=== PATIENT | female | born 1975 | race Caucasian/White ===

== ENCOUNTER 2022-12-27 00:18 | Emergency (ER) | payer OTHER, SELFPAY ==
[2022-12-27 00:24] VITALS: BP 145/94; PULSE 71; RESP 20; TEMP 36.6; O2SAT 99; BMI 47.0
--- NOTE | 2022-12-27 00:45 | ED.ABDPAIN1 ---
HPI - Abdominal Pain General Chief Complaint: Abdominal Pain Stated Complaint: abd pain Time Seen by Provider: 12/27/22 00:44 Mode of arrival: walk-in Limitations: no limitations History of Present Illness HPI narrative: This 47-year-old female who is visiting her family locally and from [place] presents for evaluation of right lower quadrant abdominal pain. The patient has a history of Crohn's disease. She states that she started feeling unwell on Sunday, 2 days ago. Since that time she started having some bloody diarrhea. She is currently on some steroids due to her asthma. She denies any fever. She states that this is a typical Crohn's exacerbation for her, she gets pain in the right lower quadrant/terminal ileum area. She has never had to have a colon resection. She does get colonoscopy frequently due to a family history of colon cancer. She denies any chest pain or shortness of breath. She has not had a fever. She denies any dizziness or syncope. Related Data Allergies Allergy/AdvReac Type Severity Reaction Status Date / Time prochlorperazine Allergy Intermediate Shakiness Verified 12/27/22 00:32 [From Compazine] Iodinated Contrast Media Allergy Hives Verified 12/27/22 00:33 NSAIDS (Non-Steroidal AdvReac Severe Anaphylaxis Verified 12/27/22 00:32 Anti-Inflamma promethazine [From Phenergan] AdvReac Intermediate Shakiness Verified 12/27/22 00:32 Review of Systems ROS Status of ROS 10 or more systems reviewed and unremarkable except as noted in history and below [facility] Medical History (Updated 12/27/22 @ 03:20 by Melvi Joe MD) Social History Smoking status: Never smoker Exam Narrative Exam Narrative: Nurses note and vital signs reviewed. She is mildly hypertensive a blood pressure of 145/94, has a normal pulse, normal temperature and is not hypoxic with pulse ox of 99 percent on room air General: Obese female resting comfortably on the stretcher, no respiratory distress, she moves easily about the stretcher with no apparent discomfort. No active vomiting. Skin: Warm, dry, no pallor noted. There is no rash noted. Head: Normocephalic, atraumatic Eye: Normal conjunctiva, EOMI. PERRL Ears, Nose, Mouth, and Throat: oral mucosa is moist. Cardiovascular: Regular Rate and Rhythm S1 and S2, no murmurs rubs or gallops appreciated Respiratory: Patient is in no distress, no accessory muscle use, lungs are clear to auscultation, no wheezing, rales or rhonchi Back: non-tender, no CVA tenderness bilaterally to percussion. GI: Obese, soft, nondistended, tenderness in the right mid to lower quadrant, no voluntary guarding appreciated Musculoskeletal: The patient has no evidence of calf tenderness, no pitting edema, symmetrical pulses noted bilaterally Neurological: A&O x4, normal speech Psychiatric: Cooperative Constitutional Vital Signs, click to edit/add: Last Vital Signs Temp 97.9 F 12/27/22 00:24 Pulse 71 12/27/22 00:24 Resp 20 12/27/22 00:24 BP 145/94 H 12/27/22 00:24 Pulse Ox 99 12/27/22 00:24 O2 Del Method Room Air 12/27/22 00:24 Course Vital Signs Vital signs: Vital Signs Temperature 97.9 F 12/27/22 00:24 Pulse Rate 71 12/27/22 00:24 Respiratory Rate 20 12/27/22 00:24 Blood Pressure 145/94 H 12/27/22 00:24 Pulse Oximetry 99 12/27/22 00:24 Oxygen Delivery Method Room Air 12/27/22 00:24 Temperature 97.9 F 12/27/22 00:24 Pulse Rate 71 12/27/22 00:24 Respiratory Rate 20 12/27/22 00:24 Blood Pressure 145/94 H 12/27/22 00:24 Pulse Oximetry 99 12/27/22 00:24 Oxygen Delivery Method Room Air 12/27/22 00:24 MDM - Abdominal Pain MDM Narrative Medical decision making narrative: This 47-year-old female who is visiting from [place] and has a history of Crohn disease presents for evaluation of a Crohn's exacerbation with abdominal pain in the right mid to lower quadrant, nausea, vomiting and bloody stool. She is currently on steroid for asthma. She takes Humira for her Crohn's disease. She has never had a bowel obstruction or resection in the past. She does get yearly colonoscopies due to a family history of colon cancer. On arrival she was seen and evaluated in room 8. She is well-appearing without active vomiting. She is ambulatory without difficulty. I was able to establish an IV in her left forearm and she was given IV fluids, Zofran and a milligram of Dilaudid. On reevaluation she stated that she was still having some pain and requested additional dose of Dilaudid. I exlained to her that I could only do 2 mg of Dilaudid total or she would have to be admitted or transferred to Hospital closer to where she is from. She verbalized understanding of that. She was given additional dose of Dilaudid and then started to have redness and itching, and mild reaction from the Dilaudid. She states she typically gets this reaction from morphine. Routine labs are reviewed. She hasn't mildly elevated white count at 11.5. She has a normal hemoglobin. Her electrolytes are normal with the exception of a glucose of 155. She is not diabetic and this may be related to the fact that she was not nothing by mouth and she was also taking steroids for her asthma. She is otherwise hemodynamically stable for discharge. She requested a prescription of Zofran to use because she did not bring any Zofran with her from [place]. I did review her OARRs report and it does not show any recent activity Lab Data Labs: Lab Results 12/27/22 Range/Units 00:45 WBC 11.5 H (4.0-11.0) 10^3/uL RBC 4.92 (4.20-5.40) 10^6/uL Hgb 12.9 (12.0-16.0) g/dL Hct 40.6 (36.0-48.0) % MCV 82.5 (81.0-99.0) fL MCH 26.2 L (26.7-34.0) pg MCHC 31.8 (29.9-35.2) g/dL RDW 14.8 (11.0-15.0) % Plt Count 361 (150-450) 10^3/uL MPV 9.0 L (9.5-13.5) fL Neut % (Auto) 74.1 (43.0-75.0) % Lymph % (Auto) 18.0 L (20.5-60.0) % [place] % (Auto) 6.9 (1.7-12.0) % Eos % (Auto) 0.2 L (0.9-7.0) % Baso % (Auto) 0.3 (0.2-2.0) % Neut # (Auto) 8.5 H (1.4-6.5) 10^3/uL Lymph # (Auto) 2.1 (1.2-3.8) 10^3/uL [place] # (Auto) 0.8 (0.3-0.8) 10^3/uL Eos # (Auto) 0.0 (0.0-0.7) 10^3/uL Baso # (Auto) 0.0 (0.0-0.1) 10^3/uL Abs Immat Gran (auto) 0.06 H (0.00-0.03) 10^3/uL Imm/Tot Granulo (auto) 0.5 (0.0-0.5) % Sodium 138 (136-145) mmol/L Potassium 3.8 (3.5-5.1) mmol/L Chloride 101 (98-107) mmol/L Carbon Dioxide 27.4 (21.0-32.0) mmol/L Anion Gap 13.4 BUN 19.0 H (7.0-18.0) mg/dL Creatinine 1.02 (0.55-1.02) mg/dL Est GFR ( Amer) >60 (>=60) Est GFR (Non-Af Amer) 59 L (>=60) BUN/Creatinine Ratio 18.6 Glucose 155 H (74-106) mg/dL Calcium 9.3 (8.5-10.1) mg/dL Total Bilirubin 0.4 (0.2-1.0) mg/dL AST 16 (15-37) U/L ALT 39 (14-59) U/L Alkaline Phosphatase 74 (46-116) U/L Total Protein 7.5 (6.4-8.2) g/dL Albumin 3.6 (3.4-5.0) g/dL Globulin 3.9 g/dL Albumin/Globulin Ratio 0.9 Discharge Plan Discharge Chief Complaint: Abdominal Pain Clinical Impression: Crohn's disease Patient Disposition: Home, Self-Care Time of Disposition Decision: 03:19 Condition: Good Stand Alone Forms: Portal Instructions Referrals: Physician,Non-Staff, MD [Primary Care Provider] - 1 week
[2022-12-27 01:08] LABS: Basophils Percent Auto 0.3 % (0.2-2.0); Eosinophils Percent Auto 0.2 % (0.9-7.0); Hematocrit 40.6 % (36.0-48.0); Hemoglobin 12.9 g/dL (12.0-16.0); Immature Granulocytes Abs Auto 0.06 10^3/uL (0.00-0.03); Immature Granulocytes Pct Auto 0.5 % (0.0-0.5); Lymphocytes Absolute Auto 2.1 10^3/uL (1.2-3.8); Mean Corpuscular HGB Conc 31.8 g/dL (29.9-35.2); Mean Corpuscular Hemoglobin 26.2 pg (26.7-34.0); Mean Corpuscular Volume 82.5 fL (81.0-99.0); Monocytes Absolute Auto 0.8 10^3/uL (0.3-0.8); Monocytes Percent Auto 6.9 % (1.7-12.0); Neutrophils Absolute Auto 8.5 10^3/uL (1.4-6.5); Neutrophils Percent Auto 74.1 % (43.0-75.0); Platelet Count 361 10^3/uL (150-450); Red Blood Count 4.92 10^6/uL (4.20-5.40); Red Cell Distribution Width 14.8 % (11.0-15.0); White Blood Count 11.5 10^3/uL (4.0-11.0)
--- NOTE | 2022-12-27 01:08 | PC.NURSE ---
3 failed attempts for IV start
[2022-12-27 01:32] LABS: Alanine Aminotransferase 39 U/L (14-59); Albumin Globulin Ratio 0.9; Albumin Level 3.6 g/dL (3.4-5.0); Alkaline Phosphatase 74 U/L (46-116); Anion Gap 13.4; Aspartate Amino Transferase 16 U/L (15-37); BUN Creatinine Ratio 18.6; Bilirubin Total 0.4 mg/dL (0.2-1.0); Calcium 9.3 mg/dL (8.5-10.1); Carbon Dioxide 27.4 mmol/L (21.0-32.0); Chloride 101 mmol/L (98-107); Estimated GFR (African America >60 (>=60); Estimated GFR (Non-African Ame 59 (>=60); Globulin 3.9 g/dL; Glucose 155 mg/dL (74-106); Potassium 3.8 mmol/L (3.5-5.1); Sodium 138 mmol/L (136-145); Total Protein 7.5 g/dL (6.4-8.2)
[2022-12-27] MEDS: ONDANSETRON PF 4 MG/2 ML VIAL IV (01:41)
[2022-12-27] MEDS: HYDROMORPHONE HCL 0.5 MG/0.5 ML SYRINGE 1 MG IV ×2 (01:41→02:43)
[2022-12-27] MEDS: 0.9 % SODIUM CHLORIDE 1,000 ML 1000 ML IV (01:41)
[2022-12-27] MEDS: METHYLPREDNISOLONE SOD SUCC PF 125 MG/2 ML VIAL IVP (02:43)
[2022-12-27] MEDS: DIPHENHYDRAMINE HCL 50 MG/ML (1ML) VIAL 25 MG IV (03:06)
== END 2022-12-27 03:58 | disposition home or self-care (01) ==
PROVIDERS: Emergency Provider Emergency Medicine
DX: K50.90 Crohn's disease, unspecified, without complications (principal); J45.909 Unspecified asthma, uncomplicated; Z80.0 Family history of malignant neoplasm of digestive organs; Z79.899 Other long term (current) drug therapy; L29.9 Pruritus, unspecified; T40.2X5A Adverse effect of other opioids, initial encounter; R10.31 Right lower quadrant pain
CPT/HCPCS: 36415; 80053; 85025; 96374; 96375; 96376; 99284; J1170; J2930

== ENCOUNTER 2023-01-19 00:37 | Emergency (ER) | payer OTHER, SELFPAY ==
[2023-01-19 00:41] VITALS: BP 122/105; PULSE 96; RESP 20; TEMP 36.7; O2SAT 95; BMI 47.0
--- NOTE | 2023-01-19 01:18 | ED_ITS ---
HPI - Abdominal Pain General Chief Complaint: Abdominal Pain Stated Complaint: ABDOMINAL PAIN Time Seen by Provider: 01/19/23 00:45 History of Present Illness HPI narrative: 47-year-old female who is visiting her cousin and lives in the [facility] and has a history of Crohn's disease presents for evaluation of lower abdominal pain with 2 episodes of vomiting and bloody stool starting earlier this evening. The patient states that she takes Humira for her Crohn's disease. She was seen by myself recently with similar complaints. She states that she took a 10 mg Percocet earlier in the evening without clinical improvement. Her pain is typically in the right lower quadrant of her abdomen. She is status post appendectomy and right ovary resection. She has not had a fever. She denies any chest pain or shortness of breath. She is not currently on any steroids. 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 I reviewed her OARRs report which shows that she recieved 40, 10mg percocet on a monthly basis from an [employer] analyst in [place], [place] Related Data Home Medications Medication Instructions Recorded Confirmed albuterol sulfate 90 mcg/actuation inhalation 01/19/23 aerosol inhaler (Ventolin HFA) dicyclomine 20 mg tablet mg 01/19/23 empagliflozin 25 mg tablet mg 01/19/23 (Jardiance) escitalopram oxalate 10 mg tablet mg 01/19/23 hydrochlorothiazide 12.5 mg tablet mg 01/19/23 hyoscyamine sulfate 0.125 mg tablet mg 01/19/23 insulin glargine 100 unit/mL (3 unit subcut 01/19/23 mL) subcutaneous pen (Lantus Solostar U-100 Insulin) insulin lispro 100 unit/mL subcut 01/19/23 subcutaneous pen (Humalog KwikPen (U-100) Insulin) lansoprazole 30 mg capsule,delayed mg 01/19/23 release lisinopril 20 mg tablet mg 01/19/23 magnesium oxide 400 mg (241.3 mg mg 01/19/23 magnesium) tablet oxycodone-acetaminophen 10 mg-325 tab 01/19/23 mg tablet tiotropium bromide 1.25 inhalation 01/19/23 mcg/actuation mist for inhalation (Spiriva Respimat) tizanidine 4 mg tablet mg 01/19/23 trazodone 150 mg tablet mg 01/19/23 Allergies Allergy/AdvReac Type Severity Reaction Status Date / Time prochlorperazine Allergy Intermediate Shakiness Verified 12/27/22 00:32 [From Compazine] Iodinated Contrast Media Allergy Hives Verified 12/27/22 00:33 NSAIDS (Non-Steroidal AdvReac Severe Anaphylaxis Verified 12/27/22 00:32 Anti-Inflamma promethazine [From Phenergan] AdvReac Intermediate Shakiness Verified 12/27/22 00:32 Review of Systems ROS Status of ROS 10 or more systems reviewed and unremarkable except as noted in history and below [facility] Medical History (Updated 01/19/23 @ 02:53 by Melvi Joe MD) Social History Smoking status: Never smoker Exam Narrative Exam Narrative: Nurses note and vital signs reviewed and patient is not hypoxic. Blood pressure is noted to be elevated at 122/105, pulse is elevated at 96, General: Obese, nontoxic female resting comfortably on the stretcher, no respiratory distress, no active vomiting Skin: Warm, dry, no pallor noted. There is no rash noted. Flushed faces Head: Normocephalic, atraumatic Eye: Normal conjunctiva, no drainage, EOMI. PERRL Ears, Nose, Mouth, and Throat: oral mucosa is moist. Cardiovascular: Regular Rate and Rhythm Respiratory: Patient is in no distress, no accessory muscle use, lungs are clear to auscultation, no wheezing, rales or rhonchi Back: non-tender, no CVA tenderness bilaterally to percussion. GI: Obese, soft, non distended, diffusely tender- localizes to RLQ with voluntary guarding Musculoskeletal: The patient has no evidence of calf tenderness, no pitting edema, symmetrical pulses noted bilaterally Neurological: A&O x4, normal speech Psychiatric: Cooperative Constitutional Vital Signs, click to edit/add: Last Vital Signs Temp 98.0 F 01/19/23 00:41 Pulse 96 H 01/19/23 00:41 Resp 20 01/19/23 00:41 BP 122/105 H 01/19/23 00:41 Pulse Ox 95 01/19/23 00:41 O2 Del Method Room Air 01/19/23 00:41 Course Reevaluation(s) Reevaluation #1: Patient reevaluated after IV fluids, Zofran and 1 mg of Dilaudid with Benadryl. She states her pain is improved but requested one additional dose of Dilaudid. She was given additional dose of Dilaudid and it was noticed that her IV fluids had not been flowing because they were somewhat kinked off. We offered to let her stay while the IV fluids infused but she stated she was feeling better, able tolerate clear liquids and wished to be discharged home. She alleges that her cousin will be driving her home. Vital Signs Vital signs: Vital Signs Temperature 98.0 F 01/19/23 00:41 Pulse Rate 96 H 01/19/23 00:41 Respiratory Rate 20 01/19/23 00:41 Blood Pressure 122/105 H 01/19/23 00:41 Pulse Oximetry 95 01/19/23 00:41 Oxygen Delivery Method Room Air 01/19/23 00:41 Temperature 98.0 F 01/19/23 00:41 Pulse Rate 96 H 01/19/23 00:41 Respiratory Rate 20 01/19/23 00:41 Blood Pressure 122/105 H 01/19/23 00:41 Pulse Oximetry 95 01/19/23 00:41 Oxygen Delivery Method Room Air 01/19/23 00:41 MDM - Abdominal Pain MDM Narrative Medical decision making narrative: This 47-year-old female with a history of Crohn's disease according to her history who sees a baseball glove shaper in [facility] where she resides presents for evaluuation of lower abdominal pain with nausea, vomiting and bloody diarrhea consistent with a Crohn's exacerbation. She was seen by myself recently with the exact same presentation. She has not noted to have any vomiting in the emergency department. She has not produced any bloody stool. An IV was placed and she was medicated with IV fluids, 1 mg IV dialudid, 125 mg of IV Solu-Medrol,, Zofran and 25 mg of IV Benadryl as she has an ALLERGIC reaction to the Dilaudid the last time I treated her. Routine labs are reviewed. She has a normal white count 5. Electrolytes are normal with the exception of a mild elevation of her creatinine 1.05 and an elevated glucose of 182. Reevaluation she stated she was feeling better but requested an additional dose of Dilaudid, she knows I will not provide her with more than 2 mg, after the 2nd dose of Dilaudid she requested to be released. She declined CT scanning as she has had multiple CT scans in the past due to her diagnosis of Crohns disease. Lab Data Labs: Lab Results 01/19/23 Range/Units 00:55 WBC 5.9 (4.0-11.0) 10^3/uL RBC 4.72 (4.20-5.40) 10^6/uL Hgb 12.5 (12.0-16.0) g/dL Hct 39.3 (36.0-48.0) % MCV 83.3 (81.0-99.0) fL MCH 26.5 L (26.7-34.0) pg MCHC 31.8 (29.9-35.2) g/dL RDW 14.4 (11.0-15.0) % Plt Count 367 (150-450) 10^3/uL MPV 9.1 L (9.5-13.5) fL Neut % (Auto) 59.0 (43.0-75.0) % Lymph % (Auto) 29.9 (20.5-60.0) % [place] % (Auto) 8.4 (1.7-12.0) % Eos % (Auto) 1.7 (0.9-7.0) % Baso % (Auto) 0.7 (0.2-2.0) % Neut # (Auto) 3.5 (1.4-6.5) 10^3/uL Lymph # (Auto) 1.8 (1.2-3.8) 10^3/uL [place] # (Auto) 0.5 (0.3-0.8) 10^3/uL Eos # (Auto) 0.1 (0.0-0.7) 10^3/uL Baso # (Auto) 0.0 (0.0-0.1) 10^3/uL Abs Immat Gran (auto) 0.02 (0.00-0.03) 10^3/uL Imm/Tot Granulo (auto) 0.3 (0.0-0.5) % ESR 63 H (<=20) mm/hr Sodium 138 (136-145) mmol/L Potassium 3.3 L (3.5-5.1) mmol/L Chloride 102 (98-107) mmol/L Carbon Dioxide 26.8 (21.0-32.0) mmol/L Anion Gap 12.5 BUN 14.0 (7.0-18.0) mg/dL Creatinine 1.05 H (0.55-1.02) mg/dL Est GFR ( Amer) >60 (>=60) Est GFR (Non-Af Amer) 57 L (>=60) BUN/Creatinine Ratio 13.3 Glucose 182 H (74-106) mg/dL Calcium 8.8 (8.5-10.1) mg/dL Total Bilirubin 0.5 (0.2-1.0) mg/dL AST 25 (15-37) U/L ALT 44 (14-59) U/L Alkaline Phosphatase 68 (46-116) U/L Total Protein 7.5 (6.4-8.2) g/dL Albumin 3.6 (3.4-5.0) g/dL Globulin 3.9 g/dL Albumin/Globulin Ratio 0.9 Lipase 112.0 (73.0-393.0) U/L Discharge Plan Discharge Chief Complaint: Abdominal Pain Clinical Impression: Crohn's disease, Abdominal pain Patient Disposition: Home, Self-Care Time of Disposition Decision: 02:31 Condition: Good Prescriptions / Home Meds: No Action tizanidine 4 mg tablet lisinopril 20 mg tablet magnesium oxide 400 mg (241.3 mg magnesium) tablet oxycodone-acetaminophen 10-325 mg tablet dicyclomine 20 mg tablet hyoscyamine sulfate 0.125 mg tablet trazodone 150 mg tablet lansoprazole 30 mg capsule,delayed release(DR/EC) albuterol sulfate [Ventolin HFA] 90 mcg/actuation HFA aerosol inhaler INHALATION insulin lispro [Humalog KwikPen Insulin] 100 unit/mL insulin pen SUBCUT escitalopram oxalate 10 mg tablet hydrochlorothiazide 12.5 mg tablet insulin glargine [Lantus Solostar U-100 Insulin] 100 unit/mL (3 mL) insulin pen SUBCUT Jardiance 25 mg tablet Spiriva Respimat 1.25 mcg/actuation mist INHALATION Instructions: Crohn Disease (ED) Stand Alone Forms: Portal Instructions Referrals: Physician,Non-Staff, MD [Primary Care Provider] - 1 week Discharge Date/Time: 01/19/23 02:48
[2023-01-19 01:24] LABS: Basophils Percent Auto 0.7 % (0.2-2.0); Eosinophils Absolute Auto 0.1 10^3/uL (0.0-0.7); Eosinophils Percent Auto 1.7 % (0.9-7.0); Hematocrit 39.3 % (36.0-48.0); Hemoglobin 12.5 g/dL (12.0-16.0); Immature Granulocytes Abs Auto 0.02 10^3/uL (0.00-0.03); Immature Granulocytes Pct Auto 0.3 % (0.0-0.5); Lymphocytes Absolute Auto 1.8 10^3/uL (1.2-3.8); Lymphocytes Percent Auto 29.9 % (20.5-60.0); Mean Corpuscular HGB Conc 31.8 g/dL (29.9-35.2); Mean Corpuscular Hemoglobin 26.5 pg (26.7-34.0); Mean Corpuscular Volume 83.3 fL (81.0-99.0); Mean Platelet Volume 9.1 fL (9.5-13.5); Monocytes Absolute Auto 0.5 10^3/uL (0.3-0.8); Monocytes Percent Auto 8.4 % (1.7-12.0); Neutrophils Absolute Auto 3.5 10^3/uL (1.4-6.5); Platelet Count 367 10^3/uL (150-450); Red Blood Count 4.72 10^6/uL (4.20-5.40); Red Cell Distribution Width 14.4 % (11.0-15.0); White Blood Count 5.9 10^3/uL (4.0-11.0)
[2023-01-19 01:29] LABS: Erythrocyte Sedimentation Rate 63 mm/hr (<=20)
[2023-01-19] MEDS: 0.9 % SODIUM CHLORIDE 1,000 ML 1000 ML IV (01:31)
[2023-01-19] MEDS: METHYLPREDNISOLONE SOD SUCC PF 125 MG/2 ML VIAL IVP (01:31)
[2023-01-19] MEDS: HYDROMORPHONE HCL 2 MG/ML VIAL 1 MG IV ×2 (01:32→02:35)
[2023-01-19] MEDS: DIPHENHYDRAMINE HCL 50 MG/ML (1ML) VIAL 25 MG IV (01:32)
[2023-01-19 01:33] LABS: Alanine Aminotransferase 44 U/L (14-59); Albumin Globulin Ratio 0.9; Albumin Level 3.6 g/dL (3.4-5.0); Alkaline Phosphatase 68 U/L (46-116); Anion Gap 12.5; Aspartate Amino Transferase 25 U/L (15-37); BUN Creatinine Ratio 13.3; Bilirubin Total 0.5 mg/dL (0.2-1.0); Calcium 8.8 mg/dL (8.5-10.1); Carbon Dioxide 26.8 mmol/L (21.0-32.0); Chloride 102 mmol/L (98-107); Estimated GFR (African America >60 (>=60); Estimated GFR (Non-African Ame 57 (>=60); Globulin 3.9 g/dL; Glucose 182 mg/dL (74-106); Potassium 3.3 mmol/L (3.5-5.1); Sodium 138 mmol/L (136-145); Total Protein 7.5 g/dL (6.4-8.2)
[2023-01-19] MEDS: ONDANSETRON PF 4 MG/2 ML VIAL IV (02:04)
[2023-01-19 02:49] VITALS: BP 129/69
== END 2023-01-19 02:48 | disposition home or self-care (01) ==
PROVIDERS: Emergency Provider Emergency Medicine
DX: K50.90 Crohn's disease, unspecified, without complications (principal); R10.9 Unspecified abdominal pain; Z79.899 Other long term (current) drug therapy; Z79.4 Long term (current) use of insulin; E66.9 Obesity, unspecified; Z68.42 Body mass index [BMI] 45.0-49.9, adult
CPT/HCPCS: 36415; 80053; 83690; 85025; 85652; 96374; 96375; 96376; 99284; J1170; J2930

== ENCOUNTER 2023-07-03 21:21 | Emergency (ER) | payer OTHER, SELFPAY ==
[2023-07-03] VITALS (13 sets, daily range): BP systolic 120–148; BP diastolic 60–91; PULSE 83; RESP 16; TEMP 36.8; O2SAT 95–100; BMI 47.0
--- NOTE | 2023-07-03 21:44 | ED_ITS ---
HPI - Abdominal Pain General Chief Complaint: Abdominal Pain Stated Complaint: Abdominal Pain - Hx Crohn's, Blood in Stool Time Seen by Provider: 07/03/23 21:34 Source: patient Mode of arrival: walk-in History of Present Illness HPI narrative: past history of Crohn's disease. Receives Humira injections q2wks. States last injection one week ago. Presents complaining of Crohn's flare. Passing small amount of blood. Has abdominal cramping pain. sharp pain. No nauseam vomiting or fever. IDDM . states diabetes due to years of steroid use. States she is under increased stress. 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: Reports abdominal pain Related Data Home Medications Medication Instructions Recorded Confirmed albuterol sulfate 90 mcg/actuation 2 puff inhalation Q6H PRN 01/19/23 07/03/23 aerosol inhaler (Ventolin HFA) shortness of breath or wheezing empagliflozin 25 mg tablet 25 mg PO DAILY 01/19/23 07/03/23 (Jardiance) escitalopram oxalate 10 mg tablet 10 mg PO DAILY 01/19/23 07/03/23 hydrochlorothiazide 12.5 mg tablet 25 mg PO DAILY 01/19/23 07/03/23 insulin glargine 100 unit/mL (3 32 unit subcut QAM 01/19/23 07/03/23 mL) subcutaneous pen (Lantus Solostar U-100 Insulin) insulin lispro 100 unit/mL 1 sliding scale dose subcut 01/19/23 07/03/23 subcutaneous pen (Humalog KwikPen TIDWMEAL (U-100) Insulin) lisinopril 20 mg tablet 20 mg PO DAILY 01/19/23 07/03/23 magnesium oxide 400 mg (241.3 mg 400 mg PO DAILY 01/19/23 07/03/23 magnesium) tablet oxycodone-acetaminophen 10 mg-325 1 tab PO Q8H PRN pain 01/19/23 07/03/23 mg tablet tiotropium bromide 1.25 2 puff inhalation DAILY 01/19/23 07/03/23 mcg/actuation mist for inhalation (Spiriva Respimat) tizanidine 4 mg tablet 4 mg PO DAILY 01/19/23 07/03/23 trazodone 150 mg tablet 150 mg PO DAILY 01/19/23 07/03/23 atorvastatin 20 mg tablet 20 mg PO QPM 07/03/23 07/03/23 betamethasone valerate 0.1 % 1 applic topical DAILY 07/03/23 07/03/23 topical cream Allergies Allergy/AdvReac Type Severity Reaction Status Date / Time prochlorperazine Allergy Intermediate Shakiness Verified 12/27/22 00:32 [From Compazine] Iodinated Contrast Media Allergy Hives Verified 12/27/22 00:33 NSAIDS (Non-Steroidal AdvReac Severe Anaphylaxis Verified 12/27/22 00:32 Anti-Inflamma promethazine [From Phenergan] AdvReac Intermediate Shakiness Verified 12/27/22 00:32 Review of Systems ROS Status of ROS 10 or more systems reviewed and unremark able except as noted in history and below [facility] Medical History (Updated 07/03/23 @ 23:47 by Jean Liang MD) Crohn's disease ?K50.90 - Crohn's disease, unspecified, without complications (ICD-10) Social History Smoking status: Never smoker Exam Constitutional Vital Signs, click to edit/add: Last Vital Signs Temp 98.3 F 07/03/23 21:31 Pulse 83 07/03/23 21:31 Resp 16 07/03/23 21:31 BP 129/82 07/04/23 00:16 Pulse Ox 95 07/04/23 00:16 O2 Del Method Room Air 07/03/23 22:12 Common normals: no apparent distress, oriented x3, no limitations, healthy appearing, alert and well nourished Eye Common normals: PERRL and EOMs intact bilaterally Chest Common normals: inspection of chest normal and palpation of chest normal Respiratory Common normals: normal respiratory effort, no retractions, no use of accessory muscles and clear to auscultation bilaterally Cardio Common normals: regular rate, regular rhythm, S1 normal heart sound and S2 normal heart sound GI Common normals: Normal to inspection, nondistended, normoactive bowel sounds present, soft to palpation and non-tender Extremity Common normals: normal to inspection and full ROM Neuro Common normals: oriented x3, CN's II-XII intact bilaterally and moves all extremities Psych Appearance: grossly normal Course Vital Signs Vital signs: Vital Signs Temperature 98.3 F 07/03/23 21:31 Pulse Rate 83 07/03/23 21:31 Respiratory Rate 16 07/03/23 21:31 Blood Pressure 120/78 07/03/23 21:31 Pulse Oximetry 96 07/03/23 21:31 Oxygen Delivery Method Room Air 07/03/23 21:31 Temperature 98.3 F 07/03/23 21:31 Pulse Rate 83 07/03/23 21:31 Respiratory Rate 16 07/03/23 21:31 Blood Pressure 129/82 07/04/23 00:16 Pulse Oximetry 95 07/04/23 00:16 Oxygen Delivery Method Room Air 07/03/23 22:12 MDM - Abdominal Pain MDM Narrative Medical decision making narrative: patient past history of crohns disease. Presents complaining of flare and states she had passed some blood. Abdominal exam with nonspecific mild -mod tenderness. No guarding. she is diabetic. Labs WNL except mild elevation of glucose. Patient hydrated in the department and medicated with solumedrol, morphine and benadryl with improvement in her symptoms. Discharged home with a prescription of prednisone and is to follow up with her doctor Lab Data Labs: Lab Results 07/03/23 07/03/23 Range/Units 22:00 23:20 WBC 8.5 (4.0-11.0) 10^3/uL RBC 4.76 (4.20-5.40) 10^6/uL Hgb 13.2 (12.0-16.0) g/dL Hct 41.6 (36.0-48.0) % MCV 87.4 (81.0-99.0) fL MCH 27.7 (26.7-34.0) pg MCHC 31.7 (29.9-35.2) g/dL RDW 13.8 (11.0-15.0) % Plt Count 307 (150-450) 10^3/uL MPV 9.4 L (9.5-13.5) fL Neut % (Auto) 66.3 (43.0-75.0) % Lymph % (Auto) 24.7 (20.5-60.0) % [place] % (Auto) 7.3 (1.7-12.0) % Eos % (Auto) 0.6 L (0.9-7.0) % Baso % (Auto) 0.6 (0.2-2.0) % Neut # (Auto) 5.6 (1.4-6.5) 10^3/uL Lymph # (Auto) 2.1 (1.2-3.8) 10^3/uL [place] # (Auto) 0.6 (0.3-0.8) 10^3/uL Eos # (Auto) 0.1 (0.0-0.7) 10^3/uL Baso # (Auto) 0.1 (0.0-0.1) 10^3/uL Abs Immat Gran (auto) 0.04 H (0.00-0.03) 10^3/uL Imm/Tot Granulo (auto) 0.5 (0.0-0.5) % Sodium 140 (136-145) mmol/L Potassium 3.7 (3.5-5.1) mmol/L Chloride 102 (98-107) mmol/L Carbon Dioxide 32.0 (21.0-32.0) mmol/L Anion Gap 9.7 BUN 16.0 (7.0-18.0) mg/dL Creatinine 1.01 (0.55-1.02) mg/dL Est GFR ( Amer) >60 (>=60) Est GFR (Non-Af Amer) 59 L (>=60) BUN/Creatinine Ratio 15.8 Glucose 162 H (74-106) mg/dL Lactate 1.4 (0.4-2.0) mmol/L Calcium 9.4 (8.5-10.1) mg/dL Total Bilirubin 0.4 (0.2-1.0) mg/dL AST 26 (15-37) U/L ALT 47 (14-59) U/L Alkaline Phosphatase 76 (46-116) U/L Troponin I High Sens 5.2 (4.0-51.3) pg/mL Total Protein 7.4 (6.4-8.2) g/dL Albumin 3.2 L (3.4-5.0) g/dL Globulin 4.2 g/dL Albumin/Globulin Ratio 0.8 Lipase 51.0 (16.0-77.0) U/L Urine Color Lt. yellow (YELLOW) Urine Clarity Clear (CLEAR) Urine pH 5.5 (5.0-9.0) Ur Specific [place] 1.020 (1.005-1.025) Urine Protein Negative (NEG/TRACE) mg/dL Urine Glucose (UA) >=1000 A (NEGATIVE) mg/dL Urine Ketones Negative (NEGATIVE) mg/dL Urine Occult Blood Negative (NEGATIVE) Urine Nitrite Negative (NEGATIVE) Urine Bilirubin Negative (NEGATIVE) Urine Urobilinogen 0.2 (0.2-1.0) EU/dL Ur Leukocyte Esterase Negative (NEGATIVE) Discharge Plan Discharge Chief Complaint: Abdominal Pain Clinical Impression: Crohn's disease Patient Disposition: Home, Self-Care Condition: Good Prescriptions / Home Meds: No Action tizanidine 4 mg tablet 4 mg PO DAILY lisinopril 20 mg tablet 20 mg PO DAILY magnesium oxide 400 mg (241.3 mg magnesium) tablet 400 mg PO DAILY oxycodone-acetaminophen 10-325 mg tablet 1 tab PO Q8H PRN (Reason: pain) trazodone 150 mg tablet 150 mg PO DAILY albuterol sulfate [Ventolin HFA] 90 mcg/actuation HFA aerosol inhaler 2 puff INHALATION Q6H PRN (Reason: shortness of breath or wheezing) insulin lispro [Humalog KwikPen Insulin] 100 unit/mL insulin pen 1 sliding scale dose SUBCUT TIDWMEAL escitalopram oxalate 10 mg tablet 10 mg PO DAILY hydrochlorothiazide 12.5 mg tablet 25 mg PO DAILY insulin glargine [Lantus Solostar U-100 Insulin] 100 unit/mL (3 mL) insulin pen 32 unit SUBCUT QAM Jardiance 25 mg tablet 25 mg PO DAILY Spiriva Respimat 1.25 mcg/actuation mist 2 puff INHALATION DAILY atorvastatin 20 mg tablet 20 mg PO QPM betamethasone valerate 0.1 % cream 1 applic TOPICAL DAILY Instructions: Crohn Disease (ED) Stand Alone Forms: Portal Instructions Referrals: Physician,Non-Staff, MD [Primary Care Provider] - 1 week Discharge Date/Time: 07/04/23 00:45
[2023-07-03 22:14] LABS: Basophils Absolute Auto 0.1 10^3/uL (0.0-0.1); Basophils Percent Auto 0.6 % (0.2-2.0); Eosinophils Absolute Auto 0.1 10^3/uL (0.0-0.7); Eosinophils Percent Auto 0.6 % (0.9-7.0); Hematocrit 41.6 % (36.0-48.0); Hemoglobin 13.2 g/dL (12.0-16.0); Immature Granulocytes Abs Auto 0.04 10^3/uL (0.00-0.03); Immature Granulocytes Pct Auto 0.5 % (0.0-0.5); Lymphocytes Absolute Auto 2.1 10^3/uL (1.2-3.8); Lymphocytes Percent Auto 24.7 % (20.5-60.0); Mean Corpuscular HGB Conc 31.7 g/dL (29.9-35.2); Mean Corpuscular Hemoglobin 27.7 pg (26.7-34.0); Mean Corpuscular Volume 87.4 fL (81.0-99.0); Mean Platelet Volume 9.4 fL (9.5-13.5); Monocytes Absolute Auto 0.6 10^3/uL (0.3-0.8); Monocytes Percent Auto 7.3 % (1.7-12.0); Neutrophils Absolute Auto 5.6 10^3/uL (1.4-6.5); Neutrophils Percent Auto 66.3 % (43.0-75.0); Platelet Count 307 10^3/uL (150-450); Red Blood Count 4.76 10^6/uL (4.20-5.40); Red Cell Distribution Width 13.8 % (11.0-15.0); White Blood Count 8.5 10^3/uL (4.0-11.0)
[2023-07-03] MEDS: 0.9 % SODIUM CHLORIDE 1,000 ML 999 ML IV (22:25)
[2023-07-03] MEDS: ONDANSETRON PF 4 MG/2 ML VIAL IV (22:25)
[2023-07-03] MEDS: METHYLPREDNISOLONE SOD SUCC PF 125 MG/2 ML VIAL IVP (22:26)
[2023-07-03 22:30] LABS: Anion Gap 9.7
[2023-07-03 22:32] LABS: Alanine Aminotransferase 47 U/L (14-59); Albumin Globulin Ratio 0.8; Albumin Level 3.2 g/dL (3.4-5.0); Alkaline Phosphatase 76 U/L (46-116); Aspartate Amino Transferase 26 U/L (15-37); BUN Creatinine Ratio 15.8; Bilirubin Total 0.4 mg/dL (0.2-1.0); Calcium 9.4 mg/dL (8.5-10.1); Chloride 102 mmol/L (98-107); Estimated GFR (African America >60 (>=60); Estimated GFR (Non-African Ame 59 (>=60); Globulin 4.2 g/dL; Glucose 162 mg/dL (74-106); Potassium 3.7 mmol/L (3.5-5.1); Sodium 140 mmol/L (136-145); Total Protein 7.4 g/dL (6.4-8.2); Troponin I High Sensitivity 5.2 pg/mL (4.0-51.3)
[2023-07-03 22:35] LABS: Lactate/Lactic Acid 1.4 mmol/L (0.4-2.0)
[2023-07-03] MEDS: MORPHINE SULFATE 4 MG/ML VIAL IV (23:11)
[2023-07-03] MEDS: DIPHENHYDRAMINE HCL 50 MG/ML (1ML) VIAL IV (23:11)
[2023-07-03 23:31] LABS: Bilirubin Urine NEGATIVE (NEGATIVE); Blood Urine NEGATIVE (NEGATIVE); Clarity Urine CLEAR (CLEAR); Color Urine LT. YELLOW (YELLOW); Glucose Urine UA >=1000 mg/dL (NEGATIVE); Ketones Urine NEGATIVE (NEGATIVE); Leukocyte Esterase Urine NEGATIVE (NEGATIVE); Nitrite Urine NEGATIVE (NEGATIVE); Protein Urine NEGATIVE (NEG/TRACE); Urobilinogen Urine 0.2 EU/dL (0.2-1.0); pH Urine 5.5 (5.0-9.0)
[2023-07-03 23:33] LABS: Urine Microscopic Indicated NO
[2023-07-04] VITALS: BP 112/92; O2SAT 98
[2023-07-04 00:15] VITALS: O2SAT 95
[2023-07-04 00:16] VITALS: BP 129/82; O2SAT 95
[2023-07-04] MEDS: ONDANSETRON PF 4 MG/2 ML VIAL IV (00:18)
[2023-07-04] MEDS: MORPHINE SULFATE 2 MG/ML SYRINGE IV (00:18)
== END 2023-07-04 00:45 | disposition home or self-care (01) ==
PROVIDERS: Emergency Provider Internal Medicine
DX: K50.90 Crohn's disease, unspecified, without complications (principal); E11.9 Type 2 diabetes mellitus without complications; Z79.899 Other long term (current) drug therapy; Z79.4 Long term (current) use of insulin; Z79.52 Long term (current) use of systemic steroids
CPT/HCPCS: 36415; 80053; 81003; 83605; 83690; 84484; 85025; 96374; 96375; 96376; 99284; J1200; J2270; J2405; J2930

== ENCOUNTER 2023-08-29 19:16 | Emergency (ER) | payer OTHER, SELFPAY ==
[2023-08-29 19:19] VITALS: BP 115/75; PULSE 100; RESP 18; TEMP 36.6; O2SAT 98; BMI 47.0
--- NOTE | 2023-08-29 19:37 | CT_ITS ---
The [address] [address] Patient Name: AYLIN HAYWOOD MRN: [id number] date: 1975 Sex: F Assigned Patient Location: ER Current Patient Location: ER Accession/Order Number: [id number] Exam Date: 08/29/2023 20:20 Report Date: 08/29/2023 21:33 At the request of: NALLELY SANTAMARIA Procedure: CT abdomen pelvis wo con EXAM: CT abdomen pelvis wo con CLINICAL INDICATION: abd pain, hx Crohn's COMPARISON: CT abdomen/pelvis 03/16/2022 TECHNIQUE: Axial CT of the abdomen, and pelvis was performed from the top of the hemidiaphragms to the inferior osseous pelvis without intravenous contrast. 2-D reformats were obtained. Automatic exposure control radiation dose reduction technology was utilized. FINDINGS: Evaluation is limited by lack of intravenous contrast. Visualized portion of the lung bases are unremarkable. Small hiatal hernia. Mild pneumobilia, new from prior. Small nonobstructing bilateral renal calculi, similar to prior. No hydronephrosis. The liver, spleen, adrenal glands and pancreas are otherwise unremarkable. Gallbladder absent. No abdominal aortic aneurysm. No enlarged lymph nodes, free fluid, or free air. Diverticulosis coli without evidence for diverticulitis. The bowel is without evidence of obstruction or adjacent inflammatory changes. Bladder unremarkable. No suspicious osseous lesions. CT/CT abdomen pelvis wo con IMPRESSION: 1. Mild pneumobilia. Correlate for any recent intervention to explain this finding. Less likely this may represent biliary tract infection. 2. Otherwise no significant acute abnormality identified in the abdomen or pelvis, within the limits of unenhanced CT, as described above. Electronically authenticated by: ALEJANDRO JARAMILLO Date: 08/29/2023 21:33
--- OUTSIDE RECORDS SUMMARY | 2023-08-29 19:48 | XMS_ITS | CCD ---
Author Name Unknown Address [id number] [place] [address] Organization [facility] Care Team Providers Care Client Sales And Service Officer Name Role Phone BHURGRI, DUKE Primary Care Unavailable MENDOZA FOREMAN Admitting Unavailable MENDOZA FOREMAN Attending Unavailable JUAREZ SIERRA Consulting Unavailable BHURGRI, DUKE Primary Care Unavailable RUDDY BRADEN Attending Unavailable BHURGRI, DUKE Primary Care Unavailable JC HORN Attending Unavailable Xander Barone Attending Unavailable BHURGRI, DUKE Primary Care Unavailable ARRON PETERSON Attending Unavailable Bhurgri, Duke Primary Care Provider KRISTOPHER MARTINEZ Admitting Unavailable BHURGRI, DUKE Primary Care Unavailable SELF, REFERRED Referring Unavailable PETE HANDLEY Attending Unavailable MAICO SYKES Admitting Unavailable BHURGRI, DUKE Primary Care Unavailable SELF, REFERRED Referring Unavailable XANDER BARONE Attending Unavailable KRISTOPHER MARTINEZ Admitting Unavailable BHURGRI, DUKE Primary Care Unavailable SELF, REFERRED Referring Unavailable PETE HANDLEY Attending Unavailable KRISTOPHER MARTINEZ Admitting Unavailable BHURGRI, DUKE Primary Care Unavailable SELF, REFERRED Referring Unavailable XANDER BARONE Attending Unavailable Required, No Pcp Unavailable Unavailable Mikael Morel Unavailable Aries Merrill Unavailable Unavailable Deidra Mercedes Unavailable Unavailable Bhurgri, Duke Primary Care Provider NON STAFF Primary Care Provider UnavailLINDA Wood Emergency Provider NON STAFF Primary Care Provider UnavailDO Myles Molina Emergency Provider Joseph Donovan Unavailable OLGA LIDIA Rubalcava Attending UnavailDO Moniuqe Triplett Attending Unava ilable NO FAMILY, PHYSICIAN Primary Care Provider Unava ilable MD Huey Maharaj Jr Emergency Provider DR CORTNEY MARTINEZ Admitting Unavailable JUAN, DR CORTNEY Jeffries Consulting Unavailable JUAN, DR CORTNEY Jeffries Attending Unavailable MISC, DR BEE Primary Care Unavailable HINA, DR BROWNING Consulting Unavailable NARCISA CHEN Consulting Unavailable MISC, DR BEE Primary Care Unavailable NAYELY BARNHART Admitting Unavailable NAYELY BARNHART Consulting Unavailable BRONWYN, NAYELY Attending Unavailable OWEN CLEMENTS Consulting Unavailable JUAN, DR CORTNEY Jeffries Admitting Unavailable JUAN, DR CORTNEY Jeffries Consulting Unavailable JUAN, DR CORTNEY Jeffries Attending Unavailable MISC, DR BEE Primary Care Unavailable DEIDRA MILLER Consulting Unavailable NON STAFF Primary Care Unavailable Myles Felix Admitting Unavailable Myles Felix Attending Unavailable Huey Maharaj Jr Admitting Unavailable Huey Maharaj Jr Attending Unavailable NO FAMILY, PHYSICIAN Primary Care Unavailable Provider, No Primary Care Provider UnavailMD Xander Haywood Emergency Provider UnavailDuke Ward MD Primary Care Provider Xander Barone Attending Unavailable Provider, No Primary Care Unavailable BHURGRI, DUKE H Primary Care Unavailable NUNO ODONNELL Attending Unavailable CINDY PROCTOR Referring Unavailable BHURGRI, DUKE H Primary Care Unavailable NGOZI BELL Attending Unavailab abbey BHURGRI, DUKE H Referring Unavailable BHURGRI, DUKE H Primary Care Unavailable Allergies Allergy Classification Reported Allergen(s) Allergy Type Date of Onset Reaction(s) Facility Contrast Media (2 sources) Contrast media; Translations: [iv contrast] Substance Allergy 06-12-20 19 [facility] Haloperidol (1 source) Haloperidol Drug Allergy 10-17-19 20 [facility] Iothalamate (1 source) Iothalamate Drug Allergy 10-17-19 20 [facility] Levamisole (1 source) Levamisole Drug Allergy 06-12-20 19 [facility] NSAIDs (1 source) Ketorolac Drug Allergy 06-12-20 19 [facility] Opioid Agonists (1 source) fentaNYL Drug Allergy 06-12-20 19 [facility] Prochlorperazine (1 source) Prochlorperazine Drug Allergy 06-12-20 19 [facility] (2 sources) Contrast media; Translations: [contrast media (gadolinium-based)] Propensity to adverse reactions to drug (disorder) [facility] (2 sources) Metoclopramide; Translations: [Reglan] Drug Allergy [facility] (6 sources) NSAIDs; Translations: [NSAIDs] Propensity to adverse reactions to drug (disorder) Anaphylaxis [facility] (7 sources) Prochlorperazine; Translations: [Compazine] Drug Allergy 04-09-20 Rash [facility] (7 sources) Promethazine; Translations: [Phenergan] Drug Allergy 04-09-20 21 Other [facility] Comment on above: Jitteriness (6 sources) fentaNYL; Translations: [FENTANYL] Drug Allergy 02-01-20 18 Hives [email or web address] Phone: (3 sources) Ketorolac Drug Allergy 10-19-19 17 Shortness Of Breath [employer] Phone: (3 sources) Metoclopramide Drug Allergy 10-19-19 17 Palpitations [employer] Phone: (9 sources) Prochlorperazine; Translations: [PROCHLORPERAZINE] Drug Allergy 01-13-20 19 Hives [employer] Phone: (3 sources) Promethazine Drug Allergy 10-19-19 17 Palpitations [employer] Phone: (3 sources) Iodides Propensity to adverse reactions to drug 11-08-19 19 Itching [employer] Phone: (4 sources) Contrast media Itching [facility] (7 sources) Ketorolac; Translations: [ketorolac] Drug Allergy 01-02-20 17 Swelling of Lip/Tongue/Thr oat [facility] (6 sources) Promethazine; Translations: [promethazine] Drug Allergy 09-15-19 22 Agitated, Shakiness [facility] (7 sources) Iodinated Cont[facility] Media; Translations: [Iodinated Contrast Media] Allergy to substance 10-27-19 Hives, Other (See Comments) [facility] (6 sources) NSAIDS (Non-Steroidal Anti-Inflamma; Translations: [NSAIDS (Non-Steroidal Anti-Inflamma] Allergy to substance 09-15-19 22 Swelling of Lip/Tongue/Thr oat [facility] (1 source) Haloperidol Drug Allergy 12-03-19 22 [facility] (1 source) Iodine (And Iodine Containting Drugs) Drug allergy (disorder) 04-09-20 21 [facility] (2 sources) NSAIDs; Translations: [NSAIDS (NON-STEROIDAL ANTI-INFLAMMATORY DRUG)] Drug allergy (disorder) 04-09-20 21 [facility] (2 sources) Prochlorperazine Drug Allergy 03-16-20 [facility] (1 source) Iodine Compounds Allergy to substance 07-06-19 Loss of Appetite [facility] (3 sources) Haloperidol; Translations: [HALOPERIDOL] Drug Allergy 03-15-20 [facility] (3 sources) Meperidine; Translations: [MEPERIDINE] Drug Allergy 01-13-20 [facility] (2 sources) Non-steroidal anti-inflammatory agent Propensity to adverse reactions to drug 05-19-20 [facility] (3 sources) Phenergan Plain; Translations: [PHENERGAN PLAIN] Propensity to adverse reactions to drug 01-02-20 17 [facility] (1 source) Iodine and Iodide Containing Produc Drug allergy (disorder) 07-06-19 [facility] Rep[facility] Medications Current Medications Medication Drug Class(es) Dates Sig (Normalized) Sig (Original) acetaminophen 325 mg oral tablet (3 sources) Start: 11-07-2018 take 2 tablets by mouth every six hours as needed for pain acetaminophen (TYLENOL) 325 MG tablet Take 2 tablets by mouth every 6 hours as needed for Pain 45 tablet 0 11/07/2018 Active acetaminophen 500 mg / diphenhydrAMINE hydrochloride 12.5 mg oral tablet (2 sources) Histamine-1 Receptor Antagonist Start: 06-08-2021 take 2 tablets by mouth every six hours Percogesic Extra Strength 500 mg-12.5 mg oral tablet ; 2 tab(s) orally every 6 hours Quantity: 20 Refills: 0 Ordered: 08-Jun-2021 Deidra Mercedes Start: 08-Jun-2021 Generic Substitution Allowed Comments: May cause drowsiness or dizziness.This product contains acetaminophen. Do not use with any other product containing acetaminophen to prevent possible liver damage. Comment on above: May cause drowsiness or dizziness.This product contains acetaminophen. Do not use with any other product containing acetaminophen to prevent possible liver damage. acetaminophen 325 mg / oxyCODONE hydrochloride 10 mg oral tablet (13 sources) Opioid Agonist Start: 08-23-2023 End: 09-22-2023 oxyCODONE-acetamin ophen (PERCOCET) 10-325 mg per tablet Indications: Endometriosis Take 1 tablet by mouth every 8 (eight) hours as needed for pain for up to 30 days. Max Daily Amount: 3 tablets 20 tablet 0 08/23/2023 09/22/2023 Active Start: 05-30-2023 End: 07-25-2023 oxyCODONE-acetaminophen (PER COCET) 10-325 mg per tablet Indications: Endometriosis , Chronic pelvic pain in female Take 1 tablet by mouth every 8 (eight) hours as needed for pain. Max Daily Amount: 3 tablets 40 tablet 0 07/25/2023 Active Start: 03-16-2022 take 1 tablet by rasheeda th every six hours Oxycodone-Acetaminophen Active 10 - 325 TAB PO Q6H March 16, 2022 12:00am Start: 06-08-2021 Oxycodone-Acet aminophen Active TAB TABLET June 08, 2021 1:32pm Start: 06-08-2021 End: 03-16-2022 take 1 tablet by mouth every six hours Oxycodone-Acetaminophen Active 1 TAB PO Q6H June 08, 2021 1:32pm Start: 05-30-2021 End: 06-01-2021 take 1 tablet by mouth every six hours oxycodone-acetaminophen 5 mg-325 mg oral tablet ; 1 tab(s) orally every 6 hours x 3 days Quantity: 12 Refills: 0 Ordered: 30-May-2021 Joseph Sy Start: 30-May-2021 End: 01-Jun-2021 Status: Completed Generic Substitution Allowed Comments: Caution federal law prohibits the transfer of this drug to any person other than the person for whom it was prescribed.May cause drowsiness. Alcohol may intensify this effect. Use care when operating dangerous machinery.This prescription cannot be refilled.This product contains acetaminophen. Do not use with any other product containing acetaminophen to prevent possible liver damage.Using more of this medication than prescribed may cause serious breathing problems. Start: 03-16-2021 End: 07-06-2023 Oxycodone-Acetaminophen Disc ontinued 1 TAB PO EVERY 6-8 HOURS March 15, 2021 11:00pm July 06, 2023 7:27am Start: 06-12-2019 End: 06-12-2019 oxyCODONE-acetaminophen (PER COCET) 5-325 MG per tablet 1 tablet Comment on above: Caution federal law prohibits the transfer of this drug to any person other than the person for whom it was prescribed.May cause drowsiness. Alcohol may intensify this effect. Use care when operating dangerous machinery.This prescription cannot be refilled.This product contains acetaminophen. Do not use with any other product containing acetaminophen to prevent possible liver damage.Using more of this medication than prescribed may cause serious breathing problems. [id number] 200 actuat albuterol 0.09 mg/actuat metered dose inhaler (2 sources) beta2-Adrenergic Agonist Start: 2022 take 2 puff(s) by inhalation every four hours as needed for wheezing albuterol (PROVENTIL HFA;VENTOLIN HFA) 90 mcg/actuation inhaler Indications: Asthma, unspecified asthma severity, unspecified whether complicated, unspecified whether persistent Inhale 2 puffs every 4 (four) hours as needed for wheezing. 18 g 0 12/14/2022 Active chlordiazePOXIDE / clidinium (3 sources) Anticholinergic, Benzodiazepine Chlordiazepoxide-Cli dinium (LIBRAX PO) Indications: 5mg/2.5mg Take by mouth 3 times daily Indications: 5mg/2.5mg 0 Active cholestyramine resin 4000 mg powder for oral suspension (1 source) Bile Acid Sequestrant Start: 2021 Cholestyramine (With Sugar) Active 4 EACH PO 2 times daily March 16, 2022 12:00am empagliflozin 25 mg oral tablet (3 sources) Sodium-Glucose Cotransporter 2 Inhibitor Start: 2022 JARDIANCE 25 mg tablet tablet escitalopram 10 mg oral tablet (9 sources) Serotonin Reuptake Inhibitor Start: 2022 take 1 tablet by mouth in the morning escitalopram (LEXAPRO) 10 mg tablet Take 1 tablet (10 mg total) by mouth in the morning. 90 tablet 3 01/02/2023 Active Start: 03-16-2021 take 1 tablet by rasheeda th once daily Escitalopram Oxalate Active 1 TAB PO DAILY March 15, 2021 11:00pm Start: 01-15-2021 Escitalopram O xalate Active MG TABLET January 15, 2021 7:11pm Start: 01-15-2021 take 10 mg by mouth once daily Escitalopram Oxalate Active 10 MG PO Daily January 15, 2021 7:11pm take 1 tablet by rasheeda th once daily escitalopram (LEXAPRO) 10 MG tablet Take 10 mg by mouth daily 0 Active FREESTYLE SHAR 2 SENSOR kit (2 sources) Start: 05-27-2023 FREESTYLE SHAR 2 SENSOR kit hydroCHLOROthiazide 12.5 mg oral tablet (3 sources) Thiazide Diuretic Start: 03-16-2022 take 12.5 mg by mouth once daily Hydrochlorothiazide Active 12.5 MG PO Daily March 16, 2022 12:00am hyoscyamine sulfate 0.125 mg oral tablet (3 sources) Start: 01-17-2022 take 1 tablet by mouth every six hours as needed for pain hyoscyamine (ANASPAZ,LEVSIN) 0.125 mg tablet Take 1 tablet (0.125 mg total) by mouth every 6 (six) hours as needed for cramping. 120 tablet 5 01/17/2022 Active insulin glargine 100 unt/ml injectable solution (2 sources) Insulin Analog Start: 05-30-2023 inject 0.2 mL by subcutaneous injection in the morning insulin glargine (LANTUS) 100 unit/mL injection Inject 0.2 mL (20 Units total) under the skin in the morning. 10 mL 1 05/30/2023 Active Insulin Glargine (Lantus U-100 Insulin) 100 unit/mL solution (1 source) Start: 07-06-2023 inject 20 [IU] by subcutaneous injection once daily in the morning Insulin Glargine (Lantus U-100 Insulin) 100 unit/mL solution Active 20 UNIT SUBCUT Every Morning July 06, 2023 12:00am insulin lispro 100 unt/ml injectable solution (2 sources) Insulin Analog insulin lispro (HumaLOG) 100 unit/mL injection Inject 0.05 mL (5 Units total) under the skin in the morning and 0.05 mL (5 Units total) at noon and 0.05 mL (5 Units total) in the evening. Inject before meals. 0 Active lansoprazole 30 mg delayed release oral capsule (2 sources) Proton Pump Inhibitor Start: 12-15-2021 take 30 mg by mouth once daily Lansoprazole Active 30 MG PO Daily December 15, 2021 5:18pm lisinopril 10 mg oral tablet (9 sources) Angiotensin Converting Enzyme Inhibitor Start: 04-04-2022 take 1 tablet by mouth in the morning lisinopriL (PRINIVIL,ZESTRIL) 10 mg tablet Take 1 tablet (10 mg total) by mouth in the morning. 0 04/04/2022 Active Start: 03-16-2021 take 1 tablet by rasheeda th once daily Lisinopril Active 1 TAB PO DAILY March 15, 2021 11:00pm Start: 01-15-2021 End: 12-15-2021 Lisinopril Discontinued MG T ABLET January 15, 2021 7:11pm December 15, 2021 5:17pm take 1 tablet by rasheeda th once daily lisinopril (PRINIVIL;ZESTRIL) 10 MG tablet Take 10 mg by mouth daily 0 Active naloxone hydrochloride 40 mg/ml nasal spray (2 sources) Opioid Antagonist Start: 05-16-2022 naloxone (NARCAN) 4 mg/actuation spray,non-aerosol nasal spray Administer 1 spray (4 mg total) into alternating nostrils as needed for opioid reversal. 1 each 1 05/16/2022 Active ondansetron 8 mg disintegrating oral tablet (20 sources) Serotonin-3 Receptor Antagonist Start: 05-30-2023 take 1 tablet by mouth every twelve hours as needed for nausea and vomiting ondansetron ODT (ZOFRAN ODT) 8 mg disintegrating tablet Dissolve 1 tablet (8 mg total) on tongue every 12 (twelve) hours as needed for nausea or vomiting. 30 tablet 1 05/30/2023 Active Start: 03-16-2022 take 4 mg by mouth e very eight hours Ondansetron Active 4 MG PO Q8H March 16, 2022 12:00am Start: 12-15-2021 End: 03-16-2022 Ondansetron Hcl Discontinued 4 MG PO every 6 to 8 hours December 15, 2021 12:00am March 16, 2022 5:43am Start: 09-15-2021 End: 09-17-2021 take 1 tablet by mouth every six hours as needed ondansetron 4 mg oral tablet, disintegrating ; 1 tab(s) orally every 6 hours, As Needed Quantity: 12 Refills: 0 Ordered: 15-Sep-2021 Jennifer Hernandez Start: 15-Sep-2021 End: 17-Sep-2021 Generic Substitution Allowed Start: 09-14-2021 End: 03-16-2022 take 4 mg by mouth four times daily Ondansetron Active 4 MG PO Four times daily September 14, 2021 8:19pm Start: 06-08-2021 take 1 tablet by rasheeda th every eight hours ondansetron 4 mg oral tablet, disintegrating ; 1 tab(s) orally every 8 hours Quantity: 21 Refills: 0 Ordered: 08-Jun-2021 Deidra Mercedes Start: 08-Jun-2021 Generic Substitution Allowed Start: 06-08-2021 End: 12-15-2021 take 1 tablet by mouth once daily Ondansetron Hcl (Zofran) 4 mg tablet Discontinued 4 MG PO Daily 5 June 08, 2021 2:54pm December 15, 2021 5:17pm Start: 05-30-2021 End: 06-01-2021 take 1 tablet by mouth four times daily as needed for nausea and vomiting Zofran 4 mg oral tablet ; 1 tab(s) orally 4 times a day x 3 days, As Needed -for nausea and vomiting Quantity: 12 Refills: 0 Ordered: 30-May-2021 Joseph Sy Start: 30-May-2021 End: 01-Jun-2021 Status: Completed Generic Substitution Allowed Start: 04-09-2021 End: 04-15-2021 take 1 tablet by mouth every six hours as needed ondansetron 4 mg oral tablet, disintegrating ; 1 tab(s) orally every 6 hours, As Needed Quantity: 28 Refills: 0 Ordered: 09-Apr-2021 Mikael Morel Start: 09-Apr-2021 End: 15-Apr-2021 Status: Completed Generic Substitution Allowed Start: 01-15-2021 End: 12-15-2021 take 4 mg by mouth three times daily Ondansetron Discontinued 4 MG PO Three times daily 9 3 January 15, 2021 10:03pm December 15, 2021 5:17pm Start: 10-24-2020 End: 01-15-2021 take 4 mg by mouth every eight hours Ondansetron Discontinued 4 MG PO Q8H 9 3 October 24, 2020 3:41pm January 15, 2021 7:11pm Start: 08-20-2019 End: 08-20-2019 ondansetron (ZOFRAN) injecti on 4 mg Start: 06-12-2019 take 1 tablet by rasheeda th every eight hours as needed for nausea ondansetron (ZOFRAN ODT) 4 MG disintegrating tablet Take 1 tablet by mouth every 8 hours as needed for Nausea 20 tablet 0 06/12/2019 Active Start: 06-12-2019 End: 06-12-2019 ondansetron (ZOFRAN) injecti on 4 mg Start: 06-11-2019 End: 06-11-2019 ondansetron (ZOFRAN-ODT) disintegrating tablet 4 mg Start: 06-08-2019 End: 06-08-2019 ondansetron (ZOFRAN-ODT) disintegrating tablet 4 mg Start: 06-08-2019 End: 06-08-2019 ondansetron (ZOFRAN-ODT) disintegrating tablet 4 mg Start: 11-08-2018 take 1 tablet by rasheeda th every eight hours as needed for nausea ondansetron (ZOFRAN ODT) 4 MG disintegrating tablet Take 1 tablet by mouth every 8 hours as needed for Nausea 20 tablet 0 06/12/2019 Active polyethylene glycol 3350 44028 mg powder for oral solution (2 sources) Osmotic Laxative Start: 11-29-2021 MIRALAX 17 gram/dose powder For Prep, take 17gm BID x7days,then rest of 510gm bottle with 64oz Propel day before. 510 g 0 11/29/2021 Active microencapsulated potassium chloride 20 meq extended release oral tablet (2 sources) Start: 04-06-2022 take 1 tablet by mouth in the morning potassium chloride (KLOR-CON M 20) 20 MEQ CR tablet Take 1 tablet (20 mEq total) by mouth in the morning. 0 04/06/2022 Active 0.25 mg, 0.5 mg dose 1.5 ml semaglutide 1.34 mg/ml pen injector (3 sources) Start: 06-08-2021 Semaglutide (Ozempic) 0.25 mg or 0.5 mg(2 mg/1.5 mL) Pen Injector Active MG SUBCUT June 08, 2021 1:32pm Start: 06-08-2021 End: 03-16-2022 Semaglutide (Ozempic) 0.25 m g or 0.5 mg(2 mg/1.5 mL) Pen Injector Active 0.5 MG SUBCUT every week June 08, 2021 1:32pm 3 ml sodium chloride 9 mg/ml injection (4 sources) Start: 08-20-2019 sodium chlorid e flush 0.9 % injection 10 mL Start: 08-20-2019 End: 08-20-2019 0.9 % sodium chloride bolus Start: 06-11-2019 End: 06-11-2019 0.9 % sodium chloride bolus tiZANidine 4 mg oral tablet (10 sources) Central alpha-2 Adrenergic Agonist Start: 03-16-2021 take 1 tablet by mouth three times daily Tizanidine Active 1 TAB PO THREE TIMES A DAY March 15, 2021 11:00pm Start: 01-15-2021 Tizanidine Act eron MG TABLET January 15, 2021 7:11pm Start: 01-15-2021 End: 03-16-2022 take 4 mg by mouth three times daily Tizanidine Active 4 MG PO Three times daily March 16, 2022 12:00am Start: 11-30-2010 take 1 capsule by mo uth once daily tiZANidine (ZANAFLEX) 4 mg capsule Take 1 capsule (4 mg total) by mouth nightly. 0 11/30/2010 Active take 1 tablet by rasheeda th three times daily tiZANidine (ZANAFLEX) 4 MG tablet Take 4 mg by mouth 3 times daily 0 Active valACYclovir 500 mg oral tablet (4 sources) Herpesvirus Nucleoside Analog DNA Polymerase Inhibitor, Herpes Simplex Virus Nucleoside Analog DNA Polymerase Inhibitor, Herpes Zoster Virus Nucleoside Analog DNA Polymerase Inhibitor Start: 03-16-2022 take 500 mg by mouth once daily in the morning Valacyclovir Active 500 MG PO Every morning March 16, 2022 12:00am Start: 01-15-2021 End: 06-08-2021 Valacyclovir Discontinued MG TABLET January 15, 2021 7:11pm June 08, 2021 1:35pm Completed/Discontinued Medications Medication Drug Class(es) Dates Sig (Normalized) Sig (Original) acetaminophen 325 mg / HYDROcodone bitartrate 5 mg oral tablet (3 sources) Opioid Agonist Start: 09-14-2021 End: 12-15-2021 take 1 tablet by mouth every six hours Hydrocodone-Acetam inophen Discontinued 1 TAB PO Q6H 12 3 September 14, 2021 8:18pm December 15, 2021 5:17pm dicyclomine hydrochloride 20 mg oral tablet (13 sources) Anticholinergic Start: 09-15-2021 End: 09-17-2021 take 1 tablet by mouth four times daily Bentyl 20 mg oral tablet ; 1 tab(s) orally 4 times a day, As Needed Quantity: 12 Refills: 0 Ordered: 15-Sep-2021 Jennifer Hernandez Start: 15-Sep-2021 End: 17-Sep-2021 Generic Substitution Allowed Comments: May cause drowsiness. Alcohol may intensify this effect. Use care when operating dangerous machinery. Start: 06-08-2021 take 1 tablet by rasheeda th every six hours dicyclomine 20 mg oral tablet ; 1 tab(s) orally every 6 hours as needed for abdominal pain Quantity: 20 Refills: 0 Ordered: 08-Jun-2021 Deidra Mercedes Start: 08-Jun-2021 Generic Substitution Allowed Comments: May cause drowsiness. Alcohol may intensify this effect. Use care when operating dangerous machinery. Start: 04-09-2021 End: 04-15-2021 take 1 tablet by mouth four times daily Bentyl 20 mg oral tablet ; 1 tab(s) orally 4 times a day Quantity: 28 Refills: 0 Ordered: 09-Apr-2021 Mikael Morel Start: 09-Apr-2021 End: 15-Apr-2021 Status: Other Generic Substitution Allowed Comments: May cause drowsiness. Alcohol may intensify this effect. Use care when operating dangerous machinery. Start: 01-15-2021 End: 06-08-2021 take 10 mg by mouth three times daily Dicyclomine Discontinued 10 MG PO Three times daily January 15, 2021 10:03pm June 08, 2021 1:35pm Start: 11-07-2018 take 1 capsule by mo uth every six hours as needed dicyclomine (BENTYL) 10 MG capsule Take 1 capsule by mouth every 6 hours as needed (cramps) 20 capsule 0 11/07/2018 Active Comment on above: May cause drowsiness . Alcohol may intensify this effect. Use care when operating dangerous machinery. 1 ml diphenhydrAMINE hydrochloride 50 mg/ml cartridge (3 sources) Histamine-1 Receptor Antagonist Start: 08-20-2019 End: 08-20-2019 diphenhydrAMINE (BENADRYL) injection 50 mg Start: 06-12-2019 End: 06-12-2019 diphenhydrAMINE (BENADRYL) i njection 12.5 mg Start: 06-11-2019 End: 06-11-2019 diphenhydrAMINE (BENADRYL) i njection 12.5 mg glipiZIDE er 2.5 mg 24 hr extended release oral tablet (3 sources) Sulfonylurea Start: 01-15-2021 End: 06-08-2021 Glipizide Discontinued MG PO January 15, 2021 7:11pm June 08, 2021 1:35pm iopamidol (ISOVUE-370) 76 % injection 75 mL (1 source) Start: 08-20-2019 End: 08-20-2019 iopamidol (ISOVUE-370) 76 % injection 75 mL LORazepam 0.5 mg oral tablet (3 sources) Benzodiazepine Start: 01-15-2021 End: 06-08-2021 Lorazepam Discontinued MG TABLET January 15, 2021 7:11pm June 08, 2021 1:35pm mesalamine 800 mg delayed release oral tablet (4 sources) Aminosalicylate Start: 03-16-2021 End: 07-06-2023 take 800 mg by mouth twice daily Mesalamine Discontinued 800 MG PO TWICE A DAY March 15, 2021 11:00pm July 06, 2023 7:27am take 1 tablet by mouth three issa es daily mesalamine (DELZICOL) 800 MG TBEC TBEC tablet Take 800 mg by mouth 3 times daily 0 Active methylPREDNISolone 4 mg oral tablet (4 sources) Corticosteroid Start: 09-14-2021 End: 12-15-2021 take 1 tablet by mouth once Methylprednisolone (Medrol (Chip)) 4 mg tablets,dose pack Discontinued 0 PO .COMPLEX September 14, 2021 8:18pm December 15, 2021 5:17pm orally per package directions Start: 08-20-2019 End: 08-20-2019 methylPREDNISolone sodium (S GERRY-MEDROL) injection 40 mg 1 ml morphine sulfate 4 mg/ml injection (4 sources) Opioid Agonist Start: 08-20-2019 End: 08-20-2019 morphine sulfate (PF) injection 4 mg Start: 06-11-2019 End: 06-11-2019 morphine injection 4 mg Start: 06-08-2019 End: 06-08-2019 morphine injection 5 mg Start: 06-08-2019 End: 06-08-2019 morphine injection 5 mg pantoprazole (1 source) Proton Pump Inhibitor Start: 03-16-2021 End: 07-06-2023 take 1 tablet by mouth once daily Pantoprazole Discontinued 1 TAB PO DAILY March 15, 2021 11:00pm July 06, 2023 7:27am predniSONE 20 mg oral tablet (9 sources) Start: 04-09-2021 End: 04-13-2021 take 1 tablet by mouth three times daily at mealtime predniSONE 20 mg oral tablet ; 1 tab(s) orally 3 times a day Quantity: 15 Refills: 0 Ordered: 09-Apr-2021 Mikael Morel Start: 09-Apr-2021 End: 13-Apr-2021 Status: Completed Generic Substitution Allowed Comments: It is very important that you take or use this exactly as directed. Do not skip doses or discontinue unless directed by your doctor.Obtain medical advice before taking any non-prescription drugs as some may affect the action of this medication.Take with food or milk. Start: 03-16-2021 take 20 mg by mouth twice eliel y Prednisone Active 20 MG PO TWICE A DAY March 15, 2021 11:00pm Start: 11-04-2020 End: 03-16-2021 Prednisone Discontinued 20 M G PO TWICE A DAY November 03, 2020 11:00pm March 16, 2021 6:03am 20 mg 3x/day x3 days, then 20 mg 2x/d x3 days, then 20 mg/d x3 days, then 1/2 (10 mg) daily x3 days Start: 06-08-2019 End: 06-18-2019 take 4 tablets by mouth once daily predniSONE (DELTASONE) 10 MG tablet Take 4 tablets by mouth once daily for 5 days 20 tablet 0 06/08/2019 06/18/2019 Active Start: 06-08-2019 End: 06-08-2019 predniSONE (DELTASONE) table t 40 mg Comment on above: It is very important that you take or use this exactly as directed. Do not skip doses or discontinue unless directed by your doctor.Obtain medical advice before taking any non-prescription drugs as some may affect the action of this medication.Take with food or milk. sulfamethoxazole 800 mg / trimethoprim 160 mg oral tablet (6 sources) Dihydrofolate Reductase Inhibitor Antibacterial, Sulfonamide Antimicrobial Start: 06-08-2021 End: 12-15-2021 Sulfamethoxazole-Trim ethoprim Discontinued TAB TABLET June 08, 2021 1:32pm December 15, 2021 5:18pm Start: 05-30-2021 End: 06-12-2021 take 1 tablet by mouth twice daily Bactrim DS 800 mg-160 mg oral tablet ; 1 tab(s) orally 2 times a day x 14 days Quantity: 28 Refills: 0 Ordered: 30-May-2021 Joseph Sy Start: 30-May-2021 End: 12-Jun-2021 Generic Substitution Allowed Comments: Avoid prolonged or excessive exposure to direct and/or artificial sunlight while taking this medication.Finish all this medication unless otherwise directed by prescriber.Medication should be taken with plenty of water. Comment on above: Avoid prolonged or e xcessive exposure to direct and/or artificial sunlight while taking this medication.Finish all this medication unless otherwise directed by prescriber.Medication should be taken with plenty of water. traMADol hydrochloride 50 mg oral tablet (5 sources) Opioid Agonist Start: 2022 End: 2023 take 1 tablet by mouth every eight hours as needed for pain traMADoL (ULTRAM) 50 mg tablet Indications: Endometriosis , Pelvic pain , Well female exam with routine gynecological exam , Visit for screening mammogram Take 1 tablet (50 mg total) by mouth every 8 (eight) hours as needed for pain. 30 tablet 0 09/12/2022 07/25/2023 Discontinued Start: 03-16-2022 End: 03-16-2022 Tramadol Discontinued MG TAB LET March 16, 2022 12:00am March 16, 2022 6:10am Start: 01-15-2021 End: 06-08-2021 Tramadol Discontinued MG TAB LET January 15, 2021 7:11pm June 08, 2021 1:35pm traZODone hydrochloride 150 mg oral tablet (10 sources) Serotonin Reuptake Inhibitor Start: 03-16-2022 End: 03-16-2022 Trazodone Discontinued MG TABLET March 16, 2022 12:00am March 16, 2022 6:10am Start: 03-16-2021 take 1 tablet by rasheeda th once daily Trazodone Active 1 TAB PO DAILY March 15, 2021 11:00pm Start: 01-15-2021 Trazodone Acti ve MG TABLET January 15, 2021 7:11pm Start: 11-11-2019 take 1 tablet by rasheeda th once daily traZODone (DESYREL) 150 mg tablet Take 150 mg by mouth daily. 0 11/11/2019 Active take 1 tablet by rasheeda th once daily traZODone (DESYREL) 150 MG tablet Take 150 mg by mouth nightly 0 Active Problems Active Problems Problem Classification Problem Date Documented Da te Episodic/Chronic Abdominal pain (20 sources) Abdominal pain; Translations: [Periumbilical pain] Onset: 8 Resolved: 1 11-07-2018 Episodic Comment on above: ABD PAIN Asthma (2 sources) Asthma; Translations: [Unspecified asthma, uncomplicated] Onset: 2 12-26-2021 Chronic Endometriosis (6 sources) Endometriosis (clinical); Translations: [Endometriosis, unspecified] Onset: 2 07-25-2023 Chronic Esophageal disorders (2 sources) Gastroesophageal reflux disease; Translations: [Gastro-esophageal reflux disease without esophagitis] Onset: 2 11-29-2021 Chronic Fluid and electrolyte disorders (3 sources) Absolute hypovolemia; Translations: [Hypovolemia] 06-08-2021 Episodic Menstrual disorders (2 sources) Dysmenorrhea; Translations: [Dysmenorrhea, unspecified] Onset: 4 07-25-2023 Chronic Other aftercare (1 source) 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; Translations: [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 THERAPY] Onset: 2 Episodic Other aftercare (1 source) Admission statuses; Translations: [director long term care (current) use of opiate analgesic] 07-25-2023 Episodic Other aftercare (1 source) director long term care (current) use of opiate analgesic; Translations: [director long term care (current) use of opiate analgesic] Onset: 4 Episodic Other gastrointestinal disorders (2 sources) Irritable bowel syndrome with diarrhea; Translations: [Irritable bowel syndrome with diarrhea] Onset: 1 11-29-2021 Chronic Other gastrointestinal disorders (1 source) History of Crohns disease; Translations: [Personal history of unspecified digestive disease] 05-30-2021 Episodic Other gastrointestinal disorders (3 sources) Diarrhea; Translations: [Diarrhea, unspecified] 06-08-2021 Episodic Other nervous system disorders (1 source) Other chronic pain; Translations: [Other chronic pain] Onset: 4 Chronic Other nutritional; endocrine; and metabolic disorders (2 sources) Obesity; Translations: [Obesity, unspecified] Onset: 2 12-26-2021 Chronic Peritonitis and intestinal abscess (1 source) Abdominal abscess; Translations: [Peritoneal abscess] 05-30-2021 Episodic Regional enteritis and ulcerative colitis (7 sources) Crohn's disease; Translations: [Crohn's disease, unspecified, without complications] Onset: 2 03-16-2022 Chronic Residual codes; unclassified (1 source) Acquired absence of other specified parts of digestive tract; Translations: [ACQ ABSENCE OTH PART DIGESTV TRACT] Onset: 2 Episodic Spondylosis; intervertebral disc disorders; other back problems (4 sources) Inflammation of sacroiliac joint; Translations: [Sacroiliitis, not elsewhere classified] Onset: 4 07-25-2023 Chronic Unclassified (1 source) Right lower quadrant abdominal abscess 05-30-2021 Unclassified (1 source) History of Crohn's disease 05-30-2021 Unclassified (2 sources) ABD PAIN W NAUSEA VOMITING 06-08-2021 Comment on above: ABD PAIN W NAUSEA VO MITING Unclassified (1 source) R10.9 - Unspecified abdominal pain; Translations: [R10.9 - Unspecified abdominal pain] Onset: 2 Unclassified (1 source) Polycystic Ovary Syndrome Onset: 4 Past or Other Problems Problem Classification Problem Date Documented Da te Episodic/Chronic Administrative/social admission (4 sources) Follow-up status; Translations: [Person consulting for explanation of examination or test findings] Onset: 01-25-2022 Resolved: 02-03-2022 01-25-2022 Episodic Calculus of urinary tract (2 sources) Kidney stone; Translations: [Calculus of kidney] Onset: 12-27-2021 12-27-2021 Episodic Contraceptive and procreative management (5 sources) Patient encounter status; Translations: [Encounter for other general counseling and advice on contraception] Onset: 03-27-2017 Resolved: 10-06-2020 10-06-2020 Episodic Deficiency and other anemia (2 sources) Anemia; Translations: [Anemia, unspecified] Onset: 12-27-2021 12-27-2021 Episodic Hemorrhoids (2 sources) Hemorrhoids; Translations: [Unspecified hemorrhoids] Onset: 12-27-2021 12-27-2021 Episodic Nausea and vomiting (14 sources) Nausea, vomiting and diarrhea; Translations: [Nausea and vomiting] Onset: 04-12-2021 05-30-2021 Episodic Comment on above: NAUSEA VOMITING AND DIARRHEA VOMITING Nonspecific chest pain (2 sources) Chest pain; Translations: [Chest pain, unspecified] Onset: 12-27-2021 12-27-2021 Episodic Other gastrointestinal disorders (1 source) Diarrhea, unspecified; Translations: [DIARRHEA UNSPECIFIED] Onset: 04-12-2021 Episodic Other screening for suspected conditions (not mental disorders or infectious disease) (3 sources) Thallium stress test abnormal; Translations: [Abnormal result of other cardiovascular function study] Onset: 12-27-2021 12-27-2021 Episodic Residual codes; unclassified (2 sources) Family history of cancer of colon; Translations: [Family history of malignant neoplasm of digestive organs] Onset: 11-24-2021 11-29-2021 Episodic Unclassified (1 source) N/V/D ABD PAIN 05-30-2021 Comment on above: N/V/D ABD PAIN Unclassified (1 source) ABD PAIN WITH N/V/D 06-08-2021 Comment on above: ABD PAIN WITH N/V/D Unclassified (2 sources) Onset: 04-04-2023 04-04-2023 Urinary tract infections (2 sources) Urinary tract infectious disease; Translations: [Urinary tract infection, site not specified] Onset: 12-27-2021 12-27-2021 Episodic Results Test Name Value Interpretation Reference Range Facility BASIC METABOLIC PANLon 07-16 Anion gap [Moles/Vol] 8 mmol/L Normal 5-15 [facility] Comment on above: Performed By: #### C BCA, BMP, , 24073-4 #### [facility] ([id number]) [address] [place] [address] Calcium [Mass/Vol] 9.1 mg/dL Normal 8.5-10.5 [facility] Comment on above: Performed By: #### C BCA, BMP, , 34743-4 #### [facility] ([id number]) [address] [place] [address] Chloride [Moles/Vol] 102 mmol/L Normal 98-109 [facility] Comment on above: Performed By: #### C BCA, BMP, , 55837-0 #### [facility] ([id number]) [address] [place] [address] CO2 [Moles/Vol] 31 mmol/L Normal 22-32 [facility] Comment on above: Performed By: #### C BCA, BMP, , 77670-1 #### [facility] ([id number]) [address] [place] [address] Creatinine [Mass/Vol] 0.84 mg/dL Normal 0.40-1.00 [facility] Comment on above: Result Comment: METH OD TRACEABLE TO IDMS STANDARD Performed By: #### C CHARMAINE BMP, , #### [facility] ([id number]) [address] [place] [address] GFR/1.73 sq M.predicted among non-blacks MDRD (S/P/Bld) [Vol rate/Area] 87 mL/min/{1.73_m2} Normal >59 [facility] Comment on above: Result Comment: Reported eGFR is based on the CKD-EPI 2020 equation that does not use a race coefficient. Performed By: #### C CIRS MONTANO, , #### [facility] ([id number]) [address] [place] [address] Glucose [Mass/Vol] 168 mg/dL High 65-99 [facility] Comment on above: Performed By: #### C CRIS MONTANO, , #### [facility] ([id number]) [address] [place] [address] Potassium [Moles/Vol] 4.0 mmol/L Normal 3.5-5.0 [facility] Comment on above: Performed By: #### C CHARMAINE, BMP, , #### [facility] ([id number]) [address] [place] [address] Sodium [Moles/Vol] 141 mmol/L Normal 134-146 [facility] Comment on above: Performed By: #### C CHARMAINE, BMP, , #### [facility] ([id number]) [address] [place] [address] Urea nitrogen [Mass/Vol] 18 mg/dL Normal 5-23 [facility] Comment on above: Performed By: #### C BCA, BMP, , #### [facility] ([id number]) [address] [place] [address] CBC AND AUTO DIFFon 07-16-19 ABSOLUTE BASOPHIL 0.0 X10E9/L Normal 0.0-0.2 [facility] Comment on above: Performed By: #### C BCA, BMP, , #### [facility] ([id number]) [address] [place] [address] ABSOLUTE NEUTROPHIL 6.9 X10E9/L High 1.5-6.6 [facility] Comment on above: Performed By: #### C BCA, BMP, , #### [facility] ([id number]) [address] [place] [address] Basophils/100 WBC (Bld) 0.4 % Normal [facility] Comment on above: Performed By: #### C BCA, BMP, , #### [facility] ([id number]) [address] [place] [address] Eosinophils (Bld) [#/Vol] 0.0 10*3/uL Normal 0.0-0.4 [facility] Comment on above: Performed By: #### C BCA, BMP, , 72529-4 #### [facility] ([id number]) [address] [place] [address] Eosinophils/100 WBC (Bld) 0.5 % Normal [facility] Comment on above: Performed By: #### C BCA, BMP, , 79957-4 #### [facility] ([id number]) [address] [place] [address] Erythrocyte distribution width (RBC) [Ratio] 14.7 % Normal 11.5-15.0 [facility] Comment on above: Performed By: #### C CRIS MONTANO, , #### [facility] ([id number]) [address] [place] [address] Hematocrit (Bld) [Volume fraction] 38.5 % Normal 35-47 [facility] Comment on above: Performed By: #### C CHARMAINE, BMP, , #### [facility] ([id number]) [address] [place] [address] Hemoglobin (Bld) [Mass/Vol] 12.6 g/dL Normal 11.7-15.5 [facility] Comment on above: Performed By: #### C CHARMAINE, BMP, , #### [facility] ([id number]) [address] [place] [address] Lymphocytes (Bld) [#/Vol] 2.2 10*3/uL Normal 1.0-3.5 [facility] Comment on above: Performed By: #### C CHARMAINE, BMP, , 47564-1 #### [facility] ([id number]) [address] [place] [address] Lymphocytes/100 WBC (Bld) 21.7 % Normal [facility] Comment on above: Performed By: #### C CHARMAINE, BMP, , #### [facility] ([id number]) [address] [place] [address] MCH (RBC) [Entitic mass] 27.9 pg Normal 27-34 [facility] Comment on above: Performed By: #### C CHARMAINE, BMP, , 01071-6 #### [facility] ([id number]) [address] [place] [address] MCHC (RBC) [Mass/Vol] 32.6 g/dL Normal 32-36 [facility] Comment on above: Performed By: #### C CHARMAINE, BMP, , #### [facility] ([id number]) [address] [place] [address] MCV (RBC) [Entitic vol] 85 fL Normal 80-100 P [facility] Comment on above: Performed By: #### C BCA, BMP, , #### [facility] ([id number]) [address] [place] [address] Monocytes (Bld) [#/Vol] 0.8 10*3/uL Normal 0-0.9 [facility] Comment on above: Performed By: #### C BCA, BMP, , #### [facility] ([id number]) [address] [place] [address] Monocytes/100 WBC (Bld) 7.8 % Normal [facility] Comment on above: Performed By: #### C BCA, BMP, , #### [facility] ([id number]) [address] [place] [address] Neutrophils/100 WBC (Bld) 69.6 % Normal [facility] Comment on above: Performed By: #### C BCA, BMP, , #### [facility] ([id number]) [address] [place] [address] Platelet mean volume (Bld) [Entitic vol] 7.4 fL Normal 7-12 [facility] Comment on above: Performed By: #### C BCA, BMP, , 83131-8 #### [facility] ([id number]) [address] [place] [address] Platelets (Bld) [#/Vol] 258 10*3/uL Normal 150-450 [facility] Comment on above: Performed By: #### C BCA, BMP, , 62524-1 #### [facility] ([id number]) [address] [place] [address] RBC COUNT 4.51 X10E12/L Normal 3.80-5.20 [facility] Comment on above: Performed By: #### C BCA, BMP, , 20063-8 #### [facility] ([id number]) [address] [place] [address] WBC (Bld) [#/Vol] 10.0 10*3/uL Normal 4.0-11.0 [facility] Comment on above: Performed By: #### C CHARMAINE, BMP, , #### [facility] ([id number]) [address] [place] [address] CT ABDOMEN AND PELVIS WO CON Ton 07-16-2023 CT ABDOMEN AND PELVIS WO CONT CT ABDOMEN AND PELVIS WO CONT CLINICAL INFORMATION: r flank pain. TECHNIQUE: CT Abdomen and Pelvis without intravenous contrast. All CT scans at this facility use dose modulation, iterative reconstruction, and/or weight based dosing when appropriate to reduce radiation dose to as low as reasonably achievable. COMPARISON: 10/22/2022. FINDINGS: Lung bases appear clear. There is no pneumoperitoneum. There is some minimal pneumobilia within nondilated left-sided bile ducts. This is nonspecific and usually reflects sequelae of prior biliary intervention such as sphincterotomy. Patient is status post cholecystectomy. There is mild hepatic steatosis. No focal liver lesions. The spleen, adrenal glands and pancreas appear unremarkable. Abdominal aorta is not aneurysmal. No retroperitoneal nor mesenteric lymphadenopathy. Bilateral nonobstructing intrarenal calculi are again noted. Largest calculus on the right side measures 4 mm and largest calculus on the left side measures 5 mm. There are no ureteral calculi. Renal collecting systems and ureters are not dilated. No perinephric soft tissue stranding. No dilated bowel loops. Patient is status post appendectomy. No ascites. No pelvic mass, fluid collection, nor lymphadenopathy. No acute fracture. No destructive bone lesion. IMPRESSION: 1. Bilateral nonobstructing intrarenal calculi. No ureteral calculi nor findings of obstructive uropathy. 2. Mild hepatic steatosis. Finalized by Deidra Powers MD on 07/16/2023 1:12 AM Normal [facility] HCG ( test) Ql (U)o n 07-16-2023 Beta HCG ( test) Ql (U) Negative Normal NEG [facility] Comment on above: Performed By: #### 2 106-3 #### [facility] ([id number]) [address] [place] [address] MAGNESIUMon 07-16-2023 Magnesium [Mass/Vol] 2.0 mg/dL Normal 1.8-2.6 [facility] Comment on above: Performed By: #### C BCA, BMP, , 71363-2 #### [facility] ([id number]) [address] [place] [address] TROPONIN Ion 07-16-2023 Troponin I.cardiac [Mass/Vol] ng/mL Normal 0.00-0.04 [facility] Comment on above: Performed By: #### C BCA, BMP, 75284-5, 05494-5 #### [facility] ([id number]) [address] [place] [address]267 URINALYSISon 07-16-2023 Bilirubin Ql (U) Negative Normal NEG [facility] Comment on above: Performed By: #### U A #### [facility] ([id number]) [address] [place] [address] BLOOD/HGB SMALL Abnormal NEG [facility] Comment on above: Performed By: #### U A #### [facility] ([id number]) [address] [place] [address] Color (U) YELLOW Normal YELLOW [facility] Comment on above: Performed By: #### U A #### [facility] ([id number]) [address] [place] [address] Glucose Ql (U) >1000 Abnormal NEG [facility] Comment on above: Performed By: #### U A #### [facility] ([id number]) [address] [place] [address]13 Ketones Ql (U) Negative Normal NEG [facility] Comment on above: Performed By: #### U A #### [facility] ([id number]) [address] [place] [address]5699 Leukocyte esterase Test strip Ql (U) Negative Normal NEG [facility] Comment on above: Result Comment: HIGH CONCENTRATIONS OF GLUCOSE MAY DECREASE THE REACTIVITY OF THE DIPSTICK LEUKOCYTE TEST PAD. Performed By: #### U A #### [facility] ([id number]) [address] [place] [address] 21100 Nitrite Ql (U) Negative Normal NEG [facility] Comment on above: Performed By: #### U A #### [facility] ([id number]) [address] [place] [address]1366 pH (U) 6.0 [pH] Normal 5.0-8.5 [facility] Comment on above: Performed By: #### U A #### [facility] ([id number]) [address] [place] [address]6935 Protein Ql (U) Negative Normal NEG [facility] Comment on above: Performed By: #### U A #### [facility] ([id number]) [address] [place] [address]6474 R.B.CELLS 2 /hpf Normal 0-5 [facility] Comment on above: Performed By: #### U A #### [facility] ([id number]) [address] [place] [address] Specific gravity (U) [Rel density] 1.010 Normal 1.003-1.035 [facility] Comment on above: Performed By: #### U A #### [facility] ([id number]) [address] [place] [address] SQUAMOUS EPITHELIUM 5 /hpf Normal 0-5 [facility] Comment on above: Performed By: #### U A #### [facility] ([id number]) [address] [place] [address] TURBIDITY CLEAR Normal CLEAR [facility] Comment on above: Performed By: #### U A #### [facility] ([id number]) [address] [place] [address]6932 Urobilinogen Qn (U) 0.2 {Gianni'U}/dL Normal <1.1 [facility] Comment on above: Performed By: #### U A #### [facility] ([id number]) [address] [place] [address]706 W.B.CELLS 0 /hpf Normal 0-5 [facility] Comment on above: Performed By: #### U A #### [facility] ([id number]) [address] [place] [address] 34292 URN MACROSCOPIC NURon 2023 BILIRUBIN AGUILAR Negative Normal NEG [facility] Comment on above: Performed By: #### N UM #### [facility] ([id number]) [address] [place] [address]85 BLOOD/HGB AGUILAR Small Abnormal NEG [facility] Comment on above: Performed By: #### N UM #### [facility] ([id number]) [address] [place] [address] 76819 GLUCOSE AGUILAR 500 mg/dL Abnormal NEG [facility] Comment on above: Performed By: #### N UM #### [facility] ([id number]) [address] [place] [address] KETONES AGUILAR Negative Normal NEG [facility] Comment on above: Performed By: #### N UM #### [facility] ([id number]) [address] [place] [address] LEUKOCYTE ESTERASE AGUILAR Negative Normal NEG [facility] Comment on above: Performed By: #### N UM #### [facility] ([id number]) [address] [place] [address] NITRITE AGUILAR Negative Normal NEG [facility] Comment on above: Performed By: #### N UM #### [facility] ([id number]) [address] [place] [address] PH AGUILAR 5.5 Normal 5.0-8.5 [facility] Comment on above: Performed By: #### N UM #### [facility] ([id number]) [address] [place] [address] PROTEIN AGUILAR Negative Normal NEG [facility] Comment on above: Performed By: #### N UM #### [facility] ([id number]) [address] [place] [address] SPECIFIC GRAVITY AGUILAR 1.015 Normal 1.003-1.035 [facility] Comment on above: Performed By: #### N UM #### [facility] ([id number]) [address] [place] [address] UROBILINOGEN AGUILAR 0.2 eu/dL Normal <1.1 [facility] Comment on above: Performed By: #### N UM #### [facility] ([id number]) [address] [place] [address] 29075 Absolute lymphocyte countOrd ered By: Srinath Noriega on 07-06-2023 Lymphocytes Auto (Unsp spec) [#/Vol] 2.701 10*3/uL 1.0-5.5 [facility] Alkaline phosphatase measure mentOrdered By: Srinath Meka on 07-06-2023 ALP (S/P/Bld) [Catalytic activity/Vol] 80 units/L 38-126 [facility] Basophils Auto (Bld) [#/Vol] Ordered By: Srinath Meka on 07-06-2023 Basophils (Bld) [#/Vol] 0.0674 10*3/uL 0.0-0.3 [facility] Basophils/100 WBC Auto (Bld) Ordered By: Srinath Noriega on 07-06-2023 Basophils/100 WBC (Bld) 0.5669 % 0.0-3.[address] [facility] Complete Blood Count Auto Di ffon 07-06-2023 Basophils Absolute Auto 0.0674 Normal 0.0-0.[address] [facility] Comment on above: Performed By: #### C MP, CBC #### [address] [address] Basophils Percent Auto 0.5669 Normal 0.0-3.0 He [facility] Acute Comment on above: Performed By: #### C MP, CBC #### [facility] [address] [place], [place] [address] Eosinophils Absolute Auto 0.0519 Normal 0.0-1.1 [facility] Acute Comment on above: Performed By: #### C MP, CBC #### [facility] [address] [place], [place] [address] Eosinophils Percent Auto 0.4361 Normal 0.0-10.0 [facility] Acute Comment on above: Performed By: #### C MP, CBC #### [facility] [address] [place], [place] [address] Erythrocyte distribution width (RBC) [Ratio] 13.6 % Normal 8.5-15.5 [facility] Acute Comment on above: Performed By: #### C MP, CBC #### [facility] [address] [place], [place] [address] Hematocrit (Bld) [Volume fraction] 43.9 % Normal 37.0-47.0 [facility] Acute Comment on above: Performed By: #### C MP, CBC #### [address] [address] Hemoglobin (Bld) [Mass/Vol] 13.4 g/dL Normal 12.0-16.0 [facility] Acute Comment on above: Performed By: #### C MP, CBC #### [address] [address] Lymphocytes Absolute Auto 2.701 Normal 1.0-5.5 [facility] Acute Comment on above: Performed By: #### C MP, CBC #### [address] [address] Lymphocytes Percent Auto 22.71 Normal 20-51.1 [facility] Acute Comment on above: Performed By: #### C MP, CBC #### [address] [address] MCH (RBC) [Entitic mass] 26.9 pg Low 28.5-32.5 [facility] Acute Comment on above: Performed By: #### C MP, CBC #### [address] [address] MCV (RBC) [Entitic vol] 87.8 fL Normal 80.0-94.[address] [facility] Comment on above: Performed By: #### C MP, CBC #### [address] [address] Mean Corpuscular HGB Conc 30.6 g/dL Low 32.0-37.0 [facility] Acute Comment on above: Performed By: #### C MP, CBC #### [address] [address] Monocytes Absolute Auto 0.3747 Normal 0.1-1.[address] [facility] Comment on above: Performed By: #### C MP, CBC #### [address] [address] Monocytes Percent Auto 3.151 Normal 1.7-9.3 He [facility] Acute Comment on above: Performed By: #### C MP, CBC #### [address] [address] Neutrophils Absolute Auto 8.699 High 2.0-8.1 [facility] Acute Comment on above: Performed By: #### C MP, CBC #### [address] [address] Neutrophils Percent Auto 73.14 Normal 42.2-75.2 [facility] Acute Comment on above: Performed By: #### C MP, CBC #### [address] [address] Platelet Count 364.8 Thou/mm3 Normal 130-400 [facility] Acute Comment on above: Performed By: #### C MP, CBC #### [address] [address] RBC (Bld) [#/Vol] 5.00 10*6/uL Normal 4.20-5.40 [facility] Acute Comment on above: Performed By: #### C MP, CBC #### [address] [address] White Blood Count 11.9 Thou/mL3 High 4.8-10.8 [facility] Acute Comment on above: Performed By: #### C MP, CBC #### [address] [address] Comprehensive Metabolic Pane johan 07-06-2023 Alanine Aminotransferase V 38 units/L High 4-35 [facility] Acute Comment on above: Performed By: #### C MP, CBC #### [address] [address] Albumin [Mass/Vol] 4.1 g/dL Normal 3.5-5.0 [facility] Acute Comment on above: Performed By: #### C MP, CBC #### [address] [address] Albumin Globulin Ratio 1.3 g/dL Normal [facility] Acute Comment on above: Performed By: #### C MP, CBC #### [address] [address] Alkaline Phosphatase 80 units/L Normal 38-126 [facility] Acute Comment on above: Performed By: #### C MP, CBC #### [address] [address] Anion gap [Moles/Vol] 4.5 mmol/L Low 12-16 [facility] Acute Comment on above: Performed By: #### C MP, CBC #### [address] [address] Aspartate Amino Transferase 28 units/L Normal 14-36 [facility] Acute Comment on above: Performed By: #### C MP, CBC #### [address] [address] Bilirubin [Mass/Vol] 0.8 mg/dL Normal 0.2-1.3 [facility] Acute Comment on above: Performed By: #### C MP, CBC #### [address] [address] Calcium [Mass/Vol] 9.3 mg/dL Normal 8.4-10.2 [facility] Acute Comment on above: Performed By: #### C MP, CBC #### [address] [address] Chloride [Moles/Vol] 102 mmol/L Normal 98-120 [facility] Acute Comment on above: Performed By: #### C MP, CBC #### [address] [address] CO2 [Moles/Vol] 29 mmol/L Normal 22-31 [facility] Acute Comment on above: Performed By: #### C MP, CBC #### [address] [address] Creatinine [Mass/Vol] 1.1 mg/dL High 0.5-1.0 [facility] Acute Comment on above: Performed By: #### C MP, CBC #### [address] [address] Globulin (S) [Mass/Vol] 3.0 g/dL Normal [facility] Comment on above: Performed By: #### C MP, CBC #### [address] [address] Glomerular Filtration Rate 56.8 Normal [facility] Acute Comment on above: Performed By: #### C MP, CBC #### [address] [address] Glucose [Mass/Vol] 316 mg/dL High 65-105 [facility] Acute Comment on above: Performed By: #### C MP, CBC #### [address] [address] Potassium [Moles/Vol] 3.6 mmol/L Normal 3.6-5.0 [facility] Acute Comment on above: Performed By: #### C MP, CBC #### [facility] [address] [place], [place] [address] Protein [Mass/Vol] 7.1 g/dL Normal 6.3-8.2 [facility] Acute Comment on above: Performed By: #### C MP, CBC #### [facility] [address] [place], [place] [address] Sodium [Moles/Vol] 136 mmol/L Normal 135-145 [facility] Acute Comment on above: Performed By: #### C MP, CBC #### [facility] [address] [place], [place] [address] Urea nitrogen [Mass/Vol] 20 mg/dL High 01-01 [facility] Acute Comment on above: Performed By: #### C MP, CBC #### [facility] [address] [place], [place] [address] Eosinophils Auto (Bld) [#/Vo l]Ordered By: Srinath Noriega on 07-06-2023 Eosinophils (Bld) [#/Vol] 0.0519 10*3/uL 0.0-1.1 [facility] Eosinophils/100 WBC Auto (Bl d)Ordered By: Srinath Noriega on 07-06-2023 Eosinophils/100 WBC (Bld) 0.4361 % 0.0-10.0 [facility] Laboratory - Chemistry and C hemistry - challengeOrdered By: Srinath Noriega on 07-06-2023 Anion gap [Moles/Vol] 4.5 mmol/L Low 12-16 [facility] Calcium [Mass/Vol] 9.3 mg/dL 8.4-10.2 [facility] CO2 [Moles/Vol] 29 mmol/L - [facility] Globulin (S) [Mass/Vol] 3.0 g/dL [facility] Urea nitrogen [Mass/Vol] 20 mg/dL High 01-01 [facility] Laboratory - Hematology and Cell countsOrdered By: Srinath Noriega on 07-06-2023 Erythrocyte distribution width (RBC) [Ratio] 13.6 % 8.5-15.5 [facility] Hematocrit (Bld) [Volume fraction] 43.9 % 37.0-47.0 [facility] MCH (RBC) [Entitic mass] 26.9 pg Low 28.5-32.5 [facility] MCHC (RBC) [Mass/Vol] 30.6 g/dL Low 32.0-37.0 [facility] Neutrophils (Bld) [#/Vol] 8.699 10*3/uL High 2.0-8.1 [facility] RBC (Bld) [#/Vol] 5.00 10*6/uL 4.20-5.40 [facility] MCV (mean corpuscular volume ) determinationOrdered By: Srinath Noriega on 07-06-2023 MCV (RBC) [Entitic vol] 87.8 fL 80.0-94.[address] [facility] Monocytes Auto (Bld) [#/Vol] Ordered By: Srinath Noriega on 07-06-2023 Monocytes (Bld) [#/Vol] 0.3747 10*3/uL 0.1-1.0 [facility] Monocytes/100 WBC Auto (Bld) Ordered By: Srinath Noriega on 07-06-2023 Monocytes/100 WBC (Bld) 3.151 % 1.7-9.[address] [facility] Neutrophils/100 WBC Auto (Bl d)Ordered By: Srinath Noriega on 07-06-2023 Neutrophils/100 WBC (Bld) 73.14 % 42.2-75.2 [facility] No Panel InformationOrdered By: Srinath Noriega on 07-06-2023 Alanine Aminotransferase (ALT/SGPT) 38 units/L High 4-35 [facility] Albumin/Globulin Ratio 1.3 g/dL [facility] Lymphocytes (%) (Auto) 22.71 20-51.1 [facility] Platelet Count 364.8 Thou/mm3 130-400 [facility] Trichomonas screenOrdered By : Srinath Noriega on 07-06-2023 Albumin [Mass/Vol] 4.1 g/dL 3.5-5.0 [facility] Bilirubin [Mass/Vol] 0.8 mg/dL 0.2-1.3 [facility] Chloride [Moles/Vol] 102 mmol/L 98-120 [facility] Creatinine [Mass/Vol] 1.1 mg/dL High 0.5-1.0 [facility] Glucose [Mass/Vol] 316 mg/dL High 65-105 [facility] Hemoglobin (Bld) [Mass/Vol] 13.4 g/dL 12.0-16.0 [facility] Potassium [Moles/Vol] 3.6 mmol/L 3.6-5.0 [facility] Protein [Mass/Vol] 7.1 g/dL 6.3-8.2 [facility] Sodium [Moles/Vol] 136 mmol/L 135-145 [facility] Trichomonas screen 11.9 Thou/mL3 High 4.8-10.8 [facility] Trichomonas screen 56.8 [facility] Trichomonas screen 28 units/L 14-36 [facility] AMYLASEon 03-16-2022 Amylase [Catalytic activity/Vol] 49 U/L Normal 25-115 [facility] Comment on above: Performed By: #### A MY, CMP, LIPA #### [facility] [address] [address] [address] Phi Souza Basophils Auto (Bld) [#/Vol] Ordered By: Huey Maharaj on 03-16-2022 Basophils (Bld) [#/Vol] 0.0 10*3/uL 0.0-0.2 [facility] Basophils/100 WBC Auto (Bld) Ordered By: Huey Maharaj on 03-16-2022 Basophils/100 WBC (Bld) 0.4 % . [facility] Blood hemoglobin measurement (mass/volume)Ordered By: Huey Maharaj on 03-16-2022 Hemoglobin (Bld) [Mass/Vol] 11.9 g/dL 11.8-15.4 [facility] Blood leukocytes automated c ount (number/volume)Ordered By: Huey Maharaj on 03-16-2022 WBC (Bld) [#/Vol] 6.5 10*3/uL 4.5-11.0 [facility] Body fluid albumin measureme nt (mass/volume)Ordered By: Huey Maharaj on 03-16-2022 Albumin (Body fld) [Mass/Vol] 3.1 g/dL 3.2-5.5 [facility] CBC AUTO DIFFon 03-16-2022 BASO # 0.0 103/ul Normal 0.0-0.1 [facility] Comment on above: Performed By: #### C BC #### [facility] [address] [place] [address] Dr. Phi Souza Basophils/100 WBC (Bld) 0.5 % Normal 0.2-2.0 [facility] Comment on above: Performed By: #### C BC #### [facility] [address] [place] [address] Dr. Phi Souza EO # 0.1 103/ul Normal 0.0-0.7 [facility] Comment on above: Performed By: #### C BC #### [facility] [address] [place] [address] Dr. Phi Souza Eosinophils/100 WBC (Bld) 1.2 % Normal 0.9-7.0 [facility] Comment on above: Performed By: #### C BC #### [facility] [address] [place] [address] Dr. Phi Souza Erythrocyte distribution width (RBC) [Ratio] 12.7 % Normal 11.0-15.0 [facility] Comment on above: Performed By: #### C BC #### [facility] [address] [place] [address] Dr. Phi Souza Hematocrit (Bld) [Volume fraction] 37.6 % Normal 36.0-48.0 [facility] Comment on above: Performed By: #### C BC #### [facility] [address] [place] [address] Dr. Phi Souza Hemoglobin (Bld) [Mass/Vol] 12.3 g/dL Normal 12.0-16.0 [facility] Comment on above: Performed By: #### C BC #### [facility] [address] [place] [address] Dr. Phi Souza IG # 0.03 10e3/ul Normal 0.00-0.03 [facility] Comment on above: Performed By: #### C BC #### [facility] [address] [place] [address] Dr. Phi Souza IG % 0.5 % Normal 0.0-0.5 [facility] Comment on above: Performed By: #### C BC #### [facility] [address] [address] [address] Phi Souza LYMPH # 1.8 103/ul Normal 1.2-3.8 [facility] Comment on above: Performed By: #### C BC #### [facility] [address] [address] [address] Phi Souza Lymphocytes/100 WBC (Bld) 30.1 % Normal 20.5-60.0 [facility] Comment on above: Performed By: #### C BC #### [facility] [address] [place] [address] Dr. Phi Souza MANUAL DIFF REQ NO Normal [facility] Comment on above: Performed By: #### C BC #### [facility] [address] [place] [address] Dr. Phi Souza MCH (RBC) [Entitic mass] 28.5 pg Normal 26.7-34.0 [facility] Comment on above: Performed By: #### C BC #### [facility] [address] [place] [address] Dr. Phi Souza MCHC (RBC) [Mass/Vol] 32.7 g/dL Normal 29.9-35.2 [facility] Comment on above: Performed By: #### C BC #### [facility] [address] [place] [address] Dr. Phi Souza MCV (RBC) [Entitic vol] 87.2 fL Normal 81.0-99.0 [facility] Comment on above: Performed By: #### C BC #### [facility] [address] [place] [address] Dr. Phi Souza MONO # 0.4 103/ul Normal 0.3-0.8 [facility] Comment on above: Performed By: #### C BC #### [facility] [address] [place] [address] Dr. Phi Souza Monocytes/100 WBC (Bld) 7.2 % Normal 1.7-12.0 [facility] Comment on above: Performed By: #### C BC #### [facility] [address] [address] [address] Phi Souza NEUT # 3.6 103/ul Normal 1.4-6.5 [facility] Comment on above: Performed By: #### C BC #### [facility] [address] [place] [address] Dr. Phi Souza Neutrophils/100 WBC (Bld) 60.5 % Normal 43.0-75.0 [facility] Comment on above: Performed By: #### C BC #### [facility] [address] [place] [address] Dr. Phi Souza Platelet mean volume (Bld) [Entitic vol] 8.8 fL Critically low 9.5-13.5 [facility] Comment on above: Performed By: #### C BC #### [facility] [address] [place] [address] Dr. Phi Souza PLT 305 103/ul Normal 150-450 [facility] Comment on above: Performed By: #### C BC #### [facility] [address] [place] [address] Dr. Phi Souza RBC 4.31 106/ul Normal 4.20-5.40 [facility] Comment on above: Performed By: #### C BC #### [facility] [address] [place] [address] Dr. Phi Souza WBC 5.9 103/ul Normal 4.0-11.0 [facility] Comment on above: Performed By: #### C BC #### [facility] [address] [place] [address] ABD/PELVIS WO CONon 03-16 CT ABD/PELVIS WO CON EXAMINATION: CT ABD/PELVIS WO CON, 03/16/2022 12:43 AM EDT HISTORY: UNSPECIFIED ABDOMINAL PAIN nausea vomiting, history of Crohns COMPARISON: CT abdomen pelvis 01/22/2022 TECHNIQUE: CT scan of the abdomen and pelvis was performed without IV contrast. CT dose reduction technique was used, including Automated Exposure Control. FINDINGS: Visualized lung bases and cardiac apex are unremarkable. Status post cholecystectomy. Moderate hepatic steatosis. Pancreas, spleen, adrenal glands, urinary bladder, uterus and other pelvic structures are unremarkable. Appendix is not seen. Fluid and debris within the mildly distended stomach is nonspecific. No perigastric inflammatory stranding, free fluid, or free air. Mild colonic diverticula without diverticulitis. No evidence for small bowel obstruction, large ascites, or free air. Multiple bilateral nonobstructing renal stones measuring up to 5 mm at the right superior kidney and 7 mm at the left inferior kidney. No acute bony abnormality. IMPRESSION: No CT evidence for acute abdominal inflammatory imaging features. Mild colonic diverticula without diverticulitis. Moderate hepatic steatosis. Bilateral nonobstructing renal stones. Electronically authenticated by: DEIDRA MILLER Date: 2022-03-16 02:42 Normal [facility] Complete Blood Count Auto Di ffon 03-16-2022 Basophils (Bld) [#/Vol] 0.0 10*3/uL Normal 0.0-0.2 [facility] Comment on above: Result Comment: PERF ORMED BY: [place] [address] PATHOLOGIST WIRE BRUSHER KIERRA BROOKS M.D. Performed By: #### L IPASE, CBC, CMP #### [address] Basophils/100 WBC (Bld) 0.4 % Normal . [facility] Comment on above: Performed By: #### L IPASE, CBC, CMP #### [address] Eosinophils (Bld) [#/Vol] 0.1 10*3/uL Normal 0.0-0.45 [facility] Comment on above: Performed By: #### L IPASE, CBC, CMP #### [place] [address] [place] Eosinophils/100 WBC (Bld) 1.0 % Normal . [facility] Comment on above: Performed By: #### L IPASE, CBC, CMP #### [facility] [address] [place] [address] Erythrocyte distribution width (RBC) [Ratio] 14.2 % Normal 11.9-15.3 [facility] Comment on above: Performed By: #### L IPASE, CBC, CMP #### [address] Hematocrit (Bld) [Volume fraction] 36.7 % Normal 34.0-46.4 [facility] Comment on above: Performed By: #### L IPASE, CBC, CMP #### [address] Hemoglobin (Bld) [Mass/Vol] 11.9 g/dL Normal 11.8-15.4 [facility] Comment on above: Performed By: #### L IPASE, CBC, CMP #### [address] Lymphocytes (Bld) [#/Vol] 1.8 10*3/uL Normal 1.00-4.8 [facility] Comment on above: Performed By: #### L IPASE, CBC, CMP #### [address] Lymphocytes/100 WBC (Bld) 28.0 % Normal . [facility] Comment on above: Performed By: #### L IPASE, CBC, CMP #### [address] MCH (RBC) [Entitic mass] 28.2 pg Normal 24.7-34.3 [facility] Comment on above: Performed By: #### L IPASE, CBC, CMP #### [address] MCV (RBC) [Entitic vol] 86.6 fL Normal 80-100 [facility] Comment on above: Performed By: #### L IPASE, CBC, CMP #### [address] Mean Corpuscular HGB Conc 32.5 g/dL Normal 32.0-35.0 [facility] Comment on above: Performed By: #### L IPASE, CBC, CMP #### [address] Monocytes (Bld) [#/Vol] 0.6 10*3/uL Normal 0.0-0.8 [facility] Comment on above: Performed By: #### L IPASE, CBC, CMP #### [facility] [address] [place] [address] [place] Monocytes/100 WBC (Bld) 9.9 % Normal . [facility] Comment on above: Performed By: #### L IPASE, CBC, CMP #### [facility] [address] Neutrophils (Bld) [#/Vol] 3.9 10*3/uL Normal 1.8-7.7 [facility] Comment on above: Performed By: #### L IPASE, CBC, CMP #### [address] Neutrophils/100 WBC (Bld) 60.7 % Normal . [facility] Comment on above: Performed By: #### L IPASE, CBC, CMP #### [address] Nucleated RBC/100 WBC (Bld) [Ratio] 0.1 % Normal 0-0.5 [facility] Comment on above: Performed By: #### L IPASE, CBC, CMP #### [address] Platelet mean volume (Bld) [Entitic vol] 7.4 fL Normal 6.3-10.7 [facility] Comment on above: Performed By: #### L IPASE, CBC, CMP #### [place] [address] [place] Platelets (Bld) [#/Vol] 313 10*3/uL Normal 150-450 [facility] Comment on above: Performed By: #### L IPASE, CBC, CMP #### [place] [address] [place] RBC (Bld) [#/Vol] 4.24 10*6/uL Normal 3.60-5.00 [facility] Comment on above: Performed By: #### L IPASE, CBC, CMP #### [place] [address] [place] WBC (Bld) [#/Vol] 6.5 10*3/uL Normal 4.5-11.0 [facility] Comment on above: Performed By: #### L IPASE, CBC, CMP #### [facility] [address] Comprehensive Metabolic Pane johan 03-16-2022 Albumin [Mass/Vol] 3.1 g/dL Low 3.2-5.5 [facility] Comment on above: Performed By: #### L IPASE, CBC, CMP #### [facility] [address] Albumin/Globulin [Mass ratio] 1.0 {ratio} Normal [facility] Comment on above: Performed By: #### L IPASE, CBC, CMP #### [address] ALP [Catalytic activity/Vol] 59 U/L Normal 32-92 [facility] Comment on above: Performed By: #### L IPASE, CBC, CMP #### [address] ALT [Catalytic activity/Vol] 28 U/L Normal 10-60 [facility] Comment on above: Performed By: #### L IPASE, CBC, CMP #### [address] Anion gap [Moles/Vol] 13.6 mmol/L Normal 6.0-15.0 [facility] Comment on above: Performed By: #### L IPASE, CBC, CMP #### [facility] [address] [place] [address] AST [Catalytic activity/Vol] 19 U/L Normal 10-42 [facility] Comment on above: Performed By: #### L IPASE, CBC, CMP #### [facility] [address] Bilirubin [Mass/Vol] 0.6 mg/dL Normal 0.3-1.2 [facility] Comment on above: Performed By: #### L IPASE, CBC, CMP #### [facility] [address] [place] [address] [place] Calcium [Mass/Vol] 8.9 mg/dL Normal 8.2-10.2 [facility] Comment on above: Performed By: #### L IPASE, CBC, CMP #### [facility] [address] Chloride [Moles/Vol] 100 mmol/L Normal 95-114 [facility] Comment on above: Performed By: #### L IPASE, CBC, CMP #### [facility] [address] CO2 [Moles/Vol] 25.2 mmol/L Normal 22.0-30.0 [facility] Comment on above: Performed By: #### L IPASE, CBC, CMP #### [facility] [address] Creatinine [Mass/Vol] 0.89 mg/dL Normal 0.44-1.03 [facility] Comment on above: Performed By: #### L IPASE, CBC, CMP #### [facility] [address] [place] [address] [place] Creatinine Clr Calc Pharmacy 115.22 [facility] Comment on above: Performed By: #### L IPASE, CBC, CMP #### [facility] [address] Estimated GFR ( Miranda > 60 [facility] Comment on above: Result Comment: GFR estimated reference range: According to KDOQI guidelines, <60 ml/min/1.73m2 is sufficient to diagnose a patient with chronic kidney disease. Performed By: #### L IPASE, CBC, CMP #### [facility] [address] Estimated GFR (Non- Am > 60 [facility] Comment on above: Performed By: #### L IPASE, CBC, CMP #### [facility] [address] Globulin (S) [Mass/Vol] 3.1 g/dL Normal [facility] Comment on above: Performed By: #### L IPASE, CBC, CMP #### [facility] [address] [place] [address] [place] Glucose [Mass/Vol] 159 mg/dL High 70-100 [facility] Comment on above: Result Comment: [place] Glucose Reference Range is dependent on time and content of last meal. Glucose of more than 200 mg/dL in a nonstressed, ambulatory subject supports the diagnosis of Diabetes Mellitus. ADA recommended reference range Performed By: #### L IPASE, CBC, CMP #### [facility] [address] Potassium [Moles/Vol] 3.8 mmol/L Normal 3.5-5.1 [facility] Comment on above: Performed By: #### L IPASE, CBC, CMP #### [facility] [address] Protein [Mass/Vol] 6.2 g/dL Normal 6.1-7.9 [facility] Comment on above: Performed By: #### L IPASE, CBC, CMP #### [facility] [address] Sodium [Moles/Vol] 135 mmol/L Low 136-146 [facility] Comment on above: Performed By: #### L IPASE, CBC, CMP #### [facility] [address] [id number] [place] Urea nitrogen [Mass/Vol] 12 mg/dL Normal 9-23 [facility] Comment on above: Performed By: #### L IPASE, CBC, CMP #### [facility] [address] [place] [address] [place] Creatinine and Glomerular fi ltration rate.predicted panel (S/P/Bld)Ordered By: Huey Maharaj on 03-16-2022 Creatinine [Mass/Vol] 0.89 mg/dL 0.44-1.03 [facility] ER URINE PROFILEon 2 Bilirubin Ql (U) Negative Normal NEGATIVE [facility] Comment on above: Performed By: #### E RUR #### [facility] [address] [address] [address] Phi Souza Clarity (U) CLEAR Normal CLEAR [facility] Comment on above: Performed By: #### E RUR #### [facility] [address] [place] [address] Dr. Phi Souza Color (U) LT. YELLOW Normal YELLOW [facility] Comment on above: Performed By: #### E RUR #### [facility] [address] [place] [address] Dr. Phi NATHANAHD A micrscopic examination will be performed if indicated. Normal [facility] Comment on above: Performed By: #### E RUR #### [facility] [address] [place] [address] Dr. Phi Souza Glucose Ql (U) Negative Normal NEGATIVE [facility] Comment on above: Performed By: #### E RUR #### [facility] [address] [place] [address] Dr. Phi Souza Hemoglobin Ql (U) Negative Normal NEGATIVE [facility] Comment on above: Performed By: #### E RUR #### [facility] [address] [place] [address] Dr. Phi Souza Ketones Ql (U) Negative Normal NEGATIVE [facility] Comment on above: Performed By: #### E RUR #### [facility] [address] [place] [address] Dr. Phi Souza LEUKOCYTES Negative Normal NEGATIVE [facility] Comment on above: Performed By: #### E RUR #### [facility] [address] [place] [address] Dr. Phi Souza Nitrite Ql (U) Negative Normal NEGATIVE [facility] Comment on above: Performed By: #### E RUR #### [facility] [address] [place] [address] Dr. Phi Souza pH (U) 6.0 [pH] Normal 5-9 [facility] Comment on above: Performed By: #### E RUR #### [facility] [address] [place] [address] Dr. Phi Souza SPEC GRAVITY 1.025 Normal 1.005-<=1.02 5 [facility] Comment on above: Performed By: #### E RUR #### [facility] [address] [address] [address] Phi Souza UA PROTEIN Negative Normal NEGATIVE/ TRACE [facility] Comment on above: Performed By: #### E RUR #### [facility] [address] [address] [address] Phi Souza UR MICRO IND NOT INDICATED Normal [facility] Comment on above: Performed By: #### E RUR #### [facility] [address] [address] [address] Phi Souza Urobilinogen Qn (U) 0.2 {Gianni'U}/dL Normal 0.2 - 1. [address] [facility] Comment on above: Performed By: #### E RUR #### [facility] [address] [place] [address] Dr. Phi Souza Eosinophils Auto (Bld) [#/Vo l]Ordered By: Huey Maharaj on 03-16-2022 Eosinophils (Bld) [#/Vol] 0.1 10*3/uL 0.0-0.45 [facility] Eosinophils/100 WBC Auto (Bl d)Ordered By: Huey Maharaj on 03-16-2022 Eosinophils/100 WBC (Bld) 1.0 % . [facility] Erythrocyte distribution wid th Auto (RBC) [Ratio]Ordered By: Huey Maharaj on 03-16-2022 Erythrocyte distribution width (RBC) [Ratio] 14.2 % 11.9-15.3 [facility] Estimated glomerular filtrat ion rate (GFR) non- AmericanOrdered By: Huey Maharaj on 03-16-2022 GFR/1.73 sq M.predicted among non-blacks MDRD (S/P/Bld) [Vol rate/Area] > 60 mL/Min [facility] Globulin Calc (S) [Mass/Vol] Ordered By: Huey Maharaj on 03-16-2022 Globulin (S) [Mass/Vol] 3.1 g/dL F [facility] Hematocrit Auto (Bld) [Volum e fraction]Ordered By: Huey Maharaj on 03-16-2022 Hematocrit (Bld) [Volume fraction] 36.7 % 34.0-46.4 [facility] LIPASEon 03-16-2022 Lipase [Catalytic activity/Vol] 161.0 U/L Normal 73.0-393.0 [facility] Comment on above: Performed By: #### A MY, CMP, LIPA #### [facility] [address] [address] [address] Phi Souza Laboratory - Chemistry and C hemistry - challengeOrdered By: Huey Maharaj on 03-16-2022 Lipase [Catalytic activity/Vol] 85.0 U/L [facility] - Hematology and Cell countsOrdered By: Huey Maharaj on 03-16-2022 Nucleated RBC/100 WBC (Bld) [Ratio] 0.1 % 0-0.5 [facility] Lipaseon 03-16-2022 Lipase [Catalytic activity/Vol] 85.0 U/L High [facility] Comment on above: Result Comment: PERF ORMED BY: [place] [address] PATHOLOGIST WIRE BRUSHER KIERRA BROOKS M.D. Performed By: #### L IPASE, CBC, CMP #### [address] Lymphocytes Auto (Bld) [#/Vo l]Ordered By: Huey Maharaj on 03-16-2022 Lymphocytes (Bld) [#/Vol] 1.8 10*3/uL 1.00-4.8 [facility] Lymphocytes/100 WBC Auto (Bl d)Ordered By: Huey Maharaj on 03-16-2022 Lymphocytes/100 WBC (Bld) 28.0 % . [facility] MCH Auto (RBC) [Entitic mass ]Ordered By: Huey Maharaj on 03-16-2022 MCH (RBC) [Entitic mass] 28.2 pg 24.7-34.3 [facility] MCHC Auto (RBC) [Mass/Vol]Or dered By: Huey Maharaj on 03-16-2022 MCHC (RBC) [Mass/Vol] 32.5 g/dL 32.0-35.0 [facility] MCV Auto (RBC) [Entitic vol] Ordered By: Huey Maharaj on 03-16-2022 MCV (RBC) [Entitic vol] 86.6 fL 80-100 F [facility] Monocytes Auto (Bld) [#/Vol] Ordered By: Huey Maharaj on 03-16-2022 Monocytes (Bld) [#/Vol] 0.6 10*3/uL 0.0-0.8 [facility] Monocytes/100 WBC Auto (Bld) Ordered By: Huey Maharaj on 03-16-2022 Monocytes/100 WBC (Bld) 9.9 % . F [facility] Neutrophils Auto (Bld) [#/Vo l]Ordered By: Huey Maharaj on 03-16-2022 Neutrophils (Bld) [#/Vol] 3.9 10*3/uL 1.8-7.7 [facility] Neutrophils/100 WBC Auto (Bl d)Ordered By: Huey Maharaj on 03-16-2022 Neutrophils/100 WBC (Bld) 60.7 % . [facility] No Panel InformationOrdered By: Huey Maharaj on 03-16-2022 Estimated GFR () > 60 mL/Min [facility] Comment on above: GFR estimated refere nce range: According to KDOQI guidelines, <60 ml/min/1.73m2 is sufficient to diagnose a patient with chronic kidney disease. Pharmacy Creatinine Clearance (Chem 115.22 [facility] PROF 14(COMP METB)on 022 Albumin [Mass/Vol] 3.2 g/dL Critically low 3.4-5.0 [facility] Comment on above: Performed By: #### A MY, CMP, LIPA #### [facility] [address] [address] [address] Phi Souza Albumin/Globulin [Mass ratio] 0.8 {ratio} Normal [facility] Comment on above: Performed By: #### A MY, CMP, LIPA #### [facility] [address] [address] [address] Phi Souza ALP [Catalytic activity/Vol] 74 U/L Normal 46-116 [facility] Comment on above: Performed By: #### A MY, CMP, LIPA #### [facility] [address] [address] [address] Phi Souza ALT [Catalytic activity/Vol] 35 U/L Normal 14-59 [facility] Comment on above: Performed By: #### A MY, CMP, LIPA #### [facility] [address] [address] [address] Phi Souza Anion gap [Moles/Vol] 9.5 mmol/L Normal [facility] Comment on above: Performed By: #### A MY, CMP, LIPA #### [facility] [address] [address] [address] Phi Souza AST [Catalytic activity/Vol] 15 U/L Normal 15-37 [facility] Comment on above: Performed By: #### A MY, CMP, LIPA #### [facility] [address] [address] [address] Phi Souza Bilirubin [Mass/Vol] 0.3 mg/dL Normal 0.2-1.0 [facility] Comment on above: Performed By: #### A MY, CMP, LIPA #### [facility] [address] [address] [address] Phi Souza Calcium [Mass/Vol] 9.2 mg/dL Normal 8.5-10.1 [facility] Comment on above: Performed By: #### A MY, CMP, LIPA #### [facility] [address] [address] [address] Phi Souza Chloride [Moles/Vol] 100 mmol/L Normal 98-107 [facility] Comment on above: Performed By: #### A MY, CMP, LIPA #### [facility] [address] [address] [address] Phi Souza CO2 [Moles/Vol] 30.4 mmol/L Normal 21.0-32.0 [facility] Comment on above: Performed By: #### A MY, CMP, LIPA #### [facility] [address] [address] [address] Phi Souza Creatinine [Mass/Vol] 1.00 mg/dL Normal 0.55-1.02 [facility] Comment on above: Performed By: #### A MY, CMP, LIPA #### [facility] [address] [address] [address] Phi Souza EGFR-AF WALLISIAN >60 Normal >=60 [facility] Comment on above: Performed By: #### A MY, CMP, LIPA #### [facility] [address] [place] [address] Dr. Phi Souza EGFR-NON AF WALLISIAN 60 mL/min/1.73m2 Normal >=60 [facility] Comment on above: Performed By: #### A MY, CMP, LIPA #### [facility] [address] [place] [address] Dr. Phi Souza Globulin (S) [Mass/Vol] 3.8 g/dL Normal [facility] Comment on above: Performed By: #### A MY, CMP, LIPA #### [facility] [address] [place] [address] Dr. Phi Souza Glucose [Mass/Vol] 150 mg/dL Critically high 74-106 [facility] Comment on above: Performed By: #### A MY, CMP, LIPA #### [facility] [address] [place] [address] Dr. Phi Souza Potassium [Moles/Vol] 3.9 mmol/L Normal 3.5-5.1 [facility] Comment on above: Performed By: #### A MY, CMP, LIPA #### [facility] [address] [place] [address] Dr. Phi Souza Protein [Mass/Vol] 7.0 g/dL Normal 6.4-8.2 [facility] Comment on above: Performed By: #### A MY, CMP, LIPA #### [facility] [address] [place] [address] Dr. Phi Souza Sodium [Moles/Vol] 136 mmol/L Normal 136-145 [facility] Comment on above: Performed By: #### A MY, CMP, LIPA #### [facility] [address] [place] [address] Dr. Phi Souza Urea nitrogen [Mass/Vol] 14.0 mg/dL Normal 7.0-18.0 [facility] Comment on above: Performed By: #### A MY, CMP, LIPA #### [facility] [address] [place], [place] [address] Dr. Phi Souza Urea nitrogen/Creatinine [Mass ratio] 14.0 mg/mg Normal [facility] Comment on above: Performed By: #### A MY, CMP, LIPA #### [facility] [address] [place], [place] [address] Dr. Phi Souza Platelet mean volume Auto (B ld) [Entitic vol]Ordered By: Huey Maharaj on 03-16-2022 Platelet mean volume (Bld) [Entitic vol] 7.4 fL 6.3-10.7 [facility] Platelets Auto (Bld) [#/Vol] Ordered By: Huey Maharaj on 03-16-2022 Platelets (Bld) [#/Vol] 313 10*3/uL 150-450 [facility] Protein [Mass/volume] in Ser um or PlasmaOrdered By: Huey Maharaj on 03-16-2022 Protein [Mass/Vol] 6.2 g/dL 6.1-7.9 [facility] RBC Auto (Bld) [#/Vol]Ordere d By: Huey Maharaj on 03-16-2022 RBC (Bld) [#/Vol] 4.24 10*6/uL 3.60-5.00 [facility] Serum or plasma alanine villalobos otransferase measurement without P-5'-P (enzymatic activiOrdered By: Huey Maharaj on 03-16-2022 ALT No additional P-5'-P [Catalytic activity/Vol] 28 U/L 10-60 [facility] Serum or plasma albumin/glob ulin mass ratioOrdered By: Huey Maharaj on 03-16-2022 Albumin/Globulin [Mass ratio] 1.0 {ratio} [facility] Serum or plasma alkaline zan sphatase measurement (enzymatic activity/volume)Ordered By: Huey Maharaj on 03-16-2022 ALP [Catalytic activity/Vol] 59 U/L 32-92 [facility] Serum or plasma anion gap de terminationOrdered By: Huey Maharaj on 03-16-2022 Anion gap [Moles/Vol] 13.6 mmol/L 6.0-15.0 [facility] Serum or plasma aspartate am inotransferase measurement (enzymatic activity/volume)Ordered By: Huey Maharaj on 03-16-2022 AST [Catalytic activity/Vol] 19 U/L 10-42 [facility] Serum or plasma calcium rosa m urement (mass/volume)Ordered By: Huey Maharaj on 03-16-2022 Calcium [Mass/Vol] 8.9 mg/dL 8.2-10.2 [facility] Serum or plasma chloride joshua surement (moles/volume)Ordered By: Huey Maharaj on 03-16-2022 Chloride [Moles/Vol] 100 mmol/L 95-114 [facility] Serum or plasma glucose rosa m urement (mass/volume)Ordered By: Huey Maharaj on 03-16-2022 Glucose [Mass/Vol] 159 mg/dL 70-100 [facility] Comment on above: ADA recommended refe rence rangeRandom Glucose Reference Range is dependent on time and content of last meal. Glucose of more than 200 mg/dL in a nonstressed, ambulatory subject supports the diagnosis of Diabetes Mellitus. Serum or plasma potassium me asurement (moles/volume)Ordered By: Huey Maharaj on 03-16-2022 Potassium [Moles/Vol] 3.8 mmol/L 3.5-5.1 [facility] Serum or plasma sodium measu rement (moles/volume)Ordered By: Huey Maharaj on 03-16-2022 Sodium [Moles/Vol] 135 mmol/L 136-146 [facility] Serum or plasma total biliru bin measurement (mass/volume)Ordered By: Huey Maharaj on 03-16-2022 Bilirubin [Mass/Vol] 0.6 mg/dL 0.3-1.2 [facility] Serum or plasma total carbon dioxide measurement (moles/volume)Ordered By: Huey Maharaj on 03-16-2022 CO2 [Moles/Vol] 25.2 mmol/L 22.0-30.0 [facility] Serum or plasma urea nitroge n measurement (mass/volume)Ordered By: Huey Maharaj on 03-16-2022 Urea nitrogen [Mass/Vol] 12 mg/dL 03-10 [facility] .UA Microscp 01-22-2022 UA Bacteria Absent Normal Absent [facility] Comment on above: Performed By: #### E GFR #### [facility] [address] [place] [address] UA RBC Qual Absent Normal 0 - 5 [facility] Comment on above: Performed By: #### E GFR #### [facility] [address] [place] [address] UA Squepi Cells Qual Rare Normal 0 - 29 [facility] Comment on above: Performed By: #### E GFR #### [id number] [place] [address] UA WBC Qual Rare Normal 0 - 5 [facility] Comment on above: Performed By: #### E GFR #### [address] [address] .eGFRon 01-22-2022 GFR/1.73 sq M.predicted MDRD (S/P/Bld) [Vol rate/Area] mL/min/{1.73_m2} Normal >=60 [facility] Comment on above: Order Comment: Order added by Discern rule Result Comment: [facility] have implemented the eGFR calculation approach that does not have a coefficient for race and that conforms to the NKF-ASN Task Force Recommendations. Stages of Chronic Kidney Disease GFR Stage 3a Mild to moderate loss of kidney function 59 to 45 Stage 3b Moderate to severe loss of kidney function 44 to 33 Stage 4 Severe loss of kidney function 29 to 15 Stage 5 Kidney failure Less than 15 GFR calculated using the CKD-Epi Creatinine Equation (2020): eGFR = 142 X min(SCr/?, 1)? X max(SCr /?, 1)-1.200 X 0.9938Age X 1.012 [if female] Abbreviations/Units: eGFR (estimated glomerular filtration rate) = mL/min/1.73 m2 SCr (standardized serum creatinine) = mg/dL ? = 0.7 (females) or 0.9 (males) ? = -0.241 (females) or -0.302 (males) min = indicates the minimum of SCr/? or 1 max = indicates the maximum of SCr/? or 1 Age = years Performed By: #### E GFR #### [facility] [address] [place] [address] CBC W Auto Differential pane l (Bld)on 01-22-2022 BASOPHIL ABSOLUTE COUNT 0.02 x10*3/uL Normal 0.0-0.1 [facility] Comment on above: Performed By: #### 5 7021-8 ####[address] [address] [facility] Basophils/100 WBC (Bld) 0.3 % Normal 0.0-1.1 [facility] Comment on above: Performed By: #### 5 7021-8 ####[address] [address] [facility] EOS ABSOLUTE COUNT 0.01 x10*3/uL Normal 0.0-0.5 [facility] Comment on above: Performed By: #### 5 7021-8 ####[address] [address] [facility] Eosinophils/100 WBC (Bld) 0.1 % Normal 0.0-6.0 [facility] Comment on above: Performed By: #### 5 7021-8 ####[address] [address] [facility] Hematocrit (Bld) [Volume fraction] 38.4 % Normal 33.5-47.0 [facility] Comment on above: Performed By: #### 5 7021-8 ####[address] [address] [facility] Hemoglobin (Bld) [Mass/Vol] 12.7 g/dL Normal 11.0-17.0 [facility] Comment on above: Performed By: #### 5 7021-8 ####[address] [address] [facility] IMMATURE GRAN ABSOLUTE COUNT 0.04 x10*3/uL Normal 0.0-0.5 [facility] Comment on above: Performed By: #### 5 7021-8 ####[address] [address] [facility] Immature granulocytes/100 WBC (Bld) 0.5 % Normal 0.0-2.99 [facility] Comment on above: Performed By: #### 5 7021-8 ####[address] LYMPHOCYTE ABSOLUTE COUNT 0.89 x10*3/uL Normal 0.5-3.2 [facility] Comment on above: Performed By: #### 5 7021-8 ####[address] Lymphocytes/100 WBC (Bld) 11.5 % Low 13.0-39.0 [facility] Comment on above: Performed By: #### 5 7021-8 ####[address] MCH (RBC) [Entitic mass] 28.7 pg Normal 26.0-33.0 [facility] Comment on above: Performed By: #### 5 7021-8 ####[address] MCV (RBC) [Entitic vol] 86.9 fL Normal 81.0-98.0 [facility] Comment on above: Performed By: #### 5 7021-8 ####[address] MEAN CORPUSCULAR HGB CONC 33.1 g/dl Normal 31.0-35.0 [facility] Comment on above: Performed By: #### 5 7021-8 ####[address] MONOCYTE ABSOLUTE COUNT 0.27 x10*3/uL Normal 0.0-1.0 [facility] Comment on above: Performed By: #### 5 7021-8 ####[address] Monocytes/100 WBC (Bld) 3.5 % Low 4.0-13.0 [facility] Comment on above: Performed By: #### 5 7021-8 ####[address] NEUTROPHIL COUNT ABSOLUTE 6.50 x10*3/uL High 1.5-6.2 [facility] Comment on above: Performed By: #### 5 7021-8 ####[address] [address] [facility] Neutrophils/100 WBC (Bld) 84.1 % High 47.0-76.0 [facility] Comment on above: Performed By: #### 5 7021-8 ####[id number] [facility] NUCLEATED RBC ABSOLUTE COUNT 0.00 x10*3/uL Normal [facility] Comment on above: Performed By: #### 5 7021-8 ####[address] [id number] [facility] Nucleated RBC/100 WBC (Bld) [Ratio] 0.0 % Normal [facility] Comment on above: Performed By: #### 5 7021-8 ####[address] [id number] [facility] PLATELET COUNT 269 x10*3/uL Normal 150-400 [facility] Comment on above: Performed By: #### 5 7021-8 ####[address] [address] [facility] Platelet mean volume (Bld) [Entitic vol] 9.4 fL Normal 9.0-12.1 [facility] Comment on above: Performed By: #### 5 7021-8 ####[address] [address] [facility] RED BLOOD COUNT 4.42 x10*6/uL Normal 3.8-6.0 [facility] Comment on above: Performed By: #### 5 7021-8 ####[address] [address] [facility] RED CELL DISTRIBUTION WIDTH 41.1 fL Normal 36.7-49.4 [facility] Comment on above: Performed By: #### 5 7021-8 ####[address] [address] [facility] WHITE BLOOD COUNT 7.73 X10*3/uL Normal 3.8-11.5 [facility] Comment on above: Performed By: #### 5 7021-8 ####[facility] [id number] [place] [address] CBC w/ Diffon 01-22-2022 Erythrocyte distribution width (RBC) [Ratio] 14.3 % Normal 11.6-14.8 [facility] Comment on above: Performed By: #### C BC #### [place] [address] Hematocrit (Bld) [Volume fraction] 38.1 % Normal 36.0-46.0 [facility] Comment on above: Performed By: #### C BC #### [place] [address] Hemoglobin (Bld) [Mass/Vol] 12.7 g/dL Normal 12.0-16.0 [facility] Comment on above: Performed By: #### C BC #### [place] [address] MCH (RBC) [Entitic mass] 28.5 pg Normal 27.0-35.0 [facility] Comment on above: Performed By: #### C BC #### [place] [address] MCHC 33.3 % Normal 31.0-37.0 [facility] Comment on above: Performed By: #### C BC #### [place] [address] MCV (RBC) [Entitic vol] 85.8 fL Normal 80.0-100.0 [facility] Comment on above: Performed By: #### C BC #### [place] [address] Platelet 276 x10*3/mcL Normal 150-350 [facility] Comment on above: Performed By: #### C BC #### [place] [address] Platelet mean volume (Bld) [Entitic vol] 7.3 fL Low 7.5-11.5 [facility] Comment on above: Performed By: #### C BC #### [address] [address] RBC 4.44 x10*6/mcL Normal 3.80-5.20 [facility] Comment on above: Performed By: #### C BC #### [address] [address] WBC 6.0 x10*3/mcL Normal 4.5-11.0 [facility] Comment on above: Performed By: #### C BC #### [address] [address] CMPon 01-22-2022 Albumin [Mass/Vol] 3.8 g/dL Normal 3.7-5.3 [facility] Comment on above: Performed By: #### E GFR #### [address] [address] Albumin/Globulin [Mass ratio] 1.4 {ratio} Normal 1.1-2.2 [facility] Comment on above: Performed By: #### E GFR #### [address] [address] Alk Phos 57 IU/L Normal 34-104 [facility] Comment on above: Performed By: #### E GFR #### [address] [address] ALT [Catalytic activity/Vol] 34 U/L Normal 7-52 [facility] Comment on above: Performed By: #### E GFR #### [address] [address] Anion gap [Moles/Vol] 11 mmol/L Normal 7-17 [facility] Comment on above: Performed By: #### E GFR #### [address] [address] AST [Catalytic activity/Vol] 20 U/L Normal 13-39 [facility] Comment on above: Performed By: #### E GFR #### [address] [address] Bili Total 0.5 mg/dL Normal 0.3-1.0 [facility] Comment on above: Performed By: #### E GFR #### [address] [address] Calcium [Mass/Vol] 8.7 mg/dL Normal 8.6-10.3 [facility] Comment on above: Performed By: #### E GFR #### [address] [address] Chloride 101 IU/L Normal 98-107 [facility] Comment on above: Performed By: #### E GFR #### [address] [address] CO2 [Moles/Vol] 27 mmol/L Normal 21-31 [facility] Comment on above: Performed By: #### E GFR #### [address] [address] Creatinine [Mass/Vol] 1.0 mg/dL Normal 0.6-1.2 [facility] Comment on above: Performed By: #### E GFR #### [address] [address] Glucose [Mass/Vol] 160 mg/dL High 70-99 [facility] Comment on above: Performed By: #### E GFR #### [address] [address] Potassium [Moles/Vol] 3.3 mmol/L Low 3.4-4.8 [facility] Comment on above: Performed By: #### E GFR #### [address] [address] Protein [Mass/Vol] 6.6 g/dL Normal 6.0-8.3 [facility] Comment on above: Performed By: #### E GFR #### [address] [address] Sodium [Moles/Vol] 136 mmol/L Normal 136-145 [facility] Comment on above: Performed By: #### E GFR #### [address] [address] Urea nitrogen [Mass/Vol] 10 mg/dL Normal 7-25 [facility] Comment on above: Performed By: #### E GFR #### [facility] [address] [place] [address] Urea nitrogen/Creatinine [Mass ratio] 10.0 mg/mg Normal 10.0-20.0 [facility] Comment on above: Performed By: #### E GFR #### [facility] [address] [place] [id number] COMPREHENSIVE METABOLIC PANE Johan 01-22-2022 Albumin [Mass/Vol] 3.3 g/dL Normal 3.2-5.0 [facility] Comment on above: Performed By: #### M PC, LIP #### [facility] [address] Albumin/Globulin [Mass ratio] 0.9 {ratio} Normal [facility] Comment on above: Performed By: #### M PC, LIP #### [facility] [place] [id number] [facility] ALP [Catalytic activity/Vol] 71 U/L Normal 50-136 [facility] Comment on above: Performed By: #### M PC, LIP #### [facility] [address] [address] [facility] ALT [Catalytic activity/Vol] 44 U/L Normal 30-65 [facility] Comment on above: Performed By: #### M PC, LIP #### [facility] [place] [id number] [place] Anion gap [Moles/Vol] 15 mmol/L Normal 10-20 [facility] Comment on above: Performed By: #### M PC, LIP #### [facility] [address] [address] [place] AST [Catalytic activity/Vol] 23 U/L Normal 15-37 [facility] Comment on above: Performed By: #### M PC, LIP #### [facility] [place] [id number] [facility] Bilirubin [Mass/Vol] 0.5 mg/dL Normal 0.0-1.0 [facility] Comment on above: Performed By: #### M PC, LIP #### [facility] [address] [address] [facility] Calcium [Mass/Vol] 8.6 mg/dL Low 8.7-10.5 [facility] Comment on above: Performed By: #### M PC, LIP #### [facility] [address] [address] [facility] Chloride [Moles/Vol] 99 mmol/L Normal 99-111 [facility] Comment on above: Performed By: #### M PC, LIP #### [facility] [address] [address] [place] CO2 [Moles/Vol] 27 mmol/L Normal 21.0-32.0 [facility] Comment on above: Performed By: #### M PC, LIP #### [facility] [address] [address] [facility] Creatinine [Mass/Vol] 1.2 mg/dL Normal 0.5-1.2 [facility] Comment on above: Performed By: #### M PC, LIP #### [facility] [address] [address] [place] GFR/1.73 sq M.predicted among non-blacks MDRD (S/P/Bld) [Vol rate/Area] 52 mL/min/{1.73_m2} Normal >59 [facility] Comment on above: Performed By: #### M PC, LIP #### [facility] [address] [address] [place] Globulin (S) [Mass/Vol] 3.8 g/dL Normal 1.3-4.7 [facility] Comment on above: Performed By: #### M PC, LIP #### [facility] [address] [address] [place] Glucose [Mass/Vol] 209 mg/dL High 70-100 [facility] Comment on above: Performed By: #### M PC, LIP #### [facility] [address] [address] [place] Potassium [Moles/Vol] 4.0 mmol/L Normal 3.5-5.0 [facility] Comment on above: Performed By: #### M PC, LIP #### [facility] [address] Protein [Mass/Vol] 7.1 g/dL Normal 6.0-8.5 [facility] Comment on above: Performed By: #### M PC, LIP #### [facility] [address] Sodium [Moles/Vol] 137 mmol/L Normal 137-147 [facility] Comment on above: Performed By: #### M PC, LIP #### [facility] [address] Urea nitrogen [Mass/Vol] 11 mg/dL Normal 7-22 [facility] Comment on above: Performed By: #### M PC, LIP #### [facility] [address] Urea nitrogen/Creatinine [Mass ratio] 9.2 mg/mg Normal 6-25 [facility] Comment on above: Performed By: #### M PC, LIP #### [facility] [address] Abdomen / Pelvis W/O Cont on 01-22-2022 CT Abdomen / Pelvis W/O Cont [place] [id number] SCAN Name: NICKI OVIEDO Pt Type: REG ER MR #: [id number] Room & Bed: Date of : 1975 Date of Service: 01/22/22 Age: 46 Ordering Doctor: Austen Rojas MD Sex: Female Family Doctor: Miscellaneous Physician Order #: [id number] Dictating Doctor: Owen Clements MD Admit Date: Referring Doctor: Other Doctor: Additional Copies: === WHRPT:HIE EXAM: CT Abdomen / Pelvis W/O Cont 01/22/2022 2:03 AM EDT KRZYSZTOF CLINICAL STATEMENT: pain Crohn's disease COMPARISON: 04/09/2021 TECHNIQUE: Helically acquired images were obtained of the abdomen and pelvis without IV contrast. No oral contrast was administered. AEC is utilized. 2-D reconstructed images are provided. FINDINGS: Hepatomegaly with fatty infiltration of the liver. Cholecystectomy. Bilateral nonobstructive renal calculi measuring up to 7 mm on the left and 5 mm on the right. There is no hydronephrosis or hydroureter. The upper abdominal solid organs are unremarkable. There is no bowel obstruction or free air. There is no ascites. There is no evidence of aortic aneurysm. There is no retroperitoneal adenopathy. There is no appendicitis. Sigmoid diverticulosis without acute diverticulitis. There are no pelvic masses or loculated fluid collections. The uterus and bladder unremarkable. The lung bases are clear. There are no destructive bone lesions identified. IMPRESSION: Hepatomegaly with fatty infiltration of the liver. Bilateral nonobstructive renal calculi measuring up to 7 mm on the left and 5 mm on the right. No hydronephrosis or hydroureter. Sigmoid diverticulosis without acute diverticulitis. FOLLOW-UP: Follow-up as clinically indicated. THIS REPORT HAS BEEN ELECTRONICALLY SIGNED BY: 01/22/2022 03:45: Owen Clements MD 01/22/22 0348 DICTATED BY: Owen Clements MD CC: CONFIDENTIALITY NOTICE: This report is for the sole use of the intended recipient and may contain confidential and privileged information. Any unauthorized review, use, disclosure or distribution is prohibited. If you are not the intended recipient, please contact [facility] at [phone] and destroy all copies of the original. Normal [facility] Diff Autoon 01-22-2022 Baso Absolute 0.0 x10*3/mcL Normal 0.0-0.2 [facility] Comment on above: Performed By: #### . Automated Diff #### [address] [address] Basophils/100 WBC (Bld) 0.5 % Normal 0.0-1.5 [facility] Comment on above: Performed By: #### . Automated Diff #### [place] [address] Eos Absolute 0.0 x10*3/mcL Normal 0.0-0.4 [facility] Comment on above: Performed By: #### . Automated Diff #### [place] [address] Eosinophils/100 WBC (Bld) 0.3 % Normal 0.0-5.4 [facility] Comment on above: Performed By: #### . Automated Diff #### [place] [address] Lymph Absolute 1.8 x10*3/mcL Normal 1.0-4.8 [facility] Comment on above: Performed By: #### . Automated Diff #### [place] [address] Lymphocytes/100 WBC (Bld) 29.7 % Normal 27.2-40.8 [facility] Comment on above: Performed By: #### . Automated Diff #### [place] [address] [place] Absolute 0.5 x10*3/mcL Normal 0.1-1.1 [facility] Comment on above: Performed By: #### . Automated Diff #### [place] [address] Monocytes/100 WBC (Bld) 8.9 % Normal 3.7-11.9 [facility] Comment on above: Performed By: #### . Automated Diff #### [place] [address] Neutro Absolute 3.6 x10*3/mcL Normal 1.8-7.7 [facility] Comment on above: Performed By: #### . Automated Diff #### [place] [address] Neutro Auto 60.6 % Normal 47.2-70.8 [facility] Comment on above: Performed By: #### . Automated Diff #### [place] [address] ED Clinical Summaryon 2021 ED Clinical Summary [address] [address] ED Clinical Summary Person Information Name: Nicki Oviedo/[place] Age: 46 Years : 1975 Sex: Female PCP: Marital Status: Single Phone: Race: White Ethnicity: Not or Language: [place] Visit Reason: Abdominal pain; Medical problem Acuity: 3 Enc Type: Emergency Med Service: Emergency Medicine Arrival: 01/21/2022 23:01:44 Discharge: 01/22/2022 00:21:00 LOS: 000 01:20 Checkin: 01/21/2022 23:01:44 Checkout: 01/22/2022 00:21:00 Dispo Type: Home or Self Care Address: [address] [place] [address] Provider Notes: History of Present Illness Patient presents to the ED with complaints of pain in the R mid lateral abdomen today.? She notes the pain radiates the R upper and lower abdomen.? She notes occasional loose stools.? She states these Sx are similar to those experienced with prior flares of her Crohn's disease.? She resides in [place] and states her implementation advisor is Dr. Arias in [place], [place].? She states she had a colonoscopy there Review of Systems GENERAL: Negative for fever, chills EYES:?Negative for?acute changes NECK: Negative for pain CARDIOVASCULAR: Negative for chest pain RESPIRATORY: Negative for shortness of breath, cough ABDOMEN/GI:?+ for abdominal pain.? Negative for vomiting, diarrhea BACK: Negative for pain MUSCULOSKELETAL: Negative for acute pain and swelling SKIN: Negative for?rash, discoloration NEURO: Negative for headache, focal weakness, acute numbness, acute tingling Physical Exam CONSTITUTIONAL: Patient is awake and alert.? She is walking briskly in the ED.? Smiling and talkative. HEAD: Normocephalic, atraumatic HEENT: Moist mucus membranes, oropharynx clear EYES: Pupils are equally round and reactive to light, lids and lashes normal, clear conjunctiva, non-icteric sclera.? No drainage NECK: Trachea midline, external neck normal, supple, no nuchal rigidity or meningismus PULMONARY: Clear to auscultation bilaterally with equal sounds.? Normal rate and effort CARDIOVASCULAR: Regular rate and?rhythm. GASTROINTESTINAL: Soft, + tenderness in the R mid lateral abdomen, normal bowel sounds, no rebound or guarding BACK: No flank tenderness SKIN: Warm and dry, no evidence of cellulitis.? No petechiae MUSCULOSKELETAL: Extremities without acute deformity.? No edema or tenderness.? No midline C/T/L spine tenderness.? Normal distal pulses and cap refill.? NEUROLOGIC:?No gross motor or sensory deficits.? Normal tone.? Normal coordination.? PSYCHIATRIC: Normal mood and affect Diagnosis: 1:Abdominal pain Problems No Problems Documented Smoking Status: Functional Status: Sensory Deficits: History of Falls: Mobility Assistance Prior to Admission: ADLs: Current Level of Assistance for Self-Care/Mobility: Cognitive Status: Allergies NSAIDs (swelling) Compazine (shakiness) Phenergan (Shakiness) Reglan (Shakiness) contrast media (gadolinium-based) (itching) Laboratory or Other Results This Visit (last charted value for your 01/21/2022 visit) Hematology 01/21/2022 11:25 PM WBC: 6.0 x10 RBC: 4.44 x10 Neutro Auto: 60.6 % -- Normal range between ( 47.2 and 70.8 ) Lymph Auto: 29.7 % -- Normal range between ( 27.2 and 40.8 ) [place] Auto: 8.9 % -- Normal range between ( 3.7 and 11.9 ) Eos Auto: 0.3 % -- Normal range between ( 0.0 and 5.4 ) Basophil Auto: 0.5 % -- Normal range between ( 0.0 and 1.5 ) Baso Absolute: 0.0 x10 MCV: 85.8 fL -- Normal range between ( 80.0 and 100.0 ) MCHC: 33.3 % -- Normal range between ( 31.0 and 37.0 ) Lymph Absolute: 1.8 x10 Hct: 38.1 % -- Normal range between ( 36.0 and 46.0 ) [place] Absolute: 0.5 x10 MCH: 28.5 pg -- Normal range between ( 27.0 and 35.0 ) Neutro Absolute: 3.6 x10 Hgb: 12.7 g/dL -- Normal range between ( 12.0 and 16.0 ) Mean Platelet Volume: 7.3 fL -- Normal range between ( 7.5 and 11.5 ) Platelet: 276 x10 Eos Absolute: 0.0 x10 RDW: 14.3 % -- Normal range between ( 11.6 and 14.8 ) Urinalysis 01/21/2022 11:25 PM UA Color: Yellow UA Urobilinogen: 0.2 mg/dL UA Bili: Negative UA Ketones: Negative mg/dL UA Leukocyte Esterase: Negative UA Nitrite: Negative UA Glucose: Negative mg/dL UA Bacteria: Absent /HPF UA Protein: Negative mg/dL UA Blood: Negative UA Spec Grav: 1.015 -- Normal range between ( 1.003 and 1.035 ) UA pH: 5.5 UA Clarity: Clear UA Source: Clean Catch UA WBC Qual: Rare /HPF UA RBC Qual: Absent /HPF UA Squepi Cells Qual: Rare /HPF Chemistry 01/21/2022 11:25 PM Creatinine Lvl: 1.0 mg/dL -- Normal range between ( 0.6 and 1.2 ) BUN: 10 mg/dL -- Normal range between ( 7 and 25 ) Glucose Lvl: 160 mg/dL -- Normal range between ( 70 and 99 ) Potassium Lvl: 3.3 mmol/L -- Normal range between ( 3.4 and 4.8 ) AST: 20 IU/L -- Normal range between ( 13 and 39 ) ALT: 34 (more content not included)... Normal [facility] ED Note-Physicianon 01-23-20 22 ED Note-Physician Chief Complaint abdominal pain History of Present Illness Patient presents to the ED with complaints of pain in the R mid lateral abdomen today. She notes the pain radiates the R upper and lower abdomen. She notes occasional loose stools. She states these Sx are similar to those experienced with prior flares of her Crohn's disease. She resides in [place] and states her implementation advisor is Dr. Arias in [place], [place]. She states she had a colonoscopy there Review of Systems GENERAL: Negative for fever, chills EYES: Negative for acute changes NECK: Negative for pain CARDIOVASCULAR: Negative for chest pain RESPIRATORY: Negative for shortness of breath, cough ABDOMEN/GI: + for abdominal pain. Negative for vomiting, diarrhea BACK: Negative for pain MUSCULOSKELETAL: Negative for acute pain and swelling SKIN: Negative for rash, discoloration NEURO: Negative for headache, focal weakness, acute numbness, acute tingling Physical Exam CONSTITUTIONAL: Patient is awake and alert. She is walking briskly in the ED. Smiling and talkative. HEAD: Normocephalic, atraumatic HEENT: Moist mucus membranes, oropharynx clear EYES: Pupils are equally round and reactive to light, lids and lashes normal, clear conjunctiva, non-icteric sclera. No drainage NECK: Trachea midline, external neck normal, supple, no nuchal rigidity or meningismus PULMONARY: Clear to auscultation bilaterally with equal sounds. Normal rate and effort CARDIOVASCULAR: Regular rate and rhythm. GASTROINTESTINAL: Soft, + tenderness in the R mid lateral abdomen, normal bowel sounds, no rebound or guarding BACK: No flank tenderness SKIN: Warm and dry, no evidence of cellulitis. No petechiae MUSCULOSKELETAL: Extremities without acute deformity. No edema or tenderness. No midline C/T/L spine tenderness. Normal distal pulses and cap refill. NEUROLOGIC: No gross motor or sensory deficits. Normal tone. Normal coordination. PSYCHIATRIC: Normal mood and affect Vitals & Measurements T: 36.9 ?C (Oral) HR: 77 (Peripheral) HR: 77 (Monitored) RR: 20 BP: 136/99 SpO2: 98% Additional Vitals No qualifying data available. Procedure No qualifying data available. ASA Documentation Medical Decision Making Improved in the ED. Appears well, NAD. ED return precautions reviewed and follow up plan discussed. Patient counseled that if Sx change, continue, or worsen that they should contact their physician or go to the ED immediately. Assessment/Plan 1. Abdominal pain Orders: predniSONE, 3 tabs, Oral, Daily, X 5 days, # 15 tabs, 0 Refill(s), 01/26/22 23:59:00 EDT, Pharmacy: [facility][id number] - ED Professional Level 4 Communication Order Discharge Patient Peripheral IV Insert and Maintain Refresh vitals and sections below: Problem List/Past Medical History Ongoing No qualifying data Historical No qualifying data Medications Inpatient No active inpatient medications Home dicyclomine 10 mg oral capsule, 20 mg= 2 caps, Oral, QID escitalopram 10 mg oral tablet, 10 mg= 1 tabs, Oral, Daily lisinopril 10 mg oral tablet, 10 mg= 1 tabs, Oral, Daily oxyCODONE-acetaminoph en 10 mg-325 mg oral tablet, 1 tabs, Oral, q8hr tiZANidine 4 mg oral tablet, 4 mg= 1 tabs, Oral, HS (at bedtime) traMADol 50 mg oral tablet, 50 mg= 1 tabs, Oral, q6hr, PRN traZODone 150 mg oral tablet, 150 mg= 1 tabs, Oral, HS (at bedtime) Zofran 4 mg oral tablet, 4 mg= 1 tabs, Oral, q8hr, PRN Zofran ODT 4 mg oral tablet, disintegrating, 4 mg= 1 tabs, Oral, TID, PRN Allergies Compazine (shakiness) NSAIDs (swelling) Phenergan (Shakiness) Reglan (Shakiness) contrast media (gadolinium-based) (itching) Social History Alcohol Never Substance Abuse Denies All Tobacco Never (less than 100 in lifetime) Use:. Lab Results Automated Hematology LATEST RESULTS HISTORICAL RESULTS WBC 01/21/22 23:25 6.0 11/08/21 4.6 RBC 01/21/22 23:25 4.44 11/08/21 4.22 Hgb 01/21/22 23:25 12.7 11/08/21 12.0 Hct 01/21/22 23:25 38.1 11/08/21 36.1 MCV 01/21/22 23:25 85.8 11/08/21 85.7 MCH 01/21/22 23:25 28.5 11/08/21 28.5 MCHC 01/21/22 23:25 33.3 11/08/21 33.3 RDW 01/21/22 23:25 14.3 11/08/21 15.3 High Platelet 01/21/22 23:25 276 11/08/21 212 Mean Platelet Volume 01/21/22 23:25 7.3 Low 11/08/21 7.0 Neutro Auto 01/21/22 23:25 60.6 11/08/21 65.6 Lymph Auto 01/21/22 23:25 29.7 11/08/21 21.6 Low [place] Auto 01/21/22 23:25 8.9 11/08/21 11.2 Eos Auto 01/21/22 23:25 0.3 11/08/21 1.1 Basophil Auto 01/21/22 23:25 0.5 05/24/22 0.5 Neutro Absolute 01/21/22 23:25 3.6 11/08/21 3.0 Lymph Absolute 01/21/22 23:25 1.8 11/08/21 1.0 [place] Absolute 01/21/22 23:25 0.5 11/08/21 0.5 Eos Absolute 01/21/22 23:25 0.0 11/08/21 0.0 Baso Absolute 01/21/22 23:25 0.0 11/08/21 0.0 Testing LATEST RESULTS HISTORICAL RESU (more content not included)... Normal [facility] LIPASEon 01-22-2022 Lipase [Catalytic activity/Vol] 119 U/L Normal 114-286 [facility] Comment on above: Performed By: #### M PC, LIP #### [facility] [address] Lipaseon 01-22-2022 Lipase Lvl 30 IU/L Normal 11-82 [facility] Comment on above: Performed By: #### L IP #### [place] [address] Microscopic observation LM N om (Urine sed)on 01-22-2022 Bacteria LM Ql (Urine sed) None Seen Normal Trace [facility] Comment on above: Performed By: #### 1 5-, [id number] ####[facility] LAB[facility]ATORY[address] [address] [facility] Epithelial cells Ql (U) 5-10 Normal 0-5 [facility] Comment on above: Performed By: #### 1 2234-, 40544-5 ####[facility]ATORY[address] [address] RBC Ql (U) None Seen Normal 0-3 [facility] Comment on above: Performed By: #### 1 2235-01, 43967-8 ####CLINICAL [address] [address] [facility] WBC Visual Ql (U) 0-5 Normal 0-5 [facility] Comment on above: Performed By: #### 1 2234-, 53360-4 ####[place] [id number] [place] [id number] [facility] Physician Documentationon Physician Documentation [address] [address] Medical Records Department ED Physician Documentation Name: NICKI OVIEDO Pt Type: DEP ER MR #: [id number] Room AND Bed: Date of : 1975 Date of Service: 01/22/22 Age: 46 Ordering Doctor: Sex: Female Family Doctor: Miscellaneous Physician Order #: Dictating Doctor: Austen Rojas MD Admit Date: Referring Doctor: Other Doctor: Additional Copies: === ED HPI General Medical General Adult HPI Chief Complaint Abdominal Pain Stated Complaint CROHN'S FLAIR UP Time Seen by Provider 01/22/22 01:45 Information Source Patient Limitations No Limitations History of Present Illness HPI Narrative Patient presents to the ED complaining of abdominal pain nausea vomiting diarrhea. Started feeling sick yesterday. She says she has Crohn's disease. States that symptoms have been worsening. Review of Systems - ED ROS All Systems reviewed and negative Except as Stated Constitutional Denies fever or chills Cardiovascular Denies chest pain or palpitations Respiratory Denies cough or dyspnea Gastrointestinal Reports abdominal pain, nausea, vomiting and diarrhea; Denies constipation Genitourinary Denies dysuria or hematuria Musculoskeletal Denies arthralgia or myalgia Integumentary Denies rash or lesions Neurological Denies weakness or numbness Allergies/Adverse Reactions NSAIDS (Non-Steroidal Anti-Inflamma Allergy (Verified 01/22/22 01:31) Anaphylaxis prochlorperazine [From Compazine] Allergy (Verified 01/22/22 01:31) Rash promethazine [From Phenergan] Allergy (Verified 01/22/22 01:31) Dizziness iv dye Allergy (Uncoded 09/12/20 21:31) Itching Home Medications Home Medications escitalopram oxalate 10 mg tablet (Lexapro) 10 mg PO DAILY 09/12/20 [Confirmed 01/22/22] mesalamine 400 mg tablet,delayed release 800 mg PO TID 09/12/20 [Confirmed 01/22/22] tizanidine 4 mg capsule (Zanaflex) 4 mg PO TID 09/12/20 [Confirmed 01/22/22] trazodone 150 mg tablet 150 mg PO BEDTIME 09/12/20 [Confirmed 01/22/22] oxycodone-acetaminoph en 10 mg-325 mg tablet (Percocet) 1 tab PO Q8H PRN Pain 01/22/22 [Confirmed 01/22/22] semaglutide 0.25 mg or 0.5 mg (2 mg/1.5 mL) subcutaneous pen injector (Ozempic) 0.75 mg subcut QWEEK 01/22/22 [Confirmed 01/22/22] Past Medical History Medical History (Updated 01/22/22 @ 04:14 by Austen Rojas MD) Acute Crohn's disease (Medical) K50.90 Diabetes (Medical) E11.9 Endometriosis (Medical) N80.9 Hypertension (Medical) I10 Past Surgical History Surgical History (Updated 01/22/22 @ 01:31 by Laura Martínez) Hx of appendectomy (Surgical) Z90.49 Hx of cardiac cath (Surgical) Z98.890 Hx of cholecystectomy (Surgical) Z90.49 Hx of unilateral oophorectomy (Surgical) Z90.721 rt Past Social History Marital Status: Single Chewing Tobacco Status: Never Smoking Status: Never Smoker Use of E-cigs or Vaps (if yes, for how long or when did you quit): No Alcohol Use: Never Recreational Drug Use: Never Physical Exam Initial Vital Signs Vital Signs First Set: Vital Signs First Set Temp Pulse Pulse Ox O2 Del Method 97.6 F 81 97 01/22/22 01:14 01/22/22 01:14 01/22/22 01:14 01/22/22 01:14 General Limitations: Present No Limitations General Appearance: Present Alert and In No Apparent Distress Head Head: Present Atraumatic and Normocephalic Eye Eye Exam: Present PERRL and EOMI ENT ENT Exam: Present no evidence of ENT injury and Normal Nose Neck Neck: Present supple and normal inspection Chest Chest Exam: Present Normal Inspection and Symmetric Chest Wall Rise Respiratory Respiratory Exam: Present Normal Lung Sounds; Not Present Respiratory Distress Cardiovascular Cardiovascular/Chest: Present normal peripheral pulses, regular rate, rhythm, no edema and no murmur Abdominal Exam Abdominal Exam: Present normal bowel sounds and tenderness Extremities Exam Extremity Exam: Present Normal Inspection and Full ROM Neurological Exam Neurological Exam: Present Alert, Oriented X3 and CN II-XII Intact Psychiatric Psychiatric Exam: Present Normal Affect and Normal Mood Skin Skin Exam: Present Warm/dry; Not Present Rash Course Vital Signs Last Vital Signs: Vital Signs - (Last Results) Temperature 97.6 F 01/22/22 01:14 Pulse Rate 79 01/22/22 04:37 Respiratory Rate 18 01/22/22 04:37 Blood Pressure 149/87 H 01/22/22 04:37 Pulse Oximetry 95 01/22/22 04:37 Oxygen Delivery Method 01/22/22 04:37 Medications Medications Adminstered: Medications Adminstered Discontinued Medications Diphenhydramine HCl (Diphenhydramine 50 Mg/Ml Vial) 25 mg IVPUSH GURPREET ONE Stop: 01/22/22 02:53 Last Admin: 01/22/22 02:56 Dose: 25 mg Documented By: SLRena Methylprednisolone Sodium Succinate (Methylprednisolone So (more content not included)... Normal [facility] UA w Culture if Ind Rosa Elena Color (U) Yellow Normal [facility] Comment on above: Performed By: #### E GFR #### [address] [address] Glucose (U) [Mass/Vol] Negative Normal Negative [facility] Comment on above: Performed By: #### E GFR #### [address] [address] Ketones Ql (U) Negative Normal Negative [facility] Comment on above: Performed By: #### E GFR #### [address] [address] UA Blood Negative Normal Negative [facility] Comment on above: Performed By: #### E GFR #### [address] [address] UA Clarity Clear Normal [facility] Comment on above: Performed By: #### E GFR #### [address] [address] UA Leukocyte Esterase Negative Normal Negative [facility] Comment on above: Performed By: #### E GFR #### [address] [address] UA Nitrite Negative Normal Negative [facility] Comment on above: Performed By: #### E GFR #### [address] [address] UA pH 5.5 Normal 4.5 - 7.8 [facility] Comment on above: Performed By: #### E GFR #### [address] [address] UA Protein Negative Normal Negative [facility] Comment on above: Performed By: #### E GFR #### [address] [address] UA Source Clean Catch Normal [facility] Comment on above: Performed By: #### E GFR #### [address] [address] UA Spec Grav 1.015 Normal 1.003-1.035 [facility] Comment on above: Performed By: #### E GFR #### [address] [address] UA Urobilinogen 0.2 mg/dL Normal 0.2 - 1.0 [facility] Comment on above: Performed By: #### E GFR #### [address] [address] Urobilinogen (U) [Mass/Vol] Negative Normal Negative [facility] Comment on above: Performed By: #### E GFR #### [address] [address] Urinalysis dipstick panel Au to test strip (U)on 01-22-2022 Appearance (U) CLEAR Normal Clear [facility] Comment on above: Performed By: #### 1 8, 11752-0 ####[facility] [address] [place] Bilirubin Ql (U) Negative Normal Negative [facility] Comment on above: Performed By: #### 1 2235-01, 54665-0 ####[facility] [address] [place] Color (U) Light Yellow Normal Yellow [facility] Comment on above: Performed By: #### 1 2235-01, 38398-2 ####[address] [address] [facility] Glucose Ql (U) Negative Normal Negative [facility] Comment on above: Performed By: #### 1 2235-01, 36027-3 ####[address] [address] [facility] Ketones Auto test strip Ql (U) Negative Normal Negative [facility] Comment on above: Performed By: #### 1 2235-01, 39304-1 ####[address] [address] [facility] Leukocyte esterase Auto test strip Ql (U) TRACE Abnormal Negative [facility] Comment on above: Performed By: #### 1 2235-01, 52249-0 ####[address] [address] [facility] Nitrate Ql (U) Negative Normal Negative [facility] Comment on above: Performed By: #### 1 2235-01, 16149-4 ####[address] [address] [facility] pH (U) 6.0 [pH] Normal 5.0-8.5 [facility] Comment on above: Performed By: #### 1 2235-01, 04844-2 ####[address] [address] [facility] Protein Ql (U) Negative Normal Negative [facility] Comment on above: Performed By: #### 1 2235-01, 01617-9 ####[address] [address] [facility] RBC Ql (U) Negative Normal Negative [facility] Comment on above: Performed By: #### 1 2235-01, 55191-1 ####[address] [address] [facility] SPECIFIC GRAVITY,URINE 1.015 Normal 1.005-1.030 [facility] Comment on above: Performed By: #### 1 2235-01, 62624-7 ####[address] [address] [facility] Urinalysis dipstick W Reflex Culture panel (U) Normal [facility] Comment on above: Result Comment: IF T HE DIPSTICK NITRITE IS POSITIVE AND/OR GREATER THAN 5 WBC'S ARE SEEN MICROSCOPICALLY, THEN A URINE CULTURE IS ORDERED AND REPORTED Performed By: #### 1 2235-8, 65773-6 ####[facility] [address] [facility] Urobilinogen Ql (U) 0.2 Normal [facility] Comment on above: Performed By: #### 1 5-8, 30602-3 ####[facility] [address] [facility] CBC AND DIFFERENTIALon 12-16 % AUTOMATED IMMATURE GRAN 0.5 % Normal 0.0 - 0.9 [facility] Comment on above: Result Comment: Renita ture Granulocyte Count (IG) includes promyelocytes, myelocytes and metamyelocytes but does not include bands. Percent differential counts (%) should be interpreted in the context of the absolute cell counts (cells/L). Performed By: #### L ACT #### [address] [id number] Basophils (Bld) [#/Vol] 0.02 10*3/uL Normal 0.00 - 0.1 0 [facility] Comment on above: Performed By: #### L ACT #### [address] [id number] Basophils/100 WBC (Bld) 0.2 % Normal 0.0 - 2.0 [facility] Comment on above: Performed By: #### L ACT #### [address] [id number] Erythrocyte distribution width (RBC) [Ratio] 14.4 % Normal 11.5 - 14.5 [facility] Comment on above: Performed By: #### L ACT #### [address] [id number] Hematocrit (Bld) [Volume fraction] 39.7 % Normal 36.0 - 46.0 [facility] Comment on above: Performed By: #### L ACT #### [address] [id number] Hemoglobin (Bld) [Mass/Vol] 13.1 g/dL Normal 12.0 - 16.0 [facility] Comment on above: Performed By: #### L ACT #### [address] [id number] Lymphocytes (Bld) [#/Vol] 1.42 10*3/uL Normal 1.20 - 4.80 [facility] Comment on above: Performed By: #### L ACT #### [address] [id number] Lymphocytes/100 WBC (Bld) 15.3 % Normal 13.0 - 44.0 [facility] Comment on above: Performed By: #### L ACT #### [address] [id number] MCHC (RBC) [Mass/Vol] 33.0 g/dL Normal 32.0 - 36.0 [facility] Comment on above: Performed By: #### L ACT #### [address] [id number] MCV (RBC) [Entitic vol] 85 fL Normal 80 - 100 [facility] Comment on above: Performed By: #### L ACT #### [address] [id number] Monocytes (Bld) [#/Vol] 0.74 10*3/uL Normal 0.10 - 1.0 0 [facility] Comment on above: Performed By: #### L ACT #### [address] [id number] Monocytes/100 WBC (Bld) 8.0 % Normal 2.0 - 10.0 [facility] Comment on above: Performed By: #### L ACT #### [address] [id number] Neutrophils (Bld) [#/Vol] 7.04 10*3/uL Normal 1.20 - 7.70 [facility] Comment on above: Performed By: #### L ACT #### [address] [id number] Neutrophils/100 WBC (Bld) 76.0 % Normal 40.0 - 80.0 [facility] Comment on above: Performed By: #### L ACT #### [address] [id number] Platelets (Bld) [#/Vol] 309 10*3/uL Normal 150 - 450 [facility] Comment on above: Performed By: #### L ACT #### [address] [id number] RBC 4.68 x10E12/L Normal 4.00 - 5.20 [facility] Comment on above: Performed By: #### L ACT #### [address] [id number] WBC (Bld) [#/Vol] 9.3 10*3/uL Normal 4.4 - 11.3 [facility] Comment on above: Performed By: #### L ACT #### [address] [id number] COMPREHENSIVE PANELon 2021 Albumin [Mass/Vol] 4.1 g/dL Normal 3.4 - 5.0 [facility] Comment on above: Performed By: #### L ACT #### [address] [id number] ALP [Catalytic activity/Vol] 53 U/L Normal 33 - 110 [facility] Comment on above: Performed By: #### L ACT #### [address] [id number] ALT [Catalytic activity/Vol] 26 U/L Normal 7 - 45 [facility] Comment on above: Result Comment: Deisy ents treated with Sulfasalazine may generate falsely decreased results for ALT. Performed By: #### L ACT #### [address] [id number] Anion gap [Moles/Vol] 12 mmol/L Normal 10 - 20 [facility] Comment on above: Performed By: #### L ACT #### [address] [id number] AST [Catalytic activity/Vol] 13 U/L Normal 9 - 39 [facility] Comment on above: Performed By: #### L ACT #### [address] [id number] Bilirubin [Mass/Vol] 0.6 mg/dL Normal 0.0 - 1.2 [facility] Comment on above: Performed By: #### L ACT #### [address] [id number] Calcium [Mass/Vol] 8.9 mg/dL Normal 8.6 - 10.3 [facility] Comment on above: Performed By: #### L ACT #### [address] [id number] Chloride [Moles/Vol] 102 mmol/L Normal 98 - 107 [facility] Comment on above: Performed By: #### L ACT #### [address] [id number] Creatinine [Mass/Vol] 0.89 mg/dL Normal 0.50 - 1.05 [facility] Comment on above: Performed By: #### L ACT #### [address] [id number] GFR/1.73 sq M.predicted among non-blacks MDRD (S/P/Bld) [Vol rate/Area] 82 mL/min/{1.73_m2} Normal >90 [facility] Comment on above: Result Comment: CALC ULATIONS OF ESTIMATED GFR ARE PERFORMED USING THE 2020 CKD-EPI STUDY REFIT EQUATION WITHOUT THE RACE VARIABLE FOR THE IDMS-TRACEABLE CREATININE METHODS. https://jasn.asnjournals.org/content//ASN.2020 517241 Performed By: #### L ACT #### [address] [id number] Glucose [Mass/Vol] 141 mg/dL High 74 - 99 [facility] Comment on above: Performed By: #### L ACT #### [address] [id number] HCO3 (Bld) [Moles/Vol] 26 mmol/L Normal 21 - 32 [facility] Comment on above: Performed By: #### L ACT #### [address] [id number] Potassium [Moles/Vol] 3.8 mmol/L Normal 3.5 - 5.3 [facility] Comment on above: Performed By: #### L ACT #### [address] [id number] Protein [Mass/Vol] 7.0 g/dL Normal 6.4 - 8.2 [facility] Comment on above: Performed By: #### L ACT #### [address] [id number] Sodium [Moles/Vol] 136 mmol/L Normal 136 - 145 [facility] Comment on above: Performed By: #### L ACT #### [address] [id number] Urea nitrogen [Mass/Vol] 15 mg/dL Normal 6 - 23 [facility] Comment on above: Performed By: #### L ACT #### [address] [id number] CORONAVIRUS 2019 BY PCRon SARS-CoV-2 (COVID-19) RNA MIGUEL+probe Ql (Unsp spec) Not detected Normal Not Detected [facility] Comment on above: Result Comment: . This test has received FDA Emergency Use Authorization (EUA) and has been verified by [facility]. This test is only authorized for the duration of time that circumstances exist to justify the authorization of the emergency use of in vitro diagnostic tests for the detection of SARS-CoV-2 virus and/or diagnosis of COVID-19 infection under section 564(b)(1) of the Act, 21 U.S.C. 360bbb-3(b)(1), unless the authorization is terminated or revoked sooner. [facility] is certified under CLIA-88 as qualified to perform high complexity testing. Testing is performed in the [facility] laboratory located at [address] [place] [address]. SARS-CoV-2/Flu/RSV Multiplex Test: Fact sheet for providers: https://www.fda.gov/media/037286/download Fact sheet for patients: https://www.fda.gov/media/254298/download Performed By: #### L ACT #### [address] [id number] Lab Specimen Source Nasal, Nasopharyngeal Normal [facility] Comment on above: Performed By: #### L ACT #### [address] [id number] [address] ABDOMEN AND PELVIS W IV C [facility] 12-16-2021 CT ABDOMEN AND PELVIS W IV CONTRAST STUDY: CT Abdomen and Pelvis with IV Contrast; 12/16/2021, 2:10 AM. INDICATION: Generalized abdominal pain with nausea, vomiting, and diarrhea. Additional History: Right oophorectomy, cholecystectomy, appendectomy, hypertension, pancreatitis, endometriosis. COMPARISON: CT abdomen and pelvis 09/15/2021 (imaging only; report unavailable), CT abdomen and pelvis 06/08/2021. ACCESSION NUMBER(S): [id number] ORDERING CLINICIAN: MARTY NEVES PA-C TECHNIQUE: CT of the abdomen and pelvis was performed. Contiguous axial images were obtained at 3 mm slice thickness through the abdomen and pelvis. Coronal and sagittal reconstructions at 3 mm slice thickness were performed. Omnipaque 350 75 mL was administered intravenously. FINDINGS: LOWER CHEST: No cardiomegaly. No pericardial effusion. Lung bases are clear. ABDOMEN: LIVER: No hepatomegaly. Smooth surface contour. Hepatic steatosis. GALLBLADDER: Status post cholecystectomy with likely related pneumobilia in the liver. STOMACH: No abnormalities identified. PANCREAS: No masses or ductal dilatation. SPLEEN: No splenomegaly or focal splenic lesion. ADRENAL GLANDS: No thickening or nodules. KIDNEYS AND URETERS: Kidneys are normal in size and location. Nonobstructing bilateral nephrolithiasis. No ureteral calculi. PELVIS: BLADDER: No abnormalities identified. REPRODUCTIVE ORGANS: No abnormalities identified. BOWEL: No abnormalities identified. Appendix surgically absent. VESSELS: No abnormalities identified. Abdominal aorta is normal in caliber. PERITONEUM/RETROPERIT ONEUM/LYMPH NODES: No free fluid. No pneumoperitoneum. No lymphadenopathy. ABDOMINAL WALL: No abnormalities identified. SOFT TISSUES: No abnormalities identified. BONES: No acute fracture or aggressive osseous lesion. IMPRESSION: 1. No evidence of acute inflammatory process in the abdomen or pelvis. 2. Hepatic steatosis. 3. Bilateral nonobstructing nephrolithiasis. Signed by Yoon Joyce MD Electronically signed by: YOON JOYCE MD Normal [facility] Covid 19 Resultson 2 SARS-CoV-2 (COVID-19) RNA MIGUEL+probe Ql (Unsp spec) NEGATIVE COVID-19 Test Coronaviruses are common world-wide and are the cause of many common colds. SARS-COV2 is a new coronavirus that began circulating worldwide in 2019 so we are calling it COVID-19. It has been estimated that four out of five patients with COVID-19 will recover at home without the need for medical attention. Symptoms of COVID-19 may include cough, fever, shortness of breath, loss of taste or smell and other flu-like symptoms including chills, sore muscles, sore throat, and headache. Severe illness is more common in older people and people with other health problems such as high blood pressure, obesity, and immune system problems. If the test is positive, you have COVID-19. You will be contacted by the ordering physicians office and instructed to remain on home isolation, in accordance with CDC guidelines. You may also be contacted by the [facility] to see if any of your close contacts may have been exposed to the virus and need to quarantine. If the test is negative, you likely do not have COVID-19 at this time, but you still may have a different illness that can spread to other people (like Influenza, or the Flu) and could still be at risk for getting COVID-19. We recommend that you stay away from other people to limit the spread of illness until your symptoms are improving and you are fever-free for 24 hours without the use of fever lowering medications such as acetaminophen or ibuprofen. No test is 100% accurate so if you are still concerned you may have COVID-19, talk to your doctor about the need to continue to stay away from others. Medicines Unless your provider told you not to use the following: Acetaminophen (Tylenol and others) is generally safe. Anti-inflammatory medications, such as Ibuprofen (Advil or Motrin) or Naproxen (Aleve) can also be used. Kyrt-ojd-kregeie cough and cold medicines can be used according to the instructions on the package. Some dnqz-lmt-ayqblqf medicines also contain acetaminophen. Make sure you are not taking more than your recommended dose. For those not hospitalized, there is no specific treatment available for this illness. Antibiotics do not treat Coronaviruses. Follow-Up Follow up with your doctor by scheduling a virtual visit or consider follow-up at one of our urgent care fever clinics. If you are having difficulty breathing, or are very weak and having difficulty standing, this is a medical emergency. Call 911 or have someone take you to the nearest emergency room immediately. If possible, wear a facemask. Additional guidance from the CDC for patients who tested POSITIVE for COVID-19 How to isolate: Isolate yourself in a specific room at home and limit your contact with others. Use a separate bathroom from other members of the household, when possible. Leave home only to get essential medical care. Do not go to work, school or public areas. Avoid using public transportation, ride-sharing, or taxis. Restrict contact with pets and other animals. If you must care for your pet or be around animals while you are sick, wash your hands before and after your interaction and wear a facemask. Make sure that shared spaces in the home have good airflow, such as by an air conditioner or an opened window, weather permitting. Personal Hygiene Procedures: Wear a face mask when in the same room as other people or pets. If a face mask interferes with your breathing, others should wear a mask when sharing space with you. Frequent hand-washing: wash your hands with soap and water for at least 20 seconds. If soap and water are not available, use alcohol-based hand rig welder. Avoid touching your eyes, nose, and mouth with unwashed hands. Household Hygiene Procedures: Avoid sharing personal household items such as dishes, glassware, cups, eating utensils, towels or bedding with other people or pets in your home. After use, these items should be washed with soap and hot water. Disinfect all high-touch surfaces every day with antibacterial cleaning solutions such as Lysol wipes, bleach, cleansers, etc. High-touch surfaces include tabletops, doorknobs, bathroom fixtures, toilets, phones, keyboards, tablets and bedside tables. Immediately clean any surfaces that may have blood, poop or body fluids on them, using antibacterial cleaning solutions such as Lysol wipes, bleach, cleansers, etc. If clothing or bedding come into contact with blood, poop or body fluids, they should be washed immediately. Follow the directions on the laundry detergent and clothing labels but hot water is recommended when possible. Stopping home isolation precautions: If possible, consult your doctor before stopping home isolation precautions. According to the CDC, you can discontinue home isolation precautions when you have met both of these criteria: Your fever and respiratory symptoms have been gone for 24 gloria (more content not included)... Normal [facility] Electrocardiogram 12 Leadon 12-16-2021 Electrocardiogram 12 Lead Ventricular Rate 79 Atrial Rate 79 P-R Interval 160 QRS Duration 92 Q-T Interval 382 QTC Calculation(Bazett) 438 P Ingraham 54 R Ingraham 24 T Ingraham 67 QRS Count 13 Q Onset 210 P Onset 130 P Offset 185 T Offset 401 QTC Fredericia 418 Diagnosis Class Borderline Abnormal Diagnosis Sinus rhythm with premature atrial complexes Otherwise normal ECG No previous ECGs available Confirmed by Deidra Woods ([id number]) on 12/16/2021 2:53:21 PM Normal [facility] HCG,SERUM QUALITATIVEon HCG,SERUM QUALITATIVE Negative Normal Negative [facility] Comment on above: Performed By: #### L ACT #### [facility] [address], [place] [id number] LACTATEon 12-16-2021 Lactate [Moles/Vol] 1.3 mmol/L Normal 0.4 - 2.0 [facility] Comment on above: Result Comment: Delicia puncture immediately after or during the administration of Metamizole may lead to falsely low results. Testing should be performed immediately prior to Metamizole dosing. Performed By: #### L ACT #### [facility] [address], [place] [id number] LIPASEon 12-16-2021 Lipase [Catalytic activity/Vol] 119 U/L High 9 - 82 [facility] Comment on above: Result Comment: Delicia puncture immediately after or during the administration of Metamizole may lead to falsely low results. Testing should be performed immediately prior to Metamizole dosing. N-qsbidq-t-benzoquinone imine (metabolite of Acetaminophen) will generate erroneously low results in samples for patients that have taken toxic doses of acetaminophen. Performed By: #### L ACT #### [address] [id number] Provider Note - ED Care Kendrick sitionon 12-16-2021 Provider Note - ED Care Transition ED Care Transition: Chart Review: ED NOTES ED NOTES: Received signout of this patient 0100 hrs. pending CAT scan and reevaluation. Please see original note for history of present illness, past medical history, review of systems and physical exam RESULTS/VITAL SIGNS RESULTS: Recent Lab Results: I have reviewed these laboratory results: Urinalysis with Culture if Indicated 16-Dec-2021 02:35:00 ResultValue Color, Urine YELLOW Reference Range: STRAW,YELLOW Appearance, Urine CLEAR Specific [place], Urine <1.005 A pH, Urine 5.5 Protein, Urine NEGATIVE Glucose, Urine NEGATIVE Blood, Urine NEGATIVE Ketones, Urine NEGATIVE Bilirubin, Urine NEGATIVE Urobilinogen, Urine <2.0 Nitrite, Urine NEGATIVE Leukocyte Esterase, Urine NEGATIVE Complete Blood Count + Differential 16-Dec-2021 00:46:00 ResultValue White Blood Cell Count 9.3 Red Blood Cell Count 4.68 HGB 13.1 HCT 39.7 MCV 85 MCHC 33.0 PLT 309 RDW-CV 14.4 Neutrophil % 76.0 Immature Granulocytes % 0.5 Lymphocyte % 15.3 Monocyte % 8.0 Basophil % 0.2 Neutrophil Count 7.04 Lymphocyte Count 1.42 Monocyte Count 0.74 Basophil Count 0.02 Comprehensive Metabolic Panel 16-Dec-2021 00:46:00 ResultValue Glucose, Serum 141 H NA 136 K 3.8 CL 102 Bicarbonate, Serum 26 Anion Gap, Serum 12 BUN 15 CREAT 0.89 GFR Female 82 Calcium, Serum 8.9 ALB 4.1 ALKP 53 T Pro 7.0 T Bili 0.6 Alanine Aminotransferase, Serum 26 Aspartate Transaminase, Serum 13 Coronavirus 2019 by PCR 16-Dec-2021 00:46:00 ResultValue Fluid Source Nasal, Nasopharyngeal Coronavirus 2019,PCR NOT DETECTED Reference Range: Not Detected .This test has received FDA Emergency Use Authorization (EUA) and has been verified by [facility]. This test is only authorized for the duration of time that circumsta Lactate, Level 16-Dec-2021 00:46:00 ResultValue Lactate, Level 1.3 Lipase, Serum 16-Dec-2021 00:46:00 ResultValue Lipase, Serum 119 H HCG, Serum 16-Dec-2021 00:46:00 ResultValue HCG, Serum NEGATIVE Troponin I, High Sensitivity 16-Dec-2021 00:46:00 ResultValue Troponin I, High Sensitivity 3 VITAL SIGNS: T PRBP SpO2O2(LPM) %FiO2 Method 15-Dec-2021 22:09:[id number]/ 105 95 room air, no respiratory support MEDICAL DECISION MAKING/ED COURSE MDM/ED COURSE: Reevaluation of this patient at 4 AM demonstrates patient resting comfortably carefully reviewed laboratory and radiologic findings with patient demonstrating no evidence of acute abdominal process. Laboratory values demonstrate no evidence of pancreatitis. Strongly encourage patient to follow-up with primary care as needed or return here if condition worsens. 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 Patient is not requesting any take-home pain medication. CLINICAL IMPRESSION Diagnosis/Annotation: ED Dx Name:Abdominal pain Code:R10.9 Name:Nausea and vomiting Code:R11.2 Disposition: discharged Type: home ATTESTATION CRITICAL CARE TIME Is this a critically ill patient: no Electronic Signatures: Joseph Donovan (PAC) (Signed 16-Dec-2021 04:05) Authored: ED Notes, Results/Vital Signs, MDM/ED Course, Clinical Impression, Attestation, Chart Review, Scores Last Updated: 16-Dec-2021 04:05 by Joseph Donovan (PAC) Normal [facility] Provider Note - ED v3on 07-0 Provider Note - ED v3 Provider Note: Chart Review: ED NOTES ED NOTES: HPI: 46-year-old female presents the emergency department for abdominal pain, nausea, and several episodes of nonbloody vomiting and diarrhea that began earlier today. Patient states that she has a history of Crohn's and pancreatitis and believes that this is a flareup. She characterizes the pain as sharp and localizes to her right upper quadrant and right lower quadrant. She denies pain radiation or anything particular that makes the pain better or worse. Patient takes Percocet chronically and states that it has not been helping with her pain. She states that she was recently in the hospital in [place] where she is from and was diagnosed with a Crohn's flareup with pancreatitis. She was discharged on 12 December and states that she was doing well until she came here for holiday weekend. She says that they admitted her to the hospital for pain control, states that she was taking Dilaudid with relief. Patient states that her abdominal history is also consistent with endometriosis but does not feel that this is the case today. She denies taking any other medications prior to arrival. She denies injury or changes in activity. Denies the use of anticoagulants or history of heart or lung disease. Denies recent illnesses or exposure to sick contacts. She denies all other symptoms including fever, chills, headache, sore throat, cough, chest pain, shortness of breath, hemoptysis, flank pain, pelvic pain, hematuria, dysuria, hematochezia, melena, weakness and numbness. Denies vaginal bleeding or discharge. Her last menstrual cycle was the beginning of November. She denies any recent travel or changes in her water sources. Denies any recent use of antibiotic use. Denies any history of C. difficile, denies any foul smell to her diarrhea. Social Hx: Denies tobacco, alcohol, drug use. Medical Hx: Medical history significant for Crohn's, pancreatitis, endometriosis, and hypertension. Patient has an allergy to IV contrast but states that she can have it as long as she has Benadryl before hand. She also has an allergy to Compazine, Phenergan, and NSAIDs. Immunizations are up-to-date. Surgical HX: Appendectomy, cholecystectomy, right ovarian removal ROS Constitutional: Negative for lightheadedness, fatigue, anorexia, chills, diaphoresis, fever, weakness Eyes: Negative for lid swelling, pain, photophobia, redness, vision changes Ears: Negative for discharge, itching, hearing loss, pain, tinnitus Nose: Negative for congestion, discharge, nosebleeds, obstruction Mouth/teeth: Negative for mouth lesions, tooth trauma, toothache Throat/neck: Negative for sore throat, dysphagia, hoarseness, neck pain, neck stiffness Cardiovascular: Negative for chest pain, diaphoresis, peripheral edema, PND, orthopnea, palpitations Respiratory: Negative for cough, dyspnea, hemoptysis, pleuritic chest pain, wheezing Gastrointestinal: Positive for abdominal pain, nausea, vomiting, and diarrhea. Negative for bowel habit change, hematochezia, melena, or rectal pain. Genitourinary: Negative for dysuria, flank pain, frequency, hematuria, urgency, urine output changes Musculoskeletal: Negative for pain, sensory deficits, stiffness, weakness. Endocrine: Negative for weight changes, heat/cold intolerance, hot flashes, polydipsia, polyuria Integumentary: Negative for abrasions, dryness, hives, itching, jaundice, lesions, lumps, petechiae, pruritus, rash Neurological: Negative for headaches, altered mental status, dizziness, gait changes, LOC, extremity numbness, vertigo Psychiatric: Negative for anxiety, depression, hallucinations, insomnia, mood changes, Heme/lymph: Negative for anemia, easy bleeding, easy bruising, jaundice, night sweats, swollen lymph glands Review of systems is otherwise negative unless stated above or in history of present illness. Physical exam: Constitutional: Patient is obese and well-developed. Sitting comfortably in the room and in no distress. Patient appeared to be comfortable until I examined her abdomen. Nontoxic in appearance. Oriented to person, place, time, and situation. HEENT: Head is normocephalic, atraumatic. Patient's airway is patent. Tympanic membranes are clear bilaterally. Nasal mucosa clear. Mouth with normal mucosa. Throat is not erythematous and there are no oropharyngeal exudates, uvula is midline. No obvious facial deformities. Eyes: Clear bilaterally. Pupils are equal round and reactive to light and accommodation. Extraocular movements intact. Cardiac: Regular rate, regular rhythm. Heart sounds S1, S2. No murmurs, rubs, or gallops. PMI nondisplaced. No JVD. Respiratory: Regular respiratory rate and effort. Breath sounds are clear and equal bilaterally, no adventitious lung sounds. Patient is speaking in full sentences and is in no apparent respiratory distr (more content not included)... Normal [facility] TROPONIN I, HIGH SENSITIVITY on 12-16-2021 TROPONIN I, HIGH SENSITIVITY 3 ng/L Normal 0 - 13 [facility] Comment on above: Result Comment: . Less than 99th percentile of normal range cutoff- Female and children under 18 years old <14 ng/L; Male <21 ng/L: Negative Repeat testing should be performed if clinically indicated. . Female and children under 18 years old 14-50 ng/L; Male 21-50 ng/L: Consistent with possible cardiac damage and possible increased clinical risk. Serial measurements may help to assess extent of myocardial damage. . >50 ng/L: Consistent with cardiac damage, increased clinical risk and myocardial infarction. Serial measurements may help assess extent of myocardial damage. . NOTE: Children less than 1 year old may have higher baseline troponin levels and results should be interpreted in conjunction with the overall clinical context. . NOTE: Troponin I testing is performed using a different testing methodology at [facility] than at other [facility]. Direct result comparisons should only be made within the same method. Performed By: #### T [facility] #### [address] [id number] Triage - EDon 12-16-2021 Triage - ED Quick Triage: Are You no Have You Given In The Last 6 Weeksno Are You Currently Breastfeedingno Chart Review: PRIMARY ASSESSMENT ABCD Normal Findings: airway open and patent, breathing normal, circulation normal and alert and oriented ARRIVAL INFORMATION Means of Arrival: Ambulatory Mode of Arrival: private vehicle Arrival From: home Accompanied By: self Language: Spoken Language Preferred: [place] Reading Language Preferred: [place] Legal Department Manager Requested: no conference interpreter was requested CHIEF COMPLAINT NICKI OVIEDO is a Female patient with a chief complaint of abdominal pain ( I live in [place] I was hospitalized for pancreatitis and Crohn I came here for the holiday weekend and I have been vomiting all day and pain in the stomach ). Onset of the Complaint: 15-Dec-2021 22:11 Triage Date/Time: 15-Dec-2021 22:09 DIAN: 3 Pain Rating (0-10): 9 = Severe Pain location: abdomen Vital Signs: Temperature: 97.3F ( 36.3C) Blood Pressure: 175/105 Mean: Heart Rate: 91 Respiratory Rate: 18 Pulse Oximetry: 95% on room air, no respiratory support. Height: 5 feet 7.00 inches. 170.1 CM Weight: 299.8 pounds. Calculated 136.0 kg. (stated) Calculated BMI (kg/m2): 47.003 Calculated BSA (m2) 2.53 Linda Coma Scale: Best Eye Response: (E4) spontaneous Best Motor Response: (M6) obeys commands Best Verbal Response: (V5) oriented Linda Score: 15 Cough lasting greater than 3 weeks: no Patient immunocompromised related to: N/A Allergies: yes Last menstrual period: 30-Nov-2021 Patient has homicidal thoughts: no Symptoms Are POSITIVE For: diarrhea and vomiting. Symptoms Are Negative For: anorexia, constipation, diaphoresis, distention, fever, nausea and rectal blood. Risk Screens Suicide Risk Screen In the Past Month: Have you wished you were or wished you could go to sleep and not wake up no In the Past Month: Have you had any actual thoughts of killing yourself no In Your Lifetime: Have you ever done anything, started to do anything, or prepared to do anything to end your life no Timmons Fall Scale Screening Has the patient fallen before (or is the patient in the ED as a result of a fall) has not had a fall Does the patient have an impaired gait does not have impaired gait Is the patient cognitively impaired not cognitively impaired Interventions: Shanelle Fall Interventions: LOW INTERVENTIONS: *patient oriented to surroundings and call system, * patient/family falls education completed and documented, *patients fall status communicated during bedside handoff, *whiteboard updated, *mode of toileting discussed with patient, *bed in low position with brakes locked, *call light in reach, * non-skid footwear PAST MEDICAL HISTORY Immunization History: Last Known Tetanus Immunization: Unknown TRAVEL HISTORY Travel History Coronavirus Screening: no exposure or symptoms Travel Exposure History: NO travel to International locations in the past 30 days PAIN Pain Scale Used: ROCKY Pain Rating (0-10): 9 = Severe Past Medical History: Past Medical History Reviewedyes right ovary removed: Past Surgical History, Active Cholecystectomy: Past Surgical History, Active Appendectomy: Past Surgical History, Active ERCP: Past Surgical History, Active HTN: Past Medical History, Active Endometriosis: Past Medical History, Active Pancreatitis: Past Medical History, Active Crohn's disease: Past Medical History, Active Electronic Signatures: Vonda Whiting (STAFF N) (Signed 15-Dec-2021 22:14) Entered: Risk Screens, Pain, Arrival, ABCD, Immunizations, Travel History, Chart Review, Scores, Past Medical History Authored: Quick Triage, Risk Screens, Pain, Arrival, ABCD, Immunizations, Travel History, Chart Review, Scores, Past Medical History Last Updated: 15-Dec-2021 22:14 by Vonda Whiting (STAFF N) Normal [facility] URINALYSIS WITH CULTURE IF I NDICATEDon 12-16-2021 Appearance (U) CLEAR Normal CLEAR [facility] Comment on above: Performed By: #### L ACT #### [address] [id number] Bilirubin Ql (U) Negative Normal NEGATIVE [facility] Comment on above: Performed By: #### L ACT #### [address] [id number] Color (U) YELLOW Normal STRAW,YELLOW [facility] Comment on above: Performed By: #### L ACT #### [address] [id number] Glucose Ql (U) Negative Normal NEGATIVE [facility] Comment on above: Performed By: #### L ACT #### [address] [id number] Hemoglobin Ql (U) Negative Normal NEGATIVE [facility] Comment on above: Performed By: #### L ACT #### [address] [id number] Ketones Ql (U) Negative Normal NEGATIVE [facility] Comment on above: Performed By: #### L ACT #### [address] [id number] Leukocyte esterase Test strip Ql (U) Negative Normal NEGATIVE [facility] Comment on above: Performed By: #### L ACT #### [address] [id number] Nitrite Ql (U) Negative Normal NEGATIVE [facility] Comment on above: Performed By: #### L ACT #### [address] [id number] pH (U) 5.5 [pH] Normal 5.0 - 8.0 [facility] Comment on above: Performed By: #### L [facility] #### [address] [id number] Protein Ql (U) Negative Normal NEGATIVE [facility] Comment on above: Performed By: #### L ACT #### [address] [id number] Specific gravity (U) [Rel density] <1.005 Abnormal 1.005 - 1.035 [facility] Comment on above: Performed By: #### L ACT #### [address] [id number] Urobilinogen (U) [Mass/Vol] mg/dL Normal 0.0 - 1.9 [facility] Comment on above: Performed By: #### L ACT #### [address] [id number] Albumin [Mass/volume] in Ser um or PlasmaOrdered By: Myles Felix on 12-15-2021 Albumin [Mass/Vol] 3.4 g/dL 3.2-5.5 [facility] Automated erythrocytes count in urine sediment (number/area)Ordered By: Myles Felix on 12-15-2021 RBC Auto (Urine sed) [#/Area] 5-9 [HPF] [facility] Automated leukocytes count i n urine sediment (number/area)Ordered By: Myles Felix on 12-15-2021 WBC Auto (Urine sed) [#/Area] 1-2 [HPF] [facility] Basophils Auto (Bld) [#/Vol] Ordered By: Myles Felix on 12-15-2021 Basophils (Bld) [#/Vol] 0.0 10*3/uL 0.0-0.2 [facility] Basophils/100 WBC Auto (Bld) Ordered By: Myles Felix on 12-15-2021 Basophils/100 WBC (Bld) 0.2 % F [facility] Bilirubin Test strip Ql (U)O rdered By: Myles Felix on 12-15-2021 Bilirubin Ql (U) Negative Negative [facility] Blood hemoglobin measurement (mass/volume)Ordered By: Myles Felix on 12-15-2021 Hemoglobin (Bld) [Mass/Vol] 13.3 g/dL 11.8-15.4 [facility] Blood leukocytes automated c ount (number/volume)Ordered By: Myles Felix on 12-15-2021 WBC (Bld) [#/Vol] 8.3 10*3/uL 4.5-11.0 [facility] CT abdomen pelvis wo conon 0 12-15-2021 CT abdomen pelvis wo con [facility] [place] [address] CT Scan Report Signed Patient: Nicki Oviedo MR#: [id number] : 1975 Acct:[id number] Age/Sex: 46 / F ADM Date: 12/15/21 Loc: ER Room: Type: [facility] ER Attending Dr: Copies to: Myles Felix DO Ordering Provider: Myles Felix DO Date of Service: 12/15/21 CT/CT abdomen pelvis wo con: abd pain CT ABDOMEN AND PELVIS WITHOUT CONTRAST CLINICAL DATA: Lower abdominal pain radiating to the right. Vomiting and diarrhea. History of Crohn's disease. COMPARISON: 09/14/2021 Spiral images were obtained through the abdomen and pelvis without contrast. This CT exam was performed using one or more following dose reduction techniques: Automated exposure control, adjustment of the mA and/or kV according to patient size, or use of iterative reconstruction technique. Limited cuts through the lung bases show minimal atelectasis or scarring. Assessment of the intra-abdominal organs is slightly limited by the absence of contrast. The gallbladder is surgically absent. There is new mild pneumobilia. Fatty infiltration of the liver is seen. The spleen, pancreas and adrenal glands show no acute findings. There are small bilateral renal calculi measuring up to 4 mm in size. No hydronephrosis is present. No ureteral dilatation or stones are seen. The abdominal aorta is normal caliber. No enlarged lymph nodes or ascites are seen. The small bowel loops are not distended. There is no prominent colonic stool. Subtle levoscoliotic curvature is noted. Images through the pelvis show normal caliber small bowel loops. The appendix is surgically absent. There is minimal distal colonic stool. There is no prominent diverticular disease. No active inflammation is seen. The reproductive organs appear unremarkable. The urinary bladder is not well distended however no contour or intraluminal abnormalities are seen. There is no ascites. Mild stranding is present within the subcutaneous fat at the right lower pelvic wall, also seen previously and may be scarring. CT/CT abdomen pelvis wo con IMPRESSION: BILATERAL NEPHROLITHIASIS, WITHOUT OBSTRUCTION. FATTY LIVER. NEW PNEUMOBILIA. THIS MIGHT RELATE TO PREVIOUS CHOLECYSTECTOMY. NO OTHER ACUTE FINDINGS. Impression dictated by: Jessica Roldan M.D.12/15/2021 6:02 PM Dictation Location: [place] [address] Transcribed By: [facility] 12/15/211801 Dictated By: Jessica Roldan MD 12/15/211752 Signed By: 12/15/211801 Normal [facility] Color Auto (U)Ordered By: Naresh Felix on 12-15-2021 Color (U) Yellow Yellow [facility] Complete Blood Count Auto Di ffon 12-15-2021 Basophils (Bld) [#/Vol] 0.0 10*3/uL Normal 0.0-0.2 [facility] Comment on above: Result Comment: PERF ORMED BY: [place] [address] PATHOLOGIST WIRE BRUSHER KIERRA BROOKS M.D. Performed By: #### C BC, CMP, LIPASE #### [address] Basophils/100 WBC (Bld) 0.2 % Normal . [facility] Comment on above: Performed By: #### C BC, CMP, LIPASE #### [facility] [address] [place] [address] Eosinophils (Bld) [#/Vol] 0.0 10*3/uL Normal 0.0-0.45 [facility] Comment on above: Performed By: #### C BC, CMP, LIPASE #### [address] Eosinophils/100 WBC (Bld) 0.1 % Normal . [facility] Comment on above: Performed By: #### C BC, CMP, LIPASE #### [facility] [address] Erythrocyte distribution width (RBC) [Ratio] 15.8 % High 11.9-15.3 [facility] Comment on above: Performed By: #### C BC, CMP, LIPASE #### [address] Hematocrit (Bld) [Volume fraction] 40.2 % Normal 34.0-46.4 [facility] Comment on above: Performed By: #### C BC, CMP, LIPASE #### [address] Hemoglobin (Bld) [Mass/Vol] 13.3 g/dL Normal 11.8-15.4 [facility] Comment on above: Performed By: #### C BC, CMP, LIPASE #### [address] Lymphocytes (Bld) [#/Vol] 1.0 10*3/uL Normal 1.00-4.8 [facility] Comment on above: Performed By: #### C BC, CMP, LIPASE #### [address] Lymphocytes/100 WBC (Bld) 12.6 % Normal . [facility] Comment on above: Performed By: #### C BC, CMP, LIPASE #### [address] MCH (RBC) [Entitic mass] 28.8 pg Normal 24.7-34.3 [facility] Comment on above: Performed By: #### C BC, CMP, LIPASE #### [address] MCV (RBC) [Entitic vol] 86.9 fL Normal 80-100 [facility] Comment on above: Performed By: #### C BC, CMP, LIPASE #### [facility] [address] Mean Corpuscular HGB Conc 33.1 g/dL Normal 32.0-35.0 [facility] Comment on above: Performed By: #### C BC, CMP, LIPASE #### [facility] [address] [place] [address] [place] Monocytes (Bld) [#/Vol] 0.6 10*3/uL Normal 0.0-0.8 [facility] Comment on above: Performed By: #### C BC, CMP, LIPASE #### [facility] [address] [place] [address] [place] Monocytes/100 WBC (Bld) 6.8 % Normal . [facility] Comment on above: Performed By: #### C BC, CMP, LIPASE #### [facility] [address] [place] [address] [place] Neutrophils (Bld) [#/Vol] 6.7 10*3/uL Normal 1.8-7.7 [facility] Comment on above: Performed By: #### C BC, CMP, LIPASE #### [facility] [address] [place] [address] [place] Neutrophils/100 WBC (Bld) 80.3 % Normal . [facility] Comment on above: Performed By: #### C BC, CMP, LIPASE #### [facility] [address] [place] [id number] [place] Nucleated RBC/100 WBC (Bld) [Ratio] 0.0 % Normal 0-0.5 [facility] Comment on above: Performed By: #### C BC, CMP, LIPASE #### [facility] [address] [place] [address] [place] Platelet mean volume (Bld) [Entitic vol] 7.5 fL Normal 6.3-10.7 [facility] Comment on above: Performed By: #### C BC, CMP, LIPASE #### [facility] [address] [place] [id number] [place] Platelets (Bld) [#/Vol] 321 10*3/uL Normal 150-450 [facility] Comment on above: Performed By: #### C BC, CMP, LIPASE #### [address] RBC (Bld) [#/Vol] 4.62 10*6/uL Normal 3.60-5.00 [facility] Comment on above: Performed By: #### C BC, CMP, LIPASE #### [address] WBC (Bld) [#/Vol] 8.3 10*3/uL Normal 4.5-11.0 [facility] Comment on above: Performed By: #### C BC, CMP, LIPASE #### [address] Comprehensive Metabolic Pane johan 12-15-2021 Albumin [Mass/Vol] 3.4 g/dL Normal 3.2-5.5 [facility] Comment on above: Performed By: #### C BC, CMP, LIPASE #### [address] Albumin/Globulin [Mass ratio] 1.0 {ratio} Normal [facility] Comment on above: Performed By: #### C BC, CMP, LIPASE #### [address] ALP [Catalytic activity/Vol] 54 U/L Normal 32-92 [facility] Comment on above: Performed By: #### C BC, CMP, LIPASE #### [address] ALT [Catalytic activity/Vol] 32 U/L Normal 10-60 [facility] Comment on above: Performed By: #### C BC, CMP, LIPASE #### [address] AST [Catalytic activity/Vol] 20 U/L Normal 10-42 [facility] Comment on above: Performed By: #### C BC, CMP, LIPASE #### [address] Bilirubin [Mass/Vol] 0.5 mg/dL Normal 0.3-1.2 [facility] [place] Comment on above: Performed By: #### C BC, CMP, LIPASE #### [facility] [address] Calcium [Mass/Vol] 8.9 mg/dL Normal 8.2-10.2 [facility] Comment on above: Performed By: #### C BC, CMP, LIPASE #### [facility] [address] Chloride [Moles/Vol] 97 mmol/L Normal 95-114 [facility] [place] Comment on above: Performed By: #### C BC, CMP, LIPASE #### [facility] [address] CO2 [Moles/Vol] 24.8 mmol/L Normal 22.0-30.0 [facility] Comment on above: Performed By: #### C BC, CMP, LIPASE #### [address] Creatinine [Mass/Vol] 0.99 mg/dL Normal 0.44-1.03 [facility] Comment on above: Performed By: #### C BC, CMP, LIPASE #### [address] Creatinine Clr Calc Pharmacy 105.78 [facility] Comment on above: Performed By: #### C BC, CMP, LIPASE #### [address] Estimated GFR ( Miranda > 60 [facility] Comment on above: Result Comment: GFR estimated reference range: According to KDOQI guidelines, <60 ml/min/1.73m2 is sufficient to diagnose a patient with chronic kidney disease. Performed By: #### C BC, CMP, LIPASE #### [address] Estimated GFR (Non- Am > 60 [facility] Comment on above: Performed By: #### C BC, CMP, LIPASE #### [place] [address] [place] Globulin (S) [Mass/Vol] 3.3 g/dL Normal [facility] Comment on above: Performed By: #### C BC, CMP, LIPASE #### [facility] [address] [place] [address] [place] Glucose [Mass/Vol] 207 mg/dL High 70-100 [facility] Comment on above: Result Comment: [place] Glucose Reference Range is dependent on time and content of last meal. Glucose of more than 200 mg/dL in a nonstressed, ambulatory subject supports the diagnosis of Diabetes Mellitus. ADA recommended reference range Performed By: #### C BC, CMP, LIPASE #### [facility] [address] Potassium [Moles/Vol] 3.5 mmol/L Normal 3.5-5.1 [facility] Comment on above: Performed By: #### C BC, CMP, LIPASE #### [facility] [address] [place] [address] [place] Protein [Mass/Vol] 6.7 g/dL Normal 6.1-7.9 [facility] Comment on above: Performed By: #### C BC, CMP, LIPASE #### [facility] [address] [place] [address] [place] Sodium [Moles/Vol] 135 mmol/L Low 136-146 [facility] Comment on above: Performed By: #### C BC, CMP, LIPASE #### [facility] [address] [place] [id number] [place] Urea nitrogen [Mass/Vol] 15 mg/dL Normal 9-23 [facility] Comment on above: Performed By: #### C BC, CMP, LIPASE #### [facility] [address] [place] [address] [place] Creatinine and Glomerular fi ltration rate.predicted panel (S/P/Bld)Ordered By: Myles Felix on 12-15-2021 Creatinine [Mass/Vol] 0.99 mg/dL 0.44-1.03 [facility] Dipstick and Microscopicon 0 12-15-2021 Appearance (U) Clear Normal Clear [facility] Comment on above: Order Comment: Name Collection Type:: Clean-Voided Midstream Performed By: #### A DDONUAPLUS #### [facility] [address] [place] [address] [place] Bacteria,Urine None Seen Normal None Seen [facility] Comment on above: Order Comment: Name Collection Type:: Clean-Voided Midstream Performed By: #### A DDONUAPLUS #### [facility] [address] [place] [address] [place] Bilirubin,Urine Negative Normal Negative [facility] Comment on above: Order Comment: Name Collection Type:: Clean-Voided Midstream Performed By: #### A DDONUAPLUS #### [facility] [address] [place] [address] [place] Color (U) Yellow Normal Yellow [facility] Comment on above: Order Comment: Name Collection Type:: Clean-Voided Midstream Performed By: #### A DDONUAPLUS #### [facility] [address] [place] [address] [place] Glucose Ql (U) Normal Normal Normal [facility] Comment on above: Order Comment: Name Collection Type:: Clean-Voided Midstream Performed By: #### A DDONUAPLUS #### [facility] [address] [place] [address] [place] Hyaline Casts,Urine 0-8 Normal 0-8 [facility] Comment on above: Order Comment: Name Collection Type:: Clean-Voided Midstream Result Comment: PERF ORMED BY: [place] [address] PATHOLOGIST WIRE BRUSHER KIERRA BROOKS M.D. Performed By: #### A DDONUAPLUS #### [facility] [address] [place] [address] [place] Ketones Ql (U) Negative Normal Negative [facility] Comment on above: Order Comment: Name Collection Type:: Clean-Voided Midstream Performed By: #### A DDONUAPLUS #### [facility] [address] [place] [address] [place] Leukocyte esterase Test strip Ql (U) Negative Normal Negative [facility] Comment on above: Order Comment: Name Collection Type:: Clean-Voided Midstream Performed By: #### A DDONUAPLUS #### [facility] [address] [place] [address] [place] Nitrite,Urine Negative Normal Negative [facility] Comment on above: Order Comment: Name Collection Type:: Clean-Voided Midstream Performed By: #### A DDONUAPLUS #### [facility] [address] [place] [address] [place] Occult Blood,Urine Trace High Negative [facility] Comment on above: Order Comment: Name Collection Type:: Clean-Voided Midstream Result Comment: PERF ORMED BY: [place] [address] PATHOLOGIST WIRE BRUSHER KIERRA BROOKS M.D. Performed By: #### A DDONUAPLUS #### [facility] [address] [place] [address] [place] pH (U) 6.0 [pH] Normal 5.0-9.0 [facility] Comment on above: Order Comment: Name Collection Type:: Clean-Voided Midstream Performed By: #### A DDONUAPLUS #### [facility] [address] [place] [address] [place] Protein,Urine Negative Normal Negative [facility] Comment on above: Order Comment: Name Collection Type:: Clean-Voided Midstream Performed By: #### A DDONUAPLUS #### [facility] [address] [place] [address] [place] RBC,Urine 5-9 High 0-4 [facility] Comment on above: Order Comment: Name Collection Type:: Clean-Voided Midstream Performed By: #### A DDONUAPLUS #### [facility] [address] [place] [address] [place] Specificy [place],Urine 1.014 Normal 1.001-1.030 [facility] Comment on above: Order Comment: Name Collection Type:: Clean-Voided Midstream Performed By: #### A DDONUAPLUS #### [facility] [address] [place] [address] [place] Squamous Epithelial Cell,Urine 1-2 Normal 0-2 [facility] Comment on above: Order Comment: Name Collection Type:: Clean-Voided Midstream Performed By: #### A DDONUAPLUS #### [facility] [address] Urobilinogen,Urine Normal Normal Normal [facility] Comment on above: Order Comment: Name Collection Type:: Clean-Voided Midstream Performed By: #### A DDONUAPLUS #### [facility] [address] WBC,Urine 1-2 Normal 0-4 [facility] Comment on above: Order Comment: Name Collection Type:: Clean-Voided Midstream Performed By: #### A DDONUAPLUS #### [facility] [address] [place] [address] Eosinophils Auto (Bld) [#/Vo l]Ordered By: Myles Felix on 12-15-2021 Eosinophils (Bld) [#/Vol] 0.0 10*3/uL 0.0-0.45 [facility] Eosinophils/100 WBC Auto (Bl d)Ordered By: Myles Felix on 12-15-2021 Eosinophils/100 WBC (Bld) 0.1 % [facility] Erythrocyte distribution wid th Auto (RBC) [Ratio]Ordered By: Myles Felix on 12-15-2021 Erythrocyte distribution width (RBC) [Ratio] 15.8 % 11.9-15.3 [facility] Estimated glomerular filtrat ion rate (GFR) non- AmericanOrdered By: Myles Felix on 12-15-2021 GFR/1.73 sq M.predicted among non-blacks MDRD (S/P/Bld) [Vol rate/Area] > 60 mL/Min [facility] Globulin Calc (S) [Mass/Vol] Ordered By: Myles Felix on 12-15-2021 Globulin (S) [Mass/Vol] 3.3 g/dL F [facility] HCG ( test) IA.rapi d Ql (U)Ordered By: Myles Felix on 12-15-2021 HCG ( test) Ql (U) Negative [facility] HCG,Urineon 12-15-2021 Beta HCG ( test) Ql (U) Negative Normal [facility] Comment on above: Result Comment: PERF ORMED BY: [place] [address] PATHOLOGIST WIRE BRUSHER KIERRA BROOKS M.D. Performed By: #### U HCG #### [facility] [address] [place] [address] Hematocrit Auto (Bld) [Volum e fraction]Ordered By: Myles Felix on 12-15-2021 Hematocrit (Bld) [Volume fraction] 40.2 % 34.0-46.4 [facility] Ketones Auto test strip (U) [Mass/Vol]Ordered By: Myles Felix on 12-15-2021 Ketones (U) [Mass/Vol] Negative Negative Fi [facility] - Chemistry and C hemistry - challengeOrdered By: Myles Felix on 12-15-2021 Lipase [Catalytic activity/Vol] 33.0 U/L [facility] - Hematology and Cell countsOrdered By: Myles Felix on 12-15-2021 Nucleated RBC/100 WBC (Bld) [Ratio] 0.0 % 0-0.5 [facility] - UrinalysisOrder ed By: Myles Felix on 12-15-2021 Hyaline casts LM Ql (Urine sed) 0-8 [LPF] [facility] Lipaseon 12-15-2021 Lipase [Catalytic activity/Vol] 33.0 U/L Normal [facility] Comment on above: Result Comment: PERF ORMED BY: [place] [address] PATHOLOGIST WIRE BRUSHER KIERRA BROOKS M.D. Performed By: #### C BC, CMP, LIPASE #### [facility] [address] [place], [place] [id number] [facility] Lymphocytes Auto (Bld) [#/Vo l]Ordered By: Myles Felix on 12-15-2021 Lymphocytes (Bld) [#/Vol] 1.0 10*3/uL 1.00-4.8 [facility] Lymphocytes/100 WBC Auto (Bl d)Ordered By: Myles Felix on 12-15-2021 Lymphocytes/100 WBC (Bld) 12.6 % [facility] MCH Auto (RBC) [Entitic mass ]Ordered By: Myles Felix on 12-15-2021 MCH (RBC) [Entitic mass] 28.8 pg 24.7-34.3 [facility] MCHC Auto (RBC) [Mass/Vol]Or dered By: Myles Felix on 12-15-2021 MCHC (RBC) [Mass/Vol] 33.1 g/dL 32.0-35.0 [facility] MCV Auto (RBC) [Entitic vol] Ordered By: Myles Felix on 12-15-2021 MCV (RBC) [Entitic vol] 86.9 fL 80-100 F [facility] Monocytes Auto (Bld) [#/Vol] Ordered By: Myles Felix on 12-15-2021 Monocytes (Bld) [#/Vol] 0.6 10*3/uL 0.0-0.8 [facility] Monocytes/100 WBC Auto (Bld) Ordered By: Myles Felix on 12-15-2021 Monocytes/100 WBC (Bld) 6.8 % F [facility] Neutrophils Auto (Bld) [#/Vo l]Ordered By: Myles Felix on 12-15-2021 Neutrophils (Bld) [#/Vol] 6.7 10*3/uL 1.8-7.7 [facility] Neutrophils/100 WBC Auto (Bl d)Ordered By: Myles Felix on 12-15-2021 Neutrophils/100 WBC (Bld) 80.3 % [facility] Nitrite Test strip Ql (U)Ord ered By: Myles Feilx on 12-15-2021 Nitrite Ql (U) Negative Negative [facility] No Panel InformationOrdered By: Myles Felix on 12-15-2021 Estimated GFR () > 60 mL/Min [facility] Comment on above: GFR estimated refere nce range: According to KDOQI guidelines, <60 ml/min/1.73m2 is sufficient to diagnose a patient with chronic kidney disease. Pharmacy Creatinine Clearance (Chem 105.78 [facility] Platelet mean volume Auto (B ld) [Entitic vol]Ordered By: Myles Felix on 12-15-2021 Platelet mean volume (Bld) [Entitic vol] 7.5 fL 6.3-10.7 [facility] Platelets Auto (Bld) [#/Vol] Ordered By: Myles Felix on 12-15-2021 Platelets (Bld) [#/Vol] 321 10*3/uL 150-450 [facility] Protein Auto test strip (U) [Mass/Vol]Ordered By: Myles Felix on 12-15-2021 Protein (U) [Mass/Vol] Negative Negative [facility] Protein [Mass/volume] in Ser um or PlasmaOrdered By: Myles Felix on 12-15-2021 Protein [Mass/Vol] 6.7 g/dL 6.1-7.9 [facility] RBC Auto (Bld) [#/Vol]Ordere d By: Myles Felix on 12-15-2021 RBC (Bld) [#/Vol] 4.62 10*6/uL 3.60-5.00 [facility] Serum or plasma alanine villalobos otransferase measurement without P-5'-P (enzymatic activiOrdered By: Myles Felix on 12-15-2021 ALT No additional P-5'-P [Catalytic activity/Vol] 32 U/L 10-60 [facility] Serum or plasma albumin/glob ulin mass ratioOrdered By: Myles Felix on 12-15-2021 Albumin/Globulin [Mass ratio] 1.0 {ratio} [facility] Serum or plasma alkaline zan sphatase measurement (enzymatic activity/volume)Ordered By: Myles Felix on 12-15-2021 ALP [Catalytic activity/Vol] 54 U/L 32-92 [facility] Serum or plasma aspartate am inotransferase measurement (enzymatic activity/volume)Ordered By: Myles Felix on 12-15-2021 AST [Catalytic activity/Vol] 20 U/L 10-42 [facility] Serum or plasma calcium rosa m urement (mass/volume)Ordered By: Myles Felix on 12-15-2021 Calcium [Mass/Vol] 8.9 mg/dL 8.2-10.2 [facility] Serum or plasma chloride joshua surement (moles/volume)Ordered By: Myles Felix on 12-15-2021 Chloride [Moles/Vol] 97 mmol/L 95-114 [facility] [place] Serum or plasma glucose rosa m urement (mass/volume)Ordered By: Myles Felix on 12-15-2021 Glucose [Mass/Vol] 207 mg/dL 70-100 [facility] Comment on above: ADA recommended refe rence range Random Glucose Reference Range is dependent on time and content of last meal. Glucose of more than 200 mg/dL in a nonstressed, ambulatory subject supports the diagnosis of Diabetes Mellitus. Serum or plasma potassium me asurement (moles/volume)Ordered By: Myles Felix on 12-15-2021 Potassium [Moles/Vol] 3.5 mmol/L 3.5-5.1 [facility] Serum or plasma sodium measu rement (moles/volume)Ordered By: Myles Felix on 12-15-2021 Sodium [Moles/Vol] 135 mmol/L 136-146 [facility] Serum or plasma total biliru bin measurement (mass/volume)Ordered By: Myles Felix on 12-15-2021 Bilirubin [Mass/Vol] 0.5 mg/dL 0.3-1.2 [facility] [place] Serum or plasma total carbon dioxide measurement (moles/volume)Ordered By: Myles Felix on 12-15-2021 CO2 [Moles/Vol] 24.8 mmol/L 22.0-30.0 [facility] Serum or plasma urea nitroge n measurement (mass/volume)Ordered By: Myles Felix on 12-15-2021 Urea nitrogen [Mass/Vol] 15 mg/dL 9-23 [facility] Specific gravity Auto test s trip (U) [Rel density]Ordered By: Myles Felix on 12-15-2021 Specific gravity (U) [Rel density] 1.014 1.001-1.030 [facility] Squamous epithelial cells de tection in urine sediment by light microscopyOrdered By: Myles Felix on 12-15-2021 Epithelial cells.squamous LM Ql (Urine sed) 1-2 [HPF] [facility] Urine bacteria detection by automated methodOrdered By: Myles Felix on 12-15-2021 Bacteria Auto Ql (U) None seen None Seen [facility] [place] Urine clarity by refractomet ry automatedOrdered By: Myles Felix on 12-15-2021 Clarity Refractometry automated (U) Clear Clear [facility] Urine glucose measurement by automated test strip (mass/volume)Ordered By: Myles Felix on 12-15-2021 Glucose Auto test strip (U) [Mass/Vol] Normal mg/dL Normal [facility] Urine hemoglobin detection b y automated test stripOrdered By: Myles Felix on 12-15-2021 Hemoglobin Auto test strip Ql (U) Trace Negative [facility] Urine leukocyte esterase det ection by automated test stripOrdered By: Myles Felix on 12-15-2021 Leukocyte esterase Auto test strip Ql (U) Negative Negative [facility] Urobilinogen Auto test strip (U) [Mass/Vol]Ordered By: Myles Felix on 12-15-2021 Urobilinogen (U) [Mass/Vol] Normal mg/dL Normal [facility] pH Auto test strip (U)Ordere d By: Myles Felix on 12-15-2021 pH (U) 6.0 [pH] 5.0-9.0 [facility] AMYLASEon 12-02-2021 Amylase [Catalytic activity/Vol] 29 U/L Normal 25-115 [facility] Comment on above: Performed By: #### C MP, NICKI #### [facility] [address] [place] [address] Dr. Phi Souza CBC AUTO DIFFon 12-02-2021 BASO # 0.0 103/ul Normal 0.0-0.1 [facility] Comment on above: Performed By: #### C BC #### [facility] [address] [address] [address] Phi Souza Basophils/100 WBC (Bld) 0.8 % Normal 0.2-2.0 [facility] Comment on above: Performed By: #### C BC #### [facility] [address] [address] [address] Phi Souza EO # 0.1 103/ul Normal 0.0-0.7 [facility] Comment on above: Performed By: #### C BC #### [facility] [address] [place] [address] Dr. Phi Souza Eosinophils/100 WBC (Bld) 1.2 % Normal 0.9-7.0 [facility] Comment on above: Performed By: #### C BC #### [facility] [address] [place] [address] Dr. Phi Souza Erythrocyte distribution width (RBC) [Ratio] 13.6 % Normal 11.0-15.0 [facility] Comment on above: Performed By: #### C BC #### [facility] [address] [place] [address] Dr. Phi Souza Hematocrit (Bld) [Volume fraction] 38.4 % Normal 36.0-48.0 [facility] Comment on above: Performed By: #### C BC #### [facility] [address] [place] [address] Dr. Phi Souza Hemoglobin (Bld) [Mass/Vol] 12.9 g/dL Normal 12.0-16.0 [facility] Comment on above: Performed By: #### C BC #### [facility] [address] [place] [address] Dr. Phi Souza IG # 0.02 10e3/ul Normal 0.00-0.03 [facility] Comment on above: Performed By: #### C BC #### [facility] [address] [place] [address] Dr. Phi Souza IG % 0.4 % Normal 0.0-0.5 [facility] Comment on above: Performed By: #### C BC #### [facility] [address] [place] [address] Dr. Phi Souza LYMPH # 2.1 103/ul Normal 1.2-3.8 [facility] Comment on above: Performed By: #### C BC #### [facility] [address] [place] [address] Dr. Phi Souza Lymphocytes/100 WBC (Bld) 39.3 % Normal 20.5-60.0 [facility] Comment on above: Performed By: #### C BC #### [facility] [address] [place] [address] Dr. Phi Souza MANUAL DIFF REQ NO Normal [facility] Comment on above: Performed By: #### C BC #### [facility] [address] [place] [address] Dr. Phi Souza MCH (RBC) [Entitic mass] 28.5 pg Normal 26.7-34.0 [facility] Comment on above: Performed By: #### C BC #### [facility] [address] [place] [address] Dr. Phi Souza MCHC (RBC) [Mass/Vol] 33.6 g/dL Normal 29.9-35.2 [facility] Comment on above: Performed By: #### C BC #### [facility] [address] [place] [address] Dr. Phi Souza MCV (RBC) [Entitic vol] 85.0 fL Normal 81.0-99.0 [facility] Comment on above: Performed By: #### C BC #### [facility] [address] [place] [address] Dr. Phi Souza MONO # 0.6 103/ul Normal 0.3-0.8 [facility] Comment on above: Performed By: #### C BC #### [facility] [address] [place] [address] Dr. Phi Souza Monocytes/100 WBC (Bld) 11.1 % Normal 1.7-12.0 [facility] Comment on above: Performed By: #### C BC #### [facility] [address] [place] [address] Dr. Phi Souza NEUT # 2.5 103/ul Normal 1.4-6.5 [facility] Comment on above: Performed By: #### C BC #### [facility] [address] [place] [address] Dr. Phi Souza Neutrophils/100 WBC (Bld) 47.2 % Normal 43.0-75.0 [facility] Comment on above: Performed By: #### C BC #### [facility] [address] [address] [address] Phi Souza Platelet mean volume (Bld) [Entitic vol] 8.7 fL Critically low 9.5-13.5 [facility] Comment on above: Performed By: #### C BC #### [facility] [address] [address] [address] Phi Souza PLT 300 103/ul Normal 150-450 [facility] Comment on above: Performed By: #### C BC #### [facility] [address] [address] [address] Phi Souza RBC 4.52 106/ul Normal 4.20-5.40 [facility] Comment on above: Performed By: #### C BC #### [facility] [address] [address] [address] Phi Souza WBC 5.2 103/ul Normal 4.0-11.0 [facility] Comment on above: Performed By: #### C BC #### [facility] [address] [address] [address] Phi Souza PROF 14(COMP METB)on 022 Albumin [Mass/Vol] 3.3 g/dL Critically low 3.4-5.0 [facility] Comment on above: Performed By: #### C LORENA, NICKI ####[facility] [address] [address]DrTim Souza Albumin/Globulin [Mass ratio] 0.9 {ratio} Normal [facility] Comment on above: Performed By: #### C MP, NICKI ####[facility] [address] [id number] Souza ALP [Catalytic activity/Vol] 68 U/L Normal 46-116 [facility] Comment on above: Performed By: #### C MP, NICKI ####[facility] [address] [id number] Souza ALT [Catalytic activity/Vol] 36 U/L Normal 14-59 [facility] Comment on above: Performed By: #### C LORENA, NICKI ####[facility] [address] [id number]. hPi Souza Anion gap [Moles/Vol] 9.8 mmol/L Normal [facility] Comment on above: Performed By: #### C MP, NICKI ####[facility] [address] [address]Dr. Phi Souza AST [Catalytic activity/Vol] 16 U/L Normal 15-37 [facility] Comment on above: Performed By: #### C LORENA, NICKI ####[facility] [address] [address]Dr. Phi Souza Bilirubin [Mass/Vol] 0.4 mg/dL Normal 0.2-1.0 [facility] Comment on above: Performed By: #### C LORENA, NICKI ####[facility] [address] [place], [place] [address]Dr. Phi Souza Calcium [Mass/Vol] 9.0 mg/dL Normal 8.5-10.1 [facility] Comment on above: Performed By: #### C LORENA, NICKI ####[facility] [address] [place], [place] [address]Dr. Phi Souza Chloride [Moles/Vol] 99 mmol/L Normal 98-107 [facility] Comment on above: Performed By: #### C LORENA, NICKI ####[facility] [address] [place], [place] [address]Dr. Phi Souza CO2 [Moles/Vol] 28.4 mmol/L Normal 21.0-32.0 [facility] Comment on above: Performed By: #### C LORENA, NICKI ####[facility] [address] [place], [place] [address]Dr. Phi Souza Creatinine [Mass/Vol] 0.96 mg/dL Normal 0.55-1.02 [facility] Comment on above: Performed By: #### C LORENA, NICKI ####[facility] [address] [place], [place] [id number]. Phi Halrey EGFR-AF WALLISIAN >60 Normal >=60 [facility] Comment on above: Performed By: #### C MP, NICKI ####[facility] [address] [phone]. Phi Souza EGFR-NON AF WALLISIAN >60 Normal >=60 [facility] Comment on above: Performed By: #### C MP, NICKI ####[facility] [address] [phone]. Phi Souza Globulin (S) [Mass/Vol] 3.7 g/dL Normal [facility] Comment on above: Performed By: #### C MP, NICKI ####[facility] [address] [phone]. Phi Souza Glucose [Mass/Vol] 152 mg/dL Critically high 74-106 [facility] Comment on above: Performed By: #### C LORENA, NICKI ####[facility] [address] [place], [place] [address]Dr. Phi Souza Potassium [Moles/Vol] 3.2 mmol/L Critically low 3.5-5.1 [facility] Comment on above: Performed By: #### C LORENA, NICKI ####[facility] [address] [place], [place] [address]Dr. Phi Souza Protein [Mass/Vol] 7.0 g/dL Normal 6.4-8.2 [facility] Comment on above: Performed By: #### C LORENA, NICKI ####[facility] [address] [address]Dr. Phi Souza Sodium [Moles/Vol] 134 mmol/L Critically low 136-145 [facility] Comment on above: Performed By: #### C MP, NICKI ####[facility] [address] [address]Dr. Phi Souza Urea nitrogen [Mass/Vol] 13.0 mg/dL Normal 7.0-18.0 [facility] Comment on above: Performed By: #### C MP, NICKI ####[facility] [address] [address]Dr. Phi Souza Urea nitrogen/Creatinine [Mass ratio] 13.5 mg/mg Normal [facility] Comment on above: Performed By: #### C NICKI CARRILLO ####[facility] [address] [place], [place] [address]BcTim Souza XR ABD FLAT UP_PA Yung 12-02 XR ABD FLAT UP_PA CH EXAM: XR ABD FLAT UP_PA CH HISTORY: Abdominal Pain vomiting COMPARISON: X-ray performed 09/0412/05/[address] abdomen pelvis performed 01/30/2021. TECHNIQUE: Frontal view of the chest and supine and upright views of the abdomen are obtained. FINDINGS: The cardiomediastinal silhouette is nonenlarged. Pulmonary vascular markings are within normal limits. There is no focal airspace consolidation. The costophrenic angles. No free air under the diaphragm. No dilated loops of small or large bowel are evident. Cholecystectomy clips are present. Nonobstructing renal calculi overlie the right renal shadow at the upper pole measuring 3 mm and 5 mm at the lower pole. Catheter is in place the left kidney measuring 5 mm. The osseous structures appear grossly intact. IMPRESSION: 1. No acute cardiopulmonary process identified. 2. Nonobstructive bowel gas pattern. 3. Bilateral nonobstructing renal calculi. Electronically authenticated by: NARCISA CHEN Date: 2021-12-02 05:[address] [facility] .UA Microscp Aon 11-08-2021 UA Hyline Cast Qual 3-5 Normal Negative [facility] Comment on above: Performed By: #### E GFR #### [facility] [address] [place] [address] UA Mucus Present Abnormal Absent [facility] Comment on above: Performed By: #### E GFR #### [facility] [address] [place] [address] UA RBC Quant 7 /HPF High 0-5 [facility] Comment on above: Performed By: #### E GFR #### [facility] [address] [place] [address] UA Squepi Cells Quant 8 /HPF Normal 0-29 [facility] Comment on above: Performed By: #### E GFR #### [address] [place] [id number] UA WBC Quant 2 /HPF Normal 0-5 [facility] Comment on above: Performed By: #### E GFR #### [address] [address] .eGFRon 11-08-2021 GFR/1.73 sq M.predicted MDRD (S/P/Bld) [Vol rate/Area] mL/min/{1.73_m2} Normal >=60 [facility] Comment on above: Result Comment: [facility] have implemented the eGFR calculation approach that does not have a coefficient for race and that conforms to the NKF-ASN Task Force Recommendations. Stages of Chronic Kidney Disease GFR Stage 3a Mild to moderate loss of kidney function 59 to 45 Stage 3b Moderate to severe loss of kidney function 44 to 33 Stage 4 Severe loss of kidney function 29 to 15 Stage 5 Kidney failure Less than 15 GFR calculated using the CKD-Epi Creatinine Equation (2020): eGFR = 142 X min(SCr/?, 1)? X max(SCr /?, 1)-1.200 X 0.9938Age X 1.012 [if female] Abbreviations/Units: eGFR (estimated glomerular filtration rate) = mL/min/1.73 m2 SCr (standardized serum creatinine) = mg/dL ? = 0.7 (females) or 0.9 (males) ? = -0.241 (females) or -0.302 (males) min = indicates the minimum of SCr/? or 1 max = indicates the maximum of SCr/? or 1 Age = years Performed By: #### E GFR #### [address] [address] CBC w/ Diffon 11-08-2021 Erythrocyte distribution width (RBC) [Ratio] 15.3 % High 11.6-14.8 [facility] Comment on above: Performed By: #### E GFR #### [address] [address] Hematocrit (Bld) [Volume fraction] 36.1 % Normal 36.0-46.0 [facility] Comment on above: Performed By: #### E GFR #### [address] [address] Hemoglobin (Bld) [Mass/Vol] 12.0 g/dL Normal 12.0-16.0 [facility] Comment on above: Performed By: #### E GFR #### [address] [id number] MCH (RBC) [Entitic mass] 28.5 pg Normal 27.0-35.0 [facility] Comment on above: Performed By: #### E GFR #### [place] [id number] MCHC 33.3 % Normal 31.0-37.0 [facility] Comment on above: Performed By: #### E GFR #### [place] [id number] MCV (RBC) [Entitic vol] 85.7 fL Normal 80.0-100.0 B [facility] Comment on above: Performed By: #### E GFR #### [place] [id number] Platelet 212 x10*3/mcL Normal 150-350 [facility] Comment on above: Performed By: #### E GFR #### [place] [id number] Platelet mean volume (Bld) [Entitic vol] 7.0 fL Normal 6.7-10.6 [facility] Comment on above: Performed By: #### E GFR #### [place] [id number] RBC 4.22 x10*6/mcL Normal 3.80-5.20 [facility] Comment on above: Performed By: #### E GFR #### [place] [id number] WBC 4.6 x10*3/mcL Normal 4.5-11.0 [facility] Comment on above: Performed By: #### E GFR #### [place] [id number] CMPon 11-08-2021 Albumin [Mass/Vol] 3.3 g/dL Normal 3.2-4.9 [facility] Comment on above: Performed By: #### C OMP #### [address] [address] Albumin/Globulin [Mass ratio] 1.0 {ratio} Low 1.1-2.2 [facility] Comment on above: Performed By: #### C OMP #### [address] [address] Alk Phos 53 IU/L Normal 32-91 [facility] Comment on above: Performed By: #### C OMP #### [address] [address] ALT [Catalytic activity/Vol] 36 U/L Normal 14-54 [facility] Comment on above: Performed By: #### C OMP #### [address] [address] Anion gap [Moles/Vol] 12 mmol/L Normal 7-17 [facility] Comment on above: Performed By: #### C OMP #### [address] [address] AST [Catalytic activity/Vol] 35 U/L Normal 15-41 [facility] Comment on above: Performed By: #### C OMP #### [address] [address] Bili Total 0.9 mg/dL Normal 0.3-1.2 [facility] Comment on above: Performed By: #### C OMP #### [address] [address] Calcium [Mass/Vol] 8.7 mg/dL Normal 8.5-10.3 [facility] Comment on above: Performed By: #### C OMP #### [address] [place] [address] Chloride [Moles/Vol] 103 mmol/L Normal 98-110 [facility] Comment on above: Performed By: #### C OMP #### [address] [address] CO2 [Moles/Vol] 27 mmol/L Normal 22-32 [facility] Comment on above: Performed By: #### C OMP #### [address] [address] Creatinine [Mass/Vol] 0.87 mg/dL Normal 0.44-1.03 [facility] Comment on above: Performed By: #### C OMP #### [address] [address] Glucose [Mass/Vol] 146 mg/dL High 70-99 [facility] Comment on above: Performed By: #### C OMP #### [address] [address] Potassium [Moles/Vol] 3.5 mmol/L Normal 3.4-4.8 [facility] Comment on above: Performed By: #### C OMP #### [address] [address] Protein [Mass/Vol] 6.5 g/dL Normal 6.5-8.1 [facility] Comment on above: Performed By: #### C OMP #### [address] [address] Sodium [Moles/Vol] 138 mmol/L Normal 133-142 [facility] Comment on above: Performed By: #### C OMP #### [address] [address] Urea nitrogen [Mass/Vol] 10 mg/dL Normal 8-26 [facility] Comment on above: Performed By: #### C OMP #### [address] [address] Urea nitrogen/Creatinine [Mass ratio] 11.5 mg/mg Normal 10.0-20.0 [facility] Comment on above: Performed By: #### C OMP #### [address] [address] Diff Autoon 11-08-2021 Baso Absolute 0.0 x10*3/mcL Normal 0.0-0.2 [facility] Comment on above: Performed By: #### . Automated Diff #### [address] [address] Basophils/100 WBC (Bld) 0.5 % Normal 0.0-1.5 B [facility] Comment on above: Performed By: #### . Automated Diff #### [address] [address] Eos Absolute 0.0 x10*3/mcL Normal 0.0-0.4 [facility] Comment on above: Performed By: #### . Automated Diff #### [address] [address] Eosinophils/100 WBC (Bld) 1.1 % Normal 0.0-5.4 [facility] Comment on above: Performed By: #### . Automated Diff #### [address] [address] Lymph Absolute 1.0 x10*3/mcL Normal 1.0-4.8 [facility] Comment on above: Performed By: #### . Automated Diff #### [address] [address] Lymphocytes/100 WBC (Bld) 21.6 % Low 27.2-40.8 [facility] Comment on above: Performed By: #### . Automated Diff #### [address] [address] [place] Absolute 0.5 x10*3/mcL Normal 0.1-1.1 [facility] Comment on above: Performed By: #### . Automated Diff #### [address] [address] Monocytes/100 WBC (Bld) 11.2 % Normal 3.7-11.9 B [facility] Comment on above: Performed By: #### . Automated Diff #### [address] [address] Neutro Absolute 3.0 x10*3/mcL Normal 1.8-7.7 [facility] Comment on above: Performed By: #### . Automated Diff #### [address] [address] Neutro Auto 65.6 % Normal 47.2-70.8 [facility] Comment on above: Performed By: #### . Automated Diff #### [address] [address] ED Clinical Summaryon 2021 ED Clinical Summary [place] [id number] ED Clinical Summary Person Information Name: Nicki Oviedo [facility] Age: 46 Years : 1975 Sex: Female PCP: Marital Status: Single Phone: Race: White Ethnicity: Not or Language: [place] Visit Reason: Abdominal pain; Abdominal pain Acuity: 3 Enc Type: Emergency Med Service: Emergency Medicine Arrival: 11/07/2021 23:42:16 Discharge: 11/08/2021 01:25:00 LOS: 000 01:43 Checkin: 11/07/2021 23:42:16 Checkout: 11/08/2021 01:25:00 Dispo Type: Home or Self Care Address: [address] [place] [address] Provider Notes: Diagnosis: 1:Diffuse abdominal pain; 2:History of Crohn's disease Problems No Problems Documented Smoking Status: Smoking Status Never (less than 100 in lifetime) Functional Status: Sensory Deficits: History of Falls: Mobility Assistance Prior to Admission: ADLs: Current Level of Assistance for Self-Care/Mobility: Cognitive Status: Allergies NSAIDs (swelling) Compazine (shakiness) Phenergan (Shakiness) Reglan (Shakiness) contrast media (gadolinium-based) (itching) Laboratory or Other Results This Visit (last charted value for your 11/07/2021 visit) Hematology 11/08/2021 0:08 AM WBC: 4.6 x10 RBC: 4.22 x10 Neutro Auto: 65.6 % -- Normal range between ( 47.2 and 70.8 ) Lymph Auto: 21.6 % -- Normal range between ( 27.2 and 40.8 ) [place] Auto: 11.2 % -- Normal range between ( 3.7 and 11.9 ) Eos Auto: 1.1 % -- Normal range between ( 0.0 and 5.4 ) Basophil Auto: 0.5 % -- Normal range between ( 0.0 and 1.5 ) Baso Absolute: 0.0 x10 MCV: 85.7 fL -- Normal range between ( 80.0 and 100.0 ) MCHC: 33.3 % -- Normal range between ( 31.0 and 37.0 ) Lymph Absolute: 1.0 x10 Hct: 36.1 % -- Normal range between ( 36.0 and 46.0 ) [place] Absolute: 0.5 x10 MCH: 28.5 pg -- Normal range between ( 27.0 and 35.0 ) Neutro Absolute: 3.0 x10 Hgb: 12.0 g/dL -- Normal range between ( 12.0 and 16.0 ) Mean Platelet Volume: 7.0 fL -- Normal range between ( 6.7 and 10.6 ) Platelet: 212 x10 Eos Absolute: 0.0 x10 RDW: 15.3 % -- Normal range between ( 11.6 and 14.8 ) Urinalysis 11/08/2021 0:14 AM UA Color: Yellow UA Urobilinogen: Normal mg/dL UA Bili: Negative UA Ketones: Negative mg/dL UA Leukocyte Esterase: Negative UA Nitrite: Negative UA Glucose: 100 mg/dL UA Protein: 20 mg/dL UA Blood: 1+ UA Spec Grav: 1.032 -- Normal range between ( 1.003 and 1.035 ) UA pH: 5.5 UA Clarity: Turbid UA Source: Clean Catch UA Mucus: Present /LPF UA Hyline Cast Qual: 3-5 /LPF UA WBC Quant: 2 /HPF -- Normal range between ( 0 and 5 ) UA RBC Quant: 7 /HPF -- Normal range between ( 0 and 5 ) UA Squepi Cells Quant: 8 /HPF -- Normal range between ( 0 and 29 ) Chemistry 11/08/2021 0:08 AM Creatinine Lvl: 0.87 mg/dL -- Normal range between ( 0.44 and 1.03 ) BUN: 10 mg/dL -- Normal range between ( 8 and 26 ) Glucose Lvl: 146 mg/dL -- Normal range between ( 70 and 99 ) Potassium Lvl: 3.5 mmol/L -- Normal range between ( 3.4 and 4.8 ) AST: 35 IU/L -- Normal range between ( 15 and 41 ) ALT: 36 IU/L -- Normal range between ( 14 and 54 ) Sodium Lvl: 138 mmol/L -- Normal range between ( 133 and 142 ) Lipase Lvl: 28 IU/L -- Normal range between ( 22 and 51 ) Calcium Lvl: 8.7 mg/dL -- Normal range between ( 8.5 and 10.3 ) Albumin Lvl: 3.3 g/dL -- Normal range between ( 3.2 and 4.9 ) Total Protein: 6.5 g/dL -- Normal range between ( 6.5 and 8.1 ) Bili Total: 0.9 mg/dL -- Normal range between ( 0.3 and 1.2 ) Alk Phos: 53 IU/L -- Normal range between ( 32 and 91 ) Chloride: 103 mmol/L -- Normal range between ( 98 and 110 ) CO2: 27 mmol/L -- Normal range between ( 22 and 32 ) Anion Gap: 12 -- Normal range between ( 7 and 17 ) Estimated GFR: >60 mL/min/1.73m? BUN Crea Ratio: 11.5 -- Normal range between ( 10.0 and 20.0 ) Serum Preg: Negative AG Ratio: 1.0 -- Normal range between ( 1.1 and 2.2 ) Measurements: Height: Weight: 140 kg Blood Pressure: /80 mmHg BMI: Procedures No Procedures Documented Immunizations No Immunizations Documented This Visit Final Med List: New Medications [facility], [address], [place] [id number], [phone] methylPREDNISolone (Medrol 4 mg oral tablet) 1 Packets Oral (given by mouth) As Indicated for 6 Days. as directed on package labeling. Refills: 0. Last Dose: ____ Medications That Were Updated - Follow Current Instructions [facility], [address], [place] [id number], [phone] Current ondansetron (Zofran ODT 4 mg oral tablet, disintegrating) 1 Tabs Oral (given by mouth) 3 times a day as needed nausea/vomiting. Refills: 0. Last Dose: ____ Other Medications Current ondansetron (Zofran 4 mg oral tablet) 1 Tabs Oral (given by mouth) every 8 hours as needed naus (more content not included)... Normal [facility] ED Note-Physicianon 11-09-19 ED Note-Physician Chief Complaint Abdominal pain, N/V/D, hx of pancreatitis History of Present Illness Patient presents to ED c/o diffuse abdominal pain, diarrhea and vomiting over the past 1-2 days. She denies fever, vomiting, rectal bleeding, dysuria and hematuria. Symptoms are aggravated by pressure/movement and alleviated by nothing. Patient has had similar symptoms in the past w/a history of Crohn's. She has taken a Percocet earlier today w/out relief. Patient does reports a recent admission in [place] last month for abdominal pain, Crohn's flare and pancreatitis. Finished outpatient steroids 2 weeks ago. Patient has a history of appendectomy and cholecystectomy. Review of Systems General: [Negative for fever, chills, weakness, malaise] Head: [Negative for injury, pain] Eyes: [Negative for injury, redness, pain, discharge] Neck: [Negative for injury, pain, swelling, stiffness] Cardiovascular: [Negative for chest pain, palpitations, edema] Respiratory: [Negative for shortness of breath, cough, wheezing, pleuritic chest pain] Abdomen/GI: [Positive for diffuse abdominal pain, nausea, vomiting, diarrhea. Negative for distention, hematemesis, melena, hematochezia] : [Negative for frequency, dysuria, hematuria, hesitancy] Skin: [Negative for injury, rash, discoloration] All other systems reviewed are negative and normal Physical Exam General: [Alert, awake, afebrile, well hydrated, no apparent distress] Eyes: [PERRL, extraocular movements intact, clear conjunctiva] Head: [Normocephalic, atraumatic] Neck: [Non-tender, supple, no nuchal rigidity, full range of motion] Cardiovascular: [Regular rate and rhythm, no appreciated murmurs, normal S1 and S2, strong radial pulses w/intact distal perfusion] Respiratory: [Lungs clear to auscultation w/out wheezes, rhonchi, or rales, normal excursion, no accessory muscle use, no stridor] Abdomen/GI: [Diffuse tenderness to palpation. Soft all quadrants, non-distended, no palpable masses, no rebound, no guarding. Bowel sounds active in all quadrants] : [No costovertebral angle tenderness] Skin: [[place], warm, dry, no injury, no rashes] Neuro: [Alert and oriented x 3, GCS 15, Normal mentation and speech. Moves all extremities w/out motor or sensory deficit, gait is steady] Psych: [Normal mood and affect, thought process is clear and linear] Vitals & Measurements T: 37 ?C (Oral) HR: 88 (Peripheral) RR: 17 BP: 114/80 SpO2: 94% HT: 170.2 cm WT: 140 kg (Dosing) Additional Vitals No qualifying data available. Medical Decision Making The results of pertinent diagnostic studies and exam findings and clinical concerns were discussed with the patient. I explained that we do not have a definitive diagnosis for their symptoms at this time. It is possible there is an early developing process that will require recheck and further testing and possible treatment in the Emergency Department in 8-12 hours. They are to return to the ED in 8-12 hours for a recheck and earlier if they experience an increase or change in their pain, persistent vomiting, bleeding, fever or inability to take oral fluids. They expressed understanding that follow-up is essential, agreed with this plan and rationale, their questions were answered and felt comfortable going home Reexamination/Reevalu ation Patient is resting comfortably in room, no distress. Assessment/Plan 1. Diffuse abdominal pain Labs and vitals are stable. Patient is feeling better after medication. Will d/c home w/Rx for Medrol and Zofran and have her follow up w/PCP or her GI physician for recheck. She was advised to return for any worsening symptoms, inability to tolerate fluids, fever or other concerns. 2. History of Crohn's disease Orders: methylPREDNISolone, 1 packets, Oral, As Indicated, as directed on package labeling, X 6 days, # 21 tabs, 0 Refill(s), 11/14/21 1:03:00 EDT, Pharmacy: [facility] ondansetron, 1 tabs, Oral, TID, PRN, # 12 tabs, 0 Refill(s), Pharmacy: [facility] sodium chloride, 10 mL, IV Push, Injection, As Indicated, PRN flush, First Dose: 11/08/21 0:02:00 EDT, Dispense From Location: [id number], 11/08/21 0:02:00 EDT Discharge Patient NPO Peripheral IV Insert and Maintain Vital Signs Refresh vitals and sections below: Problem List/Past Medical History Ongoing No qualifying data Historical No qualifying data Medications Inpatient Dilaudid, 0.5 mg= 0.5 mL, IV Push, Once Normal Saline Flush 0.9% injectable solution, 10 mL, IV Push, As Indicated, PRN NS Bolus, 1000 mL, IV Bolus, Once ondansetron, 4 mg= 2 mL, IV Push, Once SOLU-Medrol, 125 mg= 2 mL, IV Push, Once Home dicyclomine 10 mg oral capsule, 20 mg= 2 caps, Oral, QID escitalopram 10 mg oral tablet, 10 mg= 1 tabs, Oral, Daily lisinopril 10 mg oral tablet, 10 mg= 1 tabs, Oral, Daily oxyCODONE-acetaminoph en 10 mg-325 mg oral tablet, 1 tabs, Oral, q8hr tiZANidine 4 mg oral tablet, 4 mg= 1 tabs, Oral, HS (at bedtime) traMADol 50 mg oral t (more content not included)... Normal [facility] Lipaseon 11-08-2021 Lipase Lvl 28 IU/L Normal 22-51 [facility] Comment on above: Performed By: #### L IP #### [address] [address] S Preg Qlon 11-08-2021 Serum Preg Negative Normal [facility] Comment on above: Result Comment: The hCG Combo Rapid Test has a sensitivity of 10 mIU/mL in serum and is capable of detecting as early as 1 day after the first missed menses. Performed By: #### S PTQ #### [address] [address] UA w Culture if Indon 2021 Color (U) Yellow Normal [facility] Comment on above: Performed By: #### E GFR #### [address] [address] Glucose (U) [Mass/Vol] 100 mg/dL Abnormal Negative [facility] Comment on above: Performed By: #### E GFR #### [address] [address] Ketones Ql (U) Negative Normal Negative [facility] Comment on above: Performed By: #### E GFR #### [address] [address] UA Blood 1+ Abnormal Negative [facility] Comment on above: Performed By: #### E GFR #### [address] [address] UA Clarity Turbid Normal [facility] Comment on above: Performed By: #### E GFR #### [address] [address] UA Leukocyte Esterase Negative Normal Negative [facility] Comment on above: Performed By: #### E GFR #### [address] [address] UA Nitrite Negative Normal Negative [facility] Comment on above: Performed By: #### E GFR #### [address] [address] UA pH 5.5 Normal 4.5 - 7.8 [facility] Comment on above: Performed By: #### E GFR #### [address] [address] UA Protein 20 mg/dL Normal Negative [facility] Comment on above: Performed By: #### E GFR #### [address] [address] UA Source Clean Catch Normal [facility] Comment on above: Performed By: #### E GFR #### [address] [address] UA Spec Grav 1.032 Normal 1.003-1.035 [facility] Comment on above: Performed By: #### E GFR #### [id number] [place] [address] UA Urobilinogen Normal Normal 0.2 - 1.0 [facility] Comment on above: Performed By: #### E GFR #### [address] [address] Urobilinogen (U) [Mass/Vol] Negative Normal Negative [facility] Comment on above: Performed By: #### E GFR #### [address] [address] CBC AND DIFFERENTIALon 09-15 % AUTOMATED IMMATURE GRAN 0.5 % Normal 0.0 - 0.9 [facility] Comment on above: Result Comment: Renita ture Granulocyte Count (IG) includes promyelocytes, myelocytes and metamyelocytes but does not include bands. Percent differential counts (%) should be interpreted in the context of the absolute cell counts (cells/L). Performed By: #### T RP #### [address] [id number] Basophils (Bld) [#/Vol] 0.03 10*3/uL Normal 0.00 - 0.1 0 [facility] Comment on above: Performed By: #### T RP #### [address] [id number] Basophils/100 WBC (Bld) 0.4 % Normal 0.0 - 2.0 U [facility] Comment on above: Performed By: #### T RPHS #### [address] [id number] Eosinophils (Bld) [#/Vol] 0.01 10*3/uL Normal 0.00 - 0.70 [facility] Comment on above: Performed By: #### T RPHS #### [address] [id number] Eosinophils/100 WBC (Bld) 0.1 % Normal 0.0 - 6.0 [facility] Comment on above: Performed By: #### T RPHS #### [address] [id number] Erythrocyte distribution width (RBC) [Ratio] 13.2 % Normal 11.5 - 14.5 [facility] Comment on above: Performed By: #### T RPHS #### [address] [id number] Hematocrit (Bld) [Volume fraction] 44.0 % Normal 36.0 - 46.0 [facility] Comment on above: Performed By: #### T RPHS #### [address] [id number] Hemoglobin (Bld) [Mass/Vol] 14.2 g/dL Normal 12.0 - 16.0 [facility] Comment on above: Performed By: #### T RPHS #### [address] [id number] Lymphocytes (Bld) [#/Vol] 0.77 10*3/uL Low 1.20 - 4.80 [facility] Comment on above: Performed By: #### T RPHS #### [address] [id number] Lymphocytes/100 WBC (Bld) 10.0 % Normal 13.0 - 44.0 [facility] Comment on above: Performed By: #### T RPHS #### [address] [id number] MCHC (RBC) [Mass/Vol] 32.3 g/dL Normal 32.0 - 36.0 [facility] Comment on above: Performed By: #### T RPHS #### [address] [id number] MCV (RBC) [Entitic vol] 86 fL Normal 80 - 100 U [facility] Comment on above: Performed By: #### T RPHS #### [address] [id number] Monocytes (Bld) [#/Vol] 0.09 10*3/uL Low 0.10 - 1.0 0 [facility] Comment on above: Performed By: #### T RPHS #### [address] [id number] Monocytes/100 WBC (Bld) 1.2 % Normal 2.0 - 10.0 U [facility] Comment on above: Performed By: #### T RPHS #### [address] [id number] Neutrophils (Bld) [#/Vol] 6.74 10*3/uL Normal 1.20 - 7.70 [facility] Comment on above: Performed By: #### T RPHS #### [address] [id number] Neutrophils/100 WBC (Bld) 87.8 % Normal 40.0 - 80.0 [facility] Comment on above: Performed By: #### T RPHS #### [address] [id number] Platelets (Bld) [#/Vol] 333 10*3/uL Normal 150 - 450 [facility] Comment on above: Performed By: #### T RPHS #### [address] [id number] RBC 5.12 x10E12/L Normal 4.00 - 5.20 [facility] Comment on above: Performed By: #### T RPHS #### [address] [id number] WBC (Bld) [#/Vol] 7.7 10*3/uL Normal 4.4 - 11.3 [facility] Comment on above: Performed By: #### T RPHS #### [address] [id number] COMPREHENSIVE PANELon 2021 Albumin [Mass/Vol] 4.0 g/dL Normal 3.4 - 5.0 [facility] Comment on above: Performed By: #### C MP #### [address] [id number] ALP [Catalytic activity/Vol] 66 U/L Normal 33 - 110 [facility] Comment on above: Performed By: #### C MP #### [address] [id number] ALT [Catalytic activity/Vol] 26 U/L Normal 7 - 45 [facility] Comment on above: Result Comment: Deisy ents treated with Sulfasalazine may generate falsely decreased results for ALT. Performed By: #### C MP #### [address] [id number] Anion gap [Moles/Vol] 14 mmol/L Normal 10 - 20 [facility] Comment on above: Performed By: #### C MP #### [address] [id number] AST [Catalytic activity/Vol] 18 U/L Normal 9 - 39 [facility] Comment on above: Performed By: #### C MP #### [address] [id number] Bilirubin [Mass/Vol] 0.5 mg/dL Normal 0.0 - 1.2 [facility] Comment on above: Performed By: #### C MP #### [address] [id number] Calcium [Mass/Vol] 9.3 mg/dL Normal 8.6 - 10.3 [facility] Comment on above: Performed By: #### C MP #### [address] [id number] Chloride [Moles/Vol] 99 mmol/L Normal 98 - 107 [facility] Comment on above: Performed By: #### C MP #### [address] [id number] Creatinine [Mass/Vol] 0.96 mg/dL Normal 0.50 - 1.05 [facility] Comment on above: Performed By: #### C MP #### [address] [id number] GFR/1.73 sq M.predicted among non-blacks MDRD (S/P/Bld) [Vol rate/Area] 75 mL/min/{1.73_m2} Normal >90 [facility] Comment on above: Result Comment: CALC ULATIONS OF ESTIMATED GFR ARE PERFORMED USING THE 2020 CKD-EPI STUDY REFIT EQUATION WITHOUT THE RACE VARIABLE FOR THE IDMS-TRACEABLE CREATININE METHODS. https://jasn.asnjournals.org/content/early//ASN.2020 141983 Performed By: #### C MP #### [address] [id number] Glucose [Mass/Vol] 370 mg/dL High 74 - 99 [facility] Comment on above: Performed By: #### C MP #### [address] [id number] HCO3 (Bld) [Moles/Vol] 25 mmol/L Normal 21 - 32 [facility] Comment on above: Performed By: #### C MP #### [address] [id number] Potassium [Moles/Vol] 4.8 mmol/L Normal 3.5 - 5.3 [facility] Comment on above: Performed By: #### C MP #### [address] [id number] Protein [Mass/Vol] 7.5 g/dL Normal 6.4 - 8.2 [facility] Comment on above: Performed By: #### C MP #### [address] [id number] Sodium [Moles/Vol] 133 mmol/L Low 136 - 145 [facility] Comment on above: Performed By: #### C MP #### [address] [id number] Urea nitrogen [Mass/Vol] 18 mg/dL Normal 6 - 23 [facility] Comment on above: Performed By: #### C MP #### [address] [id number] HCG,URINEon 09-15-2021 Beta HCG ( test) Ql (U) Negative Normal Negative [facility] Comment on above: Performed By: #### L ACT #### [address] [id number] LACTATEon 09-15-2021 Lactate [Moles/Vol] 2.0 mmol/L Normal 0.4 - 2.0 [facility] Comment on above: Result Comment: Delicia puncture immediately after or during the administration of Metamizole may lead to falsely low results. Testing should be performed immediately prior to Metamizole dosing. Performed By: #### L ACT #### [address] [id number] Lactate [Moles/Vol] 2.7 mmol/L High 0.4 - 2.0 [facility] Comment on above: Result Comment: Delicia puncture immediately after or during the administration of Metamizole may lead to falsely low results. Testing should be performed immediately prior to Metamizole dosing. Performed By: #### T RPHS #### [address] [id number] LIPASEon 09-15-2021 Lipase [Catalytic activity/Vol] 52 U/L Normal 9 - 82 [facility] Comment on above: Result Comment: Delicia puncture immediately after or during the administration of Metamizole may lead to falsely low results. Testing should be performed immediately prior to Metamizole dosing. O-atbnbb-q-benzoquinone imine (metabolite of Acetaminophen) will generate erroneously low results in samples for patients that have taken toxic doses of acetaminophen. Performed By: #### L IPAS #### [address] [id number] Provider Note - ED v3on 08-18 Provider Note - ED v3 Provider Note: Chart Review: ED NOTES ED NOTES: 46-year-old female with a history of Crohn's, diabetes presenting to the ED today with abdominal cramping and diarrhea that started yesterday. Patient states that she has been taking all of her Crohn's medications and has not had any foreign ingestion or sick contacts to cause her symptoms. She is unsure why her Crohn's could be flaring with states this feels like a flare of her Crohn's. She then developed nausea vomiting today so she came to the ER. She states that she is on Percocet for endometriosis pain but did not want to take any of this as she was vomiting and did not want to waste any of the Percocet. She denies any dark or bloody stools and states that she is having 3-4 episodes of diarrhea per day. No fever, chest pain or shortness of breath, cough or hemoptysis. She denies back pain, painful urination or blood in her urine. She denies any other drug use or alcohol use and states she does not smoke. She states that she is from [place] and is currently visiting in [facility]. No further pain or complaints at this time HISTORY OF PRESENTING ILLNESS NICKI is a 46 year old Female and was seen by me at 14-Sep-2021 23:17 for a chief complaint of abdominal pain ( I HAVE CROHN'S DISEASE AND I STARTED HAVING ABD PAIN AND DIARRHEA, VOMITING )(1). The historian is the patient. Triage Information: Most recent Vital Sign Value Date Temp (F): 96.9 09-14-2021 22:44 Temp (C): 36.1 09-14-2021 22:44 Heart Rate (beats/min): 101 09-14-2021 22:44 Respirations (breaths/min): 16 09-14-2021 22:44 SpO2 (%): 95 09-14-2021 22:44 BP Systolic (mm Hg): 144 09-14-2021 22:44 BP Diastolic (mm Hg): 99 09-14-2021 22:44 PAST MEDICAL HISTORY CURRENT OR FORMER SUBSTANCE USE: Tobacco/Nicotine Use: never smoker Alcohol Use: denies Drug Use: denies,ALLERGIES/INTO LERANCES: Allergy Allergen: contrast (specific type unknown) Type: Contrast Reaction: Itching Allergen: Compazine Type: Drug Reaction: Rash Allergen: Phenergan Type: Drug Reaction: Other Allergen: NSAIDs Type: Drug Category Reaction: Anaphylaxis HEALTH HISTORY: No documented data. OUTPATIENT MEDICATIONS: Home Medications Review Status for Reconciliation: Not Done Med Status: Incomplete Medication History Drug Name: Bactrim DS 800 mg-160 mg oral tablet Instructions: 1 tab(s) orally 2 times a day x 14 days Drug Name: dicyclomine 20 mg oral tablet Instructions: 1 tab(s) orally every 6 hours as needed for abdominal pain Drug Name: ondansetron 4 mg oral tablet, disintegrating Instructions: 1 tab(s) orally every 8 hours Drug Name: Percogesic Extra Strength 500 mg-12.5 mg oral tablet Instructions: 2 tab(s) orally every 6 hours Drug Name: Bentyl 20 mg oral tablet Instructions: 1 tab(s) orally 4 times a day, As Needed Drug Name: ondansetron 4 mg oral tablet, disintegrating Instructions: 1 tab(s) orally every 6 hours, As Needed SIGNIFICANT EVENTS: Past Medical History Description:Crohn's disease Description:Pancreati tis Description:Endometri osis Description:HTN Past Surgical History Description:ERCP Description:Appendect alysia Description:Cholecyst ectomy Description:right ovary removed REVIEW OF SYSTEMS All other systems reviewed and are negative PHYSICAL EXAM CONSTITUTIONAL: Well appearing, well nourished, awake, alert, oriented to person, place, time/situation and in no apparent distress. CARDIOVASCULAR: Normal rate, regular rhythm. Heart sounds S1, S2. No murmurs, rubs or gallops. no peripheral edema. RESPIRATORY: Breath sounds clear and equal bilaterally. GASTROINTESTINAL: Diffuse abdominal tenderness on my palpation without guarding or rebound. Abdomen soft nondistended with normal bowel sounds. No hernias or masses. GENITOURINARY: Negative CVA tenderness bilaterally MUSCULOSKELETAL: Normal gait and strength tone, no calf tenderness or swelling bilaterally. No lumbar spinal or paraspinal tenderness or signs of trauma. NEUROLOGICAL: Alert and oriented, speech normal SKIN: Skin normal color for race, warm, dry and intact. No evidence of trauma. CRITICAL CARE RESULTS: Recent Lab Results: I have reviewed these laboratory results: Urine Test 15-Sep-2021 01:40:00 ResultValue HCG, Urine NEGATIVE Urinalysis 15-Sep-2021 01:40:00 ResultValue Color, Urine STRAW Reference Range: STRAW,YELLOW Appearance, Urine CLEAR Specific [place], Urine 1.039 H pH, Urine 5.0 Protein, Urine NEGATIVE Glucose, Urine >=500 (3+) A Blood, Urine SMALL(1+) A Ketones, Urine NEGATIVE Bilirubin, Urine NEGATIVE Urobilinogen, Urine <2.0 Nitrite, Urine NEGATIVE Leukocyte Esterase, Urine NEGATIVE Urinalysis, Microscopic 15-Sep-2021 01:40:00 ResultValue White Cells 1 Red Blood Cells 2 Epithelial Cells, Squamous 1 Lactate, Level 15-Sep-2021 01:40:00 ResultValu (more content not included)... Normal [facility] Triage - EDon 09-15-2021 Triage - ED Quick Triage: Are You no Have You Given In The Last 6 Weeksno Are You Currently Breastfeedingno Chart Review: PRIMARY ASSESSMENT ABCD Normal Findings: airway open and patent, breathing normal, circulation normal and alert and oriented ARRIVAL INFORMATION Means of Arrival: Ambulatory Mode of Arrival: private vehicle Arrival From: home Accompanied By: self Language: Spoken Language Preferred: [place] Reading Language Preferred: [place] Legal Department Manager Requested: no conference interpreter was requested CHIEF COMPLAINT NICKI OVIEDO is a Female patient with a chief complaint of abdominal pain ( I HAVE CROHN'S DISEASE AND I STARTED HAVING ABD PAIN AND DIARRHEA, VOMITING ). Onset of the Complaint: 14-Sep-2021 22:44 Triage Date/Time: 14-Sep-2021 22:44 DIAN: 3 Pain Rating (0-10): 9 = Severe Pain location: ABD PAIN Vital Signs: Temperature: 96.9F ( 36.1C) Blood Pressure: 144/99 Mean: Heart Rate: 101 Respiratory Rate: 16 Pulse Oximetry: 95% on room air, no respiratory support. Height: 5 feet 7.00 inches. 170.1 CM Weight: 299.8 pounds. Calculated 136.0 kg. (stated) Calculated BMI (kg/m2): 47.003 Calculated BSA (m2) 2.53 Linda Coma Scale: Best Eye Response: (E4) spontaneous Best Motor Response: (M6) obeys commands Best Verbal Response: (V5) oriented Nordman Score: 15 Cough lasting greater than 3 weeks: no Patient immunocompromised related to: N/A Allergies: yes Last menstrual period: 18-May-2021 Patient has homicidal thoughts: no Symptoms Are POSITIVE For: diarrhea, nausea and vomiting. Symptoms Are Negative For: anorexia, constipation, diaphoresis, distention, fever and rectal blood. Risk Screens Suicide Risk Screen In the Past Month: Have you wished you were or wished you could go to sleep and not wake up no In the Past Month: Have you had any actual thoughts of killing yourself no In Your Lifetime: Have you ever done anything, started to do anything, or prepared to do anything to end your life no Timmons Fall Scale Screening Has the patient fallen before (or is the patient in the ED as a result of a fall) has not had a fall Does the patient have an impaired gait does not have impaired gait Is the patient cognitively impaired not cognitively impaired Interventions: Timmons Fall Interventions: LOW INTERVENTIONS: *patient oriented to surroundings and call system, * patient/family falls education completed and documented, *patients fall status communicated during bedside handoff, *whiteboard updated, *mode of toileting discussed with patient, *bed in low position with brakes locked, *call light in reach, * non-skid footwear PAST MEDICAL HISTORY Immunization History: Last Known Tetanus Immunization: Unknown TRAVEL HISTORY Travel History Coronavirus Screening: no exposure or symptoms Travel Exposure History: NO travel to International locations in the past 30 days PAIN Pain Scale Used: ROCKY Pain Rating (0-10): 9 = Severe Past Medical History: Past Medical History Reviewedyes right ovary removed: Past Surgical History, Active Cholecystectomy: Past Surgical History, Active Appendectomy: Past Surgical History, Active ERCP: Past Surgical History, Active HTN: Past Medical History, Active Endometriosis: Past Medical History, Active Pancreatitis: Past Medical History, Active Crohn's disease: Past Medical History, Active Electronic Signatures: Vonda Whiting (STAFF N) (Signed 14-Sep-2021 22:46) Entered: Risk Screens, Pain, Arrival, ABCD, Immunizations, Travel History, Chart Review, Scores, Past Medical History Authored: Quick Triage, Risk Screens, Pain, Arrival, ABCD, Immunizations, Travel History, Chart Review, Scores, Past Medical History Last Updated: 14-Sep-2021 22:46 by Vonda Whiting (STAFF N) Normal [facility] UA MICROSCOPICon 09-15-2021 RBC 2 /HPF Normal 0-5 [facility] Comment on above: Performed By: #### T RPHS #### [address] [phone] SQUAMOUS EPITH. CELLS 1 /HPF Normal [facility] Comment on above: Performed By: #### T RPHS #### [address] [id number] WBC 1 /HPF Normal 0-5 [facility] Comment on above: Performed By: #### T RPHS #### [address] [phone] URINALYSISon 09-15-2021 Appearance (U) CLEAR Normal CLEAR [facility] Comment on above: Performed By: #### L ACT #### [address] [id number] Bilirubin Ql (U) Negative Normal NEGATIVE [facility] Comment on above: Performed By: #### L ACT #### [address] [phone] Color (U) STRAW Normal STRAW,YELLOW [facility] Comment on above: Performed By: #### L ACT #### [address] [phone] Glucose Ql (U) >=500 (3+) Abnormal NEGATIVE [facility] Comment on above: Performed By: #### L ACT #### [address] [id number] Hemoglobin Ql (U) SMALL(1+) Abnormal NEGATIVE [facility] Comment on above: Performed By: #### L ACT #### [address] [id number] Ketones Ql (U) Negative Normal NEGATIVE [facility] Comment on above: Performed By: #### L ACT #### [address] [id number] Leukocyte esterase Test strip Ql (U) Negative Normal NEGATIVE [facility] Comment on above: Performed By: #### L ACT #### [address] [id number] Nitrite Ql (U) Negative Normal NEGATIVE [facility] Comment on above: Performed By: #### L ACT #### [address] [id number] pH (U) 5.0 [pH] Normal 5.0 - 8.0 [facility] Comment on above: Performed By: #### L ACT #### [address] [id number] Protein Ql (U) Negative Normal NEGATIVE [facility] Comment on above: Performed By: #### L ACT #### [address] [id number] Specific gravity (U) [Rel density] 1.039 High 1.005 - 1.035 [facility] Comment on above: Performed By: #### L ACT #### [address] [phone] Urobilinogen (U) [Mass/Vol] mg/dL Normal 0.0 - 1.9 [facility] Comment on above: Performed By: #### L ACT #### [address] [phone] Albumin [Mass/volume] in Ser um or PlasmaOrdered By: Johnnie Pearson on 09-14-2021 Albumin [Mass/Vol] 3.5 g/dL 3.2-5.5 [facility] Basophils Auto (Bld) [#/Vol] Ordered By: Johnnie Pearson on 09-14-2021 Basophils (Bld) [#/Vol] 0.0 10*3/uL 0.0-0.2 [facility] Basophils/100 WBC Auto (Bld) Ordered By: Johnnie Pearson on 09-14-2021 Basophils/100 WBC (Bld) 0.4 % [facility] Blood hemoglobin measurement (mass/volume)Ordered By: Johnnie Pearson on 09-14-2021 Hemoglobin (Bld) [Mass/Vol] 15.1 g/dL 11.8-15.4 [facility] Blood leukocytes automated c ount (number/volume)Ordered By: Johnnie Pearson on 09-14-2021 WBC (Bld) [#/Vol] 6.6 10*3/uL 4.5-11.0 [facility] Creatinine and Glomerular fi ltration rate.predicted panel (S/P/Bld)Ordered By: Johnnie Pearson on 09-14-2021 Creatinine [Mass/Vol] 1.02 mg/dL 0.44-1.03 [facility] Eosinophils Auto (Bld) [#/Vo l]Ordered By: Johnnie Pearson on 09-14-2021 Eosinophils (Bld) [#/Vol] 0.1 10*3/uL 0.0-0.45 [facility] Eosinophils/100 WBC Auto (Bl d)Ordered By: Johnnie Pearson on 09-14-2021 Eosinophils/100 WBC (Bld) 1.0 % [facility] Erythrocyte distribution wid th Auto (RBC) [Ratio]Ordered By: Johnnie Pearson on 09-14-2021 Erythrocyte distribution width (RBC) [Ratio] 14.2 % 11.9-15.3 [facility] Erythrocyte sedimentation ra te by Photometric methodOrdered By: Johnnie Pearson on 09-14-2021 ESR Photometric method (Bld) [Velocity] 42 mm/hr 0-19 [facility] Estimated glomerular filtrat ion rate (GFR) non- AmericanOrdered By: Johnnie Pearson on 09-14-2021 GFR/1.73 sq M.predicted among non-blacks MDRD (S/P/Bld) [Vol rate/Area] 59 mL/Min [facility] Globulin Calc (S) [Mass/Vol] Ordered By: Johnnie Pearson on 09-14-2021 Globulin (S) [Mass/Vol] 3.6 g/dL [facility] Hematocrit Auto (Bld) [Volum e fraction]Ordered By: Johnnie Pearson on 09-14-2021 Hematocrit (Bld) [Volume fraction] 45.6 % 34.0-46.4 [facility] Laboratory - Chemistry and C hemistry - challengeOrdered By: Johnnie Pearson on 09-14-2021 Lipase [Catalytic activity/Vol] 50.0 U/L [facility] - Hematology and Cell countsOrdered By: Johnnie Pearson on 09-14-2021 Nucleated RBC/100 WBC (Bld) [Ratio] 0.0 % 0-0.5 [facility] Lymphocytes Auto (Bld) [#/Vo l]Ordered By: Johnnie Pearson on 09-14-2021 Lymphocytes (Bld) [#/Vol] 2.2 10*3/uL 1.00-4.8 [facility] Lymphocytes/100 WBC Auto (Bl d)Ordered By: Johnnie Pearson on 09-14-2021 Lymphocytes/100 WBC (Bld) 33.6 % [facility] MCH Auto (RBC) [Entitic mass ]Ordered By: Johnnie Pearson on 09-14-2021 MCH (RBC) [Entitic mass] 28.4 pg 24.7-34.3 [facility] MCHC Auto (RBC) [Mass/Vol]Or dered By: Johnnie Pearson on 09-14-2021 MCHC (RBC) [Mass/Vol] 33.2 g/dL 32.0-35.0 [facility] MCV Auto (RBC) [Entitic vol] Ordered By: Johnnie Pearson on 09-14-2021 MCV (RBC) [Entitic vol] 85.4 fL 80-100 [facility] Monocytes Auto (Bld) [#/Vol] Ordered By: Johnnie Pearson on 09-14-2021 Monocytes (Bld) [#/Vol] 0.6 10*3/uL 0.0-0.8 [facility] Monocytes/100 WBC Auto (Bld) Ordered By: Johnnie Pearson on 09-14-2021 Monocytes/100 WBC (Bld) 9.1 % [facility] Neutrophils Auto (Bld) [#/Vo l]Ordered By: Johnnie Pearson on 09-14-2021 Neutrophils (Bld) [#/Vol] 3.7 10*3/uL 1.8-7.7 [facility] Neutrophils/100 WBC Auto (Bl d)Ordered By: Johnnie Pearson on 09-14-2021 Neutrophils/100 WBC (Bld) 55.9 % [facility] No Panel InformationOrdered By: Johnnie Pearson on 09-14-2021 Estimated GFR () > 60 mL/Min [facility] Comment on above: GFR estimated refere nce range: According to KDOQI guidelines, <60 ml/min/1.73m2 is sufficient to diagnose a patient with chronic kidney disease. Pharmacy Creatinine Clearance (Chem 102.00 [facility] Platelet mean volume Auto (B ld) [Entitic vol]Ordered By: Johnnie Pearson on 09-14-2021 Platelet mean volume (Bld) [Entitic vol] 7.5 fL 6.3-10.7 [facility] Platelets Auto (Bld) [#/Vol] Ordered By: Johnnie Pearson on 09-14-2021 Platelets (Bld) [#/Vol] 343 10*3/uL 150-450 [facility] Protein [Mass/volume] in Ser um or PlasmaOrdered By: Johnnie Pearson on 09-14-2021 Protein [Mass/Vol] 7.1 g/dL 6.1-7.9 [facility] RBC Auto (Bld) [#/Vol]Ordere d By: Johnnie Pearson on 09-14-2021 RBC (Bld) [#/Vol] 5.33 10*6/uL 3.60-5.00 [facility] Serum or plasma C reactive p rotein measurement (mass/volume)Ordered By: Johnnie Pearson on 09-14-2021 CRP [Mass/Vol] 1.1 mg/dL 0.0-1.0 [facility] Serum or plasma alanine villalobos otransferase measurement without P-5'-P (enzymatic activiOrdered By: Johnnie Pearson on 09-14-2021 ALT No additional P-5'-P [Catalytic activity/Vol] 30 U/L 10-60 [facility] Serum or plasma albumin/glob ulin mass ratioOrdered By: Johnnie Pearson on 09-14-2021 Albumin/Globulin [Mass ratio] 1.0 {ratio} [facility] Serum or plasma alkaline zan sphatase measurement (enzymatic activity/volume)Ordered By: Johnnie Pearson on 09-14-2021 ALP [Catalytic activity/Vol] 66 U/L 32-92 [facility] Serum or plasma aspartate am inotransferase measurement (enzymatic activity/volume)Ordered By: Johnnie Pearson on 09-14-2021 AST [Catalytic activity/Vol] 20 U/L 10-42 [facility] Serum or plasma calcium rosa m urement (mass/volume)Ordered By: Johnnie Pearson on 09-14-2021 Calcium [Mass/Vol] 9.5 mg/dL 8.2-10.2 [facility] Serum or plasma chloride joshua surement (moles/volume)Ordered By: Johnnie Pearson on 09-14-2021 Chloride [Moles/Vol] 100 mmol/L 95-114 [facility] Serum or plasma glucose rosa m urement (mass/volume)Ordered By: Johnnie Pearson on 09-14-2021 Glucose [Mass/Vol] 186 mg/dL 70-100 [facility] Comment on above: ADA recommended refe rence rangeRandom Glucose Reference Range is dependent on time and content of last meal. Glucose of more than 200 mg/dL in a nonstressed, ambulatory subject supports the diagnosis of Diabetes Mellitus. Serum or plasma potassium me asurement (moles/volume)Ordered By: Johnnie Pearson on 09-14-2021 Potassium [Moles/Vol] 4.0 mmol/L 3.5-5.1 [facility] Serum or plasma sodium measu rement (moles/volume)Ordered By: Johnnie Pearson on 09-14-2021 Sodium [Moles/Vol] 135 mmol/L 136-146 [facility] Serum or plasma total biliru bin measurement (mass/volume)Ordered By: Johnnie Pearson on 09-14-2021 Bilirubin [Mass/Vol] 0.4 mg/dL 0.3-1.2 [facility] Serum or plasma total carbon dioxide measurement (moles/volume)Ordered By: Johnnie Pearson on 09-14-2021 CO2 [Moles/Vol] 24.8 mmol/L 22.0-30.0 [facility] Serum or plasma urea nitroge n measurement (mass/volume)Ordered By: Jonhnie Pearson on 09-14-2021 Urea nitrogen [Mass/Vol] 15 mg/dL 9-23 [facility] C-REACTIVE PROTEINon 022 CRP [Mass/Vol] 7.6 mg/L High 0.0-5.0 [facility] Comment on above: Performed By: #### C RP2 #### WIRE BRUSHER: AJAY [facility] [address] [place] [address] CBC-MANUAL DIFF IF INDon IMMATURE GRAN., TOTAL 0.01 10*3/uL Normal 0.00-0.[address] [facility] Comment on above: Result Comment: The Immature Granulocytes, Total represents an automated count of Metamyelocytes, Myelocytes, and Promyelocytes, and is NOT included in the Neutrophils, Total count. Performed By: #### C BC3 #### WIRE BRUSHER: AJAY ARIAS [facility] [address] [place] [address] IMMATURE GRANULOCYTE % 0.2 % Normal 0.0-0.4 [facility] Comment on above: Performed By: #### C BC3 #### WIRE BRUSHER: [facility] [address] [place] [address] ANISOCYTOSIS cancelled Normal NONE-1+ [facility] Comment on above: Performed By: #### C BC3 #### WIRE BRUSHER: AJAY ARIAS [facility] [address] [place] [address] BASOPHIL % 0.5 % Normal 0.0-2.0 [facility] Comment on above: Performed By: #### C BC3 #### WIRE BRUSHER: [facility] [address] [place] [address] BASOPHILS, TOTAL 0.0 10*3/uL Normal 0.0-0.1 [facility] Comment on above: Performed By: #### C BC3 #### WIRE BRUSHER: [facility] [address] [place] [address] EOSINOPHIL % 1.3 % Normal 0.0-10.0 [facility] Comment on above: Performed By: #### C BC3 #### WIRE BRUSHER: [facility] [address] [place] [address] EOSINOPHILS, TOTAL 0.1 10*3/uL Normal 0.0-0.7 [facility] Comment on above: Performed By: #### C BC3 #### WIRE BRUSHER: [facility] [address] [place] [address] HYPOCHROMIA cancelled Normal NONE-1+ [facility] Comment on above: Performed By: #### C BC3 #### WIRE BRUSHER: AJAY K [facility] [address] [place] [address] LYMPHOCYTE % 28.3 % Normal 22.0-69.0 [facility] Comment on above: Performed By: #### C BC3 #### WIRE BRUSHER: AJAY [facility]AS [facility] [address] [place] [address] LYMPHOCYTES, TOTAL 1.8 10*3/uL Normal 1.5-3.5 [facility] Comment on above: Performed By: #### C BC3 #### WIRE BRUSHER: AJAY [facility] [address] [place] [address] MACROCYTOSIS cancelled Normal NONE-1+ [facility] Comment on above: Performed By: #### C BC3 #### WIRE BRUSHER: AJAY [facility] [address] [place] [address] MCH 28.7 pg Normal 27.0-31.0 [facility] Comment on above: Performed By: #### C BC3 #### WIRE BRUSHER: AJAY [facility] [address] [place] [address] MCHC 33.3 g/dL Normal 32.0-36.0 [facility] Comment on above: Performed By: #### C BC3 #### WIRE BRUSHER: AJAY [facility] [address] [place] [address] MCV 86.2 fL Normal 78.0-100.0 [facility] Comment on above: Performed By: #### C BC3 #### WIRE BRUSHER: AJAY [facility] [address] [place] [address] MICROCYTOSIS cancelled Normal NONE-1+ [facility] Comment on above: Performed By: #### C BC3 #### WIRE BRUSHER: AJAY [facility] [address] [place] [address] MONOCYTE % 12.3 % Normal 2.0-14.0 [facility] Comment on above: Performed By: #### C BC3 #### WIRE BRUSHER: AJAY [facility] [address] [place] [address] MONOCYTES, TOTAL 0.8 10*3/uL Normal 0.0-1.0 [facility] Comment on above: Performed By: #### C BC3 #### WIRE BRUSHER: AJAY [facility]AS [facility] [address] [place] [address] MPV 9.6 fL Normal 8.7-12.3 [facility] Comment on above: Performed By: #### C BC3 #### WIRE BRUSHER: AJAY [facility] [address] [place] [address] NEUTROPHIL % 57.4 % Normal 47.0-76.0 [facility] Comment on above: Performed By: #### C BC3 #### WIRE BRUSHER: AJAY [facility] [address] [place] [address] NEUTROPHILS, TOTAL 3.6 10*3/uL Normal 1.5-6.6 [facility] Comment on above: Performed By: #### C BC3 #### WIRE BRUSHER: AJAY [facility] [address] [place] [address] PLATELETS 262 10*3/uL Normal 150-450 [facility] Comment on above: Performed By: #### C BC3 #### WIRE BRUSHER: AJAY [facility] [address] [place] [address] RDW-CV 13.2 % Normal 11.5-14.0 [facility] Comment on above: Performed By: #### C BC3 #### WIRE BRUSHER: AJAY [facility] [address] [place] [address] RDW-SD 40.8 fL Normal 36.0-50.0 [facility] Comment on above: Performed By: #### C BC3 #### WIRE BRUSHER: AJAY [facility] [address] [place] [address] RED BLOOD CELLS 4.42 10*6/uL Normal 4.20-5.40 [facility] Comment on above: Performed By: #### C BC3 #### WIRE BRUSHER: AJAY ARIAS [facility] [address] [place] [address] WHITE BLOOD CELLS 6.2 10*3/uL Normal 4.0-10.5 [facility] Comment on above: Performed By: #### C BC3 #### WIRE BRUSHER: AJAY ARIAS [facility] [address] [place] [address] LIPASEon 07-09-2021 Lipase [Catalytic activity/Vol] 33 U/L Normal 13-60 [facility] Comment on above: Performed By: #### L IPAS #### WIRE BRUSHER[facility] [address] METABOLIC PANEL, COMPREHENSI VEon 07-09-2021 Albumin [Mass/Vol] 3.8 g/dL Normal 3.5-5.0 [facility] Comment on above: Performed By: #### C MP #### WIRE BRUSHER[facility] [address] [place] [address] ALP [Catalytic activity/Vol] 69 U/L Normal 35-105 [facility] Comment on above: Result Comment: Resu lt may be affected by hemolysis Performed By: #### C MP #### WIRE BRUSHER: AJAY ARIAS [facility] [address] [place] [address] ALT [Catalytic activity/Vol] 32 U/L Normal 0-33 [facility] Comment on above: Result Comment: Resu lt may be affected by hemolysis Performed By: #### C MP #### WIRE BRUSHER: [facility] [address] [place] [address] Anion gap [Moles/Vol] 9 mmol/L Normal 7-16 [facility] Comment on above: Performed By: #### C MP #### WIRE BRUSHER: [facility] [address] [place] [address] AST [Catalytic activity/Vol] 34 U/L High 0-32 [facility] Comment on above: Result Comment: Resu lt may be affected by hemolysis Performed By: #### C MP #### WIRE BRUSHER: AJAY [facility]AS [facility] [address] [place] [address] Bilirubin [Mass/Vol] 0.3 mg/dL Normal 0.0-1.0 [facility] Comment on above: Performed By: #### C MP #### WIRE BRUSHER: AJAY YOULM [facility] [address] [place] [address] Calcium [Mass/Vol] 9.1 mg/dL Normal 8.4-10.2 [facility] Comment on above: Performed By: #### C MP #### WIRE BRUSHER: AJAY YOULM [facility] [address] [place] [address] Chloride [Moles/Vol] 97 mmol/L Low 98-107 [facility] Comment on above: Performed By: #### C MP #### WIRE BRUSHER: AJAY YOULM [facility] [address] [place] [address] CO2 [Moles/Vol] 28 mmol/L Normal 22-29 [facility] Comment on above: Performed By: #### C MP #### WIRE BRUSHER: AJAY YOULM [facility] [address] [place] [address] Creatinine [Mass/Vol] 0.9 mg/dL Normal 0.5-0.9 [facility] Comment on above: Performed By: #### C MP #### WIRE BRUSHER: AJAY YOULM [facility] [address] [place] [address] GFR/1.73 sq M.predicted MDRD (S/P/Bld) [Vol rate/Area] 78 mL/min/{1.73_m2} Abnormal [facility] Comment on above: Result Comment: GFR CATEGORIES IN CKD: Gl >=90 normal or high G2 60-89 mildly decreased G3a 45-59 mildly to moderately decreased G3b 30-44 moderately to severely decreased G4 15-29 severely decreased G5 <15 kidney failure The eGFR metric is an estimate of renal function and best used in individuals with stable serum creatinine concentrations. The metric is calculated using the CKD-EPI equation based upon serum creatinine, age (age 18 and above), sex and normalized to 1.73 m2 body surface area. Race correction factor is currently excluded from CKP-EPI equation as recommended by National Kidney Foundation and [place] [employer]ph[employer] Task Force (2020). The calculation is imprecise due to physiological limitations of using serum creatinine as a filtration marker, and individual variability in muscle mass and nutritional status. Performed By: #### C MP #### WIRE BRUSHER: AJAY Abreu [facility] [address] [place] [address] Glucose [Mass/Vol] 147 mg/dL High 74-99 [facility] Comment on above: Performed By: #### C MP #### WIRE BRUSHER: AJAY [facility]u [facility] [address] [place] [address] Potassium [Moles/Vol] 5.3 mmol/L High 3.5-5.1 [facility] Comment on above: Result Comment: Resu lt may be affected by hemolysis Performed By: #### C MP #### WIRE BRUSHER: AJAY [facility]breu [facility] [employer] [facility] [address] [place] [address] Protein [Mass/Vol] 6.8 g/dL Normal 6.4-8.3 [facility] Comment on above: Performed By: #### C MP #### WIRE BRUSHER: AJAY Abreu [facility] [address] [place] [address] Sodium [Moles/Vol] 134 mmol/L Low 136-145 [facility] Comment on above: Performed By: #### C MP #### WIRE BRUSHER: AJAY Abreu [facility] [address] [place] [address] UN/CREA RATIO 10 {ratio} Low 12-20 [facility] Comment on above: Performed By: #### C MP #### WIRE BRUSHER: AJAY Abreu [facility] [address] [place] [address] Urea nitrogen [Mass/Vol] 9 mg/dL Normal 6-20 [facility] Comment on above: Performed By: #### C MP #### WIRE BRUSHER: AJAY ARIAS [facility] [address] [place] [address] SED RATE (WESTERGREN)on 06-19 SED RATE (WESTERGREN) 21 mm/h High 0-20 [facility] Comment on above: Performed By: #### S EDW #### WIRE BRUSHER: AJAY ARIAS [facility] [address] [place] [address] BASIC METABOLIC PANELon 05-19 Anion gap [Moles/Vol] 15 mmol/L Normal 10 - 20 [facility] Comment on above: Performed By: #### T RP #### [address] [id number] Calcium [Mass/Vol] 9.7 mg/dL Normal 8.6 - 10.3 [facility] Comment on above: Performed By: #### T RP #### [address] [id number] Chloride [Moles/Vol] 100 mmol/L Normal 98 - 107 [facility] Comment on above: Performed By: #### T RP #### [address] [id number] Creatinine [Mass/Vol] 1.02 mg/dL Normal 0.50 - 1.05 [facility] Comment on above: Performed By: #### T RPHS #### [address] [id number] GFR- AM. 71 mL/min/1.73m2 Normal >60 [facility] Comment on above: Result Comment: CALC ULATIONS OF ESTIMATED GFR ARE PERFORMED USING THE MDRD STUDY EQUATION FOR THE IDMS-TRACEABLE CREATININE METHODS. CLIN CHEM 2007;53:766-72 Performed By: #### T RPHS #### [address] [id number] GFR-NON AM. 59 mL/min/1.73m2 Abnormal >60 [facility] Comment on above: Performed By: #### T RP #### [address] [id number] Glucose [Mass/Vol] 141 mg/dL High 74 - 99 [facility] Comment on above: Performed By: #### T RP #### [address] [id number] HCO3 (Bld) [Moles/Vol] 24 mmol/L Normal 21 - 32 [facility] Comment on above: Performed By: #### T RP #### [address] [id number] Potassium [Moles/Vol] 4.2 mmol/L Normal 3.5 - 5.3 [facility] Comment on above: Performed By: #### T RP #### [address] [id number] Sodium [Moles/Vol] 135 mmol/L Low 136 - 145 [facility] Comment on above: Performed By: #### T RP #### [address] [id number] Urea nitrogen [Mass/Vol] 15 mg/dL Normal 6 - 23 [facility] Comment on above: Performed By: #### T RP #### [address] [id number] CBC AND DIFFERENTIALon 06-08 % AUTOMATED IMMATURE GRAN 0.4 % Normal 0.0 - 0.9 [facility] Comment on above: Result Comment: Renita ture Granulocyte Count (IG) includes promyelocytes, myelocytes and metamyelocytes but does not include bands. Percent differential counts (%) should be interpreted in the context of the absolute cell counts (cells/L). Performed By: #### B MP #### [address] [id number] Basophils (Bld) [#/Vol] 0.04 10*3/uL Normal 0.00 - 0.1 0 [facility] Comment on above: Performed By: #### B MP #### [address] [id number] Basophils/100 WBC (Bld) 0.7 % Normal 0.0 - 2.0 [facility] Comment on above: Performed By: #### B MP #### [address] [id number] Eosinophils (Bld) [#/Vol] 0.04 10*3/uL Normal 0.00 - 0.70 [facility] Comment on above: Performed By: #### B MP #### [address] [id number] Eosinophils/100 WBC (Bld) 0.7 % Normal 0.0 - 6.0 [facility] Comment on above: Performed By: #### B MP #### [address] [id number] Erythrocyte distribution width (RBC) [Ratio] 12.5 % Normal 11.5 - 14.5 [facility] Comment on above: Performed By: #### B MP #### [address] [id number] Hematocrit (Bld) [Volume fraction] 41.1 % Normal 36.0 - 46.0 [facility] Comment on above: Performed By: #### B MP #### [address] [id number] Hemoglobin (Bld) [Mass/Vol] 13.2 g/dL Normal 12.0 - 16.0 [facility] Comment on above: Performed By: #### B MP #### [address] [id number] Lymphocytes (Bld) [#/Vol] 2.25 10*3/uL Normal 1.20 - 4.80 [facility] Comment on above: Performed By: #### B MP #### [address] [id number] Lymphocytes/100 WBC (Bld) 40.6 % Normal 13.0 - 44.0 [facility] Comment on above: Performed By: #### B MP #### [address] [id number] MCHC (RBC) [Mass/Vol] 32.1 g/dL Normal 32.0 - 36.0 [facility] Comment on above: Performed By: #### B MP #### [address] [id number] MCV (RBC) [Entitic vol] 90 fL Normal 80 - 100 [facility] Comment on above: Performed By: #### B MP #### [address] [id number] Monocytes (Bld) [#/Vol] 0.49 10*3/uL Normal 0.10 - 1.0 0 [facility] Comment on above: Performed By: #### B MP #### [address] [id number] Monocytes/100 WBC (Bld) 8.8 % Normal 2.0 - 10.0 [facility] Comment on above: Performed By: #### B MP #### [address] [id number] Neutrophils (Bld) [#/Vol] 2.70 10*3/uL Normal 1.20 - 7.70 [facility] Comment on above: Performed By: #### B MP #### [address] [id number] Neutrophils/100 WBC (Bld) 48.8 % Normal 40.0 - 80.0 [facility] Comment on above: Performed By: #### B MP #### [address] [id number] Platelets (Bld) [#/Vol] 360 10*3/uL Normal 150 - 450 [facility] Comment on above: Performed By: #### B MP #### [address] [id number] RBC 4.58 x10E12/L Normal 4.00 - 5.20 [facility] Comment on above: Performed By: #### B MP #### [address] [id number] WBC (Bld) [#/Vol] 5.5 10*3/uL Normal 4.4 - 11.3 [facility] Comment on above: Performed By: #### B MP #### [address] [id number] HEPATIC FUNCTION PANELon Albumin [Mass/Vol] 4.3 g/dL Normal 3.4 - 5.0 [facility] Comment on above: Performed By: #### B MP #### [address] [id number] ALP [Catalytic activity/Vol] 75 U/L Normal 33 - 110 [facility] Comment on above: Performed By: #### B MP #### [address] [id number] ALT [Catalytic activity/Vol] 26 U/L Normal 7 - 45 [facility] Comment on above: Result Comment: Deisy ents treated with Sulfasalazine may generate falsely decreased results for ALT. Performed By: #### B MP #### [address] [id number] AST [Catalytic activity/Vol] 21 U/L Normal 9 - 39 [facility] Comment on above: Performed By: #### B MP #### [address] [id number] Bilirubin [Mass/Vol] 0.4 mg/dL Normal 0.0 - 1.2 [facility] Comment on above: Performed By: #### B MP #### [address] [id number] Bilirubin.indirect [Mass/Vol] 0.1 mg/dL Normal 0.0 - 0.3 [facility] Comment on above: Performed By: #### B MP #### [address] [id number] Protein [Mass/Vol] 7.6 g/dL Normal 6.4 - 8.2 [facility] Comment on above: Performed By: #### B MP #### [address] [id number] LACTATEon 06-08-2021 Lactate [Moles/Vol] 1.3 mmol/L Normal 0.4 - 2.0 [facility] Comment on above: Result Comment: Delicia puncture immediately after or during the administration of Metamizole may lead to falsely low results. Testing should be performed immediately prior to Metamizole dosing. Performed By: #### B MP #### [address] [id number] LIPASEon 06-08-2021 Lipase [Catalytic activity/Vol] 38 U/L Normal 9 - 82 [facility] Comment on above: Result Comment: Delicia puncture immediately after or during the administration of Metamizole may lead to falsely low results. Testing should be performed immediately prior to Metamizole dosing. V-qcukhb-w-benzoquinone imine (metabolite of Acetaminophen) will generate erroneously low results in samples for patients that have taken toxic doses of acetaminophen. Performed By: #### B MP #### [address] [id number] Provider Note - ED v3on 05-19 Provider Note - ED v3 Provider Note: Chart Review: ED NOTES ED NOTES: Patient is a 45-year-old female who presents with complaint of persistent abdominal pain from her Crohn's disease. She reports diffuse lower abdominal pain with nausea and diarrhea. Patient states that she has been seen in the hospital recently for similar symptoms. She reports this is her typical Crohn's flareup. She is visiting here from [place]. The pain is described as sharp and stabbing is constant. She denies any chest pain, palpitations, cough or shortness of breath. Her last bowel movement was this morning it was liquid stool but denies any hematochezia. Her past medical history is positive for Crohn's disease, hypertension, and arteriosus, pancreatitis and type 2 diabetes. Currently is waiting for a new medication Ozempic. Surgical history includes appendectomy, cholecystectomy and a right-sided nephrectomy back in 2016. Social history she denies any tobacco alcohol or drug use. Family history was reviewed and is noncontributory. HISTORY OF PRESENTING ILLNESS NICKI is a 45 year old Female and was seen by me at 08-Jun-2021 07:04 for a chief complaint of abdominal pain ( lower abdominal pain with nausea, vomiting, diarrhea )(1). The historian is the patient. Triage Information: Most recent Vital Sign Value Date Temp (F): 97.1 06-08-2021 04:11 Temp (C): 36.2 06-08-2021 04:11 Heart Rate (beats/min): 91 06-08-2021 04:11 Respirations (breaths/min): 18 06-08-2021 04:11 SpO2 (%): 97 06-08-2021 04:11 BP Systolic (mm Hg): 176 06-08-2021 04:11 BP Diastolic (mm Hg): 100 06-08-2021 04:11 PAST MEDICAL HISTORY PSYCHOSOCIAL SCREENING: NO: concerns for safety at home, feelings of depression, feels like hurting others and feels like hurting self CURRENT OR FORMER SUBSTANCE USE: Tobacco/Nicotine Use: never smoker Alcohol Use: denies Drug Use: denies,Drug 2 Use: denies ALLERGIES/INTOLERANCE S: Allergy Allergen: contrast (specific type unknown) Type: Contrast Reaction: Itching Allergen: Compazine Type: Drug Reaction: Rash Allergen: Phenergan Type: Drug Reaction: Other Allergen: NSAIDs Type: Drug Category Reaction: Anaphylaxis HEALTH HISTORY: No documented data. OUTPATIENT MEDICATIONS: Home Medications Review Status for Reconciliation: N/A Med Status: Incomplete Medication History Drug Name: Bactrim DS 800 mg-160 mg oral tablet Instructions: 1 tab(s) orally 2 times a day x 14 days SIGNIFICANT EVENTS: Past Medical History Description:Crohn's disease Description:Pancreati tis Description:Endometri osis Description:HTN Past Surgical History Description:ERCP Description:Appendect alysia Description:Cholecyst ectomy Description:right ovary removed REVIEW OF SYSTEMS CONSTITUTIONAL: POSITIVE for: malaise Negative for: chills and fever CARDIOVASCULAR: Negative for: chest pain RESPIRATORY: Negative for: dyspnea GASTROINTESTINAL: POSITIVE for: abdominal pain, diarrhea, nausea and vomiting; change in bowel habits Negative for: constipation; hematochezia and melena All other systems reviewed and are negative PHYSICAL EXAM CONSTITUTIONAL: Well appearing, well nourished, awake, alert, oriented to person, place, time/situation and in no apparent distress. HENMT: Airway patent, ears with clear tympanic membranes bilaterally. Nasal mucosa clear. Mouth with normal mucosa. Throat has no vesicles, no oropharyngeal exudates and uvula is midline. Face with no lymph node enlargement. EYES: Clear bilaterally, pupils equal, round and reactive to light. CARDIOVASCULAR: Normal rate, regular rhythm. Heart sounds S1, S2. No murmurs, rubs or gallops. PMI non-displaced. RESPIRATORY: Breath sounds clear and equal bilaterally. GASTROINTESTINAL: Abdominal Exam: soft, nondistended, no hepatomegaly, no organomegaly and no splenomegaly Masses: no mass on examination Bowel Sounds Detail: Bowel Sounds: normal Abdominal Tenderness: LEFT LOWER QUADRANT, RIGHT LOWER QUADRANT, PERIUMBILICAL, UMBILICAL and SUPRAPUBIC Abdominal Guarding: no guarding Rebound: no rebound tenderness MUSCULOSKELETAL: Spine appears normal, range of motion is not limited, no muscle or joint tenderness. NEUROLOGICAL: Alert and oriented, no focal deficits, no motor or sensory deficits. SKIN: Skin normal color for race, warm, dry and intact. No evidence of trauma. PSYCHIATRIC: Alert and oriented to person, place, time/situation. normal mood and affect. No apparent risk to self or others. HEME/LYMPH: Cervical Adenopathy: negative Splenomegaly: negative CRITICAL CARE RESULTS: Recent Lab Results: I have reviewed these laboratory results: Hepatic Function Panel 08-Jun-2021 07:40:00 ResultValue Aspartate Transaminase, Serum 21 ALB 4.3 T Bili 0.4 Bilirubin, Serum Direct - Conjugated 0.1 ALKP 75 Alanine Aminotransferase, Serum 26 T Pro 7.6 Complete Blood Count + Differentia (more content not included)... Normal [facility] Triage - EDon 06-08-2021 Triage - ED Quick Triage: Are You no Have You Given In The Last 6 Weeksno Are You Currently Breastfeedingno Chart Review: PRIMARY ASSESSMENT NICKI HOOVERBIENVENIDO's primary assessment is Within Defined Limits. The airway is open and patent. Breathing spontaneous and unlabored with clear breath sounds bilaterally. Circulation is normal with good peripheral pulses. Skin is warm and dry and color is normal for race. ARRIVAL INFORMATION Means of Arrival: Ambulatory Mode of Arrival: private vehicle Arrival From: home Accompanied By: self Language: Spoken Language Preferred: [place] Reading Language Preferred: [place] CHIEF COMPLAINT NICKI OVIEDO is a Female patient with a chief complaint of abdominal pain ( lower abdominal pain with nausea, vomiting, diarrhea ). Onset of the Complaint: 07-Jun-2021 16:00 Triage Date/Time: 08-Jun-2021 04:11 DIAN: 3V Pain Rating (0-10): 9 = Severe (Took a Percocet 12 hours ago, but now throwing up) Pain location: lower abd Vital Signs: Temperature: 97.1F ( 36.2C) taken temporal Blood Pressure: 176/100 Mean: Heart Rate: 91 Respiratory Rate: 18 Pulse Oximetry: 97% on room air, no respiratory support. Height: 5 feet 7.00 inches. 170.1 CM Weight: 299.8 pounds. Calculated 136.0 kg. 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 Symptoms Are Negative For: anorexia, constipation, diaphoresis, distention, fever and rectal blood. Risk Screens Suicide Risk Screen In the Past Month: Have you wished you were or wished you could go to sleep and not wake up no In the Past Month: Have you had any actual thoughts of killing yourself no In Your Lifetime: Have you ever done anything, started to do anything, or prepared to do anything to end your life no Interventions: Timmons Fall Interventions: LOW INTERVENTIONS: *patient oriented to surroundings and call system, * patient/family falls education completed and documented, *patients fall status communicated during bedside handoff, *whiteboard updated, *mode of toileting discussed with patient, *bed in low position with brakes locked, *call light in reach, * non-skid footwear PAST MEDICAL HISTORY Immunization History: Last Known Tetanus Immunization: Less than 5 years TRAVEL HISTORY Travel History Coronavirus Screening: positive for symptoms Travel Exposure History: NO travel to International locations in the past 30 days ([place], [place]) PAIN Pain Scale Used: ROCKY Pain Assessment: (lower abd) and sharp Pain Rating (0-10): 9 = Severe (Took a Percocet 12 hours ago, but now throwing up) Past Medical History: Past Medical History Reviewedyes Electronic Signatures: Cindy Zapien (ADRIANNA) (Signed 08-Jun-2021 04:15) Entered: Risk Screens, Pain, Arrival, ABCD, Immunizations, Travel History, Chart Review, Scores, Past Medical History Authored: Quick Triage, Risk Screens, Pain, Arrival, ABCD, Immunizations, Travel History, Chart Review, Scores, Past Medical History Last Updated: 08-Jun-2021 04:15 by Cindy Zapien (ADRIANNA) Normal [facility] URINALYSISon 06-08-2021 Appearance (U) HAZY Normal CLEAR [facility] Comment on above: Performed By: #### T RPHS #### [address] [id number] Bilirubin Ql (U) Negative Normal NEGATIVE [facility] Comment on above: Performed By: #### T RPHS #### [address] [id number] Color (U) YELLOW Normal STRAW,YELLOW [facility] Comment on above: Performed By: #### T RPHS #### [address] [id number] Glucose Ql (U) Negative Normal NEGATIVE [facility] Comment on above: Performed By: #### T RPHS #### [address] [id number] Hemoglobin Ql (U) Negative Normal NEGATIVE [facility] Comment on above: Performed By: #### T RPHS #### [address] [id number] Ketones Ql (U) Negative Normal NEGATIVE [facility] Comment on above: Performed By: #### T RPHS #### [address] [id number] Leukocyte esterase Test strip Ql (U) Negative Normal NEGATIVE [facility] Comment on above: Performed By: #### T RP #### [address] [id number] Nitrite Ql (U) Negative Normal NEGATIVE [facility] Comment on above: Performed By: #### T RP #### [address] [id number] pH (U) 5.0 [pH] Normal 5.0 - 8.0 [facility] Comment on above: Performed By: #### T RP #### [address] [id number] Protein Ql (U) Negative Normal NEGATIVE [facility] Comment on above: Performed By: #### T RP #### [address] [id number] Specific gravity (U) [Rel density] 1.020 Normal 1.005 - 1.035 [facility] Comment on above: Performed By: #### T RP #### [address] [id number] Urobilinogen (U) [Mass/Vol] mg/dL Normal 0.0 - 1.9 [facility] Comment on above: Performed By: #### T RP #### [address] [id number] BASIC METABOLIC PANELon 05-18 Anion gap [Moles/Vol] 16 mmol/L Normal 10 - 20 [facility] Comment on above: Performed By: #### B MP #### [address] [id number] Calcium [Mass/Vol] 9.1 mg/dL Normal 8.6 - 10.3 [facility] Comment on above: Performed By: #### B MP #### [address] [id number] Chloride [Moles/Vol] 102 mmol/L Normal 98 - 107 [facility] Comment on above: Performed By: #### B MP #### [address] [id number] Creatinine [Mass/Vol] 0.79 mg/dL Normal 0.50 - 1.05 [facility] Comment on above: Performed By: #### B MP #### [address] [id number] GFR- AM. >60 Normal >60 [facility] Comment on above: Result Comment: CALC ULATIONS OF ESTIMATED GFR ARE PERFORMED USING THE MDRD STUDY EQUATION FOR THE IDMS-TRACEABLE CREATININE METHODS. CLIN CHEM 2007;53:766-72 Performed By: #### B MP #### [address] [id number] GFR-NON AM. >60 Normal >60 [facility] Comment on above: Performed By: #### B MP #### [address] [id number] Glucose [Mass/Vol] 171 mg/dL High 74 - 99 [facility] Comment on above: Performed By: #### B MP #### [address] [id number] HCO3 (Bld) [Moles/Vol] 21 mmol/L Normal 21 - 32 [facility] Comment on above: Performed By: #### B MP #### [address] [id number] Potassium [Moles/Vol] 4.5 mmol/L Normal 3.5 - 5.3 [facility] Comment on above: Result Comment: MILD HEMOLYSIS DETECTED. The result may be falsely elevated due to hemolysis or other interferents. Clinical correlation is recommended. Repeat testing may be considered. Performed By: #### B MP #### [address] [id number] Sodium [Moles/Vol] 134 mmol/L Low 136 - 145 [facility] Comment on above: Performed By: #### B MP #### [address] [id number] Urea nitrogen [Mass/Vol] 10 mg/dL Normal 6 - 23 [facility] Comment on above: Performed By: #### B MP #### [address] [id number] BLOOD CULTURE, BACTERIALon 1 07-31-2020 BLOOD CULTURE, BACTERIAL PATIENT: NICKI OVIEDO LOCATION: [facility]#: [id number] : 79 AGE: SEX: F ORDERED BY: MARTY NEVES SOURCE: Blood COLLECTED: 05/30/21 08:35 ANTIBIOTICS AT JULI.: RECEIVED : 05/30/21 13:50 SITE: R E S U L T S BLOOD CULTURE, BACTERIAL FINAL 06/04/21 15:42 No Growth at 1 days No Growth at 2 days No Growth at 3 days No Growth at 4 days NO GROWTH - FINAL REPORT Normal [facility] Comment on above: Performed By: #### B [facility] #### [facility] [address] [place] [address] BLOOD CULTURE, BACTERIAL PATIENT: NICKI OVIEDO LOCATION: [facility]#: [id number] : 79 AGE: SEX: F ORDERED BY: MARTY NEVES SOURCE: Blood COLLECTED: 05/30/21 08:35 ANTIBIOTICS AT JULI.: RECEIVED : 05/30/21 13:52 SITE: R E S U L T S BLOOD CULTURE, BACTERIAL FINAL 06/04/21 15:42 No Growth at 1 days No Growth at 2 days No Growth at 3 days No Growth at 4 days NO GROWTH - FINAL REPORT Normal [facility] Comment on above: Performed By: #### T [facility] #### [address] [id number] CBC AND DIFFERENTIALon 05-30 % AUTOMATED IMMATURE GRAN 0.4 % Normal 0.0 - 0.9 [facility] Comment on above: Order Comment: Previ ous sample clotted Result Comment: Renita ture Granulocyte Count (IG) includes promyelocytes, myelocytes and metamyelocytes but does not include bands. Percent differential counts (%) should be interpreted in the context of the absolute cell counts (cells/L). Performed By: #### L IPAS #### [address] [id number] Basophils (Bld) [#/Vol] 0.04 10*3/uL Normal 0.00 - 0.1 0 [facility] Comment on above: Order Comment: Previ ous sample clotted Performed By: #### L IPAS #### [address] [id number] Basophils/100 WBC (Bld) 0.8 % Normal 0.0 - 2.0 [facility] Comment on above: Order Comment: Previ ous sample clotted Performed By: #### L IPAS #### [address] [id number] Eosinophils (Bld) [#/Vol] 0.07 10*3/uL Normal 0.00 - 0.70 [facility] Comment on above: Order Comment: Previ ous sample clotted Performed By: #### L IPAS #### [address] [id number] Eosinophils/100 WBC (Bld) 1.4 % Normal 0.0 - 6.0 [facility] Comment on above: Order Comment: Previ ous sample clotted Performed By: #### L IPAS #### [address] [id number] Erythrocyte distribution width (RBC) [Ratio] 12.4 % Normal 11.5 - 14.5 [facility] Comment on above: Order Comment: Previ ous sample clotted Performed By: #### L IPAS #### [address] [id number] Hematocrit (Bld) [Volume fraction] 37.7 % Normal 36.0 - 46.0 [facility] Comment on above: Order Comment: Previ ous sample clotted Performed By: #### L IPAS #### [address] [id number] Hemoglobin (Bld) [Mass/Vol] 12.2 g/dL Normal 12.0 - 16.0 [facility] Comment on above: Order Comment: Previ ous sample clotted Performed By: #### L IPAS #### [address] [id number] Lymphocytes (Bld) [#/Vol] 1.54 10*3/uL Normal 1.20 - 4.80 [facility] Comment on above: Order Comment: Previ ous sample clotted Performed By: #### L IPAS #### [address] [id number] Lymphocytes/100 WBC (Bld) 30.2 % Normal 13.0 - 44.0 [facility] Comment on above: Order Comment: Previ ous sample clotted Performed By: #### L IPAS #### [address] [id number] MCHC (RBC) [Mass/Vol] 32.4 g/dL Normal 32.0 - 36.0 [facility] Comment on above: Order Comment: Previ ous sample clotted Performed By: #### L IPAS #### [address] [id number] MCV (RBC) [Entitic vol] 89 fL Normal 80 - 100 U [facility] Comment on above: Order Comment: Previ ous sample clotted Performed By: #### L IPAS #### [address] [id number] Monocytes (Bld) [#/Vol] 0.54 10*3/uL Normal 0.10 - 1.0 0 [facility] Comment on above: Order Comment: Previ ous sample clotted Performed By: #### L IPAS #### [address] [id number] Monocytes/100 WBC (Bld) 10.6 % Normal 2.0 - 10.0 U [facility] Comment on above: Order Comment: Previ ous sample clotted Performed By: #### L IPAS #### [address] [id number] Neutrophils (Bld) [#/Vol] 2.89 10*3/uL Normal 1.20 - 7.70 [facility] Comment on above: Order Comment: Previ ous sample clotted Performed By: #### L IPAS #### [address] [id number] Neutrophils/100 WBC (Bld) 56.6 % Normal 40.0 - 80.0 [facility] Comment on above: Order Comment: Previ ous sample clotted Performed By: #### L IPAS #### [address] [id number] Platelets (Bld) [#/Vol] 322 10*3/uL Normal 150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 tenderness, no discharge Respiratory: normal respiratory effort and excursion; no rales, rhonchi, or wheezes; equal air entry Cardiovascular: regular rate and rhythm; no murmurs, rubs or gallops; symmetric pulses; no edema; normal capillary refill; distal pulses present Neurological: normal speech; CN II-XII grossly intact; DTRs normal, no pathologic reflexes; normal motor and sensory function; no nystagmus; no pronator drift; normal finger to nose and heel to aponte tests GI: Point tenderness and erythematous skin changes appreciated at the right lower aspect of the abdomen with induration in a horizontal bandlike fashion. No fluctuance. No palpable, pulsatile mass; no organomegaly; no hernia; normal bowel sounds; (-) [place] sign; (-) McBurneys sign; (-) CVA tenderness; (-) Erie sign; (-) Fallon-Abdullahi sign : (-) Suprapubic tenderness. No discharge appreciated. Lymphatic: no adenopathy of neck, axillae, groin Musculoskeletal: normal gait and station; normal digits and nails; no gross tendon or ligament injury; normal to palpation; normal strength/tone; neurovascular status intact; (-) Homans sig (more content not included)... Normal [facility] UA MICROSCOPICon 05-30-2021 BACTERIA 1+ /HPF Abnormal [facility] Comment on above: Performed By: #### L IPAS #### [facility] [address] [place], [place] [id number] Mucus Ql (Urine sed) 1+ /LPF Normal [facility] Comment on above: Performed By: #### L IPAS #### [address] [id number] RBC 1 /HPF Normal 0-5 [facility] Comment on above: Performed By: #### L IPAS #### [address] [id number] SQUAMOUS EPITH. CELLS 1 /HPF Normal [facility] Comment on above: Performed By: #### L IPAS #### [address] [id number] WBC 3 /HPF Normal 0-5 [facility] Comment on above: Performed By: #### L IPAS #### [address] [id number] URINALYSIS WITH CULTURE IF I NDICATEDon 05-30-2021 Appearance (U) CLEAR Normal CLEAR [facility] Comment on above: Performed By: #### L IPAS #### [address] [id number] Bilirubin Ql (U) Negative Normal NEGATIVE [facility] Comment on above: Performed By: #### L IPAS #### [address] [id number] Color (U) YELLOW Normal STRAW,YELLOW [facility] Comment on above: Performed By: #### L IPAS #### [address] [id number] Glucose Ql (U) Negative Normal NEGATIVE [facility] Comment on above: Performed By: #### L IPAS #### [address] [id number] Hemoglobin Ql (U) Negative Normal NEGATIVE [facility] Comment on above: Performed By: #### L IPAS #### [address] [id number] Ketones Ql (U) Negative Normal NEGATIVE [facility] Comment on above: Performed By: #### L IPAS #### [address] [id number] Leukocyte esterase Test strip Ql (U) TRACE Abnormal NEGATIVE [facility] Comment on above: Performed By: #### L IPAS #### [address] [id number] Nitrite Ql (U) Negative Normal NEGATIVE [facility] Comment on above: Performed By: #### L IPAS #### [address] [id number] pH (U) 5.0 [pH] Normal 5.0 - 8.0 [facility] Comment on above: Performed By: #### L IPAS #### [address] [id number] Protein Ql (U) Negative Normal NEGATIVE [facility] Comment on above: Performed By: #### L IPAS #### [address] [id number] Specific gravity (U) [Rel density] 1.019 Normal 1.005 - 1.035 [facility] Comment on above: Performed By: #### L IPAS #### [address] [id number] Urobilinogen (U) [Mass/Vol] mg/dL Normal 0.0 - 1.9 [facility] Comment on above: Performed By: #### L IPAS #### [address] [id number] URINE CULTURE,BACTERIALon URINE CULTURE,BACTERIAL PATIENT: NICKI OVIEDO LOCATION: [facility] IMAN#: [id number] : 79 AGE: SEX: F ORDERED BY: MARTY NEVES SOURCE: URINE COLLECTED: 05/30/21 11:45 ANTIBIOTICS AT JULI.: RECEIVED : 05/30/21 18:21 SITE: R E S U L T S URINE CULTURE,BACTERIAL FINAL 05/31/21 11:04 MULTIPLE ORGANISMS PRESENT, PROBABLE CONTAMINATION PLEASE REPEAT CULTURE. Normal [facility] Comment on above: Performed By: #### T RPHS #### [address] [phone] Coding Summaryon 04-19-2021 Coding Summary HTMLBase 64 OyxyvzfpQSp4dRh+PGhlY WQ+IR2OIXKeV53cfSEkgS 8QJ8nBGX9ZQBJOUQUBPH3 FAA7urVE4EZshM6IwzaZq WnejmQSfLB32TDq3KQZ6j VqmVLxtgF9fvQRoV1s9Mh ZxQE11zW11SPplEGOgErS 3LjZpbjsgbWFy W5tnUbIyiFXkXmz+PHRhY mxlIHdpZHRoPScxMDAlJy RgjTtqQB8tGb8zCOHhOGJ vbGxhcHNlOiBj j2utXBOgOVwcFO4nuToyK 8KsfWO8LRPbf4h5Fn80nU I+RJQiBEP8vHxjXOuhi51 0UfTqq1ihSBS3 eSNoTTtjKTL5K92kb2Z4N XCeSXKsRBX4tUM6dU7mpS mbatrsZ5WfaNJyBhM0BBA 2fZYbkV1jbNob yvicgH3bSgd+B80JPS2YF QVXTA0BIgw0O8CvOlegfL I+GN07PBOiVY08kHGkrZP bw7wwoZl8OwGf HOSbEQG8yKkfFRmxp6WqC KUfH44ztSRyd0L4CCJkcW evsULePvGslQA1lX5pARk vcexwa3ihthsu Ivatm8wjmu39gN48F08yB VtsSYUgELW8BNAyEFVyrO ytof5jzN5oOo1+VAzqq9p xd8qloHk7SjMi ZQApmbWfoAcwBCT2l1AlQ f02T9YqpRhtb6XjWed9le 12yGIls8V3bBK2TIvoZYY usT3nFSqgXmN9 MJFjPwAiwR84jIMbWXmjR c4hyJhjnDbzCB8zMYHazj bnJUPrtS2gWUZlzVNhcKd uFF5eEPJbpvns u682HsQpJXL0OJBafKKhC 5RutF8mQxLmWKKeXBIoB8 YbhTYnZIktT115LIgtNaO 1QMJqzxQpE1Ez CYXxpRrzJjD4h5K6Bx2Rr 6NztaneCBT6MHjfJDXvSb VmIaNuGmC2A0PmHhg9VGO mqKliDT1xH6Mc AZKibbkwkqykkFA8AUEkU JXohV24iZCtVOboVm9ik2 E5p101ZNYwXPDizQ87Cu2 udDogMTBwdCBU xA2blnsia5eyobmyJkMjK DFvVRn4HOm1TFQvoQexMl OwBVG8IwS0JEO4jZXvpI3 rfLxlonrjqQ6p Oyc+Y26oqR9kRCT9AVV4h hfgVMIwxcAhOC48FN91Y6 RyPjwvdGFibGU+PGRpdiB vsPmcOV2hYnJf s1oge9ZqRAmsT6BlGZMuX MguSct3QEPuOWL5iJU3fL 3bFPXnLGhqz1H7uIS5X0Q elgIlnr5pt2qy NEUwSCitQ22bhFEey6M0R IZekVU6LEFqnGqkUwLkeZ 93Oyc+LCXleBwcd9FuIdo cj0joe0chsXy5 LxYuEBEuhaNceSyoBKM5g 2BeWz61Z35mWAfiDVPeTY QcTIGqUUIkgMtepa0wpE8 wIi8+PGNvbCB3 nBM7bE9kISEkHcO2UHtoM 187MdGrbEBrFvmlm1vyz9 ztuBw8JbDaSBQfbcWapEx pAZK0y5MuVe26 V77sPLnuUYPiFUIcWELzU SSzxKfumk4ieS0nTu1+PC 9lx6lsnc59lJ23xMQ+PHR dCBW3lGrkMQkn HZHlrY2vHKubRoS1LLDmQ iPunK28sVGhJQocHf1ukL mtpNsbKG0mNTIofedcu61 8ZqGmx7frCZCo iVBkTRydTOF5J48ce3A6X UEtPVDbCJS7nOR8jB1ccQ lnbjogbGVmdDsgdmVydGl tRWumNBjwU236 IHRvcDsnPlBhdGllbnQgT sDkXAl4F6PeWah8RRYohU pxDK6uzRDnQLhcCg8ylLj nyBxeWY0yXSDj sacsg617AkSjn6pzRDDlm OVyIJwcUUC6M38un7O6KU QcQMZcFAK9pPG5gG6qaZk nbjogbGVmdDsg suFwaLnqEDamHGvzY367C HRvcDsnPkJpcnRoIERhdG I1ON92XO23fGTrz2S9bXY 8K5QcPTPvkski xawtfAV0EGHfAQOkfQ01U a3gxTihDb5qOMIcSQO3XL HxrHLhR4ZfmF9oOhSuUAI oTDWkP2AyqZNd RCfeA037ITiuCdI9CEOhx wQaP8HzWYGwhJxxWqK9p8 H5Mu6RG2U8MN29OZ57sZX dm6Q8dLI0B6Ge PGKwydmqeswjjJO6PCXrJ MSojP39Ob3oiBupAp7kCZ SvMGJ6UCGlbUYtO2VboC4 yOiAjMDAwMDAw G9YhgKVsHGjoP483ERmkF gS2TAZgutGjB7LgNGXpkL hrGaN7h3A7Pm5VLKy1ES4 8HW42jFJun3X4 lLE0P8RnJCSrkkiaxhxac NV1PLDdPZHcsW36Og6jpR ebJw1bWTQxMGC9JFJfiHH gO1GonH7jRrKn ZONmOVHaK5VbnOUuHEsgM 746SSpjQrC9LCSkwrUwN5 OeRULrwFzaNiL9e7I1Ng0 JCGDnEW95LOJ8 cGM8DA71GI41C0LtAghdz GFibGU+PHRhYmxlIHdpZH RoPScxMDAlJyBzdHlsZT0 oLy4iDLNqUPKo eFokxEPwWrYpo1frDQXlQ YqxIX5xoVheH0OhpPD6WX Vob8v5Ap91W28xN1GpwPJ +IPDewDA4yGQ5 vU9pGvRbNaT3HSkqR779M xTflFQbAfirm1thy7xwlT y0QtK4PUVoemVfqTvmKYP 8v8VsKs12E10f IHdpZHRoPSIxNSUiIHZhb Xqrnc7lbH7mJq0+PGNvbC V4tQH9fD8bBjKhQaD0BKj lM043FhNqcORo Gzded0esf3ebwQs5IgBlK KJtgqFtqSmqRKQ4x0HoVo 30K0IliXpbx2YuHmx0gk8 0mCIdb8V3eWR3 P5SdBIKhqqnerRPgcBrcM W8vAQTntmonZKBrzD6uGK SfP4d3KdToSsE7XRtqX2V qapB6RVCkeDSs QMhmEYF2X58vy6F2WVTmH MNpMTB8sTZ6qY4joBjloa ogbGVmdDsgdmVydGljYWw jBKskO979JUUz bYwaKORhfC7sZKBbcYGut BqhXC7zKRYpktmaEiwKEa MXNeqnMD6OYQELSXdWHlA USDwvdGQ+PHRk TGJ3sEpwLUncRXBssE8kO GPtO9n5VeHfLsW5RAdyA7 KvROEwftckHs64vN8cWsH pZoX7BRtsF0Ql gpH4XLEshKBxOPdqTSG4R 46bo5P6AIFnSVRxSTI5dZ M7aK2ljIrymgjxwCCyoTc gdmVydGljYWwt PNgaN731OCBtjYktAnBsC kHiUgT6Blz9I6GoGio3OE BraRduGK4ozIQwDVfyMx0 xzRxulYxgMB3u TTWphtdkFGLevJ0lIOVic UMnaXhrPC5tNQWgsbnax4 03PuYsMPD3DFSdtNWtD7D feC5iBjDhRSKx ZCKyP4WmxRSeWMqnO576M AorWnE6JYTgmxNfW9UpAY CkiNzfSyE8s5L7Wy81UpU ZZWFyczwvdGQ+ VKHfPKG9iBedJXlaJOYlb I2bMISjY3d1BpUeXsU3QA bfG1FlZXHtbhrcJa56yE1 nThHcAbS8RKww D6NcceV1NDGyoBYzZJpcJ JN0D28qm5X1ISRuHUDsKZ S0zZK7uA4ztPszxnpkoCN mdDsgdmVydGlj ERkqAXpeS064BUAxrZmzG kZFTUFMRTwvdGQ+PHRkIH G3pWpeVQyzIMVklP4xMNK kM4t0MxTvYtT7 JHrvR6WtEYCcmdstSl03h O3rLqTxQwV7SJbuZ3Biec L9JMAcgJTrACkwLBL7V59 lt7O5WABiQIWn MEF1wQG1uP4irWkazhcmu GVmdDsgdmVydGljYWwtYW alY566GGRayRguNn9GVS4 5QH59I7MsUjkz dGFibGU+PHRhYmxlIHdpZ HRoPScxMDAlJyBzdHlsZT 9wVd6rESUsASSaiLbniVS bKkSrt9drCDJn MOjgTM0nwBgeY6VrfGQ0H ZCqf0u6Wb71L47eH6MelB A+VPSyjAV8qXC6gF6aPqG wHeQ1GOzpN766 TmNwdYCjMqkdd1biw7oun Bv6UgMsGSVuooUhoDcvWJ D2t2LiKl43Q37aOXhuFEJ oPSIyMCUiIHZh jQtokn0pdY3gVm1+PGNvb KC8yMK1hQ1dRxCkHfV2QH ubV518KxVnuZHkRjmrO67 uG9SzwRT+PHRy Urk3NKFpgXqbOA3fmSLvM BsgZn4iFDN5NlBcWuPjTR bxG4KlODLkkrqaanbtwUV 8GNEdRLElxO02 Ck6duUdpEf8oGLGvTSF4I EVpeFMcW5TsqM0qJfJyTR FoFFYuZ1NapBCeKDmrK28 9MMcpUgF4EDAj wwRfN4QaQJPuvBcaWmL7q 0V4Fy5AsSunbTBxZS7xAk MhNOh7Y1XhEpr7JVNpbBa vGH1pkTTxGUps Ln3zdGyrqBdwJJ9aQZYau flng890UoIjb6ozWSRkaQ TsXWejDKR2H61yg9U5LHK lHQUzAHN2iDR7 aN6zxClefljayMNtxBeye kZscSziLOncYSvkJ485TO KnuNqqMdZJIgo4I1PoNez 8QXYdzZcuCE9y yCJeLXvzXj1smWztxVrlO Z0vSNZgogzem861AiDjh9 isKICwaLWlRZchHMO6K40 ln3P0HEMlMPCd ZNM7tWU8xQ0djGadpzqek GVmdDsgdmVydGljYWwtYW frT296QCFlkUnoRt9JBud 6U9UtEvk7GNFn xZkbSM0qhMEiQSykLv7zt AuscAotEW9wORNlyyyqe8 75RsTpu0oaKQCthIErPXq iZQT9Z57dh8U3 NMVzNIKuWGR2qSU9jX1fv GlnbjogbGVmdDsgdmVydG mkWRcpHNiuU342BRVyyGc nPlBheWVyOjwv dGQ+YZ74qm88I5XwPpzwJ ww6TRYfNKB8kGV3dD6bVI UoKGcvk3O4wPY2N9CemsF cnf1tf1wqVEXk ZTo (more content not included)... [facility] Coding Summary HTMLBase 64 ZipfheppEIx6fFq+PGhlY WQ+DS0HFHDkN62mcAMznN 3ZK5hJIE2YAHWUICPJIV8 ORC9lqKK1NXarR3YoegDr GlegsAMvOM23DYp6UCY9e JbsETzmqQ2reORiD1p5Kb PwFR78cX55ZLitYEOrHtU 3LjZpbjsgbWFy X1fmStCgoUHvKop+PHRhY mxlIHdpZHRoPScxMDAlJy TrhVlaOU2cMy9eAVQoXZP vbGxhcHNlOiBj n2ofLENxGNonOA7ncVwiH 8AhqYY4TLLcv6w7Iz31rO I+GNWdIFQ4sDjlQVwhh93 6SqLct4uoKQT3 zIOuMQevYOQ7T72nz6S6M QLsVEHnJGM2aFB4cZ1sbF rsjbdeZ2GsrFBeCrP2UHW 3mNWmiV6raQth zigfvQ9lBpc+D22BIV5BP MZUYP0XMag5T8GzBmvrsI I+TR96XSBpGJ35xKLptZL eg4ueoXt5FeCc PZNrDBO7qCbnIFkhf9AzZ VGeW76rbORhs9A8DKPrjC pagKVqHrTohLB7xM3mGZg mrapzc4baagpj Hbvpe1wnbj54kT71W91vI CaeKNUjZID7BUByARAsoJ wawc7miG3tFd0+VHpqh1c xa1zvkXj6HtWt GZSpylZltWjvWZH9g1BiX e22Y2PgkVbkr5QkBar7nn 50xVRtt3U7uOD9CIkiYBN xaF1uOQwhGaM5 VVChWzVijN38yNVaZXwoS a9iuWglfDgfRN7iHUQjru zjTGUlnW1kYZDdsISntGe rSR8hYEWzvfow i790BpLeFVQ4KGQylPUoU 9CycX9oAuHyWASqHJKqI3 CowXLlYBkgK312SUddRwV 2PTFoxiIkW1Kw NIQxgWsnNuK6y2J4Vx5Pv 4XhyqzeKIW3VXyfESYaWg ZmBgWcTgI1T1ThBbo8EKL rgYuhTP7qP5Sk TATxtrqfbdxzmUK8HXZvJ EJhlR88nJFjTMfdAj6vw8 K6o133HTDxENBuxR26Op0 udDogMTBwdCBU mP0pqldjx7dboctvMlIaV ZAnFXj6VHm7ETVxxFqkBq VhEKA4KtK3SZN4eMFgiY9 pzJlatykbaJ4j Oyc+Q43pkD6xBBD7ECQ9k awsECHqqzMrOV09IQ27V8 RyPjwvdGFibGU+PGRpdiB cbBrjOE9gLgOk u6emx5EeEHqnY8EkLRCmA PfjAdw0PBDnBUH1vXP0rL 6dVAMkOIccv5F6yWI6G2S vmkTrlt4lx0ng VCNdAHpcB32ytDTpu2H4S EWjnDA2WDFsqOdlNuAokH 93Oyc+RVMsaLjfm7SnNlw ca6ipj9iddYk1 KdTuIESpmuZphQggIJQ3r 4KaIa80J68rWDuvFEWvSA LeAYXmGGIxnWlebu2deM1 wIi8+PGNvbCB3 hRE4oD4rBGIlOiE6CVizH 057XnVidECgTnfhv6iye2 hmjGg0MtLzPZSscuFxoHt wXTJ6x4BpNt03 J48nNKkeGXBvQCQwNHIsI JOscTynms9zhI0iXk6+PC 8sb4ocwq48iL96fOH+PHR gSZX9wKxdDChv ULVkiS3bNCmaMgF9CANaP zEhiD05fDUcAPtsFm0fuL wciFwsFM6dVHSglzxkk25 1NfYmc1tcPYAk aNYiMYozSQC6D61yc0G0Z YGxMWXwNRR3bZA1lF8ngT lnbjogbGVmdDsgdmVydGl zVMooAYffQ031 IHRvcDsnPlBhdGllbnQgT fNiFLz0P8NbMjo7VHBugW jcDV8hsPMcQDiwOb5brUn ojXqyDL7hJDNl fylct100WdYlh0tuCJCjz FRmJEwxIUX8U22er1W7SN IbEDIjHZH3hLB4pE9xpVq nbjogbGVmdDsg txHvrHmaENsoYTwsR788R HRvcDsnPkJpcnRoIERhdG F4RS17UR48oETbn0R8nHW 5S4YiXWNjxynu xudsuJU8NVHlQLEgmF32K z9mmKwoTj3yHEBtUJP5QE BbgTXuV9UagE2yJpRwQQG jYORaX7TlvICx OJjcW336RMqcUqK2DQRxa fChK4WfISBotZriSwB9a8 F8Ik1JB6Q2KS70GV44iEJ hh3B2qHR9I9Jc PCIehqpvbhosdKC0VTHmD XMccP77Em6qfSsqOv5bUD BiEDG4EJVglOHkQ9ZneX6 yOiAjMDAwMDAw U1LarBRgGCjeB028IRdlA dR0GFRqynFzA1VcMGHepX tgQeO0d2T4Ib3VXCr9NJ9 1XA35eMWwj1H1 sMP7U5AbICHkcvjmcanbq IH9WICaKEBddX08Cy3rnS tqEk5mNNEbLNM2MRHhhHS wP6PwyK0zZyGl NMEaICZoM3RptDPdQNfmW 176XSciTuX2NDAlxcKsV6 LzDWAbiXecWoP5j2K8Lh3 MLNVpAN38XOK7 aMR6CW33NB49W7EsIbmor GFibGU+PHRhYmxlIHdpZH RoPScxMDAlJyBzdHlsZT0 tIg2zWEJpFTUy fLpttHGzAzOpy9olEPWlH YjaAI9osHmaP8JsuIN7VQ Rxh1w5Bo05J67gW4YlbRR +QYMrjGG8gRZ6 wH4nGdBqAqQ9EQaqF043Y lVbsFZtPzdcr4gjk8adtB o1FuG4SJXvvtJcrWpsTSM 3s9AnYy07P75f IHdpZHRoPSIxNSUiIHZhb Acvgg5rkK2iLg5+PGNvbC D5gOL6zT7iPnRmFbQ0AYq vG710TzLpuNTv Absmy3keb4sbqAf2YgBvQ HCelmTboWakIAR1e0NbTf 24K6AkbSkht0FfKpa5zl3 5pJPjx1D9nLF1 U5QtLMTpeyajkKGioIemM U5nDIEdknbvARTheN4pYR SbU7a1YzYzBlD3FVvyE0Z fefU2SPAzfTEr KJpeEZK8N55po4B7PAMzV ZDrERR1vYA7bY1jbAbgwe ogbGVmdDsgdmVydGljYWw qNIvlD790CWFn kMdhTRVvpV4oJVWjrIWyf SyzUD4qKXMrmhzvSqbPJs JHZmwiLU2BYCGLYSwTIbT USDwvdGQ+PHRk IGB0wCfnBScjIZZpiY6gK HVgE2t9JwKzCaE9TFxpB4 SvHGPhcccrNr93wF9wFlT qQyJ8CQfeA3Rx tnM5ZEOgfOBaNZnrBEQ7N 35yz2M8RWOuSEHsWZM7dO K4hF6yxIaxtemtrOMflKv gdmVydGljYWwt UXhpH851PYOpzUcxUeIsI qZiRfK4Igp4Z1MmOxx0DC XdgYuwCW7rkNSsIXxfEi1 toPwobHioRG5v PPZuvtggMKSyuD2bWDUio UNwoCofMJ4gRDHwzylab8 76UaMsZMB1DLSdsFMiA5I hxU1mQlGeMWJl NVZyW2QhxSYuDNtuF779G VsjVkU6EKXdnuBqC5FyGF JrtDzjVwP0q6Y9Gc67NnQ ZZWFyczwvdGQ+ KCCfBXG0uNwaKSejBXOfi Z1zGJKaN8j4AjYbPjF4PD xsE0HsWZCuvfuyJm76tF2 jHeBgIqV9TTfe L8LvreI5SGLruPInMYadT ZE3X86nd1N2YFDvRZVwUC U5zNB7gQ0stPdanlptvPE mdDsgdmVydGlj SQgeDWmhH132JGFdcVsnH kZFTUFMRTwvdGQ+PHRkIH D1iRkvBHprTHOnqB3iGIJ bR5v9ThTqMaO6 LAiuR7PpZHAhoyiuBs32v S1bHvSqXzT0IDytI0Gkqd A3BUAmoPZyDPyqXKF7Q91 mo7M5TVXhZHKw AUR4iHW2dM9jeDxnzxuet GVmdDsgdmVydGljYWwtYW luC335UOMxrGnfHyGoWBA xPC7hpXlhpWE+ PF80wv68O1UcTysvRff8S YXwSKY1gSV6xI2jCBUeEE bzq3L9wUL9F8IpxiXtkp1 qp8ymFHStXGuv L70dxPJxm3C9HAXogAY6R DZndZaaOvStvM70Ikz+PG YfgRcfi7CtWcjux1azo2v pwFy1VoXfKLFx siLcjTwtJPH3t3EkQx13E 29sIHdpZHRoPSIzMCUiIH CkeGddyo9xwY8eVh9+PGN moVB7rAZ2vL5j IvWmTyH4YGozY707RdTjq MUlHjyvn6hhf3beuAu0Vv SoWKPqjoUtbTonMZN8u0B cVd53E3KbrZxi o5WjKpc7jb77jDRhk4H4x GO1D1UcLUCltxmdqNMdxP wwVP0gYWSlwhrxKSPajL0 aUXSxF4l7RyWu FpS5YHgeA5ZvwvR3ALGaj TCnKFYhxMZEvH5yxqfna4 sildwoDwQpSJLiYSl9BGw 0LWFsaWduOiBs LOO9OiK0DJL1bJMbuF1lo RndkotqhF3qIaf+UGh5c2 ktkQTkOS3pxAY1QE85ZM2 7oRSzp9E0tPO9 C0CgTOVfiuywrcrucZG2W AYbFQXjgS75Ey1xaFfnUq 3cFVGlQOS1SLBtgWCoY1C gvE4sTcAvKKEn IUQgJ9LczPNbLLilC962V EhcAdO7YDZdwcZoE1BjZS TspIkiWzU6n1K6Sd6OYY5 1NK36PC97kTIi i1Y1hQZ7C2VsENWryougo oiavIA3TPVhJYKgyQ27Es 1heDuzGy6lONOeFNE4RJQ jeYMyX4FvcC0b ExUgAQCgCZXvY2EcePDeH TfmC423HIdbXjZ4HZMeor UqE1RrONTqzDtyQaY4f0U 1Pf7LIu41TY16 QI35iPGlr8K4pET4H8PtH YDbpagtaqsalBR0VMKrTQ DziH96Oi0wlIqnQd5kLEY lLJO4BOJjlKTp Y7TlkY9nLyOjWPHyQCVxO 8IgyDWcMSwvS941DCzuSs F4KNAbspRbH5LmJDCkzIg sBvY6u1T2Fr2P ERbquvo4M0CwFtalpHB+P V89XLHrHF54lWAgtHWvs6 okaUw6OyUmGQXrJKE2iIu pYRnpv9VeMPFc Y29 (more content not included)... Normal [facility] AMYLASEon 04-09-2021 AMYL <30 Critically low 31-110 [facility] Comment on above: Performed By: #### C NELA CARRILLO AMY ####[facility] [address] [place], [place] [address]UvTim Phi Harley CBC AND DIFFERENTIALon 04-09 % AUTOMATED IMMATURE GRAN 0.4 % Normal 0.0 - 0.9 [facility] Comment on above: Result Comment: Renita ture Granulocyte Count (IG) includes promyelocytes, myelocytes and metamyelocytes but does not include bands. Percent differential counts (%) should be interpreted in the context of the absolute cell counts (cells/L). Performed By: #### L ACT #### [address] [id number] Basophils (Bld) [#/Vol] 0.02 10*3/uL Normal 0.00 - 0.1 0 [facility] Comment on above: Performed By: #### L ACT #### [address] [id number] Basophils/100 WBC (Bld) 0.2 % Normal 0.0 - 2.0 [facility] Comment on above: Performed By: #### L ACT #### [address] [id number] Eosinophils (Bld) [#/Vol] 0.04 10*3/uL Normal 0.00 - 0.70 [facility] Comment on above: Performed By: #### L ACT #### [address] [id number] Eosinophils/100 WBC (Bld) 0.5 % Normal 0.0 - 6.0 [facility] Comment on above: Performed By: #### L ACT #### [address] [id number] Erythrocyte distribution width (RBC) [Ratio] 12.2 % Normal 11.5 - 14.5 [facility] Comment on above: Performed By: #### L ACT #### [address] [id number] Hematocrit (Bld) [Volume fraction] 38.7 % Normal 36.0 - 46.0 [facility] Comment on above: Performed By: #### L ACT #### [address] [id number] Hemoglobin (Bld) [Mass/Vol] 12.4 g/dL Normal 12.0 - 16.0 [facility] Comment on above: Performed By: #### L ACT #### [address] [id number] Lymphocytes (Bld) [#/Vol] 1.27 10*3/uL Normal 1.20 - 4.80 [facility] Comment on above: Performed By: #### L ACT #### [address] [id number] Lymphocytes/100 WBC (Bld) 15.9 % Normal 13.0 - 44.0 [facility] Comment on above: Performed By: #### L ACT #### [address] [id number] MCHC (RBC) [Mass/Vol] 32.0 g/dL Normal 32.0 - 36.0 [facility] Comment on above: Performed By: #### L ACT #### [address] [id number] MCV (RBC) [Entitic vol] 90 fL Normal 80 - 100 [facility] Comment on above: Performed By: #### L ACT #### [address] [id number] Monocytes (Bld) [#/Vol] 0.54 10*3/uL Normal 0.10 - 1.0 0 [facility] Comment on above: Performed By: #### L ACT #### [address] [id number] Monocytes/100 WBC (Bld) 6.7 % Normal 2.0 - 10.0 [facility] Comment on above: Performed By: #### L ACT #### [address] [id number] Neutrophils (Bld) [#/Vol] 6.11 10*3/uL Normal 1.20 - 7.70 [facility] Comment on above: Performed By: #### L ACT #### [address] [id number] Neutrophils/100 WBC (Bld) 76.3 % Normal 40.0 - 80.0 [facility] Comment on above: Performed By: #### L ACT #### [address] [id number] Platelets (Bld) [#/Vol] 276 10*3/uL Normal 150 - 450 [facility] Comment on above: Performed By: #### L ACT #### [address] [id number] RBC 4.28 x10E12/L Normal 4.00 - 5.20 [facility] Comment on above: Performed By: #### L ACT #### [address] [id number] WBC (Bld) [#/Vol] 8.0 10*3/uL Normal 4.4 - 11.3 [facility] Comment on above: Performed By: #### L ACT #### [address] [id number] CBC AUTO DIFFon 04-09-2021 BASO # 0.0 103/ul Normal 0.0-0.1 [facility] Comment on above: Performed By: #### C BC ####[facility] [address] [place] [id number]. Phi Souza Basophils/100 WBC (Bld) 0.6 % Normal 0.2-2.0 [facility] Comment on above: Performed By: #### C BC ####[facility] [id number] [place], [place] [address]Dr. Phi Souza EO # 0.1 103/ul Normal 0.0-0.7 [facility] Comment on above: Performed By: #### C BC ####[facility] [address] [place], [place] [address]Dr. Phi Souza Eosinophils/100 WBC (Bld) 1.1 % Normal 0.9-7.0 [facility] Comment on above: Performed By: #### C BC ####[facility] [address] [place], [place] [address]Dr. Phi Souza Erythrocyte distribution width (RBC) [Ratio] 12.1 % Normal 11.0-15.0 [facility] Comment on above: Performed By: #### C BC ####[facility] [address] [place], [place] [address]Dr. Phi Souza Hematocrit (Bld) [Volume fraction] 39.4 % Normal 36.0-48.0 [facility] Comment on above: Performed By: #### C BC ####[facility] [facility] [address] [place], [place] [address]Dr. Phi Souza Hemoglobin (Bld) [Mass/Vol] 13.0 g/dL Normal 12.0-16.0 [facility] Comment on above: Performed By: #### C BC ####[facility] [address] [place], [place] [address]Dr. Phi Souza IG # 0.02 10e3/ul Normal 0.00-0.03 [facility] Comment on above: Performed By: #### C BC ####[facility] [address]ome[address]uyvt[address] [place] [id number]. Phi Souza IG % 0.3 % Normal 0.0-0.5 [facility] Comment on above: Performed By: #### C BC ####[facility] Hrtdgheicb6464 [place] [id number]. Phi Souza LYMPH # 2.0 103/ul Normal 1.2-3.8 [facility] Comment on above: Performed By: #### C BC ####[facility] Alobqshybt2374 [place] [id number]. Phi Harley Lymphocytes/100 WBC (Bld) 28.3 % Normal 20.5-60.0 [facility] Comment on above: Performed By: #### C BC ####[facility] [address]airaetmy[address] [place] [address]Dr. Donanerika Souza MANUAL DIFF REQ NO Normal [facility] Comment on above: Performed By: #### C BC ####[facility] Nrepxalrna0028 [place] [id number]. Phi Souza MCH (RBC) [Entitic mass] 29.4 pg Normal 26.7-34.0 [facility] Comment on above: Performed By: #### C BC ####[facility] Wvtycbpxfe6775 [place] [id number]. Phi Souza MCHC (RBC) [Mass/Vol] 33.0 g/dL Normal 29.9-35.2 [facility] Comment on above: Performed By: #### C BC ####[facility] [address] [place], [place] [id number]. Phi Souza MCV (RBC) [Entitic vol] 89.1 fL Normal 81.0-99.0 [facility] Comment on above: Performed By: #### C BC ####[facility] Kvwpdiwudd2306 [place] [id number]. Donnaerika Harely MONO # 0.7 103/ul Normal 0.3-0.8 [facility] Comment on above: Performed By: #### C BC ####[facility] Pupkhfftby4305 [place] [id number]. Phi Souza Monocytes/100 WBC (Bld) 10.2 % Normal 1.7-12.0 [facility] Comment on above: Performed By: #### C BC ####[facility] Undxeiusdy9539 [place] [id number]. Phi Souza NEUT # 4.3 103/ul Normal 1.4-6.5 [facility] Comment on above: Performed By: #### C BC ####[facility] Mzbnnbgbcu2497 [place] [id number]. Phi Souza Neutrophils/100 WBC (Bld) 59.5 % Normal 43.0-75.0 [facility] Comment on above: Performed By: #### C BC ####[facility] Fycovhylao[address] [place] [address]Dr. Phi Souza Platelet mean volume (Bld) [Entitic vol] 9.2 fL Critically low 9.5-13.5 [facility] Comment on above: Performed By: #### C BC ####[facility] Furmuootye9169 [place] [address]Dr. Phi Souza PLT 285 103/ul Normal 150-450 [facility] Comment on above: Performed By: #### C BC ####[facility] Dgqyifhiyo4632 [place] [id number]. Phi Souza RBC 4.42 106/ul Normal 4.20-5.40 [facility] Comment on above: Performed By: #### C BC ####[facility] Ylgwlwjgxa9551 [place] [id number]. Phi Souza WBC 7.2 103/ul Normal 4.0-11.0 [facility] Comment on above: Performed By: #### C BC ####[facility] Kizcoupulr4879 [place] [address]Dr. Phi Souza COMPREHENSIVE PANELon 2020 Albumin [Mass/Vol] 3.8 g/dL Normal 3.4 - 5.0 [facility] Comment on above: Performed By: #### C MP #### [address] [id number] ALP [Catalytic activity/Vol] 62 U/L Normal 33 - 110 [facility] Comment on above: Performed By: #### C MP #### [address] [id number] ALT [Catalytic activity/Vol] 30 U/L Normal 7 - 45 [facility] Comment on above: Result Comment: Deisy ents treated with Sulfasalazine may generate falsely decreased results for ALT. Performed By: #### C MP #### [address] [id number] Anion gap [Moles/Vol] 13 mmol/L Normal 10 - 20 [facility] Comment on above: Performed By: #### C MP #### [address] [id number] AST [Catalytic activity/Vol] 19 U/L Normal 9 - 39 [facility] Comment on above: Performed By: #### C MP #### [address] [id number] Bilirubin [Mass/Vol] 0.5 mg/dL Normal 0.0 - 1.2 [facility] Comment on above: Performed By: #### C MP #### [address] [id number] Calcium [Mass/Vol] 8.7 mg/dL Normal 8.6 - 10.3 [facility] Comment on above: Performed By: #### C MP #### [address] [id number] Chloride [Moles/Vol] 100 mmol/L Normal 98 - 107 [facility] Comment on above: Performed By: #### C MP #### [address] [id number] Creatinine [Mass/Vol] 0.85 mg/dL Normal 0.50 - 1.05 [facility] Comment on above: Performed By: #### C MP #### [address] [id number] GFR- AM. >60 Normal >60 [facility] Comment on above: Result Comment: CALC ULATIONS OF ESTIMATED GFR ARE PERFORMED USING THE MDRD STUDY EQUATION FOR THE IDMS-TRACEABLE CREATININE METHODS. CLIN CHEM 2007;53:766-72 Performed By: #### C MP #### [address] [id number] GFR-NON AM. >60 Normal >60 [facility] Comment on above: Performed By: #### C MP #### [address] [id number] Glucose [Mass/Vol] 206 mg/dL High 74 - 99 [facility] Comment on above: Performed By: #### C MP #### [address] [id number] HCO3 (Bld) [Moles/Vol] 26 mmol/L Normal 21 - 32 [facility] Comment on above: Performed By: #### C MP #### [address] [id number] Potassium [Moles/Vol] 4.2 mmol/L Normal 3.5 - 5.3 [facility] Comment on above: Performed By: #### C MP #### [address] [id number] Protein [Mass/Vol] 6.7 g/dL Normal 6.4 - 8.2 [facility] Comment on above: Performed By: #### C MP #### [address] [id number] Sodium [Moles/Vol] 135 mmol/L Low 136 - 145 [facility] Comment on above: Performed By: #### C MP #### [address] [id number] Urea nitrogen [Mass/Vol] 11 mg/dL Normal 6 - 23 [facility] Comment on above: Performed By: #### C MP #### [address] [id number] CORONAVIRUS 2019 BY PCRon SARS-CoV-2 (COVID-19) RNA MIGUEL+probe Ql (Unsp spec) Not detected Normal Not Detected [facility] Comment on above: Result Comment: . This test has received FDA Emergency Use Authorization (EUA) and has been verified by [facility]. This test is only authorized for the duration of time that circumstances exist to justify the authorization of the emergency use of in vitro diagnostic tests for the detection of SARS-CoV-2 virus and/or diagnosis of COVID-19 infection under section 564(b)(1) of the Act, 21 U.S.C. 360bbb-3(b)(1), unless the authorization is terminated or revoked sooner. [facility] is certified under CLIA-88 as qualified to perform high complexity testing. Testing is performed in the [facility] laboratory located at [address] [place], [place] [address]. SARS-CoV-2/Flu/RSV Multiplex Test: Fact sheet for providers: https://www.fda.gov/media/144340/download Fact sheet for patients: https://www.fda.gov/media/298906/download Performed By: #### U AMIC #### [address] [id number] Lab Specimen Source Nasal, Nasopharyngeal Normal [facility] Comment on above: Performed By: #### U AMIC #### [address] [id number] DATE OF SYMPTOM ONSET [YYYYMMDD]? [id number] Normal [facility] Comment on above: Performed By: #### U AMIC #### [address] [id number] ABD/PELVIS WO CONon 04-09 CT ABD/PELVIS WO CON EXAM: CT ABD/PELVIS WO CON 04/09/2021 2:40 AM EDT OH001 CLINICAL STATEMENT: UNSPECIFIED ABDOMINAL PAIN COMPARISON: 01/30/2021 TECHNIQUE: Helically acquired images were obtained of the abdomen and pelvis without IV contrast. No oral contrast was administered. AEC is utilized. 2-D reconstructed images are provided. FINDINGS: Hepatomegaly and fatty infiltration of the liver. Cholecystectomy with pneumobilia. Multiple bilateral nonobstructive renal calculi measuring up to 6 mm in either kidney. Study limited by patient motion. The remaining upper abdominal solid organs are unremarkable. There is no bowel obstruction or free air. There is no ascites. There is no evidence of aortic aneurysm. There is no retroperitoneal adenopathy. There is no appendicitis. Extensive sigmoid diverticulosis without acute diverticulitis. There are no pelvic masses or loculated fluid collections. The lung bases are clear. There are no destructive bone lesions identified. IMPRESSION: Hepatomegaly and fatty infiltration of the liver. Cholecystectomy with pneumobilia. Multiple bilateral nonobstructive renal calculi measuring up to 6 mm in either kidney. No hydronephrosis and/or hydroureter. Study limited by patient motion. Extensive sigmoid diverticulosis without acute diverticulitis. FOLLOW-UP: Follow-up as clinically indicated. Electronically authenticated by: OWEN CLEMENTS Date: 2021-04-09 03:[address] [facility] Covid 19 Resultson 1 SARS-CoV-2 (COVID-19) RNA MIGUEL+probe Ql (Unsp spec) NEGATIVE COVID-19 Test Coronaviruses are common world-wide and are the cause of many common colds. SARS-COV2 is a new coronavirus that began circulating worldwide in 2019 so we are calling it COVID-19. It has been estimated that four out of five patients with COVID-19 will recover at home without the need for medical attention. Symptoms of COVID-19 may include cough, fever, shortness of breath, loss of taste or smell and other flu-like symptoms including chills, sore muscles, sore throat, and headache. Severe illness is more common in older people and people with other health problems such as high blood pressure, obesity, and immune system problems. If the test is positive, you have COVID-19. You will be contacted by the ordering physicians office and instructed to remain on home isolation, in accordance with CDC guidelines. You may also be contacted by the [facility] to see if any of your close contacts may have been exposed to the virus and need to quarantine. If the test is negative, you likely do not have COVID-19 at this time, but you still may have a different illness that can spread to other people (like Influenza, or the Flu) and could still be at risk for getting COVID-19. We recommend that you stay away from other people to limit the spread of illness until your symptoms are improving and you are fever-free for 24 hours without the use of fever lowering medications such as acetaminophen or ibuprofen. No test is 100% accurate so if you are still concerned you may have COVID-19, talk to your doctor about the need to continue to stay away from others. Medicines Unless your provider told you not to use the following: Acetaminophen (Tylenol and others) is generally safe. Anti-inflammatory medications, such as Ibuprofen (Advil or Motrin) or Naproxen (Aleve) can also be used. Botf-mwy-eeljknp cough and cold medicines can be used according to the instructions on the package. Some jgar-spm-bssviyz medicines also contain acetaminophen. Make sure you are not taking more than your recommended dose. For those not hospitalized, there is no specific treatment available for this illness. Antibiotics do not treat Coronaviruses. Follow-Up Follow up with your doctor by scheduling a virtual visit or consider follow-up at one of our urgent care fever clinics. If you are having difficulty breathing, or are very weak and having difficulty standing, this is a medical emergency. Call 911 or have someone take you to the nearest emergency room immediately. If possible, wear a facemask. Additional guidance from the CDC for patients who tested POSITIVE for COVID-19 How to isolate: Isolate yourself in a specific room at home and limit your contact with others. Use a separate bathroom from other members of the household, when possible. Leave home only to get essential medical care. Do not go to work, school or public areas. Avoid using public transportation, ride-sharing, or taxis. Restrict contact with pets and other animals. If you must care for your pet or be around animals while you are sick, wash your hands before and after your interaction and wear a facemask. Make sure that shared spaces in the home have good airflow, such as by an air conditioner or an opened window, weather permitting. Personal Hygiene Procedures: Wear a face mask when in the same room as other people or pets. If a face mask interferes with your breathing, others should wear a mask when sharing space with you. Frequent hand-washing: wash your hands with soap and water for at least 20 seconds. If soap and water are not available, use alcohol-based hand rig welder. Avoid touching your eyes, nose, and mouth with unwashed hands. Household Hygiene Procedures: Avoid sharing personal household items such as dishes, glassware, cups, eating utensils, towels or bedding with other people or pets in your home. After use, these items should be washed with soap and hot water. Disinfect all high-touch surfaces every day with antibacterial cleaning solutions such as Lysol wipes, bleach, cleansers, etc. High-touch surfaces include tabletops, doorknobs, bathroom fixtures, toilets, phones, keyboards, tablets and bedside tables. Immediately clean any surfaces that may have blood, poop or body fluids on them, using antibacterial cleaning solutions such as Lysol wipes, bleach, cleansers, etc. If clothing or bedding come into contact with blood, poop or body fluids, they should be washed immediately. Follow the directions on the laundry detergent and clothing labels but hot water is recommended when possible. Stopping home isolation precautions: If possible, consult your doctor before stopping home isolation precautions. According to the CDC, you can discontinue home isolation precautions when you have met both of these criteria: Your fever and respiratory symptoms have been gone for 24 gloria (more content not included)... Normal [facility] ED Clinical Summaryon 2020 ED Clinical Summary [facility] - Emergency Department [address] [place], [place] [id number] ED Clinical Summary PERSON INFORMATION Name: NICKI OVIEDO Age: 45 Years Sex: FEMALE : 1975 MRN: Acct#: Visit Reason: Diarrhea; Abdominal pain; ABD PAIN, VOMITING, DIARRHEA Arrival: 04/09/2021 00:04:46 Discharge: 04/09/2021 01:21:00 LOS: 000 01:17 Check In: 04/09/2021 00:04:46 Checkout:04/09/2021 01:21:00 Address: [address] [place], [place] [id number] PCP: Duke Velazquez PROVIDER INFORMATION Provider Role Assigned Unassigned Jorge A Paulino DO ED Provider 04/09/2021 00:11:01 Anders Grant 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 Nurse 04/09/2021 00:14:23 VITALS INFORMATION Vital Sign Triage Latest Temperature Tympanic 37.5 DegC 37.5 DegC Temperature Temporal Artery Pulse Rate 105 bpm 105 bpm O2 Sat 98 % 98 % Respiratory Rate 20 br/min 20 br/min Blood Pressure /83 mmHg /83 mmHg MEDICAL INFORMATION Medications Given: Medication Dose Route ondansetron (Zofran) 4 mg PO predniSONE 40 mg PO ondansetron (Zofran) 4 mg PO loperamide (Imodium) 4 mg PO Allergy Information: NSAIDs; Contrast Dye; Compazine; Phenergan; Toradol PHYSICIAN DOCUMENTATION Patient: NICKI OVIEDO Age: 45 years Sex: FEMALE : 1975 Associated Diagnoses: Enteritis Author: Jorge A Paulino DO Basic Information Time seen: Date & time 04/09/2021 00:16:00, Ambulatory to room, unassisted.. History source: Patient. Arrival mode: Private vehicle, walking. History limitation: None. History of Present Illness The patient presents with This patient presents to the emergency room for diarrhea times several times today she thinks 6 or 7 times, and vomiting x3-day, diarrhea yesterday, no fever, did not feel too well yesterday, did not see her family doctor in [place], came down here to visit family this weekend decided come here to the emergency room. She states she would like some Zofran steroids, states she has tramadol Percocets at home. She has a past medical history of Crohn's disease; she is employed, non-smoker, single, denies , states her overall is good. She denies any blood in her stool, or her emesis. Her head is normocephalic, she is smiling pleasant alert, she appears in no distress. She is very overweight. HEENT exam is normal, with a moist mouth, neck is supple, there is no anterior posterior supraclavicular or thyroid enlargement. The lungs are clear without expiratory wheeze rales rhonchi or parous chest motion heart rate and rhythm is regular murmur. Her abdomen is soft, little discomfort at all, bowel sounds are normal extremities are nonswollen nontender she is bright eyed and pleasant well-hydrated does not appear to require any IVs, and in view of the fact that seen her before, when she was more uncomfortable, she appears very good today, I do not think labs are required, we will medicate her, and she can follow-up with her family doctor in [place]. To this the patient agrees. She states she does not need a work excuse.. Medical Decision Making Orders Launch Orders Pharmacy: predniSONE 20 mg oral tablet (Prescribe): See Instructions, 1 tab(s) PO bid x 3 day, then one tab daily x 3 days, 9 tab(s), 0 Refill(s) Zofran 4 mg oral tablet (Prescribe): 4 mg = 1 tab(s), PO, TID, PRN: nausea/vomiting, 10 tab(s), 0 Refill(s) Zofran (Order): 4 mg, PO, Once predniSONE (Order): 40 mg, PO, Once Zofran (Order): 4 mg, PO, Once, Launch Orders Patient Care: Orthostatic Vital Signs (Order): 04/09/2021 0:30 EDT, Launch Orders Pharmacy: Imodium (Order): 4 mg, PO, Once. Impression and Plan Diagnosis Enteritis ([id number] K52.9, Discharge, Medical) hx Crohn's Plan Condition: Unchanged. Disposition: Discharged: time 04/09/2021 00:34:00. Patient was given the following educational materials: Viral Gastroenteritis, Adult. Follow up with: Duke Velazquez Within 3 to 5 days home we have provided Zofran, and steroids clear liquids only for 24 hours, then move to more solids, but no dairy for 48 hours You are welcomed to return anytime T H OMLEY< ER PHYSICIAN< Merrill Medina. DISCHARGE INFORMATION: Discharge Disposition: Home Discharge Location: Home PATIENT EDUCATION INFORMATION Instructions: Viral Gastroenteritis, Adult Follow-Up: With: Address: When: Duke Velazquez [address] [place], [place] [id number] Business (1) Within 3 to 5 days Comments: home we have provided Zofran, and steroids clear liquids only for 24 hours, then move to more solids, but no dairy for 48 hours You are welcomed to return anytime T H OMLEY< ER PHYSICIAN< H [facility] DIAGNOSIS: Enteritis Patient Understands: Yes - Patient/family/mitzi debo verbalizes understanding of instructions given Comment: Normal [facility] ED Note - Physicianon 2020 ED Note - Physician Patient: NICKI OVIEDO Age: 45 years Sex: FEMALE : 1975 Associated Diagnoses: Enteritis Author: Jorge A Paulino DO Basic Information Time seen: Date & time 04/09/2021 00:16:00, Ambulatory to room, unassisted.. History source: Patient. Arrival mode: Private vehicle, walking. History limitation: None. History of Present Illness The patient presents with This patient presents to the emergency room for diarrhea times several times today she thinks 6 or 7 times, and vomiting x3-day, diarrhea yesterday, no fever, did not feel too well yesterday, did not see her family doctor in [place], came down here to visit family this weekend decided come here to the emergency room. She states she would like some Zofran steroids, states she has tramadol Percocets at home. She has a past medical history of Crohn's disease; she is employed, non-smoker, single, denies , states her overall is good. She denies any blood in her stool, or her emesis. Her head is normocephalic, she is smiling pleasant alert, she appears in no distress. She is very overweight. HEENT exam is normal, with a moist mouth, neck is supple, there is no anterior posterior supraclavicular or thyroid enlargement. The lungs are clear without expiratory wheeze rales rhonchi or parous chest motion heart rate and rhythm is regular murmur. Her abdomen is soft, little discomfort at all, bowel sounds are normal extremities are nonswollen nontender she is bright eyed and pleasant well-hydrated does not appear to require any IVs, and in view of the fact that seen her before, when she was more uncomfortable, she appears very good today, I do not think labs are required, we will medicate her, and she can follow-up with her family doctor in [place]. To this the patient agrees. She states she does not need a work excuse.. Medical Decision Making Orders Launch Orders Pharmacy: predniSONE 20 mg oral tablet (Prescribe): See Instructions, 1 tab(s) PO bid x 3 day, then one tab daily x 3 days, 9 tab(s), 0 Refill(s) Zofran 4 mg oral tablet (Prescribe): 4 mg = 1 tab(s), PO, TID, PRN: nausea/vomiting, 10 tab(s), 0 Refill(s) Zofran (Order): 4 mg, PO, Once predniSONE (Order): 40 mg, PO, Once Zofran (Order): 4 mg, PO, Once, Launch Orders Patient Care: Orthostatic Vital Signs (Order): 04/09/2021 0:30 EDT, Launch Orders Pharmacy: Imodium (Order): 4 mg, PO, Once. Impression and Plan Diagnosis Enteritis ([id number]-FO K52.9, Discharge, Medical) hx Crohn's Plan Condition: Unchanged. Disposition: Discharged: time 04/09/2021 00:34:00. Patient was given the following educational materials: Viral Gastroenteritis, Adult. Follow up with: Duke Velazquez Within 3 to 5 days home we have provided Zofran, and steroids clear liquids only for 24 hours, then move to more solids, but no dairy for 48 hours You are welcomed to return anytime T Merrill PAULINO< ER PHYSICIAN< Merrill Medina. [Electronically Signed on: 04/09/2021 00:53 EDT] Jorge A Paulino DO [Electronically Signed on: 04/09/2021 01:01 EDT] Jorge A Paulino DO [Verified on: 04/09/2021 00:53 EDT] Jorge A [facility] ED Note-Nursingon 04-09-2021 ED Note-Nursing Patient came in C/O abdominal pain 8 on pain scale with nausea and vomiting. patient stated this happens due to Crohn's disease. Normal [facility] ED Patient Summaryon 021 ED Patient Summary [facility] - Emergency Department [address] [place] [id number] PATIENT DISCHARGE INSTRUCTIONS Patient Information Name: NICKI OVIEDO Age: 45 Years Date of : 1975 Reason For Visit: Diarrhea; Abdominal pain; ABD PAIN, VOMITING, DIARRHEA Arrival Time: 04/09/2021 00:04:46 Primary Care Physician: Duke Velazquez Attending Physician: Jorge A Paulino DO Comment: Visit Diagnosis: Diagnoses This Visit Abdominal pain ([id number]) Diarrhea ([id number]) Enteritis (K52.9) Prescription Information: If you have been given a prescription for narcotics, seek immediate medical attention if you have any difficulty breathing or any sudden status changes such as confusion and sleepiness. If you or anyone you know is experiencing suicidal thoughts, mental health, alcohol and/or drug addiction problems; contact the [facility] 08/01 Crisis Hotline -Text 5BRKY cc 140382. If you received any narcotics, sedation, or any other medication that causes drowsiness for the next 24 hours, unless otherwise directed: ? Do not drive a car. ? Do not operate machinery such as power tools, lawn mowers, drills, sewing machines, or stoves ? Avoid alcoholic beverages and drugs for allergies, nerves, or sleep ? Do not make important personal or business decisions or sign any legal documents With: Address: Erum: Duke Velazquez [address] [place] [id number] Business (1) Within 3 to 5 days Comments: home we have provided Zofran, and steroids clear liquids only for 24 hours, then move to more solids, but no dairy for 48 hours You are welcomed to return anytime T H JEFFERSON< ER PHYSICIAN< H Rodrigo Medina Medication Information: The exam and treatment you received today in the [facility] Emergency Department were for an urgent problem and are not intended as complete care. It is important for you to follow up with a doctor, nurse practitioner, or physician?s seismic survey assistant for ongoing care. If your symptoms become worse or you do not improve as expected and you are unable to reach your usual health care provider, you should return to the Emergency Department, we are available 24 hours a day. For those patients who have received Radiology results, the interpretation of your X-ray as given to you by our Emergency Department physician is only a preliminary report. The Radiologist will review your films and if there is a change in the diagnosis you will be notified by phone. Please make sure you have provided a working phone number so we can reach you if necessary. In the event that you had a lab culture while you were a patient in the Emergency Department, you will be notified by phone if there is a need to change your antibiotic. Please make sure you have provided a working phone number so we can reach you if necessary. [facility] Emergency Department has provided you with a complete list of medications post discharge. Please inform your stroke coordinator/provider of your visit and for further instruction on these medications. Any specific questions regarding your chronic medications and dosages should be discussed with your primary care physician(s) and/or pharmacist. New Medications Printed Prescriptions predniSONE (predniSONE 20 mg oral tablet) 1 tab(s) PO bid x 3 day, then one tab daily x 3 days. Refills: 0. Medications That Were Updated - Follow Below Instructions Printed Prescriptions Updated: ondansetron (Zofran 4 mg oral tablet) 1 tab(s) Oral 3 times a day as needed nausea/vomiting. Refills: 0. Other Medications Updated: ondansetron (Zofran 4 mg oral tablet) 1 tab(s) Oral every 8 hours as needed nausea/vomiting. Refills: 0. Medications to Continue That Have Not Changed Other Medications acetaminophen-oxycodo ne (Percocet 10 mg-325 mg oral tablet) 1 tab(s) Oral every 6 hours. dicyclomine (Bentyl 20 mg oral tablet) 1 tab(s) Oral 4 times a day for 5 Days. Refills: 0. escitalopram (Lexapro 10 mg oral tablet) 1 tab(s) Oral every day. lactobacillus acidophilus (Acidophilus Extra Strength oral capsule) 1 cap(s) Oral every day. Refills: 0. lisinopril (lisinopril 10 mg oral tablet) 1 tab(s) Oral every day. mesalamine (mesalamine 800 mg oral delayed release tablet) 1 tab Oral 3 times a day. tiZANidine (Zanaflex 4 mg oral tablet) 2 tab(s) Oral 3 times a day. traZODone (traZODone 150 mg oral tablet) 1 tab(s) Oral At bedtime. Visit Information Allergies: Substance Reaction Symptoms Type Comments Compazine Drug NSAIDs Drug Phenergan Drug Toradol Drug Contrast Dye Other Vital Signs: Vitals and Measurements this Visit (last charted value for your 04/09/2021 visit) Vital Signs This Visit Temperature Tympanic: 37.5 DegC Peripheral Pulse Rate: 105 bpm Respiratory Rate: 20 br/min Systolic Blood Pressure: 141 mmH (more content not included)... Normal [facility] ER URINE PROFILEon Bilirubin Ql (U) Negative Normal NEGATIVE [facility] Comment on above: Performed By: #### E RUR ####[facility] [address] [place], [place] [address]Dr. Phi Souza Clarity (U) CLEAR Normal CLEAR [facility] Comment on above: Performed By: #### E RUR ####[facility] Wsqrumsibr[address] [place], [place] [address]Dr. Phi Souza Color (U) LT. YELLOW Normal YELLOW [facility] Comment on above: Performed By: #### E RUR ####[facility] M[address]ww[address]bf[address] [place], [place] [address]Dr. Phi Souza ERUAHD A micrscopic examination will be performed if indicated. Normal [facility] Comment on above: Performed By: #### E RUR ####[facility] Ioffomtqmr[address] [place], [place] [address]Dr. Phi Souza Glucose Ql (U) Negative Normal NEGATIVE [facility] Comment on above: Performed By: #### E RUR ####[facility] Ofmmkgvfzb224[address] [place], [place] [address]Dr. hPi Souza Hemoglobin Ql (U) Negative Normal NEGATIVE [facility] Comment on above: Performed By: #### E RUR ####[facility] Ujskrvhfmq[address] [place], [place] [address]Dr. Phi Souza Ketones Ql (U) Negative Normal NEGATIVE [facility] Comment on above: Performed By: #### E RUR ####[facility] L[address]vms[address] [place], [place] [address]Dr. Phi Souza LEUKOCYTES Negative Normal NEGATIVE [facility] Comment on above: Performed By: #### E RUR ####[facility] Fftofnjzly[address] [place], [place] [address]Dr. Phi Souza Nitrite Ql (U) Negative Normal NEGATIVE [facility] Comment on above: Performed By: #### E RUR ####[facility] W[address]irvchrj[address] [place], [place] [address]Dr. Phi Harley pH (U) 6.0 [pH] Normal 5-9 [facility] Comment on above: Performed By: #### E RUR ####[facility] Cq[address] [place], [place] [address]Dr. Phi Souza SPEC GRAVITY 1.025 Normal 1.005-<=1.[address] [facility] Comment on above: Performed By: #### E RUR ####[facility] Zurrpw[address] [place], [place] [address]Dr. Phi Harley UA PROTEIN Negative Normal NEGATIVE/ TRACE [facility] Comment on above: Performed By: #### E RUR ####[facility] Xhymqtkyuq[address] [place], [place] [address]Dr. Phi Souza UR MICRO IND NOT INDICATED Normal [facility] Comment on above: Performed By: #### E RUR ####[facility] Nbrf[address]fw[address] [place], [place] [address]Dr. Phi Souza Urobilinogen Qn (U) 0.2 {Gianni'U}/dL Normal 0.2 - 1. 0 [facility] Comment on above: Performed By: #### E RUR ####[facility] [address] [place] [address]Dr. Phi Souza HCG,URINEon 04-09-2021 Beta HCG ( test) Ql (U) Negative Normal Negative [facility] Comment on above: Performed By: #### L IPAS #### [address] [id number] LIPASEon 04-09-2021 Lipase [Catalytic activity/Vol] 20 U/L Normal 9 - 82 [facility] Comment on above: Result Comment: Delicia puncture immediately after or during the administration of Metamizole may lead to falsely low results. Testing should be performed immediately prior to Metamizole dosing. F-zpyvzo-a-benzoquinone imine (metabolite of Acetaminophen) will generate erroneously low results in samples for patients that have taken toxic doses of acetaminophen. Performed By: #### L IPAS #### [address] [phone] Lipase [Catalytic activity/Vol] 80.0 U/L Normal 23.0-300.0 [facility] Comment on above: Performed By: #### C NELA CARRILLO AMY ####[facility] F[address]qib[address] [place], [place] [address]Dr. Phi Souza PROF 14(COMP METB)on 021 Albumin [Mass/Vol] 3.3 g/dL Critically low 3.5-5.0 [facility] Comment on above: Performed By: #### C NELA CARRILLO AMY ####[facility] Mannoktiey[address] [place], [place] [address]Dr. Phi Souza Albumin/Globulin [Mass ratio] 0.8 {ratio} Normal [facility] Comment on above: Performed By: #### C NELA CARRILLO NICKI ####[facility] Dogbesjcri[address] [place], [place] [address]Dr. Phi Souza ALP [Catalytic activity/Vol] 79 U/L Normal 38-126 [facility] Comment on above: Performed By: #### C NELA CARRILLO, NICKI ####[facility] [address] [place] [address]Dr. Phi Souza ALT [Catalytic activity/Vol] 39 U/L Normal 9-52 [facility] Comment on above: Performed By: #### C LORENA LIPA, NICKI ####[facility] [address] [place] [address]Dr. Phi Souza Anion gap [Moles/Vol] 8.6 mmol/L Normal [facility] Comment on above: Performed By: #### C MP LIPA, NICKI ####[facility] [address] [place] [address]Dr. Phi Souza AST [Catalytic activity/Vol] 18 U/L Normal 14-36 [facility] Comment on above: Performed By: #### C LORENA LIPA, NICKI ####[facility] [address] [place], [place] [address]Dr. Phi Souza Bilirubin [Mass/Vol] 0.4 mg/dL Normal 0.2-1.3 [facility] Comment on above: Performed By: #### C MP LIPA, NICKI ####[facility] [address] [place] [address]Dr. Phi Souza Calcium [Mass/Vol] 8.9 mg/dL Normal 8.4-10.2 [facility] Comment on above: Performed By: #### C MP LIPA, NICKI ####[facility] Qxbso[address] [place], [place] [address]Dr. Phi Souza Chloride [Moles/Vol] 101 mmol/L Normal 98-107 [facility] Comment on above: Performed By: #### C MP, LIPA, NICKI ####[facility] [address] [place] [address]Dr. Phi Souza CO2 [Moles/Vol] 28.3 mmol/L Normal 22.0-30.0 [facility] Comment on above: Performed By: #### C MP, LIPA, NICKI ####[facility] [address] [place] [address]Dr. Phi Souza Creatinine [Mass/Vol] 1.03 mg/dL Normal 0.52-1.04 [facility] Comment on above: Performed By: #### C MP LIPA, NICKI ####[facility] [address] [place] [address]Dr. Phi Souza EGFR-AF WALLISIAN >60 Normal >=60 [facility] Comment on above: Performed By: #### C MP, LIPA, NICKI ####[facility] [address] [place] [address]Dr. Phi Souza EGFR-NON AF WALLISIAN 58 mL/min/1.73m2 Critically low >=60 [facility] Comment on above: Performed By: #### C MP LIPA, NICKI ####[facility] V[address] [place], [place] [address]Dr. Phi Souza Globulin (S) [Mass/Vol] 4.1 g/dL Normal [facility] Comment on above: Performed By: #### C LORENA LIPA, NICKI ####[facility] [address] [place], [place] [address]Dr. Phi Souza Glucose [Mass/Vol] 167 mg/dL Critically high 74-106 [facility] Comment on above: Performed By: #### C LORENA LIPA, NICKI ####[facility] Ech[address] [place], [place] [address]Dr. Phi Souza Potassium [Moles/Vol] 3.9 mmol/L Normal 3.4-5.0 [facility] Comment on above: Performed By: #### C MP LIPA, NICKI ####[facility] U[address]meul[address] [place], [place] [address]Dr. Phi Souza Protein [Mass/Vol] 7.4 g/dL Normal 6.1-8.2 [facility] Comment on above: Performed By: #### C MP LIPA, NICKI ####[facility] [address] [place], [place] [address]Dr. Phi Souza Sodium [Moles/Vol] 134 mmol/L Critically low 137-145 [facility] Comment on above: Performed By: #### C MP, LIPA, NICKI ####[facility] [address] [place], [place] [address]Kk. Phi Souza Urea nitrogen [Mass/Vol] 10.0 mg/dL Normal 7.0-17.0 [facility] Comment on above: Performed By: #### C NELA CARRILLO AMY ####[facility] [address] [place], [place] [address]Sw. Phi Souza Urea nitrogen/Creatinine [Mass ratio] 9.7 mg/mg Normal [facility] Comment on above: Performed By: #### C NELA CARRILLO AMY ####[facility] [address] [place], [place] [address]Zw. Phi Souza Provider Note - ED v3on 03-19 Provider Note - ED v3 Provider Note: Chart Review: ED NOTES ED NOTES: A 45-year-old female patient comes into the emergency department today with complaints of abdominal pain that started yesterday. She states she has history of Crohn disease. States the pain was relieved with some Percocet that she took yesterday. States pain came back has not gone away. States associated nausea, vomiting, diarrhea. Rates pain a nine on 10 on the pain scale. Denies any sick contacts that she is aware of. Placed her right upper abdomen as well as left lower quadrant of the abdomen. 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 HISTORY OF PRESENTING ILLNESS NICKI is a 45 year old Female and was seen by me at 09-Apr-2021 06:02 for a chief complaint of abdominal pain ( i'M HERE VISITING, AND I HAVE CROHN'S DISEASE AND i'M HAVING A LOT OF ABDOMINAL PAIN AND SOME DIARRHEA AND VOMITING )(1). The historian is the patient. Triage Information: Most recent Vital Sign Value Date Temp (F): 97.1 04-09-2021 05:33 Temp (C): 36.2 04-09-2021 05:33 Heart Rate (beats/min): 99 04-09-2021 05:33 Respirations (breaths/min): 18 04-09-2021 05:33 SpO2 (%): 95 04-09-2021 05:33 BP Systolic (mm Hg): 136 04-09-2021 05:33 BP Diastolic (mm Hg): 89 04-09-2021 05:33 Presenting Symptoms: diarrhea. Located in the: right upper quadrant and left lower quadrant area. The context is Unknown. The symptoms started yesterday. PAST MEDICAL HISTORY ALLERGIES/INTOLERANCE S: Allergy Allergen: contrast (specific type unknown) Type: Contrast Reaction: Itching Allergen: Compazine Type: Drug Reaction: Rash Allergen: Phenergan Type: Drug Reaction: Other Allergen: NSAIDs Type: Drug Category Reaction: Anaphylaxis HEALTH HISTORY: No documented data. OUTPATIENT MEDICATIONS: Home Medications Review Status for Reconciliation: Not Done Med Status: No Current Medications SIGNIFICANT EVENTS: Past Medical History Description:Crohn's disease Description:Pancreati tis Description:Endometri osis Past Surgical History Description:ERCP Description:Appendect alysia Description:Cholecyst ectomy Description:right ovary removed REVIEW OF SYSTEMS CONSTITUTIONAL: Negative for: chills and fever RESPIRATORY: Negative for: cough and dyspnea GASTROINTESTINAL: POSITIVE for: abdominal pain, diarrhea, nausea and vomiting; All other systems reviewed and are negative PHYSICAL EXAM CONSTITUTIONAL: Appearance: well appearing Development: well developed Distress: MILD Manner: appropriate for situation Mentation: awake and alert EYES: EOMI CARDIOVASCULAR: Normal rate, regular rhythm. Heart sounds S1, S2. No murmurs, rubs or gallops. PMI non-displaced. RESPIRATORY: Breath sounds clear and equal bilaterally. GASTROINTESTINAL: Bowel Sounds Detail: Bowel Sounds: normal Abdominal Tenderness: (Generalized tenderness in all quadrants) Abdominal Guarding: (Guarding in all quadrants) MUSCULOSKELETAL: Weight Bearing: able NEUROLOGICAL: Level of Consciousness: alert and follows commands Speech: clear PSYCHIATRIC: Alert and oriented to person, place, time/situation. normal mood and affect. No apparent risk to self or others. CRITICAL CARE RESULTS: Recent Lab Results: I have reviewed these laboratory results: Urine Test 09-Apr-2021 08:00:00 ResultValue HCG, Urine NEGATIVE Urinalysis with Culture if Indicated 09-Apr-2021 08:00:00 ResultValue Color, Urine YELLOW Reference Range: STRAW,YELLOW Appearance, Urine CLEAR Specific [place], Urine 1.014 pH, Urine 6.0 Protein, Urine NEGATIVE Glucose, Urine NEGATIVE Blood, Urine MODERATE(2+) A Ketones, Urine NEGATIVE Bilirubin, Urine NEGATIVE Urobilinogen, Urine <2.0 Nitrite, Urine NEGATIVE Leukocyte Esterase, Urine NEGATIVE Urinalysis, Microscopic 09-Apr-2021 08:00:00 ResultValue White Cells NONE Red Blood Cells 1 Epithelial Cells, Squamous 1 Mucous 1+ Coronavirus 2019 by PCR 09-Apr-2021 06:21:00 ResultValue Fluid Source Nasal, Nasopharyngeal Coronavirus 2019,PCR NOT DETECTED Reference Range: Not Detected . This test has received FDA Emergency Use Authorization (EUA) and has been verified by [facility]. This test is only authorized for the duration of time that circumsta Date of Symptom Onset [id number] Complete Blood Count + Differential 09-Apr-2021 06:21:00 ResultValue White Blood Cell Count 8.0 Red Blood Cell Count 4.28 HGB 12.4 HCT 38.7 MCV 90 MCHC 32.0 PLT 276 RDW-CV 12.2 Neutrophil % 76.3 Immature Granulocytes % 0.4 Lymphocyte % 15.9 Monocyte % 6.7 Eosinophil % 0.5 Basophil % 0.2 Neutrophil Count 6.11 Lymphocyte Count 1.27 Monocyte Count 0.54 Eosinophil Count 0.04 Basophil Count 0.02 Comprehensive Metabolic Panel 09-Apr-2021 06:21:00 ResultValue Glucose, Serum 206 H NA 135 L K 4.2 CL 100 (more content not included)... Normal [facility] Risk Screen - Adult Emergenc yon 04-09-2021 Risk Screen - Adult Emergency Preferred Language: Preferred Language: Preferred Language for Discussing Health Care (patient/designee)Iggy blake Advanced Directives: Advance Directive/DNRno Family Violence Adult: Abuse Screen: Are you or have you been threatened or abused physically, emotionally, or sexually by anyoneno Learning Assessment (Patient): Learning Assessment (Patient): Patient is Able to be Assessed for Learningyes Factors Influencing Readiness to Learnacuteness of illness Factors that Impact Ability to Learnacuteness of illness Devices/Methods Used to Communicatenone Learning Preferencesaudio; skill demonstration; verbal instruction; video; written material Cultural Considerationsnone Developmental Considerationsnone Yarsani Considerationsnone Learning Assessment (Other Learner): Learning Assessment (Other Learner): Other learner availableno Pressure Injury/TB/Substance: Pressure Injury: Pressure Injury Present on Admissionno Do you have a coughno Smoking Statusnever smoker Alcohol Usedenies Drug Usedenies Admission Risk Screen: Significant IndicatorsComplete CAGE: CAGE: Is this an injured patient at a Trauma Center ([facility]/[place]/Gays/Amie nancy/[place]/Rowe): no Electronic Signatures: Cindy Zapien (RN) (Signed 09-Apr-2021 05:42) Authored: Preferred Language, Advanced Directives, Family Violence Adult, Learning Assessment (Patient), Learning Assessment (Other Learner), Pressure Injury/TB/Substance, Pressure Injury, CAGE Last Updated: 09-Apr-2021 05:42 by Cindy Zapien (RN) Normal [facility] UA MICROSCOPICon 04-09-2021 Mucus Ql (Urine sed) 1+ /LPF Normal [facility] Comment on above: Performed By: #### U AMIC #### [address] [id number] RBC 1 /HPF Normal 0-5 [facility] Comment on above: Performed By: #### U AMIC #### [address] [phone] SQUAMOUS EPITH. CELLS 1 /HPF Normal [facility] Comment on above: Performed By: #### U AMIC #### [address] [phone] WBC NONE Normal 0-5 [facility] Comment on above: Performed By: #### U AMIC #### [address] [phone] URINALYSIS WITH CULTURE IF I NDICATEDon 04-09-2021 Appearance (U) CLEAR Normal CLEAR [facility] Comment on above: Performed By: #### L IPAS #### [address] [phone] Bilirubin Ql (U) Negative Normal NEGATIVE [facility] Comment on above: Performed By: #### L IPAS #### [address] [phone] Color (U) YELLOW Normal STRAW,YELLOW [facility] Comment on above: Performed By: #### L IPAS #### [address] [id number] Glucose Ql (U) Negative Normal NEGATIVE [facility] Comment on above: Performed By: #### L IPAS #### [address] [id number] Hemoglobin Ql (U) MODERATE(2+) Abnormal NEGATIVE [facility] Comment on above: Performed By: #### L IPAS #### [address] [phone] Ketones Ql (U) Negative Normal NEGATIVE [facility] Comment on above: Performed By: #### L IPAS #### [address] [phone] Leukocyte esterase Test strip Ql (U) Negative Normal NEGATIVE [facility] Comment on above: Performed By: #### L IPAS #### [address] [id number] Nitrite Ql (U) Negative Normal NEGATIVE [facility] Comment on above: Performed By: #### L IPAS #### [address] [id number] pH (U) 6.0 [pH] Normal 5.0 - 8.0 [facility] Comment on above: Performed By: #### L IPAS #### [address] [id number] Protein Ql (U) Negative Normal NEGATIVE [facility] Comment on above: Performed By: #### L IPAS #### [address] [phone] Specific gravity (U) [Rel density] 1.014 Normal 1.005 - 1.035 [facility] Comment on above: Performed By: #### L IPAS #### [address] [phone] Urobilinogen (U) [Mass/Vol] mg/dL Normal 0.0 - 1.9 [facility] Comment on above: Performed By: #### L IPAS #### [address] [id number] CBC W Auto Differential pane l (Bld)on 01-30-2021 BASOPHIL ABSOLUTE COUNT 0.03 x10*3/uL Normal 0.0-0.1 [facility] Comment on above: Performed By: #### 5 7021-8 #### [facility] [address] Basophils/100 WBC (Bld) 0.3 % Normal 0.0-1.1 [facility] Comment on above: Performed By: #### 5 7021-8 #### [facility] [address] EOS ABSOLUTE COUNT 0.00 x10*3/uL Normal 0.0-0.5 [facility] Comment on above: Performed By: #### 5 7021-8 #### [facility] [address] Eosinophils/100 WBC (Bld) 0.0 % Normal 0.0-6.0 [facility] Comment on above: Performed By: #### 5 7021-8 #### [facility] [address] Hematocrit (Bld) [Volume fraction] 40.4 % Normal 36.0-48.0 [facility] Comment on above: Performed By: #### 5 7021-8 #### [facility] [address] Hemoglobin (Bld) [Mass/Vol] 13.5 g/dL Normal 11.0-17.0 [facility] Comment on above: Performed By: #### 5 7021-8 #### [facility] [address] IMMATURE GRAN ABSOLUTE COUNT 0.12 x10*3/uL Normal 0.0-0.5 [facility] Comment on above: Performed By: #### 5 7021-8 #### [facility] [place] [id number] [facility] Immature granulocytes/100 WBC (Bld) 1.0 % Normal 0.0-2.99 [facility] Comment on above: Performed By: #### 5 7021-8 #### [facility] [address] LYMPHOCYTE ABSOLUTE COUNT 0.82 x10*3/uL Normal 0.5-3.2 [facility] Comment on above: Performed By: #### 5 7021-8 #### [facility] [address] Lymphocytes/100 WBC (Bld) 7.1 % Low 13.0-39.0 [facility] Comment on above: Performed By: #### 5 7021-8 #### [facility] [address] MCH (RBC) [Entitic mass] 30.1 pg Normal 26.0-33.0 [facility] Comment on above: Performed By: #### 5 7021-8 #### [facility] [address] MCV (RBC) [Entitic vol] 90.2 fL Normal 81.0-98.0 [facility] Comment on above: Performed By: #### 5 7021-8 #### [facility] [address] MEAN CORPUSCULAR HGB CONC 33.4 g/dl Normal 31.0-35.0 [facility] Comment on above: Performed By: #### 5 7021-8 #### [facility] [address] MONOCYTE ABSOLUTE COUNT 0.36 x10*3/uL Normal 0.0-1.0 [facility] Comment on above: Performed By: #### 5 7021-8 #### [facility] [address] Monocytes/100 WBC (Bld) 3.1 % Low 4.0-13.0 [facility] Comment on above: Performed By: #### 5 7021-8 #### [facility] [place] [id number] [facility] NEUTROPHIL COUNT ABSOLUTE 10.16 x10*3/uL High 1.5-6.2 [facility] Comment on above: Performed By: #### 5 7021-8 #### [facility] [address] [address] [place] Neutrophils/100 WBC (Bld) 88.5 % High 47.0-76.0 [facility] Comment on above: Performed By: #### 5 7021-8 #### [facility] [address] NUCLEATED RBC ABSOLUTE COUNT 0.00 x10*3/uL Normal [facility] Comment on above: Performed By: #### 5 7021-8 #### [facility] [address] Nucleated RBC/100 WBC (Bld) [Ratio] 0.0 % Normal [facility] Comment on above: Performed By: #### 5 7021-8 #### [facility] [address] PLATELET COUNT 335 x10*3/uL Normal 150-400 [facility] Comment on above: Performed By: #### 5 7021-8 #### [facility] [address] Platelet mean volume (Bld) [Entitic vol] 9.2 fL Normal 9.0-12.1 [facility] Comment on above: Performed By: #### 5 7021-8 #### [facility] [address] RED BLOOD COUNT 4.48 x10*6/uL Normal 3.8-6.0 [facility] Comment on above: Performed By: #### 5 7021-8 #### [facility] [address] RED CELL DISTRIBUTION WIDTH 40.3 fL Normal 36.7-49.4 [facility] Comment on above: Performed By: #### 5 7021-8 #### [facility] [address] WHITE BLOOD COUNT 11.49 X10*3/uL Normal 3.8-11.5 [facility] Comment on above: Performed By: #### 5 7021-8 #### [facility] [address] METABOLIC PANE Johan 01-30-2021 Albumin [Mass/Vol] 3.6 g/dL Normal 3.2-5.0 [facility] Comment on above: Performed By: #### M PC, LIP #### [facility] [address] Albumin/Globulin [Mass ratio] 0.9 {ratio} Normal [facility] Comment on above: Performed By: #### M PC, LIP #### [facility] [address] ALP [Catalytic activity/Vol] 74 U/L Normal 50-136 [facility] Comment on above: Performed By: #### M PC, LIP #### [facility] [address] ALT [Catalytic activity/Vol] 35 U/L Normal 30-65 [facility] Comment on above: Performed By: #### M PC, LIP #### [facility] [address] Anion gap [Moles/Vol] 13 mmol/L Normal 10-20 [facility] Comment on above: Performed By: #### M PC, LIP #### [facility] [address] AST [Catalytic activity/Vol] 16 U/L Normal 15-37 [facility] Comment on above: Performed By: #### M PC, LIP #### [facility] [address] Bilirubin [Mass/Vol] 0.3 mg/dL Normal 0.0-1.0 [facility] Comment on above: Performed By: #### M PC, LIP #### [place] [address] [place] Calcium [Mass/Vol] 8.7 mg/dL Normal 8.7-10.5 [facility] Comment on above: Performed By: #### M PC, LIP #### [facility] [address] Chloride [Moles/Vol] 101 mmol/L Normal 99-111 [facility] Comment on above: Performed By: #### M PC, LIP #### [facility] [place] [id number] [facility] CO2 [Moles/Vol] 26 mmol/L Normal 21.0-32.0 [facility] Comment on above: Performed By: #### M PC, LIP #### [facility] [address] Creatinine [Mass/Vol] 1.1 mg/dL Normal 0.5-1.2 [facility] Comment on above: Performed By: #### M PC, LIP #### [facility] [address] GFR/1.73 sq M.predicted among non-blacks MDRD (S/P/Bld) [Vol rate/Area] 58 mL/min/{1.73_m2} Normal >59 [facility] Comment on above: Performed By: #### M PC, LIP #### [facility] [address] Globulin (S) [Mass/Vol] 3.8 g/dL Normal 1.3-4.7 [facility] Comment on above: Performed By: #### M PC, LIP #### [place] [address] [place] Glucose [Mass/Vol] 209 mg/dL High 70-100 [facility] Comment on above: Performed By: #### M PC, LIP #### [facility] [address] Potassium [Moles/Vol] 4.2 mmol/L Normal 3.5-5.0 [facility] Comment on above: Performed By: #### M PC, LIP #### [facility] [place] [id number] [facility] Protein [Mass/Vol] 7.4 g/dL Normal 6.0-8.5 [facility] Comment on above: Performed By: #### M PC, LIP #### [facility] [place] [id number] [facility] Sodium [Moles/Vol] 136 mmol/L Low 137-147 [facility] Comment on above: Performed By: #### M PC, LIP #### [facility] [place] [id number] [place] Urea nitrogen [Mass/Vol] 18 mg/dL Normal 7-22 [facility] Comment on above: Performed By: #### M PC, LIP #### [facility] [address] Urea nitrogen/Creatinine [Mass ratio] 16.4 mg/mg Normal 6-25 [facility] Comment on above: Performed By: #### M PC, LIP #### [facility] [address] Abdomen / Pelvis With Con ton 01-30-2021 CT Abdomen / Pelvis With Cont [address] SCAN Name: NICKI OVIEDO Pt Type: REG ER MR #: [id number] Room & Bed: Date of : 1975 Date of Service: 01/30/21 Age: 45 Ordering Doctor: Maegan Liang MD Sex: Female Family Doctor: Miscellaneous Physician Order #: [id number] Dictating Doctor: Sadiq Medina M.D. Admit Date: Referring Doctor: Other Doctor: Additional Copies: === WHRPT:HIE EXAM: CT abdomen and pelvis with contrast dated 01/30/2021 8:01 PM EDT HISTORY: 45 years old Female with abdominal pain and diarrhea. History of appendectomy and cholecystectomy.. COMPARISON STUDY: 12/23/2020 TECHNIQUE: Multidetector spiral CT of the abdomen and pelvis was performed from lung bases to pubic symphysis. 75 mL Omnipaque-350 Intravenous contrast was administered during this examination. Portal venous imaging was obtained. Axial, coronal and sagittal multiplanar reformats were performed by the technologist. Dose reduction techniques were achieved by using automated exposure control and/or adjustment of mA and/or kV according to patient size and/or use of iterative reconstruction technique. FINDINGS: Lung Bases: No acute or significant lung base finding. Normal heart size. No pleural or pericardial effusion. Liver: The liver is enlarged demonstrating diffuse low attenuation consistent with hepatic steatosis. There is gas suggested within the common bile duct which may represent reflux similar to the prior. Spleen: Unremarkable Pancreas: The pancreas is normal in appearance without focal lesions or abnormal enhancement. There is very slight edema not excluded on images 40 through 46 of series 2 at the pancreatic head and neck and uncinate process which may be partially due to volume averaging. Although no large fluid collection is seen, laboratory correlation with serum lipase is suggested. Adrenal Glands: Unremarkable Kidneys: Left nephrolithiasis measures 5 mm at the inferior aspect of the left kidney. There are right renal stones measuring up to 3.6 mm. No hydronephrosis is seen however very mild bilateral perinephric edema and stranding is noted slightly more pronounced on the right. There are no ureteric stones identified in either side. Bladder: Unremarkable Bowel: The stomach is grossly normal in appearance. Small bowel and colon are normal in caliber and distribution. The appendix is not visualized; however, no secondary findings of acute appendicitis identified. Stool is noted in the colon suggesting a degree of constipation. There is again noted to be underdistention likely accounting for slight thickening of the descending and sigmoid colon without significant surrounding inflammation or significant interval change in appearance when compared to the previous study. Scattered fluid-filled enteric bowel is seen in the abdomen. Lymphadenopathy: No mesenteric, retroperitoneal or periportal lymphadenopathy. Abdominal Wall and Mesentery: Unremarkable. Vasculature: The visualized abdominal aorta is normal in size and caliber. Abdominal and pelvic vessels demonstrate normal enhancement. Pelvic Organs: Unremarkable Musculoskeletal: No aggressive focal bony lesions, acute fractures or dislocation. IMPRESSION: Although colonic mural thickening at the distal transverse and descending/sigmoid region is likely due to underdistention or peristalsis, very slight infectious or inflammatory enterocolitis may be present. Multiple bilateral nonobstructing renal stones. Mild bilateral perinephric edema for which laboratory correlation for infection is suggested. Hepatomegaly and hepatic steatosis. Incidental findings as above. THIS REPORT HAS BEEN ELECTRONICALLY SIGNED BY: 01/30/2021 21:38: Sadiq Medina DO 01/30/21 0870 DICTATED BY: Sadiq Medina M.D. CC: CONFIDENTIALITY NOTICE: This report is for the sole use of the intended recipient and may contain confidential and privileged information. Any unauthorized review, use, disclosure or distribution is prohibited. If you are not the intended recipient, please contact [facility] at [phone] and destroy all copies of the original. Normal [facility] Choriogonadotropin (pregnanc y test) [Presence] in Urineon 01-30-2021 HCG ( test) Ql (U) Negative Normal Negative [facility] Comment on above: Performed By: #### 2 106-3 ####CLINICAL LABORATORY[address] LIPASEon 01-30-2021 Lipase [Catalytic activity/Vol] 108 U/L Low 114-286 [facility] Comment on above: Performed By: #### M PC, LIP ####CLIN[facility] LABORATORY[address] Microscopic observation LM N om (Urine sed)on 01-30-2021 Bacteria LM Ql (Urine sed) Trace Normal Trace [facility] Comment on above: Performed By: #### 1 5-8, 92822-1 #### [facility] [address] Epithelial cells Ql (U) 0-5 Normal 0-5 [facility] Comment on above: Performed By: #### 1 5-8, 78186-5 #### [facility] [address] RBC Ql (U) 3-10 Normal 0-3 [facility] Comment on above: Performed By: #### 1 5-8, 97172-2 #### [facility] [address] WBC Visual Ql (U) None Seen Normal 0-5 [facility] Comment on above: Performed By: #### 1 5-8, 73748-1 #### [facility] [place] [id number] [facility] Physician Documentationon Physician Documentation [place] [address] Medical Records Department ED Physician Documentation Name: NICKI OVIEDO Pt Type: DEP ER MR #: [id number] Room AND Bed: Date of : 1975 Date of Service: 01/30/21 Age: 45 Ordering Doctor: Sex: Female Family Doctor: Miscellaneous Physician Order #: Dictating Doctor: Maegan Liang MD Admit Date: Referring Doctor: Other Doctor: Additional Copies: === ED HPI Abdominal Pain General Chief Complaint Abdominal Pain Stated Complaint ABDOMINAL PAIN/DIARRHEA Time Seen by Provider 01/30/21 19:56 History of Present Illness HPI Narrative Patient presents with complaints of abdominal discomfort. Patient states that the pain is mostly located in the lower part of her abdomen but does radiate throughout the whole entire abdomen. Patient states for the most part it sharp and crampy. She states that she does have a history of Crohn's. She states that she started having symptoms today also has noticed that she started to have increasing diarrhea she tried taking her pain tablet at home but did not get any relief. She denies any associated fever or vomiting. Review of Systems - ED ROS Constitutional Denies fever, chills and weakness Eyes Denies eye pain, eye discharge and vision change ENT Denies ear pain, throat pain, dental pain and congestion Cardiovascular Denies chest pain, palpitations and edema Respiratory Denies cough, dyspnea and wheezes Gastrointestinal Reports abdominal pain, nausea and diarrhea; Denies vomiting and hematemesis Genitourinary Denies urgency, dysuria and hematuria Musculoskeletal Denies back pain, joint swelling and arthralgia Integumentary Denies rash and lesions Neurological Denies headache, weakness, numbness and paresthesias Allergies/Adverse Reactions NSAIDS (Non-Steroidal Anti-Inflamma Allergy (Verified 09/12/20 21:30) Anaphylaxis prochlorperazine [From Compazine] Allergy (Verified 09/12/20 21:30) Rash promethazine [From Phenergan] Allergy (Verified 09/12/20 21:30) Dizziness iv dye Allergy (Uncoded 09/12/20 21:31) Itching Home Medications Home Medications escitalopram oxalate [Lexapro] 10 mg PO DAILY 09/12/20 [Confirmed 01/30/21] lisinopril 10 mg PO DAILY 09/12/20 [Confirmed 01/30/21] mesalamine [Asacol] 800 mg PO TID 09/12/20 [Confirmed 01/30/21] tizanidine [Zanaflex] 4 mg PO TID 09/12/20 [Confirmed 01/30/21] trazodone 150 mg PO BEDTIME 09/12/20 [Confirmed 01/30/21] hydrocodone-acetamino phen [Salida] 1 tab PO Q6H PRN 01/30/21 [Confirmed 01/30/21] Past Medical History Medical History Acute Crohn's disease (Medical) K50.90 Endometriosis (Medical) N80.9 Hypertension (Medical) I10 Past Surgical History Surgical History Hx of appendectomy (Surgical) Z90.49 Hx of cholecystectomy (Surgical) Z90.49 Hx of unilateral oophorectomy (Surgical) Z90.721 rt Past Social History Current Living Situation: Home with Family Marital Status: Single Chewing Tobacco Status: Never Smoking Status: Never Smoker Alcohol Use: Never Recreational Drug Use: Never Physical Exam Initial Vital Signs Vital Signs First Set: Vital Signs First Set Temp Pulse Resp BP Pulse Ox 98.2 F 92 18 179/107 H 96 01/30/21 19:35 01/30/21 19:35 01/30/21 19:35 01/30/21 19:35 01/30/21 19:35 General General Appearance: Present Alert and In No Apparent Distress Head Head: Present Atraumatic, Normocephalic and Normal Inspection Eye Eye Exam: Present Normal Apperance, PERRL and EOMI ENT ENT Exam: Present hearing grossly normal, no evidence of ENT injury and Normal Nose Neck Neck: Present non-tender, full range of motion, supple and trachea midline Chest Chest Exam: Present Normal Inspection and Symmetric Chest Wall Rise; Not Present Tenderness Respiratory Respiratory Exam: Present Normal Lung Sounds and Other (Normal respiratory effort good air exchange clear to auscultation); Not Present Respiratory Distress Cardiovascular Cardiovascular/Chest: Present normal peripheral pulses, regular rate, rhythm and no edema Abdominal Exam Abdominal Exam: Present normal bowel sounds, tenderness (lower abdomen no rebound or guarding ) and soft Extremities Exam Extremity Exam: Present Normal Inspection and Full ROM; Not Present Tenderness Back Exam Back Exam: Present normal inspection, no vertebral tenderness and no CVA tenderness Neurological Exam Neurological Exam: Present Alert, Normal Mentation, Oriented X3 and CN II-XII Intact; Not Present Motor Sensory Deficit Skin Skin Exam: Present Normal color and Warm/dry Course Course Course Narrative: pt with abdominal pain has history of chrons patient given zofran and fently no relief repeat dose given labs and c (more content not included)... Normal [facility] Urinalysis dipstick panel Au to test strip (U)on 01-30-2021 Appearance (U) CLEAR Normal Clear [facility] Comment on above: Performed By: #### 1 2235-01, 50526-7 #### [facility] [address] Bilirubin Ql (U) Negative Normal Negative [facility] Comment on above: Performed By: #### 1 2235-01, 45533-1 #### [facility] [address] Color (U) YELLOW Normal Yellow [facility] Comment on above: Performed By: #### 1 2235-01, 24274-9 #### [facility] [address] Glucose Ql (U) Negative Normal Negative [facility] Comment on above: Performed By: #### 1 2235-01, 04067-4 #### [facility] [address] Ketones Auto test strip Ql (U) Negative Normal Negative [facility] Comment on above: Performed By: #### 1 2235-01, 89176-0 #### [facility] [address] Leukocyte esterase Auto test strip Ql (U) Negative Normal Negative [facility] Comment on above: Performed By: #### 1 2235-01, 69271-2 #### [facility] [address] Nitrate Ql (U) Negative Normal Negative [facility] Comment on above: Performed By: #### 1 2235-01, 67183-4 #### [facility] [address] pH (U) 6.0 [pH] Normal 5.0-8.5 [facility] Comment on above: Performed By: #### 1 5-8, 58798-1 #### [facility] [address] Protein Ql (U) Negative Normal Negative [facility] Comment on above: Performed By: #### 1 2234-8, 83434-9 #### [facility] [address] RBC Ql (U) MODERATE Abnormal Negative [facility] Comment on above: Performed By: #### 1 5-8, 00016-4 #### [facility] [address] SPECIFIC GRAVITY,URINE 1.010 Normal 1.005-1.030 [facility] Comment on above: Performed By: #### 1 5-8, 06830-6 #### [facility] [address] Urinalysis dipstick W Reflex Culture panel (U) Normal [facility] Comment on above: Result Comment: IF T HE DIPSTICK NITRITE IS POSITIVE AND/OR GREATER THAN 5 WBC'S ARE SEEN MICROSCOPICALLY, THEN A URINE CULTURE IS ORDERED AND REPORTED Performed By: #### 1 5-8, 00124-4 #### [facility] [address] Urobilinogen Ql (U) 0.2 Normal [facility] Comment on above: Performed By: #### 1 5-8, 50391-1 #### CL[facility] LAB[facility]ORY [address] Coding Summaryon 01-27-2021 Coding Summary [facility] HxrbvnuoHSp2eMt+PGhlY WQ+XW2LSAGwM11skGNmkS 7AM7nAMN2TDCTLICHQTO5 NNL5djQP2BQdxX1JvenZu BxlxbFJtLJ27YTt3ZPH4y FexGSbvhI9tpVYdI5s4Ga TyGW46sC63MCfnXLXjPuQ 3LjZpbjsgbWFy J1xkPcGnsZEpSen+PHRhY mxlIHdpZHRoPScxMDAlJy RfzJxyIQ6gJm6yBOTuHNJ vbGxhcHNlOiBj z7kfWRCaVTatVN0btTppU 8YhkHG4XVXns9a0Gj77sY I+VOSuWNU4jUjpUConb02 4NbZha2fdOEL1 eEHuFTdkRPV6L99em6B1B SUqAALmYOG6qQS6lM0ueI wnreczZ9UpgMNfShD4MLK 0aEBdfI6nhWzy bmhhaV9yQai+A52KWC7LH SCIUM4DTds0S7IfDkfxaP I+XD23DURaCR17zOPgsAY dn9sfwLm4UnPk OWAtPXV6qZwjNFigu8ZtK PWjZ27qxDHbg0U6KAUhtT vypGIqMgAosLS6nN0yXUx zxjenn2hzkavr Oikwu2spuk69nR06W64mP CzdRZIdKRX0FCDnVQKrpI shht9vrR4dMx4+CPuxs4n yx2zzfNm5QlGd WZYrpmIicWwbICO4m1XaS l88U2SlhUcwd3LpNrx9zz 58bAOmp7P4tFJ4TQbyDOI lqW3oKUvfHdX8 CITlChYvpX14fJVmTQnmP a8gzYdzrEhlWP5aQXMdos rfRNVxiD2fWVBxcHCwbGd qAW1qXAQxbbcb v149TfAqOKV8VEPagHNmH 0CflZ8mYmSqVOJaXQLdW0 ZczQGfZOlxS144HKbhZpF 5PBTrcuBtQ7Tx KKHdbJflJeU1b4A4Qk3Gs 6GwafzdEJF8VGsaHYH9Ng SxSwZoZvS9D6SsJho0RML xiKwhDW3xY8Hn OTHkemcwfyvqnQD1UPEtO NZusX21qJSjYYywPw8mo1 E3k083LBOjJCSezU11Jm9 udDogMTBwdCBU uP9tkalek0qukpnuIcZsK KUqJAi7NZb3UJBnpDadIn KkTRB7YhO9OYW2lISdsK4 uiHwuyfozbN0o Oyc+T74zbQ8iCWI5SCP0p zmkBANuimQhFW47ZV94J8 RyPjwvdGFibGU+PGRpdiB doLskPR9fTlIg q1zon5IvKKhvF7MuERYjB EriEtn9ORZeDMR0cPI5bQ 7cILZdLHnks5I8iLA2W2D axuPufg5sf1xi QAQnSJjxC71plDFze3S5Z ARvsOC8VZKnmNxiHePwiG 93Oyc+TZGqnAnjy7BgDgc gz0mex5fvuKx6 AnUcBOOthiMnoPbtOQE7h 1PkAl67V15vFPafFLChFC LoHAOgVHSrkBxslb0laE5 wIi8+PGNvbCB3 vFS8bT3fXAArIbU6JLuhX 475YgDqgKFbMwjmx8dwg5 kufIx3TvNhKFKcazSzfEq sIFZ2b7WyRw76 M81qIEggBPGgZYXcCZGnQ JOkdNkznb1xiS7nUs1+PC 1ck7mydi47zR36xTK+PHR lPJJ1qZhtEXpi OUAbxZ2kKDdfCfX7YUAsT nKptZ04pHDiCXdmXx7ztZ mjtGktTX7xTBIfeknws91 9SxXsl1tyBUQt iGQaYKepUQR4I67hw9W0K LXoIQNoLGJ3xRF0uP2xiX lnbjogbGVmdDsgdmVydGl uMFmoAZvkX587 IHRvcDsnPlBhdGllbnQgT bDdHHm7H1WkLjd4EDLijG pnTT3miSMxJNiyBm2lpFh jiBkbFI2wXMNo wlgtd343JtBid0qgKWSpr UGgMOfhJOX6Q57zd9L6BA MjHPQpBVZ7eBI7sJ9wtBr nbjogbGVmdDsg hpMvaFvzZAwpGVxlW684H HRvcDsnPkJpcnRoIERhdG X4UQ52ZS45jWFri5D0vFX 6R9FsYHCpocsc drzpiVB5NNBiAFAjbY44C b0rqHtlNl1aBUTdDQP7FF AysXKrU5NbzB7tHlTdQTA aQBYmI8VijSJm JRegS626GSfwJgK5DUGlf yMbA4UqFNAuvErkZkU6a9 B9Xo8YM5G9HL60EM14bVC mi5Z4dDB5X3Ls XNKazbitbpyfoRS2WUGsL HSimG35Hx3ioGbnEw1aQQ CfFFJ3PPAvyQHcM3BukN1 yOiAjMDAwMDAw H2IfuGXjKXugX114VSnmI nG2ESPggdOoP9UjRQFzjB hcFzP7q1J9Vs0JYYy2SX4 0EY42rFOun8L5 rBN9C3TsSIFczcsbnqeln PS3KCPsKGYfjE63Fw5rhA xsPa9hVOSxZEG0OGQffKU jS1RjmP4sYdTx PFXkEVNaK7BweZJbIMciY 832JHqqHaL6JMOidyJhB5 PnKFLbaOmeYjS3f5S0Xt8 NYTVjBM71DWU3 iQK8HQ84LT74R9ZrRbbgi GFibGU+PHRhYmxlIHdpZH RoPScxMDAlJyBzdHlsZT0 zMt1cPCVcRCQd sTproOOpTeFev6qmMHJwA WipJI6iaYxuB0ZaaZH6BU Njo6s0Jf02K03xZ0CdgKZ +HFHfaMX1cVB8 tE6pRtYvUrH1UZexC372G hRxnDErSzhqk4usa7hivJ f9FxD3TMZmafXjvShzFYD 8w0MnQe34L74i IHdpZHRoPSIxNSUiIHZhb Fgvdw3pqX3tWs0+PGNvbC I1yAO1dK8jVtKzYfB3XLw oV086AbCsaJLa Uxcls6daa6dcjDk9OzLeK KDvkqEteDufSON8i1UwHz 29H6UtvTgfs4YyAco7tw1 5gZMrx0U5nSG6 K9AkGSQijuwilBMmiXejQ X3pXLImxnbyUHWvqV1wLJ XpK9d7DwUqNvT4ODagQ4Y fnpZ3JZGepNNi CInjQIR2J49pj8S1GOJbS LCnPAD5tWR2vR2zoCkfap ogbGVmdDsgdmVydGljYWw pSOpnY547WCFo dZysMLEqxF3aSUXxsPIyd WorAT0lOYQtyridBeiUTf IRExqvPK4OJJQNBMaXGrM USDwvdGQ+PHRk JDG5aCrvJFssINFqlX4sH LQpN7j0LbJwCcA8RVnwH5 PsWJYimvjkWk27lE0iGyP rSmV9UApyF7Uy faM2HFRrtZVsDUitSPV8K 76gv4G2AESxZNSoBVT1bG R0iN1dgIhodtyaiLBobIs gdmVydGljYWwt EZvgD712LBVfaYsxYrGzH bFgRgL0Pwt5W3NjMpt4HV RzmLwvBU6qcGVoRErwUg8 pdMxerNfzGM5g WEWfmevxNQFolB9mSHJda HIytLovWI5bKZGodoiin7 44WxTtGDU6CXFnbNYdA7I vlM7vJcMsEWCn LFLgF9VqkISkWKoxK661U MwqNxO8CFNcuoOfE0BxXH TxcOuhJzF2c2G5Rr20SsB ZZWFyczwvdGQ+ ZVLoMDQ8bKeeDYjuCIWzp R7dJGQrV3c5DtRcLcA5XD ppO2MpYNUwxxkvOf13kA1 wDyLpKdM0TWyn M9VgqwP6HXRgsVKhSIfvS EU1N54mf4W3OAFmFERwZM F7nRT2dC7zgGnoyxonrAU mdDsgdmVydGlj BUzkJQslB114MYCvnMhoX kZFTUFMRTwvdGQ+PHRkIH L7kXnzDQnlGCLfbS6rMIA hV4w7OnInRfF6 KBwuR1EhOTNmvqlsUc35f A9oKnVzBoV3CDsxO7Cldr E2KLNuuWRkQOxuOFO0R23 nd0P5PBMcUECn EZQ3bWI1iC0bvNbujtzmm GVmdDsgdmVydGljYWwtYW tcZ367LEFniJomAt9LIV4 4QJ83P0RrFtpe dGFibGU+PHRhYmxlIHdpZ HRoPScxMDAlJyBzdHlsZT 2qFs9iXOZzQBRqrBrooZF aAjCsw9doEUAf TNbiGP4kzBwaD8TnoFJ0N NGwb5c2Ka28L22oA5PfpH A+TTKfyFS0pKR1bG3uPcS bQxH4PLjvZ153 ItOnuLKzZewmh6mzr9rnc Iq3LdAaLHIpivKeaTuvLJ N1a7HeUv60M57hKHpdIBT oPSIyMCUiIHZh nEjdys9ssE2uKp1+PGNvb ZA1xIA5qD0fTyEdPhJ1AO qqW345XnAsxFFrCtexE69 kT7EnxFX+PHRy Sun0WQRmrVnbYT4zjGNgK JcbVy9aQWR4VvMwFlWnGJ pkN0HqUSXfnkvrqgjxwOT 1HYYkXHCndD48 Xd4qrRedBx0bYVZcBYK7F PQstJYjQ9IikC6jCnRzPZ MhAOJhJ7ZzdRZaICgrZ95 6IIrkFgU2PQCf zqNeD5UeTJWudFkbPuR7k 4J4Hk6UtPujlCGbZG4eKj KlYYq5K7HzTtp4VNZziCx pJJ4qtUGcFPal Ej0tqNgahYjkRV4aDRHci ruav173SqJlh6bpWDMmiW RiIQmmFLY1S06ab5A8NFM aAJSwGEA8vII3 oH7crNwjcjceaROcyOsgh dPbuOkjUJlcKBzlK671AZ DwfRehJaVPCqm0X9UoVun 0OISqmOytHU8g oAWlVTtbDy9eoGcqkLpiO U1xQIQrtrssf113YwAsz6 ynGUDtcSPqSWpgPMQ5Z81 ip5W2YWThPRUf SCT7vZA0wO3ouDnpoendd GVmdDsgdmVydGljYWwtYW zjS097AGXlyPmcBe6YHrj 7S4TpAog3IQHy sOuxAF5hqPFpTNfvSj5kr VwmtLexUS4aGUTfkpjmi0 90NiKmc5xhIKWdeSFiHSy uCFZ2J41vw6W1 VWVtHCUrMEW0qED6eK5fx GlnbjogbGVmdDsgdmVydG kfQSoeVDzwY249BOEsvMm nPlBheWVyOjwv dGQ+FZ97nm05D2IuGkixG ca5JNTrNHY7gMG7gS3oDZ IpPWxfl2E5bYO7M6DxucK kaa8om2reFCKw ZTo (more content not included)... [facility] Coding Summary HTMLBase 64 QgsotiudXSy8oJp+PGhlY WQ+PI5JWKZfF13taSJxrS 3DJ5oBEI9ICWEIFKRLMK3 XGE1hhMR4FXphB0HdfiJq TarumQZcNN58QRv8WWF1q AcaAPszzI9twRDrA8z0Kl FsPT77jD57KGgxQTNkClU 3LjZpbjsgbWFy A4zvUlRsiUFiOnl+PHRhY mxlIHdpZHRoPScxMDAlJy DquKmaOI9bUh7nNIHdKZM vbGxhcHNlOiBj q6wpPMTkKPizVC2qeXpyM 9NhoAY9XYEec4k2Fb47jW I+WBEfNWA7nHanBYldr45 9UbXlh6tqHJJ3 pKDaXAiuVEA0G12fk7B3K NAiFVRkOOL0aUY9tF2tfQ pvypynJ5LcmNGhVyI2TJP 2vUWuhX7fjHzg zlvsbU8jQou+X29XPX9CX GJDSJ8UDqc9P6GdZnidtD I+RO66NGSuIN13gONdyVB cl9qhoAd3UbGv BWCjDKY9nDnwUVimz0SoB DIfR71fxAOuc9A0OCVytO rlkPSzNxKvhVK0qG1dIAr bmbvhr5nynzlm Juikt8khex47qU60C86qN ShxYTCpQBB0FOZeGXTuzR dlyw9qsJ4fJi2+ESnnx3g nr4touYg7WuYu VDYzqaTvoLuuHHX8b5AyA r30Q2LfaIsih9XmXnm1ug 39vORye2H4zUX3ZQoqAQR aqG5wCTtfIyI9 XGFqCwUapB50eKRiNFwxR c4bcYyiaLvdHV6kMCPlia omHSEzpU0mIXCgeJTjqUr fYG7cTMTtbnre o240SlMlYHB8VQVhbPLgS 4CtbZ7gZhXvDBPpFNZsV4 HvrZEmDPqdJ330UAusUxI 3UNHoujBtV1Nm SUAhqPrpRuE7z6E6Yk8Wt 2AwipxxNUI7DMomVQL5Tb DcJjNfApK7E2KfNlh0VQC diDpaVS0uR7Ak XWJywpmskcxaqQK2JCDxX DCfbS66iFFgGRmgSm5tg8 Z2v632ZXVgHDNeyA50Bj2 udDogMTBwdCBU wO8spplgo8ouqyexTmSbP WZhCFn5LWo8BZRalExpAr YnVLH3PeH1IWE8tBUvhQ4 yrJyigagfgV0i Oyc+E62ilP0wZBA7YFW6g wwgVHQforEzDS29UH37I7 RyPjwvdGFibGU+PGRpdiB apDoqIU3wCrHc c2upc7ApDVeoK4WmYQXtL WslGqn0IVToHTY7cYD0jF 9hYLIeSKzfg1G1oIK2P1W rbcBteh2hb9ft ONLkQKzvA65skVOkg9P8L HAttZV9PDWxxIdiZxMseH 93Oyc+OYWwxNxiv5PfLmr ij4yni1ajcSa6 TpKsFBQgplYmlYdoDTV8q 4BaGx41V97xIHvkTSXgKN OmFHFvLZRniLboso0crH8 wIi8+PGNvbCB3 oLP6mS9xWDDbCkT7KOedY 271FxPpvVNdGoyzz2xns1 hohEh2MkXmOBEmmhScgQj xMKM8n3RjOe90 X01gWEroVWUdKSRtUNEmS STsbZbwfm0kqZ1oCz0+PC 9mr9ofad97aA56tSX+PHR iEHS1aQisCJvq UQEitD3jEVaaFyO0FINjH hBkoY19cMElCUakFl9urL dxuGcfAC6tBWRwzipre43 5XhJwe1epKPPk pSUgFChoMNE0G74cy7G6J JEsRUYqUXR0uLP0aY9ynE lnbjogbGVmdDsgdmVydGl oDPtpSLtlT161 IHRvcDsnPlBhdGllbnQgT aEjZQp7D5UjAgg0QJLckM hcWP2qeEOaONojXw5wqNc rtAwbSK8zKZKe lzjgl607ExDth8arTRLcm WIkSIfcJCQ9I64su6K0NA OoOWXnRKZ3tZH6vL9glFu nbjogbGVmdDsg wsSrwNxtZUooOAypV495B HRvcDsnPkJpcnRoIERhdG A7BO30CJ62xLRjo8C2mLT 2E1MuKIXqfbux rvfrgMO9UDQfCFZvoS59V s3ssEkaJa8kDLGgIJM1KA RbkRHjZ8HhdM8zXtJrAEM tGLZuH6MtfJDb XZhgO581MEjkPbL7EFHzh pZlG4SbFYIhuImkRhR4c3 A2Bs8VU2Y3TJ80NA27hOV aw3X3bTC5W9Wz NGQsuyfrdgrnoGA2JLAzX KXxdB35Ab9yyEioEo2bCN JqSVP8CDZgxLTfC3QtdW3 yOiAjMDAwMDAw U8IobBAuFRyvZ546WMucA yR3UMDgdbEcL3EyLHRheC gfVwI3f5S1Gk5RGOb9DB0 8ZP03iIKqb2W4 fWN4Z9IoTSGyjboypdlgd IQ5MNOjXZKmmP60Nw7cqH vdIr8fTDVvKDY0ORJktXY oE9LskT7vTcUo XKJxIELbO9JieUEoADdbW 779GPghYrF4DHJiomPgX5 DoZMXlqBshLwF7w6N7Up4 PKWVmEV78NMM9 cZF9HL83PP52D1UxRdbwh GFibGU+PHRhYmxlIHdpZH RoPScxMDAlJyBzdHlsZT0 oJp2aNJFtNITt xAgygPGuDvSlf2iaPJWlH VzcGG7ylHdgU8XbiZU5LT Cnt5l9Sd01A42bY3WstTO +QIOtqAK4iJR0 zT5aCjAaXbK4PTzlV035T xUqsGMxNcilb6ngu9nurI v0YcN9PUEsdyAwxMecNEB 7m9EjFr11T91u IHdpZHRoPSIxNSUiIHZhb Lqtcr3hdY3nBe0+PGNvbC U5hWX9qR2wWuApDqB4SSa uC249QdIhfHHw Ockgm4uio8cvcCp9HsCsG KKcoeQscPxmFAA9q8YzLv 27K9VvkUwss6OkSeb9eh3 1jCWon7V2pTB6 Q0MmWLUpjvhiqEXokWtbL M8mRYSxiiooTSGocO2fWG KwR4v1PvLrOxF5TWjjB9C oiyL1QUIdgEDs ZQbwEUT2Q72ji5C9TNRlH RMdTIC8aXJ1sM4ndAaaad ogbGVmdDsgdmVydGljYWw dMGfwW879ZSSw dMmfNFRclH8qURKhyLZbg UpcNA2wGVAtucxeFeqCCe EZSjcsYE3LZXLDLGxAAyL USDwvdGQ+PHRk SYH7gUqcOBnoDOYrgI4vW VHrV1d3ElRbIfK8YFlhI8 TmYWZvssfyAn43iF5vSuS wPkN7ROesC9Tl poZ2VIRveZSaPZxeWMW0U 99xi5S0HMFtYWKtZUP7mO O9pI2psQwxjcfelSEunKl gdmVydGljYWwt TQufC670YTDxcWltZqGiB wMkOjC7Gbf9M5CcLfv0FM SxsJiuAF1qzWQnOKqrJv6 cvBpufMyhEN1q AHXcouxjDRHkoW1oBMEam MUuwDlnAL2mRYTsgutqj6 41FmJcFIN5COMmyHUpA1V wtR9uWvCfNQBg GTVqL5GinPLdHLioY450B QymRgO4FMZirqJgX4GvSE SohYebQtF7z4S4It83RoT ZZWFyczwvdGQ+ TWNcMFE1nHswXNwvGEIkb V9aDLTmM9s4NxFdFtX2JW yeC1TmRTLtammmZh72pQ5 rRcMjSrK0JKgd C3CkegV8EQDhvCEnPLpvK SY9V52oz7U9OICuBZAiYI Y4rOY3iM5rvQgofqrsxZR mdDsgdmVydGlj AYsuYKvrZ603RDCegGjeD kZFTUFMRTwvdGQ+PHRkIH J9cWqoSSzsNSPqkK9lPBC uA8k4YbCpVwO4 SYfyE7WtKTTbtapdAm98o Z1qJsUcPtO4VUdxJ6Szla N6FGTewRWsCWocBUW1V59 wt6Z2XBBnHYSx YJG6tII3aS0qrSbringuv GVmdDsgdmVydGljYWwtYW eqU246AOGfeAiqFxSjOWZ mNT3ckUvauLW+ VS02vz51S5KuUoajIac5L BEaLET1tCF8pJ0qJBJwOP kqn7L7oNX2W1LxwhZaye4 bq8ksLSSmHUxq S33jvSGps7E4LXRzoBY0H VFxeShrZzXenP86Bdm+PG BpsIktb3VuCiggr3zvc8z okLb1EnNkFWOd hoGslSgjEAE1c5AjGs02Z 29sIHdpZHRoPSIzMCUiIH QbbSnlsy0rjB0pXo9+PGN jzXE0sFF1lA2q JtTpBrG3RPcdF484SbGwt CShJbcaj1dmo6dvmKs3De CaVWHuadEllMcvBGW2x1D qFi84S0CnvDjs f3VhHfo9ax75sSMfw7I5g PE4U4PjRNDeebtacOXsgT bgFP5dYAXregfzVDDfqJ3 aXVXsJ6w0OcQj WeO8CSgzB4UncuY8TMTui GBoTGKxxBUJbD3iscofv2 xqvjzeHyLcKGFfHTp6OKe 0LWFsaWduOiBs KLI5TdD9IEB5zSSsiM1fz BqmztonpI5gToc+UGh5c2 itwDFvCY5gwGO3TU29UM8 2wIXlm6H3xAZ8 D4VoWSMhliowgpkxuEF4T NLaWZLyqW89Xc4frDurWb 7hUCApBPC4BBKoiIImT7A xhY9wVuXbTLIf KWEhI9QjeQOoWPhtR057F NngSaE2CYLudpTeI0DkFS GpyYclYsQ4b4Y2Zj6YCN9 3VC51IB80cQKr l7V3mLQ9Z9EbBCKbflvfu tpwvOY3FULvQWOosG25Lg 6xeKlfNg9xYNRsOAA6MAO xwNAoG5XitE8d UmPcCFRjFQPzS1PlbXTiE ElfC359OTmvNsW3CQUjdy TlK8UeFLXjnWmfYbG3j7M 3Bd7SNk95GX07 WB61nPVwl2B4aRD6N7EcH KXiwwibmuudsNB4BYAeHF FyfS28Ku7onHjcOy0uHMB iLMS9ODUxhRSw M4GfjR4zDmLoADSsFAJhO 6EivQOxQBqrG700VZfoQf T7TPWuroXmJ1CaZPLlzNj pNqR8j2P1Qy6N ZDbzfgk0I6CmUhgbpXS+P W55RQQbSL35nMLznKVxa3 uzqDs3CpGdTEYlVOS1xOv sIPyoq9SvVQUs Y29 (more content not included)... Normal [facility] .Auto Diff 01-16-2021 Auto [place] % 10 % Normal 1-12 [facility] Comment on above: Performed By: #### 2 [id number] #### [facility] (DEFAULT) [address] [place] [address] 71324 Baso Abs# 0.0 x10 Normal 0.0-0.2 [facility] Comment on above: Performed By: #### 2 [id number] #### [facility] (DEFAULT) [address] [place] [address] 64597 Basophils/100 WBC (Bld) 0.3 % Normal 0.2-2.0 [facility] Comment on above: Performed By: #### 2 [id number] #### [facility] (DEFAULT) [address] [place] [address] 20530 Eos Abs# 0.1 x10 Normal 0.0-0.4 [facility] Comment on above: Performed By: #### 2 [id number] #### [facility] (DEFAULT) [address] [place] [address] 67924 Eosinophils/100 WBC (Bld) 1.3 % Normal 0.9-4.0 [facility] Comment on above: Performed By: #### 2 [id number] #### [facility] (DEFAULT) [address] [place] [address] 63974 Lymph Abs# 2.4 x10 Normal 1.3-2.9 [facility] Comment on above: Performed By: #### 2 [id number] #### [facility] (DEFAULT) [address] [place] [address] 28960 Lymphocytes/100 WBC (Bld) 32 % Normal 14-48 [facility] Comment on above: Performed By: #### 2 [id number] #### [facility] (DEFAULT) [address] [place] [address] 57037 [place] Abs# 0.8 x10 Normal 0.0-0.8 [facility] Comment on above: Performed By: #### 2 [id number] #### [facility] (DEFAULT) [address] [place] [address] 73731 Neut Abs# 4.3 x10 Normal 1.5-9.2 [facility] Comment on above: Performed By: #### 2 [id number] #### [facility] (DEFAULT) [address] [place] [address] Neutrophils/100 WBC (Bld) 56 % Normal 44-88 [facility] Comment on above: Performed By: #### 2 [id number] #### [facility] (DEFAULT) [address] [place] [address] CBC w/ Auto Diffon 1 Erythrocyte distribution width (RBC) [Ratio] 12.7 % Normal 11.5-15.0 [facility] Comment on above: Performed By: #### 2 [id number] #### [facility] (DEFAULT) [address] [place] [address] Hematocrit (Bld) [Volume fraction] 41.1 % High 33.7-40.4 [facility] Comment on above: Performed By: #### 2 [id number] #### [facility] (DEFAULT) [address] [place] [address] Hemoglobin (Bld) [Mass/Vol] 13.6 g/dL Normal 11.3-15.9 [facility] Comment on above: Performed By: #### 2 [id number] #### [facility] (DEFAULT) [address] [place] [address] Instr WBC 7.7 x10 Invalid Interpretation Code [facility] Comment on above: Performed By: #### 2 [id number] #### [facility] (DEFAULT) [address] [place] [address] Man Diff? Auto Normal [facility] Comment on above: Performed By: #### 2 [id number] #### [facility] (DEFAULT) [address] [place] [address] 19359 MCH (RBC) [Entitic mass] 30 pg Normal 24-34 [facility] Comment on above: Performed By: #### 2 [id number] #### [facility] (DEFAULT) [address] [place] [address] 46518 MCHC (RBC) [Mass/Vol] 33 g/dL Normal 26-37 [facility] Comment on above: Performed By: #### 2 [id number] #### [facility] (DEFAULT) [address] [place] [address] 16475 MCV (RBC) [Entitic vol] 91 fL Normal 81-100 [facility] Comment on above: Performed By: #### 2 [id number] #### [facility] (DEFAULT) [address] [place] [address] 76789 Platelet 288 x10 Normal 138-427 [facility] Comment on above: Performed By: #### 2 [id number] #### [facility] (DEFAULT) [address] [place] [address] 00626 Platelet mean volume (Bld) [Entitic vol] 9.4 fL Normal 6.3-10.2 [facility] Comment on above: Performed By: #### 2 [id number] #### [facility] (DEFAULT) [address] [place] [address] 32309 RBC 4.53 x10 Normal 3.70-5.30 [facility] Comment on above: Performed By: #### 2 [id number] #### [facility] (DEFAULT) [address] [place] [address] 45716 WBC 7.7 x10 Normal 3.5-10.5 [facility] Comment on above: Performed By: #### 2 [id number] #### [facility] (DEFAULT) [address] [place] [address] 82949 CMP Standardon 01-16-2021 eGFR Non AA >60 Invalid Interpretation Code [facility] Comment on above: Performed By: #### 2 [id number], [id number], [id number], 1221915, [id number], [id number] ####[facility] (DEFAULT)[address] [place] [address] 81692 eGFR AA >60 Invalid Interpretation Code [facility] Comment on above: Result Comment: [employer] chris Kidney disease could be indicated at eGFRs of less than 60 ml/min/1.73m2. Kidney Failure is indicated at less than 15 ml/min/1.73m2 Performed By: #### 2 [id number], [id number], [id number], 7687901, [id number], [id number] ####[facility] (DEFAULT)[address] [place] [address] 53744 Albumin [Mass/Vol] 3.9 g/dL Normal 3.5-5.0 [facility] Comment on above: Performed By: #### 2 [id number], [id number], [id number], 7783725, 3873500672, [id number] ####[facility] (DEFAULT)[address] [place] [address] 14234 Albumin/Globulin [Mass ratio] 1.3 {ratio} Low 1.4-2.6 [facility] Comment on above: Performed By: #### 2 [id number], [id number], 5980936182, 1094705, 7897736230, 8058511695 ####[facility] (DEFAULT)[address] [place] [address] 80257 Alk Phos 55 IU/L Normal 32-91 [facility] Comment on above: Performed By: #### 2 [id number], [id number], 9067390986, 8698062, 4206511173, [id number] ####[facility] (DEFAULT)[address] [place] [address] 43057 ALT [Catalytic activity/Vol] 40.0 U/L Normal 14.0-54.0 [facility] Comment on above: Performed By: #### 2 [id number], [id number], 6169708378, 1267330, 3215627440, [id number] ####[facility] (DEFAULT)[address] [place] [address] 78732 Anion gap [Moles/Vol] 18.0 mmol/L Normal 5.0-19.0 [facility] Comment on above: Performed By: #### 2 [id number], [id number], 5576813720, 3509065, 8143481145, 9925617128 ####[facility] (DEFAULT)[address] [place] [address] 40062 AST [Catalytic activity/Vol] 21 U/L Normal 15-41 [facility] Comment on above: Performed By: #### 2 [id number], 1151812626, 3924756228, 2386640, 6004689576, 7482590012 ####[facility] (DEFAULT)[address] [place] [address] 27428 Bili Total 0.7 mg/dL Normal 0.3-1.2 [facility] Comment on above: Performed By: #### 2 [id number], 9298468025, 6162944680, 5067804, 6484067516, 6394107957 ####[facility] (DEFAULT)[address] [place] [address] 63152 Calcium [Mass/Vol] 8.7 mg/dL Low 8.9-10.3 [facility] Comment on above: Performed By: #### 2 [id number], 7470181431, 2204637224, 0721979, 2957260972, 8126276947 ####[facility] (DEFAULT)[address] [place] [address] 08389 Chloride [Moles/Vol] 99 mmol/L Low 101-111 [facility] Comment on above: Performed By: #### 2 [id number], 9245361057, 5533161355, 0687468, 7042342340, 6791276993 ####[facility] (DEFAULT)[address] [place] [address] 10794 CO2 [Moles/Vol] 22 mmol/L Normal 21-32 [facility] Comment on above: Performed By: #### 2 [id number], 4741017653, 4106200657, 5729497, 4505622270, 1692711356 ####[facility] (DEFAULT)[address] [place] [address] 65452 Creatinine [Mass/Vol] 0.53 mg/dL Low 0.60-1.30 [facility] Comment on above: Performed By: #### 2 [id number], 0234547240, 5280132763, 2696927, 7659343763, 1685515389 ####[facility] (DEFAULT)[address] [place] [address] 29590 Globulin (S) [Mass/Vol] 2.9 g/dL Normal 1.5-4.3 [facility] Comment on above: Performed By: #### 2 [id number], 8276864863, 9381089629, 1345473, 2332224204, 1701210289 ####[facility] (DEFAULT)[address] [place] [address] 92587 Glucose [Mass/Vol] 123.0 mg/dL High 74.0-118.0 [facility] Comment on above: Performed By: #### 2 [id number], 6956711923, 3508658813, 0866182, 4361209941, 4630528530 ####[facility] (DEFAULT)[address] [place] [address] 73792 Osmolality 270 mOsm/L Invalid Interpretation Code [facility] Comment on above: Performed By: #### 2 [id number], 2557535863, 8790258981, 1346049, 2904375966, 3821882358 ####[facility] (DEFAULT)[address] [place] [address] 67407 Potassium [Moles/Vol] 3.5 mmol/L Low 3.6-5.1 [facility] Comment on above: Performed By: #### 2 [id number], 7452581850, 3592301900, 0873561, 5225079985, 6118097323 ####[facility] (DEFAULT)[address] [place] [address] 62270 Protein [Mass/Vol] 6.8 g/dL Normal 6.5-8.1 [facility] Comment on above: Performed By: #### 2 [id number], 8621447923, 8443684972, 8344319, 6620041657, 9490114618 ####[facility] (DEFAULT)[address] [place] [address] 82756 Sodium [Moles/Vol] 135.0 mmol/L Low 136.0-144.0 [facility] Comment on above: Performed By: #### 2 [id number], 2703928451, 3829111933, 5992333, 0915043643, 5589233311 ####[facility] (DEFAULT)[address] [place] [address] 00296 Urea nitrogen [Mass/Vol] 10 mg/dL Normal 8-26 [facility] Comment on above: Performed By: #### 2 [id number], 4802421649, 8549723028, 0657599, 5018130088, 3020143180 ####[facility] (DEFAULT)[address] [place] [address] Urea nitrogen/Creatinine [Mass ratio] 19.0 mg/mg High 4.6-16.2 [facility] Comment on above: Performed By: #### 2 [id number], 8626905780, 0509342912, 0752300, 5503473955, 9588585176 ####[facility] (DEFAULT)[address] [place] [address] 36380 ED Clinical Summaryon 2020 ED Clinical Summary [facility] - Emergency Department [address] [place] [address] 19208 ED Clinical Summary PERSON INFORMATION Name: NICKI OVIEDO Age: 45 Years Sex: FEMALE : 1975 MRN: Acct#: Visit Reason: Abdominal pain; Vomiting; Abdominal pain; ABD PAIN, VOMITING Arrival: 01/15/2021 23:33:45 Discharge: 01/16/2021 03:40:00 LOS: 000 04:07 Check In: 01/15/2021 23:33:45 Checkout:01/16/2021 03:40:00 Address: [address] [place] [address] PCP: Duke Velazquez PROVIDER INFORMATION Provider Role Assigned Unassigned 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 01/15/2021 23:55:09 Jorge A Paulino DO ED Provider 01/16/2021 00:45:30 VITALS INFORMATION Vital Sign Triage Latest Temperature Tympanic Temperature Temporal Artery Pulse Rate 99 bpm 79 bpm O2 Sat 99 % 99 % Respiratory Rate 18 br/min 18 br/min Blood Pressure /85 mmHg /85 mmHg MEDICAL INFORMATION Medications Given: Medication Dose Route Sodium Chloride 0.9% intravenous solution 1,000 mL (Sodium Chloride 0.9 % intravenous solution 1000 ml 1,000 mL) 1000 mL Initial Volume 999 mL/hr IV Left Antecubital Fossa ondansetron (Zofran) 4 mg IV Push HYDROmorphone (Dilaudid) 0.5 mg IV Push metoclopramide (Reglan) 10 mg IV Piggyback diphenhydrAMINE (Benadryl) 25 mg IV Push HYDROmorphone (Dilaudid) 1 mg IV Push ondansetron (Zofran) 4 mg IV Push Allergy Information: NSAIDs; Contrast Dye; Compazine; Phenergan; Toradol PHYSICIAN DOCUMENTATION DISCHARGE INFORMATION: Discharge Disposition: Home Discharge Location: Home PATIENT EDUCATION INFORMATION Instructions: Abdominal Pain, Adult Follow-Up: With: Address: When: Duke Velazquez [address] [place], [place] [address] [place] [address] Business (1) Within 3 to 5 days Comments: home Percocet refill --just enough to allow you to return home/[place] Zofran for nausea See your physician at home You are welcomed to return anytime. Iris PAULINO< BIENVENIDO VARGAS< H B [facility] DIAGNOSIS: Abdominal pain; Chronic abdominal pain Patient Understands: Yes - Patient/family/caregi debo verbalizes understanding of instructions given Comment: [facility] ED Note - Physicianon 2020 ED Note - Physician Patient: NICKI OVIEDO Age: 45 years Sex: FEMALE : 1975 Associated Diagnoses: Abdominal pain; Chronic abdominal pain Author: Jorge A Paulino DO Basic Information Time seen: Date & time 01/16/2021 00:15:00. History source: Patient. Arrival mode: Private vehicle. History limitation: None. History of Present Illness The patient presents with This patient presents to the emergency room for evaluation of abdominal pain, which started today, she ran out of her Percocets, then she states that she began to get nauseated and feel badly and a couple episodes of vomiting lately, which she has been able to take she has had some diarrhea, she is also had food down since that time. She states she has Crohn's disease has had it for a number years, no previous surgeries, the discomfort is typical for her exacerbations, where waxes and wanes. She has been taking her medications. She is visiting from [place], she will be going back home in a couple of days. She ran out of her Percocet today she states. She states she would like some Benadryl Reglan and pain medication for this, she is never had an obstruction. Social history: Non-smoker, no alcohol use, does not require work excuse, she is here with friends. Surgical history: Gallbladder, appendix, right ovary, left carpal tunnel. Review of systems otherwise, no fever or chills, no headaches, no change in vision hearing or speech, no cough congestion shortness of breath or difficulty breathing, the discomfort her abdomen comes and goes is typical of what she is experienced in the past. She states she just needs some fluids and some meds and she will be okay. On exam she is pleasant alert very well mannered neck is easily supple, head is normocephalic, pupils equal round reactive 3 mm, no anterior posterior supraclavicular nodes, lungs are clear, there is no expiratory wheeze or rales or paradoxical chest motion, her heart rate and rhythm is regular murmur, she has good dorsal and dorsalis pedis, and radial pulses, there is no peripheral edema, her abdomen is soft, there is vague discomfort is both very little discomfort really to palpate she just states the discomfort comes and goes. X-rays reviewed do not reveal an obstructive pattern, per the emergency room department reading. This was later verified by the radiology department. After pain medications were administered the patient began to feel better. Her labs are satisfactory, her arrangements were made for her departure. . Health Status Allergies: Allergic Reactions (Selected) Unknown Compazine- No reactions were documented. Contrast Dye- No reactions were documented. NSAIDs- No reactions were documented. Phenergan- No reactions were documented. Toradol- No reactions were documented. . Medications: (Selected) Inpatient Medications Ordered Sodium Chloride 0.9 % intravenous solution 1000 ml 1,000 mL: 999 mL/hr, IV Zofran: 4 mg = 2 mL, IV Push, Once Prescriptions Prescribed Acidophilus Extra Strength oral capsule: 1 cap(s), PO, Daily, 14 cap(s), 0 Refill(s) Bentyl 20 mg oral tablet: 20 mg = 1 tab(s), PO, QID, for 5 day(s), 20 tab(s), 0 Refill(s) Percocet 5 mg-325 mg oral tablet: 1 tab(s), PO, BID, for 3 day(s), As needed for pain, PRN: as needed for pain, 6 tab(s), 0 Refill(s) Documented Medications Documented Lexapro 10 mg oral tablet: 10 mg = 1 tab(s), PO, Daily, 0 Refill(s) Percocet 10 mg-325 mg oral tablet: 1 tab(s), PO, q6hr (int), 0 Refill(s) Zanaflex 4 mg oral tablet: 8 mg = 2 tab(s), PO, TID, 0 Refill(s) lisinopril 10 mg oral tablet: 10 mg = 1 tab(s), PO, Daily, 0 Refill(s) mesalamine 800 mg oral delayed release tablet: 1 tab, PO, TID, 252 tab(s), 0 Refill(s) traZODone 150 mg oral tablet: 150 mg = 1 tab(s), PO, HS, 0 Refill(s) . Past Medical/ Family/ Social History Medical history: No active or resolved past medical history items have been selected or recorded. , Crohn's, no sx, from [place], out of her chronic Percocet. Surgical history: No active procedure history items have been selected or recorded. , right ov, appy, gb, and left carpal tunnel. Family history: No family history items have been selected or recorded. . Social history: Social & Psychosocial Habits Alcohol 10/24/2020 Alcohol Use: Never Substance Abuse 10/24/2020 Substance use: Never Tobacco 10/09/2020 Smoking tobacco use: Never (less than 100 in l Electronic Cigarette/Vaping 10/09/2020 Electronic Cigarette Use: Never . Problem list: Active Problems (1) Abdominal pain . Medical Decision Making Orders Launch Orders Pharmacy: Dilaudid (Order): 0.5 mg, IV Push, Once, Launch Orders Pharmacy: Dilaudid (Order): 1 mg, IV Push, Once, Launch Orders Laboratory: Lactic Acid (Order): Blood, Stat collect, 01/16/2021 2:04 EDT, Lab Collect, Launch Orders Radiology: XR Abdomen 2 Views (Order): 01/16/2021 2:22 EDT Stat, abd pain, Allow Modification Per Radiologi (more content not included)... Normal [facility] ED Patient Summaryon 021 ED Patient Summary [facility] - Emergency Department [address] [place] [address] PATIENT DISCHARGE INSTRUCTIONS Patient Information Name: NICKI OVIEDO Age: 45 Years Date of : 1975 Reason For Visit: Abdominal pain; Vomiting; Abdominal pain; ABD PAIN, VOMITING Arrival Time: 01/15/2021 23:33:45 Primary Care Physician: Duke Velazquez Attending Physician: Jorge A Paulino DO Comment: Visit Diagnosis: Diagnoses This Visit Abdominal pain (R10.9) Abdominal pain ([id number]) Abdominal pain ([id number]) Chronic abdominal pain (R10.9) Vomiting ([id number]) Prescription Information: If you have been given a prescription for narcotics, seek immediate medical attention if you have any difficulty breathing or any sudden status changes such as confusion and sleepiness. If you or anyone you know is experiencing suicidal thoughts, mental health, alcohol and/or drug addiction problems; contact the [facility] 08/01 Crisis Hotline -Text 5BNEY hx [phone]. If you received any narcotics, sedation, or any other medication that causes drowsiness for the next 24 hours, unless otherwise directed: ? Do not drive a car. ? Do not operate machinery such as power tools, lawn mowers, drills, sewing machines, or stoves ? Avoid alcoholic beverages and drugs for allergies, nerves, or sleep ? Do not make important personal or business decisions or sign any legal documents With: Address: [place]: Duke Velazquez [facility] [place] [address] Business (1) Within 3 to 5 days Comments: home Percocet refill --just enough to allow you to return home/[place] Zofran for nausea See your physician at home You are welcomed to return anytime. Iris PAULINO< BIENVENIDO VARGAS< H B Carol Medication Information: The exam and treatment you received today in the [facility] Emergency Department were for an urgent problem and are not intended as complete care. It is important for you to follow up with a doctor, nurse practitioner, or physician?s seismic survey assistant for ongoing care. If your symptoms become worse or you do not improve as expected and you are unable to reach your usual health care provider, you should return to the Emergency Department, we are available 24 hours a day. For those patients who have received Radiology results, the interpretation of your X-ray as given to you by our Emergency Department physician is only a preliminary report. The Radiologist will review your films and if there is a change in the diagnosis you will be notified by phone. Please make sure you have provided a working phone number so we can reach you if necessary. In the event that you had a lab culture while you were a patient in the Emergency Department, you will be notified by phone if there is a need to change your antibiotic. Please make sure you have provided a working phone number so we can reach you if necessary. [facility] Emergency Department has provided you with a complete list of medications post discharge. Please inform your stroke coordinator/provider of your visit and for further instruction on these medications. Any specific questions regarding your chronic medications and dosages should be discussed with your primary care physician(s) and/or pharmacist. New Medications Printed Prescriptions ondansetron (Zofran 4 mg oral tablet) 1 tab(s) Oral every 8 hours as needed nausea/vomiting. Refills: 0. Medications That Were Updated - Follow Below Instructions Printed Prescriptions Updated: acetaminophen-oxycodo ne (Percocet 5 mg-325 mg oral tablet) 1 tab(s) Oral 2 times a day as needed as needed for pain for 3 Days. As needed for pain. Refills: 0. Other Medications Updated: acetaminophen-oxycodo ne (Percocet 10 mg-325 mg oral tablet) 1 tab(s) Oral every 6 hours. Medications to Continue That Have Not Changed Other Medications dicyclomine (Bentyl 20 mg oral tablet) 1 tab(s) Oral 4 times a day for 5 Days. Refills: 0. escitalopram (Lexapro 10 mg oral tablet) 1 tab(s) Oral every day. lactobacillus acidophilus (Acidophilus Extra Strength oral capsule) 1 cap(s) Oral every day. Refills: 0. lisinopril (lisinopril 10 mg oral tablet) 1 tab(s) Oral every day. mesalamine (mesalamine 800 mg oral delayed release tablet) 1 tab Oral 3 times a day. tiZANidine (Zanaflex 4 mg oral tablet) 2 tab(s) Oral 3 times a day. traZODone (traZODone 150 mg oral tablet) 1 tab(s) Oral At bedtime. Visit Information Allergies: Substance Reaction Symptoms Type Comments Compazine Drug NSAIDs Drug Phenergan Drug Toradol Drug Contrast Dye Other Vital Signs: Vitals and Measurements this Visit (last charted value for your 01/15/2021 visit) Vital Signs This Visit Temperature Oral: 36.7 DegC Peripheral Pulse Rate: 79 bpm Respiratory Rate: 18 br/min (more content not included)... Normal [facility] Extra Greenon 01-16-2021 Tube Collected Yes Invalid Interpretation Code [facility] Comment on above: Performed By: #### 2 [id number], [id number], [id number], [id number], [id number], [id number] ####[facility] (DEFAULT)[address] [place] [address] 41293 Extra Greyon 01-16-2021 Tube Collected Yes Invalid Interpretation Code [facility] Comment on above: Performed By: #### 2 [id number], [id number], [id number], [id number], [id number], [id number] ####[facility] (DEFAULT)[address] [place] [address] 77139 Lactic Acidon 01-16-2021 Lactic Acid 12.9 mg/dL Normal 4.5-19.8 [facility] Comment on above: Result Comment: Was drawn as extra fallon tube and run immediately offline. DLW Performed By: #### 2 [id number] #### [facility] (DEFAULT) [address] [place] [address] 44308 Lipaseon 01-16-2021 Lipase Level 32.0 IU/L Normal 22.0-51.0 [facility] Comment on above: Performed By: #### 2 [id number], [id number], [id number], [id number], [id number], [id number] ####[facility] (DEFAULT)[address] [place] [address] 72497 Test Urine 1on U Preg Negative [facility] Comment on above: Performed By: #### 3 [id number] ####[facility] (DEFAULT)[address] [place] [address] 44645 U Preg Internal Control Pass [facility] Comment on above: Performed By: #### 3 [id number] ####[facility] (DEFAULT)[address] [place] [address] 58063 UA Enipp1dk 01-16-2021 UA Amorph. 1+ Normal [facility] Comment on above: Order Comment: Urina lysis Microscopic order added on by Discern Expert Rules system. Performed By: #### 1 [id number], [id number] ####[facility] (DEFAULT)[address] [place] [address] 79734 UA Bacteria Rare [facility] Comment on above: Order Comment: Urina lysis Microscopic order added on by Whereoscope Expert Rules system. Performed By: #### 1 [id number], [id number] ####[facility] (DEFAULT)[address] [place] [address] 92840 UA CA Ox Crystal Rare [facility] Comment on above: Order Comment: Urina lysis Microscopic order added on by Where[employer] Expert Rules system. Performed By: #### 1 [id number], [id number] ####[facility] (DEFAULT)[address] [place] [address] 00151 UA Mucous Trace [facility] Comment on above: Order Comment: Urina lysis Microscopic order added on by Where[employer] Expert Rules system. Performed By: #### 1 [id number], [id number] ####[facility] (DEFAULT)[address] [place] [address] 03283 UA RBC 3-5 Normal [facility] Comment on above: Order Comment: Urina lysis Microscopic order added on by Where[employer] Expert Rules system. Performed By: #### 1 [id number], [id number] ####[facility] (DEFAULT)[address] [place] [address] 78259 UA Squam Epi Moderate Normal [facility] Comment on above: Order Comment: Urina lysis Microscopic order added on by Where[employer] Expert Rules system. Performed By: #### 1 [id number], [id number] ####[facility] (DEFAULT)[address] [place] [address] UA WBC 0-2 [facility] Comment on above: Order Comment: Urina lysis Microscopic order added on by [employer] Expert Rules system. Performed By: #### 1 [id number], [id number] ####[facility] (DEFAULT)[address] [place] [address] UA w Culture if Ind Standard on 01-16-2021 Breakpoint UA [facility] Comment on above: Performed By: #### 1 [id number], [id number] ####[facility] (DEFAULT)[address] [place] [address] Color (U) Yellow [facility] Comment on above: Performed By: #### 1 [id number], [id number] ####[facility] (DEFAULT)[address] [place] [address] Culture? Not Indicated Invalid Interpretation Code [facility] Comment on above: Result Comment: Resu lt created by rule GL_MAGR_ADD_UA_CULT Result created by rule GL_MAGR_ADD_UA_CULT Result created by rule GL_MAGR_ADD_UA_CULT1 Performed By: #### 1 [id number], [id number] ####[facility] (DEFAULT)[address] [place] [address] Glucose (U) [Mass/Vol] Negative [facility] Comment on above: Performed By: #### 1 [id number], [id number] ####[facility] (DEFAULT)[address] [place] [address] Ketones Ql (U) Negative [facility] Comment on above: Performed By: #### 1 [id number], [id number] ####[facility] (DEFAULT)[address] [place] [address] Micro? Indicated Invalid Interpretation Code [facility] Comment on above: Result Comment: Resu lt created by rule GL_MAGR_ADD_UA_MICRO Performed By: #### 1 [id number], [id number] ####[facility] (DEFAULT)[address] [place] [address] 36576 UA Bilirubin Negative Normal [facility] Comment on above: Performed By: #### 1 [id number], [id number] ####[facility] (DEFAULT)[address] [place] [address] 05389 UA Blood TRACE Abnormal NEGATIVE [facility] Comment on above: Performed By: #### 1 [id number], [id number] ####[facility] (DEFAULT)[address] [place] [address] 34778 UA Clarity SL CLOUDY Abnormal CLEAR [facility] Comment on above: Performed By: #### 1 [id number], [id number] ####[facility] (DEFAULT)[address] [place] [address] 94456 UA Leuk Est Negative Normal NEGATIVE [facility] Comment on above: Performed By: #### 1 [id number], [id number] ####[facility] (DEFAULT)[address] [place] [address] 65882 UA Nitrite Negative Normal NEGATIVE [facility] Comment on above: Performed By: #### 1 [id number], [id number] ####[facility] (DEFAULT)[address] [place] [address] 30349 UA pH 5.5 Normal 5-8 [facility] Comment on above: Performed By: #### 1 [id number], [id number] ####[facility] (DEFAULT)[address] [place] [address] 61261 UA Protein Negative Normal NEGATIVE [facility] Comment on above: Performed By: #### 1 [id number], [id number] ####[facility] (DEFAULT)[address] [place] [address] 47086 UA Spec Grav 1.015 Normal 1.001-1.035 [facility] Comment on above: Performed By: #### 1 [id number], [id number] ####[facility] (DEFAULT)[address] [place] [address] 92238 UA Urobilinogen 0.2 mg/dL Normal 0.2-1.0 [facility] Comment on above: Performed By: #### 1 [id number], [id number] ####[facility] (DEFAULT)[address] [place] [address] Urine Source Clean Catch [facility] Comment on above: Performed By: #### 1 [id number], [id number] ####[facility] (DEFAULT)[address] [place] [address] XR Abdomen 2 Viewson 021 XR Abdomen 2 Views XR Abdomen 2 Views 01/16/2021 3:07 AM EDT INDICATION: abd pain COMPARISON: None. TECHNIQUE: Multiple views of the abdomen were obtained. FINDINGS: Cholecystectomy clips noted in the right upper quadrant. No visible free air. The small intestinal gas pattern is within normal limits. No pathological calcification is identified. No acute abnormalities of the osseous structures. IMPRESSION: No acute abnormalities. Final Dictated by: Joshua Esquivel Dictated DT/TM: 01/16/21 4:57 Signed (Electronic Signature): Joshua Esquivel 01/16/21 4:59 am Technologist: [facility] COMPLETE BLOOD COUNT W/DIFFo n 11-04-2020 BASOPHIL # 0.0 10'3/uL Low 0.1-0.2 [facility] Comment on above: Performed By: #### C BCD #### [facility] CLIA # [id number] [address] [place] [address] Basophils/100 WBC (Bld) 0.4 % Normal 0.0-1.7 F [facility] Comment on above: Performed By: #### C BCD #### [facility] CLIA # [id number] [address] [place] [address] EOSINOPHIL # 0.1 10'3/uL Normal 0.0-0.4 [facility] Comment on above: Performed By: #### C BCD #### [facility] CLIA # [id number] [address] [place] [address] Eosinophils/100 WBC (Bld) 1.7 % Normal 0.0-6.4 [facility] Comment on above: Performed By: #### C BCD #### [facility] CLIA # [id number] [address] [place] [address] Erythrocyte distribution width (RBC) [Ratio] 12.3 % Normal 12.2-15.8 [facility] Comment on above: Performed By: #### C BCD #### [facility] CLIA # [id number] [address] [place] [address] Hematocrit (Bld) [Volume fraction] 37.5 % Normal 34.6-44.1 [facility] Comment on above: Performed By: #### C BCD #### [facility] CLIA # [id number] [address] [place] [address] Hemoglobin (Bld) [Mass/Vol] 12.7 g/dL Normal 11.7-14.9 [facility] Comment on above: Performed By: #### C BCD #### [facility] CLIA # [id number] [address] [place] [address] LYMPHOCYTE # 2.2 10'3/uL Normal 0.5-3.5 [facility] Comment on above: Performed By: #### C BCD #### [facility] CLIA # [id number] [address] [place] [address] Lymphocytes/100 WBC (Bld) 32.5 % Normal 17.4-45.9 [facility] Comment on above: Performed By: #### C BCD #### [facility] CLIA # [id number] [address] [place] [address] MCH (RBC) [Entitic mass] 30.8 pg Normal 27.8-33.2 [facility] Comment on above: Performed By: #### C BCD #### [facility] CLIA # [id number] [address] [place] [address] MCV (RBC) [Entitic vol] 91.0 fL Normal 83.0-97.4 F [facility] Comment on above: Performed By: #### C BCD #### [facility] CLIA # [id number] [address] [facility] [place] [address] MEAN CORPUSCULAR HGB CONC 33.9 g/dL Normal 32.7-34.8 [facility] Comment on above: Performed By: #### C BCD #### [facility] CLIA # [id number] [address] [place] [address] MONOCYTE # 0.8 10'3/uL Normal 0.2-0.8 [facility] Comment on above: Performed By: #### C BCD #### [facility] CLIA # [id number] [address] [facility] [place] [address] Monocytes/100 WBC (Bld) 10.9 % Normal 4.4-12.0 [facility] Comment on above: Performed By: #### C BCD #### [facility] CLIA # [id number] [address] [facility] [place] [address] NEUTROPHIL # 3.7 10'3/uL Normal 1.5-5.6 [facility] Comment on above: Performed By: #### C BCD #### [facility] CLIA # [id number] [address] [place] [address] Neutrophils/100 WBC (Bld) 54.5 % Normal 41.2-72.1 [facility] Comment on above: Performed By: #### C BCD #### [facility] CLIA # [id number] [address] [place] [address] PLATELET COUNT 253 10'3/uL Normal 122-359 [facility] Comment on above: Performed By: #### C BCD #### [facility] CLIA # [id number] [address] [place] [address] Platelet mean volume (Bld) [Entitic vol] 9.2 fL Normal 7.6-10.6 [facility] Comment on above: Performed By: #### C BCD #### [facility] CLIA # [id number] [address] [place] [address] RED BLOOD COUNT 4.12 10'6/uL Normal 3.85-4.88 [facility] Comment on above: Performed By: #### C BCD #### [facility] CLIA # [id number] [address] [place] [address] WHITE BLOOD COUNT 6.9 10'3/uL Normal 3.2-9.3 [facility] Comment on above: Performed By: #### C BCD #### [facility] CLIA # [id number] [address] [place] [address] COMPREHENSIVE METABOLIC PROF on 11-04-2020 Albumin [Mass/Vol] 3.8 g/dL Normal 3.5-5.2 [facility] Comment on above: Performed By: #### L IP, CM #### [facility] CLIA # [id number] [address] [place] [address] ALP [Catalytic activity/Vol] 61 U/L Normal 40-150 [facility] Comment on above: Performed By: #### L IP, CM #### [facility] CLIA # [id number] [address] [place] [address] ALT [Catalytic activity/Vol] 44 U/L Normal 0-55 [facility] Comment on above: Performed By: #### L IP, CM #### [facility] CLIA # [id number] [address] [place] [address] Anion gap [Moles/Vol] 12 mmol/L Normal 5-13 [facility] Comment on above: Performed By: #### L IP, CM #### [facility] CLIA # [id number] [address] [place] [address] AST [Catalytic activity/Vol] 26 U/L Normal 5-34 [facility] Comment on above: Performed By: #### L IP, CM #### [facility] CLIA # [id number] [address] [place] [address] Bilirubin [Mass/Vol] 0.6 mg/dL Normal 0.0-1.0 [facility] Comment on above: Performed By: #### L IP, CM #### [facility] CLIA # [id number] [address] [place] [address] Calcium [Mass/Vol] 9.2 mg/dL Normal 8.4-10.2 [facility] Comment on above: Performed By: #### L IP, CM #### [facility] CLIA # [id number] [address] [place] [address] Chloride [Moles/Vol] 100 mmol/L Normal 98-107 [facility] Comment on above: Performed By: #### L IP, CM #### [facility] CLIA # [id number] [address] [place] [address] CO2 [Moles/Vol] 25 mmol/L Normal 22-29 [facility] Comment on above: Performed By: #### L IP, CM #### [facility] CLIA # [id number] [address] [place] [address] Creatinine [Mass/Vol] 0.95 mg/dL Normal 0.57-1.11 [facility] Comment on above: Performed By: #### L IP, CM #### [facility] CLIA # [id number] [address] [place] [address] GFR > 60 Normal ml/min/1.73m 2 [facility] Comment on above: Result Comment: GFR values >60 are not clinically significant. Performed By: #### L IP, CM #### [facility] CLIA # [id number] [address] [place] [address] Glucose [Mass/Vol] 148 mg/dL High 70-99 [facility] Comment on above: Performed By: #### L IP, CM #### [facility] CLIA # [id number] [address] [place] [address] Potassium [Moles/Vol] 4.2 mmol/L Normal 3.5-5.1 [facility] Comment on above: Performed By: #### L IP, CM #### [facility] CLIA # [id number] [address] [place] [address] Protein [Mass/Vol] 6.7 g/dL Normal 6.4-8.2 [facility] Comment on above: Performed By: #### L IP, CM #### [facility] CLIA # [id number] [address] [place] [address] Sodium [Moles/Vol] 137 mmol/L Normal 136-145 [facility] Comment on above: Performed By: #### L IP, CM #### [facility] CLIA # [id number] [address] [place] [address] Urea nitrogen [Mass/Vol] 11 mg/dL Normal 7-18 [facility] Comment on above: Performed By: #### L IP, CM #### [facility] CLIA # [id number] [address] [place] [address] HISTORY PRESENT ILLNESSon HISTORY PRESENT ILLNESS Name: NICKI OVIEDO : 1975 Unit #: [id number] Age: 45 Family Physician: Dev Location: ER Arrival Date 11/04/20 - 1756 ER Physician: CHARISSE NORIEGA MD-ER [facility] EMERGENCY ROOM Attending Attestation Attending Attestation I performed a history and physical examination of the patient and discussed management with the PAINT ROLLER WINDER/PA. I reviewed the PAINT ROLLER WINDER/PA's note and agree with the documented findings and plan of care. Any areas of disagreement are noted on the chart. I was personally present for the ferrer portions of any procedures. I have documented in the chart those procedures where I was not present during the ferrer portions. I have reviewed the emergency nurses triage note. I agree with the chief complaint, past medical history, past surgical history, allergies, medications, social and family history as documented unless otherwise noted below. Documentation of the HPI, Physical Exam and Medical Decision Making performed by the PAINT ROLLER WINDER/PA is based on my personal performance of the HPI, PE and MDM. For PAINT ROLLER WINDER/PA cases/ documentation I have personally evaluated this patient and have completed at least one if not all ferrer elements of the E/M (history, physical exam, and MDM). Additional findings are as noted. 45-year-old female presents to the emergency department today stating that she is having a chronic flare-up of her Crohn disease. She does report increased pain nausea vomiting as well as diarrhea. She tells me that she has not felt very well today. She tells me that she took a Percocet but then vomited back up. She denies any blood in the diarrhea. No fevers or chills. She tells me typically when she has a flare like this that she requires IV hydration steroids antiemetic therapy and pain medication. Patient is lying on exam table. She is morbidly obese. She does not appear to be in pain or distress and moves freely in the exam table without any type of guarding. Heart is regular. Lungs are clear. Abdomen is soft but tender even to light palpation. She starts to wince even before I start palpating her. No peripheral edema. OARRS report is worsened for diversion. I will check baseline blood work. I would treat symptomatically but I would not use any type a scheduled medications. History of Present Illness History of Present Illness Time Seen: 18:28 History of Present Illness The patient is a 45 year old female who presented to the Emergency Department with the complaint of chrone's flare-up. Past Medical History Social History Marital Status Allergies Allergies: Coded Allergies: ketorolac (Verified Allergy, Severe, Throat closes, 11/04/20) prochlorperazine (Verified Allergy, Unknown, 11/04/20) promethazine (Verified Allergy, Unknown, 11/04/20) Uncoded Allergies: NSAIDS (Allergy, Unknown, 11/04/20) Home Medications Home Medications See Reconcile Meds Physical Exam Physical Exam Initial Vital Signs Vital Signs Date Time Temp Pulse Resp B/P (MAP) Pulse Ox O2 Delivery O2 Flow Rate FiO2 11/04/20 18:18 98.5 93 18 148/71 (96) 97 Room Air Course of Treatment Medications Medications given in ED Medications Given in ED Sodium Chloride (0.9% Sodium Chloride) 1-4 SYRINGES (3 ML) PRN PRN IV PUSH FLUSH; Start 11/04/20 at 18:25; Stop 01/03/21 at 18:26 Sodium Chloride 250 ml @ 10 mls/hr Q24H PRN IV FLUSH; Start 11/04/20 at 18:25 Sodium Chloride 1,000 ml @ 999 mls/hr Q1H1M IV ; Start 11/04/20 at 18:25; Stop 11/04/20 at 19:25 Ondansetron HCl (Zofran) 4 mg ONCE ED ONCE IV PUSH ; Start 11/04/20 at 18:25; Stop 11/04/20 at 18:26; Status DC Methylprednisolone Sodium Succinate (Solu-Medrol) 40 mg ONCE ED ONCE IV PUSH ; Start 11/04/20 at 18:25; Stop 11/04/20 at 18:26; Status DC Progress #1 Repeat Vital Signs Vital Signs Date Time Temp Pulse Resp B/P (MAP) Pulse Ox O2 Delivery O2 Flow Rate FiO2 11/04/20 18:18 98.5 93 18 148/71 (96) 97 Room Air CHARISSE NORIEGA MD-[facility] November 04, 2020 18:36 (Please note that portions of this note were completed with a voice recognition program. Efforts were made to edit the dictations but occasionally words are mis-transcribed.) Electronically Signed by: CHARISSE NORIEGA MD 11/04/20 1836 CHARISSE NORIEGA MD [id number] cc: UNKNOWN Normal [facility] HISTORY PRESENT ILLNESS Name: NICKI OVIEDO : 1975 Unit #: [id number] Age: 45 Family Physician: Pt Location: ER Arrival Date 11/04/20 - 1756 ER Physician: CHARISSE NORIEGA MD-ER [facility] EMERGENCY ROOM History of Present Illness History of Present Illness Time Seen: 18:19 History of Present Illness The patient is a 45 year old female who presented to the Emergency Department with the complaint of chrone's flare-up. Patient reports she feels as though she is having a Crohn's flare up. Her last colonoscopy was 2016. Patient follows with GI service from [place]. She denies any recent evaluation for her Crohn's. Nausea but no vomiting. Patient normally has diarrhea but reports she feels it is a little worse than normal. No urinary symptoms. No fever chills. Past Medical History Social History Marital Status Allergies Allergies: Coded Allergies: ketorolac (Verified Allergy, Severe, Throat closes, 11/04/20) prochlorperazine (Verified Allergy, Unknown, 11/04/20) promethazine (Verified Allergy, Unknown, 11/04/20) Uncoded Allergies: NSAIDS (Allergy, Unknown, 11/04/20) Home Medications Home Medications See Reconcile Meds Review of Systems Review of Systems Constitutional: See HPI Skin: Negative Opthalmologic: Negative ENT: Negative Respiratory: Negative Cardiovascular: Negative Gastrointestinal: See HPI, Abdominal pain, Diarrhea, Nausea : Negative Musculoskeletal: Negative Neurological: Negative Psychiatric: Negative Endocrine: Negative Hematologic/Lymphatic : Negative Allergic/Immunologic: Negative Physical Exam Physical Exam Initial Vital Signs Vital Signs Date Time Temp Pulse Resp B/P (MAP) Pulse Ox O2 Delivery O2 Flow Rate FiO2 11/04/20 18:18 98.5 93 18 148/71 (96) 97 Room Air General Appearance: No apparent distress, Obese - morbid Neck: Normal Inspection, Soft and Supple Respiratory: Easy effort, Good inspiratory effort, Good expiratory effort, No accessory muscle use Gastrointestinal: Soft, Nondistended, No guarding, No rebound tenderness, Tenderness - diffuse Back: Normal range of motion Musculoskeletal: Normal capillary refill, Normal Gait, Normal range of motion Neurologic/Psychiatri c: Alert, Oriented x3, Normal mood/affect, Five plus strength, Intact touch sensation, Intact language/cognition, No motor/sensory deficits Skin: Normal color, Warm/dry Course of Treatment Nursing Notes Assessments Nursing Notes/Assessments: Reviewed Agreed Medical Decision Making Medical Decision Making I did confront patient that she fill the script two days ago for 20 Percocet. She initially appeared surprised by this and then reported and she received a script 1 month ago from an ER doctor and just filled itl Patient appears quite well despite stated complaint. She is added taking Percocet prior to arrival. Will provide IV hydration, steroids as well several basic labs. Nurse advised I cannot obtain IV access. Advise they can defer as her initial labs are unremarkable. No emesis in the emergency room despite oral medications. I did review all of patient's labs with her. Will provide script for Zofran. She does have Percocet at home from previous ER. Advised her she needs to call her doctor and request a close follow-up appointment. Advised patient she has any further concerns or symptoms she can return to emergency room Medications Medications given in ED Medications Given in ED Sodium Chloride (0.9% Sodium Chloride) 1-4 SYRINGES (3 ML) PRN PRN IV PUSH FLUSH; Start 11/04/20 at 18:25; Stop 11/04/20 at 20:11; Status DC Sodium Chloride 250 ml @ 10 mls/hr Q24H PRN IV FLUSH; Start 11/04/20 at 18:25; Stop 11/04/20 at 20:11; Status DC Sodium Chloride 1,000 ml @ 999 mls/hr Q1H1M IV ; Start 11/04/20 at 18:25; Stop 11/04/20 at 19:25; Status DC Ondansetron HCl (Zofran) 4 mg ONCE ED ONCE IV PUSH ; Start 11/04/20 at 18:25; Stop 11/04/20 at 18:26; Status DC Methylprednisolone Sodium Succinate (Solu-Medrol) 40 mg ONCE ED ONCE IV PUSH ; Start 11/04/20 at 18:25; Stop 11/04/20 at 18:26; Status DC Prednisone (Deltasone) 40 mg ONCE ED ONCE PO Last administered on 11/04/20at 19:34; Start 11/04/20 at 19:25; Stop 11/04/20 at 19:26; Status DC Ondansetron HCl (Zofran) 4 mg ONCE ED ONCE PO Last administered on 11/04/20at 19:33; Start 11/04/20 at 19:25; Stop 11/04/20 at 19:26; Status DC OARRS: Review/Signs of Diversion Laboratory Labs Laboratory Tests Test 11/04/20 19:00 11/04/20 19:06 Urine Color Yellow (YELLOW) Urine Appearance Clear (CLEAR) Urine pH 6.0 (5.5 - 8.0) Urine Specific [place] 1.025 (1.005-1.030) Urine Protein Negative mg/dL (NEGATIVE) Urine Glucose (UA) Negative g/dL (NEGATIVE) Urine Ketones Negative mg/dL (NEGATIVE) Urine Occult Blood Moderate (NEGATIVE) Urine Nitrite Negative (NEGATIVE) Urine Bili (more content not included)... Normal [facility] LACTIC ACID LEVELon 11-05-19 Lactate [Moles/Vol] 1.4 mmol/L Normal 0.4-2.0 [facility] Comment on above: Result Comment: Refl ex Lactic Acid if Result Greater Than 2 N Performed By: #### L AC #### [facility] CLIA # [id number] [phone] [address] [place] [address] LIPASEon 11-04-2020 Lipase [Catalytic activity/Vol] 19 U/L Normal 8-78 [facility] Comment on above: Performed By: #### L IP, CM #### [facility] CLIA # [id number] [address] [place] [address] UA WITH REFLEX CULTUREon BACTERIA, URINE OCCASIONAL Normal 0 [facility] Comment on above: Order Comment: Has S pecimen Been Collected? Y Does patient have any new or worsening URINARY symptoms? N Performed By: #### U ACS #### [facility] CLIA # [id number] [address] [place] [address] RBC, URINE OCCASIONAL Normal 0 [facility] Comment on above: Order Comment: Has S pecimen Been Collected? Y Does patient have any new or worsening URINARY symptoms? N Performed By: #### U ACS #### [facility] CLIA # [id number] [address] [place] [address] WBC, URINE OCCASIONAL Normal 0 [facility] Comment on above: Order Comment: Has S pecimen Been Collected? Y Does patient have any new or worsening URINARY symptoms? N Performed By: #### U ACS #### [facility] CLIA # [id number] [address] [place] [address] SQUAMOUS EPITHELIAL CELL URINE 1+ /lpf Normal 0 [facility] Comment on above: Order Comment: Has S pecimen Been Collected? Y Does patient have any new or worsening URINARY symptoms? N Performed By: #### U ACS #### [facility] CLIA # [id number] [address] [place] [address] Appearance (U) CLEAR Normal CLEAR [facility] Comment on above: Order Comment: Has S pecimen Been Collected? Y Does patient have any new or worsening URINARY symptoms? N Performed By: #### U ACS #### [facility] CLIA # [id number] [address] [place] [address] BILIRUBIN, URINE Negative Normal NEGATIVE [facility] Comment on above: Order Comment: Has S pecimen Been Collected? Y Does patient have any new or worsening URINARY symptoms? N Performed By: #### U ACS #### [facility] CLIA # [id number] [address] [place] [address] Color (U) YELLOW Normal YELLOW [facility] Comment on above: Order Comment: Has S pecimen Been Collected? Y Does patient have any new or worsening URINARY symptoms? N Performed By: #### U ACS #### [facility] CLIA # [id number] [address] [place] [address] Glucose Ql (U) Negative Normal NEGATIVE [facility] Comment on above: Order Comment: Has S pecimen Been Collected? Y Does patient have any new or worsening URINARY symptoms? N Performed By: #### U ACS #### [facility] CLIA # [id number] [address] [place] [address] KETONE, URINE Negative Normal NEGATIVE [facility] Comment on above: Order Comment: Has S pecimen Been Collected? Y Does patient have any new or worsening URINARY symptoms? N Performed By: #### U ACS #### [facility] CLIA # [id number] [address] [place] [address] Leukocyte esterase Test strip Ql (U) Negative Normal NEGATIVE [facility] Comment on above: Order Comment: Has S pecimen Been Collected? Y Does patient have any new or worsening URINARY symptoms? N Performed By: #### U ACS #### [facility] CLIA # [id number] [address] [place] [address] NITRITE, URINE Negative Normal NEGATIVE [facility] Comment on above: Order Comment: Has S pecimen Been Collected? Y Does patient have any new or worsening URINARY symptoms? N Performed By: #### U ACS #### [facility] CLIA # [id number] [address] [place] [address] OCCULT BLOOD URINE MODERATE Abnormal NEGATIVE [facility] Comment on above: Order Comment: Has S pecimen Been Collected? Y Does patient have any new or worsening URINARY symptoms? N Performed By: #### U ACS #### [facility] CLIA # [id number] [address] [place] [address] pH (U) 6.0 [pH] Normal 5.5 - 8.0 [facility] Comment on above: Order Comment: Has S pecimen Been Collected? Y Does patient have any new or worsening URINARY symptoms? N Performed By: #### U ACS #### [facility] CLIA # [id number] [place] [address] PROTEIN, URINE, (MULTISTIX) Negative Normal NEGATIVE [facility] Comment on above: Order Comment: Has S pecimen Been Collected? Y Does patient have any new or worsening URINARY symptoms? N Performed By: #### U ACS #### [facility] CLIA # [id number] [address] [place] [address] SPECIFIC GRAVITY,URINE 1.025 Normal 1.005-1.030 F [facility] Comment on above: Order Comment: Has S pecimen Been Collected? Y Does patient have any new or worsening URINARY symptoms? N Performed By: #### U ACS #### [facility] CLIA # [id number] [address] [place] [address] UROBILINOGEN, URINE 0.2 EU/dl Normal 0.1 - 1.0 [facility] Comment on above: Order Comment: Has S pecimen Been Collected? Y Does patient have any new or worsening URINARY symptoms? N Performed By: #### U ACS #### [facility] CLIA # [id number] [address] [place] [address] Coding Summaryon 10-29-2020 Coding Summary HTMLBase 64 KhimmbnmVIv2mPb+PGhlY WQ+WL9DDJLgC71nkOJrxD 2SU6bDPP1TBDTHJSSTRK9 XCC0feDQ4JMafB8IkdaRl XyrwmTJiYJ18DFy3LRB4y RmuQGfoiN2juHXvV6h0Dv VpIH43cI22JHyaMTCaGjA 3LjZpbjsgbWFy L6rtAuGvyLQyOcy+PHRhY mxlIHdpZHRoPScxMDAlJy LuvIufPJ4kYs8oIYDmBXF vbGxhcHNlOiBj h6xtPTPxBZvjTB1dnOhbA 2BjsGF8HIIjf0y0Ob52tL I+ITJyPAC5vYonKOxbf07 7IvExx7ycRWY8 oAGuQFqpJBI5F07fv6H0P CVbEEKvFWT3sGK4hF3dyX bdseqjG0LknDHtKrI9JAY 5pIJfrU4tmCck qbkpgY5lIza+G67FBD4MG HNTSZ7AZjv1B4YdNewoyR I+PW12WSUoGN90wKTciCR va1ydfGw9LvZk NJCtWOE4eEvhLHxna6RhA GNpR83ufHSfc8V7MAOlbC onxXOoUjDhsJW2kK3cGHg atoatu9hktgke Vzhzl4rraa52nZ48B86aF VedZAZyNCY4COTqXHYiiC lwcu4ylJ7hPn3+SDnfh6i pk5vucAz1EbVw KQHqjpEbnSdmQOT3m3KmU p37Z2QorEqqu4TmUhm4iv 37gQVlt9P4iMX4CNysLGV dgA7fYEtrBwZ3 CKPmItLfuW08oQDuJNhgH k9heIjbmIttJX5xALVoiw dbPKXrmW3tQNDagQGieEa sEF1bYJLdwkjq h298AgVhVOB0NCAhjGHjS 3RgoV6wAgTrOASkNEWhI2 IitLZcEPzwH232SQgqHkU 7XGOspuPnB6Tv GHQrzLmqTxH6r8P0Jk9Jd 8GijvpgEML4GMauLNO8Me P6BeKcUaB4U1TxZna4RFY uaBoyWC1zE4Eh ZNXfhxqblsoxtMS5XFEwW GYnnM92rMFpMEgmZf5qa4 C3r026MQAtIZSkuF97Ua5 udDogMTBwdCBU iT1gkahcr2ltjfutUcCoA RVrYUf8DGh8DQMutKwbJb MuURA1HbA2HWX9oYHhtL6 nlXgkcdsigV0r Oyc+Y19dxY2hTOM8MRD5k jydZJSrthFyCZ07WE28W4 RyPjwvdGFibGU+PGRpdiB fmFlmZI3rNwMr k8mia1LoMKhwG6CpLMWhM CljKyg6WLWxGLG9fRM8kK 5xARFgTBvkq1T8pBY2G8R rajSjno1ux4ng WDHpSQhbC82goWZtu9I3O XYfgHB9QTVslXrgHdMpuP 93Oyc+PHYcyLcqp3UpBgq ys4tug7xnfJg6 CcIgZROhvmIoqVchYWA6t 1IbJv49K38bFUlkQECaHO EfEYYiSQQmpVfnng2ydF6 wIi8+PGNvbCB3 fCL3bY4xCIEcFiH9LWhpC 641CxEyaVWsZvdkt3xzq8 yjuWy3JoCpDPUmzjFcuHq pWUE0x0MhUy07 U59xBKrtAYObMGDmWVWbS CQtqIxcsx6rlY6oBk8+PC 7qi6aerm15aZ00jXT+PHR tPOB6rMycPEwy VDTdsN0eIPteXrH0CDSiH hPanC41nDTiBQhhYv6ziS zrqLabRH6tQTQxxhhtj09 2JzGil8jjWOPq gSQdACgcEWB1V95mz4Z3F EXyJWWlPYS8fNS7xM8qjP lnbjogbGVmdDsgdmVydGl mUSxpCJxyP420 IHRvcDsnPlBhdGllbnQgT nEhVXt7N3UaTox1VGVvxX uqTT2utHQvFWgeVv0ctRx zvFmyBA7aWPGa vxlxt868TrOwj8uuNBGez ARkQOycSFD9Z47kg4W9SZ XtFYMmQHG1zEO3sZ3lrDt nbjogbGVmdDsg akSkmPjsOZbpLNtnO960G HRvcDsnPkJpcnRoIERhdG Y1LK02CR17xAQou2D3xAW 4F5TpYLBrcfih qhjgqAH8ZHFnBDIfpF31I i1dfTntNe0kVCPwSLM1XE GyhGPmU4JmqG2uCiQwOPU yISOdZ9HugLGa XDpqC215EHzdNrN3VVMto iVrA9OdFVPetUauNlX5t2 F7Km5PF5X5UG77FJ83dKQ wk7X7dJH0P7Ey UTDnjgehagznwZX4YVZdU HSniI07Uu0rlOzaJk6vGR LpJOH9AYNavXExW8UkoG9 yOiAjMDAwMDAw E9NngNLaTBslN885IPvsE qO8BYFwnwKaX7ZaGJCjhQ vkGnH8v7W8Qv8BNIu4PD6 5KY62kOQup1X3 cJN0X3CiZCRzoljvljstk FD2KWCkBIXziO69Wu0gbY goZx7hEAIkBOM9WSJamAW uG3JnxE2eUgFt MQUmAIFjU7VcoFFzHFrvO 248SOjjTqJ8HUUctvFbK5 BkXMUuwQleVyZ0t5I9Oc9 QWDKvPG50RKF4 bZR5ZZ15IV52P2ZeAvhyx GFibGU+PHRhYmxlIHdpZH RoPScxMDAlJyBzdHlsZT0 bWt7xITHiJQGn oTznzVKfOdOia8euVUOiZ EreIC4plZctQ4NsvBS8IO Aco1c8Ij29W14bU2AljUR +HNOndMO4bUM5 iR4wVfJcZsP0YLmaZ360U iTqpVQlXsgtf9lff8dsaB b4XfK7FONruzXusRkyEZW 1q9MiMf21Y73y IHdpZHRoPSIxNSUiIHZhb Ctqbs8cdA3cXi6+PGNvbC Y8tIU2tA6eQkNwAfD1ILh bF314LbHabISt Sedqn7pzq8ycfDy1RuVpN YMuzxJjbKmyOEU6i3RuCr 81V4DueBnee2GjPgm3oc8 5gFOcc8J0gVY8 F5EnKKOgbubceGStvPbnB Z8aAZTncrzfUCSgnZ0tOM WxW3z4IcBuKcX5WVjxE8I egqM3POPfkPNw MPuwCXV7W61tu0L5IERxN YOyBDF0nYR8oJ6csQsnlu ogbGVmdDsgdmVydGljYWw kLFkwP749NTBe xPogUAIidE1aLPJucWUxk NrpLN9fMEJtizhuPeqXSt YTHifzYJ5VZBMEZDnDPcB USDwvdGQ+PHRk QTL2cBugZHppRWGuuG9wO CXeV0p6GuUeRrU7UQvnX0 BxEYGhnanvNi73vQ4uJyS hCsB5SYqoS7Kn dkL9RJOljZCoZQbzMJI7G 93sg5C6KONkFJTuZIH0mD H5oN5fpTkzqcuvvBCoiCk gdmVydGljYWwt MArxT731SAXycAhuOtEoF kOjLvF8Bko2S5DkGbg0OD KqwDjfIT5whFEaQSnuSy0 vcNfudKkuIO7b OKGjpmjjNZVhtB2lMEDpt RZutImjGL0aOWLujchyr0 41BmNpIPW8QIXyvZXtK0H reP1aJsVzLKYc NWVmU4VlcTRuADpjP664B MeoJeI1TJLfwmRcA1XbNO RweKenGzT0l6B0Eb20QnJ ZZWFyczwvdGQ+ PPVwOVT0rJvgRZeuAWYpk H5aFRVxV2y0UtGgWzR8NG ynD0CoCVAnkuhhJv02vG4 eUaAcIkP6YLqh C2NhqmD0CJEsxICoWQjtP UA4T33ho3J1KRSgJGAgPH X7wDQ9yT4cqJdjzgaxxXA mdDsgdmVydGlj YUqdZZwmO984PQMhfUbfB kZFTUFMRTwvdGQ+PHRkIH Z1pFslCPwgWFPqgS7dKJO aK3k9JlSsSyH9 QOhmD6CbCZGcylyuXr08e W9jGuYnBwW0JFymS2Dggp T5SVOhbCVpLWsaTGP2U65 dy9Y2IWOfAOPi MRJ8nYU1eA3imFkpvalnq GVmdDsgdmVydGljYWwtYW buO386SEZvbQbwJa4ANA2 0YE44U0FpSfxc dGFibGU+PHRhYmxlIHdpZ HRoPScxMDAlJyBzdHlsZT 4eRy0zAEDeHPIabYanjYS pBhEjw5gwLUPq YRepBF2mpXpwV8CwpEC6S RBsb3y9Dj51G90bO8PktX A+NMVaeOR3rFF9vZ2tFpN eLlA6XNxtM162 KiCynVRuArpvd5ijh6xtg Dd9TjQpDDWfgqAscXrcRI M9k5HtJi32O91jQFdpSBM oPSIyMCUiIHZh mAcykl0dmT9gVv0+PGNvb JH4fUG4iZ7gViXpGjE9TZ xwC475EjSgrEZhEbfdT77 vC3PyzSG+PHRy Onp9MCYbaFtbBJ6abDLrA OjlQi5bIJX5HhMpLfUtLD zrF2JmEVRsyupakroffKI 5MYUeZYFszU68 Al9cvJmbAs8zJPYaKTE0P VEtcVLfP8HhxX5xVqEtLT QiDODwZ3ClhIWeQGqvJ66 8BAjoUzQ6UPWd aqKyF6ZqTUFwoKpsWpZ9m 6S2Gl3ZsLtrlBDgRV9vYb DhIIl1V0SqWmz3AAJbsXm vCA5jeNLfODck Lo8beBoreYehMP5jRXJxr wmkw566KvLoi1ijMQUkpP EwPAwdYRN0X07qt8H9UHN pBUYbPGP3sLX3 aZ8heCpymdjviMIgmCbgz cPtkGyhASkjGZsyC189GV OxiWodRkXDLfs4I3AyXxa 4THClsUqhPY2o gZRzKVreEp6zbKrpdGjjA K6kCTLmgkxae201KfXub5 ooOLXyfADgCMgiDRH6G91 li2N6MGPkLSWl WUN3cXO5wT3hvVkwapema GVmdDsgdmVydGljYWwtYW jfN459BDEusGtuDs2CMcb 9D7ZgLoh4EHMb tMkrXT4ggABeWHarEb1ba YomnFnpBL1eEZDdktkru3 11HgRte7nxWBWeqQZyYOm oRLX1V35gt4F7 ZPGsIGNqJHR0vYG3mD2in GlnbjogbGVmdDsgdmVydG jkCUzcGLfcM565MNQfvUd nPlBheWVyOjwv dGQ+EP23gn71J4WzCvtyZ nh9KOYlPAR4vSI7jA8gQB CcGLjut9C9wAX8E8CynlW ktd2hx6owSIFs ZTo (more content not included)... [facility] Coding Summary HTMLBase 64 JsexgbfnNCv3lNt+PGhlY WQ+QL1HTIWlC34ccTKliJ 5TS1dQGB7IXOFXODQLJS5 PQE6aiRZ2GGbeS5VrmrOj WnxceEHzYC81GOe7QUS0p ZqiSFxrsC6rhEXpX6d4Sp MdCK96jG21GBxlOLLfWuO 3LjZpbjsgbWFy V7vyHuEuoOJnMrh+PHRhY mxlIHdpZHRoPScxMDAlJy TjrAmpNQ4gXg8zTQSpLBA vbGxhcHNlOiBj i7ifEKLdNYuvMR6gmVxqX 0UyaXM5BMCzp8b7Nr48gK I+AOCyRRT3yOweNSpzy61 0QeJgl6ewVLJ3 kZUsVCedELQ7S75qp2S7W XLzPNJvMTU5pSK3iC0tqU otdhniA3OtiIVqCvO5ABB 8aHRfyQ4pwNqu npsiaS6wIpp+G61CFX9VE HCRZF1NRfu2O8WxYqqmqP I+LL28IYNxOS06wXQcsJY iz2slvPb6DrNq HHVmDZS9gIksXBsdk0GkF PVvZ27gcQNzt1E8GLYgjI mvaGGtIgSkzWE1uW8lURc ssekkc1zpwyih Tjmvu8fwag91xN59Q46pD MmqWNOuNND1ORLdVGEwlN ticb1jtP6vYe7+YChpv0d xo0xasTk8WqZg KOEnhxZtpIcvKWL4m1ZsE l49E1JlpClmm3LqThe0qy 59sHFlq2Z6wME7AOvsBYM msV3pIPriZuO5 SALiCfDgoZ42lMJlIUimM w2ttCowzLkrEV5jBCJipl zxDXIraS8kMWEevGMflKf yCJ4eWYRzmgfp l088GqMcVMP4FXQlkGHtI 0PeoV4wOpPzFKYdCBXeT3 OqvSSiVGpwK407YHpbWqV 7EGMaslGeV6Av VWAicNsyZaW3t8Y6Pq6Gv 0RaaernXJI8ROewYSW4Kt F1EhIwIbT6Y6RiZxt3OXG mvZpzSI4zW3Kc GYQihekisqrlsEL9QHGoJ ADlkP45uSHlIJewOi2yt4 G1r304DPTlFTVbqY65Tt9 udDogMTBwdCBU wG9wolffv6fytuzpCiQnZ KYzIEp0TFt9XIBzdCkqMi FxYEG0JoL0NXA7cIMxdX1 dmFdwjwjnzA7y Oyc+C69dnB4sXIO7ZLP1u ydhMTEnswNwRO85DQ32T3 RyPjwvdGFibGU+PGRpdiB vzKndWM0kItMt f2neb4TtBNjfI3PeURImD GvkRkg6ZYHhATP9zJL3eK 8kTDAqLWtoz2G6yBV9J9W cvhKhxb5tu5vq KJMuLCciL99gbLVrt2P0L LGeqIC4CDEtpStpIbHgoC 93Oyc+DRTafGber3UjCrd ci9bzw9dusDm3 HlTxWUIrqcVkfPbnBWD0i 1FtDa54S51uRKvmCSSqYO JqRZPrJDSepUauvp8ubG8 wIi8+PGNvbCB3 rJY5fG2lHGJuKlG8QZunE 252AoTopJYrDetrp2oij1 tsnZc5FfIqWWPwivCsiQl kIMG6u7BfEm01 A03qAZjkDUNqTULeWAHgX NJunNbkaa0jmN5aQu2+PC 3jo0neud99gE47uKS+PHR kGNI5yAjeYUvi ZOOamY2kSVaxVrS3FTWyH cJdcR39kENnWLunZa1diW jfcQtzZB5qLPFueplhq10 0LqKze5fjPESx nUSgLSmxGGI2S83gb3W2A POlINJcYWA5mXV5oW7tzT lnbjogbGVmdDsgdmVydGl sZRjmPNnfM880 IHRvcDsnPlBhdGllbnQgT sYgKVs0D4ShEel0ZVHwcQ xuWP7ujVZhMGowSm2fcQd wlOmaFL4aKHUv gduae767BjFhe6pqZPRmg BUgPJjuPDM9R78dg5L0BG AtBEEjNLS3xBS8wC6oxFz nbjogbGVmdDsg hgVxpCmfJGtqKEmrH136I HRvcDsnPkJpcnRoIERhdG O8EZ05DN88rBUgo6N4yFH 0V1FaHWNypfca njulsJX6FHAsSABudW95F z6yuWeqFv7cEBOiLFV0XP KuxNCvD2XqbN2eLtUwUHA tUAFyC2FeoRKk IJbsZ277URdxTlC3ENZvy qUiN5UrXRHplCifRiC2j8 T5Sw6RA7O6VL11BS98jGE wf3L5jUV9I7Tb FSCbdtnzbbrrgQG8IQGeP CNbmQ01Xh2amLnjHf1yWU UuRIS0BYOibZNpI4GbjV7 yOiAjMDAwMDAw Z8MmbBIxPRobR599PDdqA iY8DGWjlyNdI5MrASIzrX gvZcM4h7P7Tx4WJEb7VZ1 9OV70tYBnv9N9 nWI1Q7XcYRPwhonppxwdf RA7FPDwDVUmlA85Zu2jaZ xoSe3pQQTeXOO6IIVfyTI yT9AehR1hBlJo KLGgSGBkA1AywYSfLWejG 951XVaaZbD2XOSmjvMnG7 YlMKBsgEoxGsJ4x8Q8Py8 KQOYzSM48NDR3 qEI6BJ01OE61B5RbZzabb GFibGU+PHRhYmxlIHdpZH RoPScxMDAlJyBzdHlsZT0 gMi4yCOZtSIWr hAennGNnChWiw7fnCZAjW JulKE6dmZhuT1VapXV6OM Rbb3f1Jl17O54vN1NumCA +FWQaaZE9eDQ4 iH9xNqRmCuR3JPotW395N dQctONuYxomv7zwt3zfaZ d6AdD4YXRehmChtQzhMOR 4q6MrWh42T13l IHdpZHRoPSIxNSUiIHZhb Utwol6shO2bJn0+PGNvbC L6bKY2iV7bIiZdKkK8PEs qT457TcGiwOYo Lrlyj9unx3opgCk9KvEdN AHzboSrcSiuPNS9c0HtKo 66J6TsgXknn6UsUjl4xj5 7cNRep0U7rHD0 B6MgISYolmzbkYElkFwvV L9aMNObeaunIIYxsT4tAA WeU0i3JrVrVnD2WKdyG4L vpsO8VQZgtQXw XWqnODS4O14jn5K4VFMfQ FNjDFJ0mNP3rQ5ctBpijl ogbGVmdDsgdmVydGljYWw iXBzvL062VZOy kHzfYLGfmR1nHQMkuOVme WwzUY9xCWUhxsvoBekDAk IQEuqyZG3VEYMLENeDEzZ USDwvdGQ+PHRk ZKA0yWxjQVkmAPWswU7lG YQlK6t3VePvLlM9VTmdB5 BnQIJfwytyZz30oN5cYnD cEmO6ADvzQ3Yt yzP4IWJtjYFkGNmmYEA6H 77rd9V5PIGcNQYzYXJ0zA S1aV6tmJrjlkbxvXAcrTp gdmVydGljYWwt YJnkV478OYOepUqsVtAlP oAjLoF5Ybb4Z7DlFpp9HM XzdBteJA3dpSReHCkrCh3 llAhpaIhlWR0v EMKavlvyMQAdqO6vRTKvw YPakGjyXE1dBDBsixuhw8 16GcWwPYM8KWQyaVXxL2F ixB4qMbDlIYXk LWSwS3TtvEAgPYmaK503U CofEjR9JKAqexScQ5FuMX ArmYrjDiQ7f8F6Cv11AmX ZZWFyczwvdGQ+ NKClENS2kCrpBIezTYDmr C0zMHNeU8t0HuZqMfI0AB eeM7YrCLFgtffjVl93zK4 nNeOtHiW8SRep P4PyaiS9EXLdbHIuTKfjG FN8Y92as4U0TBXfZIOyYX Q4yUG5pV2yrXpbdvfzbZR mdDsgdmVydGlj ICprDTyzG759ONNkkIjpO kZFTUFMRTwvdGQ+PHRkIH R5aUkbFRpmOHWjdR7iLTW qN3m6DkDtVaI5 XZgrO8KrGXWednirSe34n V9hXmClElU5VPdpX0Cuii K6RJAfvQDgAIweOJE3T30 ty5C1NMLcOTNk GMJ2rGM8xW3hkCdbvpgpp GVmdDsgdmVydGljYWwtYW vsF275NRZufYgeNhTxCHZ kZN7mnQjzsXD+ LQ80su57U9IeZyxdTzz4G JDwQEY1hFB7pN0aMBOqLZ eqf6R5hXW4H1FwpyRoxg3 cy2lxVQCrEKnl M07rySUri7Y4BRLqjJG4Z MUpjZviWlPmkC26Ohz+PG ZrbKnuf3RyGyphz3rmg3d vkJa4EgToDJPa ooPfuJqiYAD8f2ThIc70L 29sIHdpZHRoPSIzMCUiIH XvwAlyui7xzS1mSf2+PGN ezGH4gPH6xV2q MbNkStA4MZepG478OtNpj WUdErbsg6upz5oibSa0Mw UcGRRgcoNfeJbnCPR4d4U aIk36B7UhlNln n1HyPif8qy83uOWmv5B9l RE0E2ZtBMWxwjqovIGkcM ilDM2pQTKhiftbMGWytJ9 qHICoR7f0TeIx ThX1MMkxH2KwkfF8USQip THvFCIgoPZXhK4yzlfgt9 seocjgOeQzUNRcPTl9SWn 0LWFsaWduOiBs SEM5BrT6ITW5sEMolK5pb VmxbrtgeG3yUjn+UGh5c2 vhyDRkRT3icTL8LL31VA3 8iXRha4A8fIX3 E8UtYWAhvnmevoqvxWX9I PMhAPSbiW00De0hdGmwOm 1iCVIpXGV1RLNpdPQrX3U llJ1iYeIfPMKq KPFeW6QkuTHoTWgxI781V GgoQqJ3KPBtqeMmV9KxSD NgvZvdKpT4y9Q9No6UQH3 2LR34AR20qWVa x1W7yDD3A7RpIBRkexnjf zqeuVG5QFRqPXTwnJ45Iu 6xpBjmPy9cSDOpSSD9EPE cbBEaC3OcyI5f IcPcMDFwPPTxQ9SrwYKpB XrtO256HIqgFdG9HKLzkl DfA0DcALPddGbdAyX1z4M 0Zc0KGw60CL61 FE41gRJye6M4jMF7P3TlB UGhyrbwgoqjbRZ8SWMkJB LmjF14Si8lyMixLp5dAZH tNTN3LPFjcLOs W6ShuR3vAwHtGFWsFYOqR 3GarJNxXZboO328HUqlMd U3XOWaurEzD7AxACWosJv iDaI9z1J4Lu8F FNmtaxl2D4NhAferoIG+P M97VYQhFX77uOBwnEAxf8 hguOp1MnPeKKMwHJK6fPg hZEwlh3ReBAHi Y29 (more content not included)... Normal [facility] C Urineon 10-26-2020 C Urine Urine Culture ordere d as a result of parameters set on specific urine dip and urine microsopic results. Mixed skin, or urogenital maria c. Clinically insignificant Normal [facility] Comment on above: Performed By: #### 1 [id number], [id number] #### [facility] (DEFAULT) [address] [place] [address] .Auto Diff 1on 10-24-2020 Auto [place] % 9 % Normal -12 [facility] Comment on above: Performed By: #### 2 497248, [id number], [id number], [id number], 5862701, [id number] ####[facility] (DEFAULT)[address] [place] [address] 27331 Baso Abs# 0.0 x10 Normal 0.0-0.2 [facility] Comment on above: Performed By: #### 2 012185, [id number], [id number], [id number], 7055640, [id number] ####[facility] (DEFAULT)[address] [place] [address] Basophils/100 WBC (Bld) 0.2 % Normal 0.2-2.0 [facility] Comment on above: Performed By: #### 2 087716, [id number], [id number], [id number], 6817788, [id number] ####[facility] (DEFAULT)[address] [place] [address] 50826 Eos Abs# 0.1 x10 Normal 0.0-0.4 [facility] Comment on above: Performed By: #### 2 843447, 80425900, [id number], [id number], 9564594, [id number] ####[facility] (DEFAULT)[address] [place] [address] 49569 Eosinophils/100 WBC (Bld) 0.9 % Normal 0.9-4.0 [facility] Comment on above: Performed By: #### 2 964699, 28881298, [id number], [id number], 2267202, [id number] ####[facility] (DEFAULT)[address] [place] [address] 74989 Lymph Abs# 3.1 x10 High 1.3-2.9 [facility] Comment on above: Performed By: #### 2 959880, 29985946, [id number], 4852745739, 7810601, [id number] ####[facility] (DEFAULT)[address] [place] [address] 02946 Lymphocytes/100 WBC (Bld) 37 % Normal 14-48 [facility] Comment on above: Performed By: #### 2 366334, 49446525, [id number], [id number], 0271665, [id number] ####[facility] (DEFAULT)[address] [place] [address] 34076 [place] Abs# 0.7 x10 Normal 0.0-0.8 [facility] Comment on above: Performed By: #### 2 805733, 53489186, [id number], [id number], 9833905, [id number] ####[facility] (DEFAULT)[address] [place] [address] 53928 Neut Abs# 4.5 x10 Normal 1.5-9.2 [facility] Comment on above: Performed By: #### 2 537138, 70415352, 3798842617, 7872350057, 0237624, [id number] ####[facility] (DEFAULT)[address] [place] [address] 64835 Neutrophils/100 WBC (Bld) 53 % Normal 44-88 [facility] Comment on above: Performed By: #### 2 303541, 00344467, [id number], 6309771826, 2295755, [id number] ####[facility] (DEFAULT)[address] [place] [address] CBC w/ Auto Diffon Erythrocyte distribution width (RBC) [Ratio] 13.4 % Normal 11.5-15.0 [facility] Comment on above: Performed By: #### 2 368166, 09116397, 2250033160, [id number], 4660506, [id number] #### [facility] (DEFAULT) [address] [place] [address] Hematocrit (Bld) [Volume fraction] 41.2 % High 33.7-40.4 [facility] Comment on above: Performed By: #### 2 992317, 64620044, 5726694638, 0043632105, 8519582, [id number] #### [facility] (DEFAULT) [address] [place] [address] Hemoglobin (Bld) [Mass/Vol] 13.5 g/dL Normal 11.3-15.9 [facility] Comment on above: Performed By: #### 2 849033, 66671297, [id number], 7279709292, 7091720, [id number] #### [facility] (DEFAULT) [address] [place] [address] Instr WBC 8.4 x10 Invalid Interpretation Code [facility] Comment on above: Performed By: #### 2 477990, 82445834, [id number], [id number], 5369839, [id number] #### [facility] (DEFAULT) [address] [place] [address] Man Diff? Auto Normal [facility] Comment on above: Performed By: #### 2 196314, 97367263, 9577363763, 5308694831, 2576851, [id number] #### [facility] (DEFAULT) [address] [place] [address] 71706 MCH (RBC) [Entitic mass] 30 pg Normal 24-34 [facility] Comment on above: Performed By: #### 2 069729, 93897721, 1131040838, 1211253526, 1416076, [id number] #### [facility] (DEFAULT) [address] [place] [address] 26215 MCHC (RBC) [Mass/Vol] 33 g/dL Normal 26-37 [facility] Comment on above: Performed By: #### 2 434093, 06576312, 9601045448, 7463656819, 5902311, [id number] #### [facility] (DEFAULT) [address] [place] [address] MCV (RBC) [Entitic vol] 92 fL Normal 81-100 [facility] Comment on above: Performed By: #### 2 177233, 31426606, 3671112131, 5930420768, 9414816, [id number] #### [facility] (DEFAULT) [address] [place] [address] Platelet 312 x10 Normal 138-427 [facility] Comment on above: Performed By: #### 2 489128, 95529223, 5190800764, 2393263298, 8856641, [id number] #### [facility] (DEFAULT) [address] [place] [address] 43520 Platelet mean volume (Bld) [Entitic vol] 8.9 fL Normal 6.3-10.2 [facility] Comment on above: Performed By: #### 2 103431, 22792562, [id number], [id number], [id number], [id number] #### [facility] (DEFAULT) [address] [place] [address] RBC 4.46 x10 Normal 3.70-5.30 [facility] Comment on above: Performed By: #### 2 [id number], [id number], [id number], [id number], [id number], [id number] #### [facility] (DEFAULT) [address] [place] [address] WBC 8.4 x10 Normal 3.5-10.5 [facility] Comment on above: Performed By: #### 2 [id number], [id number], [id number], [id number], [id number], [id number] #### [facility] (DEFAULT) [address] [place] [address] CMP Standardon 10-24-2020 eGFR Non AA >60 Invalid Interpretation Code [facility] Comment on above: Performed By: #### 2 124444, [id number], [id number], [id number], [id number], [id number] ####[facility] (DEFAULT)[address] [place] [address] eGFR AA >60 Invalid Interpretation Code [facility] Comment on above: Result Comment: Hardwood Floor Installation Helper chris Kidney disease could be indicated at eGFRs of less than 60 ml/min/1.73m2. Kidney Failure is indicated at less than 15 ml/min/1.73m2 Performed By: #### 2 480426, [id number], [id number], [id number], [id number], [id number] ####[facility] (DEFAULT)[address] [place] [address] 35991 Albumin [Mass/Vol] 4.0 g/dL Normal 3.5-5.0 [facility] Comment on above: Performed By: #### 2 634110, [id number], [id number], [id number], 6306973, [id number] ####[facility] (DEFAULT)[address] [place] [address] 45130 Albumin/Globulin [Mass ratio] 1.2 {ratio} Low 1.4-2.6 [facility] Comment on above: Performed By: #### 2 388311, [id number], [id number], [id number], 9848423, [id number] ####[facility] (DEFAULT)[address] [place] [address] 80446 Alk Phos 58 IU/L Normal 32-91 [facility] Comment on above: Performed By: #### 2 997233, 08684739, [id number], [id number], 2739422, [id number] ####[facility] (DEFAULT)[address] [place] [address] 20981 ALT [Catalytic activity/Vol] 36.0 U/L Normal 14.0-54.0 [facility] Comment on above: Performed By: #### 2 575606, 80076717, 7743754556, [id number], 8806854, [id number] ####[facility] (DEFAULT)[address] [place] [address] 35792 Anion gap [Moles/Vol] 16.0 mmol/L Normal 5.0-19.0 [facility] Comment on above: Performed By: #### 2 849610, 61278678, [id number], [id number], 4419323, [id number] ####[facility] (DEFAULT)[address] [place] [address] 96241 AST [Catalytic activity/Vol] 22 U/L Normal 15-41 [facility] Comment on above: Performed By: #### 2 939365, 09726121, [id number], 7059000585, 9385252, [id number] ####[facility] (DEFAULT)[address] [place] [address] 75432 Bili Total 0.7 mg/dL Normal 0.3-1.2 [facility] Comment on above: Performed By: #### 2 703025, 46984004, [id number], 0177112931, 7379909, [id number] ####[facility] (DEFAULT)[address] [place] [address] 61944 Calcium [Mass/Vol] 9.2 mg/dL Normal 8.9-10.3 [facility] Comment on above: Performed By: #### 2 748004, 72043898, 1149022335, [id number], 6338687, [id number] ####[facility] (DEFAULT)[address] [place] [address] 33926 Chloride [Moles/Vol] 98 mmol/L Low 101-111 [facility] Comment on above: Performed By: #### 2 108368, 72763496, [id number], 0182124638, 8051396, [id number] ####[facility] (DEFAULT)[address] [place] [address] 69918 CO2 [Moles/Vol] 26 mmol/L Normal 21-32 [facility] Comment on above: Performed By: #### 2 861568, 77388291, 8130255585, 6504452430, 3432435, [id number] ####[facility] (DEFAULT)[address] [place] [address] 75195 Creatinine [Mass/Vol] 0.93 mg/dL Normal 0.60-1.30 [facility] Comment on above: Performed By: #### 2 679599, 48867223, [id number], 0092053539, 5042763, [id number] ####[facility] (DEFAULT)[address] [place] [address] 84565 Globulin (S) [Mass/Vol] 3.2 g/dL Normal 1.5-4.3 [facility] Comment on above: Performed By: #### 2 178560, 73618113, 0914500235, 7272452387, 1835055, [id number] ####[facility] (DEFAULT)[address] [place] [address] 48771 Glucose [Mass/Vol] 183.0 mg/dL High 74.0-118.0 [facility] Comment on above: Performed By: #### 2 582852, 97398889, [id number], 1060966894, 9973060, [id number] ####[facility] (DEFAULT)[address] [place] [address] 96098 Osmolality 278 mOsm/L Invalid Interpretation Code [facility] Comment on above: Performed By: #### 2 349062, 71859528, [id number], 7910291586, 0652842, [id number] ####[facility] (DEFAULT)[address] [place] [address] 53381 Potassium [Moles/Vol] 3.7 mmol/L Normal 3.6-5.1 [facility] Comment on above: Performed By: #### 2 433482, 30323294, 4849025110, 9193754249, 9242807, 5609050046 ####[facility] (DEFAULT)[address] [place] [address] 70602 Protein [Mass/Vol] 7.2 g/dL Normal 6.5-8.1 [facility] Comment on above: Performed By: #### 2 814592, 05087543, 3859810207, 0968131872, 8280914, 7590832575 ####[facility] (DEFAULT)[address] [place] [address] 14538 Sodium [Moles/Vol] 136.0 mmol/L Normal 136.0-144.0 [facility] Comment on above: Performed By: #### 2 400535, 23596823, [id number], 5878588349, 7031698, [id number] ####[facility] (DEFAULT)[address] [place] [address] 69758 Urea nitrogen [Mass/Vol] 17 mg/dL Normal 8-26 [facility] Comment on above: Performed By: #### 2 412328, 16336056, 5130411607, 8963226538, 3109518, [id number] ####[facility] (DEFAULT)[address] [place] [address] 14398 Urea nitrogen/Creatinine [Mass ratio] 18.0 mg/mg High 4.6-16.2 [facility] Comment on above: Performed By: #### 2 484764, 03993629, [id number], [id number], 0933428, [id number] ####[facility] (DEFAULT)[address] [place] [address] 07298 ED Clinical Summaryon 2020 ED Clinical Summary [facility] - Emergency Department [address] [place] [address] ED Clinical Summary PERSON INFORMATION Name: NICKI OVIEDO Age: 45 Years Sex: FEMALE : 1975 MRN: Acct#: Visit Reason: Nausea; Vomiting; Diarrhea; ABD PAIN, NAUSEA Arrival: 10/24/2020 10:46:34 Discharge: 10/24/2020 12:28:00 LOS: 000 01:42 Check In: 10/24/2020 10:46:34 Checkout:10/24/2020 12:28:00 Address: [address] [place] [address] PCP: Duke Velazquez PROVIDER INFORMATION Provider Role Assigned Unassigned DOMINGUEZ EDWARDS ED PA 10/24/2020 10:47:33 Luna Bender EXECUTIVE HOUSEKEEPER Nurse 10/24/2020 11:07:26 VITALS INFORMATION Vital Sign Triage Latest Temperature Tympanic Temperature Temporal Artery Pulse Rate 89 bpm 89 bpm O2 Sat 98 % 98 % Respiratory Rate 18 br/min 18 br/min Blood Pressure /71 mmHg /71 mmHg MEDICAL INFORMATION Medications Given: Medication Dose Route Sodium Chloride 0.9% intravenous solution 1,000 mL 1000 mL Initial Volume 1000 mL/hr IV Left Antecubital Fossa methylPREDNISolone (SOLU-Medrol) 125 mg IV Push ondansetron (Zofran) 4 mg IV Push HYDROmorphone (Dilaudid) 0.5 mg IV Push Allergy Information: NSAIDs; Contrast Dye; Compazine; Phenergan; Toradol PHYSICIAN DOCUMENTATION Patient: NICKI OVIEDO Age: 45 years Sex: FEMALE : 1975 Associated Diagnoses: Abdominal pain; Nausea & vomiting; Diarrhea Author: DOMINGUEZ EDWARDS Basic Information Time seen: Date & time 10/24/2020 10:50:00. History source: Patient. Arrival mode: Private vehicle, walking. History of Present Illness 45-year-old female presenting to the emergency department with complaint of abdominal achiness, nausea vomiting and diarrhea. Patient indicates she has a history of Crohn's disease and this feels like a normal flareup of her Crohn's disease. She states that she was here a few weeks ago for similar issue followed up with her primary care provider. She indicates that a few weeks ago steroids did help along with Zofran but she is now out of Zofran and steroids. She did say that she took 1 Percocet earlier today which helped mildly. She states she is prescribed this medication by her primary care provider. She reports that she is from [place] visiting for Mother[place] Day. Patient states that she has vomited a few times along with having a few bouts of diarrhea starting yesterday. States that this is normal with her flareup along with abdominal achiness. She states this feels like one of her normal flareups denies anything abnormal. She denies having any fevers, chest pains, shortness of breath. Denies being diabetic. Does state that she has a history of diverticulosis. Review of Systems Constitutional symptoms: No fever, Skin symptoms: No rash, Eye symptoms: Vision unchanged. ENMT symptoms: No sore throat, no nasal congestion. Respiratory symptoms: No shortness of breath, no cough. Cardiovascular symptoms: No chest pain, no tachycardia. Gastrointestinal symptoms: Abdominal pain, mild, right lower quadrant, left lower quadrant, acute, achy, nausea, vomiting, diarrhea, No rectal bleeding, Genitourinary symptoms: No dysuria, no hematuria. Musculoskeletal symptoms: No back pain, no Muscle pain. Neurologic symptoms: No headache, no dizziness. Health Status Allergies: Allergic Reactions (Selected) Unknown Compazine- No reactions were documented. Contrast Dye- No reactions were documented. NSAIDs- No reactions were documented. Phenergan- No reactions were documented. Toradol- No reactions were documented.. Past Medical/ Family/ Social History Family history: No family history items have been selected or recorded.. Social history: Social & Psychosocial Habits Tobacco 10/09/2020 Smoking tobacco use: Never (less than 100 in l Electronic Cigarette/Vaping 10/09/2020 Electronic Cigarette Use: Never . Physical Examination CONST: -Obese -Acute distress: No -Vitals: reviewed. SKIN: -Gross abnormalities: No EYES: -EOM intact, KAREN: -Sclera conjunctiva: Unremarkable. ENT: -pharynx pink and moist. NECK: -Supple ([id number]): non-tender. CARD: -Rate and rhythm: Regular -Edema: No -Calf pain: No RESP: -Respiratory effort and chest excursion with respirations: Normal -Breath sounds equal bilaterally: Clear -Wheezes: No -Rales: No BACK: -Signs of pain with movement: No ABD: -Distended: No -Bruits: No -Bowel sounds: Normal. -Deep palpation: Mild achiness with palpation of lower abdomen, no guarding or rebound tenderness, abdomen is soft. EXT: Gross appearance and use of all four extremities: Unremarkable NEURO: -Patient: alert -Gross CN or Focal Neuro deficits: No -Oriented to: person, place and time. -Appearance and judgment: appropriate. Medical Decision Making 45-year-old female presenting to the emergency department complaint of Crohn's flareup. States this feels like one of her normal flareups flora (more content not included)... Normal [facility] ED Note - Physicianon 2020 ED Note - Physician Patient: NICKI OVIEDO Age: 45 years Sex: FEMALE : 1975 Associated Diagnoses: Abdominal pain; Nausea & vomiting; Diarrhea Author: DOMINGUEZ EDWARDS Basic Information Time seen: Date & time 10/24/2020 10:50:00. History source: Patient. Arrival mode: Private vehicle, walking. History of Present Illness 45-year-old female presenting to the emergency department with complaint of abdominal achiness, nausea vomiting and diarrhea. Patient indicates she has a history of Crohn's disease and this feels like a normal flareup of her Crohn's disease. She states that she was here a few weeks ago for similar issue followed up with her primary care provider. She indicates that a few weeks ago steroids did help along with Zofran but she is now out of Zofran and steroids. She did say that she took 1 Percocet earlier today which helped mildly. She states she is prescribed this medication by her primary care provider. She reports that she is from [place] visiting for Mother's Day. Patient states that she has vomited a few times along with having a few bouts of diarrhea starting yesterday. States that this is normal with her flareup along with abdominal achiness. She states this feels like one of her normal flareups denies anything abnormal. She denies having any fevers, chest pains, shortness of breath. Denies being diabetic. Does state that she has a history of diverticulosis. Review of Systems Constitutional symptoms: No fever, Skin symptoms: No rash, Eye symptoms: Vision unchanged. ENMT symptoms: No sore throat, no nasal congestion. Respiratory symptoms: No shortness of breath, no cough. Cardiovascular symptoms: No chest pain, no tachycardia. Gastrointestinal symptoms: Abdominal pain, mild, right lower quadrant, left lower quadrant, acute, achy, nausea, vomiting, diarrhea, No rectal bleeding, Genitourinary symptoms: No dysuria, no hematuria. Musculoskeletal symptoms: No back pain, no Muscle pain. Neurologic symptoms: No headache, no dizziness. Health Status Allergies: Allergic Reactions (Selected) Unknown Compazine- No reactions were documented. Contrast Dye- No reactions were documented. NSAIDs- No reactions were documented. Phenergan- No reactions were documented. Toradol- No reactions were documented.. Past Medical/ Family/ Social History Family history: No family history items have been selected or recorded.. Social history: Social & Psychosocial Habits Tobacco 10/09/2020 Smoking tobacco use: Never (less than 100 in l Electronic Cigarette/Vaping 10/09/2020 Electronic Cigarette Use: Never . Physical Examination CONST: -Obese -Acute distress: No -Vitals: reviewed. SKIN: -Gross abnormalities: No EYES: -EOM intact, KAREN: -Sclera conjunctiva: Unremarkable. ENT: -pharynx pink and moist. NECK: -Supple ([id number]): non-tender. CARD: -Rate and rhythm: Regular -Edema: No -Calf pain: No RESP: -Respiratory effort and chest excursion with respirations: Normal -Breath sounds equal bilaterally: Clear -Wheezes: No -Rales: No BACK: -Signs of pain with movement: No ABD: -Distended: No -Bruits: No -Bowel sounds: Normal. -Deep palpation: Mild achiness with palpation of lower abdomen, no guarding or rebound tenderness, abdomen is soft. EXT: Gross appearance and use of all four extremities: Unremarkable NEURO: -Patient: alert -Gross CN or Focal Neuro deficits: No -Oriented to: person, place and time. -Appearance and judgment: appropriate. Medical Decision Making 45-year-old female presenting to the emergency department complaint of Crohn's flareup. States this feels like one of her normal flareups denies anything abnormal. Denies any fevers, chest pains, shortness of breath. States she is out of her Zofran and steroids, took a Percocet earlier today. Patient is requesting IV fluids, Solu-Medrol, Zofran and a small dose of pain medication. I discussed this with her and indicated that we saw her a few weeks ago gave her pain medication at that time. I informed her I would give her another dose of pain medication but if she returns we would not give her anything else for pain she needs to follow-up with her primary care provider for this aspect. Patient's OARRS report was reviewed, Patient was given IV steroids and Zofran in the emergency department. I discussed blood work and imaging. Patient declined imaging and indicated she would be okay with basic blood work while getting IV fluids. Patient's blood work shows a glucose of 183, chloride of 98, BUN/creatinine ratio of 18, other electrolytes within normal ranges, normal lactic acid, normal lipase, normal white blood cell count, normal hemoglobin. Urinalysis shows no acute infection, negative for glucose and ketones, negative for protein, small amount of blood. I discussed these findings with the patient, she appears to be comfortable after IV medications, I again offered CT scan of abdomen pelvis she declined (more content not included)... Normal [facility] ED Note-Nursingon 10-24-2020 ED Note-Nursing Pt presenting ambulatory to ED with c/o nausea, vomiting, diarrhea, and abdominal pain worsening this morning. Pt has a hx of Crohn's. Rates pain 02/25 currently. Normal [facility] ED Patient Summaryon 021 ED Patient Summary [facility] - Emergency Department [address] [place] [address] PATIENT DISCHARGE INSTRUCTIONS Patient Information Name: NICKI OVIEDO Age: 45 Years Date of : 1975 Reason For Visit: Nausea; Vomiting; Diarrhea; ABD PAIN, NAUSEA Arrival Time: 10/24/2020 10:46:34 Primary Care Physician: Duke Velazquez Attending Physician: Maico Sykes MD Comment: Visit Diagnosis: Diagnoses This Visit Abdominal pain (R10.9) Diarrhea (R19.7) Diarrhea ([id number]) Nausea ([id number]) Nausea & vomiting (R11.2) Vomiting ([id number]) Prescription Information: If you have been given a prescription for narcotics, seek immediate medical attention if you have any difficulty breathing or any sudden status changes such as confusion and sleepiness. If you or anyone you know is experiencing suicidal thoughts, mental health, alcohol and/or drug addiction problems; contact the [facility] 08/01 Crisis Hotline -Text 4AYJJ dg 147974. If you received any narcotics, sedation, or any other medication that causes drowsiness for the next 24 hours, unless otherwise directed: ? Do not drive a car. ? Do not operate machinery such as power tools, lawn mowers, drills, sewing machines, or stoves ? Avoid alcoholic beverages and drugs for allergies, nerves, or sleep ? Do not make important personal or business decisions or sign any legal documents With: Address: When: Duke Huangjaspreetashvin [address] [place] [address] Business (1) Within 2 to 4 days Comments: Follow-up primary care provider next couple days for reevaluation. Continue with prednisone over the next few days, your normal pain medication at home along with Zofran as needed. Continue to stay hydrated. Return to the emergency department for any worsening issues. Medication Information: The exam and treatment you received today in the [facility] Emergency Department were for an urgent problem and are not intended as complete care. It is important for you to follow up with a doctor, nurse practitioner, or physician?s seismic survey assistant for ongoing care. If your symptoms become worse or you do not improve as expected and you are unable to reach your usual health care provider, you should return to the Emergency Department, we are available 24 hours a day. For those patients who have received Radiology results, the interpretation of your X-ray as given to you by our Emergency Department physician is only a preliminary report. The Radiologist will review your films and if there is a change in the diagnosis you will be notified by phone. Please make sure you have provided a working phone number so we can reach you if necessary. In the event that you had a lab culture while you were a patient in the Emergency Department, you will be notified by phone if there is a need to change your antibiotic. Please make sure you have provided a working phone number so we can reach you if necessary. [facility] Emergency Department has provided you with a complete list of medications post discharge. Please inform your stroke coordinator/provider of your visit and for further instruction on these medications. Any specific questions regarding your chronic medications and dosages should be discussed with your primary care physician(s) and/or pharmacist. New Medications Printed Prescriptions dicyclomine (Bentyl 20 mg oral tablet) 1 tab(s) Oral 4 times a day for 5 Days. Refills: 0. lactobacillus acidophilus (Acidophilus Extra Strength oral capsule) 1 cap(s) Oral every day. Refills: 0. predniSONE (predniSONE 20 mg oral tablet) 2 tab(s) Oral every day. Refills: 0. Medications to Continue That Have Not Changed Other Medications acetaminophen-oxycodo ne (Percocet 10 mg-325 mg oral tablet) 1 tab(s) Oral every 6 hours. escitalopram (Lexapro 10 mg oral tablet) 1 tab(s) Oral every day. lisinopril (lisinopril 10 mg oral tablet) 1 tab(s) Oral every day. mesalamine (mesalamine 800 mg oral delayed release tablet) 1 tab Oral 3 times a day. tiZANidine (Zanaflex 4 mg oral tablet) 2 tab(s) Oral 3 times a day. traZODone (traZODone 150 mg oral tablet) 1 tab(s) Oral At bedtime. Visit Information Allergies: Substance Reaction Symptoms Type Comments Compazine Drug NSAIDs Drug Phenergan Drug Toradol Drug Contrast Dye Other Vital Signs: Vitals and Measurements this Visit (last charted value for your 10/24/2020 visit) Vital Signs This Visit Temperature Oral: 36.8 DegC Peripheral Pulse Rate: 89 bpm Respiratory Rate: 18 br/min Systolic Blood Pressure: 141 mmHg Diastolic Blood Pressure: 71 mmHg SpO2: 98 % Oxygen Therapy: Room air Measurements This Visit Height/Length Dosin.180 cm Height/Length Estimated: 170.180 cm Weight Dosin.080 kg Weight Estimated: 136.080 kg Pro (more content not included)... Normal [facility] Extra Redon 10-24-2020 Tube Collected Yes Invalid Interpretation Code [facility] Comment on above: Performed By: #### 2 [id number], [id number], [id number], [id number], [id number], [id number] #### [facility] (DEFAULT) [address] [place] [address] Lactic Acidon 10-24-2020 Lactic Acid 17.7 mg/dL Normal 4.5-19.8 [facility] Comment on above: Performed By: #### 2 [id number] ####[facility] (DEFAULT)[address] [place] [address] Lipaseon 10-24-2020 Lipase Level 24.0 IU/L Normal 22.0-51.0 [facility] Comment on above: Performed By: #### 2 289895, [id number], [id number], [id number], 9133536, [id number] ####[facility] (DEFAULT)[address] [place] [address] UA Pbdwm8rd 10-24-2020 UA Amorph. Few [facility] Comment on above: Order Comment: Urina lysis Microscopic order added on by Discern Expert Rules system. Performed By: #### 1 [id number], [id number], [id number] #### [facility] (DEFAULT) [address] [place] [address] UA Bacteria 1+ [facility] Comment on above: Order Comment: Urina lysis Microscopic order added on by Whereoscope Expert Rules system. Performed By: #### 1 [id number], [id number], [id number] #### [facility] (DEFAULT) [address] [place] [address] UA Mucous 1+ [facility] Comment on above: Order Comment: Urina lysis Microscopic order added on by Discern Expert Rules system. Performed By: #### 1 [id number], [id number], [id number] #### [facility] (DEFAULT) [address] [place] [address] UA RBC 3-5 [facility] Comment on above: Order Comment: Urina lysis Microscopic order added on by Discern Expert Rules system. Performed By: #### 1 [id number], [id number], [id number] #### [facility] (DEFAULT) [address] [place] [address] UA Squam Epi Moderate [facility] Comment on above: Order Comment: Urina lysis Microscopic order added on by Discern Expert Rules system. Performed By: #### 1 [id number], [id number], [id number] #### [facility] (DEFAULT) [address] [place] [address] 01875 UA WBC 0-2 [facility] Comment on above: Order Comment: Urina lysis Microscopic order added on by Discern Expert Rules system. Performed By: #### 1 [id number] #### [facility] (DEFAULT) [address] [place] [address] 41037 UA w Culture if Ind Standard on 10-24-2020 Breakpoint UA [facility] Comment on above: Performed By: #### 1 [id number], [id number] #### [facility] (DEFAULT) [address] [place] [address] 60898 Color (U) Yellow [facility] Comment on above: Performed By: #### 1 [id number] #### [facility] (DEFAULT) [address] [place] [address] 72428 Culture? Indicated Invalid Interpretation Code [facility] Comment on above: Performed By: #### 1 [id number] #### [facility] (DEFAULT) [address] [place] [address] 90808 Glucose (U) [Mass/Vol] Negative [facility] Comment on above: Performed By: #### 1 [id number] #### [facility] (DEFAULT) [address] [place] [address] 94849 Ketones Ql (U) Negative [facility] Comment on above: Performed By: #### 1 [id number] #### [facility] (DEFAULT) [address] [place] [address] 69145 Micro? Indicated Invalid Interpretation Code [facility] Comment on above: Performed By: #### 1 [id number] #### [facility] (DEFAULT) [address] [place] [address] 26032 UA Bilirubin Negative [facility] Comment on above: Performed By: #### 1 [id number], [id number] #### [facility] (DEFAULT) [address] [place] [address] 89623 UA Blood SMALL Abnormal NEGATIVE [facility] Comment on above: Performed By: #### 1 [id number], [id number] #### [facility] (DEFAULT) [address] [place] [address] 23144 UA Clarity CLEAR Normal CLEAR [facility] Comment on above: Performed By: #### 1 [id number] #### [facility] (DEFAULT) [address] [place] [address] 47662 UA Leuk Est Negative Normal NEGATIVE [facility] Comment on above: Performed By: #### 1 [id number] #### [facility] (DEFAULT) [address] [place] [address] 10006 UA Nitrite Negative Normal NEGATIVE [facility] Comment on above: Performed By: #### 1 [id number] #### [facility] (DEFAULT) [address] [place] [address] 72886 UA pH 5.0 Normal 5-8 [facility] Comment on above: Performed By: #### 1 [id number], [id number], [id number] #### [facility] (DEFAULT) [address] [place] [address] 41120 UA Protein Negative Normal NEGATIVE [facility] Comment on above: Performed By: #### 1 [id number] #### [facility] (DEFAULT) [address] [place] [address] 33937 UA Spec Grav 1.025 Normal 1.001-1.035 [facility] Comment on above: Performed By: #### 1 [id number] #### [facility] (DEFAULT) [address] [place] [address] 47109 UA Urobilinogen 0.2 mg/dL Normal 0.2-1.0 [facility] Comment on above: Performed By: #### 1 [id number] #### [facility] (DEFAULT) [address] [place] [address] Urine Source Clean Catch Normal [facility] Comment on above: Performed By: #### 1 [id number], [id number], [id number] #### [facility] (DEFAULT) [address] [place] [address] 10566 Coding Summaryon 10-14-2020 Coding Summary HTMLBase 64 MlbnohxzVNh8gFw+PGhlY WQ+GM6AYODtV30mcDVbpD 2YM3mUVS2OGQNTZTVJNG3 RAB5ypJW0ETxdE2CtshBb RdhwbDKiMK89VYf1HGN1c NbwNUescR1wgTEjO2f6Xj AlOU74jM66JHrwBKCyRoR 3LjZpbjsgbWFy Y1noJaTtvFLvKav+PHRhY mxlIHdpZHRoPScxMDAlJy AicZuhAP7fBd4mYOAuKAF vbGxhcHNlOiBj r2kuNAFtKOumKO2kpWmqK 8GvdLN8ODQej9l3Cf53kQ I+JEAyINT1gYqmMWyyu52 8UzYuw8nkGDH6 wHJvBOlyKNC3K60po7J8H UKqYSNgJCU7wPE3kQ7lhF hdmylcQ9HbdTFwYyP0PGO 7jWGdnF6hyZcr hqktaH6mFei+O61THF7DT XBTTP6NSqb8Q7GtVlpusS I+RN41ECLfVQ51sNCqpDP rz1wkgRw9JnDr RSQnFVF4oGzeZFjkn6KcB HSaX73qyLZws8V4RXPaxH lyhIPmNiVseDT0mR8cXNl ajmauc8idhedr Kmdib5ygbt68iX84Y40tY YobKHCzNRW1TKDjVCOoxM ohxa8mhQ7xCx6+HBzog1p vl9kjkAn9UvYw KMWjqlGyvRqqMGA3x4CaD y58Q9HmeJwjr8HrQdx0my 34gBSql6R1xFB3ZUhcILV tcE0nDMhnOwB8 OSOoNyWzwO68aWGsJHkgI r7rpJfclAosFT4fSBYgzp teKUKwpN0zXFBpmBTpjOh sYH5zKXIgxvkf p093CxLsGXZ8PMFanISpH 4EfnF1qFiLoQCQrHGDtB4 ClhJSsGOowJ083ZAsnYcR 6LPNatbFtI5Xc XPMsyFugHxW1d0L0El7Oz 4YfsvdaQEH2DAxqBJE6Zo O0SfEsRxV0K9XgXwa4GWS ujUpxWV3sB6Tt QKGehqovlcivhQM8CFRnF JUzkN35vJCkWMzgXk2ir2 Y1y127DGJnGSXjxQ44Wd8 udDogMTBwdCBU fU0ytvvxe3haqszsEqIkL AOaKVa8YEq4CHCigBvhPo SlFYE1XmH5IVD0sQCmfJ1 hlTgiqpbigY8c Oyc+P18wxT8nLIB9FMV1t iqkBBQuoeHuHT19QW89N8 RyPjwvdGFibGU+PGRpdiB bkHtdMU1cSjIn d5oqu2HzTJogP8BiTJXzF UdvBud9YVBvXAP9zTG3qY 4lHUJzKHvqo4D8gYR9S2P soiJjyg8ri5ta OQObZTuaD33ptXSkm6H5L UNijUG9LTSlaAgrKxGjqM 93Oyc+EELdeBbxo7RhZki zw0hry9mwxXt2 NoFtFVAfxyIrrSmyWXP2d 2OyLy50X79oJErlGFMnHJ YfWBSzBXXblYfgri6poU3 wIi8+PGNvbCB3 fPQ9sX4nLYBiJqG2JVztS 114UvIpcQGdVqvth2feg0 rigAn8XfIdEJVrhlDlkEw bKBU1s8IqYv50 T49vDYvwPACbEVJbWLMoN AKivMkqhj8wcC9oAk6+PC 6wy1aisz90iJ81jGN+PHR eLQW5xLjwELzu HSPbvV8qYVyoFwH9EVGdU eSptC88rIBrALiuMo2ozT qjyYsiOB9oOGYfgcaxa30 5RcNwd3hxSYHl bTNpFMqaNDD4F64mc0C4I XHhFKEfYRQ9pRT8aM9syE lnbjogbGVmdDsgdmVydGl lGPbvKVioJ194 IHRvcDsnPlBhdGllbnQgT xFgMHo6C6GqQai3OFTyaA zdZB1kcWWyMBmgYp6ywDi ngVvtSJ5xJDKq ajhxu255NbEjh4arZBMcc LZrEFlgNFB2G75sn2S0MJ VmKWWvPPW3nYJ1oW5taLt nbjogbGVmdDsg fqDrgEubZPmqLVdzN384F HRvcDsnPkJpcnRoIERhdG J6JV72SN69bPArl5S4tJB 2I8BoZPYqugvy fptixKE1SATgDIWhvX98W x8zxVxaNj6xTYTgMZC0EF NeqDKxH0KnxT5qGhZgAWB gLQZoA5GacAXm RTvkQ812WLffLnT9SBZis zEwH1PiMRXsqYeuFpM5z6 H2In4NR6G5FJ25XJ87jVF gc5A2vMC9C9Wt AARssnuaxhnmsCA9EKNaB XIozA86Am2ieKmrSv4nCL QvPLT8HSSinRHaD3XruV3 yOiAjMDAwMDAw E3ModGUlMThjD600BPbsW dU5YPMjhvKlY9MbEKEdvK grEgV1t1N1Fn4HVFk2LW9 6AQ48iQUtf8S5 gUB5P0SkYDVeebtsaulty TE6YSQhONLgcP21Zq4fkQ zyLm1aIQNhBNV8XSKpuGC zY6SvxZ0jIaUa VNKzGKXwZ9LqeXDhBEayZ 289CGogDgF7CRPnybUzG0 BfTSIdxMdiEwJ2v7P8Nk4 YNNPaCI24IFS2 xBH0KD45VE57I8UmJhuup GFibGU+PHRhYmxlIHdpZH RoPScxMDAlJyBzdHlsZT0 nAq0wGLFsBZHt bWvrnDXhLaVac2kqGMTbP EqnCD5qtYcnU4IvbEK7DT Wew8m2Pj78F96mP3WddWD +GFBmqWP6rJF2 fQ1sKfGlXrE3HIklN320J qXobQFuBkssq9npe9appS n6BrC0AABmacTnhXwqZNR 1m7RdIq31K99g IHdpZHRoPSIxNSUiIHZhb Jzmao5vcS0jQh1+PGNvbC U6xYY4uZ6fTcYtOuJ7PTa dO906TzVlrKUp Pccfr7aot5cjyBj1JdEmM AVjncUecOakIVQ3u9VqOp 98Y9IonRlyv5IiUls2hm3 4oMOnv7L9gGU3 P7PgNSAhoqnxlNTibCdaO A0pSVXjzeavZYVpyK9hYK DrG6k0PwGmVtO3EBtbB7I oouF7DXLmuWSv AUciKYI4A83fk1K7YRDqE JLjIXE4kZK4aF5xqFvmcw ogbGVmdDsgdmVydGljYWw mFNmpX856UCTc kCbgZARqcO0mIKFlaDIrb QtdTI0aAXHjatqyVwdBFb HOAojsOQ3XPKYPLPjIAuP USDwvdGQ+PHRk NTL4vPwnGRvdLOJcfX5hZ RXoZ0l9FrEzAlO3YBomI0 YmBMOvpaubCq65eR0yAiH uXqX9KBjgH0Hx xyE6PISzqYCnRNnbEAO9Y 90vw1D5VHIqLNSdWOR6rX P9vE0laXntxyuelDNhsBy gdmVydGljYWwt YKzcC271PNIizPfvAtJnM aSmXfO1Jcc8O6AmPcv5EE BmcXfqWU1aiJYgWDxdBf9 qmMnvhUvbNL7s VIQjwnuhEVQtvT0nSOJqo ZEacCwjJN5iLTTbgmxfm2 95XvZeKZW4JYGtoCNpK3R kzM2jSxHbYHDu UXJxW0AlwUVhFFdfF003E VjpPpW1QMHnvcPgQ5AwVI FkbKttUtE9c5P4Hd70KfE ZZWFyczwvdGQ+ MZSiTWJ8fGtoDHisTSMvn Z5uJVQuW1r6ZlPlSqC5YV eqZ0QiOLKoophnUw10nI0 fWgVnTsN0FKqj B1FsgkH2HQCrqMRbZAwjL DF2F52cl6S0PTHlQANpCT A9kJX2uZ7cyZktkhlhjTK mdDsgdmVydGlj YOilNIziW720ODVsuGulW kZFTUFMRTwvdGQ+PHRkIH U9oMasUUodXKFuzE5uXPD nH3b4UjOwDnG2 LYkqP7RgVLXlsmebTj17w A6wAlYuYxH3OJpjM1Kxgs S2BEGniPZsHQnqZYV8X74 bt1T9AUJrUQZc LIC2sXS4eH3gbOfsdivmp GVmdDsgdmVydGljYWwtYW idT380UMAmoPlgUdEtEDK hCT4ywHkvoCI+ PY19jo67C1UaKkakLzb1I LVhEFI7bUD8uZ6aWRIkIL uzd8I1hYM1V8MjtfCkke8 eu0leRZQwXBsv D15mfVPge9J4SMZxfGV0J WJnnCjvCdTywA46Ygy+PG RzqAgvq9FaQqvdc4btt7n qmCk1EgCzZAAo mvKckLzvVOG5t7OuSj19T 29sIHdpZHRoPSIzMCUiIH KocJemfq9xgU4bTc1+PGN yjFU2sVV4dG4j KjXtRzC9ETivK312IhNfe BTaUxaqf4mfi3cwgVu5Wi YdNXXyqrNkoIrbLIV7h7Z yJn72I9UeiAxh v4FhWca7xk69rFCqz6K0k BW2H6LcLHMhvpmgaGKvaU ieEG0mQGJprksaNADhwE7 xOHQgU8p1NoGw TwT4BKyrZ9XfucF7WWBin IXrIGEpfYXXsS9acxrtd1 vfosmfVwKrSITsMKr6QHx 0LWFsaWduOiBs VGP9HeK6IGY4pCLmnC4ru EygysjstN9tCnv+UGh5c2 untPYbZG4tjOB9GD00LJ5 1jVIar3W2cMZ4 U2OyWDTnxcxlrnhdsLV0X WLvPNHkcG46Ci0roJejEr 2pCBWaFPA1RPGcnQRfN4E ewR9cFtNtLEAz JHAqX5EypTHvBGotM368E EryPdT1NDRaxiRcY7NbMY TnlZpmTqF9f1C8It6HEE6 2BP12NI59eVDw s8K5jOK0P7YoSKBxofrgi ebsqMV4XYInUHSdrW35Gt 2ywOxrGo7xJOEbQAM1HUA vfNXnA7NdpQ6q WiVdIEIyPCBpL0IqeCWzM JcvE528ZXreEqF8WOLked NsT8OvCQBeiTinRmG7v0N 6Hs4LVm70UI75 LW31dDJmr4D8gYD1X4PiO XEadgdntpztzXA3XYSnLX GgpU82Nc4dnJulJq0xRLB mRLJ5OMHoyWMr E1MlaP5iDdXvRHTxYKSgN 4YxsQHvTXibJ900DEdsPg E5AMFxxxFnH7CfSMCqwUc hSiK2m0K0Lj0T PBiwich6N2MuVwxkkHK+P O67WVIaFJ05wMAngIJky0 ekfDh0AbMqQCAhMKN2sDh xZTnoz4LhQOJz Y29 (more content not included)... [facility] Coding Summary HTMLBase 64 JnzighutROq1eXb+PGhlY WQ+VL7TGQFoD80meSDdqJ 0XZ6cZDA8SXMCYHEIAKR4 KIF8rtXK2ISxzZ5FafpQo JrrefSZmBV24VJg6AET7w UbaTRckbT1jlOSyS8f5Km TfGA40kZ83DBzeJVFhMvX 3LjZpbjsgbWFy P8mtGoRzpTEoEep+PHRhY mxlIHdpZHRoPScxMDAlJy ImiWwpSJ5mBm7hWRQqFAO vbGxhcHNlOiBj h8deDLBeZDhaYT7vkIdtK 9SgnRV4UIKyx9l7Qw18xE I+SXFsCAK9fGhfDGyax75 2FoIsv4heVOH6 eXOeRUvuTRI1M34px0R3U JBwNWBdHDE9jWX9mI7siL wxulkwP6CttHHxXyP9GKV 6xEYpcR3zfQtk vshiuO3gRor+Q52EAZ1DL XLILQ2UTfn2L6JlHrqocG I+GV47LVVcPM07vLAmdLF or4hvtTv5EiCh RBIbROG2pHlpDJnzo6AyX RLkZ28quSKws2E8SGZweR efmJJmViPxrRI6aO5tSVw wpyham1jmnnsg Shrcg7srqp77wF57P57bM SluWCJaZFD4AAYkMMUcvM zvgh0snS3hZd9+NOgrm6x up7vjjDc0UeDo YSRovjIbdVzxFRL3x1VmO e60V0UwvRgoe1FpAgh6xz 41hKIkx5F6vSV2TXmbFHZ tiJ0vSTovVyE4 RMYaZkSrkH06aUQcAIsxS u4tqFmhqSjjCX4yYBYayy ruRMTgwT0tBWKjmFXweYj qKA7bRLFaiqnv t932IkVkSYH7TBUkeFOkT 0GgpH3wPnGiKQSxHRWaA3 LqhTBeTDjyB849SXlbJkR 3KXAhizQvJ0Bj AXLrwThbCaG5b1Q7Mq2My 9NmnwogWIU3AFzkXIF9Ea H2IpAvCfO3X3JdRoy3DDS gmLyxGJ8yG8Xz EZSygoqpygudmHO8WMRzS TOmrL90vYVtBGadTz3ut1 C4o743VAYlFIUldL77Qs3 udDogMTBwdCBU nM8kntofx7lqyhelKbBjV HDkMVc7MEy6OOFmvEvrIu JsNZH3LgZ1SHJ3pEElqA1 ygVbykxlffG3z Oyc+G55rxL1uMIE7OSB3i bakKMDhivKcOH28LU84S6 RyPjwvdGFibGU+PGRpdiB wxAjkUJ7hCbNm f0udz2DyNUqmP3IyNEQhQ JoiDfl9BIArUQN1uAY5tT 5lURMcVHpgu4I4lPK8A1Q bnlQiky5sx5bp TOXcZMhsY73btVYcc6L1D AEtwEE8BDYzbUxuKyOdgR 93Oyc+YIYoiLmxs0BlIjw dj8lsn1xetGc4 XkOuCXAlffAorTyxOXB8o 1WiYa50N62yONsyCRXgQI LxNTRoEYCptWrsvr1niY2 wIi8+PGNvbCB3 dVU0fK9zGMNjBzF3DCptB 091TyIyzUAcEfieh1dnh4 zdoOk8FsGdAYZihwNoyAk tDUJ9w0QwLo06 H21gCFyoVWAkKJFbTZSgL YTafSuyja7mnB9wOh6+PC 4yh9rrwu85jO48tLQ+PHR mWMJ1tFksGZdz QXOjfU2yUEsjWcK5GJNlE sQiuH02sXQsCMpgJu1edV vcpFvqXI9wMDYcndwkv70 2QiMds8anHRHc uAOeUNfgSGF7U05cj9Y7Y MUcLCHzIUL0dEL9uE0szP lnbjogbGVmdDsgdmVydGl sJTbnYQpiZ770 IHRvcDsnPlBhdGllbnQgT jClQYs8M7HkCgs2JPNegK duUQ7bcJMsGUppTi2xcYm flRulDP7tFFZk tdsea677VeFgf3chECFnx PHwZOsfPPV2Y75hj9B3BZ IvMHLsHDY7eCG9wG8uoPm nbjogbGVmdDsg raDmlAphSNxiQCtzN726P HRvcDsnPkJpcnRoIERhdG T3CY67NZ26jKZop5O6uFJ 9L3TjCSYrsjpy lyzelMQ8HGZjEZUzvN96I k1ktJjaQa9zYGDpPJF5IK UdyQJvT9HckO1bNaZoTXW pRPKpY5EyvDDn TKdtI232JMhmGvY3LMStm sGgA9PkRMHavUzmWgX0j8 A5Gf8ZB8A3AW73CD12sXZ bs7Y9dKQ8J0Lq RZOdtsqffkcboAK0YSDjD PZcqJ21Bt2rjEjxHw2gOP DkGII9QPSdvAYsU1HutB4 yOiAjMDAwMDAw C2JvqQPkIMjjA035KNnfH fH0DQOvcuJgU7SiYSDfmN gyYcR5h0I2Rp9NWLx6YP8 0LS62lWXqw2Q1 gQY7M4LnSCNdexvlctdqm QF4GQHvTZGniB38Vn0dqB ypNc8bHCDtCRR1GYPmvFX hX9FhnB3eYqPl XYVfRFByF3KhhAGoVNwsL 423VRyfSuD4GZCwvuMpF1 TeNJPayXxiFeI7z1U6Fi5 SHYLxNX73PCQ6 hBF3MJ06ER61N4JxXwyog GFibGU+PHRhYmxlIHdpZH RoPScxMDAlJyBzdHlsZT0 fZf2xYKWiNPWw sUtkrPCkGoUym5seCQUvB JylHY9afMwtZ6HxsSL2WV Qjq2v1Qp73O85dD8YqpAB +NTReeKJ7mNS5 hR7tBnYnFsM3YFrpY165Q zSwvGUpUvfes9kuo2fnpJ l1KiI7VEVzeaYqrRbaRKE 4u1UjCi92R78l IHdpZHRoPSIxNSUiIHZhb Saews6aeW6hFm3+PGNvbC K1zRQ9aK2gUaXoCqL2QUd lC363RxVqlFCg Keztt2xxh0wnyLv7DzAfX LCbljWsqNklQHA3z0PlKa 50W2JchZzju2YfFzb4ue4 9hQJfi7B4eTW8 V7UcDQIultojiUEmjXzmH L2sSWPzujwaDFXfpE0mIC JjT9m7UtIzYzG8KSxaV4F wfcF9ISLgaYNs PMdzGCL5B95is7O3OZNlD TBgKDB5sQK2iC8jjIoenh ogbGVmdDsgdmVydGljYWw fYMgdT068GNWe gZvwUIMrvZ7eLEVjzHTif YtgHR0lXCXtwknfQdpZMv LQPbayPZ8TCPXZQBnLPdY USDwvdGQ+PHRk HZP1xFycHWosDIXfhM6oP VToI6l7DfTxSyI5LPnlF4 PaQGMptbfrUf46wN6hWyX oGrI2DUgcS1Ml zfJ9KYEjpUHpQPxiHOL2T 92ga3G7SBTlMCXtEYH2iA M7pN2kjMuntvupvHNkxBn gdmVydGljYWwt WQjoL449EWMdgFqaLxRyF zWoGxR8Hlg0N0PwTnk8AP MicSrwKH3erDTfELglIl6 hbEdzpHhhHX9q XGKidqhvFKJugW3kXFAzy CRnyLycKM6mBUSfbxcyf6 00UjYwUGA5IHGhvVKmU5N pmU6jAjCzASHb XEUeS3QbcKGyBHtgC661S MhaEnW9GFCpruOnU3KmWU IynZctRpN6p1O5Fn45FeP ZZWFyczwvdGQ+ MNNeUGS6dZjfTFdvRLDnr A5oIHJxG9g1NeWiJqH1UJ cxE0TrQPKxfvcmJi02cC5 uQjNfBkO0MSgd W6VxvhP3BBXiqWAwWGovP PS9U50cb2N2JFJuPXUeJD Z3vIB4hL8kdCgllthgyJQ mdDsgdmVydGlj AFjvOTvaH945AHVoiGfsQ kZFTUFMRTwvdGQ+PHRkIH B0wXjrWXhwWGJckS4tSXT mE7w1XuBdGeW6 LYzgQ8MeBLGnsikhPf83c Z5iAiGmSyW3COqwP2Sjqe Q8TSCrsUSmYQfeORZ7W52 il2N4EHNlQTVq CBD4qPM6xX6bhLftdoulj GVmdDsgdmVydGljYWwtYW hmV533VFSefGesAxUeICU rOA3esKhoqMD+ YE85cw72J1FcIypbEhu6E GNtEWH6hUZ1rW7sHXFcXG rca2B0yID5L9PunkFexn7 ph0euUGJpLNlx V32eyRCvo6U8ULNylTR6F NXuuPwfUpMovI95Aae+PG OfyHxyh2DzZnbtl7bxn2g ybJc5RgUcPYVy hxZfwNjeUHE5n4FfZl84V 29sIHdpZHRoPSIzMCUiIH EuqMhuua0iiW5eWe0+PGN vyGI2yQW7pX6j CbHkRhX8HCcpK080GzAcr WSlJlpqj3ukz8efgHr5Hl GlHHEejzXpcBrjAOJ1k3J dEc28Y4AqhTwd v3OqViu3sn43dXEpq3W1a DJ5M4VpQFAodizyxWOoxR roWP7gYUKjteoyYHSyqX0 aXIHyJ6u1WeEx XjN0QPbjJ4BcakI8OUHhf MYpGAOqhWVCeJ3suapug6 bvnnjxIhRrRFKvMFc0OPv 0LWFsaWduOiBs RIQ5ThG0CNM8qVTgiG5kb CbxsfcicK8dKyf+UGh5c2 edrEWcWA4ibWS2VX98SZ1 6pSKnx0X0sSV3 W8RtUIWlzsmbpvqcvXI7T SLrCIRysR48En6yoAkiHz 6rAYSjYEW4ZMIrwJWqS5V xnH2uWeMoPEIc GNYjY3IhbBXcTImrH356C ZynXjF3HCLrhmCuM1GkAJ YvcHpgEwV7i4F5Vj6BXQ7 5UH84UW86uPCa n4V0yAD9X9VwDLHypiipt wiehCD3EBIvALPvuW42Hv 5muIukEu5rDBPsZEU9MVD maMReO1BfsW8e WcNjUDFlVJNnJ7LtiPBvL DmlM371QCnpIiA5RAVipv NuO5BoZZYcnUapPsJ6p6V 6Ds6GSf05FU82 DZ27xQCuz5S9vWP0L0NcP IYfxmblmjhatFU5IXKeHH GxeD99Cp7lqUaqCj6yFRJ hEZY1GMUojGCa N2XrcM6cUwKmNGWwXRKqO 8LskPXrWEcyE866UXcsJd L8PZRoweSpY9XjDJRueHj oXqA9p1F4Ed5X VShhhzk2V4QpGjhymRC+P M50XKAsGM25eMNosPMjk9 ckcJd0AdHpURHrJFW9sBs vRObik7QcPXJl Y29 (more content not included)... Normal [facility] .Auto Diff 1on 10-09-2020 Auto [place] % 9 % Normal -12 [facility] Comment on above: Performed By: #### 7 713313, 25120187, 9213122, [id number], 9879896 ####[facility] (DEFAULT)[address] [place] [address] 42003 Baso Abs# 0.0 x10 Normal 0.0-0.2 [facility] Comment on above: Performed By: #### 7 315047, 78310834, 2612845, [id number], 7991422 ####[facility] (DEFAULT)[address] [place] [address] 06871 Basophils/100 WBC (Bld) 0.2 % Normal 0.2-2.0 [facility] Comment on above: Performed By: #### 7 040360, 73392807, 1279441, [id number], 7885521 ####[facility] (DEFAULT)[address] [place] [address] 45995 Eos Abs# 0.2 x10 Normal 0.0-0.4 [facility] Comment on above: Performed By: #### 7 272821, 79154185, 5027370, [id number], 9914288 ####[facility] (DEFAULT)[address] [place] [address] 48524 Eosinophils/100 WBC (Bld) 1.8 % Normal 0.9-4.0 [facility] Comment on above: Performed By: #### 7 476921, 34450690, 6763383, [id number], 4746286 ####[facility] (DEFAULT)[address] [place] [address] 17246 Lymph Abs# 2.6 x10 Normal 1.3-2.9 [facility] Comment on above: Performed By: #### 7 018276, 83655462, 6358628, 2214793542, 1301099 ####[facility] (DEFAULT)[address] [place] [address] 97001 Lymphocytes/100 WBC (Bld) 28 % Normal 14-48 [facility] Comment on above: Performed By: #### 7 399013, 77969644, 2231769, [id number], 6238735 ####[facility] (DEFAULT)[address] [place] [address] 87505 [place] Abs# 0.9 x10 High 0.0-0.8 [facility] Comment on above: Performed By: #### 7 705219, 72773649, 4726473, [id number], 7712939 ####[facility] (DEFAULT)[address] [place] [address] 95599 Neut Abs# 5.7 x10 Normal 1.5-9.2 [facility] Comment on above: Performed By: #### 7 843595, 97268758, 2329872, 3063425866, 3054250 ####[facility] (DEFAULT)[address] [place] [address] 36728 Neutrophils/100 WBC (Bld) 61 % Normal 44-88 [facility] Comment on above: Performed By: #### 7 735030, 71446274, 1827103, [id number], 9245902 ####[facility] (DEFAULT)[address] [place] [address] 01851 Amylaseon 10-09-2020 Amylase [Catalytic activity/Vol] 42.0 U/L Normal 28.0-100.0 [facility] Comment on above: Performed By: #### 7 803371, 93517964, 4955595, 2744937601, 5753687 ####[facility] (DEFAULT)[address] [place] [address] CBC w/ Auto Diffon Erythrocyte distribution width (RBC) [Ratio] 13.1 % Normal 11.5-15.0 [facility] Comment on above: Performed By: #### 7 642194, 08703013, 9215448, [id number], 7937450 ####[facility] (DEFAULT)[address] [place] [address] Hematocrit (Bld) [Volume fraction] 39.5 % Normal 33.7-40.4 [facility] Comment on above: Performed By: #### 7 638939, 81323038, 2328490, 2161254819, 7963158 ####[facility] (DEFAULT)[address] [place] [address] Hemoglobin (Bld) [Mass/Vol] 13.1 g/dL Normal 11.3-15.9 [facility] Comment on above: Performed By: #### 7 059136, 59070020, 2317469, 7598625242, 1880517 ####[facility] (DEFAULT)[address] [place] [address] Instr WBC 9.4 x10 Invalid Interpretation Code [facility] Comment on above: Performed By: #### 7 762309, 10169562, 4478608, [id number], 1558357 ####[facility] (DEFAULT)[address] [place] [address] Man Diff? Auto Normal [facility] Comment on above: Performed By: #### 7 627599, 74943016, 0045825, 7487744360, 4731810 ####[facility] (DEFAULT)[address] [place] [address] MCH (RBC) [Entitic mass] 30 pg Normal 24-34 [facility] Comment on above: Performed By: #### 7 080897, 99543551, 8107775, 5228579803, 6557253 ####[facility] (DEFAULT)[address] [place] [address] MCHC (RBC) [Mass/Vol] 33 g/dL Normal 26-37 [facility] Comment on above: Performed By: #### 7 684336, 88258209, 6125890, 8945667395, 6628407 ####[facility] (DEFAULT)[address] [place] [address] MCV (RBC) [Entitic vol] 91 fL Normal 81-100 [facility] Comment on above: Performed By: #### 7 486402, 47072136, 9233584, [id number], 4744925 ####[facility] (DEFAULT)[address] [place] [address] Platelet 298 x10 Normal 138-427 [facility] Comment on above: Performed By: #### 7 309699, 89748700, 2321153, 2648479116, 3493544 ####[facility] (DEFAULT)[address] [place] [address] Platelet mean volume (Bld) [Entitic vol] 9.1 fL Normal 6.3-10.2 [facility] Comment on above: Performed By: #### 7 020476, 44911159, 5477820, 0876834643, 7618473 ####[facility] (DEFAULT)[address] [place] [address] RBC 4.34 x10 Normal 3.70-5.30 [facility] Comment on above: Performed By: #### 7 749748, 13725177, 5577671, 3814559385, 6067021 ####[facility] (DEFAULT)[address] [place] [address] WBC 9.4 x10 Normal 3.5-10.5 [facility] Comment on above: Performed By: #### 7 125441, 96826920, 1975798, 1861926676, 7711126 ####[facility] (DEFAULT)[address] [place] [address] CMP Standardon 10-09-2020 eGFR Non AA >60 Invalid Interpretation Code [facility] Comment on above: Performed By: #### 7 476115, 57830531, 8914633, 2167319477, 5135297 ####[facility] (DEFAULT)[address] [place] [address] eGFR AA >60 Invalid Interpretation Code [facility] Comment on above: Result Comment: [employer] chris Kidney disease could be indicated at eGFRs of less than 60 ml/min/1.73m2. Kidney Failure is indicated at less than 15 ml/min/1.73m2 Performed By: #### 7 512239, 27601021, 4144416, 9778729179, 5833185 ####[facility] (DEFAULT)[address] [place] [address] Albumin [Mass/Vol] 3.4 g/dL Low 3.5-5.0 [facility] Comment on above: Performed By: #### 7 687964, 80711697, 0451739, 0300771151, 6748021 ####[facility] (DEFAULT)[address] [place] [address] Albumin/Globulin [Mass ratio] 0.9 {ratio} Low 1.4-2.6 [facility] Comment on above: Performed By: #### 7 432266, 71916219, 0290437, 8765411896, 1308791 ####[facility] (DEFAULT)[address] [place] [address] 97662 Alk Phos 62 IU/L Normal 32-91 [facility] Comment on above: Performed By: #### 7 108732, 18437368, 7495645, 9165983513, 5967382 ####[facility] (DEFAULT)[address] [place] [address] 75789 ALT [Catalytic activity/Vol] 25.0 U/L Normal 14.0-54.0 [facility] Comment on above: Performed By: #### 7 712313, 75137714, 3290582, 4539235064, 6762439 ####[facility] (DEFAULT)[address] [place] [address] 85443 Anion gap [Moles/Vol] 14.0 mmol/L Normal 5.0-19.0 [facility] Comment on above: Performed By: #### 7 778736, 84925054, 5993975, 0249848602, 2824168 ####[facility] (DEFAULT)[address] [place] [address] 77498 AST [Catalytic activity/Vol] 15 U/L Normal 15-41 [facility] Comment on above: Performed By: #### 7 657610, 48810340, 1507767, 1970312479, 9683304 ####[facility] (DEFAULT)[address] [place] [address] 04163 Bili Total 0.5 mg/dL Normal 0.3-1.2 [facility] Comment on above: Performed By: #### 7 679322, 81474783, 2871773, 7834137438, 6025733 ####[facility] (DEFAULT)[address] [place] [address] 35937 Calcium [Mass/Vol] 9.1 mg/dL Normal 8.9-10.3 [facility] Comment on above: Performed By: #### 7 442157, 85719364, 0408534, 2989775781, 3554841 ####[facility] (DEFAULT)[address] [place] [address] 76244 Chloride [Moles/Vol] 96 mmol/L Low 101-111 [facility] Comment on above: Performed By: #### 7 300610, 63268609, 0310773, 6294142912, 8086803 ####[facility] (DEFAULT)[address] [place] [address] 79929 CO2 [Moles/Vol] 28 mmol/L Normal 21-32 [facility] Comment on above: Performed By: #### 7 386019, 69439824, 5500591, 3228504134, 3740809 ####[facility] (DEFAULT)[address] [place] [address] [id number] Creatinine [Mass/Vol] 0.98 mg/dL Normal 0.60-1.30 [facility] Comment on above: Performed By: #### 7 [id number], [id number], [id number], [id number], [id number] ####[facility] (DEFAULT)[address] [place] [address] 21194 Globulin (S) [Mass/Vol] 3.6 g/dL Normal 1.5-4.3 [facility] Comment on above: Performed By: #### 7 [id number], [id number], [id number], [id number], [id number] ####[facility] (DEFAULT)[address] [place] [address] 25990 Glucose [Mass/Vol] 141.0 mg/dL High 74.0-118.0 [facility] Comment on above: Performed By: #### 7 [id number], [id number], [id number], [id number], [id number] ####[facility] (DEFAULT)[address] [place] [address] 65675 Osmolality 271 mOsm/L Invalid Interpretation Code [facility] Comment on above: Performed By: #### 7 [id number], [id number], [id number], [id number], [id number] ####[facility] (DEFAULT)[address] [place] [address] 06351 Potassium [Moles/Vol] 4.2 mmol/L Normal 3.6-5.1 [facility] Comment on above: Performed By: #### 7 [id number], [id number], [id number], [id number], [id number] ####[facility] (DEFAULT)[address] [place] [address] 25116 Protein [Mass/Vol] 7.0 g/dL Normal 6.5-8.1 [facility] Comment on above: Performed By: #### 7 [id number], [id number], 9194230, [id number], [id number] ####[facility] (DEFAULT)[address] [place] [address] 64716 Sodium [Moles/Vol] 134.0 mmol/L Low 136.0-144.0 [facility] Comment on above: Performed By: #### 7 788062, [id number], [id number], [id number], [id number] ####[facility] (DEFAULT)[address] [place] [address] 24018 Urea nitrogen [Mass/Vol] 15 mg/dL Normal 8-26 [facility] Comment on above: Performed By: #### 7 089138, [id number], [id number], [id number], [id number] ####[facility] (DEFAULT)[address] [place] [address] Urea nitrogen/Creatinine [Mass ratio] 15.0 mg/mg Normal 4.6-16.2 [facility] Comment on above: Performed By: #### 7 [id number], [id number], [id number], [id number], [id number] ####[facility] (DEFAULT)[address] [place] [address]1948 ED Clinical Summaryon 2020 ED Clinical Summary [facility] Emergency Department [address] [place] [address] ED Clinical Summary PERSON INFORMATION Name: NICKI OVIEDO Age: 45 Years Sex: FEMALE : 1975 MRN: Acct#: Visit Reason: Vomiting; ABDOMINAL PAIN Arrival: 10/09/2020 00:47:50 Discharge: 10/09/2020 03:47:00 LOS: 000 03:00 Check In: 10/09/2020 00:47:50 Checkout:10/09/2020 03:47:00 Address: [address] [place] [id number] PCP: Provider, Unlisted PROVIDER INFORMATION Provider Role Assigned Unassigned Mendoza Robertson MD ED Provider 10/09/2020 00:50:03 Ayesha Carey RN ED Nurse 10/09/2020 00:50:41 VITALS INFORMATION Vital Sign Triage Latest Temperature Tympanic Temperature Temporal Artery Pulse Rate 88 bpm 85 bpm O2 Sat 96 % 96 % Respiratory Rate 20 br/min 20 br/min Blood Pressure /103 mmHg /103 mmHg MEDICAL INFORMATION Medications Given: Medication Dose Route famotidine 20 mg IV Push Sodium Chloride 0.9% intravenous solution 1000 mL Initial Volume 1000 mL/hr IV Other - See Comments ondansetron 4 mg IV Push HYDROmorphone 1 mg IV Push methylPREDNISolone 125 mg IM ondansetron 4 mg IV Push HYDROmorphone 0.5 mg IV Push Allergy Information: NSAIDs; Contrast Dye; Compazine; Phenergan; Toradol PHYSICIAN DOCUMENTATION Patient: NICKI OVIEDO Age: 45 years Sex: FEMALE : 1975 Associated Diagnoses: Abdominal pain; Exacerbation of Crohn's disease Author: Mendoza Robertson MD Basic Information Time seen: Date & time 10/09/2020 00:58:00. History source: Patient. Arrival mode: Private vehicle. History limitation: None. History of Present Illness This 45-year-old Crohn's patient has a flareup for the last 3 to 4 days which is typical of the flareup she has had. This is characterized by abdominal pain and vomiting with Crohn's she has had no resections but has had multiple problems and recently got through with a course of steroids, ended for 5 days ago. She normally has steroids and Zofran prescribed for her flareups and she lives out of town. She is not a diabetic. Does not smoke. There is no fever cough and no Covid symptoms. She is vaccinated against Covid Review of Systems Constitutional symptoms: no Fatigue, no fever, no chills. Skin symptoms: Negative except as documented in HPI. ENMT symptoms: Negative except as documented in HPI. Respiratory symptoms: Negative except as documented in HPI. Cardiovascular symptoms: Negative except as documented in HPI. Gastrointestinal symptoms: Negative except for documented as above in the HPI as above abdominal pain vomiting Genitourinary symptoms: Negative except as documented in HPI. Musculoskeletal symptoms: Negative except as documented in HPI. Neurologic symptoms: Negative except as documented in HPI. Remainder of 10 systems, all negative except for mentioned above Health Status Allergies: No active allergies have been recorded.. Medications: (Selected) Inpatient Medications Ordered Dilaudid: 1 mg = 1 mL, IV Push, Once Pepcid: 20 mg = 2 mL, IV Push, Once SOLU-Medrol: 125 mg = 2 mL, IM, Once Sodium Chloride 0.9% intravenous solution 1,000 mL: 1,000 mL/hr, IV Zofran: 4 mg = 2 mL, IV Push, Once. Past Medical/ Family/ Social History Medical history: No active or resolved past medical history items have been selected or recorded.. Social history: Social & Psychosocial Habits No Data Available . Problem list: No qualifying data available . Physical Examination CONST: -Well-developed well-nourished ; -In no acute distress. -Vitals reviewed. EYES: -EOM intact, KAREN: -Sclera normal and conjunctiva: clear bilaterally. ENT: - Normal pharynx pink and moist. NECK: -Supple ([id number]). CARD: -Rate and rhythm: Regular -Murmurs: No RESP: -Respiratory effort and chest excursion with respirations: Normal -Breath sounds equal bilaterally: Clear -Wheezes: No -Rales: No BACK: -Flank pain: No -Pain on palpation: No ABD: -Distended: No -Bruits: No -Bowel sounds: Normal. -Deep palpation: Non-tender -Organomegaly palpable: No -Abnormal masses: No EXT: Gross appearance and use of all four extremities: Normal SKIN: -Good turgor warm and dry. -Apparent lesions or rashes: No NEURO: -Patient: alert -Oriented to: person, place and time. -Appearance and judgment: appropriate. -Cranial Nerves: Normal. -Speech: Normal Medical Decision Making Patient felt better at the time of discharge, she will go home to her home town so she can be seen by her primary doctor on Sunday and she will go to the local emergency room where she normally gets admitted for Crohn's if she gets worse over the weekend Impression and Plan Diagnosis Abdominal pain (ECJ17-AG R10.9, Discharge, Medical) Exacerbation of Crohn's disease (NLV89-GQ K50.90, Discharge, Medical) Plan Condition: Improved. Disposition: Discharged: Time 10/09/2020 02:05:00, to home. (more content not included)... Normal [facility] ED Note - Physicianon 2020 ED Note - Physician Patient: NICKI OVIEDO Age: 45 years Sex: FEMALE : 1975 Associated Diagnoses: Abdominal pain; Exacerbation of Crohn's disease Author: Mendoza Robertson MD Basic Information Time seen: Date & time 10/09/2020 00:58:00. History source: Patient. Arrival mode: Private vehicle. History limitation: None. History of Present Illness This 45-year-old Crohn's patient has a flareup for the last 3 to 4 days which is typical of the flareup she has had. This is characterized by abdominal pain and vomiting with Crohn's she has had no resections but has had multiple problems and recently got through with a course of steroids, ended for 5 days ago. She normally has steroids and Zofran prescribed for her flareups and she lives out of town. She is not a diabetic. Does not smoke. There is no fever cough and no Covid symptoms. She is vaccinated against Covid Review of Systems Constitutional symptoms: no Fatigue, no fever, no chills. Skin symptoms: Negative except as documented in HPI. ENMT symptoms: Negative except as documented in HPI. Respiratory symptoms: Negative except as documented in HPI. Cardiovascular symptoms: Negative except as documented in HPI. Gastrointestinal symptoms: Negative except for documented as above in the HPI as above abdominal pain vomiting Genitourinary symptoms: Negative except as documented in HPI. Musculoskeletal symptoms: Negative except as documented in HPI. Neurologic symptoms: Negative except as documented in HPI. Remainder of 10 systems, all negative except for mentioned above Health Status Allergies: No active allergies have been recorded.. Medications: (Selected) Inpatient Medications Ordered Dilaudid: 1 mg = 1 mL, IV Push, Once Pepcid: 20 mg = 2 mL, IV Push, Once SOLU-Medrol: 125 mg = 2 mL, IM, Once Sodium Chloride 0.9% intravenous solution 1,000 mL: 1,000 mL/hr, IV Zofran: 4 mg = 2 mL, IV Push, Once. Past Medical/ Family/ Social History Medical history: No active or resolved past medical history items have been selected or recorded.. Social history: Social & Psychosocial Habits No Data Available . Problem list: No qualifying data available . Physical Examination CONST: -Well-developed well-nourished ; -In no acute distress. -Vitals reviewed. EYES: -EOM intact, KAREN: -Sclera normal and conjunctiva: clear bilaterally. ENT: - Normal pharynx pink and moist. NECK: -Supple ([id number]). CARD: -Rate and rhythm: Regular -Murmurs: No RESP: -Respiratory effort and chest excursion with respirations: Normal -Breath sounds equal bilaterally: Clear -Wheezes: No -Rales: No BACK: -Flank pain: No -Pain on palpation: No ABD: -Distended: No -Bruits: No -Bowel sounds: Normal. -Deep palpation: Non-tender -Organomegaly palpable: No -Abnormal masses: No EXT: Gross appearance and use of all four extremities: Normal SKIN: -Good turgor warm and dry. -Apparent lesions or rashes: No NEURO: -Patient: alert -Oriented to: person, place and time. -Appearance and judgment: appropriate. -Cranial Nerves: Normal. -Speech: Normal Medical Decision Making Patient felt better at the time of discharge, she will go home to her home town so she can be seen by her primary doctor on Sunday and she will go to the local emergency room where she normally gets admitted for Crohn's if she gets worse over the weekend Impression and Plan Diagnosis Abdominal pain (MHA61-NP R10.9, Discharge, Medical) Exacerbation of Crohn's disease (TWR67-AG K50.90, Discharge, Medical) Plan Condition: Improved. Disposition: Discharged: Time 10/09/2020 02:05:00, to home. Prescriptions: Launch prescriptions Pharmacy: Percocet 5/325 oral tablet (Prescribe): 1 tab(s), PO, q4hr, PRN: for pain, 20 tab(s), 0 Refill(s). Patient was given the following educational materials: Abdominal Pain, Adult, Crohn's Disease. Follow up with: ; Primary doctor on Sunday to your local emergency department if you get worse over the weekend Within 2 to 4 days. Counseled: Patient, Regarding diagnosis, Regarding diagnostic results, Regarding treatment plan, Regarding prescription, Patient indicated understanding of instructions. [Electronically Signed on: 10/09/2020 02:17 EDT] Mendoza Robertson MD [Verified on: 10/09/2020 02:17 EDT] Mendoza Robertson MD [facility] ED Note-Nursingon 10-09-2020 ED Note-Nursing Patient arrives to E R via car with c/o abdominal pain. Patient states I have crohn's disease. I just finished a weeks worth of steroids. I was on steroids for 5 days. I'm having a flare up. I have been vomiting all night Patient denies any problems with drinking fluids or eating. Patient denies any issues with urinating or having bowel movements. Patient ambulated to ER room 8. Normal [facility] ED Patient Summaryon 021 ED Patient Summary [facility] - Emergency Department [address] [place] [address] PATIENT DISCHARGE INSTRUCTIONS Patient Information Name: NICKI OVIEDO Age: 45 Years Date of : 1975 Reason For Visit: Vomiting; ABDOMINAL PAIN Arrival Time: 10/09/2020 00:47:50 Primary Care Physician: Provider, Unlisted Attending Physician: Mendoza Robertson MD Comment: Visit Diagnosis: Diagnoses This Visit Abdominal pain (R10.9) Exacerbation of Crohn's disease (K50.90) Vomiting ([id number]) Prescription Information: If you have been given a prescription for narcotics, seek immediate medical attention if you have any difficulty breathing or any sudden status changes such as confusion and sleepiness. If you or anyone you know is experiencing suicidal thoughts, mental health, alcohol and/or drug addiction problems; contact the [facility] 08/01 Crisis Hotline -Ctyv 2ZJYN ek [phone]. If you received any narcotics, sedation, or any other medication that causes drowsiness for the next 24 hours, unless otherwise directed: ? Do not drive a car. ? Do not operate machinery such as power tools, lawn mowers, drills, sewing machines, or stoves ? Avoid alcoholic beverages and drugs for allergies, nerves, or sleep ? Do not make important personal or business decisions or sign any legal documents With: Address: When: Primary doctor on Sunday to your local emergency department if you get worse over the weekend Within 2 to 4 days Medication Information: The exam and treatment you received today in the [facility] Emergency Department were for an urgent problem and are not intended as complete care. It is important for you to follow up with a doctor, nurse practitioner, or physician?s seismic survey assistant for ongoing care. If your symptoms become worse or you do not improve as expected and you are unable to reach your usual health care provider, you should return to the Emergency Department, we are available 24 hours a day. For those patients who have received Radiology results, the interpretation of your X-ray as given to you by our Emergency Department physician is only a preliminary report. The Radiologist will review your films and if there is a change in the diagnosis you will be notified by phone. Please make sure you have provided a working phone number so we can reach you if necessary. In the event that you had a lab culture while you were a patient in the Emergency Department, you will be notified by phone if there is a need to change your antibiotic. Please make sure you have provided a working phone number so we can reach you if necessary. [facility] Emergency Department has provided you with a complete list of medications post discharge. Please inform your stroke coordinator/provider of your visit and for further instruction on these medications. Any specific questions regarding your chronic medications and dosages should be discussed with your primary care physician(s) and/or pharmacist. New Medications Printed Prescriptions acetaminophen-oxycodo ne (Percocet 5/325 oral tablet) 1 tab(s) Oral Every 4 hours as needed for pain. Refills: 0. predniSONE (predniSONE 20 mg oral tablet) 2 tab(s) Oral every day for 7 Days. Refills: 0. Visit Information Allergies: Substance Reaction Symptoms Type Comments Compazine Drug NSAIDs Drug Phenergan Drug Toradol Drug Contrast Dye Other Vital Signs: Vitals and Measurements this Visit (last charted value for your 10/09/2020 visit) Vital Signs This Visit Temperature Oral: 36.7 DegC Peripheral Pulse Rate: 85 bpm Respiratory Rate: 20 br/min Systolic Blood Pressure: 138 mmHg Diastolic Blood Pressure: 96 mmHg SpO2: 96 % Oxygen Therapy: Room air Measurements This Visit Height/Length Dosin.180 cm Height/Length Estimated: 170.180 cm Weight Dosin.080 kg Weight Estimated: 136.080 kg Problems List: Problem Onset Comments No Problems found Patient Education Crohn's Disease Crohn's disease is a long-lasting (chronic) disease that affects the gastrointestinal (GI) tract. Crohn's disease often causes irritation and inflammation in the small intestine and the beginning of the large intestine, but it can affect any part of the GI tract. Crohn's disease is part of a group of illnesses that are known as inflammatory bowel disease (IBD). Crohn's disease may start slowly and get worse over time. Symptoms may come and go. They may also go away for months or even years at a time (remission). What are the causes? The exact cause of this condition is not known. It may involve a response that causes your body's disease-fighting (immune) system to attack healthy cells and tissues (autoimmune response). Bacteria, genes, and your environment may also play a role. What increases the risk? The foll (more content not included)... Normal [facility] Lipaseon 10-09-2020 Lipase Level 29.0 IU/L Normal 22.0-51.0 [facility] Comment on above: Performed By: #### 7 [id number], [id number], [id number], [id number], [id number] ####[facility] (DEFAULT)[address] [place] [address] CBC W/DIFFon 09-30-2020 ABS IMM GRANS 0.0 10*3/uL Normal 0.0-0.2 [facility] Comment on above: Performed By: #### 5 0103 #### [facility] [address] ABS NEUTROPHILS 4.0 10*3/uL Normal 1.6-7.6 [facility] Comment on above: Performed By: #### 5 0103 #### [facility] [address] Basophils (Bld) [#/Vol] 0.0 10*3/uL Normal 0.0-0.2 [facility] Comment on above: Performed By: #### 5 0103 #### [facility] [address] Basophils/100 WBC (Bld) 0.6 % Normal 0.0-1.0 T [facility] Comment on above: Performed By: #### 5 0103 #### [facility] [address] Eosinophils (Bld) [#/Vol] 0.1 10*3/uL Normal 0.0-0.5 [facility] Comment on above: Performed By: #### 5 0103 #### [facility] [address] [place] [address], [facility] Eosinophils/100 WBC (Bld) 1.5 % Normal 0.0-6.0 [facility] Comment on above: Performed By: #### 3 #### [facility] [address] Erythrocyte distribution width (RBC) [Ratio] 12.6 % Normal 11.5-15.0 [facility] Comment on above: Performed By: #### 102 #### [facility] [address] Hematocrit (Bld) [Volume fraction] 36.4 % Normal 36.0-45.0 [facility] Comment on above: Performed By: #### 3 #### [facility] [address] Hemoglobin (Bld) [Mass/Vol] 12.2 g/dL Normal 12.0-15.0 [facility] Comment on above: Performed By: #### 3 #### [facility] [address] IMMATURE GRANS 0.3 % Normal 0.0-1.0 [facility] Comment on above: Performed By: #### 5 3 #### [facility] [address] [place] [address], [facility] Lymphocytes (Bld) [#/Vol] 2.3 10*3/uL Normal 1.2-4.0 [facility] Comment on above: Performed By: #### 3 #### [facility] [address] [facility] [place] [address], [facility] Lymphocytes/100 WBC (Bld) 32.4 % Normal 20.0-45.0 [facility] Comment on above: Performed By: #### 5 0103 #### [facility] [address] [place] [address], [facility] MCH (RBC) [Entitic mass] 30.2 pg Normal 27.0-33.0 [facility] Comment on above: Performed By: #### 5 0103 #### [facility] [address] [facility] [address], [facility] MCHC (RBC) [Mass/Vol] 33.5 g/dL Normal 32.0-35.0 [facility] Comment on above: Performed By: #### 5 0103 #### [facility] [address] [facility] [place] [address], [facility] MCV (RBC) [Entitic vol] 90.1 fL Normal 82.0-98.0 [facility] Comment on above: Performed By: #### 5 0103 #### [facility] [address] [place] [address], [facility] Monocytes (Bld) [#/Vol] 0.7 10*3/uL Normal 0.1-1.0 [facility] Comment on above: Performed By: #### 5 0103 #### [facility] [address] [facility] [place] [address], [facility] MONOS 9.8 % Normal 5.0-12.0 [facility] Comment on above: Performed By: #### 5 0103 #### [facility] [address] [facility] [place] [address], [facility] Neutrophils/100 WBC (Bld) 55.4 % Normal 40.0-72.0 [facility] Comment on above: Performed By: #### 5 0103 #### [facility] [address] [facility] [address] Nucleated RBC/100 WBC (Bld) [Ratio] 0 % Normal 0-0 [facility] Comment on above: Performed By: #### 5 0103 #### [facility] [address] [facility] [place] [address], [facility] PLAT CNT 263 10*3/uL Normal 150-400 [facility] Comment on above: Performed By: #### 5 0103 #### [facility] [address] [facility] [address], [facility] RBC (Bld) [#/Vol] 4.04 10*6/uL Normal 3.80-5.00 [facility] Comment on above: Performed By: #### 5 0103 #### [facility] [address] [facility]. [address] WBC (Bld) [#/Vol] 7.14 10*3/uL Normal 4.00-10.60 [facility] Comment on above: Performed By: #### 5 0103 #### [facility] [address] [facility]. [address] COMP METABOLIC PANELon 09-30 Albumin [Mass/Vol] 3.8 g/dL Normal 3.5-5.7 [facility] Comment on above: Performed By: #### 0 0121, [id number] #### [facility] [address] [facility]. [address] ALKALINE PHOSPH 49 IU/L Normal 34-104 [facility] Comment on above: Performed By: #### 0 0121, [id number] #### [facility] [address] [facility]. [address] ALT [Catalytic activity/Vol] 18 U/L Normal 7-52 [facility] Comment on above: Performed By: #### 0 0121, [id number] #### [facility] [address] [facility]. [address] AST [Catalytic activity/Vol] 13 U/L Normal 13-39 [facility] Comment on above: Performed By: #### 0 0121, [id number] #### [facility] [address] [place] [address], [place] Bilirubin [Mass/Vol] 0.3 mg/dL Normal 0.3-1.0 [facility] Comment on above: Performed By: #### 0 0121, [id number] #### [facility] [address] [place] [address], [place] Calcium [Mass/Vol] 8.6 mg/dL Normal 8.6-10.3 [facility] Comment on above: Performed By: #### 0 0121, 97036 #### [facility] [address] [place] [address], [place] Chloride [Moles/Vol] 104 mmol/L Normal 98-107 [facility] Comment on above: Performed By: #### 0 0121, [id number] #### [facility] [address] [place] [address], [place] CO2 [Moles/Vol] 27 mmol/L Normal 21-31 [facility] Comment on above: Performed By: #### 0 0121, [id number] #### [facility] [address] [place] [address], [place] Creatinine [Mass/Vol] 0.70 mg/dL Normal 0.60-1.20 [facility] Comment on above: Performed By: #### 0 0121, 83704 #### [facility] [address] [place] [address], [place] GFR/1.73 sq M.predicted among blacks MDRD (S/P/Bld) [Vol rate/Area] mL/min/{1.73_m2} Normal >60 [facility] Comment on above: Performed By: #### 0 0121, 79579 #### [facility] [address] [place] [address], [place] GFR/1.73 sq M.predicted among non-blacks MDRD (S/P/Bld) [Vol rate/Area] mL/min/{1.73_m2} Normal >60 [facility] Comment on above: Performed By: #### 0 0121, [id number] #### [facility] [address] [place] [address], [place] Glucose [Mass/Vol] 131 mg/dL High 70-100 [facility] Comment on above: Performed By: #### 0 0121, [id number] #### [facility] [address] [place] [address], [facility] Potassium [Moles/Vol] 4.0 mmol/L Normal 3.5-5.1 [facility] Comment on above: Performed By: #### 0 0121, [id number] #### [facility] [address] [place] [address], [facility] Protein [Mass/Vol] 6.5 g/dL Normal 6.0-8.3 [facility] Comment on above: Performed By: #### 0 0121, [id number] #### [facility] [address] [place] [address], [facility] Sodium [Moles/Vol] 138 mmol/L Normal 136-145 [facility] Comment on above: Performed By: #### 0 0121, [id number] #### [facility] [address] [place] [address], [facility] Urea nitrogen [Mass/Vol] 19 mg/dL Normal 7-25 [facility] Comment on above: Performed By: #### 0 0121, [id number] #### [facility] [address] [place] [address], [place] LACTATE BLOODon 09-30-2020 Lactate [Moles/Vol] 1.1 mmol/L Normal 0.5-2.2 [facility] Comment on above: Performed By: #### 5 0103 #### [facility] [address] [place] [address], [facility] LIPASE BLOODon 09-30-2020 LIPASE 55 Units/L Normal 11-82 [facility] Comment on above: Performed By: #### 0 0121, [id number] #### [facility] [address] [place] [address], [facility] POC URINE PREGNANCYon 2020 Beta HCG ( test) Ql (U) Negative Normal NEGATIVE [facility] Comment on above: Performed By: #### 5 0103 #### [facility] [address] [facility] [place] [address], [facility] BASIC METABOLIC PANELon 03-18 Calcium [Mass/Vol] 8.9 mg/dL Normal 8.6-10.3 [facility] Comment on above: Performed By: #### 5 3 #### [facility] [address] [facility] [place] [address], [facility] Chloride [Moles/Vol] 106 mmol/L Normal 98-107 [facility] Comment on above: Performed By: #### 5 3 #### [facility] [address] [facility] [address], [facility] CO2 [Moles/Vol] 26 mmol/L Normal 21-31 [facility] Comment on above: Performed By: #### 5 3 #### [facility] [address] [facility] [place] [address], [facility] Creatinine [Mass/Vol] 0.81 mg/dL Normal 0.60-1.20 [facility] Comment on above: Performed By: #### 5 3 #### [facility] [address] [facility] [place] [address], [facility] GFR/1.73 sq M.predicted among blacks MDRD (S/P/Bld) [Vol rate/Area] mL/min/{1.73_m2} Normal >60 [facility] Comment on above: Performed By: #### 5 3 #### [facility] [address] [place] [address], [facility] GFR/1.73 sq M.predicted among non-blacks MDRD (S/P/Bld) [Vol rate/Area] mL/min/{1.73_m2} Normal >60 [facility] Comment on above: Performed By: #### 5 0103 #### [facility] [address] Glucose [Mass/Vol] 124 mg/dL High 70-100 [facility] Comment on above: Performed By: #### 5 3 #### [facility] [address] Potassium [Moles/Vol] 3.9 mmol/L Normal 3.5-5.1 [facility] Comment on above: Performed By: #### 5 3 #### [facility] [address] Sodium [Moles/Vol] 135 mmol/L Low 136-145 [facility] Comment on above: Performed By: #### 5 3 #### [facility] [address] [place] [address], [facility] Urea nitrogen [Mass/Vol] 11 mg/dL Normal 7-25 [facility] Comment on above: Performed By: #### 5 3 #### [facility] [address] [facility]. [address] CBC W/DIFFon 04-03-2020 ABS IMM GRANS 0.0 10*3/uL Normal 0.0-0.2 [facility] Comment on above: Performed By: #### 5 3 #### [facility] [address] ABS NEUTROPHILS 2.9 10*3/uL Normal 1.6-7.6 [facility] Comment on above: Performed By: #### 5 3 #### [facility] [address] [place] [address], [facility] Basophils (Bld) [#/Vol] 0.0 10*3/uL Normal 0.0-0.2 [facility] Comment on above: Performed By: #### 5 0103 #### [facility] [address] [place] [address], [facility] Basophils/100 WBC (Bld) 0.5 % Normal 0.0-1.0 [facility] Comment on above: Performed By: #### 5 0103 #### [facility] [address] [facility] [place] [address], [facility] Eosinophils (Bld) [#/Vol] 0.1 10*3/uL Normal 0.0-0.5 [facility] Comment on above: Performed By: #### 5 3 #### [facility] [address] [place] [address], [facility] Eosinophils/100 WBC (Bld) 2.1 % Normal 0.0-6.0 [facility] Comment on above: Performed By: #### 5 3 #### [facility] [address] [facility] [place] [address], [facility] Erythrocyte distribution width (RBC) [Ratio] 12.9 % Normal 11.5-15.0 [facility] Comment on above: Performed By: #### 5 3 #### [facility] [address] [facility] [place] [address], [facility] Hematocrit (Bld) [Volume fraction] 35.7 % Low 36.0-45.0 [facility] Comment on above: Performed By: #### 5 3 #### [facility] [address] [place] [id number], [facility] Hemoglobin (Bld) [Mass/Vol] 11.7 g/dL Low 12.0-15.0 [facility] Comment on above: Performed By: #### 5 3 #### [facility] [address] IMMATURE GRANS 0.3 % Normal 0.0-1.0 [facility] Comment on above: Performed By: #### 102 #### [facility] [address] Lymphocytes (Bld) [#/Vol] 2.1 10*3/uL Normal 1.2-4.0 [facility] Comment on above: Performed By: #### 3 #### [facility] [address] Lymphocytes/100 WBC (Bld) 35.9 % Normal 20.0-45.0 [facility] Comment on above: Performed By: #### 102 #### [facility] [address] MCH (RBC) [Entitic mass] 29.5 pg Normal 27.0-33.0 [facility] Comment on above: Performed By: #### 102 #### [facility] [address] MCHC (RBC) [Mass/Vol] 32.8 g/dL Normal 32.0-35.0 [facility] Comment on above: Performed By: #### 102 #### [facility] [address] MCV (RBC) [Entitic vol] 90.2 fL Normal 82.0-98.0 [facility] Comment on above: Performed By: #### 102 #### [facility] [address] [place] [address], [facility] Monocytes (Bld) [#/Vol] 0.7 10*3/uL Normal 0.1-1.0 [facility] Comment on above: Performed By: #### 102 #### [facility] [address] [place] [id number], [facility] MONOS 11.4 % Normal 5.0-12.0 [facility] Comment on above: Performed By: #### 5 3 #### [facility] [address] [place] [address], [facility] Neutrophils/100 WBC (Bld) 49.8 % Normal 40.0-72.0 [facility] Comment on above: Performed By: #### 5 3 #### [facility] [address] [place] [address], [facility] Nucleated RBC/100 WBC (Bld) [Ratio] 0 % Normal 0-0 [facility] Comment on above: Performed By: #### 5 102 #### [facility] [address] [place] [address], [facility] PLAT CNT 250 10*3/uL Normal 150-400 [facility] Comment on above: Performed By: #### 5 3 #### [facility] [address] [facility] [address], [facility] RBC (Bld) [#/Vol] 3.96 10*6/uL Normal 3.80-5.00 [facility] Comment on above: Performed By: #### 5 3 #### [facility] [address] [facility] [place] [id number], [facility] WBC (Bld) [#/Vol] 5.80 10*3/uL Normal 4.00-10.60 [facility] Comment on above: Performed By: #### 5 3 #### [facility] [address] [facility] [address], [facility] LACTATE BLOODon 04-03-2020 Lactate [Moles/Vol] 0.9 mmol/L Normal 0.5-2.2 [facility] Comment on above: Performed By: #### 1 0054 #### [facility] [address] [place] [address], [place] LIPASE BLOODon 04-03-2020 LIPASE 36 Units/L Normal 11-82 [facility] Comment on above: Performed By: #### 5 0103 #### [facility] [address] [place] [address], [place] LIVER BATTERYon 04-03-2020 Albumin [Mass/Vol] 3.6 g/dL Normal 3.5-5.7 [facility] Comment on above: Performed By: #### 5 0103 #### [facility] [address] [place] [address], [place] ALKALINE PHOSPH 59 IU/L Normal 34-104 [facility] Comment on above: Performed By: #### 5 0103 #### [facility] [address] [place] [address], [place] ALT [Catalytic activity/Vol] 24 U/L Normal 7-52 [facility] Comment on above: Performed By: #### 5 0103 #### [facility] [address] [place] [address], [place] AST [Catalytic activity/Vol] 16 U/L Normal 13-39 [facility] Comment on above: Performed By: #### 5 0103 #### [facility] [address] [place] [address], [place] Bilirubin [Mass/Vol] 0.3 mg/dL Normal 0.3-1.0 [facility] Comment on above: Performed By: #### 5 0103 #### [facility] [address] [place] [address], [place] Bilirubin.direct [Mass/Vol] 0.1 mg/dL Normal 0.0-0.2 [facility] Comment on above: Performed By: #### 5 0103 #### [facility] [address] [place] [address], [place] Protein [Mass/Vol] 6.3 g/dL Normal 6.0-8.3 [facility] Comment on above: Performed By: #### 5 0103 #### [facility] [address] [facility] [place] [address], [facility] POC URINE PREGNANCYon 2019 Beta HCG ( test) Ql (U) Negative Normal NEGATIVE [facility] Comment on above: Result Comment: Perf ormed in Emergency Department. Performed By: #### 5 0103 #### [facility] [address] [facility] [address], [facility] URINALYSIS REFLEXon 04-03-20 20 Appearance (U) CLOUDY Abnormal CLEAR [facility] Comment on above: Order Comment: Crite nancy for reflexing a culture was not met. Please call the lab [id number] within 24 hours of collection time if culture is needed Performed By: #### 5 0103 #### [facility] [address] [facility] [address], [facility] Bilirubin Ql (U) Negative Normal NEGATIVE [facility] Comment on above: Order Comment: Crite nancy for reflexing a culture was not met. Please call the lab [id number] within 24 hours of collection time if culture is needed Performed By: #### 5 0103 #### [facility] [address] [facility] [address], [facility] Color (U) YELLOW Normal YELLOW [facility] Comment on above: Order Comment: Crite nancy for reflexing a culture was not met. Please call the lab [id number] within 24 hours of collection time if culture is needed Performed By: #### 5 0103 #### [facility] [address] [facility] [place] [address], [facility] EPIS MOD Abnormal FEW,OCC,NONE SEEN [facility] Comment on above: Order Comment: Crite nancy for reflexing a culture was not met. Please call the lab [id number] within 24 hours of collection time if culture is needed Performed By: #### 5 0103 #### [facility] [address] [place] [address], [place] Glucose Ql (U) Negative Normal NEGATIVE [facility] Comment on above: Order Comment: Crite nancy for reflexing a culture was not met. Please call the lab [id number] within 24 hours of collection time if culture is needed Performed By: #### 5 0103 #### [facility] [address] [place] [address], [place] Hemoglobin Ql (U) LARGE Abnormal NEGATIVE [facility] Comment on above: Order Comment: Crite nancy for reflexing a culture was not met. Please call the lab [id number] within 24 hours of collection time if culture is needed Performed By: #### 5 0103 #### [facility] [address] [place] [address], [place] KETONE Negative Normal NEGATIVE [facility] Comment on above: Order Comment: Crite nancy for reflexing a culture was not met. Please call the lab [id number] within 24 hours of collection time if culture is needed Performed By: #### 5 0103 #### [facility] [address] [place] [address], [place] LEUK PALLAVI Negative Normal NEGATIVE [facility] Comment on above: Order Comment: Crite nancy for reflexing a culture was not met. Please call the lab [id number] within 24 hours of collection time if culture is needed Performed By: #### 5 0103 #### [facility] [address] [place] [address], [place] MUCUS THREADS OCC Abnormal NONE SEEN [facility] Comment on above: Order Comment: Crite nancy for reflexing a culture was not met. Please call the lab [id number] within 24 hours of collection time if culture is needed Performed By: #### 5 0103 #### [facility] [address] [place] [address], [place] Nitrite Ql (U) Negative Normal NEGATIVE [facility] Comment on above: Order Comment: Crite nancy for reflexing a culture was not met. Please call the lab [id number] within 24 hours of collection time if culture is needed Performed By: #### 5 0103 #### [facility] [address] pH (U) 6.0 [pH] Normal 5.0-8.0 [facility] Comment on above: Order Comment: Crite nancy for reflexing a culture was not met. Please call the lab [id number] within 24 hours of collection time if culture is needed Performed By: #### 5 0103 #### [facility] [address] Protein Ql (U) 100 mg/dL Abnormal NEGATIVE [facility] Comment on above: Order Comment: Crite nancy for reflexing a culture was not met. Please call the lab [id number] within 24 hours of collection time if culture is needed Performed By: #### 5 0103 #### [facility] [address] RBC (U) [#/Vol] /uL Abnormal NONE SEEN [facility] Comment on above: Order Comment: Crite nancy for reflexing a culture was not met. Please call the lab [id number] within 24 hours of collection time if culture is needed Performed By: #### 5 0103 #### [facility] [address] SPEC GRAV 1.025 High 1.015-1.020 [facility] Comment on above: Order Comment: Crite nancy for reflexing a culture was not met. Please call the lab [id number] within 24 hours of collection time if culture is needed Performed By: #### 5 0103 #### [facility] [address] [place] [address], [facility] WBC UA 11-20 Abnormal NONE SEEN [facility] Comment on above: Order Comment: Crite nancy for reflexing a culture was not met. Please call the lab [id number] within 24 hours of collection time if culture is needed Performed By: #### 5 0103 #### [facility] [address] BASIC METABOLIC PANELon 05-0 3-2020 Calcium [Mass/Vol] 8.5 mg/dL Low 8.6-10.3 [facility] Comment on above: Performed By: #### 5 0103 #### [facility] [address] [place] [address], [place] Chloride [Moles/Vol] 104 mmol/L Normal 98-107 [facility] Comment on above: Performed By: #### 5 0103 #### [facility] [address] [place] [address], [place] CO2 [Moles/Vol] 24 mmol/L Normal 21-31 [facility] Comment on above: Performed By: #### 5 0103 #### [facility] [address] [place] [address], [facility] Creatinine [Mass/Vol] 0.80 mg/dL Normal 0.60-1.20 [facility] Comment on above: Performed By: #### 5 0103 #### [facility] [address] [place] [address], [place] GFR/1.73 sq M.predicted among blacks MDRD (S/P/Bld) [Vol rate/Area] mL/min/{1.73_m2} Normal >60 [facility] Comment on above: Performed By: #### 5 0103 #### [facility] [address] [place] [address], [place] GFR/1.73 sq M.predicted among non-blacks MDRD (S/P/Bld) [Vol rate/Area] mL/min/{1.73_m2} Normal >60 [facility] Comment on above: Performed By: #### 5 0103 #### [facility] [address] [place] [address], [place] Glucose [Mass/Vol] 167 mg/dL High 70-100 [facility] Comment on above: Performed By: #### 5 0103 #### [facility] [address] Potassium [Moles/Vol] 3.6 mmol/L Normal 3.5-5.1 [facility] Comment on above: Performed By: #### 5 0103 #### [facility] [address] Sodium [Moles/Vol] 135 mmol/L Low 136-145 [facility] Comment on above: Performed By: #### 5 0103 #### [facility] [address] Urea nitrogen [Mass/Vol] 12 mg/dL Normal 7-25 [facility] Comment on above: Performed By: #### 5 3 #### [facility] [address] CBC W/DIFFon 10-19-2019 ABS IMM GRANS 0.1 10*3/uL Normal 0.0-0.2 [facility] Comment on above: Performed By: #### 5 0103 #### [facility] [address] ABS NEUTROPHILS 8.1 10*3/uL High 1.6-7.6 [facility] Comment on above: Performed By: #### 5 0103 #### [facility] [address] Basophils (Bld) [#/Vol] 0.0 10*3/uL Normal 0.0-0.2 [facility] Comment on above: Performed By: #### 5 0103 #### [facility] [address] Basophils/100 WBC (Bld) 0.3 % Normal 0.0-1.0 [facility] Comment on above: Performed By: #### 5 0103 #### [facility] [address] [place] [address], [place] Eosinophils (Bld) [#/Vol] 0.0 10*3/uL Normal 0.0-0.5 [facility] Comment on above: Performed By: #### 5 0103 #### [facility] [address] [place] [address], [facility] Eosinophils/100 WBC (Bld) 0.1 % Normal 0.0-6.0 [facility] Comment on above: Performed By: #### 5 0103 #### [facility] [address] Erythrocyte distribution width (RBC) [Ratio] 12.4 % Normal 11.5-15.0 [facility] Comment on above: Performed By: #### 5 0103 #### [facility] [address] Hematocrit (Bld) [Volume fraction] 36.3 % Normal 36.0-45.0 [facility] Comment on above: Performed By: #### 5 0103 #### [facility] [address] Hemoglobin (Bld) [Mass/Vol] 12.0 g/dL Normal 12.0-15.0 [facility] Comment on above: Performed By: #### 5 0103 #### [facility] [address] [place] [address], [facility] IMMATURE GRANS 1.0 % Normal 0.0-1.0 [facility] Comment on above: Performed By: #### 5 0103 #### [facility] [address] [place] [address], [facility] Lymphocytes (Bld) [#/Vol] 2.3 10*3/uL Normal 1.2-4.0 [facility] Comment on above: Performed By: #### 5 0103 #### [facility] [address] [place] [address], [facility] Lymphocytes/100 WBC (Bld) 20.1 % Normal 20.0-45.0 [facility] Comment on above: Performed By: #### 5 0103 #### [facility] [address] [facility] [place] [address], [facility] MCH (RBC) [Entitic mass] 30.2 pg Normal 27.0-33.0 [facility] Comment on above: Performed By: #### 5 0103 #### [facility] [address] [facility] [address] MCHC (RBC) [Mass/Vol] 33.1 g/dL Normal 32.0-35.0 [facility] Comment on above: Performed By: #### 5 0103 #### [facility] [address] [facility] [place] [address], [facility] MCV (RBC) [Entitic vol] 91.4 fL Normal 82.0-98.0 [facility] Comment on above: Performed By: #### 5 0103 #### [facility] [address] [facility] [place] [address], [facility] Monocytes (Bld) [#/Vol] 0.9 10*3/uL Normal 0.1-1.0 [facility] Comment on above: Performed By: #### 5 0103 #### [facility] [address] [facility] [place] [address], [facility] MONOS 7.5 % Normal 5.0-12.0 [facility] Comment on above: Performed By: #### 5 0103 #### [facility] [address] [facility] [place] [address], [facility] Neutrophils/100 WBC (Bld) 71.0 % Normal 40.0-72.0 [facility] Comment on above: Performed By: #### 5 3 #### [facility] [address] [place] [address], [facility] Nucleated RBC/100 WBC (Bld) [Ratio] 0 % Normal 0-0 [facility] Comment on above: Performed By: #### 5 0103 #### [facility] [address] [place] [address], [facility] PLAT CNT 281 10*3/uL Normal 150-400 [facility] Comment on above: Performed By: #### 5 0103 #### [facility] [address] [place] [address], [facility] RBC (Bld) [#/Vol] 3.97 10*6/uL Normal 3.80-5.00 [facility] Comment on above: Performed By: #### 5 0103 #### [facility] [address] [place] [address], [facility] WBC (Bld) [#/Vol] 11.37 10*3/uL High 4.00-10.60 [facility] Comment on above: Performed By: #### 5 0103 #### [facility] [address] [place] [address], [facility] LACTATE BLOODon 10-19-2019 Lactate [Moles/Vol] 1.4 mmol/L Normal 0.5-2.2 [facility] Comment on above: Performed By: #### 5 0103 #### [facility] [address] [facility] [place] [id number], [facility] LIPASE BLOODon 10-19-2019 LIPASE 10 Units/L Low 11-82 [facility] Comment on above: Performed By: #### 5 0103 #### [facility] [address] [place] [id number], [facility] LIVER BATTERYon 10-19-2019 Albumin [Mass/Vol] 3.6 g/dL Normal 3.5-5.7 [facility] Comment on above: Performed By: #### 5 0103 #### [facility] [address] [place] [address], [facility] ALKALINE PHOSPH 51 IU/L Normal 34-104 [facility] Comment on above: Performed By: #### 5 0103 #### [facility] [address] [place] [address], [facility] ALT [Catalytic activity/Vol] 21 U/L Normal 7-52 [facility] Comment on above: Performed By: #### 5 0103 #### [facility] [address] [facility] [address] AST [Catalytic activity/Vol] 11 U/L Low 13-39 [facility] Comment on above: Performed By: #### 5 0103 #### [facility] [address] [facility] [place] [address], [facility] Bilirubin [Mass/Vol] 0.3 mg/dL Normal 0.3-1.0 [facility] Comment on above: Performed By: #### 5 0103 #### [facility] [address] [facility]. [address] Bilirubin.direct [Mass/Vol] 0.1 mg/dL Normal 0.0-0.2 [facility] Comment on above: Performed By: #### 5 0103 #### [facility] [address] [facility] [place] [address], [facility] Protein [Mass/Vol] 6.3 g/dL Normal 6.0-8.3 [facility] Comment on above: Performed By: #### 5 0103 #### [facility] [address] [facility]. [address] SERUM TESTon 10-18 TEST Negative Normal [facility] Comment on above: Performed By: #### 5 0103 #### [facility] [address] [facility] [place] [address], [facility] BASIC METABOLIC PANELon 05 Calcium [Mass/Vol] 8.4 mg/dL Low 8.6-10.3 [facility] Comment on above: Performed By: #### 3 6901, 43896, 19484 #### [facility] [address] [place] [address], [place] Chloride [Moles/Vol] 103 mmol/L Normal 98-107 [facility] Comment on above: Performed By: #### 3 6901, 97916, 88634 #### [facility] [address] [place] [address], [place] CO2 [Moles/Vol] 26 mmol/L Normal 21-31 [facility] Comment on above: Performed By: #### 3 6901, 27432, 60917 #### [facility] [address] [place] [address], [place] Creatinine [Mass/Vol] 0.87 mg/dL Normal 0.60-1.20 [facility] Comment on above: Performed By: #### 3 6901, 53118, 36067 #### [facility] [address] [place] [address], [place] GFR/1.73 sq M.predicted among blacks MDRD (S/P/Bld) [Vol rate/Area] mL/min/{1.73_m2} Normal >60 [facility] Comment on above: Performed By: #### 3 6901, 09650, 98991 #### [facility] [address] [place] [address], [place] GFR/1.73 sq M.predicted among non-blacks MDRD (S/P/Bld) [Vol rate/Area] mL/min/{1.73_m2} Normal >60 [facility] Comment on above: Performed By: #### 3 6901, 03929, 75931 #### [facility] [address] [place] [address], [place] Glucose [Mass/Vol] 117 mg/dL High 70-100 [facility] Comment on above: Performed By: #### 3 6901, 41220, 27317 #### [facility] [address] Potassium [Moles/Vol] 4.2 mmol/L Normal 3.5-5.1 [facility] Comment on above: Performed By: #### 3 6901, 52224, 88612 #### [facility] [address] Sodium [Moles/Vol] 135 mmol/L Low 136-145 [facility] Comment on above: Performed By: #### 3 6901, 62767, 08290 #### [facility] [address] Urea nitrogen [Mass/Vol] 10 mg/dL Normal 7-25 [facility] Comment on above: Performed By: #### 3 6901, 72721, 63926 #### [facility] [address] CBC W/DIFFon 10-17-2019 ABS IMM GRANS 0.0 10*3/uL Normal 0.0-0.2 [facility] Comment on above: Performed By: #### 5 0103 #### [facility] [address] ABS NEUTROPHILS 3.0 10*3/uL Normal 1.6-7.6 [facility] Comment on above: Performed By: #### 5 0103 #### [facility] [address] Basophils (Bld) [#/Vol] 0.0 10*3/uL Normal 0.0-0.2 [facility] Comment on above: Performed By: #### 5 0103 #### [facility] [address] Basophils/100 WBC (Bld) 0.5 % Normal 0.0-1.0 [facility] Comment on above: Performed By: #### 5 102 #### [facility] [address] Eosinophils (Bld) [#/Vol] 0.1 10*3/uL Normal 0.0-0.5 [facility] Comment on above: Performed By: #### 5 0103 #### [facility] [address] [place] [address], [facility] Eosinophils/100 WBC (Bld) 1.2 % Normal 0.0-6.0 [facility] Comment on above: Performed By: #### 3 #### [facility] [address] Erythrocyte distribution width (RBC) [Ratio] 12.4 % Normal 11.5-15.0 [facility] Comment on above: Performed By: #### 102 #### [facility] [address] Hematocrit (Bld) [Volume fraction] 35.7 % Low 36.0-45.0 [facility] Comment on above: Performed By: #### 3 #### [facility] [address] Hemoglobin (Bld) [Mass/Vol] 11.6 g/dL Low 12.0-15.0 [facility] Comment on above: Performed By: #### 5 3 #### [facility] [address] IMMATURE GRANS 0.4 % Normal 0.0-1.0 [facility] Comment on above: Performed By: #### 5 3 #### [facility] [address] [place] [address], [facility] Lymphocytes (Bld) [#/Vol] 2.0 10*3/uL Normal 1.2-4.0 [facility] Comment on above: Performed By: #### 3 #### [facility] [address] [facility] [place] [address], [facility] Lymphocytes/100 WBC (Bld) 34.6 % Normal 20.0-45.0 [facility] Comment on above: Performed By: #### 5 0103 #### [facility] [address] [place] [address], [facility] MCH (RBC) [Entitic mass] 30.1 pg Normal 27.0-33.0 [facility] Comment on above: Performed By: #### 5 0103 #### [facility] [address] [facility] [place] [address], [facility] MCHC (RBC) [Mass/Vol] 32.5 g/dL Normal 32.0-35.0 [facility] Comment on above: Performed By: #### 5 0103 #### [facility] [address] [facility] [place] [address], [facility] MCV (RBC) [Entitic vol] 92.5 fL Normal 82.0-98.0 [facility] Comment on above: Performed By: #### 5 0103 #### [facility] [address] [facility] [place] [address], [facility] Monocytes (Bld) [#/Vol] 0.6 10*3/uL Normal 0.1-1.0 [facility] Comment on above: Performed By: #### 5 0103 #### [facility] [address] [facility] [place] [address], [facility] MONOS 10.2 % Normal 5.0-12.0 [facility] Comment on above: Performed By: #### 5 0103 #### [facility] [address] [facility] [place] [address], [facility] Neutrophils/100 WBC (Bld) 53.1 % Normal 40.0-72.0 [facility] Comment on above: Performed By: #### 5 0103 #### [facility] [address] [facility] [address] Nucleated RBC/100 WBC (Bld) [Ratio] 0 % Normal 0-0 [facility] Comment on above: Performed By: #### 5 0103 #### [facility] [address] [facility] [address], [facility] PLAT CNT 236 10*3/uL Normal 150-400 [facility] Comment on above: Performed By: #### 5 0103 #### [facility] [address] [facility] [place] [address], [facility] RBC (Bld) [#/Vol] 3.86 10*6/uL Normal 3.80-5.00 [facility] Comment on above: Performed By: #### 5 0103 #### [facility] [address] [facility] [place] [address], [facility] WBC (Bld) [#/Vol] 5.66 10*3/uL Normal 4.00-10.60 [facility] Comment on above: Performed By: #### 5 0103 #### [facility] [address] [facility] [place] [address], [facility] LIPASE BLOODon 10-17-2019 LIPASE 124 Units/L High 11-82 [facility] Comment on above: Performed By: #### 3 6901, 36138, 91877 #### [facility] [address] [facility]. [address] LIVER BATTERYon 10-17-2019 Albumin [Mass/Vol] 3.4 g/dL Low 3.5-5.7 [facility] Comment on above: Performed By: #### 3 6901, 98753, 36024 #### [facility] [address] [facility] [place] [address], [facility] ALKALINE PHOSPH 50 IU/L Normal 34-104 [facility] Comment on above: Performed By: #### 3 6901, 19711, 28746 #### [facility] [address] [facility] [place] [address], [facility] ALT [Catalytic activity/Vol] 23 U/L Normal 7-52 [facility] Comment on above: Performed By: #### 3 6901, 05438, 84198 #### [facility] [address] [facility]. [address] AST [Catalytic activity/Vol] 18 U/L Normal 13-39 [facility] Comment on above: Performed By: #### 3 6901, 37807, 22803 #### [facility] [address] [facility]. [address] Bilirubin [Mass/Vol] 0.4 mg/dL Normal 0.3-1.0 [facility] Comment on above: Performed By: #### 3 6901, 81139, 27600 #### [facility] [address] [facility]. [address] Bilirubin.direct [Mass/Vol] 0.1 mg/dL Normal 0.0-0.2 [facility] Comment on above: Performed By: #### 3 6901, 33593, 50124 #### [facility] [address] [facility]. [address] Protein [Mass/Vol] 5.9 g/dL Low 6.0-8.3 [facility] Comment on above: Performed By: #### 3 6901, 31303, 39364 #### [facility] [address] [facility]. [address] POC URINE PREGNANCYon 2019 Beta HCG ( test) Ql (U) Negative Normal NEGATIVE [facility] Comment on above: Result Comment: Perf ormed in Emergency Department. Performed By: #### 8 4140 #### [facility] [address] URINALYSIS REFLEXon 10-17-19 20 Appearance (U) SL CLOUDY Abnormal CLEAR [facility] Comment on above: Order Comment: Crite nancy for reflexing a culture was not met. Please call the lab [id number] within 24 hours of collection time if culture is needed Performed By: #### 5 0103 #### [facility] [address] [place] [address], [place] Bilirubin Ql (U) Negative Normal NEGATIVE [facility] Comment on above: Order Comment: Crite nancy for reflexing a culture was not met. Please call the lab [id number] within 24 hours of collection time if culture is needed Performed By: #### 5 0103 #### [facility] [address] [place] [address], [place] Color (U) YELLOW Normal YELLOW [facility] Comment on above: Order Comment: Crite nancy for reflexing a culture was not met. Please call the lab [id number] within 24 hours of collection time if culture is needed Performed By: #### 5 0103 #### [facility] [address] [place] [address], [place] Glucose Ql (U) Negative Normal NEGATIVE [facility] Comment on above: Order Comment: Crite nancy for reflexing a culture was not met. Please call the lab [id number] within 24 hours of collection time if culture is needed Performed By: #### 5 0103 #### [facility] [address] [place] [address], [place] Hemoglobin Ql (U) Negative Normal NEGATIVE [facility] Comment on above: Order Comment: Crite nancy for reflexing a culture was not met. Please call the lab [id number] within 24 hours of collection time if culture is needed Performed By: #### 5 0103 #### [facility] [address] [place] [address], [place] KETONE Negative Normal NEGATIVE [facility] Comment on above: Order Comment: Crite nancy for reflexing a culture was not met. Please call the lab [id number] within 24 hours of collection time if culture is needed Performed By: #### 5 0103 #### [facility] [address] [place] [address], [place] LEUK PALLAVI Negative Normal NEGATIVE [facility] Comment on above: Order Comment: Crite nancy for reflexing a culture was not met. Please call the lab [id number] within 24 hours of collection time if culture is needed Performed By: #### 5 0103 #### [facility] [address] [place] [address], [facility] MICRO NOT DONE Normal [facility] Comment on above: Order Comment: Crite nancy for reflexing a culture was not met. Please call the lab [email or web address] within 24 hours of collection time if culture is needed Result Comment: Micr oscopics not performed on urines with negative chemical reactions unless requested in original order Performed By: #### 5 0103 #### [facility] [address] [facility] [place] [address], [facility] Nitrite Ql (U) Negative Normal NEGATIVE [facility] Comment on above: Order Comment: Crite nancy for reflexing a culture was not met. Please call the lab [id number] within 24 hours of collection time if culture is needed Performed By: #### 5 0103 #### [facility] [address] [facility] [place] [address], [facility] pH (U) 7.0 [pH] Normal 5.0-8.0 [facility] Comment on above: Order Comment: Crite nancy for reflexing a culture was not met. Please call the lab [id number] within 24 hours of collection time if culture is needed Performed By: #### 5 0103 #### [facility] [address] [facility] [place] [address], [facility] Protein Ql (U) Negative Normal NEGATIVE [facility] Comment on above: Order Comment: Crite nancy for reflexing a culture was not met. Please call the lab [id number] within 24 hours of collection time if culture is needed Performed By: #### 5 0103 #### [facility] [address] [place] [address], [facility] SPEC GRAV 1.014 Low 1.015-1.020 [facility] Comment on above: Order Comment: Crite nancy for reflexing a culture was not met. Please call the lab [id number] within 24 hours of collection time if culture is needed Performed By: #### 5 0103 #### [facility] [address] [place] [address], [facility] C-Reactive Proteinon 08-19-2 020 CRP [Mass/Vol] 6.5 mg/L High 0.0-5.0 [facility] Comment on above: Performed By: #### C DP, HCG, CP, CRP, LIP, MG, SED #### [facility] [address] [place] [address] Cd Mixer Helper: Reynold [place] DO CRP [Mass/Vol] 6.5 mg/L High 0 - 5 mg/L [place], [place] CBC Auto Differentialon Basophils (Bld) [#/Vol] 0.00 10*3/uL [place] Basophils/100 WBC (Bld) 1 % 0 - 2 % [place], [place] Differential Type NOT REPORTED [place] Eosinophils (Bld) [#/Vol] 0.10 10*3/uL [place] Eosinophils/100 WBC (Bld) 2 % 0 - 4 % [place] Erythrocyte distribution width (RBC) [Ratio] 13.6 % 11.5 - 14.9 % [place] Hematocrit (Bld) [Volume fraction] 40.6 % 36 - 46 % [place] Hemoglobin (Bld) [Mass/Vol] 13.4 g/dL 12 - 16 g/dL [place] Interpretation and review of laboratory results Abnormal [place] Lymphocytes (Bld) [#/Vol] 1.60 10*3/uL [place] Lymphocytes/100 WBC (Bld) 33 % 24 - 44 % [place] MCH (RBC) [Entitic mass] 29.9 pg 26 - 34 pg [place] MCHC (RBC) [Mass/Vol] 33.0 g/dL 31 - 37 g/dL [place], [place] MCV (RBC) [Entitic vol] 90.4 fL 80 - 100 fL [place] Monocytes (Bld) [#/Vol] 0.50 10*3/uL [place] Monocytes/100 WBC (Bld) 11 % High 1 - 7 % [place] Platelet mean volume (Bld) [Entitic vol] 7.3 fL 6 - 12 fL [place] Platelets (Bld) [#/Vol] 269 10*3/uL [place] Platelets (Bld) [#/Vol] NOT REPORTED [place] RBC (Bld) [#/Vol] 4.48 10*6/uL 4 - 5.2 m/uL [place] RBC morphology finding Nom (Bld) NOT REPORTED [place] Segmented neutrophils/100 WBC (Bld) 53 % 36 - 66 % [place] Segs Absolute 2.70 [place] WBC (Bld) [#/Vol] 5.0 10*3/uL [place] WBC (Bld) [#/Vol] NOT REPORTED per 100 WBC [place] WBC Morphology NOT REPORTED [place] CBC with Diffon 08-20-2019 Abs. Basophil 0.00 k/uL Normal 0.0-0.2 [facility] Comment on above: Performed By: #### C DP, HCG, CP, CRP, LIP, MG, SED #### [facility] [address] [place] [address] Cd Mixer Helper: Reynold [place] DO Abs.Neutrophil (Seg) 2.70 k/uL Normal 1.3-9.1 [facility] Comment on above: Performed By: #### C DP, HCG, CP, CRP, LIP, MG, SED #### [facility] [address] [place] [address] Cd Mixer Helper: Reynold [place] DO Basophils/100 WBC (Bld) 1 % Normal 0-2 [facility] Comment on above: Performed By: #### C DP, HCG, CP, CRP, LIP, MG, SED #### [facility] [address] [facility] [place] [address] Cd Mixer Helper: Reynold [place] DO Eosinophils (Bld) [#/Vol] 0.10 10*3/uL Normal 0.0-0.4 [facility] Comment on above: Performed By: #### C DP, HCG, CP, CRP, LIP, MG, SED #### [facility] [address] [facility] [place] [address] Cd Mixer Helper: Reynold [place] DO Eosinophils/100 WBC (Bld) 2 % Normal 0-4 [facility] Comment on above: Performed By: #### C DP, HCG, CP, CRP, LIP, MG, SED #### [facility] [facility] [place] [address] Cd Mixer Helper: Reynold [place] DO Erythrocyte distribution width (RBC) [Ratio] 13.6 % Normal 11.5-14.9 [facility] Comment on above: Performed By: #### C DP, HCG, CP, CRP, LIP, MG, SED #### [facility] [address] [facility] [place] [address] Cd Mixer Helper: Reynold [place] DO Hematocrit (Bld) [Volume fraction] 40.6 % Normal 36-46 [facility] Comment on above: Performed By: #### C DP, HCG, CP, CRP, LIP, MG, SED #### [facility] [address] [place] [address] Cd Mixer Helper: Reynold [place] DO Hemoglobin (Bld) [Mass/Vol] 13.4 g/dL Normal 12.0-16.0 [facility] Comment on above: Performed By: #### C DP, HCG, CP, CRP, LIP, MG, SED #### [facility] [place] [address] Cd Mixer Helper: Reynold [place] DO Lymphocytes (Bld) [#/Vol] 1.60 10*3/uL Normal 1.0-4.8 [facility] Comment on above: Performed By: #### C DP, HCG, CP, CRP, LIP, MG, SED #### [facility] [place] [address] Cd Mixer Helper: Reynold [place] DO Lymphocytes/100 WBC (Bld) 33 % Normal 24-44 [facility] Comment on above: Performed By: #### C DP, HCG, CP, CRP, LIP, MG, SED #### [facility] [address] [place] [address] Cd Mixer Helper: Reynold [place] DO MCH (RBC) [Entitic mass] 29.9 pg Normal 26-34 [facility] Comment on above: Performed By: #### C DP, HCG, CP, CRP, LIP, MG, SED #### [facility] [address] [place] [address] Cd Mixer Helper: Reynold [place] DO MCHC (RBC) [Mass/Vol] 33.0 g/dL Normal 31-37 [facility] Comment on above: Performed By: #### C DP, HCG, CP, CRP, LIP, MG, SED #### [facility] [address] [place] [address] Cd Mixer Helper: Reynold [place] DO MCV (RBC) [Entitic vol] 90.4 fL Normal 80-100 M [facility] Comment on above: Performed By: #### C DP, HCG, CP, CRP, LIP, MG, SED #### [facility] [address] [place] [address] Cd Mixer Helper: Reynold [place] DO Monocytes (Bld) [#/Vol] 0.50 10*3/uL Normal 0.1-1.3 [facility] Comment on above: Performed By: #### C DP, HCG, CP, CRP, LIP, MG, SED #### [facility] [address] [place] [address] Cd Mixer Helper: Reynold [place] DO Monocytes/100 WBC (Bld) 11 % High 1-7 M [facility] Comment on above: Performed By: #### C DP, HCG, CP, CRP, LIP, MG, SED #### [facility] [address] [place] [address] Cd Mixer Helper: Reynold [place] DO Neutrophil (Seg) 53 % Normal 36-66 [facility] Comment on above: Performed By: #### C DP, HCG, CP, CRP, LIP, MG, SED #### [facility] [address] [place] [address] Cd Mixer Helper: Reynold [place] DO Platelet mean volume (Bld) [Entitic vol] 7.3 fL Normal 6.0-12.0 [facility] Comment on above: Performed By: #### C DP, HCG, CP, CRP, LIP, MG, SED #### [facility] [address] [place] [address] Cd Mixer Helper: Reynold [place] DO Platelets (Bld) [#/Vol] 269 10*3/uL Normal 150-450 [facility] Comment on above: Performed By: #### C DP, HCG, CP, CRP, LIP, MG, SED #### [facility] [address] [place] [address] Cd Mixer Helper: Reynold [place] DO RBC (Bld) [#/Vol] 4.48 10*6/uL Normal 4.0-5.2 [facility] Comment on above: Performed By: #### C DP, HCG, CP, CRP, LIP, MG, SED #### [facility] [place] [address] Cd Mixer Helper: Reynold [place] DO WBC (Bld) [#/Vol] 5.0 10*3/uL Normal 3.5-11.0 [facility] Comment on above: Performed By: #### C DP, HCG, CP, CRP, LIP, MG, SED #### [facility] [address] [place] [address] Cd Mixer Helper: Reynold [place] DO Abs.Imm.Granulocyte NOT REPORTED Normal 0.00-0.30 [facility] Comment on above: Performed By: #### C DP, HCG, CP, CRP, LIP, MG, SED #### [facility] [address] [place] [address] Cd Mixer Helper: Reynold [place] DO Auto Diff Performed NOT REPORTED Normal [facility] Comment on above: Performed By: #### C DP, HCG, CP, CRP, LIP, MG, SED #### [facility] [address] [place] [address] Cd Mixer Helper: Reynold [place] DO Immature granulocytes (Bld) [#/Vol] NOT REPORTED Normal 0 [facility] Comment on above: Performed By: #### C DP, HCG, CP, CRP, LIP, MG, SED #### [facility] [address] [place] [address] Cd Mixer Helper: Reynold [place] DO NRBC Automated NOT REPORTED Normal [facility] Comment on above: Performed By: #### C DP, HCG, CP, CRP, LIP, MG, SED #### [facility] [address] [place] [address] Cd Mixer Helper: Reynold [place] DO Platelets (Bld) [#/Vol] NOT REPORTED Normal [facility] Comment on above: Performed By: #### C DP, HCG, CP, CRP, LIP, MG, SED #### [facility] [address] [facility] [place] [address] Cd Mixer Helper: Reynold [place] DO RBC morphology finding Nom (Bld) NOT REPORTED Normal [facility] Comment on above: Performed By: #### C DP, HCG, CP, CRP, LIP, MG, SED #### [facility] [address] [facility] [place] [address] Cd Mixer Helper: Reynold [place] DO WBC Morphology NOT REPORTED Normal [facility] Comment on above: Performed By: #### C DP, HCG, CP, CRP, LIP, MG, SED #### [facility] [address] [facility] [place] [address] Cd Mixer Helper: Reynold [place] DO CT ABDOMEN PELVIS W IV CONTR Hong 08-20-2019 CT ABDOMEN PELVIS W IV CONTRAST EXAMINATION: CT OF THE ABDOMEN AND PELVIS WITH CONTRAST 08/20/2019 4:51 am TECHNIQUE: CT of the abdomen and pelvis was performed with the administration of intravenous contrast. Multiplanar reformatted images are provided for review. Dose modulation, iterative reconstruction, and/or weight based adjustment of the mA/kV was utilized to reduce the radiation dose to as low as reasonably achievable. COMPARISON: November 07, 2018. HISTORY: ORDERING SYSTEM PROVIDED HISTORY: history of Crohn's abdominal pain global TECHNOLOGIST PROVIDED HISTORY: history of Crohn's abdominal pain global Reason for Exam: Abdominal pain w/ n/v/d for past few days, pt has a hx of Crohn's Acuity: Acute Relevant Medical/Surgical History: Surgeries to area of interset include appendectomy, cholecystectomy, ovary removal. Best images, patient iritable during scan, rushing tech for scan completion. FINDINGS: Image quality is degraded by motion artifact. Lower Chest: No acute abnormality. Liver: Partial exclusion of the hepatic dome. The liver demonstrates diffuse low attenuation which may relate to hepatic steatosis. No focal suspicious liver mass. Smooth liver contour. Gallbladder and Bile Ducts: Prior cholecystectomy. Spleen: Normal. Adrenal Glands: Normal. Pancreas: Normal. Genitourinary: Multiple bilateral nonobstructing kidney stones. The largest measures 4-5 mm in the inferior right kidney. No suspicious renal mass. No hydronephrosis. No ureteral or bladder stones. Both ureters are normal in course and caliber. Urinary bladder and uterus are normal. Bowel: Normal caliber bowel. No significant diverticular disease. Prior appendectomy. No evidence of active bowel inflammation. Vasculature: Normal. Bones and Soft Tissues: No acute abnormality. Retroperitoneum/Mesen pj: No intraperitoneal free air, ascites or fluid collection. No lymphadenopathy in the abdomen or pelvis. IMPRESSION: 1. Multiple small bilateral nonobstructing kidney stones. No obstructive uropathy. 2. No bowel obstruction. Prior appendectomy. No evidence of active bowel inflammation. 3. Prior cholecystectomy. Interpreted by: Aries Moise DO Signed by: Aries Moise DO 08/20/19 Final result Normal [facility] CT ABDOMEN PELVIS W IV CONTR AST Additional Contrast? Noneon 08-20-2019 1. Multiple small bilateral nonobstructing kidney stones. No obstructive uropathy. 2. No bowel obstruction. Prior appendectomy. No evidence of active bowel inflammation. 3. Prior cholecystectomy. [facility] [place], [place], [facility] Incoming Radiant Results From [email or web address] - 08/20/2019 5:28 AM EST EXAMINATION: CT OF THE ABDOMEN AND PELVIS WITH CONTRAST 08/20/2019 4:51 am TECHNIQUE: CT of the abdomen and pelvis was performed with the administration of intravenous contrast. Multiplanar reformatted images are provided for review. Dose modulation, iterative reconstruction, and/or weight based adjustment of the mA/kV was utilized to reduce the radiation dose to as low as reasonably achievable. COMPARISON: November 07, 2018. HISTORY: ORDERING SYSTEM PROVIDED HISTORY: history of Crohn's abdominal pain global TECHNOLOGIST PROVIDED HISTORY: history of Crohn's abdominal pain global Reason for Exam: Abdominal pain w/ n/v/d for past few days, pt has a hx of Crohn's Acuity: Acute Relevant Medical/Surgical History: Surgeries to area of interset include appendectomy, cholecystectomy, ovary removal. Best images, patient iritable during scan, rushing tech for scan completion. FINDINGS: Image quality is degraded by motion artifact. Lower Chest: No acute abnormality. Liver: Partial exclusion of the hepatic dome. The liver demonstrates diffuse low attenuation which may relate to hepatic steatosis. No focal suspicious liver mass. Smooth liver contour. Gallbladder and Bile Ducts: Prior cholecystectomy. Spleen: Normal. Adrenal Glands: Normal. Pancreas: Normal. Genitourinary: Multiple bilateral nonobstructing kidney stones. The largest measures 4-5 mm in the inferior right kidney. No suspicious renal mass. No hydronephrosis. No ureteral or bladder stones. Both ureters are normal in course and caliber. Urinary bladder and uterus are normal. Bowel: Normal caliber bowel. No significant diverticular disease. Prior appendectomy. No evidence of active bowel inflammation. Vasculature: Normal. Bones and Soft Tissues: No acute abnormality. Retroperitoneum/Mesen pj: No intraperitoneal free air, ascites or fluid collection. No lymphadenopathy in the abdomen or pelvis. IMPRESSION: 1. Multiple small bilateral nonobstructing kidney stones. No obstructive uropathy. 2. No bowel obstruction. Prior appendectomy. No evidence of active bowel inflammation. 3. Prior cholecystectomy. [place] EXAMINATION: CT OF THE ABDOMEN AND PELVIS WITH CONTRAST 08/20/2019 4:51 am TECHNIQUE: CT of the abdomen and pelvis was performed with the administration of intravenous contrast. Multiplanar reformatted images are provided for review. Dose modulation, iterative reconstruction, and/or weight based adjustment of the mA/kV was utilized to reduce the radiation dose to as low as reasonably achievable. COMPARISON: November 07, 2018. HISTORY: ORDERING SYSTEM PROVIDED HISTORY: history of Crohn's abdominal pain global TECHNOLOGIST PROVIDED HISTORY: history of Crohn's abdominal pain global Reason for Exam: Abdominal pain w/ n/v/d for past few days, pt has a hx of Crohn's Acuity: Acute Relevant Medical/Surgical History: Surgeries to area of interset include appendectomy, cholecystectomy, ovary removal. Best images, patient iritable during scan, rushing tech for scan completion. FINDINGS: Image quality is degraded by motion artifact. Lower Chest: No acute abnormality. Liver: Partial exclusion of the hepatic dome. The liver demonstrates diffuse low attenuation which may relate to hepatic steatosis. No focal suspicious liver mass. Smooth liver contour. Gallbladder and Bile Ducts: Prior cholecystectomy. Spleen: Normal. Adrenal Glands: Normal. Pancreas: Normal. Genitourinary: Multiple bilateral nonobstructing kidney stones. The largest measures 4-5 mm in the inferior right kidney. No suspicious renal mass. No hydronephrosis. No ureteral or bladder stones. Both ureters are normal in course and caliber. Urinary bladder and uterus are normal. Bowel: Normal caliber bowel. No significant diverticular disease. Prior appendectomy. No evidence of active bowel inflammation. Vasculature: Normal. Bones and Soft Tissues: No acute abnormality. Retroperitoneum/Mesen pj: No intraperitoneal free air, ascites or fluid collection. No lymphadenopathy in the abdomen or pelvis. [facility] [place], [place] Comp Metabolic Profon 2019 (cont.) Normal [facility] Comment on above: Result Comment: Aver age GFR for 40-49 years old: 99 mL/min/1.73sq m Chronic Kidney Disease: <60 mL/min/1.73sq m Kidney failure: <15 mL/min/1.73sq m eGFR calculated using average adult body mass. Additional eGFR calculator available at: http://www.ilab/multiple_crcl_2012.htm Performed By: #### C DP, HCG, CP, CRP, LIP, MG, SED #### [facility] [address] [facility] [place] [address] Cd Mixer Helper: Reynold Madison DO Albumin [Mass/Vol] 3.9 g/dL Normal 3.5-5.2 [facility] Comment on above: Performed By: #### C DP, HCG, CP, CRP, LIP, MG, SED #### [facility] [address] [facility] [place] [address] Cd Mixer Helper: Reynold Madison DO Alkaline Phos 67 U/L Normal 35-104 [facility] Comment on above: Performed By: #### C DP, HCG, CP, CRP, LIP, MG, SED #### [facility] [address] [facility] [place] [address] Cd Mixer Helper: Reynold Madison DO ALT [Catalytic activity/Vol] 39 U/L High 5-33 [facility] Comment on above: Performed By: #### C DP, HCG, CP, CRP, LIP, MG, SED #### [facility] [address] [place] [address] Cd Mixer Helper: Reynold Madison DO Anion gap [Moles/Vol] 12 mmol/L Normal 9-17 [facility] Comment on above: Performed By: #### C DP, HCG, CP, CRP, LIP, MG, SED #### [facility] [address] [place] [address] Cd Mixer Helper: Reynold Madison DO AST [Catalytic activity/Vol] 23 U/L Normal <32 [facility] Comment on above: Performed By: #### C DP, HCG, CP, CRP, LIP, MG, SED #### [facility] [address] [place] [address] Cd Mixer Helper: Reynold Madison DO Bilirubin Ql (U) 0.32 mg/dL Normal 0.3-1.2 [facility] Comment on above: Performed By: #### C DP, HCG, CP, CRP, LIP, MG, SED #### [facility] [place] [address] Cd Mixer Helper: Reynold Madison DO Calcium [Mass/Vol] 9.3 mg/dL Normal 8.6-10.4 [facility] Comment on above: Performed By: #### C DP, HCG, CP, CRP, LIP, MG, SED #### [facility] [address] [place] [address] Cd Mixer Helper: Reynold Madison DO Chloride [Moles/Vol] 99 mmol/L Normal 98-107 [facility] Comment on above: Performed By: #### C DP, HCG, CP, CRP, LIP, MG, SED #### [facility] [address] [place] [address] Cd Mixer Helper: Reynold Madison DO CO2 [Moles/Vol] 26 mmol/L Normal 20-31 [facility] Comment on above: Performed By: #### C DP, HCG, CP, CRP, LIP, MG, SED #### [facility] [address] [place] [address] Cd Mixer Helper: Reynold Madison DO Creatinine [Mass/Vol] 0.94 mg/dL High 0.50-0.90 [facility] Comment on above: Performed By: #### C DP, HCG, CP, CRP, LIP, MG, SED #### [facility] [address] [place] [address] Cd Mixer Helper: Reynold Madison DO GFR, Amer >60 Normal >60 [facility] Comment on above: Performed By: #### C DP, HCG, CP, CRP, LIP, MG, SED #### [facility] [place] [address] Cd Mixer Helper: Reynold Madison DO GFR,non Amer >60 Normal >60 [facility] Comment on above: Performed By: #### C DP, HCG, CP, CRP, LIP, MG, SED #### [facility] [address] [place] [address] Cd Mixer Helper: Reynold Madison DO Glucose [Mass/Vol] 159 mg/dL High 70-99 [facility] Comment on above: Performed By: #### C DP, HCG, CP, CRP, LIP, MG, SED #### [facility] [address] [place] [address] Cd Mixer Helper: Reynold Madison DO Potassium [Moles/Vol] 4.4 mmol/L Normal 3.7-5.3 [facility] Comment on above: Performed By: #### C DP, HCG, CP, CRP, LIP, MG, SED #### [facility] [address] [place] [address] Cd Mixer Helper: Reynold Madison DO Protein [Mass/Vol] 6.9 g/dL Normal 6.4-8.3 [facility] Comment on above: Performed By: #### C DP, HCG, CP, CRP, LIP, MG, SED #### [facility] [address] [place] [address] Cd Mixer Helper: Reynold Madison DO Sodium [Moles/Vol] 137 mmol/L Normal 135-144 [facility] Comment on above: Performed By: #### C DP, HCG, CP, CRP, LIP, MG, SED #### [facility] [address] [facility] [place] [address] Cd Mixer Helper: Reynold Madison DO Urea nitrogen [Mass/Vol] 13 mg/dL Normal 6-20 [facility] Comment on above: Performed By: #### C DP, HCG, CP, CRP, LIP, MG, SED #### [facility] [address] [facility] [place] [address] Cd Mixer Helper: Reynold Madison DO Albumin/Globulin [Mass ratio] NOT REPORTED Normal 1.0-2.5 [facility] Comment on above: Performed By: #### C DP, HCG, CP, CRP, LIP, MG, SED #### [facility] [facility] [place] [address] Cd Mixer Helper: Reynold Madison DO BUN/CRE Ratio NOT REPORTED Normal 9-20 [facility] Comment on above: Performed By: #### C DP, HCG, CP, CRP, LIP, MG, SED #### [facility] [facility] [place] [address] Cd Mixer Helper: Reynold Madison DO Staging: NOT REPORTED Normal [facility] Comment on above: Performed By: #### C DP, HCG, CP, CRP, LIP, MG, SED #### [facility] [address] [place] [address] Cd Mixer Helper: Reynold Madison DO Comprehensive Metabolic Pane johan 08-20-2019 Albumin [Mass/Vol] 3.9 g/dL 3.5 - 5.2 g/dL [place] Albumin/Globulin [Mass ratio] NOT REPORTED [place] ALP [Catalytic activity/Vol] 67 U/L 35 - 104 U/L [place] ALT [Catalytic activity/Vol] 39 U/L High 5 - 33 U/L [place] Anion gap [Moles/Vol] 12 mmol/L 9 - 17 mmol/L [place] AST [Catalytic activity/Vol] 23 U/L <32 [place] Bilirubin Ql (U) 0.32 mg/dL 0.3 - 1.2 mg/dL [place] Bun/Cre Ratio NOT REPORTED [place] Calcium [Mass/Vol] 9.3 mg/dL 8.6 - 10. 4 mg/dL [place] Chloride [Moles/Vol] 99 mmol/L 98 - 10 7 mmol/L [place] CO2 [Moles/Vol] 26 mmol/L 20 - 31 mmol/L [place] Creatinine [Mass/Vol] 0.94 mg/dL High 0.5 - 0.9 mg/dL [place] GFR >60 >60 mL/min [place], [place] GFR Non- >60 >60 mL/min [place] GFR/1.73 sq M predicted among non-blacks MDRD (S/P/Bld) [Vol rate/Area] [place] Comment on above: Average GFR for 40-4 9 years old: 99 mL/min/1.73sq m Chronic Kidney Disease: <60 mL/min/1.73sq m Kidney failure: <15 mL/min/1.73sq m eGFR calculated using average adult body mass. Additional eGFR calculator available at: http://www.ams AG.Palette/multiple_crcl_2012.htm GFR/1.73 sq M predicted among non-blacks MDRD (S/P/Bld) [Vol rate/Area] NOT REPORTED [place] Glucose [Mass/Vol] 159 mg/dL High 70 - 99 mg/dL [place] Potassium [Moles/Vol] 4.4 mmol/L 3.7 - 5.3 mmol/L [place] Protein [Mass/Vol] 6.9 g/dL 6.4 - 8.3 g/dL [place] Sodium [Moles/Vol] 137 mmol/L 135 - 144 mmol/L [place] Urea nitrogen [Mass/Vol] 13 mg/dL 6 - 20 mg/dL [place] Drug Scr, Abuse, Uron 2019 Amphetamine(s),Ur Negative Normal NEG [facility] Comment on above: Result Comment: (Positive cutoff 1000 ng/mL) Performed By: #### U A, SYLWIA #### [facility] [address] [place] [address] Cd Mixer Helper: Reynold Madison DO Barbiturate(s),Ur Negative Normal [facility] Comment on above: Result Comment: (Positive cutoff 200 ng/mL) Performed By: #### U A, SYLWIA #### [facility] [address] [place] [address] Cd Mixer Helper: Ryenold Madison DO Base excess Calc (Bld) [Moles/Vol] Negative Normal [facility] Comment on above: Result Comment: (Positive cutoff 300 ng/mL) Performed By: #### U A, SYLWIA #### [facility] [address] [place] [address] Cd Mixer Helper: Reynold Madison DO Benzodiazepine(s) Negative Normal NEG [facility] Comment on above: Result Comment: (Positive cutoff 200 ng/mL) Performed By: #### U A, SYLWIA #### [facility] [address] [place] [address] Cd Mixer Helper: Reynold Madison DO Cannabinoid(s),Ur Negative Normal NEG [facility] Comment on above: Result Comment: (Positive cutoff 50 ng/mL) Performed By: #### U A, SYLWIA #### [facility] [address] [place] [address] Cd Mixer Helper: Reynold Madison DO Interpretive Info Assay provides medical screening only. The absence of expected drug(s) and/or Normal [facility] Comment on above: Result Comment: meta bolite(s) may indicate diluted or adulterated urine, limitations of testing or timing of collection. Testing for legal purposes should be confirmed by another method. To request confirmation of test result, please call the lab within 7 days of sample submission. Performed By: #### U A, SYLWIA #### [facility] [address] [place] [address] Cd Mixer Helper: Reynold Madison DO Methadone Ql (U) Negative Normal NEG [facility] Comment on above: Result Comment: (Positive cutoff 300 ng/mL) Performed By: #### U A, SYLWIA #### [facility] [address] [place] [address] Cd Mixer Helper: Reynold Madison DO Opiate(s), Ur Negative Normal NEG [facility] Comment on above: Result Comment: (Positive cutoff 300 ng/mL) Performed By: #### U A, SYLWIA #### [facility] [address] [place] [address] Cd Mixer Helper: Reynold Madison DO Oxycodone, Urine Negative Normal NEG [facility] Comment on above: Result Comment: (Positive cutoff 100 ng/mL) Performed By: #### U A, SYLWIA #### [facility] [address] [place] [address] Cd Mixer Helper: Reynold Madison DO Phencyclidine, Ur Negative Normal NEG [facility] Comment on above: Result Comment: (Positive cutoff 25 ng/mL) Performed By: #### U A, SYLWIA #### [facility] [address] [place] [address] Cd Mixer Helper: Reynold Madison DO Buprenorphrine, Ur NOT REPORTED Normal NEG [facility] Comment on above: Performed By: #### U A, SYLWIA #### [facility] [address] [place] [address] Cd Mixer Helper: Reynold Madison DO MDMA, Urine NOT REPORTED Normal NEG [facility] Comment on above: Performed By: #### U A, SYLWIA #### [facility] [address] [place] [address] Cd Mixer Helper: Reynold Madison DO Methamphetamine, Ur NOT REPORTED Normal NEG [facility] Comment on above: Performed By: #### U A, SYLWIA #### [facility] [address] [place] [address] Cd Mixer Helper: Reynold Madison DO Propoxyphene,Urine NOT REPORTED Normal NEG [facility] Comment on above: Performed By: #### U A, SYLWIA #### [facility] [address] [place] [address] Cd Mixer Helper: Reynold Madison DO Tricyclic antidepressants Screen Ql (U) NOT REPORTED Normal NEG [facility] Comment on above: Performed By: #### U A, SYLWIA #### [facility] [address] [place] [address] Cd Mixer Helper: Reynold Madison DO HCG Qualitative, Serumon hCG Qual Negative NEGATIVE [facility], [place] Comment on above: Specimens with hCG l evels near the threshold of the test (25 mIU/mL) may give a negative or indeterminate result. In such cases, another test should be performed with a new specimen in 48-72 hours. If early is suspected clinically in this setting, correlation with quantitative serum b-hCG level is suggested. HCG Screen, Bloodon 08-20-19 20 HCG Qn Negative Normal NEG [facility] Comment on above: Result Comment: Spec imens with hCG levels near the threshold of the test (25 mIU/mL) may give a negative or indeterminate result. In such cases, another test should be performed with a new specimen in 48-72 hours. If early is suspected clinically in this setting, correlation with quantitative serum b-hCG level is suggested. Performed By: #### C DP, HCG, CP, CRP, LIP, MG, SED #### [facility] [address] [facility] [place] [address] Cd Mixer Helper: Reynold Madison DO Lipaseon 08-20-2019 Lipase [Catalytic activity/Vol] 18 U/L Normal 13-60 [facility] Comment on above: Performed By: #### C DP, HCG, CP, CRP, LIP, MG, SED #### [facility] [address] [facility] [place] [address] Cd Mixer Helper: Reynold Madison DO Lipase [Catalytic activity/Vol] 18 U/L 13 - 60 U/L [place] Magnesiumon 08-20-2019 Magnesium [Mass/Vol] 1.9 mg/dL Normal 1.6-2.6 [facility] Comment on above: Performed By: #### C DP, HCG, CP, CRP, LIP, MG, SED #### [facility] [address] [facility] [place] [address] Cd Mixer Helper: Reynold Madison DO Magnesium [Mass/Vol] 1.9 mg/dL 1.6 - 2 .6 mg/dL [place] Otheron 08-20-2019 Interpretation and review of laboratory results Abnormal [place] Immature granulocytes (Bld) [#/Vol] NOT REPORTED [place] Sedimentation Rateon 020 Sedimentation Rate 19 mm Normal 0-20 [facility] Comment on above: Performed By: #### C DP, HCG, CP, CRP, LIP, MG, SED #### [facility] [address] [place] [address] Cd Mixer Helper: Reynold Madison DO Sed Rate 19 mm 0 - 20 mm [facility] [place] Urinalysison 08-20-2019 Bilirubin Urine Negative NEGATIVE [facility] [place] Color, UA YELLOW YELLOW [facility] Glucose, Ur Negative NEGATIVE [facility] Ketones Ql (U) Negative NEGATIVE [facility] [place] Leukocyte esterase Test strip Ql (U) Negative NEGATIVE [facility] Nitrite, Urine Negative NEGATIVE [facility] pH, UA 5.5 [facility] Protein (U) [Mass/Vol] Negative NEGATIVE Me [facility], [place] Specific [place], UA 1.018 [facility], [place] Turbidity UA CLEAR CLEAR [place], [place] Urinalysis Comments Microscopic exam not performed based on chemical results unless requested in original order. [facility], [place] Urine Hgb Negative NEGATIVE [facility] Urobilinogen, Urine Normal Normal [facility] [place] Urinalysis, Routineon 7908 Acetoacetic Acid,Ur Negative Normal NEG [facility] Comment on above: Performed By: #### U A, SYLWIA #### [facility] [place] [address] Cd Mixer Helper: Reynold Madison DO Bilirubin, SemiQt,Ur Negative Normal NEG [facility] Comment on above: Performed By: #### U A, SYLWIA #### [facility] [address] [place] [address] Cd Mixer Helper: Reynold Madison DO Color (U) YELLOW Normal YEL [facility] Comment on above: Performed By: #### U A, SYLWIA #### [facility] [address] [place] [address] Cd Mixer Helper: Reynold Madison DO Comment Microscopic exam not performed based on chemical results unless requested in Normal [facility] Comment on above: Result Comment: orig inal order. Performed By: #### U A, SYLWIA #### [facility] [address] [place] [address] Cd Mixer Helper: Reynold Madison DO Glucose Ql (U) Negative Normal NEG [facility] Comment on above: Performed By: #### U A, SYLWIA #### [facility] [address] [place] [address] Cd Mixer Helper: Reynold Madison DO Hemoglobin, Ur Negative Normal NEG [facility] Comment on above: Performed By: #### U A, SYLWIA #### [facility] [address] [place] [address] Cd Mixer Helper: Reynold Madison DO Leukocyte esterase Test strip Ql (U) Negative Normal NEG [facility] Comment on above: Performed By: #### U A, SYLWIA #### [facility] [address] [place] [address] Cd Mixer Helper: Reynold Madison DO Nitrite,Ur Negative Normal NEG [facility] Comment on above: Performed By: #### U A, SYLWIA #### [facility] [address] [place] [address] Cd Mixer Helper: Reynold Madison DO pH (U) 5.5 [pH] Normal 5.0-8.0 [facility] Comment on above: Performed By: #### U A, SYLWIA #### [facility] [address] [place] [address] Cd Mixer Helper: Reynold Madison DO Protein Ql (U) Negative Normal NEG [facility] Comment on above: Performed By: #### U A, SYLWIA #### [facility] [address] [facility] [place] [address] Cd Mixer Helper: Reynold Madison DO Specific gravity (U) [Rel density] 1.018 Normal 1.000-1.030 [facility] Comment on above: Performed By: #### U A, SYLWIA #### [facility] [place] [address] Cd Mixer Helper: Reynold Madison DO Turbidity CLEAR Normal CLEAR [facility] Comment on above: Performed By: #### U A, SYLWIA #### [facility] [place] [address] Cd Mixer Helper: Reynold Madison DO Urobilinogen,Ur Normal Normal NORM [facility] Comment on above: Performed By: #### U A, SYLWIA #### [facility] [place] [address] Cd Mixer Helper: Reynold Madison DO Urine Drug Screenon 08-20-19 20 Amphetamine Screen, Ur Negative NEGATIVE [facility] [place] Comment on above: (Positive cutoff 1000 ng/mL) Barbiturate Screen, Ur Negative NEGATIVE [facility] [place] Comment on above: (Positive cutoff 200 ng/mL) Benzodiazepine Screen, Urine Negative NEGATIVE [facility], [place] Comment on above: (Positive cutoff 200 ng/mL) Buprenorphine Urine NOT REPORTED NEGATIVE [facility] Cannabinoid Scrn, Ur Negative NEGATIVE [facility] [place] Comment on above: (Positive cutoff 50 ng/mL) Cocaine Metabolite, Urine Negative NEGATIVE [facility] [place] Comment on above: (Positive cutoff 300 ng/mL) MDMA, Urine NOT REPORTED NEGATIVE [facility] Methadone Screen, Urine Negative NEGATIVE M [facility] Comment on above: (Positive cutoff 300 ng/mL) Methamphetamine, Urine NOT REPORTED NEGATIVE [facility]- [place] Opiates, Urine Negative NEGATIVE [facility], [place] Comment on above: (Positive cutoff 300 ng/mL) Oxycodone Screen, Ur Negative NEGATIVE [facility]ID Rankin Comment on above: (Positive cutoff 100 ng/mL) Phencyclidine, Urine Negative NEGATIVE [facility] Rankin Comment on above: (Positive cutoff 25 ng/mL) Propoxyphene, Urine NOT REPORTED NEGATIVE DAVID Lou Test Information Assay provides medical screening only. The absence of expected drug(s) and/or metabolite(s) may indicate diluted or adulterated urine, limitations of testing or timing of collection. DAVID Ramos Comment on above: Testing for legal pu rposes should be confirmed by another method. To request confirmation of test result, please call the lab within 7 days of sample submission. Tricyclic Antidepressants, Urine NOT REPORTED NEGATIVE DAVID Ramos ED Clinical Summaryon 2019 ED Clinical Summary [address] [address] ED Clinical Summary Person Information Name: Nicki Oviedo [facility] Age: 44 Years : 1975 Sex: Female PCP: Marital Status: Single Phone: Race: White Ethnicity: Not or Language: Equ[place] Visit Reason: Abdominal pain; Diarrhea; Diarrhea - Adult Acuity: 3 Enc Type: Emergency Med Service: Emergency Medicine Arrival: 08/12/2019 04:25:28 Discharge: 08/12/2019 04:59:00 LOS: 000 00:34 Checkin: 08/12/2019 04:25:28 Checkout: 08/12/2019 04:59:00 Dispo Type: Home or Self Care Address: [address] [place] [address] Provider Notes: Diagnosis: 1:Abdominal pain; 2:Diarrhea; 3:Crohn disease Problems No Problems Documented Smoking Status: Smoking Status Never (less than 100 in lifetime) Functional Status: Sensory Deficits: History of Falls: Mobility Assistance Prior to Admission: ADLs: Current Level of Assistance for Self-Care/Mobility: Cognitive Status: Allergies NSAIDs (swelling) Compazine (shakiness) Phenergan (Shakiness) Reglan (Shakiness) contrast media (gadolinium-based) (itching) Laboratory or Other Results This Visit (last charted value for your 08/12/2019 visit) No Laboratory or Other Results This Visit Measurements: Height: Weight: 148.9 kg Blood Pressure: /90 mmHg BMI: Procedures No Procedures Documented Immunizations No Immunizations Documented This Visit Final Med List: New Medications Printed Prescriptions predniSONE (predniSONE 50 mg oral tablet) 1 Tabs Oral (given by mouth) every day for 5 Days. Refills: 0. Last Dose: ____ Printed Prescriptions predniSONE (predniSONE 50 mg oral tablet) 1 Tabs Oral (given by mouth) every day for 5 Days. Refills: 0. Care Team Members: Attending Physician: Xander Barone III, MD Consulting Physician: Referring Physician: Provider Role Assigned Unassigned Xander Barone III, MD ED Provider 08/12/2019 04:28:31 Ivis Santos ED Nurse 08/12/2019 04:31:05 Follow up: With: Address: When: Your own Doctor Within 2 to 4 days Discharge Orders: Discharge Patient 08/12/19 4:36:00 EST, Discharge to Home, Self, Abdominal pain Patient Education Information: DIARRHEA, Viral (6y-Adult); Abdominal Pain, Adult [facility] Poison Help line: . [facility] Hotline: [place] Tobacco Quit Line: [place], [place]) [address]: [phone] [place], [place]) [address]: [phone] [facility] [address] [place], [place]: [phone] Normal [facility] ED Note-Physicianon 08-12-19 ED Note-Physician Chief Complaint Pt reports I am having a crohn's flare up and my abdomen is hurting and I have had diarrhea for 3 days. History of Present Illness Patient presents with c/o RUQ abdominal pain and nausea, vomiting, diarrhea. She states that she can't keep her usual medications down and is requesting some steroids and something for nausea. She has a history of Crohn's Disease. The pain is a crampy dull ache, non-radiating, nothing makes it better/worse. Review of Systems GENERAL: [Negative for weakness, malaise] EYES: [Negative for injury, pain, redness, discharge] ENT: [Negative for injury, pain , sore throat and discharge] NECK: [Negative for injury, pain, swelling, and stiffness] CARDIOVASCULAR: [Negative for chest pain, palpitations] RESPIRATORY: [Negative for shortness of breath, cough, wheezing, and pleuritic chest pain] ABDOMEN/GI: [Negative for pain, nausea, vomiting] BACK: [Negative for injury or bruising] : [Negative for injury, bleeding, discharge, frequency, hematuria, urgency] MUSCULOSKELETAL: [Negative for arthralgias, injury and deformity] SKIN: [Negative for injury, rash, discoloration] NEURO: [Negative for focal weakness, numbness, tingling, and seizure] ALLERGY/IMMUNOLOGY: [Negative for hives, rash, and new allergies] ENDOCRINE: [Negative for neck swelling, polydipsia, polyuria, marked weight changes, heat/cold intolerance] HEMATOLOGIC/LYMPHATIC : [Negative for swollen lymph nodes, abnormal bleeding, and unusual bruising] Physical Exam CONSTITUTIONAL: [well appearing in no acute distress] SKIN: [Warm, dry, and intact without rash] EYES: [extraocular movements are grossly intact, clear conjunctiva] HENT: [Normocephalic, atraumatic, moist mucus membranes] NECK: [no obvious swelling, normal range of motion] PULMONARY: [normal chest rise and fall, no respiratory distress or stridor CARDIOVASCULAR: [regular rate, distal extremities are warm and well perfused] GASTROINSTESTINAL: [mild RUQ tenderness , no rebound or guarding, no distention. GENITOURINARY: [deferred] NEUROLOGIC: [normal speech, moves all extremities] MUSCULOSKELETAL: [no gross deformities, atraumatic] PSYCHIATRIC: [normal mood and affect] Vitals & Measurements T: 36.4 ?C (Oral) RR: 16 BP: 168/90 SpO2: 94% DOSE WT: 148.9 kg Additional Vitals Peripheral Pulse Rate: 93 bpm Procedure No qualifying data available. ASA Documentation Assessment/Plan 1. Abdominal pain Ordered: Discharge Patient 2. Diarrhea Ordered: Discharge Patient 3. Crohn disease Ordered: Discharge Patient Orders: predniSONE, 1 tabs, Oral, Daily, X 5 days, # 5 tabs, 0 Refill(s), 08/17/19 4:41:00 EST Problem List/Past Medical History Ongoing No qualifying data Historical No qualifying data Medications Home No active home medications Inpatient No active inpatient medications Prescriptions predniSONE 50 mg oral tablet, 50 mg, 1 tabs, Oral, Daily Allergies Compazine (shakiness) NSAIDs (swelling) Phenergan (Shakiness) Reglan (Shakiness) contrast media (gadolinium-based) (itching) Social History Alcohol Never Substance Abuse Denies All Tobacco Never (less than 100 in lifetime) Use:. Diagnostic Results XRay No qualifying data available (XRay) Computerized Tomagraphy No qualifying data available (CT) Ultrasound No qualifying data available (Ultrasound) Magnetic Resonance Imaging No qualifying data available (MRI) Electronically signed by Xander Barone III, MD 08/12/19 05:15 EST Normal [facility] CBC with Diffon 06-12-2019 Abs. Basophil 0.06 k/uL Normal 0.00-0.20 [facility] Comment on above: Performed By: #### C DP, HCG, CP, LIP, IPF #### [facility] [address] [place] [phone] Cd Mixer Helper: Cooper Castro MD Abs.Imm.Granulocyte 0.05 k/uL Normal 0.00-0.30 [facility] Comment on above: Performed By: #### C DP, HCG, CP, LIP, IPF #### [facility] [address] [place] [address] [phone] Cd Mixer Helper: Cooper Castro MD Abs.Neutrophil (Seg) 6.57 k/uL Normal 1.50-8.10 [facility] Comment on above: Performed By: #### C DP, HCG, CP, LIP, IPF #### [facility] [address] [place] [address] [phone] Cd Mixer Helper: Cooper Castro MD Basophils/100 WBC (Bld) 1 % Normal 0-[address] [facility] Comment on above: Performed By: #### C DP, HCG, CP, LIP, IPF #### [address] [address] Cd Mixer Helper: Cooper Castro MD Eosinophils (Bld) [#/Vol] 0.22 10*3/uL Normal 0.00-0.44 [facility] Comment on above: Performed By: #### C DP, HCG, CP, LIP, IPF #### [address] [address] Cd Mixer Helper: Cooper Castro MD Eosinophils/100 WBC (Bld) 2 % Normal 1-4 [facility] Comment on above: Performed By: #### C DP, HCG, CP, LIP, IPF #### [address] [address] Cd Mixer Helper: Cooper Castro MD Erythrocyte distribution width (RBC) [Ratio] 12.6 % Normal 11.8-14.4 [facility] Comment on above: Performed By: #### C DP, HCG, CP, LIP, IPF #### [address] [address] Cd Mixer Helper: Cooper Castro MD Hematocrit (Bld) [Volume fraction] 42.3 % Normal 36.3-47.1 [facility] Comment on above: Performed By: #### C DP, HCG, CP, LIP, IPF #### [address] [address] Cd Mixer Helper: Cooper Castro MD Hemoglobin (Bld) [Mass/Vol] 13.5 g/dL Normal 11.9-15.1 [facility] Comment on above: Performed By: #### C DP, HCG, CP, LIP, IPF #### [address] [address] Cd Mixer Helper: Cooper Castro MD Immature granulocytes (Bld) [#/Vol] 1 % High 0 [facility] Comment on above: Performed By: #### C DP, HCG, CP, LIP, IPF #### [address] [address] Cd Mixer Helper: Cooper Castro MD Lymphocytes (Bld) [#/Vol] 2.82 10*3/uL Normal 1.10-3.70 [facility] Comment on above: Performed By: #### C DP, HCG, CP, LIP, IPF #### [address] [address] Cd Mixer Helper: Cooper Castro MD Lymphocytes/100 WBC (Bld) 27 % Normal 24-43 [facility] Comment on above: Performed By: #### C DP, HCG, CP, LIP, IPF #### [address] [address] Cd Mixer Helper: Cooper Castro MD MCH (RBC) [Entitic mass] 29.7 pg Normal 25.2-33.5 [facility] Comment on above: Performed By: #### C DP, HCG, CP, LIP, IPF #### [address] [address] Cd Mixer Helper: Cooper Castro MD MCHC (RBC) [Mass/Vol] 31.9 g/dL Normal 28.4-34.8 [facility] Comment on above: Performed By: #### C DP, HCG, CP, LIP, IPF #### [address] [address] Cd Mixer Helper: Cooper Castro MD MCV (RBC) [Entitic vol] 93.2 fL Normal 82.6-102.[address] [facility] Comment on above: Performed By: #### C DP, HCG, CP, LIP, IPF #### [address] [address] Cd Mixer Helper: Cooper Castro MD Monocytes (Bld) [#/Vol] 0.94 10*3/uL Normal 0.10-1.20 [facility] Comment on above: Performed By: #### C DP, HCG, CP, LIP, IPF #### [address] [address] Cd Mixer Helper: Cooper Castro MD Monocytes/100 WBC (Bld) 9 % Normal 3-[address] [facility] Comment on above: Performed By: #### C DP, HCG, CP, LIP, IPF #### [place] [address] Cd Mixer Helper: Cooper Castro MD Neutrophil (Seg) 62 % Normal 36-65 [facility] Comment on above: Performed By: #### C DP, HCG, CP, LIP, IPF #### [place] [address] Cd Mixer Helper: Cooper Castro MD NRBC Automated 0.0 per 100 WBC Normal 0.0 [facility] Comment on above: Performed By: #### C DP, HCG, CP, LIP, IPF #### [address] [address] Cd Mixer Helper: Cooper Castro MD Platelet mean volume (Bld) [Entitic vol] 9.1 fL Normal 8.1-13.5 [facility] Comment on above: Performed By: #### C DP, HCG, CP, LIP, IPF #### [address] [address] Cd Mixer Helper: Cooper Castro MD Platelets (Bld) [#/Vol] 300 10*3/uL Normal 138-453 [facility] Comment on above: Performed By: #### C DP, HCG, CP, LIP, IPF #### [address] [address] Cd Mixer Helper: Cooper Castro MD RBC (Bld) [#/Vol] 4.54 10*6/uL Normal 3.95-5.11 [facility] Comment on above: Performed By: #### C DP, HCG, CP, LIP, IPF #### [address] [address] Cd Mixer Helper: Cooper Castro MD WBC (Bld) [#/Vol] 10.7 10*3/uL Normal 3.5-11.3 [facility] Comment on above: Performed By: #### C DP, HCG, CP, LIP, IPF #### [address] [address] Cd Mixer Helper: Cooper Castro MD Auto Diff Performed NOT REPORTED Normal [facility] Comment on above: Performed By: #### C DP, HCG, CP, LIP, IPF #### [address] [address] Cd Mixer Helper: Cooper Castro MD Platelets (Bld) [#/Vol] NOT REPORTED Normal [facility] Comment on above: Performed By: #### C DP, HCG, CP, LIP, IPF #### [address] [address] Cd Mixer Helper: Cooper Castro MD RBC morphology finding Nom (Bld) NOT REPORTED Normal [facility] Comment on above: Performed By: #### C DP, HCG, CP, LIP, IPF #### [facility] [address] [place] [phone] Cd Mixer Helper: Cooper Castro MD WBC Morphology NOT REPORTED Normal [facility] Comment on above: Performed By: #### C DP, HCG, CP, LIP, IPF #### [address] [address] Cd Mixer Helper: Cooper Castro MD Comp Metabolic Profon 2018 (cont.) Normal [facility] Comment on above: Result Comment: Aver age GFR for 40-49 years old: 99 mL/min/1.73sq m Chronic Kidney Disease: <60 mL/min/1.73sq m Kidney failure: <15 mL/min/1.73sq m eGFR calculated using average adult body mass. Additional eGFR calculator available at: http://www.ams [employer].Palette/multiple_crcl_2011.htm Performed By: #### C DP, HCG, CP, LIP, IPF #### [facility] [address] [place] [address] Cd Mixer Helper: Cooper Castro MD Alkaline Phos 69 U/L Normal 35-104 [facility] Comment on above: Performed By: #### C DP, HCG, CP, LIP, IPF #### [facility] [address] [place] [phone] Cd Mixer Helper: Cooper Castro MD Bilirubin Ql (U) 0.51 mg/dL Normal 0.3-1.2 [facility] Comment on above: Performed By: #### C DP, HCG, CP, LIP, IPF #### [facility] [employer] [address] [place] [phone] Cd Mixer Helper: Cooper Castro MD GFR, Amer >60 Normal >60 [facility] Comment on above: Performed By: #### C DP, HCG, CP, LIP, IPF #### [facility] [address] [place] [address] Cd Mixer Helper: Cooper Castro MD GFR,non Amer >60 Normal >60 [facility] Comment on above: Performed By: #### C DP, HCG, CP, LIP, IPF #### [facility] [address] [place] [address] Cd Mixer Helper: Cooper Castro MD BUN/CRE Ratio NOT REPORTED Normal 9-20 [facility] Comment on above: Performed By: #### C DP, HCG, CP, LIP, IPF #### [address] [address] Cd Mixer Helper: Cooper Castro MD Staging: NOT REPORTED Normal [facility] Comment on above: Performed By: #### C DP, HCG, CP, LIP, IPF #### [address] [address] Cd Mixer Helper: Cooper Castro MD HCG, ,Urineon 06-12 Beta HCG ( test) Ql (U) Negative Normal NEG [facility] Comment on above: Result Comment: Spec imens with hCG levels near the threshold of the test (25 mIU/mL) may give a negative or indeterminate result. In such cases, another test should be performed with a new specimen in 48-72 hours. If early is suspected clinically in this setting, correlation with quantitative serum b-hCG level is suggested. Performed By: #### C DP, HCG, CP, LIP, IPF #### [address] [address] Cd Mixer Helper: Cooper Castro MD Urinalysis, Routineon 2018 Acetoacetic Acid,Ur Negative Normal NEG [facility] Comment on above: Performed By: #### C DP, HCG, CP, LIP, IPF #### [address] [address] Cd Mixer Helper: Cooper Castro MD Bilirubin, SemiQt,Ur Negative Normal NEG [facility] Comment on above: Performed By: #### C DP, HCG, CP, LIP, IPF #### [facility] [employer] [address] [place] [phone] Cd Mixer Helper: Cooper Castro MD Color (U) YELLOW Normal YEL [facility] Comment on above: Performed By: #### C DP, HCG, CP, LIP, IPF #### [facility] [employer] [address] [place] [phone] Cd Mixer Helper: Cooper Castro MD Comment Microscopic exam not performed based on chemical results unless requested in Normal [facility] Comment on above: Result Comment: orig inal order. Performed By: #### C DP, HCG, CP, LIP, IPF #### [address] [address] Cd Mixer Helper: Cooper Castro MD Glucose Ql (U) Negative Normal NEG [facility] Comment on above: Performed By: #### C DP, HCG, CP, LIP, IPF #### [facility] [employer] [address] [place] [address] Cd Mixer Helper: Cooper Castro MD Hemoglobin, Ur Negative Normal NEG [facility] Comment on above: Performed By: #### C DP, HCG, CP, LIP, IPF #### [address] [address] Cd Mixer Helper: Cooper Castro MD Leukocyte esterase Test strip Ql (U) Negative Normal NEG [facility] Comment on above: Performed By: #### C DP, HCG, CP, LIP, IPF #### [address] [address] Cd Mixer Helper: Cooper Castro MD Nitrite,Ur Negative Normal NEG [facility] Comment on above: Performed By: #### C DP, HCG, CP, LIP, IPF #### [address] [address] Cd Mixer Helper: Cooper Castro MD pH (U) 5.5 [pH] Normal 5.0-8.0 [facility] Comment on above: Performed By: #### C DP, HCG, CP, LIP, IPF #### [facility] [employer] [address] [place] [address] Cd Mixer Helper: Cooper Castro MD Protein Ql (U) Negative Normal NEG [facility] Comment on above: Performed By: #### C DP, HCG, CP, LIP, IPF #### [facility] [employer] [address] [place] [address] Cd Mixer Helper: Cooper Castro MD Specific gravity (U) [Rel density] 1.018 Normal 1.005-1.030 [facility] Comment on above: Performed By: #### C DP, HCG, CP, LIP, IPF #### [facility] [employer] [address] [place] [address] Cd Mixer Helper: Cooper Castro MD Turbidity CLEAR Normal CLEAR [facility] Comment on above: Performed By: #### C DP, HCG, CP, LIP, IPF #### [facility] [employer] [address] [place] [address] Cd Mixer Helper: Cooper Castro MD Urobilinogen,Ur Normal Normal NORM [facility] Comment on above: Performed By: #### C DP, HCG, CP, LIP, IPF #### [facility] [employer] [address] [place] [address] Cd Mixer Helper: Cooper Castro MD XR ACUTE ABD SERIES CHEST 1 VWon 06-12-2019 XR ACUTE ABD SERIES CHEST 1 VW EXAMINATION: TWO XRAY VIEWS OF THE ABDOMEN AND SINGLE XRAY VIEW OF THE CHEST 06/11/2019 11:49 pm COMPARISON: Acute abdominal series 11/07/2018 HISTORY: ORDERING SYSTEM PROVIDED HISTORY: abdominal pain TECHNOLOGIST PROVIDED HISTORY: abdominal pain Reason for Exam: c/o crohns flare up abdominal pain hx: crohns Acuity: Acute Type of Exam: Initial FINDINGS: Normal heart size. Normal pulmonary vascularity. There is no focal consolidation. No evidence of pleural effusion or pneumothorax. Air is distributed in small and large bowel loops throughout the abdomen. No dilated bowel. No air fluid levels. No free intraabdominal air. Small amount of stool throughout the colon. Right upper quadrant cholecystectomy clips. IMPRESSION: No acute cardiopulmonary process. Nonobstructed bowel-gas pattern. Small amount of stool throughout the colon. Interpreted by: Alvarado Brandon MD Signed by: Alvarado Brandon MD 06/12/19 Final result Normal [facility] XR Acute Abd Series Chest 1 VWOrdered By: Xander Lazaro on 06-12-2019 No acute cardiopulmonary process. Nonobstructed bowel-gas pattern. Small amount of stool throughout the colon. [employer] Phone: EXAMINATION: TWO XRA Y VIEWS OF THE ABDOMEN AND SINGLE XRAY VIEW OF THE CHEST 06/11/2019 11:49 pm COMPARISON: Acute abdominal series 11/07/2018 HISTORY: ORDERING SYSTEM PROVIDED HISTORY: abdominal pain TECHNOLOGIST PROVIDED HISTORY: abdominal pain Reason for Exam: c/o crohns flare up abdominal pain hx: crohns Acuity: Acute Type of Exam: Initial FINDINGS: Normal heart size. Normal pulmonary vascularity. There is no focal consolidation. No evidence of pleural effusion or pneumothorax. Air is distributed in small and large bowel loops throughout the abdomen. No dilated bowel. No air fluid levels. No free intraabdominal air. Small amount of stool throughout the colon. Right upper quadrant cholecystectomy clips. [employer] Phone: Ellis, Mhpn Incoming Radiant Results From [employer] - 06/12/2019 12:05 AM EST EXAMINATION: TWO XRAY VIEWS OF THE ABDOMEN AND SINGLE XRAY VIEW OF THE CHEST 06/11/2019 11:49 pm COMPARISON: Acute abdominal series 11/07/2018 HISTORY: ORDERING SYSTEM PROVIDED HISTORY: abdominal pain TECHNOLOGIST PROVIDED HISTORY: abdominal pain Reason for Exam: c/o crohns flare up abdominal pain hx: crohns Acuity: Acute Type of Exam: Initial FINDINGS: Normal heart size. Normal pulmonary vascularity. There is no focal consolidation. No evidence of pleural effusion or pneumothorax. Air is distributed in small and large bowel loops throughout the abdomen. No dilated bowel. No air fluid levels. No free intraabdominal air. Small amount of stool throughout the colon. Right upper quadrant cholecystectomy clips. IMPRESSION: No acute cardiopulmonary process. Nonobstructed bowel-gas pattern. Small amount of stool throughout the colon. [email or web address] Work Phone: CBC Auto DifferentialOrdered By: Xander Lazaro on 06-11-2019 [employer] # 0.22 [employer] [facility] Work Phone: Absolute Immature Granulocyte 0.05 [email or web address] Work Phone: Absolute Lymph # 2.82 [facility] Work Phone: [employer] [place] # 0.94 [facility] Work Phone: Basophils (Bld) [#/Vol] 0.06 10*3/uL [employer] Phone: Basophils/100 WBC (Bld) 1 % 0 - 2 % [employer] Phone: Differential Type NOT REPORTED [employer] Phone: Eosinophils/100 WBC (Bld) 2 % 1 - 4 % [employer] Phone: Erythrocyte distribution width (RBC) [Ratio] 12.6 % 11.8 - 14.4 % [employer] Phone: Hematocrit (Bld) [Volume fraction] 42.3 % 36.3 - 47.1 % [employer] Phone: Hemoglobin (Bld) [Mass/Vol] 13.5 g/dL 11.9 - 15.1 g/dL [employer] Phone: Immature granulocytes/100 WBC (Bld) 1 % High 0 [employer] Phone: Interpretation and review of laboratory results Abnormal [employer] Phone: Lymphocytes/100 WBC (Bld) 27 % 24 - 43 % [employer] Phone: MCH (RBC) [Entitic mass] 29.7 pg 25.2 - 33.5 pg [employer] Phone: MCHC (RBC) [Mass/Vol] 31.9 g/dL 28.4 - 34.8 g/dL [employer] Phone: MCV (RBC) [Entitic vol] 93.2 fL 82.6 - 102.9 fL [employer] Phone: Monocytes/100 WBC (Bld) 9 % 3 - 12 % [employer] Phone: NRBC Automated 0.0 0.0 per 100 WBC [employer] Phone: Platelet Estimate NOT REPORTED [employer] Phone: Platelet mean volume (Bld) [Entitic vol] 9.1 fL 8.1 - 13.5 fL [employer] Phone: Platelets (Bld) [#/Vol] 300 10*3/uL [employer] Phone: RBC (Bld) [#/Vol] 4.54 10*6/uL 3.95 - 5.1 1 m/uL [employer] Phone: RBC morphology finding Nom (Bld) NOT REPORTED [employer] Phone: Segmented neutrophils/100 WBC (Bld) 62 % 36 - 65 % [email or web address] Work Phone: Segs Absolute 6.57 [employer] Work Phone: WBC (Bld) [#/Vol] 10.7 10*3/uL [email or web address] Work Phone: WBC Morphology NOT REPORTED [facility] Work Phone: Comp Metabolic ProfOrdered B y: Xander Lazaro on 06-11-2019 Albumin [Mass/Vol] 3.5 g/dL Normal 3.5-5.2 [employer] Phone: Comment on above: Performed By: #### C DP, HCG, CP, LIP, IPF #### [facility] [address] [place], [place] [id number] Cd Mixer Helper: Cooper Castro MD Albumin/Globulin [Mass ratio] 1.0 {ratio} Normal 1.0-2.5 [email or web address] Work Phone: Comment on above: Performed By: #### C DP, HCG, CP, LIP, IPF #### [facility] [address] [place] [address] Cd Mixer Helper: Cooper Castro MD ALT [Catalytic activity/Vol] 27 U/L Normal 5-33 [facility] Work Phone: Comment on above: Performed By: #### C DP, HCG, CP, LIP, IPF #### [facility] [address] [place] [address] Cd Mixer Helper: Cooper Castro MD Anion gap [Moles/Vol] 12 mmol/L Normal 9-17 [facility] [employer] Work Phone: Comment on above: Performed By: #### C DP, HCG, CP, LIP, IPF #### [facility] [address] [place] [address] Cd Mixer Helper: Cooper Castro MD AST [Catalytic activity/Vol] 18 U/L Normal <32 [facility] Work Phone: Comment on above: Performed By: #### C DP, HCG, CP, LIP, IPF #### [facility] [address] [place] [address] Cd Mixer Helper: Cooper Castro MD Calcium [Mass/Vol] 8.7 mg/dL Normal 8.6-10.4 [facility] Work Phone: Comment on above: Performed By: #### C DP, HCG, CP, LIP, IPF #### [facility] [address] [place] [address] Cd Mixer Helper: Cooper Castro MD Chloride [Moles/Vol] 99 mmol/L Normal 98-107 [facility] Work Phone: Comment on above: Performed By: #### C DP, HCG, CP, LIP, IPF #### [facility] [address] [place] [address] Cd Mixer Helper: Cooper Castro MD CO2 [Moles/Vol] 22 mmol/L Normal 20-31 [facility] Work Phone: Comment on above: Performed By: #### C DP, HCG, CP, LIP, IPF #### [facility] [address] [place] [address] Cd Mixer Helper: Cooper Castro MD Creatinine [Mass/Vol] 0.67 mg/dL Normal 0.50-0.90 [facility] [employer] Phone: Comment on above: Performed By: #### C DP, HCG, CP, LIP, IPF #### [facility] [address] [place] [address] Cd Mixer Helper: Cooper Castro MD Glucose [Mass/Vol] 151 mg/dL High 70-99 [facility] Phone: Comment on above: Performed By: #### C DP, HCG, CP, LIP, IPF #### [facility] [address] [place] [address] Cd Mixer Helper: Cooper Castro MD Potassium [Moles/Vol] 3.5 mmol/L Low 3.7-5.3 [facility] [employer] Phone: Comment on above: Performed By: #### C DP, HCG, CP, LIP, IPF #### [facility] [address] [place] [address] Cd Mixer Helper: Cooper Castro MD Protein [Mass/Vol] 7.0 g/dL Normal 6.4-8.3 [facility] [employer] Phone: Comment on above: Performed By: #### C DP, HCG, CP, LIP, IPF #### [facility] [address] [place] [address] Cd Mixer Helper: Cooper Castro MD Sodium [Moles/Vol] 133 mmol/L Low 135-144 [facility] [employer] Phone: Comment on above: Performed By: #### C DP, HCG, CP, LIP, IPF #### [facility] [address] [place] [address] Cd Mixer Helper: Cooper Castro MD Urea nitrogen [Mass/Vol] 14 mg/dL Normal 6-20 [employer] Phone: Comment on above: Performed By: #### C DP, HCG, CP, LIP, IPF #### [facility] [address] [place] [address] Cd Mixer Helper: Cooper Castro MD Comprehensive Metabolic Pane lOrdered By: Xander Lazaro on 06-11-2019 ALP [Catalytic activity/Vol] 69 U/L 35 - 104 U/L [employer] Phone: Bilirubin [Mass/Vol] 0.51 mg/dL 0.3 - 1 .2 mg/dL [employer] Phone: Bun/Cre Ratio NOT REPORTED [facility] Work Phone: GFR >60 >60 mL/min [employer] Work Phone: GFR Comment [email or web address] Work Phone: Comment on above: Average GFR for 40-4 9 years old: 99 mL/min/1.73sq m Chronic Kidney Disease: <60 mL/min/1.73sq m Kidney failure: <15 mL/min/1.73sq m eGFR calculated using average adult body mass. Additional eGFR calculator available at: http://www.ilab/multiple_crcl_2012.htm GFR Non- >60 >60 mL/min [employer] Phone: GFR Staging NOT REPORTED [employer] [facility] Work Phone: Interpretation and review of laboratory results Abnormal [employer] Phone: , URINEOrdered By: Xander Lazaro on 06-11-2019 Beta HCG ( test) Ql (U) Negative NEGATIVE [employer] Phone: Comment on above: Specimens with hCG l evels near the threshold of the test (25 mIU/mL) may give a negative or indeterminate result. In such cases, another test should be performed with a new specimen in 48-72 hours. If early is suspected clinically in this setting, correlation with quantitative serum b-hCG level is suggested. UrinalysisOrdered By: Hannah Lazaro on 06-11-2019 Bilirubin Urine Negative NEGATIVE [facility] Work Phone: Color, UA YELLOW YELLOW [email or web address] Work Phone: Glucose, Ur Negative NEGATIVE [email or web address] Work Phone: Ketones Ql (U) Negative NEGATIVE [employer] Work Phone: Leukocyte esterase Test strip Ql (U) Negative NEGATIVE [email or web address] Work Phone: Nitrite, Urine Negative NEGATIVE [employer] Work Phone: pH, UA 5.5 [email or web address] Work Phone: Protein, UA Negative NEGATIVE [email or web address] Work Phone: Specific [place], UA 1.018 [employer] Work Phone: Turbidity UA CLEAR CLEAR [email or web address] Work Phone: Urinalysis Comments Microscopic exam not performed based on chemical results unless requested in original order. [email or web address] Work Phone: Urine Hgb Negative NEGATIVE [employer] Phone: Urobilinogen, Urine Normal Normal [employer] Phone: CBC WITH AUTO DIFFERENTIALOr dered By: Haylee Givens on 06-08-2019 Absolute Eos # 0.08 [employer] Work Phone: Absolute Immature Granulocyte 0.04 [email or web address] Work Phone: Absolute Lymph # 2.10 [facility] Work Phone: Absolute [place] # 0.48 [facility] Work Phone: Basophils (Bld) [#/Vol] 0.05 10*3/uL [email or web address] Work Phone: Basophils/100 WBC (Bld) 1 % 0 - 2 % [facility] Work Phone: Differential Type NOT REPORTED [employer] Phone: Eosinophils/100 WBC (Bld) 1 % 1 - 4 % [employer] Phone: Erythrocyte distribution width (RBC) [Ratio] 12.6 % 11.8 - 14.4 % [employer] Phone: Hematocrit (Bld) [Volume fraction] 41.2 % 36.3 - 47.1 % [employer] Phone: Hemoglobin (Bld) [Mass/Vol] 13.5 g/dL 11.9 - 15.1 g/dL [employer] Phone: Immature granulocytes/100 WBC (Bld) 1 % High 0 [employer] Phone: Interpretation and review of laboratory results Abnormal [employer] Phone: Lymphocytes/100 WBC (Bld) 31 % 24 - 43 % [employer] Phone: MCH (RBC) [Entitic mass] 30.1 pg 25.2 - 33.5 pg [employer] Phone: MCHC (RBC) [Mass/Vol] 32.8 g/dL 28.4 - 34.8 g/dL [employer] Phone: MCV (RBC) [Entitic vol] 92.0 fL 82.6 - 102.9 fL [employer] Phone: Monocytes/100 WBC (Bld) 7 % 3 - 12 % [employer] Phone: NRBC Automated 0.0 0.0 per 100 WBC [employer] Phone: Platelet Estimate NOT REPORTED [employer] Phone: Platelet mean volume (Bld) [Entitic vol] 9.3 fL 8.1 - 13.5 fL [employer] Phone: Platelets (Bld) [#/Vol] 310 10*3/uL [employer] Phone: RBC (Bld) [#/Vol] 4.48 10*6/uL 3.95 - 5.1 1 m/uL [email or web address] Work Phone: RBC morphology finding Nom (Bld) NOT REPORTED [email or web address] Work Phone: Segmented neutrophils/100 WBC (Bld) 59 % 36 - 65 % [email or web address] Work Phone: Segs Absolute 4.10 [employer] [facility] [employer] Work Phone: WBC (Bld) [#/Vol] 6.9 10*3/uL [employer] Phone: WBC Morphology NOT REPORTED [facility] Work Phone: CBC with Diffon 06-08-2019 Abs. Basophil 0.05 k/uL Normal 0.00-0.20 [facility] Comment on above: Performed By: #### C DP, HCG, CP, LIP, IPF #### [facility] [address] [place] [address] Cd Mixer Helper: Cooper Castro MD Abs.Imm.Granulocyte 0.04 k/uL Normal 0.00-0.30 [facility] Comment on above: Performed By: #### C DP, HCG, CP, LIP, IPF #### [facility] [address] [place] [address] Cd Mixer Helper: Cooper Castro MD Abs.Neutrophil (Seg) 4.10 k/uL Normal 1.50-8.10 [facility] Comment on above: Performed By: #### C DP, HCG, CP, LIP, IPF #### [facility] [address] [place], [place] [id number] Cd Mixer Helper: Cooper Castro MD Basophils/100 WBC (Bld) 1 % Normal 0-[address] [facility] Comment on above: Performed By: #### C DP, HCG, CP, LIP, IPF #### [address] [address] Cd Mixer Helper: Cooper Castro MD Eosinophils (Bld) [#/Vol] 0.08 10*3/uL Normal 0.00-0.44 [facility] Comment on above: Performed By: #### C DP, HCG, CP, LIP, IPF #### [place] [address] Cd Mixer Helper: Cooper Castro MD Eosinophils/100 WBC (Bld) 1 % Normal 1-4 [facility] Comment on above: Performed By: #### C DP, HCG, CP, LIP, IPF #### [place] [address] Cd Mixer Helper: Cooper Castro MD Erythrocyte distribution width (RBC) [Ratio] 12.6 % Normal 11.8-14.4 [facility] Comment on above: Performed By: #### C DP, HCG, CP, LIP, IPF #### [place] [address] Cd Mixer Helper: Cooper Castro MD Hematocrit (Bld) [Volume fraction] 41.2 % Normal 36.3-47.1 [facility] Comment on above: Performed By: #### C DP, HCG, CP, LIP, IPF #### [place] [address] Cd Mixer Helper: Cooper Castro MD Hemoglobin (Bld) [Mass/Vol] 13.5 g/dL Normal 11.9-15.1 [facility] Comment on above: Performed By: #### C DP, HCG, CP, LIP, IPF #### [address] [address] Cd Mixer Helper: Cooper Castro MD Immature granulocytes (Bld) [#/Vol] 1 % High 0 [facility] Comment on above: Performed By: #### C DP, HCG, CP, LIP, IPF #### [address] [address] Cd Mixer Helper: Cooper Castro MD Lymphocytes (Bld) [#/Vol] 2.10 10*3/uL Normal 1.10-3.70 [facility] Comment on above: Performed By: #### C DP, HCG, CP, LIP, IPF #### [address] [address] Cd Mixer Helper: Cooper Castro MD Lymphocytes/100 WBC (Bld) 31 % Normal 24-43 [facility] Comment on above: Performed By: #### C DP, HCG, CP, LIP, IPF #### [address] [address] Cd Mixer Helper: Cooper Castro MD MCH (RBC) [Entitic mass] 30.1 pg Normal 25.2-33.5 [facility] Comment on above: Performed By: #### C DP, HCG, CP, LIP, IPF #### [address] [address] Cd Mixer Helper: Cooper Castro MD MCHC (RBC) [Mass/Vol] 32.8 g/dL Normal 28.4-34.8 [facility] Comment on above: Performed By: #### C DP, HCG, CP, LIP, IPF #### [address] [address] Cd Mixer Helper: Cooper Castro MD MCV (RBC) [Entitic vol] 92.0 fL Normal 82.6-102.[address] [facility] Comment on above: Performed By: #### C DP, HCG, CP, LIP, IPF #### [address] [address] Cd Mixer Helper: Cooper Castro MD Monocytes (Bld) [#/Vol] 0.48 10*3/uL Normal 0.10-1.20 [facility] Comment on above: Performed By: #### C DP, HCG, CP, LIP, IPF #### [address] [address] Cd Mixer Helper: Cooper Castro MD Monocytes/100 WBC (Bld) 7 % Normal 3-[address] [facility] Comment on above: Performed By: #### C DP, HCG, CP, LIP, IPF #### [address] [address] Cd Mixer Helper: Cooper Castro MD Neutrophil (Seg) 59 % Normal 36-65 [facility] Comment on above: Performed By: #### C DP, HCG, CP, LIP, IPF #### [address] [address] Cd Mixer Helper: Cooper Castro MD NRBC Automated 0.0 per 100 WBC Normal 0.0 [facility] Comment on above: Performed By: #### C DP, HCG, CP, LIP, IPF #### [address] [address] Cd Mixer Helper: Cooper Castro MD Platelet mean volume (Bld) [Entitic vol] 9.3 fL Normal 8.1-13.5 [facility] Comment on above: Performed By: #### C DP, HCG, CP, LIP, IPF #### [address] [address] Cd Mixer Helper: Cooper Castro MD Platelets (Bld) [#/Vol] 310 10*3/uL Normal 138-453 [facility] Comment on above: Performed By: #### C DP, HCG, CP, LIP, IPF #### [address] [address] Cd Mixer Helper: Cooper Castro MD RBC (Bld) [#/Vol] 4.48 10*6/uL Normal 3.95-5.11 [facility] Comment on above: Performed By: #### C DP, HCG, CP, LIP, IPF #### [address] [address] Cd Mixer Helper: Cooper Castro MD WBC (Bld) [#/Vol] 6.9 10*3/uL Normal 3.5-11.3 [facility] Comment on above: Performed By: #### C DP, HCG, CP, LIP, IPF #### [address] [address] Cd Mixer Helper: Cooper Castro MD Auto Diff Performed NOT REPORTED Normal [facility] Comment on above: Performed By: #### C DP, HCG, CP, LIP, IPF #### [address] [address] Cd Mixer Helper: Cooper Castro MD Platelets (Bld) [#/Vol] NOT REPORTED Normal [facility] Comment on above: Performed By: #### C DP, HCG, CP, LIP, IPF #### [address] [address] Cd Mixer Helper: Cooper Castro MD RBC morphology finding Nom (Bld) NOT REPORTED Normal [facility] Comment on above: Performed By: #### C DP, HCG, CP, LIP, IPF #### [address] [address] Cd Mixer Helper: Cooper Castro MD WBC Morphology NOT REPORTED Normal [facility] Comment on above: Performed By: #### C DP, HCG, CP, LIP, IPF #### [address] [address] Cd Mixer Helper: Cooper Castro MD Comp Metabolic Profon 2018 AST [Catalytic activity/Vol] 18 U/L Normal <32 [facility] Comment on above: Performed By: #### C DP, HCG, CP, LIP, IPF #### [address] [address] Cd Mixer Helper: Cooper Castro MD (cont.) [facility] Comment on above: Result Comment: Aver age GFR for 40-49 years old: 99 mL/min/1.73sq m Chronic Kidney Disease: <60 mL/min/1.73sq m Kidney failure: <15 mL/min/1.73sq m eGFR calculated using average adult body mass. Additional eGFR calculator available at: http://www.ilab/multiple_crcl_2011.htm Performed By: #### C DP, HCG, CP, LIP, IPF #### [address] [address] Cd Mixer Helper: Cooper Castro MD Albumin [Mass/Vol] 3.6 g/dL Normal 3.5-5.2 [facility] Comment on above: Performed By: #### C DP, HCG, CP, LIP, IPF #### [address] [address] Cd Mixer Helper: Cooper Castro MD Albumin/Globulin [Mass ratio] 1.1 {ratio} Normal 1.0-2.5 [facility] Comment on above: Performed By: #### C DP, HCG, CP, LIP, IPF #### [facility] [employer] [address] [place] [address] Cd Mixer Helper: Cooper Castro MD Alkaline Phos 65 U/L Normal 35-104 [facility] Comment on above: Performed By: #### C DP, HCG, CP, LIP, IPF #### [facility] [employer] [address] [place] [address] Cd Mixer Helper: Cooper Castro MD ALT [Catalytic activity/Vol] 29 U/L Normal 5-33 [facility] Comment on above: Performed By: #### C DP, HCG, CP, LIP, IPF #### [facility] [employer] [address] [place] [address] Cd Mixer Helper: Cooper Castro MD Anion gap [Moles/Vol] 11 mmol/L Normal 9-17 [facility] Comment on above: Performed By: #### C DP, HCG, CP, LIP, IPF #### [address] [address] Cd Mixer Helper: Cooper Castro MD Bilirubin Ql (U) 0.43 mg/dL Normal 0.3-1.2 [facility] Comment on above: Performed By: #### C DP, HCG, CP, LIP, IPF #### [address] [address] Cd Mixer Helper: Cooper Castro MD Calcium [Mass/Vol] 9.0 mg/dL Normal 8.6-10.4 [facility] Comment on above: Performed By: #### C DP, HCG, CP, LIP, IPF #### [address] [address] Cd Mixer Helper: Cooper Castro MD Chloride [Moles/Vol] 101 mmol/L Normal 98-107 [facility] Comment on above: Performed By: #### C DP, HCG, CP, LIP, IPF #### [address] [address] Cd Mixer Helper: Cooper Castro MD CO2 [Moles/Vol] 24 mmol/L Normal 20-31 [facility] Comment on above: Performed By: #### C DP, HCG, CP, LIP, IPF #### [facility] [employer] [address] [place] [address] Cd Mixer Helper: Cooper Castro MD Creatinine [Mass/Vol] 0.78 mg/dL Normal 0.50-0.90 [facility] Comment on above: Performed By: #### C DP, HCG, CP, LIP, IPF #### [address] [address] Cd Mixer Helper: Cooper Castro MD GFR, Amer >60 Normal >60 [facility] Comment on above: Performed By: #### C DP, HCG, CP, LIP, IPF #### [address] [address] Cd Mixer Helper: Cooper Castro MD GFR,non Amer >60 Normal >60 [facility] Comment on above: Performed By: #### C DP, HCG, CP, LIP, IPF #### [address] [address] Cd Mixer Helper: Cooper Castro MD Glucose [Mass/Vol] 172 mg/dL High 70-99 [facility] Comment on above: Performed By: #### C DP, HCG, CP, LIP, IPF #### [address] [address] Cd Mixer Helper: Cooper Castro MD Potassium [Moles/Vol] 3.8 mmol/L Normal 3.7-5.3 [facility] Comment on above: Performed By: #### C DP, HCG, CP, LIP, IPF #### [address] [address] Cd Mixer Helper: Cooper Castro MD Protein [Mass/Vol] 6.8 g/dL Normal 6.4-8.3 [facility] Comment on above: Performed By: #### C DP, HCG, CP, LIP, IPF #### [address] [address] Cd Mixer Helper: Cooper Castro MD Sodium [Moles/Vol] 136 mmol/L Normal 135-144 [facility] Comment on above: Performed By: #### C DP, HCG, CP, LIP, IPF #### [facility] [address] [place] [address], [place] [address] Cd Mixer Helper: Cooper Castro MD Urea nitrogen [Mass/Vol] 10 mg/dL Normal -20 [facility] Comment on above: Performed By: #### C DP, HCG, CP, LIP, IPF #### [facility] [address] [place] [address] Cd Mixer Helper: Cooper Castro MD BUN/CRE Ratio NOT REPORTED Normal - [facility] Comment on above: Performed By: #### C DP, HCG, CP, LIP, IPF #### [facility] [address] [place] [address] Cd Mixer Helper: Cooper Castro MD Staging: NOT REPORTED Normal [facility] Comment on above: Performed By: #### C DP, HCG, CP, LIP, IPF #### [facility] [address] [place] [address] Cd Mixer Helper: Cooper Castro MD Comprehensive Metabolic Pane lOrdered By: Haylee Givens on 06-08-2019 Albumin [Mass/Vol] 3.6 g/dL 3.5 - 5.2 g/dL [employer] Phone: Albumin/Globulin [Mass ratio] 1.1 {ratio} [employer] Phone: ALP [Catalytic activity/Vol] 65 U/L 35 - 104 U/L [employer] Phone: ALT [Catalytic activity/Vol] 29 U/L 5 - 33 U/L [employer] Phone: Anion gap [Moles/Vol] 11 mmol/L 9 - 17 mmol/L [employer] Phone: AST [Catalytic activity/Vol] 18 U/L <32 [employer] Phone: Bilirubin [Mass/Vol] 0.43 mg/dL 0.3 - 1 .2 mg/dL [employer] Phone: Bun/Cre Ratio NOT REPORTED [facility] Work Phone: Calcium [Mass/Vol] 9.0 mg/dL 8.6 - 10. 4 mg/dL [employer] Phone: Chloride [Moles/Vol] 101 mmol/L 98 - 10 7 mmol/L [employer] Phone: CO2 [Moles/Vol] 24 mmol/L 20 - 31 mmol/L [employer] Phone: Creatinine [Mass/Vol] 0.78 mg/dL 0.5 - 0.9 mg/dL [employer] Phone: GFR >60 >60 mL/min [employer] Phone: GFR Comment [employer] Phone: Comment on above: Average GFR for 40-4 9 years old: 99 mL/min/1.73sq m Chronic Kidney Disease: <60 mL/min/1.73sq m Kidney failure: <15 mL/min/1.73sq m eGFR calculated using average adult body mass. Additional eGFR calculator available at: http://www.ilab/multiple_crcl_2011.htm GFR Non- >60 >60 mL/min [employer] Phone: GFR Staging NOT REPORTED [facility] Work Phone: Glucose [Mass/Vol] 172 mg/dL High 70 - 99 mg/dL [employer] Phone: Interpretation and review of laboratory results Abnormal [employer] Phone: Potassium [Moles/Vol] 3.8 mmol/L 3.7 - 5.3 mmol/L [employer] Phone: Protein [Mass/Vol] 6.8 g/dL 6.4 - 8.3 g/dL [employer] Phone: Sodium [Moles/Vol] 136 mmol/L 135 - 144 mmol/L [employer] Phone: Urea nitrogen [Mass/Vol] 10 mg/dL 6 - 20 mg/dL [employer] Phone: HCG Qualitative, SerumOrdere d By: Haylee Givens on 06-08-2019 hCG Qual Negative NEGATIVE [employer] Phone: Comment on above: Specimens with hCG l evels near the threshold of the test (25 mIU/mL) may give a negative or indeterminate result. In such cases, another test should be performed with a new specimen in 48-72 hours. If early is suspected clinically in this setting, correlation with quantitative serum b-hCG level is suggested. [facility] has confirmed the use of plasma for this test. This has not been cleared or approved by the U.S. Food and Drug Administration. The FDA has determined that such clearance is not necessary. HCG Screen, Bloodon 06-08-20 19 HCG Qn Negative Normal NEG [facility] Comment on above: Result Comment: Spec imens with hCG levels near the threshold of the test (25 mIU/mL) may give a negative or indeterminate result. In such cases, another test should be performed with a new specimen in 48-72 hours. If early is suspected clinically in this setting, correlation with quantitative serum b-hCG level is suggested. [facility] has confirmed the use of plasma for this test. This has not been cleared or approved by the U.S. Food and Drug Administration. The FDA has determined that such clearance is not necessary. Performed By: #### C DP, HCG, CP, LIP, IPF #### [facility] [address] [place] [address] [employer] Mixer Helper: Cooper Castro MD LIPASEOrdered By: Haylee greer on 06-08-2019 Lipase [Catalytic activity/Vol] 25 U/L 13 - 60 U/L [employer] Phone: Lipaseon 06-08-2019 Lipase [Catalytic activity/Vol] 25 U/L Normal 13-60 [facility] Comment on above: Performed By: #### C DP, HCG, CP, LIP, IPF #### [address] [address] [employer] Helper: Cooper Castro MD IBD sgi Diagnosticon 019 IBD sgi Diagnostic PATTERN NOT CONSISTENT WITH IBD Normal [facility] Comment on above: Result Comment: See separate report for additional information. PERFORMED AT [address] [address] Performed By: #### C DP, HCG, CP, LIP, IPF #### [address] [address] [employer] Helper: Cooper Castro MD Sedimentation Rateon 019 Sedimentation Rate 28 mm High 0-20 [facility] Comment on above: Performed By: #### C DP, HCG, CP, LIP, IPF #### [address] [address] [employer] Helper: Cooper Castro MD C-Reactive Proteinon 019 CRP [Mass/Vol] 20.3 mg/L High 0.0-5.0 [facility] Comment on above: Performed By: #### C RP, IBDSGI #### [address] [address] [employer] Helper: Cooper Castro MD Cult,Urineon 11-08-2018 Cult,Urine Specimen Description .URINE Special Requests NOT REPORTED Culture NO SIGNIFICANT GROWTH Report Status FINAL 11/08/2018 Normal [facility] Comment on above: Performed By: #### U RC #### [address] [address] [employer] Helper: Cooper Castro MD CBC with Diffon 11-07-2018 Abs. Basophil 0.04 k/uL Normal 0.00-0.20 [facility] Comment on above: Performed By: #### C DP, HCG, CP, LIP, IPF #### [address] [address] [employer] Helper: Cooper aCstro MD Abs.Imm.Granulocyte 0.05 k/uL Normal 0.00-0.30 [facility] Comment on above: Performed By: #### C DP, HCG, CP, LIP, IPF #### [place] [address] [employer] Helper: Cooper Castro MD Abs.Neutrophil (Seg) 7.09 k/uL Normal 1.50-8.10 [facility] Comment on above: Performed By: #### C DP, HCG, CP, LIP, IPF #### [place] [address] [employer] Helper: Cooper Castro MD Basophils/100 WBC (Bld) 0 % Normal 0-2 [facility] Comment on above: Performed By: #### C DP, HCG, CP, LIP, IPF #### [place] [address] [employer] Helper: Cooper Castro MD Eosinophils (Bld) [#/Vol] 0.07 10*3/uL Normal 0.00-0.44 [facility] Comment on above: Performed By: #### C DP, HCG, CP, LIP, IPF #### [address] [address] [employer]: Cooper Castro MD Eosinophils/100 WBC (Bld) 1 % Normal 1-4 [facility] Comment on above: Performed By: #### C DP, HCG, CP, LIP, IPF #### [place] [address] [employer]per: Cooper Castro MD Immature granulocytes (Bld) [#/Vol] 1 % High 0 [facility] Comment on above: Performed By: #### C DP, HCG, CP, LIP, IPF #### [place] [address] [employer]per: Cooper Castro MD Lymphocytes (Bld) [#/Vol] 2.61 10*3/uL Normal 1.10-3.70 [facility] Comment on above: Performed By: #### C DP, HCG, CP, LIP, IPF #### [address] [address] [employer]per: Cooper Castro MD Lymphocytes/100 WBC (Bld) 24 % Normal 24-43 [facility] Comment on above: Performed By: #### C DP, HCG, CP, LIP, IPF #### [address] [address] [employer]per: Cooper Castro MD Monocytes (Bld) [#/Vol] 0.90 10*3/uL Normal 0.10-1.20 [facility] Comment on above: Performed By: #### C DP, HCG, CP, LIP, IPF #### [address] [address] [employer]per: Cooper Castro MD Monocytes/100 WBC (Bld) 8 % Normal 3-[address] [facility] Comment on above: Performed By: #### C DP, HCG, CP, LIP, IPF #### [address] [address] [employer] Helper: Cooper Castro MD Neutrophil (Seg) 66 % High 36-65 [facility] Comment on above: Performed By: #### C DP, HCG, CP, LIP, IPF #### [facility] [employer] [address] [place] [address] Cd Mixer Helper: Cooper Castro MD Erythrocyte distribution width (RBC) [Ratio] 12.8 % Normal 11.8-14.4 [facility] Comment on above: Performed By: #### C DP, HCG, CP, LIP, IPF #### [address] [address] Cd Mixer Helper: Cooper Castro MD Hematocrit (Bld) [Volume fraction] 39.1 % Normal 36.3-47.1 [facility] Comment on above: Performed By: #### C DP, HCG, CP, LIP, IPF #### [place] [address] Cd Mixer Helper: Cooper Castro MD Hemoglobin (Bld) [Mass/Vol] 12.7 g/dL Normal 11.9-15.1 [facility] Comment on above: Performed By: #### C DP, HCG, CP, LIP, IPF #### [place] [address] Cd Mixer Helper: Cooper Castro MD MCH (RBC) [Entitic mass] 30.0 pg Normal 25.2-33.5 [facility] Comment on above: Performed By: #### C DP, HCG, CP, LIP, IPF #### [place] [address] Cd Mixer Helper: Cooper Castro MD MCHC (RBC) [Mass/Vol] 32.5 g/dL Normal 28.4-34.8 [facility] Comment on above: Performed By: #### C DP, HCG, CP, LIP, IPF #### [place] [address] Cd Mixer Helper: Cooper Castro MD MCV (RBC) [Entitic vol] 92.4 fL Normal 82.6-102.9 [facility] Comment on above: Performed By: #### C DP, HCG, CP, LIP, IPF #### [place] [address] Cd Mixer Helper: Cooper Castro MD NRBC Automated 0.0 per 100 WBC Normal 0.0 [facility] Comment on above: Performed By: #### C DP, HCG, CP, LIP, IPF #### [place] [address] Cd Mixer Helper: Cooper Castro MD Platelets (Bld) [#/Vol] See Reflexed IPF Result Normal 138-453 [facility] Comment on above: Performed By: #### C DP, HCG, CP, LIP, IPF #### [address] [address] Cd Mixer Helper: Cooper Castro MD RBC (Bld) [#/Vol] 4.23 10*6/uL Normal 3.95-5.11 [facility] Comment on above: Performed By: #### C DP, HCG, CP, LIP, IPF #### [address] [address] Cd Mixer Helper: Cooper Castro MD WBC (Bld) [#/Vol] 10.8 10*3/uL Normal 3.5-11.3 [facility] Comment on above: Performed By: #### C DP, HCG, CP, LIP, IPF #### [address] [address] Cd Mixer Helper: Cooper Castro MD Auto Diff Performed NOT REPORTED Normal [facility] Comment on above: Performed By: #### C DP, HCG, CP, LIP, IPF #### [address] [address] Cd Mixer Helper: Cooper Castro MD Platelet mean volume (Bld) [Entitic vol] NOT REPORTED Normal 8.1-13.5 [facility] Comment on above: Performed By: #### C DP, HCG, CP, LIP, IPF #### [address] [address] Cd Mixer Helper: Cooper Castro MD Platelets (Bld) [#/Vol] NOT REPORTED Normal [facility] Comment on above: Performed By: #### C DP, HCG, CP, LIP, IPF #### [address] [address] Cd Mixer Helper: Cooper Castro MD RBC morphology finding Nom (Bld) NOT REPORTED Normal [facility] Comment on above: Performed By: #### C DP, HCG, CP, LIP, IPF #### [facility] [address] [place] [address] Cd Mixer Helper: Cooper Castro MD WBC Morphology NOT REPORTED Normal [facility] Comment on above: Performed By: #### C DP, HCG, CP, LIP, IPF #### [facility] [address] [place] [address] Cd Mixer Helper: Cooper Castro MD CT ABDOMEN PELVIS WO CONTRAS Ton 11-07-2018 CT ABDOMEN PELVIS WO CONTRAST EXAMINATION: CT OF THE ABDOMEN AND PELVIS WITHOUT CONTRAST 11/07/2018 9:18 am TECHNIQUE: CT of the abdomen and pelvis was performed without the administration of intravenous contrast. Multiplanar reformatted images are provided for review. Dose modulation, iterative reconstruction, and/or weight based adjustment of the mA/kV was utilized to reduce the radiation dose to as low as reasonably achievable. COMPARISON: None. HISTORY: ORDERING SYSTEM PROVIDED HISTORY: abd pain, concern for kidney stone TECHNOLOGIST PROVIDED HISTORY: FINDINGS: Lower Chest: Normal heart size. Lung bases clear. KIDNEYS AND URINARY TRACT: Bilateral small nonobstructing calculi. No evidence for hydronephrosis. The ureters are of normal course and caliber. ORGANS: Lack of intravenous contrast limits evaluation of the solid organs and bowel. The liver, spleen, pancreas adrenal glands appear grossly unremarkable. Cholecystectomy. GI/BOWEL: No bowel obstruction or inflammation. Sigmoid diverticulosis. PELVIS: The bladder and pelvic organs are unremarkable. PERITONEUM/RETROPERIT ONEUM: No lymphadenopathy is noted. Normal caliber aorta. No ascites or free air. BONES/SOFT TISSUES: The osseous structures demonstrate no significant abnormality. IMPRESSION: Bilateral nonobstructing calculi. Otherwise negative noncontrast CT examination of the abdomen and pelvis with no evidence of obstructive uropathy or other acute process. Interpreted by: Amy Hester MD Signed by: Amy Hester MD 11/07/18 Final result Normal [facility] Comp Metabolic Profon 2018 (cont.) Normal [facility] Comment on above: Result Comment: Aver age GFR for 40-49 years old: 99 mL/min/1.73sq m Chronic Kidney Disease: <60 mL/min/1.73sq m Kidney failure: <15 mL/min/1.73sq m eGFR calculated using average adult body mass. Additional eGFR calculator available at: http://www.[employer].Palette/multiple_crcl_2011.htm Performed By: #### C DP, HCG, CP, LIP, IPF #### [facility] [employer] [address] [place] [address] Cd Mixer Helper: Cooper Castro MD Albumin [Mass/Vol] 3.8 g/dL Normal 3.5-5.2 [facility] Comment on above: Performed By: #### C DP, HCG, CP, LIP, IPF #### [address] [address] Cd Mixer Helper: Cooper Castro MD Albumin/Globulin [Mass ratio] 1.3 {ratio} Normal 1.0-2.5 [facility] Comment on above: Performed By: #### C DP, HCG, CP, LIP, IPF #### [facility] [employer] [address] [place] [address] Cd Mixer Helper: Cooper Castro MD Alkaline Phos 86 U/L Normal 35-104 [facility] Comment on above: Performed By: #### C DP, HCG, CP, LIP, IPF #### [facility] [address] [place] [address] Cd Mixer Helper: Cooper Castro MD ALT [Catalytic activity/Vol] 26 U/L Normal 5-33 [facility] Comment on above: Performed By: #### C DP, HCG, CP, LIP, IPF #### [facility] [employer] [address] [place] [address] Cd Mixer Helper: Cooper Castro MD Anion gap [Moles/Vol] 9 mmol/L Normal 9-17 [facility] Comment on above: Performed By: #### C DP, HCG, CP, LIP, IPF #### [address] [address] Cd Mixer Helper: Cooper Castro MD AST [Catalytic activity/Vol] 17 U/L Normal <32 [facility] Comment on above: Performed By: #### C DP, HCG, CP, LIP, IPF #### [address] [address] Cd Mixer Helper: Cooper Castro MD Bilirubin Ql (U) 0.32 mg/dL Normal 0.3-1.2 [facility] Comment on above: Performed By: #### C DP, HCG, CP, LIP, IPF #### [address] [address] Cd Mixer Helper: Cooper Castro MD Calcium [Mass/Vol] 9.1 mg/dL Normal 8.6-10.4 [facility] Comment on above: Performed By: #### C DP, HCG, CP, LIP, IPF #### [address] [address] Cd Mixer Helper: Cooper Castro MD Chloride [Moles/Vol] 99 mmol/L Normal 98-107 [facility] Comment on above: Performed By: #### C DP, HCG, CP, LIP, IPF #### [address] [address] Cd Mixer Helper: Cooper Castro MD CO2 [Moles/Vol] 27 mmol/L Normal 20-31 [facility] Comment on above: Performed By: #### C DP, HCG, CP, LIP, IPF #### [address] [address] Cd Mixer Helper: Cooper Castro MD Creatinine [Mass/Vol] 1.02 mg/dL High 0.50-0.90 [facility] Comment on above: Performed By: #### C DP, HCG, CP, LIP, IPF #### [address] [address] Cd Mixer Helper: Cooper Castro MD GFR, Amer >60 Normal >60 [facility] Comment on above: Performed By: #### C DP, HCG, CP, LIP, IPF #### [address] [address] Cd Mixer Helper: Cooper Castro MD GFR,non Amer 60 mL/min Low >60 [facility] Comment on above: Performed By: #### C DP, HCG, CP, LIP, IPF #### [address] [address] Cd Mixer Helper: Cooper Castro MD Glucose [Mass/Vol] 118 mg/dL High 70-99 [facility] Comment on above: Performed By: #### C DP, HCG, CP, LIP, IPF #### [address] [address] Cd Mixer Helper: Cooper Castro MD Potassium [Moles/Vol] 4.2 mmol/L Normal 3.7-5.3 [facility] Comment on above: Performed By: #### C DP, HCG, CP, LIP, IPF #### [address] [address] Cd Mixer Helper: Cooper Castro MD Protein [Mass/Vol] 6.7 g/dL Normal 6.4-8.3 [facility] Comment on above: Performed By: #### C DP, HCG, CP, LIP, IPF #### [address] [address] Cd Mixer Helper: Cooper Castro MD Sodium [Moles/Vol] 135 mmol/L Normal 135-144 [facility] Comment on above: Performed By: #### C DP, HCG, CP, LIP, IPF #### [facility] [address] [place] [address] Cd Mixer Helper: Cooper Castro MD Urea nitrogen [Mass/Vol] 12 mg/dL Normal 6-20 [facility] Comment on above: Performed By: #### C DP, HCG, CP, LIP, IPF #### [place] [address] [place] [address] Cd Mixer Helper: Cooper Castro MD BUN/CRE Ratio NOT REPORTED Normal 9-20 [facility] Comment on above: Performed By: #### C DP, HCG, CP, LIP, IPF #### [address] [address] Cd Mixer Helper: Cooper Castro MD Staging: NOT REPORTED Normal [facility] Comment on above: Performed By: #### C DP, HCG, CP, LIP, IPF #### [facility] [address] [place] [address] Cd Mixer Helper: Cooper Castro MD HCG Screen, Bloodon 11-08-19 19 HCG Qn Negative Normal NEG [facility] Comment on above: Result Comment: Spec imens with hCG levels near the threshold of the test (25 mIU/mL) may give a negative or indeterminate result. In such cases, another test should be performed with a new specimen in 48-72 hours. If early is suspected clinically in this setting, correlation with quantitative serum b-hCG level is suggested. [employer] has confirmed the use of plasma for this test. This has not been cleared or approved by the U.S. Food and Drug Administration. The FDA has determined that such clearance is not necessary. Performed By: #### C DP, HCG, CP, LIP, IPF #### [facility] [address] [place] [address] Cd Mixer Helper: Cooper Castro MD Lipaseon 11-07-2018 Lipase [Catalytic activity/Vol] 33 U/L Normal 13-60 [facility] Comment on above: Performed By: #### C DP, HCG, CP, LIP, IPF #### [address] [address] Cd Mixer Helper: Cooper Castro MD PLT, Immature Fract.on 11-07 Platelet, Fluoresc. Platelet clumps present, count appears adequate. Normal 138-453 [facility] Comment on above: Result Comment: ORDE RED BY LAB Performed By: #### C DP, HCG, CP, LIP, IPF #### [address] [address] Cd Mixer Helper: Cooper Castro MD PLT, Immature Fract. NOT REPORTED Normal 1.1-10.3 [facility] Comment on above: Performed By: #### C DP, HCG, CP, LIP, IPF #### [address] [address] Cd Mixer Helper: Cooper Castor MD Urinalysis w/ Microon 2018 ----- Normal [facility] Comment on above: Performed By: #### U AMIC #### [address] [address] Cd Mixer Helper: Cooper Castro MD Acetoacetic Acid,Ur Negative Normal NEG [facility] Comment on above: Performed By: #### U AMIC #### [address] [address] Cd Mixer Helper: Cooper Castro MD Bilirubin, SemiQt,Ur Negative Normal NEG [facility] Comment on above: Performed By: #### U AMIC #### [address] [address] Cd Mixer Helper: Cooper Castro MD Casts LM.LPF (Urine sed) [#/Area] 0 TO 2 HYALINE Normal 0-8 [facility] Comment on above: Result Comment: Refe rence range defined for non-centrifuged specimen. Performed By: #### U AMIC #### [address] [address] Cd Mixer Helper: Cooper Castro MD Color (U) YELLOW Normal YEL [facility] Comment on above: Performed By: #### U AMIC #### [address] [address] Cd Mixer Helper: Cooper Castro MD Epithelial cells LM.HPF (Urine sed) [#/Area] 0 TO 2 Normal 0-5 [facility] Comment on above: Performed By: #### U AMIC #### [address] [address] Cd Mixer Helper: Cooper Castro MD Glucose Ql (U) Negative Normal NEG [facility] Comment on above: Performed By: #### U AMIC #### [address] [address] Cd Mixer Helper: Cooper Castro MD Hemoglobin, Ur Negative Normal NEG [facility] Comment on above: Performed By: #### U AMIC #### [address] [address] Cd Mixer Helper: Cooper Castro MD Leukocyte esterase Test strip Ql (U) Negative Normal NEG [facility] Comment on above: Performed By: #### U AMIC #### [address] [address] Cd Mixer Helper: Cooper Castro MD Nitrite,Ur Negative Normal NEG [facility] Comment on above: Performed By: #### U AMIC #### [address] [address] Cd Mixer Helper: Cooper Castro MD pH (U) 5.5 [pH] Normal 5.0-8.0 [facility] Comment on above: Performed By: #### U AMIC #### [address] [place] [address] Cd Mixer Helper: Cooper Castro MD Protein Ql (U) Negative Normal NEG [facility] Comment on above: Performed By: #### U AMIC #### [address] [address] Cd Mixer Helper: Cooper Castro MD RBC (U) [#/Vol] None Normal 0-4 [facility] Comment on above: Result Comment: Refe rence range defined for non-centrifuged specimen. Performed By: #### U AMIC #### [address] [address] Cd Mixer Helper: Cooper Castro MD Specific gravity (U) [Rel density] 1.023 Normal 1.005-1.030 [facility] Comment on above: Performed By: #### U AMIC #### [address] [address] Cd Mixer Helper: Cooper Castro MD Turbidity CLEAR Normal CLEAR [facility] Comment on above: Performed By: #### U AMIC #### [address] [address] Cd Mixer Helper: Cooper Castro MD Urobilinogen,Ur Normal Normal NORM [facility] Comment on above: Performed By: #### U AMIC #### [address] [address] Cd Mixer Helper: Cooper Castro MD WBC (U) [#/Vol] None Normal 0-5 [facility] Comment on above: Performed By: #### U AMIC #### [address] [address] Cd Mixer Helper: Cooper Castro MD Amorphous sediment LM Ql (Urine sed) NOT REPORTED Normal NONE [facility] Comment on above: Performed By: #### U AMIC #### [address] [address] Cd Mixer Helper: Cooper Castro MD Bacteria LM.HPF (Urine sed) [#/Area] NOT REPORTED Normal NONE [facility] Comment on above: Performed By: #### U AMIC #### [address] [address] Cd Mixer Helper: Cooper Castro MD Crystals LM Nom (Urine sed) NOT REPORTED Normal NONE [facility] Comment on above: Performed By: #### U AMIC #### [address] [address] Cd Mixer Helper: Cooper Castro MD Epithelial, Renal NOT REPORTED Normal 0 [facility] Comment on above: Performed By: #### U AMIC #### [address] [address] Cd Mixer Helper: Cooper Castro MD Mucus Strands NOT REPORTED Normal NONE [facility] Comment on above: Performed By: #### U AMIC #### [address] [address] Cd Mixer Helper: Cooper Castro MD Other Observations NOT REPORTED Normal NREQ [facility] Comment on above: Performed By: #### U AMIC #### [address] [address] Cd Mixer Helper: Cooper Castro MD Trichomonas NOT REPORTED Normal NONE [facility] Comment on above: Performed By: #### U AMIC #### [address] [address] Cd Mixer Helper: Cooper Castro MD Yeast LM Ql (Urine sed) NOT REPORTED Normal [facility] Comment on above: Performed By: #### U AMIC #### [address] [address] Cd Mixer Helper: Cooper Castro MD XR ACUTE ABD SERIES CHEST 1 VWon 11-07-2018 XR ACUTE ABD SERIES CHEST 1 VW EXAMINATION: TWO XRAY VIEWS OF THE ABDOMEN AND SINGLE XRAY VIEW OF THE CHEST 11/07/2018 6:40 am COMPARISON: 01/31/2018. HISTORY: ORDERING SYSTEM PROVIDED HISTORY: hx of chrons TECHNOLOGIST PROVIDED HISTORY: hx of chrons Ordering Physician Provided Reason for Exam: hx of chrons Acuity: Unknown Type of Exam: Unknown Acute. Initial evaluation. FINDINGS: The cardiac silhouette and mediastinal contours are normal. The lungs are clear. No focal lung infiltrate. Cholecystectomy clips are noted. There is a normal bowel gas pattern without evidence of obstruction. There is metallic foreign body noted in the right groin. The visualized osseous structures are unremarkable. There is a stone noted in the lower pole of the right kidney and a probable stone in the lower pole of the left kidney. Calcified splenic granulomas noted. IMPRESSION: 1. No acute cardiopulmonary disease. 2. Normal bowel gas pattern without evidence of obstruction. 3. Suspected bilateral renal calculi. 4. Metallic fragment is noted in the right groin, of uncertain etiology. Interpreted by: Jorge A Ortiz MD Signed by: Jorge A Ortiz MD 11/07/18 Final result Normal [facility] Vital Signs Date Time Vital Sign Value Performing Clinician Facility 07-25-2023 13:18-0500 Body height 170.2 cm Dioholland Lewiskis PA-C [facility] 07-25-2023 13:18-0500 Body mass index (BMI) [Ratio] 46.99 kg/m2 Dionysios Marinakis PA-C [facility] [employer] [facility] 07-25-2023 13:18-0500 Body weight 136.08 kg Dionysios Marinakis PA-C [facility] 07-25-2023 13:18-0500 Diastolic blood pressure 91 mm[Hg] Dionysios Marinakis PA-C [facility] 07-25-2023 13:18-0500 Heart rate 95 /min Dionysios Marinakis PA-C Work Phone: [facility] 07-25-2023 13:18-0500 SaO2% (BldA) [Mass fraction] 95 % Ngozi Bell PA-C Work Phone: [email or web address] 07-25-2023 13:18-0500 Systolic blood pressure 143 mm[Hg] Ngozi Bell PA-C Work Phone: [facility] 07-06-2023 06:42-0500 Body height 170.[address] [facility] 07-06-2023 06:42-0500 Body mass index (BMI) [Ratio] 50.3 kg/m2 No [facility] 07-06-2023 06:42-0500 Body temperature 98.1 [degF] [facility] 07-06-2023 06:42-0500 Body weight 145.77 kg [facility] 07-06-2023 06:42-0500 Diastolic blood pressure 64 mm[Hg] No [facility] 07-06-2023 06:42-0500 Heart rate 91 /min [facility] 07-06-2023 06:42-0500 Respiratory rate 16 /min [facility] 07-06-2023 06:42-0500 SaO2% (BldA) [Mass fraction] 94 % No [facility] 07-06-2023 06:42-0500 Systolic blood pressure 117 mm[Hg] [facility] 03-16-2022 06:15-0400 Body temperature 97 [degF] PHYSICIAN NO [facility] 03-16-2022 06:15-0400 Diastolic blood pressure 75 mm[Hg] PHYSICIAN NO [facility] 03-16-2022 06:15-0400 Heart rate 82 /min PHYSICIAN NO [facility] 03-16-2022 06:15-0400 Respiratory rate 20 /min PHYSICIAN NO [facility] 03-16-2022 06:15-0400 SaO2% (BldA) [Mass fraction] 98 % PHYSICIAN NO [facility] 03-16-2022 06:15-0400 Systolic blood pressure 174 mm[Hg] PHYSICIAN NO [facility] 03-16-2022 04:13-0400 Body height 170.18 cm PHYSICIAN NO [facility] 03-16-2022 04:13-0400 Body weight 133.8 kg PHYSICIAN NO [facility] 12-16-2021 06:16-0400 Diastolic blood pressure 81 mm[Hg] No Pcp Required [facility] 12-16-2021 06:16-0400 Heart rate 81 /min No Pcp Required [facility] 12-16-2021 06:16-0400 Respiratory rate 18 /min No Pcp Required [facility] 12-16-2021 06:16-0400 SaO2% (BldA) [Mass fraction] 98 % No Pcp Required [facility] 12-16-2021 06:16-0400 Systolic blood pressure 174 mm[Hg] No Pcp Required [facility] 12-15-2021 18:40-0400 Diastolic blood pressure 75 mm[Hg] [facility] 12-15-2021 18:40-0400 Heart rate 86 /min [facility] 12-15-2021 18:40-0400 Respiratory rate 18 /min [facility] 12-15-2021 18:40-0400 SaO2% (BldA) [Mass fraction] 100 % [facility] 12-15-2021 18:40-0400 Systolic blood pressure 144 mm[Hg] [facility] 12-15-2021 16:07-0400 Body height 170.18 cm [facility] 12-15-2021 16:07-0400 Body mass index (BMI) [Ratio] 47.8 kg/m2 [facility] 12-15-2021 16:07-0400 Body temperature 98.3 [degF] [facility] 12-15-2021 16:07-0400 Body weight 138.6 kg [facility] 09-14-2021 20:44-0400 Body temperature 98.7 [degF] [facility] 09-14-2021 20:44-0400 Diastolic blood pressure 85 mm[Hg] [facility] 09-14-2021 20:44-0400 Heart rate 99 /min [facility] 09-14-2021 20:44-0400 Respiratory rate 18 /min [facility] 09-14-2021 20:44-0400 SaO2% (BldA) [Mass fraction] 95 % [facility] 09-14-2021 20:44-0400 Systolic blood pressure 149 mm[Hg] [facility] 09-14-2021 17:53-0400 Body height 170.18 cm [facility] 09-14-2021 17:53-0400 Body mass index (BMI) [Ratio] 47.3 kg/m2 [facility] 09-14-2021 17:53-0400 Body weight 137.1 kg [facility] 06-08-2021 06:11-0500 Body height 170.1 cm No Pcp Required [facility] 06-08-2021 06:11-0500 Body temperature 97.16 [degF] No Pcp Required [facility] 06-08-2021 06:11-0500 Body weight 136 kg No Pcp Required [facility] 06-08-2021 06:11-0500 Diastolic blood pressure 100 mm[Hg] No Pcp Required [facility] 06-08-2021 06:11-0500 Heart rate 91 /min No Pcp Required [facility] 06-08-2021 06:11-0500 Respiratory rate 18 /min No Pcp Required [facility] 06-08-2021 06:11-0500 SaO2% (BldA) [Mass fraction] 97 % No Pcp Required [facility] 06-08-2021 06:11-0500 Systolic blood pressure 176 mm[Hg] No Pcp Required [facility] 05-30-2021 21:22-0500 Diastolic blood pressure 100 mm[Hg] No Pcp Required [facility] 05-30-2021 21:22-0500 Heart rate 96 /min No Pcp Required [facility] 05-30-2021 21:22-0500 Respiratory rate 18 /min No Pcp Required [facility] 05-30-2021 21:22-0500 SaO2% (BldA) [Mass fraction] 95 % No Pcp Required [facility] 05-30-2021 21:22-0500 Systolic blood pressure 180 mm[Hg] No Pcp Required [facility] 05-30-2021 06:05-0500 Body height 170.1 cm No Pcp Required [facility] 05-30-2021 06:05-0500 Body temperature 97.7 [degF] No Pcp Required [facility] 05-30-2021 06:05-0500 Body weight 136 kg No Pcp Required [facility] 04-09-2021 11:40-0400 Diastolic blood pressure 87 mm[Hg] No Pcp Required [facility] 04-09-2021 11:40-0400 Heart rate 90 /min No Pcp Required [facility] 04-09-2021 11:40-0400 Respiratory rate 18 /min No Pcp Required [facility] 04-09-2021 11:40-0400 SaO2% (BldA) [Mass fraction] 95 % No Pcp Required [facility] 04-09-2021 11:40-0400 Systolic blood pressure 145 mm[Hg] No Pcp Required [facility] 04-09-2021 07:33-0400 Body height 170.1 cm No Pcp Required [facility] 04-09-2021 07:33-0400 Body temperature 97.16 [degF] No Pcp Required [facility] 04-09-2021 07:33-0400 Body weight 136 kg No Pcp Required [facility] 08-20-2019 03:56-0500 BMI (Body Mass Index) 46.99 kg/m2 [facility], [place] 08-20-2019 03:56-0500 Body Temperature 98.2 [degF] [facility], [place] 08-20-2019 03:56-0500 Body weight 136.08 kg [facility], [place] 08-20-2019 03:56-0500 BP Diastolic 95 mm[Hg] [facility] [place] 08-20-2019 03:56-0500 BP Systolic 150 mm[Hg] [facility] [place] 08-20-2019 03:56-0500 Height 170.2 cm [facility] [place] 08-20-2019 03:56-0500 Pulse (Heart Rate) 92 /min [facility] [place] 08-20-2019 03:56-0500 Pulse Oximetry 95 % [facility] [place] 08-20-2019 03:56-0500 Respiratory Rate 16 /min [facility] [place] 06-11-2019 23:06-0500 Diastolic blood pressure 93 mm[Hg] Yoon Erazo MD Work Phone: [email or web address] Work Phone: 06-11-2019 23:06-0500 SaO2% (BldA) [Mass fraction] 91 % Yoon Erazo MD Work Phone: [email or web address] Work Phone: 06-11-2019 23:06-0500 Systolic blood pressure 143 mm[Hg] Yoon Erazo MD Work Phone: [email or web address] Work Phone: 06-11-2019 22:10-0500 Body height 170.2 cm Yoon Erazo MD Work Phone: [email or web address] Work Phone: 06-11-2019 22:10-0500 Body mass index (BMI) [Ratio] 46.99 kg/m2 Yoon Erazo MD Work Phone: [email or web address] Work Phone: 06-11-2019 22:10-0500 Body temperature 97.7 [degF] Yoon Erazo MD Work Phone: [email or web address] Work Phone: 06-11-2019 22:10-0500 Body weight 136.08 kg Yoon Erazo MD Work Phone: [employer] Phone: 06-11-2019 22:10-0500 Heart rate 91 /min Yoon Erazo MD Work Phone: [employer] Phone: 06-11-2019 22:10-0500 Respiratory rate 14 /min Yoon Erazo MD Work Phone: [email or web address] Work Phone: 06-08-2019 01:59-0500 Body height 170.2 cm Ruddy Braden MD [employer] Phone: 06-08-2019 01:59-0500 Body mass index (BMI) [Ratio] 46.99 kg/m2 Ruddy Braden MD [employer] Phone: 06-08-2019 01:59-0500 Body temperature 97.9 [degF] Ruddy Braden MD [email or web address] Work Phone: 06-08-2019 01:59-0500 Body weight 136.08 kg Ruddy Braden MD [employer] Phone: 06-08-2019 01:59-0500 Diastolic blood pressure 94 mm[Hg] Ruddy Braden MD [employer] Phone: 06-08-2019 01:59-0500 Heart rate 90 /min Ruddy Braden MD [employer] Phone: 06-08-2019 01:59-0500 Respiratory rate 20 /min Ruddy Braden MD [employer] Phone: 06-08-2019 01:59-0500 SaO2% (BldA) [Mass fraction] 95 % Ruddy Braden MD [employer] Phone: 06-08-2019 01:59-0500 Systolic blood pressure 164 mm[Hg] Ruddy Braden MD [employer] Phone: Encounters Encounter Date Encounter Type Care Provider Facility Start: 08-16-2023 Refill Daniela Suggs LPN [facility] Comment on above: Endometriosis (Prima ry Dx) Start: 07-25-2023 End: 07-25-2023 [facility] Start: 07-25-2023 End: 07-25-2023 Office outpatient new 45 minutes Ngozi Bell PA-C Work Phone: [facility] Comment on above: Endometriosis (Prima ry Dx); Chronic pelvic pain in female; Sacroiliitis (CMS-HCC); Lumbosacral spondylosis without myelopathy; Encounter for long-term use of opiate analgesic; Pelvic pain; Visit for screening mammogram; Dysmenorrhea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 for culture. Curved Hemostats were used to deloculate any collections. After complete drainage, the wound was then irrigated with normal saline and packed with Kerlix. Dressing was then placed. There was minimal bleeding and patient tolerated the procedure with no immediate complication. The patient is given instructions on wound care. Tolerance: good Electronic Signatures: Edie Rodriges) (Signed 30-May-2021 15:51) Authored: Pre-procedure Verification and Time Out, General Information, Procedure Details, Note Completion Last Updated: 30-May-2021 15:51 by Edie Rodriges) [facility] 04-09-2021 Note Education Materials Gastroenterology Viral Gastroenteritis, Adult Viral gastroenteritis is also known as the stomach flu. This condition may affect your stomach, small intestine, and large intestine. It can cause sudden watery diarrhea, fever, and vomiting. This condition is caused by many different viruses. These viruses can be passed from person to person very easily (are contagious). Diarrhea and vomiting can make you feel weak and cause you to become dehydrated. You may not be able to keep fluids down. Dehydration can make you tired and thirsty, cause you to have a dry mouth, and decrease how often you urinate. It is important to replace the fluids that you lose from diarrhea and vomiting. What are the causes? Gastroenteritis is caused by many viruses, including rotavirus and norovirus. Norovirus is the most common cause in adults. You can get sick after being exposed to the viruses from other people. You can also get sick by: ? Eating food, drinking water, or touching a surface contaminated with one of these viruses. ? Sharing utensils or other personal items with an infected person. What increases the risk? You are more likely to develop this condition if you: ? Have a weak body defense system (immune system). ? Live with one or more children who are younger than 2 years old. ? Live in a group home. ? Travel on cruise ships. What are the signs or symptoms? Symptoms of this condition start suddenly 1?3 days after exposure to a virus. Symptoms may last for a few days or for as long as a week. Common symptoms include watery diarrhea and vomiting. Other symptoms include: ? Fever. ? Headache. ? Fatigue. ? Pain in the abdomen. ? Chills. ? Weakness. ? Nausea. ? Muscle aches. ? Loss of appetite. How is this diagnosed? This condition is diagnosed with a medical history and physical exam. You may also have a stool test to check for viruses or other infections. How is this treated? This condition typically goes away on its own. The focus of treatment is to prevent dehydration and restore lost fluids (rehydration). This condition may be treated with: ? An oral rehydration solution (ORS) to replace important salts and minerals (electrolytes) in your body. Take this if told by your health care provider. This is a drink that is sold at pharmacies and retail stores. ? Medicines to help with your symptoms. ? Probiotic supplements to reduce symptoms of diarrhea. ? Fluids given through an IV, if dehydration is severe. Older adults and people with other diseases or a weak immune system are at higher risk for dehydration. Follow these instructions at home: Eating and drinking ? Take an ORS as told by your health care provider. ? Drink clear fluids in small amounts as you are able. Clear fluids include: ? Water. ? Ice chips. ? Diluted fruit juice. ? Low-calorie sports drinks. ? Drink enough fluid to keep your urine pale yellow. ? Eat small amounts of healthy foods every 3?4 hours as you are able. This may include whole grains, fruits, vegetables, lean meats, and yogurt. ? Avoid fluids that contain a lot of sugar or caffeine, such as energy drinks, sports drinks, and soda. ? Avoid spicy or fatty foods. ? Avoid alcohol. General instructions ? Wash your hands often, especially after having diarrhea or vomiting. If soap and water are not available, use hand rig welder. ? Make sure that all people in your household wash their hands well and often. ? Take qhni-pfx-jayqwjm and prescription medicines only as told by your health care provider. ? Rest at home while you recover. ? Watch your condition for any changes. ? Take a warm bath to relieve any burning or pain from frequent diarrhea episodes. ? Keep all follow-up visits as told by your health care provider. This is important. Contact a health care provider if you: ? Cannot keep fluids down. ? Have symptoms that get worse. ? Have new symptoms. ? Feel light-headed or dizzy. ? Have muscle cramps. Get help right away if you: ? Have chest pain. ? Feel extremely weak or you faint. ? See blood in your vomit. ? Have vomit that looks like coffee grounds. ? Have bloody or black stools or stools that look like tar. ? Have a severe headache, a stiff neck, or both. ? Have a rash. ? Have severe pain, cramping, or bloating in your abdomen. ? Have trouble breathing or you are breathing very quickly. ? Have a fast heartbeat. ? Have skin that feels cold and clammy. ? Feel confused. ? Have pain when you urinate. ? Have signs of dehydration, such as: ? Dark urine, very little urine, or no urine. ? Cracked lips. ? Dry mouth. ? Sunken eyes. ? Sleepiness. ? Weakness. Summary ? Viral gastroenteritis is also known as the stomach flu. It can cause sudden watery diarrhea, fever, and vomiting. ? This condition can be passed (more content not included)... [facility] 01-16-2021 Note Education Materials Gastroenterology Abdominal Pain, Adult Pain in the abdomen (abdominal pain) can be caused by many things. Often, abdominal pain is not serious and it gets better with no treatment or by being treated at home. However, sometimes abdominal pain is serious. Your health care provider will ask questions about your medical history and do a physical exam to try to determine the cause of your abdominal pain. Follow these instructions at home: Medicines ? Take pkzq-jbm-nngllss and prescription medicines only as told by your health care provider. ? Do not take a laxative unless told by your health care provider. General instructions ? Watch your condition for any changes. ? Drink enough fluid to keep your urine pale yellow. ? Keep all follow-up visits as told by your health care provider. This is important. Contact a health care provider if: ? Your abdominal pain changes or gets worse. ? You are not hungry or you lose weight without trying. ? You are constipated or have diarrhea for more than 2?3 days. ? You have pain when you urinate or have a bowel movement. ? Your abdominal pain wakes you up at night. ? Your pain gets worse with meals, after eating, or with certain foods. ? You are vomiting and cannot keep anything down. ? You have a fever. ? You have blood in your urine. Get help right away if: ? Your pain does not go away as soon as your health care provider told you to expect. ? You cannot stop vomiting. ? Your pain is only in areas of the abdomen, such as the right side or the left lower portion of the abdomen. Pain on the right side could be caused by appendicitis. ? You have bloody or black stools, or stools that look like tar. ? You have severe pain, cramping, or bloating in your abdomen. ? You have signs of dehydration, such as: ? Dark urine, very little urine, or no urine. ? Cracked lips. ? Dry mouth. ? Sunken eyes. ? Sleepiness. ? Weakness. ? You have trouble breathing or chest pain. Summary ? Often, abdominal pain is not serious and it gets better with no treatment or by being treated at home. However, sometimes abdominal pain is serious. ? Watch your condition for any changes. ? Take jyuo-pck-abdjtxw and prescription medicines only as told by your health care provider. ? Contact a health care provider if your abdominal pain changes or gets worse. ? Get help right away if you have severe pain, cramping, or bloating in your abdomen. This information is not intended to replace advice given to you by your health care provider. Make sure you discuss any questions you have with your health care provider. Document Revised: 10/13/2019 Document Reviewed: 10/13/2019 popAD Patient Education ? 2019 [employer]. [facility] 10-28-2020 Note [id number] [facility] 10-24-2020 Note Education Materials Gastroenterology Food Choices to Help Relieve Diarrhea, Adult When you have diarrhea, the foods you eat and your eating habits are very important. Choosing the right foods and drinks can help: ? Relieve diarrhea. ? Replace lost fluids and nutrients. ? Prevent dehydration. What general guidelines should I follow? Relieving diarrhea ? Choose foods with less than 2 g or .07 oz. of fiber per serving. ? Limit fats to less than 8 tsp (38 g or 1.34 oz.) a day. ? Avoid the following: ? Foods and beverages sweetened with high-fructose corn syrup, honey, or sugar alcohols such as xylitol, sorbitol, and mannitol. ? Foods that contain a lot of fat or sugar. ? Fried, greasy, or spicy foods. ? High-fiber grains, breads, and cereals. ? Raw fruits and vegetables. ? Eat foods that are rich in probiotics. These foods include dairy products such as yogurt and fermented milk products. They help increase healthy bacteria in the stomach and intestines (gastrointestinal tract, or GI tract). ? If you have lactose intolerance, avoid dairy products. These may make your diarrhea worse. ? Take medicine to help stop diarrhea (antidiarrheal medicine) only as told by your health care provider. Replacing nutrients ? Eat small meals or snacks every 3?4 hours. ? Eat bland foods, such as white rice, toast, or baked potato, until your diarrhea starts to get better. Gradually reintroduce nutrient-rich foods as tolerated or as told by your health care provider. This includes: ? Well-cooked protein foods. ? Peeled, seeded, and soft-cooked fruits and vegetables. ? Low-fat dairy products. ? Take vitamin and mineral supplements as told by your health care provider. Preventing dehydration ? Start by sipping water or a special solution to prevent dehydration (oral rehydration solution, ORS). Urine that is clear or pale yellow means that you are getting enough fluid. ? Try to drink at least 8?10 cups of fluid each day to help replace lost fluids. ? You may add other liquids in addition to water, such as clear juice or decaffeinated sports drinks, as tolerated or as told by your health care provider. ? Avoid drinks with caffeine, such as coffee, tea, or soft drinks. ? Avoid alcohol. What foods are recommended? The items listed may not be a complete list. Talk with your health care provider about what dietary choices are best for you. Grains White rice. White, Kyrgyz, or odette breads (fresh or toasted), including plain rolls, buns, or bagels. White pasta. Saltine, soda, or zarina crackers. Pretzels. Low-fiber cereal. Cooked cereals made with water (such as cornmeal, farina, or cream cereals). Plain muffins. Matzo. Kym toast. Zwieback. Vegetables Potatoes (without the skin). Most well-cooked and canned vegetables without skins or seeds. Tender lettuce. Fruits Apple sauce. Fruits canned in juice. Cooked apricots, cherries, grapefruit, peaches, pears, or plums. Fresh bananas and cantaloupe. Meats and other protein foods Baked or boiled chicken. Eggs. Tofu. Fish. Seafood. Smooth nut butters. Ground or well-cooked tender beef, ham, veal, saldaña, pork, or poultry. Dairy Plain yogurt, kefir, and unsweetened liquid yogurt. Lactose-free milk, buttermilk, skim milk, or soy milk. Low-fat or nonfat hard cheese. Beverages Water. Low-calorie sports drinks. Fruit juices without pulp. Strained tomato and vegetable juices. Decaffeinated teas. Sugar-free beverages not sweetened with sugar alcohols. Oral rehydration solutions, if approved by your health care provider. Seasoning and other foods Bouillon, broth, or soups made from recommended foods. What foods are not recommended? The items listed may not be a complete list. Talk with your health care provider about what dietary choices are best for you. Grains Whole grain, whole wheat, bran, or rye breads, rolls, pastas, and crackers. Wild or brown rice. Whole grain or bran cereals. Barley. Oats and oatmeal. [place] tortillas or taco shells. Granola. Popcorn. Vegetables Raw vegetables. Fried vegetables. Cabbage, broccoli, [place] sprouts, artichokes, baked beans, beet greens, corn, kale, legumes, peas, sweet potatoes, and yams. Potato skins. Cooked spinach and cabbage. Fruits Dried fruit, including raisins and dates. Raw fruits. Stewed or dried prunes. Canned fruits with syrup. Meat and other protein foods Fried or fatty meats. Deli meats. [place] nut butters. Nuts and seeds. Beans and lentils. [place]. Hot dogs. Sausage. Dairy High-fat cheeses. Whole milk, chocolate milk, and beverages made with milk, such as milk shakes. Hynx-dwj-lqlg. Cream. sour cream. Ice cream. Beverages Caffeinated beverages (such as coffee, tea, soda, or energy drinks). Alcoholic beverages. Fruit juices with pulp. Prune juice. Soft drinks sweetened with high-fructose corn syrup or sugar alcohols. High (more content not included)... [facility] 10-12-2020 Note [id number] [id number] [facility] 10-09-2020 Note Education Materials Gastroenterology Abdominal Pain, Adult Pain in the abdomen (abdominal pain) can be caused by many things. Often, abdominal pain is not serious and it gets better with no treatment or by being treated at home. However, sometimes abdominal pain is serious. Your health care provider will ask questions about your medical history and do a physical exam to try to determine the cause of your abdominal pain. Follow these instructions at home: Medicines ? Take rnfa-lcg-chdfhsl and prescription medicines only as told by your health care provider. ? Do not take a laxative unless told by your health care provider. General instructions ? Watch your condition for any changes. ? Drink enough fluid to keep your urine pale yellow. ? Keep all follow-up visits as told by your health care provider. This is important. Contact a health care provider if: ? Your abdominal pain changes or gets worse. ? You are not hungry or you lose weight without trying. ? You are constipated or have diarrhea for more than 2?3 days. ? You have pain when you urinate or have a bowel movement. ? Your abdominal pain wakes you up at night. ? Your pain gets worse with meals, after eating, or with certain foods. ? You are vomiting and cannot keep anything down. ? You have a fever. ? You have blood in your urine. Get help right away if: ? Your pain does not go away as soon as your health care provider told you to expect. ? You cannot stop vomiting. ? Your pain is only in areas of the abdomen, such as the right side or the left lower portion of the abdomen. Pain on the right side could be caused by appendicitis. ? You have bloody or black stools, or stools that look like tar. ? You have severe pain, cramping, or bloating in your abdomen. ? You have signs of dehydration, such as: ? Dark urine, very little urine, or no urine. ? Cracked lips. ? Dry mouth. ? Sunken eyes. ? Sleepiness. ? Weakness. ? You have trouble breathing or chest pain. Summary ? Often, abdominal pain is not serious and it gets better with no treatment or by being treated at home. However, sometimes abdominal pain is serious. ? Watch your condition for any changes. ? Take itjc-gid-nzkeifc and prescription medicines only as told by your health care provider. ? Contact a health care provider if your abdominal pain changes or gets worse. ? Get help right away if you have severe pain, cramping, or bloating in your abdomen. This information is not intended to replace advice given to you by your health care provider. Make sure you discuss any questions you have with your health care provider. Document Released: 03/14/2006 Document Revised: 10/13/2019 Document Reviewed: 10/13/2019 popAD Patient Education ? 2019 [employer]. Immunology Crohn's Disease Crohn's disease is a long-lasting (chronic) disease that affects the gastrointestinal (GI) tract. Crohn's disease often causes irritation and inflammation in the small intestine and the beginning of the large intestine, but it can affect any part of the GI tract. Crohn's disease is part of a group of illnesses that are known as inflammatory bowel disease (IBD). Crohn's disease may start slowly and get worse over time. Symptoms may come and go. They may also go away for months or even years at a time (remission). What are the causes? The exact cause of this condition is not known. It may involve a response that causes your body's disease-fighting (immune) system to attack healthy cells and tissues (autoimmune response). Bacteria, genes, and your environment may also play a role. What increases the risk? The following factors may make you more likely to develop this condition: ? Having a family member who has Crohn's disease, another IBD, or an autoimmune condition. ? Using products that contain nicotine or tobacco, such as cigarettes and e-cigarettes. ? Being in your 20s. ? Having [place] ancestry. What are the signs or symptoms? The main symptoms of this condition involve your GI tract. These include: ? Diarrhea. ? Pain or cramping in the abdomen. This is commonly felt in the lower right side of the abdomen. ? Frequent watery or bloody stools. ? Constipation. This may mean having: ? Fewer bowel movements in a week than normal. ? Difficulty having a bowel movement. ? Stools that are dry, hard, or larger than normal. ? Rectal bleeding. ? Rectal pain. ? An urgent need to have a bowel movement. ? The feeling that you are not finished having a bowel movement. Other symptoms may include: ? Unexplained weight loss. ? Fatigue. ? Fever. ? Nausea. ? Loss of appetite. ? Joint pain. ? Vision changes. ? Red bumps or sores on the skin. ? Sores inside the mouth. How is this diagnosed? This condition may be diagnosed based on: ? Your symptoms and your medical history. ? A physical exam. ? Tests, (more content not included)... [facility] Evaluation note Constitutional: Awake/alert/oriented x3, no distress, alert and cooperativeSkin: Warm and dry, no lesions, no rashesEyes: EOMI, clear scleraRespiratory/Thorax: Patent airways, CTABCardiovascular: Regular, rate and rhythmGastrointestinal: Nondistended, soft, mild erythema and warmth of right lower abdominal wall with area of induration and fluctuance, and exquisite tenderness to palpationExtremities: normal extremities, no cyanosis edema, contusions or woundsNeurological: alert and oriented x3, gross motor function and sensation intactPsychological: Appropriate mood and behavior [facility] Evaluation note Diagnosis Right lower quadrant abdominal pain- Primary Abdominal pain, right lower quadrant documented in this encounter [employer] Phone: evaluation note* Diagnosis Lower abdominal pain- Primary Abdominal pain, other specified site documented in this encounter [employer] Phone: evaluation noteNo assessment information available [facility] Work Phone: Evaluation note* Diagnosis Endometriosis- Primary Endometriosis, site unspecified Chronic pelvic pain in female Unspecified symptom associated with female genital organs Sacroiliitis (CMS-HCC) Sacroiliitis, not elsewhere classified Lumbosacral spondylosis without myelopathy Encounter for long-term use of opiate analgesic Encounter for long-term (current) use of other medications Pelvic pain Visit for screening mammogram Dysmenorrhea documented in this encounter TATE'S LIST SystemEvaluation note* Diagnosis Endometriosis- Primary Endometriosis, site unspecified documented in this encounter [facility]* Instructions* Haylee Givens MD - 06/08/2019 Please follow-up with your implementation advisor for your Crohn's disease. Return to the emergency department for any new or worsening symptoms. THANK YOU!!! From [facility] Emergency Department On behalf of the Emergency Department staff at [facility]'s Emergency Department, I would like to thank you for giving [facility] the opportunity to address your health care needs and concerns. We hope that during your visit, our service was delivered in a professional and caring manner. Please keep Ana Welsh in mind as we walk with you down the path to your own personal wellness. Please expect an automated phone call from so we can ask a few questions about your health and progress. Based on your answers, a clinician may call you back to offer help and instructions. [facility]: Hospital Discharge instructions* Instructions* Xander Lazaro, DO - 06/12/2019 Focus on oral hydration, continue to take your medications as prescribed, follow-up with your GI doctor as scheduled, return to emergency department if you develop any fever, chills increasing pain, blood in your stool. [facility] Work Phone: Hospital Discharge instructions Additional Instructions Follow-up with your primary care doctor Return to the ED if develop worsening symptoms or concernsTri[facility] Work Phone: InstructionsNot on filedocumented in this encounter [facility] [employer] SystemInstructionsNot on filedocumented in this encounter [facility] Summary Purpose Family History No Family History Records FoundNo Family History Records FoundNo Family History Records FoundNo Family History Records FoundNo Family History Records FoundNo Family History Records FoundNo Family History Records FoundNo Family History Records FoundNo Family History Records FoundNo Family History Records FoundNo Family History Records FoundNo Family History Records FoundNo Family History Records FoundNo Family History Records FoundNo Family History Records Found Advance Directives Documents on File Type Date Recorded Patient [facility] Expl anation Advance Directives and Living Will 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 of Traveling Storekeeper Latest Code Status on File Code Status Date Activated Date Inactivated Comments Full Code 11/07/2018 3:00 PM 11/08/2018 6:23 PM Full Code 12/09/2017 12:20 AM 12/09/2017 2:55 PM Advance Directive Response Recorded Date/ Time Advance Directives No October 24, 2020 1:35pm Latest Code Status on File Code Status Date Activated Date Inactivated Comments Full Code 02/05/2021 6:47 AM 02/07/2021 4:51 PM Latest Code Status on File Code Status Date Activated Date Inactivated Comments Full Code 02/05/2021 6:47 AM 02/07/2021 4:51 PM Discharge Instructions * Attachments The following attachments cannot be sent through Care Everywhere. * Abdominal Pain ([place]) documented in this encounter Assessments Diagnosis Abdominal pain, unspecified abdominal location- Primary Chief Complaint and Reason for Visit Chief Complaint abd pain,vomiting Chief Complaint Lower abd pain Chief Complaint abd pain hx crohns Chief Complaint Crohn's flare up Reason for Referral Specialty Diagnoses / Procedures Referred By Dianna t Referred To Contact Diagnoses Endometriosis Ngozi Bell PA-C [address] [place] [address] Referral ID Status Reason Start Date Expiration Date V isits Requested Visits Authorized [id number] Pending Review 1 1 Additional Source Comments INFORMATION SOURCE (unrecogn ized section and content) DATE CREATED AUTHOR 06/13/2019 [facility] DATE CREATED AUTHOR AUTHOR'S ORGANIZ ATION 08/12/2019 [facility] DATE CREATED AUTHOR AUTHOR'S ORGANIZ ATION 08/20/2019 [facility] DATE CREATED AUTHOR AUTHOR'S ORGANIZ ATION 10/08/2020 [facility] DATE CREATED AUTHOR AUTHOR'S ORGANIZ ATION 11/11/2020 [facility] DATE CREATED AUTHOR AUTHOR'S ORGANIZ ATION 04/21/2021 [facility] DATE CREATED AUTHOR AUTHOR'S ORGANIZ ATION 09/06/2021 [facility] DATE CREATED AUTHOR AUTHOR'S ORGANIZ ATION 12/17/2021 [facility] DATE CREATED AUTHOR AUTHOR'S ORGANIZ ATION 01/22/2022 [facility] DATE CREATED AUTHOR AUTHOR'S ORGANIZ ATION 01/23/2022 [facility] DATE CREATED AUTHOR AUTHOR'S ORGANIZ ATION 02/12/2022 [facility] DATE CREATED AUTHOR AUTHOR'S ORGANIZ ATION 03/21/2022 [facility] DATE CREATED AUTHOR AUTHOR'S ORGANIZ ATION 09/27/2022 [facility] DATE CREATED AUTHOR AUTHOR'S ORGANIZ ATION 07/28/2023 [facility] DATE CREATED AUTHOR AUTHOR'S ORGANIZ ATION 07/30/2023 [facility] Reason for Visit (unrecogniz ed section and content) Reason Comments Abdominal Pain Nausea Diarrhea Reason Comments Abdominal Pain x week and a half Reason Comments Abdominal Pain Right lower quadrant pain Endometriosis Polycystic Ovary Syndrome <item><item><item><item> Privacy Markings (unrecogniz ed section and content) Section Author: Anna Tomas PROHIBITION ON REDISCLOSURE OF CONFIDENTIAL INFORMATION This notice accompanies a disclosure of information concerning a client made to you with the consent of such client. Section Author: Anna Tomas PROHIBITION ON REDISCLOSURE OF CONFIDENTIAL INFORMATION This notice accompanies a disclosure of information concerning a client made to you with the consent of such client. Section Author: Anna Tomas PROHIBITION ON REDISCLOSURE OF CONFIDENTIAL INFORMATION This notice accompanies a disclosure of information concerning a client made to you with the consent of such client. Section Author: Anna Tomas PROHIBITION ON REDISCLOSURE OF CONFIDENTIAL INFORMATION This notice accompanies a disclosure of information concerning a client made to you with the consent of such client. Care Teams (unrecognized sec tion and content) Team Status: Inactive Member Role Status Dates NON STAFF Primary Care Provider Active Johnnie Pearson PA-C Emergency Provider Active Team Status: Active Member Role Status Dates NON STAFF Primary Care Provider Active Team Status: Inactive Member Role Status Dates NON STAFF Primary Care Provider Active Myles Felix DO Emergency Provider Active Team Status: Inactive Member Role Status Dates PHYSICIAN NO FAMILY Primary Care Provider Active Huey Maharaj Jr, MD Emergency Provider Active Team Status: Active Member Role Status Dates PHYSICIAN NO FAMILY Primary Care Provider Active Team Status: Active Member Role Status Dates No Provider Primary Care Provider Active Team Status: Inactive Member Role Status Dates No Provider Primary Care Provider Active Start: July 06, 2023 End: July 06, 2023 Xander Barone MD Emergency Provider Active Start: July 06, 2023 End: July 06, 2023 Client Sales And Service Officer Relationship Specialty Start Date End Date Duke Velazquez MD [address] [place] [address] PCP - General Internal Medicine 08/30/17 Client Sales And Service Officer Relationship Specialty Start Date End Date Duke Velazquez MD [address] [place] [address] PCP - General Internal Medicine 08/30/17 Goals (unrecognized section and content) Goals may be documented in a n alternate sectionGoals may be documented in an alternate sectionGoals may be documented in an alternate sectionGoals may be documented in an alternate sectionNot on filedocumented as of this encounterNot on filedocumented as of this encounter FOR RECORDS PERTAINING TO PATIENTS WHO ARE OR HAVE BEEN ENROLLED IN A CHEMICAL DEPENDENCY/SUBSTANCEABUSE PROGRAM, SOME INFORMATION MAY BE OMITTED. This clinical summary was aggregated from multiple sources. Caution should be exercised in using it in the provision of clinical care. This summary normalizes information from multiple sources, and as a consequence, information in this document may materially change the coding, format and clinical context of patient data. In addition, data may be omitted in some cases. CLINICAL DECISIONS SHOULD BE BASED ON THE PRIMARY CLINICAL RECORDS. [facility]. provides no warranty or guarantee of the accuracy or completeness of information in this document.
[2023-08-29] MEDS: ONDANSETRON PF 4 MG/2 ML VIAL IV ×2 (20:11→21:58)
[2023-08-29] MEDS: METHYLPREDNISOLONE SOD SUCC PF 125 MG/2 ML VIAL IVP (20:11)
[2023-08-29] MEDS: 0.9 % SODIUM CHLORIDE 1,000 ML 999 ML IV (20:12)
[2023-08-29] MEDS: HYDROMORPHONE HCL 1 MG/ML CARTRIDGE IVP (20:12)
[2023-08-29 20:29] LABS: Basophils Percent Auto 0.5 % (0.2-2.0); Eosinophils Absolute Auto 0.1 10^3/uL (0.0-0.7); Eosinophils Percent Auto 1.1 % (0.9-7.0); Hematocrit 42.2 % (36.0-48.0); Hemoglobin 13.6 g/dL (12.0-16.0); Immature Granulocytes Abs Auto 0.03 10^3/uL (0.00-0.03); Immature Granulocytes Pct Auto 0.3 % (0.0-0.5); Lymphocytes Absolute Auto 1.6 10^3/uL (1.2-3.8); Lymphocytes Percent Auto 18.8 % (20.5-60.0); Mean Corpuscular HGB Conc 32.2 g/dL (29.9-35.2); Mean Corpuscular Hemoglobin 28.2 pg (26.7-34.0); Mean Corpuscular Volume 87.4 fL (81.0-99.0); Mean Platelet Volume 9.3 fL (9.5-13.5); Monocytes Absolute Auto 0.9 10^3/uL (0.3-0.8); Monocytes Percent Auto 10.2 % (1.7-12.0); Neutrophils Percent Auto 69.1 % (43.0-75.0); Platelet Count 317 10^3/uL (150-450); Red Blood Count 4.83 10^6/uL (4.20-5.40); Red Cell Distribution Width 13.2 % (11.0-15.0); White Blood Count 8.7 10^3/uL (4.0-11.0)
[2023-08-29 20:30] LABS: Bilirubin Urine NEGATIVE (NEGATIVE); Blood Urine TRACE-I (NEGATIVE); Clarity Urine CLEAR (CLEAR); Color Urine LT. YELLOW (YELLOW); Glucose Urine UA >=1000 mg/dL (NEGATIVE); Ketones Urine NEGATIVE (NEGATIVE); Leukocyte Esterase Urine NEGATIVE (NEGATIVE); Nitrite Urine NEGATIVE (NEGATIVE); Protein Urine NEGATIVE (NEG/TRACE); Specific Gravity Urine 1.025 (1.005-1.025); Urobilinogen Urine 0.2 EU/dL (0.2-1.0); pH Urine 5.5 (5.0-9.0)
[2023-08-29 20:33] LABS: Urine Microscopic Indicated YES
[2023-08-29 20:44] LABS: Bacteria Urine NONE SEEN #/HPF (NONE SEEN); Cast Seen? NONE SEEN #/LPF (NONE SEEN); Crystals Seen? None Seen #/HPF (None Seen); Mucus Urine NONE SEEN (NONE SEEN); RBC Urine 0-2 #/HPF (0-2); Squamous Epithelial Cell Urine FEW #/LPF (NONE/RARE); WBC Urine NONE SEEN #/HPF (NONE SEEN)
[2023-08-29 20:45] LABS: Alanine Aminotransferase 41 U/L (14-59); Albumin Globulin Ratio 0.7; Albumin Level 3.3 g/dL (3.4-5.0); Alkaline Phosphatase 85 U/L (46-116); Anion Gap 14.4; Aspartate Amino Transferase 24 U/L (15-37); BUN Creatinine Ratio 14.4; Bilirubin Total 0.6 mg/dL (0.2-1.0); Calcium 9.4 mg/dL (8.5-10.1); Carbon Dioxide 27.9 mmol/L (21.0-32.0); Chloride 96 mmol/L (98-107); Estimated GFR (African America >60 (>=60); Estimated GFR (Non-African Ame >60 (>=60); Globulin 4.5 g/dL; Glucose 209 mg/dL (74-106); Potassium 3.3 mmol/L (3.5-5.1); Sodium 135 mmol/L (136-145); Total Protein 7.8 g/dL (6.4-8.2)
[2023-08-29 20:45] LABS: Urine Culture Indicated NO
--- NOTE | 2023-08-29 20:57 | ED.ABDPAIN1 ---
HPI - Abdominal Pain General Chief Complaint: Abdominal Pain Stated Complaint: ABD PAIN Time Seen by Provider: 08/29/23 19:25 Source: patient Mode of arrival: walk-in Limitations: no limitations History of Present Illness HPI narrative: Patient with Crohn's returns complaining of right lower abdominal pain, 3 days of diarrhea and one day of nausea and vomiting - 4-5 bouts of emesis. She was recently placed on 20mg prednisone daily by her doctor in [place]. She denied fever. No urinary symptoms. PSHx includes cholecystectomy, appendectomy and oophorectomy. Denied any chance of . Gets Humira injections every two weeks. Related Data Home Medications Medication Instructions Recorded Confirmed albuterol sulfate 90 mcg/actuation 2 puff inhalation Q6H PRN 01/19/23 08/29/23 aerosol inhaler (Ventolin HFA) shortness of breath or wheezing empagliflozin 25 mg tablet 25 mg PO DAILY 01/19/23 08/29/23 (Jardiance) escitalopram oxalate 10 mg tablet 10 mg PO DAILY 01/19/23 08/29/23 hydrochlorothiazide 12.5 mg tablet 25 mg PO DAILY 01/19/23 08/29/23 insulin glargine 100 unit/mL (3 32 unit subcut QAM 01/19/23 08/29/23 mL) subcutaneous pen (Lantus Solostar U-100 Insulin) insulin lispro 100 unit/mL 1 sliding scale dose subcut 01/19/23 08/29/23 subcutaneous pen (Humalog KwikPen TIDWMEAL (U-100) Insulin) lisinopril 20 mg tablet 20 mg PO DAILY 01/19/23 08/29/23 magnesium oxide 400 mg (241.3 mg 400 mg PO DAILY 01/19/23 08/29/23 magnesium) tablet oxycodone-acetaminophen 10 mg-325 1 tab PO Q8H PRN pain 01/19/23 08/29/23 mg tablet tiotropium bromide 1.25 2 puff inhalation DAILY 01/19/23 08/29/23 mcg/actuation mist for inhalation (Spiriva Respimat) tizanidine 4 mg tablet 4 mg PO DAILY 01/19/23 08/29/23 trazodone 150 mg tablet 150 mg PO DAILY 01/19/23 08/29/23 atorvastatin 20 mg tablet 20 mg PO QPM 07/03/23 08/29/23 Previous Rx's Medication Instructions Recorded hyoscyamine sulfate 0.125 mg 0.125 mg PO Q6H PRN abdominal pain 08/29/23 sublingual tablet (Levsin/SL) #20 tabs ondansetron 4 mg disintegrating 4 mg PO Q6H PRN nausea and 08/29/23 tablet vomiting #20 tabs Allergies Allergy/AdvReac Type Severity Reaction Status Date / Time prochlorperazine Allergy Intermediate Shakiness Verified 08/29/23 19:22 [From Compazine] haloperidol [From Haldol] Allergy Unknown Verified 08/29/23 19:22 Iodinated Contrast Media Allergy Hives Verified 08/29/23 19:22 NSAIDS (Non-Steroidal AdvReac Severe Anaphylaxis Verified 08/29/23 19:22 Anti-Inflamma promethazine [From Phenergan] AdvReac Intermediate Shakiness Verified 08/29/23 19:22 [facility] Medical History (Updated 08/29/23 @ 21:46 by Paulo Arshad) Crohn's disease ?K50.90 - Crohn's disease, unspecified, without complications (ICD-10) Social History Smoking status: Never smoker Exam Narrative Exam Narrative: Nurses notes and vital signs reviewed and patient is not hypoxic. Afebrile General: Well-appearing and in no apparent distress. Skin: Warm, dry, no pallor noted. Eye: Pupils are equal, round and EOMI. No scleral icterus. Ears, Nose, Mouth, and Throat: Oral mucosa is slightly dry Cardiovascular: Borderline tachycardia Respiratory: No accessory muscle use or respiratory distress. Lungs are clear to auscultation, no wheezing, rales or rhonchi Back: No CVA tenderness Musculoskeletal: normal ROM GI: Abdomen is soft, non-distended. Normal bowel sounds. No masses appreciated. Right lower quadrant tenderness to palpation. No rebound, guarding, or rigidity noted. Neurological: A&O x4. No cranial nerve dysfunction observed. No truncal ataxia. Moves all extremities. Sensation intact. Psychiatric: Cooperative and interactive. Normal mood and affect. Constitutional Vital Signs, click to edit/add: Last Vital Signs Temp 97.8 F 08/29/23 19:19 Pulse 100 H 08/29/23 19:19 Resp 18 08/29/23 19:19 BP 115/75 08/29/23 19:19 Pulse Ox 98 08/29/23 19:19 O2 Del Method Room Air 08/29/23 19:19 Course Vital Signs Vital signs: Vital Signs Temperature 97.8 F 08/29/23 19:19 Pulse Rate 100 H 08/29/23 19:19 Respiratory Rate 18 08/29/23 19:19 Blood Pressure 115/75 08/29/23 19:19 Pulse Oximetry 98 08/29/23 19:19 Oxygen Delivery Method Room Air 08/29/23 19:19 Temperature 97.8 F 08/29/23 19:19 Pulse Rate 100 H 08/29/23 19:19 Respiratory Rate 18 08/29/23 19:19 Blood Pressure 115/75 08/29/23 19:19 Pulse Oximetry 98 08/29/23 19:19 Oxygen Delivery Method Room Air 08/29/23 19:19 MDM - Abdominal Pain MDM Narrative Medical decision making narrative: Patient sent for noncontrast CT scan due to her history of dye allergy. Blood drawn and sent for testing. Peripheral IV established and the patient received IV Solumedrol, Dilaudid, Zofran and normal saline IV fluid. CBC normal with normal white blood cell count. CMP notable for slightly decreased sodium at 135, slightly decreased potassium 3.3, normal kidney function, slightly elevated glucose at 209 and [place]. [id number], shows greater than 1000 glucose but no sign of acute UTI. CT abdomen/pelvis = no evidence to suggest acute colitis flare. Mild pneumobilia is noted -she is post cholecystectomy and denied any recent procedure. White blood cell count, LFTs and total bilirubin are normal so I do not suspect ascending cholangitis or other biliary tract infection. Results explained to patient and she was discharged home with prescriptions for Levsin, Zofran and instructions to maintain a clear liquid diet for the next 24 hours. She can then advance diet as toelrated. She was given Levsin in the ED before discharge. Lab Data Attestation: I reviewed the patient's lab results. Labs: Lab Results 08/29/23 08/29/23 Range/Units 20:00 20:05 WBC 8.7 (4.0-11.0) 10^3/uL RBC 4.83 (4.20-5.40) 10^6/uL Hgb 13.6 (12.0-16.0) g/dL Hct 42.2 (36.0-48.0) % MCV 87.4 (81.0-99.0) fL MCH 28.2 (26.7-34.0) pg MCHC 32.2 (29.9-35.2) g/dL RDW 13.2 (11.0-15.0) % Plt Count 317 (150-450) 10^3/uL MPV 9.3 L (9.5-13.5) fL Neut % (Auto) 69.1 (43.0-75.0) % Lymph % (Auto) 18.8 L (20.5-60.0) % [place] % (Auto) 10.2 (1.7-12.0) % Eos % (Auto) 1.1 (0.9-7.0) % Baso % (Auto) 0.5 (0.2-2.0) % Neut # (Auto) 6.0 (1.4-6.5) 10^3/uL Lymph # (Auto) 1.6 (1.2-3.8) 10^3/uL [place] # (Auto) 0.9 H (0.3-0.8) 10^3/uL Eos # (Auto) 0.1 (0.0-0.7) 10^3/uL Baso # (Auto) 0.0 (0.0-0.1) 10^3/uL Abs Immat Gran (auto) 0.03 (0.00-0.03) 10^3/uL Imm/Tot Granulo (auto) 0.3 (0.0-0.5) % Sodium 135 L (136-145) mmol/L Potassium 3.3 L (3.5-5.1) mmol/L Chloride 96 L (98-107) mmol/L Carbon Dioxide 27.9 (21.0-32.0) mmol/L Anion Gap 14.4 BUN 13.0 (7.0-18.0) mg/dL Creatinine 0.90 (0.55-1.02) mg/dL Est GFR ( Amer) >60 (>=60) Est GFR (Non-Af Amer) >60 (>=60) BUN/Creatinine Ratio 14.4 Glucose 209 H (74-106) mg/dL Calcium 9.4 (8.5-10.1) mg/dL Total Bilirubin 0.6 (0.2-1.0) mg/dL AST 24 (15-37) U/L ALT 41 (14-59) U/L Alkaline Phosphatase 85 (46-116) U/L Total Protein 7.8 (6.4-8.2) g/dL Albumin 3.3 L (3.4-5.0) g/dL Globulin 4.5 g/dL Albumin/Globulin Ratio 0.7 Urine Color Lt. yellow (YELLOW) Urine Clarity Clear (CLEAR) Urine pH 5.5 (5.0-9.0) Ur Specific [place] 1.025 (1.005-1.025) Urine Protein Negative (NEG/TRACE) mg/dL Urine Glucose (UA) >=1000 A (NEGATIVE) mg/dL Urine Ketones Negative (NEGATIVE) mg/dL Urine Occult Blood Trace-i (NEGATIVE) Urine Nitrite Negative (NEGATIVE) Urine Bilirubin Negative (NEGATIVE) Urine Urobilinogen 0.2 (0.2-1.0) EU/dL Ur Leukocyte Esterase Negative (NEGATIVE) Urine RBC 0-2 (0-2) #/HPF Urine WBC None seen (NONE SEEN) #/HPF Ur Squamous Epith Cells Few A (NONE/RARE) #/LPF Urine Crystals None seen (None Seen) #/HPF Urine Bacteria None seen (NONE SEEN) #/HPF Urine Casts None seen (NONE SEEN) #/LPF Urine Mucus None seen (NONE SEEN) Ur Culture Indicated? No Imaging Data CT scan - abdomen: Radiologist's impression: ITS Impressions Abdomen/Pelvis CT 08/29/23 19:37 IMPRESSION: 1. Mild pneumobilia. Correlate for any recent intervention to explain this finding. Less likely this may represent biliary tract infection. 2. Otherwise no significant acute abnormality identified in the abdomen or pelvis, within the limits of unenhanced CT, as described above. Electronically authenticated by: ALEJANDRO JARAMILLO Date: 08/29/2023 21:33 Discharge Plan Discharge Stand Alone Forms: Portal Instructions Chief Complaint: Abdominal Pain Clinical Impression: Abdominal pain Patient Disposition: Home, Self-Care Time of Disposition Decision: 21:46 Prescriptions / Home Meds: New hyoscyamine sulfate [Levsin/SL] 0.125 mg tablet, sublingual 0.125 mg PO Q6H PRN (Reason: abdominal pain) Qty: 20 0RF ondansetron 4 mg tablet,disintegrating 4 mg PO Q6H PRN (Reason: nausea and vomiting) Qty: 20 0RF No Action tizanidine 4 mg tablet 4 mg PO DAILY lisinopril 20 mg tablet 20 mg PO DAILY magnesium oxide 400 mg (241.3 mg magnesium) tablet 400 mg PO DAILY oxycodone-acetaminophen 10-325 mg tablet 1 tab PO Q8H PRN (Reason: pain) trazodone 150 mg tablet 150 mg PO DAILY albuterol sulfate [Ventolin HFA] 90 mcg/actuation HFA aerosol inhaler 2 puff INHALATION Q6H PRN (Reason: shortness of breath or wheezing) insulin lispro [Humalog KwikPen Insulin] 100 unit/mL insulin pen 1 sliding scale dose SUBCUT TIDWMEAL escitalopram oxalate 10 mg tablet 10 mg PO DAILY hydrochlorothiazide 12.5 mg tablet 25 mg PO DAILY insulin glargine [Lantus Solostar U-100 Insulin] 100 unit/mL (3 mL) insulin pen 32 unit SUBCUT QAM Jardiance 25 mg tablet 25 mg PO DAILY Spiriva Respimat 1.25 mcg/actuation mist 2 puff INHALATION DAILY atorvastatin 20 mg tablet 20 mg PO QPM Instructions: Clear Liquid Diet (ED), Abdominal Pain (ED) Referrals: Physician,Non-Staff, MD [Primary Care Provider] - 1 week
[2023-08-29] MEDS: HYOSCYAMINE SULFATE 0.125 MG TAB.SUBL SL (21:58)
== END 2023-08-29 22:09 | disposition home or self-care (01) ==
PROVIDERS: Emergency Provider Emergency Medicine
DX: R10.9 Unspecified abdominal pain (principal); K50.90 Crohn's disease, unspecified, without complications; Z90.49 Acquired absence of other specified parts of digestive tract; Z90.721 Acquired absence of ovaries, unilateral; Z79.899 Other long term (current) drug therapy; Z79.4 Long term (current) use of insulin
CPT/HCPCS: 36415; 74176; 80053; 81001; 85025; 96361; 96374; 96375; 96376; 99285; J1170; J2930

== ENCOUNTER 2023-09-15 16:39 | Emergency (ER) | payer OTHER, SELFPAY ==
[2023-09-15 16:42] VITALS: BP 161/94; PULSE 102; TEMP 36.4; O2SAT 95; BMI 47.0
--- OUTSIDE RECORDS SUMMARY | 2023-09-15 16:50 | XMS_ITS | CCD ---
Author Organization [facility] Care Team Providers Care Curb And Gutter Laborer Name Role Phone BHURGRI, DUKE Primary Care Unavailable MENDOZA FOREMAN Admitting Unavailable MENDOZA FOREMAN Attending Unavailable JUAREZ SIERRA Unavailable BHURGRI, DUKE Primary Care Unavailable RUDDY [...] Donovan Unavailable OLGA LIDIA Rubalcava Attending UnavailDO Monique Triplett Attending Unava ilable NO FAMILY, PHYSICIAN Primary Care Provider Unava ilable MD Huey Maharaj Jr Emergency Provider DR CORTNEY MARTINEZ Admitting Unavailable JUAN, DR CORTNEY Jeffries Consulting Unavailable JUAN, DR CORTNEY Jeffries Attending Unavailable MISC, DR BEE Primary Care Unavailable HINA, DR BROWNING Consulting Unavailable NARCISA CHEN Consulting Unavailable MISC, DR BEE Primary Care Unavailable NAYELY BARNHART Admitting Unavailable BRONWYN, NAYELY Consulting Unavailable BRONWYN, NAYELY Attending Unavailable OWEN [...] Care Provider UnavailMD Xander Haywood Emergency Provider Unavailev Velazquez MD, Duke Momin Primary Care Provider Xander Barone Attending Unavailable Provider, No Primary Care Unavailable BHURGRI, DUKE H Primary Care Unavailable CAROLYN CHRISTIANSEN Attending Unavailable CANDIDA JOHN Referring Unavailable BHURGRI, DUKE H Primary Care Unavailable BHURGRI, DUKE H Primary Care Unavailable NUNO ODONNELL Attending Unavailable CINDY PROCTOR Referring Unavailable BHURGRI, DUKE H Primary Care Unavailable NGOZI BELL Attending Unavailab le BHURGRI, DUKE H Referring Unavailable BHURGRI, DUKE H Primary Care Unavailable NONE, XXXX Primary Care Physician Unavailab Juanjo George Attending Unavailable Allergies Allergy Classification Reported Allergen(s) Allergy Type Date of Onset Reaction(s) Facility Cont[facility] Media (2 sources) Contrast media; Translations: [iv contrast] Substance Allergy 06-12-20 19 [facility] Haloperidol (1 source) Haloperidol Drug Allergy 10-17-19 [facility] Iothalamate (1 source) Iothalamate Drug Allergy 10-17-19 20 [facility] Levamisole (1 source) Levamisole Drug Allergy 06-12-20 19 [facility] NSAIDs (1 source) Ketorolac Drug Allergy 06-12-20 19 [facility] Opioid Agonists (1 source) fentaNYL Drug Allergy 06-12-20 19 [facility] Prochlorperazine (1 source) Prochlorperazine Drug Allergy 06-12-20 19 [facility] (2 sources) Contrast media; Translations: [contrast media (gadolinium-based)] Propensity to adverse reactions to drug (disorder) [facility] (2 sources) Metoclopramide; Translations: [Reglan] Drug Allergy [facility] (8 sources) NSAIDs; Translations: [NSAIDs] Propensity to adverse reactions to drug (disorder) Pharyngeal swelling (finding) [facility] (7 sources) Prochlorperazine; Translations: [Compazine] Drug Allergy 04-09-20 21 Rash [facility] (9 sources) Promethazine; Translations: [Phenergan] Drug Allergy 04-09-20 21 Feeling nervous (finding) [facility] Comment on above: Jitteriness (8 sources) fentaNYL; Translations: [FENTANYL] Drug Allergy 02-01-20 18 Hives, Itching (finding) [facility] Work Phone: (3 sources) Ketorolac Drug Allergy 10-19-19 17 Shortness Of Breath [facility] Work Phone: (3 sources) Metoclopramide Drug Allergy 10-19-19 17 Palpitations [facility] Work Phone: (9 sources) Prochlorperazine; Translations: [PROCHLORPERAZINE] Drug Allergy 01-13-20 19 Hives [facility] Work Phone: (3 sources) Promethazine Drug Allergy 10-19-19 17 Palpitations [facility] Work Phone: (3 sources) Iodides Propensity to adverse reactions to drug 11-08-19 19 Itching [facility] Work Phone: (4 sources) Contrast media Itching [facility] (7 sources) Ketorolac; Translations: [ketorolac] Drug Allergy 01-02-20 17 Swelling of Lip/Tongue/Thr oat [facility] (6 sources) Promethazine; Translations: [promethazine] Drug Allergy 09-15-19 22 Agitated, Shakiness [facility] (7 sources) Iodinated [facility]; Translations: [Iodinated Contrast Media] Allergy to substance 10-27-19 17 Hives, Other (See Comments) [facility] (6 sources) NSAIDS (Non-Steroidal Anti-Inflamma; Translations: [NSAIDS (Non-Steroidal Anti-Inflamma] Allergy to substance 09-15-19 22 Swelling of Lip/Tongue/Thr oat [facility] (1 source) Haloperidol Drug Allergy 12-03-19 22 [facility] (1 source) Iodine (And Iodine Containting Drugs) Drug allergy (disorder) 04-09-20 [facility] (2 sources) NSAIDs; Translations: [NSAIDS (NON-STEROIDAL ANTI-INFLAMMATORY DRUG)] Drug allergy (disorder) 04-09-20 21 [facility] (2 sources) Prochlorperazine Drug Allergy 03-16-20 [facility] (1 source) Iodine Compounds Allergy to substance 07-06-19 Loss of Appetite [facility] (3 sources) Haloperidol; Translations: [HALOPERIDOL] Drug Allergy 03-15-[address] [facility] (3 sources) Meperidine; Translations: [MEPERIDINE] Drug Allergy 01-13-[address] [facility] (2 sources) Non-steroidal anti-inflammatory agent Propensity to adverse reactions to drug 05-19-[address] [facility] (3 sources) Phenergan Plain; Translations: [PHENERGAN PLAIN] Propensity to adverse reactions to drug 01-02-[address] [facility] (1 source) Iodine and Iodide Containing Produc Drug allergy (disorder) 07-06-19 [facility] (2 sources) Contrast media; Translations: [Contrast Dye] Drug allergy Itching (finding) [facility] Medications Current Medications Medication Drug Class(es) Dates [...] than prescribed may cause serious breathing problems. [id number] 200 actuat albuterol 0.09 mg/actuat metered dose [...] tablet 0 06/12/2019 Active polyethylene glycol 3350 83802 mg powder for oral solution (2 sources) [...] 15, 2021 7:11pm June 08, 2021 1:35pm Zofran ODT 4 mg Tab-Dis (1 source) Start: 09-05-2023 take 1 tablet by mouth every six hours as needed for nausea Zofran ODT 4 mg Tab-Dis 4 mg = 1 tab(s), Oral, q6hr, PRN Nausea/Vomiting, # 12 tab(s), Refills(s) 0, Pharmacy: [facility]/pharmacy #[id number], 170.2, cm, 09/05/23 10:32:00 EDT, Height/Length Dosing, 146.3, kg, 09/05/23 10:32:00 EDT, Weight Dosing Start Date: 09/05/23 Status: Ordered Completed/Discontinued Medications Medication Drug Class(es) Dates Sig (Normalized) Sig (Original) acetaminophen 325 mg / HYDROcodone bitartrate 5 mg oral tablet (3 sources) Opioid Agonist Start: 09-14-2021 End: 12-15-2021 take 1 tablet by mouth every six hours Hydrocodone-Acetam inophen Discontinued 1 TAB PO Q6H 12 September 14, 2021 8:18pm December 15, 2021 [...] Start: 06-08-2021 take 1 tablet by rasheeda every six hours dicyclomine 20 mg oral [...] Start: 11-07-2018 take 1 capsule by mo [facility] every six hours as needed dicyclomine (BENTYL) [...] Start: 03-16-2021 take 1 tablet by rasheeda once daily Trazodone Active 1 TAB PO [...] Translations: [Dysmenorrhea, unspecified] Onset: 4 07-25-2023 Chronic Nausea and vomiting (15 sources) Nausea, vomiting and diarrhea; Translations: [Nausea and vomiting] Onset: 1 05-30-2021 Episodic Comment on above: NAUSEA VOMITING AND DIARRHEA VOMITING Other aftercare (1 source) Other [facility]ci (current) drug therapy; Translations: [OTH SHELTER CURRENT DRUG THERAPY] Onset: 2 Episodic Other aftercare (1 source) Admission statuses; Translations: [intermediate card tender (current) use of opiate analgesic] 07-25-2023 Episodic Other aftercare (1 source) [facility] (current) use of opiate analgesic; Translations: [[facility] (current) use of opiate analgesic] Onset: 4 Episodic Other gastrointestinal disorders (2 sources) Irritable bowel syndrome with diarrhea; Translations: [Irritable bowel syndrome with diarrhea] Onset: 1 11-29-2021 Chronic Other gastrointestinal disorders (1 source) History of Crohns disease; Translations: [Personal history of unspecified digestive disease] 05-30-2021 Episodic Other gastrointestinal disorders (4 sources) Diarrhea; Translations: [Diarrhea, unspecified] Onset: 4 06-08-2021 Episodic Other nervous system disorders (1 source) Other chronic pain; Translations: [Other chronic pain] Onset: 4 Chronic Other nutritional; endocrine; and metabolic disorders (2 sources) Obesity; Translations: [Obesity, unspecified] Onset: 2 12-26-2021 Chronic Other nutritional; endocrine; and metabolic disorders (1 source) Hypomagnesemia; Translations: [Hypomagnesemia] Onset: 4 Chronic Other screening for suspected conditions (not mental disorders or infectious disease) (3 sources) Thallium stress test abnormal; Translations: [Abnormal result of other cardiovascular function study] Onset: 2 12-27-2021 Episodic Peritonitis and intestinal abscess (1 source) Abdominal [...] abdominal pain] Onset: 2 Unclassified (1 source) Abdominal Pain; Vomiting Onset: 4 Unclassified (1 source) Polycystic Ovary Syndrome Onset: [...] Translations: [Unspecified hemorrhoids] Onset: 12-27-2021 12-27-2021 Episodic Nonspecific chest pain (2 sources) Chest pain; Translations: [Chest pain, unspecified] Onset: 12-27-2021 12-27-2021 Episodic Other gastrointestinal disorders (1 source) Diarrhea, unspecified; Translations: [DIARRHEA UNSPECIFIED] Onset: 04-12-2021 Episodic Residual codes; unclassified (2 sources) Family [...] Test Name Value Interpretation Reference Range Facility B hCG Qualon 09-05-2023 Beta HCG ( test) Ql Negative Normal [facility] Comment on above: Performed By: #### 2 370990, 4994302, 52029108, 7172907, 01748493, 02354785, 3313179 #### [facility] [address] [place] [address] BMPon 09-05-2023 Anion gap [Moles/Vol] 11 mmol/L Normal 6-16 [facility] Comment on above: Performed By: #### 2 060544, 0932405, 90620881, 2655526, 20451988, 33576499, 2733769 #### [facility] [address] [place] [address] Calcium [Mass/Vol] 9.1 mg/dL Normal 8.9-11.1 [facility] Comment on above: Performed By: #### 2 586694, 6497153, 69051996, 1155000, 97075565, 27503168, 3563355 #### [facility] [address] [place] [address] Chloride [Moles/Vol] 103 mmol/L Normal 101-111 [facility] Comment on above: Performed By: #### 2 099723, 1296466, 82905390, 4145608, 26356219, 82356070, 4533866 #### [facility] [address] [place] [address] CO2 [Moles/Vol] 26 mmol/L Normal 21-31 [facility] Comment on above: Performed By: #### 2 606072, 2133570, 61957594, 4356092, 15925853, 01092506, 2756090 #### [facility] [address] [place] [address] Creatinine [Mass/Vol] 0.8 mg/dL Normal 0.5-1.3 [facility] Comment on above: Performed By: #### 2 414701, 1617525, 27109409, 4287584, 10956580, 70652993, 0736254 #### [facility] [address] [place] [address] Glucose [Mass/Vol] 164 mg/dL Normal 55-199 [facility] Comment on above: Performed By: #### 2 038522, 3496344, 82822578, 8846340, 09507128, 65314071, 1361109 #### [facility] [address] [place] [address] Potassium [Moles/Vol] 3.8 mmol/L Normal 3.5-5.3 [facility] Comment on above: Performed By: #### 2 411070, 7810624, 55441545, 1479243, 86325167, 97381483, 9782066 #### [facility] [address] [place] [address] Sodium [Moles/Vol] 136 mmol/L Normal 135-145 [facility] Comment on above: Performed By: #### 2 456751, 9222404, 44596599, 2444070, 98568936, 42868501, 7330163 #### [facility] [address] [place] [address] Urea nitrogen [Mass/Vol] 14 mg/dL Normal 5-21 [facility] Comment on above: Performed By: #### 2 347270, 9012698, 69506060, 7933592, 55703649, 08513402, 8527518 #### [facility] [address] [place] [address] Urea nitrogen/Creatinine [Mass ratio] 18 No Units Normal 10-20 [facility] Comment on above: Performed By: #### 2 074471, 7883264, 84948347, 9873920, 05644551, 76250079, 8665646 #### [facility] [address] [place] [address] CBC w/ Auto Diffon 4 Basophils/100 WBC (Bld) 0.6 % Normal 0.0-2.0 [facility] Comment on above: Performed By: #### 2 815099, 6271074, 86606069, 3059453, 36739631, 11550236, 4711786 #### [facility] [address] [place] [address] Basophils/Leukocytes Auto (Bld) [Pure # fraction] 0.0 E9/L Normal 0.0-0.2 [facility] Comment on above: Performed By: #### 2 621555, 0348645, 71976405, 3116171, 45718400, 97310544, 1899274 #### [facility] [address] [place] [address] Eosinophils (Bld) [#/Vol] 0.1 E9/L Normal 0.0-0.5 [facility] Comment on above: Performed By: #### 2 216914, 7269561, 47241122, 3868378, 35946721, 16650722, 0794833 #### [facility] [address] [place] [address] Eosinophils/100 WBC (Bld) 1.8 % Normal 0.0-8.0 [facility] Comment on above: Performed By: #### 2 414544, 4641152, 23134385, 2888789, 13984036, 06438842, 3733063 #### [facility] [address] [place] [address] Erythrocyte distribution width (RBC) [Ratio] 14.6 % High 10.9-14.2 [facility] Comment on above: Performed By: #### 2 223285, 0752856, 42203245, 8716238, 72983627, 92614770, 2795315 #### [facility] [address] [place] [address] Hematocrit (Bld) [Volume fraction] 37.5 % Normal 34.0-46.0 [facility] Comment on above: Performed By: #### 2 815134, 9166804, 66564911, 7505335, 74864487, 58392333, 1505704 #### [facility] [address] [place] [address] Hemoglobin (Bld) [Mass/Vol] 12.2 g/dL Normal 12.0-16.0 [facility] Comment on above: Performed By: #### 2 015678, 8457548, 94240023, 8988996, 74299038, 42136787, 4844342 #### [facility] [address] [place] [address] Lymphocytes (Bld) [#/Vol] 1.5 E9/L Normal 1.0-4.0 [facility] Comment on above: Performed By: #### 2 226310, 7731071, 26964029, 5284326, 52298415, 60509896, 0425018 #### [facility] [address] [place] [address] Lymphocytes/100 WBC (Bld) 23.0 % Normal 14.0-50.0 [facility] Comment on above: Performed By: #### 2 760161, 7559192, 38080497, 4186626, 00209913, 24500706, 9964933 #### [facility] [address] [place] [address] MCH (RBC) [Entitic mass] 27.8 pg Normal 27.0-34.0 [facility] Comment on above: Performed By: #### 2 737858, 6007602, 66243170, 9282316, 90803753, 66253814, 9409522 #### [facility] [address] [place] [address] MCHC (RBC) [Mass/Vol] 32.5 g/dL Normal 31.4-36.0 [facility] Comment on above: Performed By: #### 2 389052, 9804042, 46213006, 7745411, 22717632, 51260388, 0547611 #### [facility] [address] [place] [address] MCV (RBC) [Entitic vol] 85.4 fL Normal 80.0-100.0 [facility] Comment on above: Performed By: #### 2 407267, 2440093, 44341342, 2538305, 00782351, 97427496, 1819086 #### [facility] [address] [place] [address] Monocytes (Bld) [#/Vol] 0.6 E9/L Normal 0.2-1.0 [facility] Comment on above: Performed By: #### 2 072927, 9793931, 46053324, 8319034, 03904603, 52789593, 0316671 #### [facility] [address] [place] [address] Neutrophils (Bld) [#/Vol] 4.4 E9/L Normal 2.0-7.5 [facility] Comment on above: Performed By: #### 2 608827, 2637938, 07475449, 8117164, 82441059, 78416319, 4607591 #### [facility] [address] [place] [address] Neutrophils/100 WBC (Bld) 65.2 % Normal 36.0-75.0 [facility] Comment on above: Performed By: #### 2 520808, 7653540, 34827968, 7356074, 83436002, 10699980, 4147035 #### [facility] [address] [place] [address] Platelet mean volume (Bld) [Entitic vol] 7.4 fL Normal 6.4-10.8 [facility] Comment on above: Performed By: #### 2 252928, 2543651, 01803104, 1823488, 25419122, 98757596, 0197040 #### [facility] [address] [place] [address] Platelets (Bld) [#/Vol] 240.0 E9/L Normal 150.0-500.0 [facility] Comment on above: Performed By: #### 2 546069, 4318781, 98814637, 4951839, 23500980, 56065015, 3519414 #### [facility] [address] [place] [address] RBC (Bld) [#/Vol] 4.4 E12/L Normal 4.3-5.9 [facility] Comment on above: Performed By: #### 2 253230, 1800088, 74244084, 5608565, 63093480, 17347134, 7893514 #### [facility] [address] [place] [address] WBC corrected for nucl RBC Auto (Bld) [#/Vol] 6.7 E9/L Normal 4.0-11.0 [facility] Comment on above: Performed By: #### 2 135473, 3591953, 66788927, 5830274, 16283155, 71893175, 2978708 #### [facility] [address] [place] [address] CHEMISTRYOrdered By: SYSTEM SYSTEM on 09-05-2023 Albumin [Mass/Vol] 3.7 g/dL Normal 3.3 - 5.0 gm/dL [facility] Albumin/Globulin [Mass ratio] 1.3 {ratio} Normal 1.1 - 2.2 [facility] ALP [Catalytic activity/Vol] 63 [iU]/d Normal 21 - 98 Int._Unit/L [facility] ALT No additional P-5'-P [Catalytic activity/Vol] 23 [iU]/d Normal 6 - 46 Int._Unit/L [facility] Anion gap [Moles/Vol] 11 mmol/L Normal 6 - 16 mEq/L R emisol Chem AST [Catalytic activity/Vol] 20 [iU]/d Normal 5 - 43 Int._Unit/L [facility] Bilirubin [Mass/Vol] 0.7 mg/dL Normal 0.0 - 1 .1 mg/dL [facility] Bilirubin.direct [Mass/Vol] 0.1 mg/dL Normal 0.0 - 0.4 mg/dL [facility] Bilirubin.indirect [Mass or moles/Vol] 0.6 mg/dL Normal 0.1 - 0.9 mg/dL [facility] Calcium [Mass/Vol] 9.1 mg/dL Normal 8.9 - 11. 1 mg/dL [facility] Chloride [Moles/Vol] 103 mmol/L Normal 101 - 1 11 mmol/L [facility] CO2 [Moles/Vol] 26 mmol/L Normal 21 - 31 mmol/L [facility] Creatinine [Mass/Vol] 0.8 mg/dL Normal 0.5 - 1.3 mg/dL [facility] eGFR 92 mL/min/1.73 m2 Normal >=59mL/min /1 .73 m2 [facility] Globulin (S) [Mass/Vol] 2.9 g/dL Normal 1.4 - 4.0 gm/dL [facility] Glucose [Mass/Vol] 164 mg/dL Normal 55 - 199 mg/dL [facility] Lipase [Catalytic activity/Vol] 23 U/L Normal 13 - 58 unit/L [facility] Potassium [Moles/Vol] 3.8 mmol/L Normal 3.5 - 5.3 mmol/L [facility] Protein [Mass/Vol] 6.6 g/dL Normal 6.0 - 7.8 gm/dL [facility] Sodium [Moles/Vol] 136 mmol/L Normal 135 - 145 mmol/L [facility] Urea nitrogen [Mass/Vol] 14 mg/dL Normal 5 - 21 mg/dL [facility] Urea nitrogen/Creatinine [Mass ratio] 18 mg/mg Normal 10 - 20 [facility] COAGULATIONOrdered By: Maegan Wright on 09-05-2023 aPTT Coag (PPP) [Time] 34.2 s Normal 25.1 - 36.5 second(s) [facility] Auto Coag Comment on above: Interpretive Data: Galo johns 15 days - 4 weeks 1 - 5 months 6 - 11 months 1 - 5 years 6 - 10 years 11 - 17 years PTT Mean: 35.4 (27.6-45.6) Mean: 33.5 (24.8-40.7) Mean: 32.4 (25.1-40.7) Mean: 31.6 (24.0-39.2) Mean: 31.6 (26.9-38.7) Mean: 31.0 (24.6-38.4) Pediatric Reference ranges were obtained from a study by miya Johnson al. prepared from 1437 samples obtained at 7 different centers using the same coagulation reagent and instrumentation as [facility]. Currently there are no coagulation studies available worldwide for children to 14 days, and no normal ranges. Heparin therapeutic range (represented by Anti-Factor Xa activity of 0.2 - 0.4 U/mL) corresponds to PTT of 56.6 - 109.0 sec. INR Coag (PPP) [Relative time] 1.00 {INR} Invalid Interpretation Code [facility] Auto Coag Comment on above: Interpretive Data: I NR results are specifically intended to assess patients stabilized on long-term Anticoagulation therapy suggested INR s Less Intensive Anticoagulation 2.0 3.0 Conventional Range 3.0 4.5 PT Coag (PPP) [Time] 11.2 s Normal 9.4 - 1 2.5 second(s) [facility] Auto Coag Comment on above: Interpretive Data: 1 5 days - 4 weeks 1 - 5 months 6 -11 months 1 5 years 6 10 years 11 -17 years Mean: 11.2 (9.5 12.6) Mean: 11.0 (9.7 12.8) Mean: 11.0 (9.8 13.0) Mean: 11.3 (9.9 13.4) Mean: 11.7 (10.0 14.6) Mean: 11.8 (10.0 - 14.1) Pediatric Reference ranges were obtained from a study by Blaze Goff et al. prepared from 1437 samples obtained at 7 different centers using the same coagulation reagent and instrumentation as [facility]. Currently there are no coagulation studies available worldwide for children to 14 days, and no normal ranges. Consent for Treatmenton 08-17 Consent for Treatment [id number] Normal [facility] Discharge Instructionson Discharge Instructions [id number] Normal [facility] ED Clinical Summaryon 2023 ED Clinical Summary [address] [address] ED Clinical Summary Person Information Name: NICKI OVIEDO Devika Miranda/[facility] Age: 48 Years : 1975 Sex: Female Language: Algerian PCP: NONE, XXXX Marital Status: Single Phone: Visit Id: Visit Reason: Vomiting; Diarrhea; Abdominal pain; ABD PAIN-BLOODY STOOLS Speciality: Acuity: 3 Enc Type: Emergency Med Service: Emergency Arrival: 09/05/2023 10:19:52 Discharge: 09/05/2023 13:49:41 LOS: 000 03:30 Checkin: 09/05/2023 10:19:52 Checkout: 09/05/2023 13:49:41 Dispo Type: Home (Routine DC) EVENTS: Event Name Event Status Request Date/Time Start Date/Time Complete Date/Time Arrive Complete 09/05/2023 10:19:52 09/05/2023 10:19:52 09/05/2023 10:19:52 Document Home Meds Request 09/05/2023 10:19:52 Triage Complete 09/05/2023 10:19:52 09/05/2023 10:32:26 09/05/2023 10:32:26 Bed Assign Complete 09/05/2023 10:27:21 09/05/2023 10:27:21 09/05/2023 10:27:21 Dr Exam Complete 09/05/2023 10:27:21 09/05/2023 10:38:04 09/05/2023 10:38:04 RN Exam Complete 09/05/2023 10:27:21 09/05/2023 10:42:01 09/05/2023 10:42:01 Registration Complete 09/05/2023 10:38:04 09/05/2023 11:04:24 09/05/2023 11:04:24 Pending Labs Complete 09/05/2023 10:45:01 09/05/2023 11:48:09 Meds Admin Complete 09/05/2023 10:51:49 09/05/2023 11:20:30 Pending Labs Complete 09/05/2023 10:51:49 09/05/2023 11:26:36 Lab Complete 09/05/2023 10:51:49 09/05/2023 11:20:52 Pending Labs Complete 09/05/2023 10:58:19 09/05/2023 10:58:19 09/05/2023 11:20:52 Lab Complete 09/05/2023 10:58:19 09/05/2023 10:58:19 09/05/2023 11:20:52 Reg Complete Request 09/05/2023 11:04:24 Reg Bed Request Complete 09/05/2023 11:04:24 09/05/2023 11:04:24 09/05/2023 11:04:24 Meds Admin Complete 09/05/2023 11:42:33 09/05/2023 11:46:15 Discharge Complete 09/05/2023 12:17:28 09/05/2023 13:49:46 09/05/2023 13:49:46 Transfer Complete 09/05/2023 13:49:46 09/05/2023 13:49:46 09/05/2023 13:49:46 ADDRESS: [address] [place] [id number] PHYS DOC NOTES: MEDICAL INFORMATION: Prescriptions Given: New Medications [facility]/pharmacy #[id number], [address] [place], [place] [id number], [phone] ondansetron (Zofran ODT 4 mg Tab-Dis) 1 Tablets By Mouth every 6 hours as needed Nausea/Vomiting. Refills: 0. PATIENT EDUCATION INFORMATION: Instructions: Bloody Diarrhea; Nausea and Vomiting, Adult Follow up: With: Address: When: Deidra Lala [address] [place], [place] [id number] In 3 days 09/08/2023 Comments: Make sure to follow-up with your GI as instructed. Return to the emergency room if your symptoms get worse, abdominal pain gets worse, fever or any new symptoms. DIAGNOSIS: 1:Abdominal pain; 2:Vomiting and diarrhea; Diarrhea, unspecified Normal [facility] ED Note-Physicianon 09-05-19 ED Note-Physician Basic Information Time Seen: Juanjo Espinoza M.D. 09/05/2023 10:38 Chief Complaint patient c/o RLQ abdominal pain with bloody diarrhea, nausea and vomiting that started yesterday. hx chrohns History of Present Illness The patient is a 48-year-old female past medical history of Crohn's disease who presented to the emergency room with abdominal pain vomiting and diarrhea. The patient states since last night she has been having pain on the right lower quadrant. She describes the pain as sharp. She reports vomiting. Denies any vomiting blood. She states the diarrhea has had some blood to it. She denies any fever, denies any chills. The patient denies any burning with urination. She denies any bad food. Denies any recent traveling. She states she is from [place] and she is at her cousins visiting. The patient states this feels like her Crohn's is acting up. 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 She has had her gallbladder removed. The patient states she is on Humira for her Crohn's disease. The patient denies any other associated symptoms. Review of Systems Additional ROS info: Except as noted in the above Review of Systems and in the History of Present Illness all other systems have been reviewed and are negative or noncontributory. Physical Exam Vitals & Measurements T: 36.8 ?C(Oral) HR: 83(Monitored) RR: 18 BP: 127/85 SpO2: 99% HT: 170.18 cm WT: 146.3 kg BMI: 50.52 General: alert, no acute distress Skin: warm, dry, Head: no trauma, normocephalic Neck: Trachea midline, Eye: normal conjunctiva, sclera clear ENMT: Oral mucosa moist, no pharyngeal erythema or exudate Cardiovascular: regular rate and rhythm, Respiratory: Lungs CTA, respirations non labored, breath sounds equal, Gastrointestinal: soft, non distended, mild generalized tenderness more on the right lower quadrant, no guarding, Extremities: no deformity, no trauma, Neurological: Alert and oriented, speech normal, no focal neuro deficits Psychiatric: cooperative, affect appropriate for age, Medical Decision Making MEDICAL DECISION MAKING Number and Complexity of Problems Differential Diagnosis: [] [facility] Data External documents reviewed: [] My EKG interpretation: [] My CT interpretation: [] My X-ray interpretation: [] My Ultrasound interpretation: [] Decision rules/scores evaluated: [] Discussed with: [] Treatment and Disposition ED Course: The patient presented with abdominal pain vomiting and diarrhea. Her abdomen is soft. There is mild generalized tenderness more on the right lower quadrant. The patient has no appendix. 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 There is no rebound tenderness. Patient is afebrile. Blood work reviewed white count is normal. The rest of blood work is unremarkable. Unclear etiology of her symptoms. Possible viral gastroenteritis. Possible exacerbation of her Crohn's disease. The patient was given IV fluid morphine and antiemetic and her pain improved. She was given 1 dose of Solu-Medrol. In concern for rise on her blood glucose we cannot give patient steroids to go home. She will contact her GI. The patient was instructed to return to the emergency room if her pain gets worse or any new symptoms. Shared decision making: [] Code status: [] Assessment/Plan 1. Abdominal pain (R10.9: Unspecified abdominal pain) 2. Vomiting and diarrhea (R11.10: Vomiting, unspecified) Diarrhea, unspecified (R19.7: Diarrhea, unspecified) Orders: dicyclomine, 20 mg = 2 mL, Injection, IntraMuscular, Once, Stop date 09/05/23 10:51:00 EDT, STAT, Start date 09/05/23 10:51:00 EDT, 09/05/23 10:51:00 EDT diphenhydrAMINE, 25 mg = 0.5 mL, Injection, IV Push, Once, Stop date 09/05/23 11:51:00 EDT, Start date 09/05/23 11:51:00 EDT famotidine, 20 mg = 2 mL, Soln-IV, IV Push, Once, Stop date 09/05/23 10:51:00 EDT, STAT, Start date 09/05/23 10:51:00 EDT, 09/05/23 10:51:00 EDT methylPREDNISolone, 125 mg = 2 mL, Injection, IV Push, Once, Stop date 09/05/23 10:51:00 EDT, STAT, Start date 09/05/23 10:51:00 EDT, 09/05/23 10:51:00 EDT morphine, 4 mg = 1 mL, Injection, IV Push, Once, Stop date 09/05/23 11:42:00 EDT, STAT, Start date 09/05/23 11:42:00 EDT, 09/05/23 11:42:00 EDT ondansetron, 4 mg = 2 mL, Injection, IV Push, Once, Stop date 09/05/23 10:51:00 EDT, STAT, Start date 09/05/23 10:51:00 EDT, 09/05/23 10:51:00 EDT ondansetron, 4 mg = 1 tab(s), Oral, q6hr, PRN Nausea/Vomiting, # 12 tab(s), Refills(s) 0, Pharmacy: [facility]/pharmacy #[id number], 170.2, cm, 09/05/23 10:32:00 EDT, Height/Length Dosing, 146.3, kg, 09/05/23 10:32:00 EDT, Weight Dosing Sodium Chloride 0.9% intravenous solution, 1,000 mL, Soln-IV, IV, Once, Stop date 09/05/23 10:51:00 EDT, STAT, Start date 09/05/23 10:51:00 EDT, Infuse over 61, minute(s) Basic Metabolic Panel Beta hCG Qual CBC w/ Auto Diff eGFR Hepatic Function Panel Lipase Level PT & PTT UA with Cult Rflx Medications Administered (more content not included)... Normal [facility] Comment on above: Result Comment: Elec tronically Signed By: Alexis Nash, Juanjo Momin\.br\Date and Time Signed: 09/05/23 17:26 EDT ED Patient Education Noteon 09-05-2023 ED Patient Education Note Gastroenterology Nausea and Vomiting, Adult Nausea is the feeling that you have an upset stomach or that you are about to vomit. As nausea gets worse, it can lead to vomiting. Vomiting is when stomach contents forcefully come out of your mouth as a result of nausea. Vomiting can make you feel weak and cause you to become dehydrated. Dehydration can make you feel tired and thirsty, cause you to have a dry mouth, and decrease how often you urinate. Older adults and people with other diseases or a weak disease-fighting system (immune system) are at higher risk for dehydration. It is important to treat your nausea and vomiting as told by your health care provider. Follow these instructions at home: Watch your symptoms for any changes. Tell your health care provider about them. Eating and drinking ? Take an oral rehydration solution (ORS). This is a drink that is sold at pharmacies and retail stores. ? Drink clear fluids slowly and in small amounts as you are able. Clear fluids include water, ice chips, low-calorie sports drinks, and fruit juice that has water added (diluted fruit juice). ? Eat bland, cuie-qy-sqoljw foods in small amounts as you are able. These foods include bananas, applesauce, rice, lean meats, toast, and crackers. ? Avoid fluids that contain a lot of sugar or caffeine, such as energy drinks, sports drinks, and soda. ? Avoid alcohol. ? Avoid spicy or fatty foods. General instructions ? Take zszf-cnm-bzylofc and prescription medicines only as told by your health care provider. ? Drink enough fluid to keep your urine pale yellow. ? Wash your hands often using soap and water for at least 20 seconds. If soap and water are not available, use hand cascade operator. ? Make sure that everyone in your household washes their hands well and often. ? Rest at home while you recover. ? Watch your condition for any changes. ? Take slow and deep breaths when you feel nauseous. ? Keep all follow-up visits. This is important. Contact a health care provider if: ? Your symptoms get worse. ? You have new symptoms. ? You have a fever. ? You cannot drink fluids without vomiting. ? Your nausea does not go away after 2 days. ? You feel light-headed or dizzy. ? You have a headache. ? You have muscle cramps. ? You have a rash. ? You have pain while urinating. Get help right away if: ? You have pain in your chest, neck, arm, or jaw. ? You feel extremely weak or you faint. ? You have persistent vomiting. ? You have vomit that is bright red or looks like black coffee grounds. ? You have bloody or black stools (feces) or stools that look like tar. ? You have a severe headache, a stiff neck, or both. ? You have severe pain, cramping, or bloating in your abdomen. ? You have difficulty breathing, or you are breathing very quickly. ? Your heart is beating very quickly. ? Your skin feels cold and clammy. ? You feel confused. ? You have signs of dehydration, such as: ? Dark urine, very little urine, or no urine. ? Cracked lips. ? Dry mouth. ? Sunken eyes. ? Sleepiness. ? Weakness. These symptoms may be an emergency. Get help right away. Call 911. ? Do not wait to see if the symptoms will go away. ? Do not drive yourself to the hospital. Summary ? Nausea is the feeling that you have an upset stomach or that you are about to vomit. As nausea gets worse, it can lead to vomiting. Vomiting can make you feel weak and cause you to become dehydrated. ? Follow instructions from your health care provider about eating and drinking to prevent dehydration. ? Take xhae-vvk-znqiaty and prescription medicines only as told by your health care provider. ? Contact your health care provider if your symptoms get worse, or you have new symptoms. ? Keep all follow-up visits. This is important. This information is not intended to replace advice given to you by your health care provider. Make sure you discuss any questions you have with your health care provider. Document Revised: 12/09/2021 Document Reviewed: 12/09/2021 [employer] Patient Education ? 2022 [employer]. Infectious Disease Bloody Diarrhea Bloody diarrhea is frequent loose and watery bowel movements that contain blood. The blood can be hard to see or notice (occult). Bloody diarrhea may be caused by medical conditions such as: ? Ulcerative colitis. ? Crohn's disease. ? Intestinal infection. ? Viral gastroenteritis or bacterial gastroenteritis. Finding out why there is blood in your diarrhea is necessary so that your health care provider can prescribe the right treatment for you. Follow the instructions from your health care provider about treating the cause of your bloody diarrhea. Any type of diarrhea can make you feel weak and dehydrated. Dehydration can make you tired and thirsty, cause you to have a dry mouth, and decrease how often you urinate. Follow these instructions at home (more content not included)... Normal [facility] ED Patient Summaryon 024 ED Patient Summary [address] [address] Patient Discharge Instructions Person Information Name: NICKI OVIEDO Age: 48 Years Arrival Date: 09/05/2023 10:19:52 Discharge Diagnosis: 1:Abdominal pain; 2:Vomiting and diarrhea; Diarrhea, unspecified Primary Care Physician: NONE, XXXX Provider Information Primary Provider: Jaunjo Espinoza M.D. Advanced Surface Grinder Tender:None The exam and treatment you received in the Emergency Department were for an urgent problem and are not intended as complete care. It is important that you follow up with a doctor, nurse practitioner, or physician?s commercial escrow assistant for ongoing care. If your symptoms become worse or you do not improve as expected and you are unable to reach your usual health care provider, you should return to the Emergency Department. We are available 24 hours a day. NICKI OVIEDO has been given the following list of patient education materials, prescriptions and follow-up instructions: Follow-up Instructions: With: Address: When: Deidra Lala [address] [place], [place] [id number] In 3 days 09/08/2023 Comments: Make sure to follow-up with your GI as instructed. Return to the emergency room if your symptoms get worse, abdominal pain gets worse, fever or any new symptoms. In the event that this physician does not participate in your insurance network, please consult with your insurance company to find a nearby participating provider. Patient Education Materials: Bloody Diarrhea; Nausea and Vomiting, Adult A MESSAGE TO ALL PATIENTS REGARDING OPIOIDS PRESCRIPTION OPIOIDS: WHAT YOU NEED TO KNOW Prescription opioids can be used to help relieve mpixxmss-fm-qowige pain and are often prescribed following a surgery or injury, or for certain health conditions. These medications can be an important part of the treatment but also come with serious risks. It is important to work with your healthcare provider to make sure you are getting the safest, most effective care. WHAT ARE THE RISKS AND SIDE EFFECTS OF OPIOID USE? Prescription opioids carry serious risks of addiction and overdose, especially with prolonged use. An opioid overdose, often marked by slowed breathing, can cause sudden . The use of prescription opioids can have a number of side effects as well, even when taken as directed: ? Tolerance?meaning you might need to take more of the medication for the same pain relief ? Physical dependence?meaning you have symptoms of withdrawal when a medication is stopped ? Increased sensitivity to pain ? Constipation ? Nausea, vomiting, and dry mouth ? Sleepiness and dizziness ? Confusion ? Depression ? Low levels of testosterone that can result in lower sex drive, energy, and strength ? Itching and sweating RISKS ARE GREATER WITH: ? History of drug misuse, substance use disorder, or overdose ? Mental health conditions (such as depression or anxiety) ? Sleep apnea ? Older age (65 years and older) ? Avoid alcohol while taking prescription opioids. Also, unless specifically advised by your health care provider, medications to avoid include: ? Benzodiazepines (such as Xanax or Valium) ? Muscle relaxants (such as Soma or Flexeril) ? Hypnotics (such as Ambien or Lunesta) ? Other prescription opioids KNOW YOUR OPTIONS Talk to your health care provider about ways to manage your pain that don?t involve prescription opioids. Some of these options may actually work better and have fewer risks and side effects. Options may include: ? Pain relievers such as acetaminophen, ibuprofen, and naproxen ? Some medication that are also used for depression or seizures ? Physical therapy and exercise ? Cognitive behavioral therapy, a psychological, goal-directed approach, in which patients learn how to modify physical, behavioral, and emotional triggers of pain and stress. IF YOU ARE PRESCRIBED OPIOIDS FOR PAIN: ? Never take opioids in greater amounts or more often than prescribed. ? Follow up with your primary health care provider. o Work together to create a plan on how to manage your pain. o Talk about ways to help manage your pain that don?t involve prescription opioids. o Talk about any and all concerns and side effects. ? Help prevent misuse and abuse o Never sell or share prescription opioids. o Never use another person?s prescription opioids. ? Store prescription opioids in a secure place and out of reach of others (this may include visitors, children, friends, and family). ? Safely dispose of unused prescription opioids: Find your community drug take-back program or your pharmacy mail-back program, or flush them down the toilet, following guidance from the Food and Drug Administration (www.fda.gov/Drugs/Re sourcesForYou). ? Visit www.cdc.gov/drugoverd ose to learn about the risks of opioids abuse and overdose (more content not included)... Normal [facility] HEMATOLOGYOrdered By: SYSTEM SYSTEM on 09-05-2023 Basophils/100 WBC (Bld) 0.6 % Normal 0.0 - 2.0 % Remisol Heme Basophils/Leukocytes Auto (Bld) [Pure # fraction] 0.0 E9/L Normal 0.0 - 0.2 E9/L Remisol Heme Eosinophils (Bld) [#/Vol] 0.1 E9/L Normal 0.0 - 0.5 E9/L Remisol Heme Eosinophils/100 WBC (Bld) 1.8 % Normal 0.0 - 8.0 % Remisol Heme Erythrocyte distribution width (RBC) [Ratio] 14.6 % High 10.9 - 14.2 % Remisol Heme Hematocrit (Bld) [Volume fraction] 37.5 % Normal 34.0 - 46.0 % Remisol Heme Hemoglobin (Bld) [Mass/Vol] 12.2 g/dL Normal 12.0 - 16.0 gm/dL Remisol Heme Lymphocytes (Bld) [#/Vol] 1.5 E9/L Normal 1.0 - 4.0 E9/L Remisol Heme Lymphocytes/100 WBC (Bld) 23.0 % Normal 14.0 - 50.0 % Remisol Heme MCH (RBC) [Entitic mass] 27.8 pg Normal 27.0 - 34.0 pg Remisol Heme MCHC (RBC) [Mass/Vol] 32.5 g/dL Normal 31.4 - 36.0 gm/dL Remisol Heme MCV (RBC) [Entitic vol] 85.4 fL Normal 80.0 - 100.0 fL Remisol Heme Monocytes (Bld) [#/Vol] 0.6 E9/L Normal 0.2 - 1.0 E9/L Remisol Heme Monocytes/100 WBC (Bld) 9.4 % Normal 4.0 - 14.0 % Remisol Heme Neutrophils (Bld) [#/Vol] 4.4 E9/L Normal 2.0 - 7.5 E9/L Remisol Heme Neutrophils/100 WBC (Bld) 65.2 % Normal 36.0 - 75.0 % Remisol Heme Platelet mean volume (Bld) [Entitic vol] 7.4 fL Normal 6.4 - 10.8 fL Remisol Heme Platelets (Bld) [#/Vol] 240.0 E9/L Normal 150. 0 - 500.0 E9/L Remisol Heme RBC (Bld) [#/Vol] 4.4 E12/L Normal 4.3 - 5.9 E12/L Remisol Heme WBC corrected for nucl RBC Auto (Bld) [#/Vol] 6.7 E9/L Normal 4.0 - 11.0 E9/L Remisol Heme Hep Func Panelon 09-05-2023 Albumin [Mass/Vol] 3.7 g/dL Normal 3.3-5.0 [facility] Comment on above: Performed By: #### 2 [id number], 1345907, [id number], 6069632, 12739993, 95115572, 4561345 #### [facility] [address] [place] [address] Albumin/Globulin (S) [Mass conc ratio] 1.3 Normal 1.1-2.2 [facility] Comment on above: Performed By: #### 2 799389, 8539075, 95779485, 0374345, 52591530, 56885473, 3382328 #### [facility] [address] [place] [address] ALP [Catalytic activity/Vol] 63 Int._Unit/L Normal 21-98 [facility] Comment on above: Performed By: #### 2 057800, 6761770, 99484898, 7588787, 17316168, 54215737, 1543938 #### [facility] [address] [place] [address] ALT No additional P-5'-P [Catalytic activity/Vol] 23 Int._Unit/L Normal 6-46 [facility] Comment on above: Performed By: #### 2 566340, 3013934, 90286897, 7665757, 13947016, 51212792, 2738330 #### [facility] [address] [place] [address] AST [Catalytic activity/Vol] 20 Int._Unit/L Normal 5-43 [facility] Comment on above: Performed By: #### 2 215265, 2892809, 02333405, 1277521, 12676923, 25186237, 6436742 #### [facility] [address] [place] [address] Bilirubin [Mass/Vol] 0.7 mg/dL Normal 0.0-1.1 [facility] Comment on above: Performed By: #### 2 090194, 2294676, 28671690, 1763502, 60179435, 28463745, 0124772 #### [facility] [address] [place] [address] Bilirubin.direct [Mass/Vol] 0.1 mg/dL Normal 0.0-0.4 [facility] Comment on above: Performed By: #### 2 098660, 6779627, 19512295, 5135363, 88621616, 06697799, 5775834 #### [facility] [address] [place] [address] Bilirubin.indirect [Mass or moles/Vol] 0.6 mg/dL Normal 0.1-0.9 [facility] Comment on above: Performed By: #### 2 844727, 8782637, 11187144, 7955708, 33005906, 33327024, 5021313 #### [facility] [address] [place] [address] Globulin (S) [Mass/Vol] 2.9 g/dL Normal 1.4-4.0 F [facility] Comment on above: Performed By: #### 2 377843, 0054084, 60238110, 4439158, 30492554, 85101827, 0836663 #### [facility] [address] [place] [address] Protein [Mass/Vol] 6.6 g/dL Normal 6.0-7.8 [facility] Comment on above: Performed By: #### 2 018306, 5045294, 42811397, 3051927, 05392351, 34415727, 8050188 #### [facility] [address] [place] [address] Lipase Levelon 09-05-2023 Lipase [Catalytic activity/Vol] 23 U/L Normal 13-58 [facility] Comment on above: Performed By: #### 2 590521, 3058375, 54157134, 2775835, 57018324, 25700317, 9538704 #### [facility] [address] [place] [address] PT & PTTon 09-05-2023 aPTT Coag (PPP) [Time] 34.2 second(s) Normal 25.1-36.5 [facility] Comment on above: Result Comment: Para meter 15 days - 4 weeks 1 - 5 months 6 - 11 months 1 - 5 years 6 - 10 years 11 - 17 years PTT Mean: 35.4 (27.6-45.6) Mean: 33.5 (24.8-40.7) Mean: 32.4 (25.1-40.7) Mean: 31.6 (24.0-39.2) Mean: 31.6 (26.9-38.7) Mean: 31.0 (24.6-38.4) Pediatric Reference ranges were obtained from a study by Blaze Goff et al. prepared from 1437 samples obtained at 7 different centers using the same coagulation reagent and instrumentation as [facility]. Currently there are no coagulation studies available worldwide for children to 14 days, and no normal ranges. Heparin therapeutic range (represented by Anti-Factor Xa activity of 0.2 - 0.4 U/mL) corresponds to PTT of 56.6 - 109.0 sec. Performed By: #### 2 010411, 0450746, 36968199, 2226978, 92719177, 06759854, 8556857 #### [facility] [address] [place] [address] INR Coag (PPP) [Relative time] 1.00 {INR} Invalid Interpretation Code [facility] Comment on above: Result Comment: INR results are specifically intended to assess patients stabilized on long-term Anticoagulation therapy suggested INR?s ?Less Intensive Anticoagulation? 2.0 ? 3.0 Conventional Range 3.0 ? 4.5 Performed By: #### 2 552393, 4319434, 85275292, 9510427, 09356698, 55037619, 1551891 #### [facility] [address] [place] [address] PT Coag (PPP) [Time] 11.2 second(s) Normal 9.4-12.5 [facility] Comment on above: Result Comment: 15 d ays - 4 weeks 1 - 5 months 6 -11 months 1 ? 5 years 6 ? 10 years 11 -17 years Mean: 11.2 (9.5 ? 12.6) Mean: 11.0 (9.7 ? 12.8) Mean: 11.0 (9.8 ? 13.0) Mean: 11.3 (9.9 ? 13.4) Mean: 11.7 (10.0 ? 14.6) Mean: 11.8 (10.0 - 14.1) Pediatric Reference ranges were obtained from a study by Blaze Goff et al. prepared from 1437 samples obtained at 7 different centers using the same coagulation reagent and instrumentation as [facility]. Currently there are no coagulation studies available worldwide for children to 14 days, and no normal ranges. Performed By: #### 2 071375, 7037666, 40115709, 5254043, 72272084, 53342367, 2664756 #### [facility] [address] [place] [address] SEROLOGYOrdered By: Cindy Wright on 09-05-2023 Beta HCG ( test) Ql Negative (09/05/23 10:45 AM) Normal [facility] Man Sero UA with Cult Rflxon 09-05-19 Color (U) Light-Yellow Normal Yellow [facility] Comment on above: Result Comment: Micr oscopic readings are only performed on those samples that meet specific criteria set forth by [facility]. Performed By: #### 4 [id number] #### [facility] [address] [place] [address] Glucose (U) [Mass/Vol] Negative Normal Negative [facility] Comment on above: Performed By: #### 4 [id number] #### [facility] [address] [place] [address] Ketones Ql (U) Negative Normal Negative [facility] Comment on above: Performed By: #### 4 [id number] #### [facility] [address] [place] [address] UA Blood 3+ Abnormal Negative [facility] Comment on above: Performed By: #### 4 [id number] #### [facility] [address] [place] [address] UA Clarity Clear Normal Clear [facility] Comment on above: Performed By: #### 4 [id number] #### [facility] [address] [place] [address] UA Leuk Est Negative Normal Negative [facility] Comment on above: Performed By: #### 4 [id number] #### [facility] [address] [place] [address] UA Mucous Negative Normal Negative [facility] Comment on above: Performed By: #### 4 [id number] #### [facility] [address] [place] [address] UA Nitrite Negative Normal Negative [facility] Comment on above: Performed By: #### 4 [id number] #### [facility] [address] [place] [address] UA pH 7.0 Invalid Interpretation Code 5.0-9.0 [facility] Comment on above: Performed By: #### 4 [id number] #### [facility] [address] [place] [address] UA Protein Negative Normal Negative [facility] Comment on above: Performed By: #### 4 [id number] #### [facility] [address] [place] [address] UA RBC >75 Abnormal 0-3 [facility] Comment on above: Performed By: #### 4 [id number] #### [facility] [address] [place] [address] UA Spec Grav 1.023 Invalid Interpretation Code 1.005-1.030 [facility] Comment on above: Performed By: #### 4 [id number] #### [facility] [address] [place] [address] UA Squam Epithelial 3-4 Abnormal 0-2 [facility] Comment on above: Performed By: #### 4 [id number] #### [facility] [address] [place] [address] UA Urobilinogen Negative Normal Negative [facility] Comment on above: Performed By: #### 4 [id number] #### [facility] [address] [place] [address] UA WBC 0-5 Normal 0-5 [facility] Comment on above: Performed By: #### 4 [id number] #### [facility] [address] [place] [address] Urobilinogen (U) [Mass/Vol] Negative Normal Negative [facility] Comment on above: Performed By: #### 4 [id number] #### [facility] [address] [place] [address] UA Spec Desc Clean Catch Normal [facility] Comment on above: Performed By: #### 4 [id number] #### [facility] [address] [place] [address] URINALYSISOrdered By: SYSTEM SYSTEM on 09-05-2023 Color (U) Light-Yellow 1 (09/05/23 10:48 AM) Normal Yellow [facility] UA Auto SS Comment on above: Interpretive Data: M icroscopic readings are only performed on those samples that meet specific criteria set forth by [facility]. Glucose (U) [Mass/Vol] Negative Normal Negat ivemg/d L [facility] UA Auto SS Ketones Ql (U) Negative Normal Negativemg/d L [facility] UA Auto SS UA Blood 3+ *ABN* (09/05/23 10:48 AM) Invalid Interpretation Code Negative [facility] UA Auto SS UA Clarity Clear (09/05/23 10:48 AM) Normal Clear [facility] UA Auto SS UA Leuk Est Negative Normal NegativeLeu/ uL [facility] UA Auto SS UA Mucous Negative Normal Negativegrad ed/LPF [facility] UA Auto SS UA Nitrite Negative Normal Negativemg/d L [facility] UA Auto SS UA pH 7.0 *NA* (09/05/23 10:48 AM) Invalid Interpretation Code 5.0 - 9.0 [facility] UA Auto SS UA Protein Negative Normal Negativemg/d L [facility] UA Auto SS UA RBC >75 graded/HPF Invalid Interpretation Code 0-3graded/HP F [facility] UA Auto SS UA Spec Grav 1.023 *NA* (09/05/23 10:48 AM) Invalid Interpretation Code 1.005 - 1.030 [facility] UA Auto SS UA Squam Epithelial 3-4 graded/HPF Invalid Interpretation Code 0-2graded/HP F [facility] UA Auto SS UA Urobilinogen Negative Normal Negativemg/d L [facility] UA Auto SS UA WBC 0-5 graded/HPF Normal 0-5graded/HP F [facility] UA Auto SS Urobilinogen (U) [Mass/Vol] Negative Normal Negativemg/d L [facility] UA Auto SS URINALYSISOrdered By: Bertha Linda on 09-05-2023 UA Spec Desc Clean Catch (09/05/23 10:48 AM) Normal FT UA Auto SS eGFRon 09-05-2023 eGFR 92 mL/min/1.73 m2 Normal >=59 [facility] Comment on above: Order Comment: Order added by Discern Expert. Performed By: #### 2 [id number], [id number], [id number], [id number], [id number], [id number], [id number] #### [facility] [address] [place] [address] CBC AND AUTO DIFFon 09-02-19 ABSOLUTE BASOPHIL 0.0 X10E9/L Normal 0.0-0.2 [facility] Comment on above: Performed By: #### C CHARMAINE CMP, 3039-08, 28700-3 #### [facility] ([id number]) [address] [place] [address] ABSOLUTE NEUTROPHIL 4.8 X10E9/L Normal 1.5-6.6 [facility] Comment on above: Performed By: #### C BCA, CMP, 3039-08, #### [facility] ([id number]) [address] [place] [address] Basophils/100 WBC (Bld) 0.6 % Normal [facility] Comment on above: Performed By: #### C BCA, CMP, 3039-08, #### [facility] ([id number]) [address] [place] [address] Eosinophils (Bld) [#/Vol] 0.1 10*3/uL Normal 0.0-0.4 [facility] Comment on above: Performed By: #### C BCA, CMP, 0-3, #### [facility] ([id number]) [address] [place] [address] Eosinophils/100 WBC (Bld) 1.9 % Normal [facility] Comment on above: Performed By: #### C BCA, CMP, 3, #### [facility] ([id number]) [address] [place] [address] Erythrocyte distribution width (RBC) [Ratio] 14.7 % Normal 11.5-15.0 [facility] Comment on above: Performed By: #### C BCA, CMP, 3, #### [facility] ([id number]) [address] [place] [address] Hematocrit (Bld) [Volume fraction] 38.8 % Normal 35-47 [facility] Comment on above: Performed By: #### C BCA, CMP, 3, #### [facility] ([id number]) [address] [place] [address] Hemoglobin (Bld) [Mass/Vol] 12.7 g/dL Normal 11.7-15.5 [facility] Comment on above: Performed By: #### C BCA, CMP, 3, #### [facility] ([id number]) [address] [place] [address] Lymphocytes (Bld) [#/Vol] 1.7 10*3/uL Normal 1.0-3.5 [facility] Comment on above: Performed By: #### C BCA, CMP, 3, #### [facility] ([id number]) [address] [place] [address] Lymphocytes/100 WBC (Bld) 22.7 % Normal [facility] Comment on above: Performed By: #### C BCA, CMP, 3, #### [facility] ([id number]) [address] [place] [address] MCH (RBC) [Entitic mass] 27.7 pg Normal 27-34 [facility] Comment on above: Performed By: #### C CHARMAINE, CMP, 3039-08, #### [facility] ([id number]) [address] [place] [address] MCHC (RBC) [Mass/Vol] 32.7 g/dL Normal 32-36 [facility] Comment on above: Performed By: #### C BCA, CMP, 3039-08, #### [facility] ([id number]) [address] [place] [address] MCV (RBC) [Entitic vol] 85 fL Normal 80-100 [facility] Comment on above: Performed By: #### C BCA, CMP, 3039-08, #### [facility] ([id number]) [address] [place] [address] Monocytes (Bld) [#/Vol] 0.7 10*3/uL Normal 0-0.9 [facility] Comment on above: Performed By: #### C BCA, CMP, 3039-08, #### [facility] ([id number]) [address] [place] [address] Monocytes/100 WBC (Bld) 9.8 % Normal [facility] Comment on above: Performed By: #### C BCA, CMP, 3039-08, #### [facility] ([id number]) [address] [place] [address] Neutrophils/100 WBC (Bld) 65.0 % Normal [facility] Comment on above: Performed By: #### C CHARMAINE, CMP, 3, #### [facility] ([id number]) [address] [place] [address] Platelet mean volume (Bld) [Entitic vol] 7.5 fL Normal 7-12 [facility] Comment on above: Performed By: #### C CHARMAINE, CMP, 3039-08, #### [facility] ([id number]) [address] [place] [address] Platelets (Bld) [#/Vol] 285 10*3/uL Normal 150-450 [facility] Comment on above: Performed By: #### C CHARMAINE, CMP, 3039-08, #### [facility] ([id number]) [address] [place] [address] RBC COUNT 4.59 X10E12/L Normal 3.80-5.20 [facility] Comment on above: Performed By: #### C CHARMAINE, CMP, 3039-08, #### [facility] ([id number]) [address] [place] [address] WBC (Bld) [#/Vol] 7.4 10*3/uL Normal 4.0-11.0 [facility] Comment on above: Performed By: #### C BCA, CMP, 3039-08, #### [facility] ([id number]) [address] [place] [address] COMPREHENSIVE METABOLIC PANE Johan 09-02-2023 Albumin [Mass/Vol] 3.8 g/dL Normal 3.2-5.3 [facility] Comment on above: Performed By: #### C BCA, CMP, 3, #### [facility] ([id number]) [address] [place] [address] ALP [Catalytic activity/Vol] 69 U/L Normal 39-130 [facility] Comment on above: Performed By: #### C BCA, CMP, 3, #### [facility] ([id number]) [address] [place] [address] ALT [Catalytic activity/Vol] 23 U/L Normal 0-31 [facility] Comment on above: Performed By: #### C BCA, CMP, 3039-08, #### [facility] ([id number]) [address] [place] [address] Anion gap [Moles/Vol] 4 mmol/L Low 5-15 [facility] Comment on above: Performed By: #### C BCA, CMP, 3039-08, #### [facility] ([id number]) [address] [place] [address] AST [Catalytic activity/Vol] 15 U/L Normal 0-41 [facility] Comment on above: Performed By: #### C BCA, CMP, 3039-08, #### [facility] ([id number]) [address] [place] [address] Bilirubin [Mass/Vol] 0.5 mg/dL Normal 0.3-1.2 [facility] Comment on above: Performed By: #### C BCA, CMP, 3039-08, #### [facility] ([id number]) [address] [place] [address] Calcium [Mass/Vol] 9.2 mg/dL Normal 8.5-10.5 [facility] Comment on above: Performed By: #### C BCA, CMP, 3, #### [facility] ([id number]) [address] [place] [address] Chloride [Moles/Vol] 99 mmol/L Normal 98-109 [facility] Comment on above: Performed By: #### C MAHENDRA MONTANO, 3039-08, #### [facility] ([id number]) [address] [place] [address] CO2 [Moles/Vol] 33 mmol/L High 22-32 [facility] Comment on above: Performed By: #### C MAHENDRA MONTANO, 3039-08, #### [facility] ([id number]) [address] [place] [address] Creatinine [Mass/Vol] 0.76 mg/dL Normal 0.40-1.00 [facility] Comment on above: Result Comment: METH OD TRACEABLE TO IDMS STANDARD Performed By: #### C MAHENDRA MONTANO, 3039-08, #### [facility] ([id number]) [address] [place] [address] eGFR (CKD-EPI) NON-RACE DEPENDENT >90 Normal >59 [facility] Comment on above: Result Comment: Reported eGFR is based on the CKD-EPI 2020 equation that does not use a race coefficient. Performed By: #### C MAHENDRA MONTANO, 3039-08, #### [facility] ([id number]) [address] [place] [address] Glucose [Mass/Vol] 195 mg/dL High 65-99 [facility] Comment on above: Performed By: #### C MAHENDRA MONTANO, 3, #### [facility] ([id number]) [address] [place] [address] Potassium [Moles/Vol] 3.5 mmol/L Normal 3.5-5.0 [facility] Comment on above: Performed By: #### C BCA, CMP, 3040-3, 79927-4 #### [facility] ([id number]) [address] [place] [address] Protein [Mass/Vol] 6.6 g/dL Normal 6.0-8.0 [facility] Comment on above: Performed By: #### C BCA, CMP, 3040-3, 38203-6 #### [facility] ([id number]) [address] [place] [address] Sodium [Moles/Vol] 136 mmol/L Normal 134-146 [facility] Comment on above: Performed By: #### C BCA, CMP, 3040-3, 39723-6 #### [facility] ([id number]) [address] [place] [address] Urea nitrogen [Mass/Vol] 19 mg/dL Normal 5-23 [facility] Comment on above: Performed By: #### C BCA, CMP, 3040-3, 42912-0 #### [facility] ([id number]) [address] [place] [address] CT ABDOMEN AND PELVIS W CONT on 09-02-2023 CT ABDOMEN AND PELVIS W CONT CT ABDOMEN AND PELVIS W CONT CT ABDOMEN AND PELVIS W CONT CLINICAL HISTORY:Crohn's exacerbation COMPARISON: 07/16/2023. TECHNIQUE: CT abdomen and pelvis was performed utilizing the standard protocol following the uneventful administration of 100 cc Omnipaque 300 nonionic intravenous contrast. Coronal and sagittal reformatted images were generated and reviewed. Automated exposure control was utilized. FINDINGS: No acute findings lower thorax. Mild diffuse hepatic steatosis. Unremarkable spleen, pancreas, adrenal glands. Cholecystectomy. Small nonobstructing renal calculi bilaterally, left lower pole nonobstructing calculus measures up to 0.8 cm. Retroverted uterus. Follicular changes left ovary. No dilatation or wall thickening of the bowel. No fat stranding adjacent to the bowel. No acute occlusion the major visceral vasculature. No aggressive osseous lesions. IMPRESSION: 1. No acute process within the abdomen or pelvis. No convincing evidence of active inflammatory bowel disease. 2. Nonobstructing renal calculi. All CT scans at this facility use dose modulation, iterative reconstruction, and/or weight based dosing when appropriate to reduce radiation dose to as low as reasonably achievable. Finalized by Pola Chadwick MD on 09/02/2023 1:48 AM Normal [facility] LIPASEon 09-02-2023 Lipase [Catalytic activity/Vol] 36 U/L Normal -82 [facility] Comment on above: Performed By: #### 2 106-3 #### [facility] ([id number]) [address] [place] [address] MAGNESIUMon 09-02-2023 Magnesium [Mass/Vol] 1.5 mg/dL Low 1.8-2.6 [facility] Comment on above: Performed By: #### 2 106-3 #### [facility] ([id number]) [address] [place] [address] URN MACROSCOPIC NURon 2023 BILIRUBIN AGUILAR Negative Normal NEG [facility] Comment on above: Performed By: #### 2 106-3 #### [facility] ([id number]) [address] [place] [address] BLOOD/HGB AGUILAR Trace Abnormal NEG [facility] Comment on above: Performed By: #### 2 106-3 #### [facility] ([id number]) [address] [place] [address] GLUCOSE AGUILAR 100 mg/dL Abnormal NEG [facility] Comment on above: Performed By: #### 2 106-3 #### [facility] ([id number]) [address] [place] [address] KETONES AGUILAR Negative Normal NEG [facility] Comment on above: Performed By: #### 2 106-3 #### [facility] ([id number]) [address] [place] [address] LEUKOCYTE ESTERASE AGUILAR Negative Normal NEG [facility] Comment on above: Performed By: #### 2 106-3 #### [facility] ([id number]) [address] [place] [address] NITRITE AGUILAR Negative Normal NEG [facility] Comment on above: Performed By: #### 2 106-3 #### [facility] ([id number]) [address] [place] [address] PH AGUILAR 6.0 Normal 5.0-8.5 [facility] Comment on above: Performed By: #### 2 106-3 #### [facility] ([id number]) [address] [place] [address] PROTEIN AGUILAR Negative Normal NEG [facility] Comment on above: Performed By: #### 2 106-3 #### [facility] ([id number]) [address] [place] [address] SPECIFIC GRAVITY AGUILAR 1.015 Normal 1.003-1.035 [facility] Comment on above: Performed By: #### 2 106-3 #### [facility] ([id number]) [address] [place] [address] UROBILINOGEN AGUILAR 0.2 eu/dL Normal <1.1 [facility] Comment on above: Performed By: #### 2 106-3 #### [facility] ([id number]) [address] [place] [address] BASIC METABOLIC PANLon 07-16 Anion gap [Moles/Vol] 8 mmol/L Normal 5-15 [facility] Comment on above: Performed By: #### C BCA, BMP, 80583-7, 58712-8 #### [facility] ([id number]) [address] [place] [address] Calcium [Mass/Vol] 9.1 mg/dL Normal 8.5-10.5 [facility] Comment on above: Performed By: #### C CRIS MONTANO, , #### [facility] ([id number]) [address] [place] [address] Chloride [Moles/Vol] 102 mmol/L Normal 98-109 [facility] Comment on above: Performed By: #### C CHARMAINE, CRIS, , #### [facility] ([id number]) [address] [place] [address] CO2 [Moles/Vol] 31 mmol/L Normal 22-32 [facility] Comment on above: Performed By: #### C CRIS MONTANO, , #### [facility] ([id number]) [address] [place] [address] Creatinine [Mass/Vol] 0.84 mg/dL Normal 0.40-1.00 [facility] Comment on above: Result Comment: METH OD TRACEABLE TO IDMS STANDARD Performed By: #### C CRIS MONTANO, , #### [facility] ([id number]) [address] [place] [address] GFR/1.73 sq M.predicted among non-blacks MDRD (S/P/Bld) [Vol rate/Area] 87 mL/min/{1.73_m2} Normal >59 [facility] Comment on above: Result Comment: Reported eGFR is based on the CKD-EPI 2020 equation that does not use a race coefficient. Performed By: #### C CRIS MONTANO, , #### [facility] ([id number]) [address] [place] [address] Glucose [Mass/Vol] 168 mg/dL High 65-99 [facility] Comment on above: Performed By: #### C CHARMAINE, BMP, , #### [facility] ([id number]) [address] [place] [address] Potassium [Moles/Vol] 4.0 mmol/L Normal 3.5-5.0 [facility] Comment on above: Performed By: #### C BCA, BMP, , #### [facility] ([id number]) [address] [place] [address] Sodium [Moles/Vol] 141 mmol/L Normal 134-146 [facility] Comment on above: Performed By: #### C CHARMAINE, BMP, , #### [facility] ([id number]) [address] [place] [address] Urea nitrogen [Mass/Vol] 18 mg/dL Normal 5-23 [facility] Comment on above: Performed By: #### C CHARMAINE, BMP, , #### [facility] ([id number]) [address] [place] [address] CBC AND AUTO DIFFon 07-16-19 24 ABSOLUTE BASOPHIL 0.0 X10E9/L Normal 0.0-0.2 [facility] Comment on above: Performed By: #### C BCA, BMP, , #### [facility] ([id number]) [address] [place] [address] ABSOLUTE NEUTROPHIL 6.9 X10E9/L High 1.5-6.6 [facility] Comment on above: Performed By: #### C BCA, BMP, , #### [facility] ([id number]) [address] [place] [address] Basophils/100 WBC (Bld) 0.4 % Normal [facility] Comment on above: Performed By: #### C CHARMAINE, BMP, , #### [facility] ([id number]) [address] [place] [address] Eosinophils (Bld) [#/Vol] 0.0 10*3/uL Normal 0.0-0.4 [facility] Comment on above: Performed By: #### C CHARMAINE, BMP, , #### [facility] ([id number]) [address] [place] [address] Eosinophils/100 WBC (Bld) 0.5 % Normal [facility] Comment on above: Performed By: #### C CHARMAINE, BMP, , #### [facility] ([id number]) [address] [place] [address] Erythrocyte distribution width (RBC) [Ratio] 14.7 % Normal 11.5-15.0 [facility] Comment on above: Performed By: #### C CHARMAINE, CRIS, , #### [facility] ([id number]) [address] [place] [address] Hematocrit (Bld) [Volume fraction] 38.5 % Normal 35-47 [facility] Comment on above: Performed By: #### C CHARMAINE, BMP, , #### [facility] ([id number]) [address] [place] [address] Hemoglobin (Bld) [Mass/Vol] 12.6 g/dL Normal 11.7-15.5 [facility] Comment on above: Performed By: #### C CHARMAINE, BMP, , #### [facility] ([id number]) [address] [place] [address] Lymphocytes (Bld) [#/Vol] 2.2 10*3/uL Normal 1.0-3.5 [facility] Comment on above: Performed By: #### C CHARMAINE, BMP, , #### [facility] ([id number]) [address] [place] [address] Lymphocytes/100 WBC (Bld) 21.7 % Normal [facility] Comment on above: Performed By: #### C CHARMAINE, BMP, , #### [facility] ([id number]) [address] [place] [address] MCH (RBC) [Entitic mass] 27.9 pg Normal 27-34 [facility] Comment on above: Performed By: #### C CHARMAINE, BMP, , #### [facility] ([id number]) [address] [place] [address] MCHC (RBC) [Mass/Vol] 32.6 g/dL Normal 32-36 [facility] Comment on above: Performed By: #### C CHARMAINE, BMP, , #### [facility] ([id number]) [address] [place] [address] MCV (RBC) [Entitic vol] 85 fL Normal 80-100 [facility] Comment on above: Performed By: #### C CHARMAINE, BMP, , #### [facility] ([id number]) [address] [place] [address] Monocytes (Bld) [#/Vol] 0.8 10*3/uL Normal 0-0.9 [facility] Comment on above: Performed By: #### C CHARMAINE, BMP, , #### [facility] ([id number]) [address] [place] [address] Monocytes/100 WBC (Bld) 7.8 % Normal [facility] Comment on above: Performed By: #### C CHARMAINE, BMP, , #### [facility] ([id number]) [address] [place] [address] Neutrophils/100 WBC (Bld) 69.6 % Normal [facility] Comment on above: Performed By: #### C CHARMAINE, BMP, , #### [facility] ([id number]) [address] [place] [address] Platelet mean volume (Bld) [Entitic vol] 7.4 fL Normal 7-12 [facility] Comment on above: Performed By: #### C CHARMAINE, BMP, , #### [facility] ([id number]) [address] [place] [address] Platelets (Bld) [#/Vol] 258 10*3/uL Normal 150-450 [facility] Comment on above: Performed By: #### C CHARMAINE, BMP, , #### [facility] ([id number]) [address] [place] [address] RBC COUNT 4.51 X10E12/L Normal 3.80-5.20 [facility] Comment on above: Performed By: #### C CHARMAINE, BMP, , 37111-9 #### [facility] ([id number]) [address] [place] [address] WBC (Bld) [#/Vol] 10.0 10*3/uL Normal 4.0-11.0 [facility] Comment on above: Performed By: #### C BCA, BMP, , 83088-0 #### [facility] ([id number]) [address] [place] [address] ABDOMEN AND PELVIS WO CON Ton [...] Powers MD on 07/16/2023 1:12 AM Normal [facility] HCG ( test) Ql (U)o n 07-16-2023 Beta HCG ( test) Ql (U) Negative Normal NEG [facility] Comment on above: Performed By: #### 2 106-3 #### [facility] ([id number]) [address] [place] [address] MAGNESIUMon 07-16-2023 Magnesium [Mass/Vol] 2.0 mg/dL Normal 1.8-2.6 [facility] Comment on above: Performed By: #### C BCA, BMP, 45345-3, 77632-3 #### [facility] ([id number]) [address] [place] [address] TROPONIN Ion 07-16-2023 Troponin I.cardiac [Mass/Vol] ng/mL Normal 0.00-0.04 [facility] Comment on above: Performed By: #### C BCA, BMP, 19862-3, 82539-0 #### [facility] ([id number]) [address] [place] [address] URINALYSISon 07-16-2023 Bilirubin Ql (U) Negative Normal NEG [facility] Comment on above: Performed By: #### U A #### [facility] ([id number]) [address] [place] [id number] BLOOD/HGB SMALL Abnormal NEG [facility] Comment on above: Performed By: #### U A #### [facility] ([id number]) [address] [place] [address] Color (U) YELLOW Normal YELLOW [facility] Comment on above: Performed By: #### U A #### [facility] ([id number]) [address] [place] [address]48[address] Glucose Ql (U) >1000 Abnormal NEG [facility] Comment on above: Performed By: #### U A #### [facility] ([id number]) [address] [place] [address] Ketones Ql (U) Negative Normal NEG [facility] Comment on above: Performed By: #### U A #### [facility] ([id number]) [address] [place] [id number] Leukocyte esterase Test strip Ql (U) Negative Normal NEG [facility] Comment on above: Result Comment: HIGH CONCENTRATIONS OF GLUCOSE MAY DECREASE THE REACTIVITY OF THE DIPSTICK LEUKOCYTE TEST PAD. Performed By: #### U A #### [facility] ([id number]) [address] [place] [address] [id number] Nitrite Ql (U) Negative Normal NEG [facility] Comment on above: Performed By: #### U A #### [facility] ([id number]) [address] [place] [address] pH (U) 6.0 [pH] Normal 5.0-8.5 [facility] Comment on above: Performed By: #### U A #### [facility] ([id number]) [address] [place] [address] Protein Ql (U) Negative Normal NEG [facility] Comment on above: Performed By: #### U A #### [facility] ([id number]) [address] [place] [address] R.B.CELLS 2 /hpf Normal 0-5 [facility] Comment on above: Performed By: #### U A #### [facility] ([id number]) [address] [place] [address] Specific gravity (U) [Rel density] 1.010 Normal 1.003-1.035 [facility] Comment on above: Performed By: #### U A #### [facility] ([id number]) [address] [place] [address] SQUAMOUS EPITHELIUM 5 /hpf Normal 0-5 [facility] Comment on above: Performed By: #### U A #### [facility] ([id number]) [address] [place] [address] TURBIDITY CLEAR Normal CLEAR [facility] Comment on above: Performed By: #### U A #### [facility] ([id number]) [address] [place] [address]183 Urobilinogen Qn (U) 0.2 {Gianni'U}/dL Normal <1.1 [facility] Comment on above: Performed By: #### U A #### [facility] ([id number]) [address] [place] [address] W.B.CELLS 0 /hpf Normal 0-5 [facility] Comment on above: Performed By: #### U A #### [facility] ([id number]) [address] [place] [address] URN MACROSCOPIC NURon 2023 BILIRUBIN AGUILAR Negative Normal NEG [facility] Comment on above: Performed By: #### N UM #### [facility] ([id number]) [address] [place] [address] BLOOD/HGB AGUILAR Small Abnormal NEG [facility] Comment on above: Performed By: #### N UM #### [facility] ([id number]) [address] [place] [address] GLUCOSE AGUILAR 500 mg/dL Abnormal NEG [facility] Comment on above: Performed By: #### N UM #### [facility] ([id number]) [address] [place] [address] KETONES AGUILAR Negative Normal NEG [facility] Comment on above: Performed By: #### N UM #### [facility] ([id number]) [address] [place] [address] LEUKOCYTE ESTERASE AGUILAR Negative Normal NEG [facility] Comment on above: Performed By: #### N UM #### [facility] ([id number]) [address] [place] [address] NITRITE AGUILAR Negative Normal NEG [facility] Comment on above: Performed By: #### N UM #### [facility] ([id number]) [address] [place] [address] PH AGUILAR 5.5 Normal 5.0-8.5 [facility] Comment on above: Performed By: #### N UM #### [facility] ([id number]) [address] [place] [address] PROTEIN AGUILAR Negative Normal NEG [facility] Comment on above: Performed By: #### N UM #### [facility] ([id number]) [address] [place] [address] SPECIFIC GRAVITY AGUILAR 1.015 Normal 1.003-1.035 [facility] Comment on above: Performed By: #### N UM #### [facility] ([id number]) [address] [place] [address] UROBILINOGEN AGUILAR 0.2 eu/dL Normal <1.1 [facility] Comment on above: Performed By: #### N UM #### [facility] ([id number]) [address] [place] [address] Absolute lymphocyte countOrd ered By: Srinath Noriega on 07-06-2023 Lymphocytes Auto (Unsp spec) [#/Vol] 2.701 10*3/uL 1.0-5.5 [facility] Alkaline phosphatase measure mentOrdered By: Srinath Noriega on 07-06-2023 ALP (S/P/Bld) [Catalytic activity/Vol] 80 units/L 38-126 [facility] Basophils Auto (Bld) [#/Vol] Ordered By: Srinath Noriega on 07-06-2023 Basophils (Bld) [#/Vol] 0.0674 10*3/uL 0.0-0.3 [facility] Basophils/100 WBC Auto (Bld) Ordered By: Srinath Noriega on 07-06-2023 Basophils/100 WBC (Bld) 0.5669 % 0.0-3.0 [facility] Complete Blood Count Auto Di ffon 07-06-2023 Basophils Absolute Auto 0.0674 Normal 0.0-0.3 [facility] Comment on above: Performed By: #### C MP, CBC #### [facility] [address] [place], [place] [address] Basophils Percent Auto 0.5669 Normal 0.0-3.0 [facility] Comment on above: Performed By: #### C MP, CBC #### [address] [address] Eosinophils Absolute Auto 0.0519 Normal 0.0-1.1 [facility] Comment on above: Performed By: #### C MP, CBC #### [address] [address] Eosinophils Percent Auto 0.4361 Normal 0.0-10.0 [facility] Comment on above: Performed By: #### C MP, CBC #### [address] [address] Erythrocyte distribution width (RBC) [Ratio] 13.6 % Normal 8.5-15.5 [facility] Comment on above: Performed By: #### C MP, CBC #### [address] [address] Hematocrit (Bld) [Volume fraction] 43.9 % Normal 37.0-47.0 [facility] Comment on above: Performed By: #### C MP, CBC #### [address] [address] Hemoglobin (Bld) [Mass/Vol] 13.4 g/dL Normal 12.0-16.0 [facility] Comment on above: Performed By: #### C MP, CBC #### [address] [address] Lymphocytes Absolute Auto 2.701 Normal 1.0-5.5 [facility] Comment on above: Performed By: #### C MP, CBC #### [address] [address] Lymphocytes Percent Auto 22.71 Normal 20-51.1 [facility] Comment on above: Performed By: #### C MP, CBC #### [address] [address] MCH (RBC) [Entitic mass] 26.9 pg Low 28.5-32.5 [facility] Comment on above: Performed By: #### C MP, CBC #### [address] [address] MCV (RBC) [Entitic vol] 87.8 fL Normal 80.0-94.0 [facility] Comment on above: Performed By: #### C MP, CBC #### [facility] [address] [place], [place] [address] Mean Corpuscular HGB Conc 30.6 g/dL Low 32.0-37.0 [facility] Comment on above: Performed By: #### C MP, CBC #### [facility] [address] [place], [place] [address] Monocytes Absolute Auto 0.3747 Normal 0.1-1.0 [facility] Comment on above: Performed By: #### C MP, CBC #### [address] [address] Monocytes Percent Auto 3.151 Normal 1.7-9.3 [facility] Comment on above: Performed By: #### C MP, CBC #### [address] [address] Neutrophils Absolute Auto 8.699 High 2.0-8.1 [facility] Comment on above: Performed By: #### C MP, CBC #### [address] [address] Neutrophils Percent Auto 73.14 Normal 42.2-75.2 [facility] Comment on above: Performed By: #### C MP, CBC #### [address] [address] Platelet Count 364.8 Thou/mm3 Normal 130-400 [facility] Comment on above: Performed By: #### C MP, CBC #### [address] [address] RBC (Bld) [#/Vol] 5.00 10*6/uL Normal 4.20-5.40 [facility] Comment on above: Performed By: #### C MP, CBC #### [address] [address] White Blood Count 11.9 Thou/mL3 High 4.8-10.8 [facility] Comment on above: Performed By: #### C MP, CBC #### [address] [address] Comprehensive Metabolic Pane johan 07-06-2023 Alanine Aminotransferase V 38 units/L High 4-35 [facility] Comment on above: Performed By: #### C MP, CBC #### [address] [address] Albumin [Mass/Vol] 4.1 g/dL Normal 3.5-5.0 [facility] Comment on above: Performed By: #### C MP, CBC #### [address] [address] Albumin Globulin Ratio 1.3 g/dL Normal [facility] Comment on above: Performed By: #### C MP, CBC #### [address] [address] Alkaline Phosphatase 80 units/L Normal 38-126 [facility] Comment on above: Performed By: #### C MP, CBC #### [address] [address] Anion gap [Moles/Vol] 4.5 mmol/L Low 12-16 [facility] Comment on above: Performed By: #### C MP, CBC #### [address] [address] Aspartate Amino Transferase 28 units/L Normal 14-36 [facility] Comment on above: Performed By: #### C MP, CBC #### [address] [address] Bilirubin [Mass/Vol] 0.8 mg/dL Normal 0.2-1.3 [facility] Comment on above: Performed By: #### C MP, CBC #### [address] [address] Calcium [Mass/Vol] 9.3 mg/dL Normal 8.4-10.2 [facility] Comment on above: Performed By: #### C MP, CBC #### [address] [address] Chloride [Moles/Vol] 102 mmol/L Normal 98-120 [facility] Comment on above: Performed By: #### C MP, CBC #### [address] [address] CO2 [Moles/Vol] 29 mmol/L Normal 22-31 [facility] Comment on above: Performed By: #### C MP, CBC #### [address] [address] Creatinine [Mass/Vol] 1.1 mg/dL High 0.5-1.0 [facility] Comment on above: Performed By: #### C MP, CBC #### [address] [address] Globulin (S) [Mass/Vol] 3.0 g/dL Normal [facility] Comment on above: Performed By: #### C MP, CBC #### [address] [address] Glomerular Filtration Rate 56.8 Normal [facility] Comment on above: Performed By: #### C MP, CBC #### [address] [address] Glucose [Mass/Vol] 316 mg/dL High 65-105 [facility] Comment on above: Performed By: #### C MP, CBC #### [address] [address] Potassium [Moles/Vol] 3.6 mmol/L Normal 3.6-5.0 [facility] Comment on above: Performed By: #### C MP, CBC #### [address] [address] Protein [Mass/Vol] 7.1 g/dL Normal 6.3-8.2 [facility] Comment on above: Performed By: #### C MP, CBC #### [address] [address] Sodium [Moles/Vol] 136 mmol/L Normal 135-145 [facility] Comment on above: Performed By: #### C MP, CBC #### [address] [address] Urea nitrogen [Mass/Vol] 20 mg/dL High 7-17 [facility] Comment on above: Performed By: #### C MP, CBC #### [address] [address] Eosinophils Auto (Bld) [#/Vo l]Ordered By: Srinath Noriega on 07-06-2023 Eosinophils (Bld) [#/Vol] 0.0519 10*3/uL 0.0-1.1 [facility] Eosinophils/100 WBC Auto (Bl d)Ordered By: Srinath Noriega on 07-06-2023 Eosinophils/100 WBC (Bld) 0.4361 % 0.0-10.0 [facility] - Chemistry and C hemistry - challengeOrdered By: Srinath Noriega on 07-06-2023 Anion gap [Moles/Vol] 4.5 mmol/L Low 12-16 [facility] Calcium [Mass/Vol] 9.3 mg/dL 8.4-10.2 [facility] CO2 [Moles/Vol] 29 mmol/L 22-31 [facility] Globulin (S) [Mass/Vol] 3.0 g/dL [facility] Urea nitrogen [Mass/Vol] 20 mg/dL High 7-17 [facility] - Hematology and Cell countsOrdered By: Srinath Noriega on 07-06-2023 Erythrocyte distribution width (RBC) [Ratio] 13.6 % 8.5-15.5 [facility] Hematocrit (Bld) [Volume fraction] 43.9 % 37.0-47.0 [facility] MCH (RBC) [Entitic mass] 26.9 pg Low 28.5-32.5 [facility] MCHC (RBC) [Mass/Vol] 30.6 g/dL Low 32.0-37.0 [facility] Neutrophils (Bld) [#/Vol] 8.699 10*3/uL High 2.0-8.1 [facility] RBC (Bld) [#/Vol] 5.00 10*6/uL 4.20-5.40 [facility] MCV (mean corpuscular volume ) determinationOrdered By: rSinath Noriega on 07-06-2023 MCV (RBC) [Entitic vol] 87.8 fL 80.0-94.0 [facility] Monocytes Auto (Bld) [#/Vol] Ordered By: Srinath Noriega on 07-06-2023 Monocytes (Bld) [#/Vol] 0.3747 10*3/uL 0.1-1.0 [facility] Monocytes/100 WBC Auto (Bld) Ordered By: Srinath Noriega on 07-06-2023 Monocytes/100 WBC (Bld) 3.151 % 1.7-9.3 [facility] Neutrophils/100 WBC Auto (Bl d)Ordered By: Srinath Noriega on 07-06-2023 Neutrophils/100 WBC (Bld) 73.14 % 42.2-75.2 [facility] No Panel InformationOrdered By: Srinath Meka on 07-06-2023 Alanine Aminotransferase (ALT/SGPT) 38 units/L High 4-35 [facility] Albumin/Globulin Ratio 1.3 g/dL [facility] Lymphocytes (%) (Auto) 22.71 20-51.1 [facility] Platelet Count 364.8 Thou/mm3 130-400 [facility] Trichomonas screenOrdered By : Srinath Noriega on 07-06-2023 Albumin [Mass/Vol] 4.1 g/dL 3.5-5.0 [facility] Bilirubin [Mass/Vol] 0.8 mg/dL 0.2-1.3 [facility] Chloride [Moles/Vol] 102 mmol/L 98-120 [facility] Creatinine [Mass/Vol] 1.1 mg/dL High 0.5-1.0 [facility] Glucose [Mass/Vol] 316 mg/dL High 65-105 [facility] Hemoglobin (Bld) [Mass/Vol] 13.4 g/dL 12.0-16.0 [facility] Potassium [Moles/Vol] 3.6 mmol/L 3.6-5.0 [facility] Protein [Mass/Vol] 7.1 g/dL 6.3-8.2 [facility] Sodium [Moles/Vol] 136 mmol/L 135-145 [facility] Trichomonas screen 11.9 Thou/mL3 High 4.8-10.8 [facility] Trichomonas screen 56.8 [facility] Trichomonas screen 28 units/L 14-36 [facility] AMYLASEon 03-16-2022 Amylase [Catalytic activity/Vol] 49 U/L Normal 25-115 [facility] Comment on above: Performed By: #### A MY, CMP, LIPA #### [facility] [address] [place] [address] Dr. Phi Souza Basophils Auto (Bld) [#/Vol] Ordered By: Huey Maharaj on 03-16-2022 Basophils (Bld) [#/Vol] 0.0 10*3/uL 0.0-0.2 [facility] Basophils/100 WBC Auto (Bld) Ordered By: Huey Maharaj on 03-16-2022 Basophils/100 WBC (Bld) 0.4 % . [facility] Blood hemoglobin measurement (mass/volume)Ordered By: Huey Maharaj on 03-16-2022 Hemoglobin (Bld) [Mass/Vol] 11.9 g/dL 11.8-15.4 [facility] Blood leukocytes automated c ount (number/volume)Ordered By: Huey Maharaj on 03-16-2022 WBC (Bld) [#/Vol] 6.5 10*3/uL 4.5-11.0 [facility] Body fluid albumin measureme nt (mass/volume)Ordered By: Huey Maharaj on 03-16-2022 Albumin (Body fld) [Mass/Vol] 3.1 g/dL 3.2-5.5 [facility] CBC AUTO DIFFon 03-16-2022 BASO # 0.0 103/ul Normal 0.0-0.1 [facility] Comment on above: Performed By: #### C BC #### [facility] [address] [place] [address] Dr. Phi Souza Basophils/100 WBC (Bld) 0.5 % Normal 0.2-2.0 [facility] Comment on above: Performed By: #### C BC #### [facility] [address] [place] [address] Dr. Phi Souza EO # 0.1 103/ul Normal 0.0-0.7 [facility] Comment on above: Performed By: #### C BC #### [facility] [address] [place] [address] Dr. Phi Souza Eosinophils/100 WBC (Bld) 1.2 % Normal 0.9-7.0 [facility] Comment on above: Performed By: #### C BC #### [facility] [address] [place] [address] Dr. Phi Souza Erythrocyte distribution width (RBC) [Ratio] 12.7 % Normal 11.0-15.0 [facility] Comment on above: Performed By: #### C BC #### [facility] [address] [place] [address] Dr. Phi Souza Hematocrit (Bld) [Volume fraction] 37.6 % Normal 36.0-48.0 [facility] Comment on above: Performed By: #### C BC #### [facility] [address] [place] [address] Dr. Phi Souza Hemoglobin (Bld) [Mass/Vol] 12.3 g/dL Normal 12.0-16.0 [facility] Comment on above: Performed By: #### C BC #### [facility] [address] [place] [address] Dr. Phi Souza IG # 0.03 10e3/ul Normal 0.00-0.03 [facility] Comment on above: Performed By: #### C BC #### [facility] [address] [place] [address] Dr. Phi Souza IG % 0.5 % Normal 0.0-0.5 [facility] Comment on above: Performed By: #### C BC #### [facility] [address] [place] [address] Dr. Phi Souza LYMPH # 1.8 103/ul Normal 1.2-3.8 [facility] Comment on above: Performed By: #### C BC #### [facility] [address] [place] [address] Dr. Phi Souza Lymphocytes/100 WBC (Bld) 30.1 % Normal 20.5-60.0 [facility] Comment on above: Performed By: #### C BC #### [facility] [address] [place] [address] Dr. Phi Souza MANUAL DIFF REQ NO Normal [facility] Comment on above: Performed By: #### C BC #### [facility] [address] [place] [address] Dr. Phi Souza MCH (RBC) [Entitic mass] 28.5 pg Normal 26.7-34.0 [facility] Comment on above: Performed By: #### C BC #### [facility] [address] [place] [address] Dr. Phi Souza MCHC (RBC) [Mass/Vol] 32.7 g/dL Normal 29.9-35.2 [facility] Comment on above: Performed By: #### C BC #### [facility] [address] [place] [address] Dr. Phi Souza MCV (RBC) [Entitic vol] 87.2 fL Normal 81.0-99.0 [facility] Comment on above: Performed By: #### C BC #### [facility] [address] [place] [address] Dr. Phi Souza MONO # 0.4 103/ul Normal 0.3-0.8 [facility] Comment on above: Performed By: #### C BC #### [facility] [address] [place] [address] Dr. Phi Souza Monocytes/100 WBC (Bld) 7.2 % Normal 1.7-12.0 [facility] Comment on above: Performed By: #### C BC #### [facility] [address] [place] [address] Dr. Phi Souza NEUT # 3.6 103/ul Normal 1.4-6.5 [facility] Comment on above: Performed By: #### C BC #### [facility] [address] [place] [address] Dr. Phi Souza Neutrophils/100 WBC (Bld) 60.5 % Normal 43.0-75.0 [facility] Comment on above: Performed By: #### C BC #### [facility] [address] [place] [address] Dr. Phi Souza Platelet mean volume (Bld) [Entitic vol] 8.8 fL Critically low 9.5-13.5 [facility] Comment on above: Performed By: #### C BC #### [facility] [address] [place] [address] Dr. Phi Souza PLT 305 103/ul Normal 150-450 [facility] Comment on above: Performed By: #### C BC #### [facility] [address] [place] [address] Dr. Phi Souza RBC 4.31 106/ul Normal 4.20-5.40 [facility] Comment on above: Performed By: #### C BC #### [facility] [address] [address] [address] Phi Souza WBC 5.9 103/ul Normal 4.0-11.0 [facility] Comment on above: Performed By: #### C BC #### [facility] [address] ABD/PELVIS WO CONon [...] by: DEIDRA MILLER Date: 2022-03-16 02:42 Normal [facility] Complete Blood Count Auto Di ffon 03-16-2022 Basophils (Bld) [#/Vol] 0.0 10*3/uL Normal 0.0-0.2 [facility] Comment on above: Result Comment: PERF ORMED BY: [place] [address] PATHOLOGIST HEALTHCARE RECEPTIONIST KIERRA BROOKS M.D. Performed By: #### L IPASE, CBC, CMP #### [place] [address] [place] Basophils/100 WBC (Bld) 0.4 % Normal . [facility] Comment on above: Performed By: #### L IPASE, CBC, CMP #### [address] Eosinophils (Bld) [#/Vol] 0.1 10*3/uL Normal 0.0-0.45 [facility] Comment on above: Performed By: #### L IPASE, CBC, CMP #### [address] Eosinophils/100 WBC (Bld) 1.0 % Normal . [facility] Comment on above: Performed By: #### L IPASE, CBC, CMP #### [address] Erythrocyte distribution width (RBC) [Ratio] 14.2 % Normal 11.9-15.3 [facility] Comment on above: Performed By: #### L IPASE, CBC, CMP #### [address] Hematocrit (Bld) [Volume fraction] 36.7 % Normal 34.0-46.4 [facility] Comment on above: Performed By: #### L IPASE, CBC, CMP #### [address] Hemoglobin (Bld) [Mass/Vol] 11.9 g/dL Normal 11.8-15.4 [facility] Comment on above: Performed By: #### L IPASE, CBC, CMP #### [place] [address] [place] Lymphocytes (Bld) [#/Vol] 1.8 10*3/uL Normal 1.00-4.8 [facility] Comment on above: Performed By: #### L IPASE, CBC, CMP #### [address] Lymphocytes/100 WBC (Bld) 28.0 % Normal . [facility] Comment on above: Performed By: #### L IPASE, CBC, CMP #### [address] [place] [address] [place] MCH (RBC) [Entitic mass] 28.2 pg Normal 24.7-34.3 [facility] Comment on above: Performed By: #### L IPASE, CBC, CMP #### [address] MCV (RBC) [Entitic vol] 86.6 fL Normal 80-100 [facility] Comment on above: Performed By: #### L IPASE, CBC, CMP #### [address] Mean Corpuscular HGB Conc 32.5 g/dL Normal 32.0-35.0 [facility] Comment on above: Performed By: #### L IPASE, CBC, CMP #### [address] Monocytes (Bld) [#/Vol] 0.6 10*3/uL Normal 0.0-0.8 [facility] Comment on above: Performed By: #### L IPASE, CBC, CMP #### [address] Monocytes/100 WBC (Bld) 9.9 % Normal . [facility] Comment on above: Performed By: #### L IPASE, CBC, CMP #### [address] Neutrophils (Bld) [#/Vol] 3.9 10*3/uL Normal 1.8-7.7 [facility] Comment on above: Performed By: #### L IPASE, CBC, CMP #### [address] Neutrophils/100 WBC (Bld) 60.7 % Normal . [facility] Comment on above: Performed By: #### L IPASE, CBC, CMP #### [address] Nucleated RBC/100 WBC (Bld) [Ratio] 0.1 % Normal 0-0.5 [facility] Comment on above: Performed By: #### L IPASE, CBC, CMP #### [address] Platelet mean volume (Bld) [Entitic vol] 7.4 fL Normal 6.3-10.7 [facility] Comment on above: Performed By: #### L IPASE, CBC, CMP #### [address] Platelets (Bld) [#/Vol] 313 10*3/uL Normal 150-450 [facility] Comment on above: Performed By: #### L IPASE, CBC, CMP #### [address] RBC (Bld) [#/Vol] 4.24 10*6/uL Normal 3.60-5.00 [facility] Comment on above: Performed By: #### L IPASE, CBC, CMP #### [address] WBC (Bld) [#/Vol] 6.5 10*3/uL Normal 4.5-11.0 [facility] Comment on above: Performed By: #### L IPASE, CBC, CMP #### [address] Comprehensive Metabolic Pane johan 03-16-2022 Albumin [Mass/Vol] 3.1 g/dL Low 3.2-5.5 [facility] Comment on above: Performed By: #### L IPASE, CBC, CMP #### [address] Albumin/Globulin [Mass ratio] 1.0 {ratio} Normal [facility] Comment on above: Performed By: #### L IPASE, CBC, CMP #### [address] ALP [Catalytic activity/Vol] 59 U/L Normal 32-92 [facility] Comment on above: Performed By: #### L IPASE, CBC, CMP #### [address] ALT [Catalytic activity/Vol] 28 U/L Normal 10-60 [facility] Comment on above: Performed By: #### L IPASE, CBC, CMP #### [facility] [address] Anion gap [Moles/Vol] 13.6 mmol/L Normal 6.0-15.0 [facility] Comment on above: Performed By: #### L IPASE, CBC, CMP #### [facility] [address] AST [Catalytic activity/Vol] 19 U/L Normal 10-42 [facility] Comment on above: Performed By: #### L IPASE, CBC, CMP #### [facility] [address] Bilirubin [Mass/Vol] 0.6 mg/dL Normal 0.3-1.2 [facility] Comment on above: Performed By: #### L IPASE, CBC, CMP #### [address] Calcium [Mass/Vol] 8.9 mg/dL Normal 8.2-10.2 [facility] Comment on above: Performed By: #### L IPASE, CBC, CMP #### [address] Chloride [Moles/Vol] 100 mmol/L Normal 95-114 [facility] Comment on above: Performed By: #### L IPASE, CBC, CMP #### [address] CO2 [Moles/Vol] 25.2 mmol/L Normal 22.0-30.0 [facility] Comment on above: Performed By: #### L IPASE, CBC, CMP #### [facility] [address] Creatinine [Mass/Vol] 0.89 mg/dL Normal 0.44-1.[address] [facility] Comment on above: Performed By: #### L IPASE, CBC, CMP #### [facility] [address] [place] [address] Creatinine Clr Calc Pharmacy 115.22 [facility] Comment on above: Performed By: #### L IPASE, CBC, CMP #### [address] Estimated GFR ( Miranda > 60 [facility] Comment on above: Result Comment: GFR estimated reference range: According to KDOQI guidelines, <60 ml/min/1.73m2 is sufficient to diagnose a patient with chronic kidney disease. Performed By: #### L IPASE, CBC, CMP #### [facility] [address] Estimated GFR (Non- Am > 60 [facility] Comment on above: Performed By: #### L IPASE, CBC, CMP #### [address] Globulin (S) [Mass/Vol] 3.1 g/dL Normal [facility] Comment on above: Performed By: #### L IPASE, CBC, CMP #### [address] Glucose [Mass/Vol] 159 mg/dL High 70-100 [facility] Comment on above: Result Comment: [place] Glucose Reference Range is dependent on time and content of last meal. Glucose of more than 200 mg/dL in a nonstressed, ambulatory subject supports the diagnosis of Diabetes Mellitus. ADA recommended reference range Performed By: #### L IPASE, CBC, CMP #### [facility] [address] [place] [address] Potassium [Moles/Vol] 3.8 mmol/L Normal 3.5-5.[address] [facility] Comment on above: Performed By: #### L IPASE, CBC, CMP #### [address] Protein [Mass/Vol] 6.2 g/dL Normal 6.1-7.9 [facility] Comment on above: Performed By: #### L IPASE, CBC, CMP #### [address] Sodium [Moles/Vol] 135 mmol/L Low 136-146 [facility] Comment on above: Performed By: #### L IPASE, CBC, CMP #### [facility] [address] Urea nitrogen [Mass/Vol] 12 mg/dL Normal 9-23 [facility] Comment on above: Performed By: #### L IPASE, CBC, CMP #### [facility] [address] Creatinine and Glomerular fi ltration rate.predicted panel (S/P/Bld)Ordered By: Huey Maharaj on 03-16-2022 Creatinine [Mass/Vol] 0.89 mg/dL 0.44-1.[address] [facility] ER URINE PROFILEon 2 Bilirubin Ql (U) Negative Normal NEGATIVE [facility] Comment on above: Performed By: #### E RUR #### [facility] [address] [place] [address] Dr. Phi Souza Clarity (U) CLEAR Normal CLEAR [facility] Comment on above: Performed By: #### E RUR #### [facility] [address] [address] [address] Phi Souza Color (U) LT. YELLOW Normal YELLOW [facility] Comment on above: Performed By: #### E RUR #### [facility] [address] [place] [address] Dr. Phi Souza ERUAHD A micrscopic examination will be performed if indicated. Normal [facility] Comment on above: Performed By: #### E RUR #### [facility] [address] [address] [address] Phi Souza Glucose Ql (U) Negative Normal NEGATIVE [facility] Comment on above: Performed By: #### E RUR #### [facility] [address] [place] [address] Dr. Phi Souza Hemoglobin Ql (U) Negative Normal NEGATIVE [facility] Comment on above: Performed By: #### E RUR #### [facility] [address] [place] [address] Dr. Phi Souza Ketones Ql (U) Negative Normal NEGATIVE [facility] Comment on above: Performed By: #### E RUR #### [facility] [address] [place] [address] Dr. Phi Souza LEUKOCYTES Negative Normal NEGATIVE [facility] Comment on above: Performed By: #### E RUR #### [facility] [address] [place] [address] Dr. Phi Souza Nitrite Ql (U) Negative Normal NEGATIVE [facility] Comment on above: Performed By: #### E RUR #### [facility] [address] [place] [address] Dr. Phi Souza pH (U) 6.0 [pH] Normal 5-9 [facility] Comment on above: Performed By: #### E RUR #### [facility] [address] [place] [address] Dr. Phi Souza SPEC GRAVITY 1.025 Normal 1.005-<=1.02 5 [facility] Comment on above: Performed By: #### E RUR #### [facility] [address] [place] [address] Dr. Phi Souza UA PROTEIN Negative Normal NEGATIVE/ TRACE [facility] Comment on above: Performed By: #### E RUR #### [facility] [address] [place] [address] Dr. Phi Souza UR MICRO IND NOT INDICATED Normal [facility] Comment on above: Performed By: #### E RUR #### [facility] [address] [place] [address] Dr. Phi Souza Urobilinogen Qn (U) 0.2 {Gianni'U}/dL Normal 0.2 - 1. 0 [facility] Comment on above: Performed By: #### E RUR #### [facility] [address] [place] [address] Dr. Phi Souza Eosinophils Auto (Bld) [#/Vo l]Ordered By: Huey Maharaj on 03-16-2022 Eosinophils (Bld) [#/Vol] 0.1 10*3/uL 0.0-0.45 [facility] Eosinophils/100 WBC Auto (Bl d)Ordered By: Huey Maharaj on 03-16-2022 Eosinophils/100 WBC (Bld) 1.0 % . [facility] Erythrocyte distribution wid th Auto (RBC) [Ratio]Ordered By: Huey Maharaj on 03-16-2022 Erythrocyte distribution width (RBC) [Ratio] 14.2 % 11.9-15.3 [facility] Estimated glomerular filtrat ion rate (GFR) non- AmericanOrdered By: Huey Maharaj on 03-16-2022 GFR/1.73 sq M.predicted among non-blacks MDRD (S/P/Bld) [Vol rate/Area] > 60 mL/Min [facility] Globulin Calc (S) [Mass/Vol] Ordered By: Huey Maharaj on 03-16-2022 Globulin (S) [Mass/Vol] 3.1 g/dL [facility] Hematocrit Auto (Bld) [Volum e fraction]Ordered By: Huey Maharaj on 03-16-2022 Hematocrit (Bld) [Volume fraction] 36.7 % 34.0-46.4 [facility] LIPASEon 03-16-2022 Lipase [Catalytic activity/Vol] 161.0 U/L Normal 73.0-393.0 [facility] Comment on above: Performed By: #### A MY, CMP, LIPA #### [facility] [address] [place], [place] [address] Dr. Phi Souza Laboratory - Chemistry and C hemistry - challengeOrdered By: Huey Maharaj on 03-16-2022 Lipase [Catalytic activity/Vol] 85.0 U/L [facility] Laboratory - Hematology and Cell countsOrdered By: Huey Maharaj on 03-16-2022 Nucleated RBC/100 WBC (Bld) [Ratio] 0.1 % 0-0.5 [facility] Lipaseon 03-16-2022 Lipase [Catalytic activity/Vol] 85.0 U/L High [facility] Comment on above: Result Comment: PERF ORMED BY: [address] [place] [address] PATHOLOGIST HEALTHCARE RECEPTIONIST KIERRA BROOKS M.D. Performed By: #### L IPASE, CBC, CMP #### [facility] [address] Lymphocytes Auto (Bld) [#/Vo l]Ordered By: Huey Maharaj on 03-16-2022 Lymphocytes (Bld) [#/Vol] 1.8 10*3/uL 1.00-4.8 [facility] Lymphocytes/100 WBC Auto (Bl d)Ordered By: Huey Maharaj on 03-16-2022 Lymphocytes/100 WBC (Bld) 28.0 % . [facility] MCH Auto (RBC) [Entitic mass ]Ordered By: Huey Maharaj on 03-16-2022 MCH (RBC) [Entitic mass] 28.2 pg 24.7-34.3 [facility] MCHC Auto (RBC) [Mass/Vol]Or dered By: Huey Maharaj on 03-16-2022 MCHC (RBC) [Mass/Vol] 32.5 g/dL 32.0-35.0 [facility] MCV Auto (RBC) [Entitic vol] Ordered By: Huey Maharaj on 03-16-2022 MCV (RBC) [Entitic vol] 86.6 fL 80-100 [facility] Monocytes Auto (Bld) [#/Vol] Ordered By: Huey Maharaj on 03-16-2022 Monocytes (Bld) [#/Vol] 0.6 10*3/uL 0.0-0.8 [facility] Monocytes/100 WBC Auto (Bld) Ordered By: Huey Maharaj on 03-16-2022 Monocytes/100 WBC (Bld) 9.9 % . [facility] Neutrophils Auto (Bld) [#/Vo l]Ordered By: Huey Maharaj on 03-16-2022 Neutrophils (Bld) [#/Vol] 3.9 10*3/uL 1.8-7.7 [facility] Neutrophils/100 WBC Auto (Bl d)Ordered By: Huey Maharaj on 03-16-2022 Neutrophils/100 WBC (Bld) 60.7 % . [facility] No Panel InformationOrdered By: Huey Maharaj on 03-16-2022 Estimated GFR () > 60 mL/Min [facility] Comment on above: GFR estimated refere nce range: According to KDOQI guidelines, <60 ml/min/1.73m2 is sufficient to diagnose a patient with chronic kidney disease. Pharmacy Creatinine Clearance (Chem 115.22 [facility] PROF 14(COMP METB)on 022 Albumin [Mass/Vol] 3.2 g/dL Critically low 3.4-5.0 [facility] Comment on above: Performed By: #### A MY, CMP, LIPA #### [facility] [address] [address] [address] Phi Souza Albumin/Globulin [Mass ratio] 0.8 {ratio} Normal [facility] Comment on above: Performed By: #### A MY, CMP, LIPA #### [facility] [address] [address] [address] Phi Souza ALP [Catalytic activity/Vol] 74 U/L Normal 46-116 [facility] Comment on above: Performed By: #### A MY, CMP, LIPA #### [facility] [address] [address] [address] Phi Souza ALT [Catalytic activity/Vol] 35 U/L Normal 14-59 [facility] Comment on above: Performed By: #### A MY, CMP, LIPA #### [facility] [address] [address] [address] Phi Souza Anion gap [Moles/Vol] 9.5 mmol/L Normal [facility] Comment on above: Performed By: #### A MY, CMP, LIPA #### [facility] [address] [address] [address] Phi Souza AST [Catalytic activity/Vol] 15 U/L Normal 15-37 [facility] Comment on above: Performed By: #### A MY, CMP, LIPA #### [facility] [address] [address] [address] Phi Souza Bilirubin [Mass/Vol] 0.3 mg/dL Normal 0.2-1.0 [facility] Comment on above: Performed By: #### A MY, CMP, LIPA #### [facility] [address] [address] [address] Phi Souza Calcium [Mass/Vol] 9.2 mg/dL Normal 8.5-10.1 [facility] Comment on above: Performed By: #### A MY, CMP, LIPA #### [facility] [address] [address] [address] Phi Souza Chloride [Moles/Vol] 100 mmol/L Normal 98-107 [facility] Comment on above: Performed By: #### A MY, CMP, LIPA #### [facility] [address] [address] [address] Phi Souza CO2 [Moles/Vol] 30.4 mmol/L Normal 21.0-32.0 [facility] Comment on above: Performed By: #### A MY, CMP, LIPA #### [facility] [address] [place] [address] Dr. Phi Souza Creatinine [Mass/Vol] 1.00 mg/dL Normal 0.55-1.02 [facility] Comment on above: Performed By: #### A MY, CMP, LIPA #### [facility] [address] [address] [address] Phi Souza EGFR-AF BAHRAINI >60 Normal >=60 [facility] Comment on above: Performed By: #### A MY, CMP, LIPA #### [facility] [address] [place] [address] Dr. Phi Souza EGFR-NON AF BAHRAINI 60 mL/min/1.73m2 Normal >=60 [facility] Comment on above: Performed By: #### A MY, CMP, LIPA #### [facility] [address] [address] [address] Phi Souza Globulin (S) [Mass/Vol] 3.8 g/dL Normal [facility] Comment on above: Performed By: #### A MY, CMP, LIPA #### [facility] [address] [place] [address] Dr. Phi Souza Glucose [Mass/Vol] 150 mg/dL Critically high 74-106 [facility] Comment on above: Performed By: #### A MY, CMP, LIPA #### [facility] [address] [address] [address] Phi Souza Potassium [Moles/Vol] 3.9 mmol/L Normal 3.5-5.1 [facility] Comment on above: Performed By: #### A MY, CMP, LIPA #### [facility] [address] [address] [address] Phi Souza Protein [Mass/Vol] 7.0 g/dL Normal 6.4-8.2 [facility] Comment on above: Performed By: #### A MY, CMP, LIPA #### [facility] [address] [address] [address] Phi Souza Sodium [Moles/Vol] 136 mmol/L Normal 136-145 [facility] Comment on above: Performed By: #### A MY, CMP, LIPA #### [facility] [address] [address] [address] Phi Souza Urea nitrogen [Mass/Vol] 14.0 mg/dL Normal 7.0-18.0 [facility] Comment on above: Performed By: #### A MY, CMP, LIPA #### [facility] [address] [address] [address] Phi Souza Urea nitrogen/Creatinine [Mass ratio] 14.0 mg/mg Normal [facility] Comment on above: Performed By: #### A MY, CMP, LIPA #### [facility] [address] [address] [address] Phi Souza Platelet mean volume Auto (B ld) [Entitic vol]Ordered By: Huey Maharaj on 03-16-2022 Platelet mean volume (Bld) [Entitic vol] 7.4 fL 6.3-10.7 [facility] Platelets Auto (Bld) [#/Vol] Ordered By: Huey Maharaj on 03-16-2022 Platelets (Bld) [#/Vol] 313 10*3/uL 150-450 [facility] Protein [Mass/volume] in Ser um or PlasmaOrdered By: Huey Maharaj on 03-16-2022 Protein [Mass/Vol] 6.2 g/dL 6.1-7.9 [facility] RBC Auto (Bld) [#/Vol]Ordere d By: Huey Maharaj on 03-16-2022 RBC (Bld) [#/Vol] 4.24 10*6/uL 3.60-5.00 [facility] Serum or plasma alanine villalobos otransferase measurement without P-5'-P (enzymatic activiOrdered By: Huey Maharaj on 03-16-2022 ALT No additional P-5'-P [Catalytic activity/Vol] 28 U/L 10-60 [facility] Serum or plasma albumin/glob ulin mass ratioOrdered By: Huey Maharaj on 03-16-2022 Albumin/Globulin [Mass ratio] 1.0 {ratio} [facility] Serum or plasma alkaline zan sphatase measurement (enzymatic activity/volume)Ordered By: Huey Maharaj on 03-16-2022 ALP [Catalytic activity/Vol] 59 U/L 32-92 [facility] Serum or plasma anion gap de terminationOrdered By: Huey Maharaj on 03-16-2022 Anion gap [Moles/Vol] 13.6 mmol/L 6.0-15.0 [facility] Serum or plasma aspartate am inotransferase measurement (enzymatic activity/volume)Ordered By: Huey Maharaj on 03-16-2022 AST [Catalytic activity/Vol] 19 U/L 10-42 [facility] Serum or plasma calcium rosa m urement (mass/volume)Ordered By: Huey Maharaj on 03-16-2022 Calcium [Mass/Vol] 8.9 mg/dL 8.2-10.2 [facility] Serum or plasma chloride joshua surement (moles/volume)Ordered By: Huey Maharaj on 03-16-2022 Chloride [Moles/Vol] 100 mmol/L 95-114 [facility] Serum or plasma glucose rosa m urement (mass/volume)Ordered By: Huey Maharaj on 03-16-2022 Glucose [Mass/Vol] 159 mg/dL 70-100 [facility] Comment on above: ADA recommended refe rence rangeRandom Glucose Reference Range is dependent on time and content of last meal. Glucose of more than 200 mg/dL in a nonstressed, ambulatory subject supports the diagnosis of Diabetes Mellitus. Serum or plasma potassium me asurement (moles/volume)Ordered By: Huey Maharaj on 03-16-2022 Potassium [Moles/Vol] 3.8 mmol/L 3.5-5.[address] [facility] Serum or plasma sodium measu rement (moles/volume)Ordered By: Huey Maharaj on 03-16-2022 Sodium [Moles/Vol] 135 mmol/L 136-146 [facility] Serum or plasma total biliru bin measurement (mass/volume)Ordered By: Huey Maharaj on 03-16-2022 Bilirubin [Mass/Vol] 0.6 mg/dL 0.3-1.2 [facility] Serum or plasma total carbon dioxide measurement (moles/volume)Ordered By: Huey Maharaj on 03-16-2022 CO2 [Moles/Vol] 25.2 mmol/L 22.0-30.0 [facility] Serum or plasma urea nitroge n measurement (mass/volume)Ordered By: Huey Maharaj on 03-16-2022 Urea nitrogen [Mass/Vol] 12 mg/dL 9- [facility] .UA Microscp 01-22-2022 UA Bacteria Absent Normal Absent [facility] Comment on above: Performed By: #### E GFR #### [place] [address] UA RBC Qual Absent Normal 0 - 5 [facility] Comment on above: Performed By: #### E GFR #### [place] [id number] UA Squepi Cells Qual Rare Normal 0 - [address] [facility] Comment on above: Performed By: #### E GFR #### [place] [address] UA WBC Qual Rare Normal 0 - 5 [facility] Comment on above: Performed By: #### E GFR #### [place] [address] .eGFRon 01-22-2022 GFR/1.73 sq M.predicted MDRD (S/P/Bld) [Vol rate/Area] mL/min/{1.73_m2} Normal >=60 [facility] Comment on above: Order Comment: Order added by Discern rule Result Comment: [facility] Laboratories have implemented the eGFR calculation approach [...] years Performed By: #### E GFR #### [address] [address] CBC W Auto Differential pane l (Bld)on 01-22-2022 BASOPHIL ABSOLUTE COUNT 0.02 x10*3/uL Normal 0.0-0.1 [facility] Comment on above: Performed By: #### 5 7021-8 ####CL[facility]ICAL LABORATORY[address] [address] [facility] Basophils/100 WBC (Bld) 0.3 % Normal 0.0-1.1 [facility] Comment on above: Performed By: #### 5 7021-8 ####[facility] LABORATORYDELSON [address] [address] [facility] EOS ABSOLUTE COUNT 0.01 x10*3/uL Normal 0.0-0.5 [facility] Comment on above: Performed By: #### 5 7021-8 ####[facility]ATORY[address] [address] [facility] Eosinophils/100 WBC (Bld) 0.1 % Normal 0.0-6.0 [facility] Comment on above: Performed By: #### 5 7021-8 ####[address] [address] [facility] Hematocrit (Bld) [Volume fraction] 38.4 % Normal 33.5-47.0 [facility] Comment on above: Performed By: #### 5 7021-8 ####[address] [address] [facility] Hemoglobin (Bld) [Mass/Vol] 12.7 g/dL Normal 11.0-17.0 [facility] Comment on above: Performed By: #### 5 7021-8 ####[address] [address] [facility] IMMATURE GRAN ABSOLUTE COUNT 0.04 x10*3/uL Normal 0.0-0.5 [facility] Comment on above: Performed By: #### 5 7021-8 ####[address] Immature granulocytes/100 WBC (Bld) 0.5 % Normal 0.0-2.99 [facility] Comment on above: Performed By: #### 5 7021-8 ####[address] LYMPHOCYTE ABSOLUTE COUNT 0.89 x10*3/uL Normal 0.5-3.2 [facility] Comment on above: Performed By: #### 5 7021-8 ####[place] [id number] [facility] Lymphocytes/100 WBC (Bld) 11.5 % Low 13.0-39.0 [facility] Comment on above: Performed By: #### 5 7021-8 ####[address] [address] [facility] MCH (RBC) [Entitic mass] 28.7 pg Normal 26.0-33.0 [facility] Comment on above: Performed By: #### 5 7021-8 ####[address] [address] [facility] MCV (RBC) [Entitic vol] 86.9 fL Normal 81.0-98.0 [facility] Comment on above: Performed By: #### 5 7021-8 ####CLINICAL [address] [address] [facility] MEAN CORPUSCULAR HGB CONC 33.1 g/dl Normal 31.0-35.0 [facility] Comment on above: Performed By: #### 5 7021-8 ####[address] [address] [facility] MONOCYTE ABSOLUTE COUNT 0.27 x10*3/uL Normal 0.0-1.0 [facility] Comment on above: Performed By: #### 5 7021-8 ####[address] [address] [facility] Monocytes/100 WBC (Bld) 3.5 % Low 4.0-13.0 [facility] Comment on above: Performed By: #### 5 7021-8 ####[address] [address] [facility] NEUTROPHIL COUNT ABSOLUTE 6.50 x10*3/uL High 1.5-6.2 [facility] Comment on above: Performed By: #### 5 7021-8 ####[address] [address] [facility] Neutrophils/100 WBC (Bld) 84.1 % High 47.0-76.0 [facility] Comment on above: Performed By: #### 5 7021-8 ####[address] [address] [facility] NUCLEATED RBC ABSOLUTE COUNT 0.00 x10*3/uL Normal [facility] Comment on above: Performed By: #### 5 7021-8 ####[address] [address] [facility] Nucleated RBC/100 WBC (Bld) [Ratio] 0.0 % Normal [facility] Comment on above: Performed By: #### 5 7021-8 ####[address] [address] [facility] PLATELET COUNT 269 x10*3/uL Normal 150-400 [facility] Comment on above: Performed By: #### 5 7021-8 ####[facility] LAB[facility]ATORY[address] [address] [facility] Platelet mean volume (Bld) [Entitic vol] 9.4 fL Normal 9.0-12.1 [facility] Comment on above: Performed By: #### 5 7021-8 ####CLINICAL [place] [id number] [facility] RED BLOOD COUNT 4.42 x10*6/uL Normal 3.8-6.0 [facility] Comment on above: Performed By: #### 5 7021-8 ####CLINICAL [address] RED CELL DISTRIBUTION WIDTH 41.1 fL Normal 36.7-49.4 [facility] Comment on above: Performed By: #### 5 7021-8 ####[address] WHITE BLOOD COUNT 7.73 X10*3/uL Normal 3.8-11.5 [facility] Comment on above: Performed By: #### 5 7021-8 ####[place] [id number] [facility] CBC w/ Diffon 01-22-2022 Erythrocyte distribution width (RBC) [Ratio] 14.3 % Normal 11.6-14.8 [facility] Comment on above: Performed By: #### C BC #### [address] [address] Hematocrit (Bld) [Volume fraction] 38.1 % Normal 36.0-46.0 [facility] Comment on above: Performed By: #### C BC #### [address] [address] Hemoglobin (Bld) [Mass/Vol] 12.7 g/dL Normal 12.0-16.0 [facility] Comment on above: Performed By: #### C BC #### [address] [address] MCH (RBC) [Entitic mass] 28.5 pg Normal 27.0-35.0 [facility] Comment on above: Performed By: #### C BC #### [place] [address] MCHC 33.3 % Normal 31.0-37.0 [facility] Comment on above: Performed By: #### C BC #### [place] [address] MCV (RBC) [Entitic vol] 85.8 fL Normal 80.0-100.0 [facility] Comment on above: Performed By: #### C BC #### [place] [address] Platelet 276 x10*3/mcL Normal 150-350 [facility] Comment on above: Performed By: #### C BC #### [place] [address] Platelet mean volume (Bld) [Entitic vol] 7.3 fL Low 7.5-11.5 [facility] Comment on above: Performed By: #### C BC #### [place] [address] RBC 4.44 x10*6/mcL Normal 3.80-5.20 [facility] Comment on above: Performed By: #### C BC #### [place] [address] WBC 6.0 x10*3/mcL Normal 4.5-11.0 [facility] Comment on above: Performed By: #### C BC #### [place] [address] CMPon 01-22-2022 Albumin [Mass/Vol] 3.8 g/dL Normal 3.7-5.3 [facility] Comment on above: Performed By: #### E GFR #### [place] [address] Albumin/Globulin [Mass ratio] 1.4 {ratio} Normal 1.1-2.2 [facility] Comment on above: Performed By: #### E GFR #### [place] [address] Alk Phos 57 IU/L Normal 34-104 [facility] Comment on above: Performed By: #### E GFR #### [address] [address] ALT [Catalytic activity/Vol] 34 U/L Normal 7-52 [facility] Comment on above: Performed By: #### E GFR #### [address] [address] Anion gap [Moles/Vol] 11 mmol/L Normal 7-17 [place] Comment on above: Performed By: #### E GFR #### [address] [address] AST [Catalytic activity/Vol] 20 U/L Normal 13-39 [facility] Comment on above: Performed By: #### E GFR #### [address] [address] Bili Total 0.5 mg/dL Normal 0.3-1.0 [facility] Comment on above: Performed By: #### E GFR #### [address] [address] Calcium [Mass/Vol] 8.7 mg/dL Normal 8.6-10.3 [facility] Comment on above: Performed By: #### E GFR #### [address] [address] Chloride 101 IU/L Normal 98-107 [facility] Comment on above: Performed By: #### E GFR #### [address] [address] CO2 [Moles/Vol] 27 mmol/L Normal 21-31 [facility] Comment on above: Performed By: #### E GFR #### [address] [address] Creatinine [Mass/Vol] 1.0 mg/dL Normal 0.6-1.2 [place] Comment on above: Performed By: #### E GFR #### [address] [address] Glucose [Mass/Vol] 160 mg/dL High 70-99 [facility] Comment on above: Performed By: #### E GFR #### [address] [address] Potassium [Moles/Vol] 3.3 mmol/L Low 3.4-4.8 [place] Comment on above: Performed By: #### E GFR #### [address] [address] Protein [Mass/Vol] 6.6 g/dL Normal 6.0-8.3 [facility] Comment on above: Performed By: #### E GFR #### [address] [address] Sodium [Moles/Vol] 136 mmol/L Normal 136-145 [facility] Comment on above: Performed By: #### E GFR #### [address] [address] Urea nitrogen [Mass/Vol] 10 mg/dL Normal 7-25 [facility] Comment on above: Performed By: #### E GFR #### [address] [address] Urea nitrogen/Creatinine [Mass ratio] 10.0 mg/mg Normal 10.0-20.0 [facility] Comment on above: Performed By: #### E GFR #### [address] [address] COMPREHENSIVE METABOLIC PANE Johan 01-22-2022 Albumin [Mass/Vol] 3.3 g/dL Normal 3.2-5.0 [facility] Comment on above: Performed By: #### M PC, LIP #### [facility] [address] [address] [place] Albumin/Globulin [Mass ratio] 0.9 {ratio} Normal [facility] Comment on above: Performed By: #### M PC, LIP #### [facility] [address] [address] [place] ALP [Catalytic activity/Vol] 71 U/L Normal 50-136 [facility] Comment on above: Performed By: #### M PC, LIP #### [facility] [address] ALT [Catalytic activity/Vol] 44 U/L Normal 30-65 [facility] Comment on above: Performed By: #### M PC, LIP #### [facility] [address] Anion gap [Moles/Vol] 15 mmol/L Normal 10-20 [facility] Comment on above: Performed By: #### M PC, LIP #### [facility] [address] AST [Catalytic activity/Vol] 23 U/L Normal 15-37 [facility] Comment on above: Performed By: #### M PC, LIP #### [facility] [address] Bilirubin [Mass/Vol] 0.5 mg/dL Normal 0.0-1.0 [facility] Comment on above: Performed By: #### M PC, LIP #### [facility] [address] Calcium [Mass/Vol] 8.6 mg/dL Low 8.7-10.5 [facility] Comment on above: Performed By: #### M PC, LIP #### [facility] [address] Chloride [Moles/Vol] 99 mmol/L Normal 99-111 [facility] Comment on above: Performed By: #### M PC, LIP #### [place] [address] [place] CO2 [Moles/Vol] 27 mmol/L Normal 21.0-32.0 [facility] Comment on above: Performed By: #### M PC, LIP #### [facility] [address] Creatinine [Mass/Vol] 1.2 mg/dL Normal 0.5-1.2 [facility] Comment on above: Performed By: #### M PC, LIP #### [place] [address] [place] GFR/1.73 sq M.predicted among non-blacks MDRD (S/P/Bld) [Vol rate/Area] 52 mL/min/{1.73_m2} Normal >59 [facility] Comment on above: Performed By: #### M PC, LIP #### [facility] [address] Globulin (S) [Mass/Vol] 3.8 g/dL Normal 1.3-4.7 [facility] Comment on above: Performed By: #### M PC, LIP #### [facility] [address] Glucose [Mass/Vol] 209 mg/dL High 70-100 [facility] Comment on above: Performed By: #### M PC, LIP #### [facility] [address] Potassium [Moles/Vol] 4.0 mmol/L Normal 3.5-5.0 [facility] Comment on above: Performed By: #### M PC, LIP #### [facility] [address] Protein [Mass/Vol] 7.1 g/dL Normal 6.0-8.5 [facility] Comment on above: Performed By: #### M PC, LIP #### [facility] [address] Sodium [Moles/Vol] 137 mmol/L Normal 137-147 [facility] Comment on above: Performed By: #### M PC, LIP #### [place] [address] [place] Urea nitrogen [Mass/Vol] 11 mg/dL Normal 7-22 [facility] Comment on above: Performed By: #### M PC, LIP #### [place] [address] [place] Urea nitrogen/Creatinine [Mass ratio] 9.2 mg/mg Normal 6-25 [facility] Comment on above: Performed By: #### M PC, LIP #### [facility] [address] Abdomen / Pelvis W/O Cont on 01-22-2022 CT Abdomen / Pelvis W/O Cont [facility] [address] [place], [place] [address] SCAN Name: NICKI OVIEDO Pt Type: JAY FARIA MR #: [id number] Room & Bed: Date of : 1975 Date of Service: 01/22/22 Age: 46 Ordering Doctor: Austen Rojas MD Sex: Female Family Doctor: Miscellaneous Physician Order #: [id number] Dictating Doctor: Owen Clements MD Admit Date: [...] are not the intended recipient, please contact [facility] at [phone] and destroy all copies of the original. Normal [facility] Diff Autoon 01-22-2022 Baso Absolute 0.0 x10*3/mcL Normal 0.0-0.2 [facility] Comment on above: Performed By: #### . Automated Diff #### [address] [address] Basophils/100 WBC (Bld) 0.5 % Normal 0.0-1.5 [facility] Comment on above: Performed By: #### . Automated Diff #### [address] [address] Eos Absolute 0.0 x10*3/mcL Normal 0.0-0.4 [facility] Comment on above: Performed By: #### . Automated Diff #### [address] [address] Eosinophils/100 WBC (Bld) 0.3 % Normal 0.0-5.4 [facility] Comment on above: Performed By: #### . Automated Diff #### [address] [address] Lymph Absolute 1.8 x10*3/mcL Normal 1.0-4.[address] [facility] Comment on above: Performed By: #### . Automated Diff #### [address] [address] Lymphocytes/100 WBC (Bld) 29.7 % Normal 27.2-40.8 [facility] Comment on above: Performed By: #### . Automated Diff #### [address] [address] Stephenson Absolute 0.5 x10*3/mcL Normal 0.1-1.1 [facility] Comment on above: Performed By: #### . Automated Diff #### [address] [address] Monocytes/100 WBC (Bld) 8.9 % Normal 3.7-11.9 [facility] Comment on above: Performed By: #### . Automated Diff #### [address] [address] Neutro Absolute 3.6 x10*3/mcL Normal 1.8-7.7 [facility] Comment on above: Performed By: #### . Automated Diff #### [place] [address] Neutro Auto 60.6 % Normal 47.2-70.8 [facility] Comment on above: Performed By: #### . Automated Diff #### [address] [address] ED Clinical Summaryon 2021 ED Clinical Summary [address] [address] ED Clinical Summary Person Information Name: Nicki Oviedo [facility] Age: 46 Years : 1975 Sex: Female PCP: Marital Status: Single Phone: Race: White Ethnicity: Not or Language: Algerian Visit Reason: Abdominal pain; Medical problem Acuity: 3 Enc Type: Emergency Med Service: Emergency Medicine Arrival: 01/21/2022 23:01:44 Discharge: 01/22/2022 00:21:00 LOS: 000 01:20 Checkin: 01/21/2022 23:01:44 Checkout: 01/22/2022 00:21:00 Dispo Type: Home or Self Care Address: [address] [place] [address] Provider Notes: History of Present Illness Patient presents to the ED with complaints of pain in the R mid lateral abdomen today.? She notes the pain radiates the R upper and lower abdomen.? She notes occasional loose stools.? She states these Sx are similar to those experienced with prior flares of her Crohn's disease.? 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 She states she had a colonoscopy [...] range between ( 27.2 and 40.8 ) Stephenson Auto: 8.9 % -- Normal range between [...] range between ( 36.0 and 46.0 ) Stephenson Absolute: 0.5 x10 MCH: 28.5 pg -- [...] ALT: 34 (more content not included)... Normal [facility] ED Note-Physicianon 01-23-20 ED Note-Physician Chief Complaint abdominal pain History of Present Illness Patient presents to the ED with complaints of pain in the R mid lateral abdomen today. She notes the pain radiates the R upper and lower abdomen. She notes occasional loose stools. She states these Sx are similar to those experienced with prior flares of her Crohn's disease. 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 She states she had a colonoscopy [...] tabs, 0 Refill(s), 01/26/22 23:59:00 EDT, Pharmacy: [facility][id number] - ED Professional Level 4 Communication Order [...] 12.7 11/08/21 12.0 Hct 01/21/22 23:25 38.1 05/24/22 36.1 MCV 01/21/22 23:25 85.8 11/08/21 85.7 MCH 01/21/22 23:25 28.5 11/08/21 28.5 MCHC 01/21/22 23:25 33.3 11/08/21 33.3 RDW 01/21/22 23:25 14.3 11/08/21 15.3 High Platelet 01/21/22 23:25 276 11/08/21 212 Mean Platelet Volume 01/21/22 23:25 7.3 Low 11/08/21 7.0 Neutro Auto 01/21/22 23:25 60.6 11/08/21 65.6 Lymph Auto 01/21/22 23:25 29.7 11/08/21 21.6 Low Stephenson Auto 01/21/22 23:25 8.9 11/08/21 11.2 Eos Auto 01/21/22 23:25 0.3 11/08/21 1.1 Basophil Auto 01/21/22 23:25 0.5 11/08/21 0.5 Neutro Absolute 01/21/22 23:25 3.6 11/08/21 3.0 Lymph Absolute 01/21/22 23:25 1.8 11/08/21 1.0 Stephenson Absolute 01/21/22 23:25 0.5 11/08/21 0.5 Eos Absolute 01/21/22 23:25 0.0 11/08/21 0.0 Baso Absolute 01/21/22 23:25 0.0 11/08/21 0.0 Testing LATEST RESULTS HISTORICAL RESU (more content not included)... Normal [facility] LIPASEon 01-22-2022 Lipase [Catalytic activity/Vol] 119 U/L Normal 114-286 [facility] Comment on above: Performed By: #### M PC, LIP #### CLIN[facility] LABORATORY [address] [address] [facility] Lipaseon 01-22-2022 Lipase Lvl 30 IU/L Normal 11-82 [facility] Comment on above: Performed By: #### L IP #### [address] [address] Microscopic observation LM N om (Urine sed)on 01-22-2022 Bacteria LM Ql (Urine sed) None Seen Normal Trace [facility] Comment on above: Performed By: #### 1 5-8, 53484-4 ####CLINICAL LABORATORY[address] Epithelial cells Ql (U) 5-10 Normal 0-5 [facility] Comment on above: Performed By: #### 1 5-8, 05966-9 ####CL[facility] LABORATORY[address] RBC Ql (U) None Seen Normal 0-3 [facility] Comment on above: Performed By: #### 1 5-8, 37942-7 ####[facility]ATORY[address] WBC Visual Ql (U) 0-5 Normal 0-5 [facility] Comment on above: Performed By: #### 1 2234-, 58636-8 ####[facility]ATORY[address] Physician Documentationon Physician Documentation [place] [address] Medical Records Department ED Physician Documentation Name: NICKI OVIEDO Pt Type: DEP ER MR #: [id number] Room AND Bed: Date of : 1975 [...] 01/22/22 02:56 Dose: 25 mg Documented By: SLF Methylprednisolone Sodium Succinate (Methylprednisolone So (more content not included)... Normal [facility] UA w Culture if Ind Rosa Elena Color (U) Yellow Normal [facility] Comment on above: Performed By: #### E GFR #### [facility] [address] [place] [address] Glucose (U) [Mass/Vol] Negative Normal Negative [facility] Comment on above: Performed By: #### E GFR #### [facility] [address] [place] [address], [place] [address] Ketones Ql (U) Negative Normal Negative [facility] Comment on above: Performed By: #### E GFR #### [address] [place] [address] UA Blood Negative Normal Negative [facility] Comment on above: Performed By: #### E GFR #### [address] [place] [address] UA Clarity Clear Normal [facility] Comment on above: Performed By: #### E GFR #### [address] [address] UA Leukocyte Esterase Negative Normal Negative [place] Comment on above: Performed By: #### E GFR #### [address] [address] UA Nitrite Negative Normal Negative [facility] Comment on above: Performed By: #### E GFR #### [address] [address] UA pH 5.5 Normal 4.5 - 7.8 [facility] Comment on above: Performed By: #### E GFR #### [address] [place] [address] UA Protein Negative Normal Negative [facility] Comment on above: Performed By: #### E GFR #### [address] [address] UA Source Clean Catch Normal [facility] Comment on above: Performed By: #### E GFR #### [address] [address] UA Spec Grav 1.015 Normal 1.003-1.035 [facility] Comment on above: Performed By: #### E GFR #### [address] [place] [address] UA Urobilinogen 0.2 mg/dL Normal 0.2 - 1.0 [facility] Comment on above: Performed By: #### E GFR #### [facility] [address] [place] [address] Urobilinogen (U) [Mass/Vol] Negative Normal Negative [facility] Comment on above: Performed By: #### E GFR #### [address] [address] Urinalysis dipstick panel Au to test strip (U)on 01-22-2022 Appearance (U) CLEAR Normal Clear [facility] Comment on above: Performed By: #### 1 2235-01, 35276-9 ####[address] [address] [facility] Bilirubin Ql (U) Negative Normal Negative [facility] Comment on above: Performed By: #### 1 2235-01, 84364-0 ####[address] [address] [facility] Color (U) Light Yellow Normal Yellow [facility] Comment on above: Performed By: #### 1 2235-01, 66894-9 ####[address] [address] [facility] Glucose Ql (U) Negative Normal Negative [facility] Comment on above: Performed By: #### 1 2235-01, 63766-9 ####[address] [address] [facility] Ketones Auto test strip Ql (U) Negative Normal Negative [facility] Comment on above: Performed By: #### 1 2235-01, 89602-4 ####[address] [address] [facility] Leukocyte esterase Auto test strip Ql (U) TRACE Abnormal Negative [facility] Comment on above: Performed By: #### 1 2235-01, 04656-0 ####[address] [address] [facility] Nitrate Ql (U) Negative Normal Negative [facility] Comment on above: Performed By: #### 1 2235-01, 71607-7 ####[address] [address] [facility] pH (U) 6.0 [pH] Normal 5.0-8.5 [facility] Comment on above: Performed By: #### 1 2235-01, 48868-2 ####[address] [address] [facility] Protein Ql (U) Negative Normal Negative [facility] Comment on above: Performed By: #### 1 2235-01, 84946-1 ####[address] [address] [facility] RBC Ql (U) Negative Normal Negative [facility] Comment on above: Performed By: #### 1 2235-01, 57012-5 ####[address] [address] [facility] SPECIFIC GRAVITY,URINE 1.015 Normal 1.005-1.030 [facility] Comment on above: Performed By: #### 1 2235-01, 41342-8 ####[address] [address] Urinalysis dipstick W Reflex Culture panel (U) Normal [facility] Comment on above: Result Comment: IF T HE DIPSTICK NITRITE IS POSITIVE AND/OR GREATER THAN 5 WBC'S ARE SEEN MICROSCOPICALLY, THEN A URINE CULTURE IS ORDERED AND REPORTED Performed By: #### 1 2235-01, 48064-7 ####[address] [address] [facility] Urobilinogen Ql (U) 0.2 Normal [facility] Comment on above: Performed By: #### 1 2235-01, 93583-5 ####[place] [address] [facility] CBC AND DIFFERENTIALon 12-16 % AUTOMATED IMMATURE GRAN 0.5 % Normal 0.0 - 0.9 [facility] Comment on above: Result Comment: Renita ture Granulocyte Count (IG) includes promyelocytes, myelocytes and metamyelocytes but does not include bands. Percent differential counts (%) should be interpreted in the context of the absolute cell counts (cells/L). Performed By: #### L ACT #### [address] [id number] Basophils (Bld) [#/Vol] 0.02 10*3/uL Normal 0.00 - 0.1 0 [facility] Comment on above: Performed By: #### L ACT #### [address] [id number] Basophils/100 WBC (Bld) 0.2 % Normal 0.0 - 2.0 [facility] Comment on above: Performed By: #### L ACT #### [address] [id number] Erythrocyte distribution width (RBC) [Ratio] 14.4 % Normal 11.5 - 14.5 [facility] Comment on above: Performed By: #### L ACT #### [address] [address] Hematocrit (Bld) [Volume fraction] 39.7 % Normal 36.0 - 46.0 [facility] Comment on above: Performed By: #### L ACT #### [address] [id number] Hemoglobin (Bld) [Mass/Vol] 13.1 g/dL Normal 12.0 - 16.0 [facility] Comment on above: Performed By: #### L ACT #### [address] [id number] Lymphocytes (Bld) [#/Vol] 1.42 10*3/uL Normal 1.20 - 4.80 [facility] Comment on above: Performed By: #### L ACT #### [address] [address] Lymphocytes/100 WBC (Bld) 15.3 % Normal 13.0 - 44.0 [facility] Comment on above: Performed By: #### L ACT #### [address] [id number] MCHC (RBC) [Mass/Vol] 33.0 g/dL Normal 32.0 - 36.0 [facility] Comment on above: Performed By: #### L ACT #### [address] [id number] MCV (RBC) [Entitic vol] 85 fL Normal 80 - 100 U [facility] Comment on above: Performed By: #### L ACT #### [address] [id number] Monocytes (Bld) [#/Vol] 0.74 10*3/uL Normal 0.10 - 1.0 0 [facility] Comment on above: Performed By: #### L ACT #### [address] [id number] Monocytes/100 WBC (Bld) 8.0 % Normal 2.0 - 10.0 [facility] Comment on above: Performed By: #### L ACT #### [address] [address] Neutrophils (Bld) [#/Vol] 7.04 10*3/uL Normal 1.20 - 7.70 [facility] Comment on above: Performed By: #### L ACT #### [address] [address] Neutrophils/100 WBC (Bld) 76.0 % Normal 40.0 - 80.0 [facility] Comment on above: Performed By: #### L ACT #### [address] [id number] Platelets (Bld) [#/Vol] 309 10*3/uL Normal 150 - 450 [facility] Comment on above: Performed By: #### L ACT #### [address] [id number] RBC 4.68 x10E12/L Normal 4.00 - 5.20 [facility] Comment on above: Performed By: #### L ACT #### [address] [id number] WBC (Bld) [#/Vol] 9.3 10*3/uL Normal 4.4 - 11.3 [facility] Comment on above: Performed By: #### L ACT #### [address] [id number] COMPREHENSIVE PANELon 2021 Albumin [Mass/Vol] 4.1 g/dL Normal 3.4 - 5.0 [facility] Comment on above: Performed By: #### L ACT #### [address] [id number] ALP [Catalytic activity/Vol] 53 U/L Normal 33 - 110 [facility] Comment on above: Performed By: #### L ACT #### [address] [id number] ALT [Catalytic activity/Vol] 26 U/L Normal 7 - 45 [facility] Comment on above: Result Comment: Deisy ents treated with Sulfasalazine may generate falsely decreased results for ALT. Performed By: #### L ACT #### [address] [id number] Anion gap [Moles/Vol] 12 mmol/L Normal 10 - 20 [facility] Comment on above: Performed By: #### L ACT #### [address] [id number] AST [Catalytic activity/Vol] 13 U/L Normal 9 - 39 [facility] Comment on above: Performed By: #### L ACT #### [address] [address] Bilirubin [Mass/Vol] 0.6 mg/dL Normal 0.0 - 1.2 [facility] Comment on above: Performed By: #### L ACT #### [address] [id number] Calcium [Mass/Vol] 8.9 mg/dL Normal 8.6 - 10.3 [facility] Comment on above: Performed By: #### L ACT #### [address] [id number] Chloride [Moles/Vol] 102 mmol/L Normal 98 - 107 [facility] Comment on above: Performed By: #### L ACT #### [address] [address] Creatinine [Mass/Vol] 0.89 mg/dL Normal 0.50 - 1.05 [facility] Comment on above: Performed By: #### L ACT #### [address] [id number] GFR/1.73 sq M.predicted among non-blacks MDRD (S/P/Bld) [Vol rate/Area] 82 mL/min/{1.73_m2} Normal >90 [facility] Comment on above: Result Comment: CALC ULATIONS OF ESTIMATED GFR ARE PERFORMED USING THE 2020 CKD-EPI STUDY REFIT EQUATION WITHOUT THE RACE VARIABLE FOR THE IDMS-TRACEABLE CREATININE METHODS. https://jasn.asnjournals.org/content/early//ASN.2020 465061 Performed By: #### L ACT #### [address] [id number] Glucose [Mass/Vol] 141 mg/dL High 74 - 99 [facility] Comment on above: Performed By: #### L ACT #### [address] [id number] HCO3 (Bld) [Moles/Vol] 26 mmol/L Normal 21 - 32 [facility] Comment on above: Performed By: #### L ACT #### [address] [id number] Potassium [Moles/Vol] 3.8 mmol/L Normal 3.5 - 5.3 [facility] Comment on above: Performed By: #### L ACT #### [address] [id number] Protein [Mass/Vol] 7.0 g/dL Normal 6.4 - 8.2 [facility] Comment on above: Performed By: #### L ACT #### [address] [id number] Sodium [Moles/Vol] 136 mmol/L Normal 136 - 145 [facility] Comment on above: Performed By: #### L ACT #### [address] [id number] Urea nitrogen [Mass/Vol] 15 mg/dL Normal 6 - 23 [facility] Comment on above: Performed By: #### L ACT #### [address] [id number] CORONAVIRUS 2019 BY PCRon SARS-CoV-2 (COVID-19) RNA MIGUEL+probe Ql (Unsp spec) Not detected Normal Not Detected [facility] Comment on above: Result Comment: . This test has received [facility] Emergency Use Authorization (EUA) and has been verified by [facility]. This test is only authorized for the duration of time that circumstances exist to justify the authorization of the emergency use of in vitro diagnostic tests for the detection of SARS-CoV-2 virus and/or diagnosis of COVID-19 infection under section 564(b)(1) of the Act, 21 U.S.C. 360bbb-3(b)(1), unless the authorization is terminated or revoked sooner. [facility] is certified under CLIA-88 as qualified to perform high complexity testing. Testing is performed in the [facility] laboratory located at [address] [place] [address]. SARS-CoV-2/Flu/RSV Multiplex Test: Fact sheet for providers: https://www.fda.gov/media/173867/download Fact sheet for patients: https://www.fda.gov/media/048582/download Performed By: #### L ACT #### [address] [id number] Lab Specimen Source Nasal, Nasopharyngeal Normal [facility] Comment on above: Performed By: #### L ACT #### [address] [id number] ABDOMEN AND PELVIS W IV C ONTRASTon 12-16-2021 CT ABDOMEN AND PELVIS W IV CONTRAST STUDY: CT Abdomen and Pelvis with IV Contrast; 12/16/2021, 2:10 AM. INDICATION: Generalized abdominal pain with nausea, vomiting, and diarrhea. Additional History: Right oophorectomy, cholecystectomy, appendectomy, hypertension, pancreatitis, endometriosis. COMPARISON: CT abdomen and pelvis 09/15/2021 (imaging only; report unavailable), CT abdomen and pelvis 06/08/2021. ACCESSION NUMBER(S): [id number] ORDERING CLINICIAN: MARTY NEVES PA-C TECHNIQUE: CT [...] Electronically signed by: YOON JOYCE MD Normal [facility] Covid 19 Resultson 2 SARS-CoV-2 (COVID-19) [...] You may also be contacted by the [facility] to see if any of your close [...] or Naproxen (Aleve) can also be used. Rofl-zvy-thgqwvt cough and cold medicines can be used according to the instructions on the package. Some hpjb-kji-cithzmi medicines also contain acetaminophen. Make sure you [...] water are not available, use alcohol-based hand cascade operator. Avoid touching your eyes, nose, and mouth [...] 24 gloria (more content not included)... Normal [facility] Electrocardiogram 12 Leadon 12-16-2021 Electrocardiogram 12 Lead Ventricular Rate 79 Atrial Rate 79 P-R Interval 160 QRS Duration 92 Q-T Interval 382 QTC Calculation(Bazett) 438 P [place] 54 R [place] 24 T [place] 67 QRS Count 13 Q Onset 210 P Onset 130 P Offset 185 T Offset 401 QTC Fredericia 418 Diagnosis Class Borderline Abnormal Diagnosis Sinus rhythm with premature atrial complexes Otherwise normal ECG No previous ECGs available Confirmed by Deidra Woods ([id number]) on 12/16/2021 2:53:21 PM Normal [facility] (formerly [facility])[3] HCG,SERUM QUALITATIVEon 07 HCG,SERUM QUALITATIVE Negative Normal Negative [facility] Comment on above: Performed By: #### L ACT #### [address] [id number] LACTATEon 12-16-2021 Lactate [Moles/Vol] 1.3 mmol/L Normal 0.4 - 2.0 [facility] Comment on above: Result Comment: Delicia puncture immediately after or during the administration of Metamizole may lead to falsely low results. Testing should be performed immediately prior to Metamizole dosing. Performed By: #### L ACT #### [address] [id number] LIPASEon 12-16-2021 Lipase [Catalytic activity/Vol] 119 U/L High 9 - 82 [facility] Comment on above: Result Comment: Delicia puncture immediately after or during the administration of Metamizole may lead to falsely low results. Testing should be performed immediately prior to Metamizole dosing. P-gmvgdz-j-benzoquinone imine (metabolite of Acetaminophen) will generate erroneously low results in samples for patients that have taken toxic doses of acetaminophen. Performed By: #### L ACT #### [address] [id number] Provider Note - ED Care Kendrick sitionon [...] Reference Range: STRAW,YELLOW Appearance, Urine CLEAR Specific [place], Urine <1.005 A pH, Urine 5.5 Protein, [...] Authorization (EUA) and has been verified by [facility]. This test is only authorized for the duration of time that circumsta Lactate, Level 16-Dec-2021 00:46:00 ResultValue Lactate, Level 1.3 Lipase, Serum 16-Dec-2021 00:46:00 ResultValue Lipase, Serum 119 H HCG, Serum 16-Dec-2021 00:46:00 ResultValue HCG, Serum NEGATIVE Troponin I, High Sensitivity 16-Dec-2021 00:46:00 ResultValue Troponin I, High Sensitivity 3 VITAL SIGNS: T PRBP SpO2O2(LPM) %FiO2 Method 15-Dec-2021 22:09:[id number]/ 105 95 room air, no respiratory support [...] medication which she is supplied by her MEDICAL TRANSCRIBER for multiple pelvic issues. Patient is not [...] Updated: 16-Dec-2021 04:05 by Joseph Donovan (PAC) [facility] Provider Note - ED v3on 07-0 [...] she was recently in the hospital in [place] where she is from and was diagnosed [...] respiratory distr (more content not included)... Normal [facility] TROPONIN I, HIGH SENSITIVITY on 12-16-2021 TROPONIN I, HIGH SENSITIVITY 3 ng/L Normal 0 - 13 [facility] Comment on above: Result Comment: . [...] performed using a different testing methodology at [facility] than at other [facility]. Direct result comparisons should only be made within the same method. Performed By: #### T [facility] #### [address] [id number] Triage - EDon 12-16-2021 Triage - ED [...] Accompanied By: self Language: Spoken Language Preferred: Algerian Reading Language Preferred: Algerian Nurse Intern Requested: no layer up was requested CHIEF COMPLAINT NICKI OVIEDO is a Female patient with a chief complaint of abdominal pain ( I live in [place] I was hospitalized for pancreatitis and Crohn [...] 22:14 by Vonda Whiting (STAFF N) Normal [facility] URINALYSIS WITH CULTURE IF I NDICATEDon 12-16-2021 Appearance (U) CLEAR Normal CLEAR [facility] Comment on above: Performed By: #### L ACT #### [address] [id number] Bilirubin Ql (U) Negative Normal NEGATIVE [facility] Comment on above: Performed By: #### L ACT #### [address] [id number] Color (U) YELLOW Normal STRAW,YELLOW [facility] Comment on above: Performed By: #### L ACT #### [address] [id number] Glucose Ql (U) Negative Normal NEGATIVE [facility] Comment on above: Performed By: #### L ACT #### [address] [id number] Hemoglobin Ql (U) Negative Normal NEGATIVE [facility] Comment on above: Performed By: #### L ACT #### [address] [id number] Ketones Ql (U) Negative Normal NEGATIVE [facility] Comment on above: Performed By: #### L ACT #### [address] [id number] Leukocyte esterase Test strip Ql (U) Negative Normal NEGATIVE [facility] Comment on above: Performed By: #### L ACT #### [address] [id number] Nitrite Ql (U) Negative Normal NEGATIVE [facility] Comment on above: Performed By: #### L ACT #### [address] [id number] pH (U) 5.5 [pH] Normal 5.0 - 8.0 [facility] Comment on above: Performed By: #### L ACT #### [address] [id number] Protein Ql (U) Negative Normal NEGATIVE [facility] Comment on above: Performed By: #### L ACT #### [address] [id number] Specific gravity (U) [Rel density] <1.005 Abnormal 1.005 - 1.035 [facility] Comment on above: Performed By: #### L ACT #### [address] [id number] Urobilinogen (U) [Mass/Vol] mg/dL Normal 0.0 - 1.9 [facility] Comment on above: Performed By: #### L ACT #### [address] [id number] Albumin [Mass/volume] in Ser um or PlasmaOrdered By: Myles Felix on 12-15-2021 Albumin [Mass/Vol] 3.4 g/dL 3.2-5.5 [facility] Automated erythrocytes count in urine sediment (number/area)Ordered By: Myles Felix on 12-15-2021 RBC Auto (Urine sed) [#/Area] 5-9 [HPF] [facility] Automated leukocytes count i n urine sediment (number/area)Ordered By: Myles Felix on 12-15-2021 WBC Auto (Urine sed) [#/Area] 1-2 [HPF] [facility] Basophils Auto (Bld) [#/Vol] Ordered By: Myles Felix on 12-15-2021 Basophils (Bld) [#/Vol] 0.0 10*3/uL 0.0-0.2 [facility] Basophils/100 WBC Auto (Bld) Ordered By: Myles Felix on 12-15-2021 Basophils/100 WBC (Bld) 0.2 % [facility] Bilirubin Test strip Ql (U)O rdered By: Myles Felix on 12-15-2021 Bilirubin Ql (U) Negative Negative [facility] Blood hemoglobin measurement (mass/volume)Ordered By: Myles Felix on 12-15-2021 Hemoglobin (Bld) [Mass/Vol] 13.3 g/dL 11.8-15.4 [facility] Blood leukocytes automated c ount (number/volume)Ordered By: Myles Felix on 12-15-2021 WBC (Bld) [#/Vol] 8.3 10*3/uL 4.5-11.0 [facility] CT abdomen pelvis wo conon 0 12-15-2021 CT abdomen pelvis wo con [facility] [place] [address] CT Scan Report Signed Patient: Nicki Oviedo MR#: [id number] : 1975 Acct:[id number] Age/Sex: 46 / F ADM Date: 12/15/21 Loc: ER Room: Type: [facility] ER Attending Dr: Copies to: Myles Felix DO Ordering Provider: Myles M Elvira, DO Date of Service: 12/15/21 CT/CT abdomen [...] Jessica Roldan M.D.12/15/2021 6:02 PM Dictation Location: [place] [address] Transcribed By: [facility] 12/15/211801 Dictated By: Jessica Roldan MD 12/15/211752 Signed By: 12/15/211801 Normal [facility] Color Auto (U)Ordered By: Naresh Felix on 12-15-2021 Color (U) Yellow Yellow [facility] Complete Blood Count Auto Di ffon 12-15-2021 Basophils (Bld) [#/Vol] 0.0 10*3/uL Normal 0.0-0.2 [facility] Comment on above: Result Comment: PERF ORMED BY: [place] [address] PATHOLOGIST HEALTHCARE RECEPTIONIST KIERRA BROOKS M.D. Performed By: #### C BC, CMP, LIPASE #### [address] Basophils/100 WBC (Bld) 0.2 % Normal . [facility] Comment on above: Performed By: #### C BC, CMP, LIPASE #### [address] Eosinophils (Bld) [#/Vol] 0.0 10*3/uL Normal 0.0-0.45 [facility] Comment on above: Performed By: #### C BC, CMP, LIPASE #### [address] Eosinophils/100 WBC (Bld) 0.1 % Normal . [facility] Comment on above: Performed By: #### C BC, CMP, LIPASE #### [address] Erythrocyte distribution width (RBC) [Ratio] 15.8 % High 11.9-15.3 [facility] Comment on above: Performed By: #### C BC, CMP, LIPASE #### [address] Hematocrit (Bld) [Volume fraction] 40.2 % Normal 34.0-46.4 [facility] Comment on above: Performed By: #### C BC, CMP, LIPASE #### [address] Hemoglobin (Bld) [Mass/Vol] 13.3 g/dL Normal 11.8-15.4 [facility] Comment on above: Performed By: #### C BC, CMP, LIPASE #### [place] [address] [place] Lymphocytes (Bld) [#/Vol] 1.0 10*3/uL Normal 1.00-4.8 [facility] Comment on above: Performed By: #### C BC, CMP, LIPASE #### [address] Lymphocytes/100 WBC (Bld) 12.6 % Normal . [facility] Comment on above: Performed By: #### C BC, CMP, LIPASE #### [address] MCH (RBC) [Entitic mass] 28.8 pg Normal 24.7-34.3 [facility] Comment on above: Performed By: #### C BC, CMP, LIPASE #### [address] MCV (RBC) [Entitic vol] 86.9 fL Normal 80-100 [facility] Comment on above: Performed By: #### C BC, CMP, LIPASE #### [address] Mean Corpuscular HGB Conc 33.1 g/dL Normal 32.0-35.0 [facility] Comment on above: Performed By: #### C BC, CMP, LIPASE #### [address] Monocytes (Bld) [#/Vol] 0.6 10*3/uL Normal 0.0-0.8 [facility] Comment on above: Performed By: #### C BC, CMP, LIPASE #### [address] Monocytes/100 WBC (Bld) 6.8 % Normal . [facility] Comment on above: Performed By: #### C BC, CMP, LIPASE #### [address] Neutrophils (Bld) [#/Vol] 6.7 10*3/uL Normal 1.8-7.7 [facility] Comment on above: Performed By: #### C BC, CMP, LIPASE #### [address] [place] [address] [place] Neutrophils/100 WBC (Bld) 80.3 % Normal . [facility] Comment on above: Performed By: #### C BC, CMP, LIPASE #### [facility] [address] Nucleated RBC/100 WBC (Bld) [Ratio] 0.0 % Normal 0-0.5 [facility] Comment on above: Performed By: #### C BC, CMP, LIPASE #### [facility] [address] Platelet mean volume (Bld) [Entitic vol] 7.5 fL Normal 6.3-10.7 [facility] Comment on above: Performed By: #### C BC, CMP, LIPASE #### [facility] [address] Platelets (Bld) [#/Vol] 321 10*3/uL Normal 150-450 [facility] Comment on above: Performed By: #### C BC, CMP, LIPASE #### [address] RBC (Bld) [#/Vol] 4.62 10*6/uL Normal 3.60-5.00 [facility] Comment on above: Performed By: #### C BC, CMP, LIPASE #### [address] WBC (Bld) [#/Vol] 8.3 10*3/uL Normal 4.5-11.0 [facility] Comment on above: Performed By: #### C BC, CMP, LIPASE #### [address] Comprehensive Metabolic Pane johan 12-15-2021 Albumin [Mass/Vol] 3.4 g/dL Normal 3.2-5.5 [facility] Comment on above: Performed By: #### C BC, CMP, LIPASE #### [address] Albumin/Globulin [Mass ratio] 1.0 {ratio} Normal [facility] Comment on above: Performed By: #### C BC, CMP, LIPASE #### [facility] [address] [place] [address] [place] ALP [Catalytic activity/Vol] 54 U/L Normal 32-92 [facility] Comment on above: Performed By: #### C BC, CMP, LIPASE #### [facility] [address] [place] [address] [place] ALT [Catalytic activity/Vol] 32 U/L Normal 10-60 [facility] Comment on above: Performed By: #### C BC, CMP, LIPASE #### [facility] [address] AST [Catalytic activity/Vol] 20 U/L Normal 10-42 [facility] Comment on above: Performed By: #### C BC, CMP, LIPASE #### [facility] [address] Bilirubin [Mass/Vol] 0.5 mg/dL Normal 0.3-1.2 [facility] Comment on above: Performed By: #### C BC, CMP, LIPASE #### [facility] [address] [place] [address] [place] Calcium [Mass/Vol] 8.9 mg/dL Normal 8.2-10.2 [facility] Comment on above: Performed By: #### C BC, CMP, LIPASE #### [facility] [address] [place] [address] [place] Chloride [Moles/Vol] 97 mmol/L Normal 95-114 [facility] Comment on above: Performed By: #### C BC, CMP, LIPASE #### [facility] [address] [place] [address] [place] CO2 [Moles/Vol] 24.8 mmol/L Normal 22.0-30.0 [facility] Comment on above: Performed By: #### C BC, CMP, LIPASE #### [facility] [address] Creatinine [Mass/Vol] 0.99 mg/dL Normal 0.44-1.[address] [facility] Comment on above: Performed By: #### C BC, CMP, LIPASE #### [facility] [address] Creatinine Clr Calc Pharmacy 105.78 [facility] Comment on above: Performed By: #### C BC, CMP, LIPASE #### [facility] [address] Estimated GFR ( Miranda > 60 [facility] Comment on above: Result Comment: GFR estimated reference range: According to KDOQI guidelines, <60 ml/min/1.73m2 is sufficient to diagnose a patient with chronic kidney disease. Performed By: #### C BC, CMP, LIPASE #### [address] Estimated GFR (Non- Am > 60 [facility] Comment on above: Performed By: #### C BC, CMP, LIPASE #### [address] Globulin (S) [Mass/Vol] 3.3 g/dL Normal [facility] Comment on above: Performed By: #### C BC, CMP, LIPASE #### [address] Glucose [Mass/Vol] 207 mg/dL High 70-100 [facility] Comment on above: Result Comment: [place] Glucose Reference Range is dependent on time and content of last meal. Glucose of more than 200 mg/dL in a nonstressed, ambulatory subject supports the diagnosis of Diabetes Mellitus. ADA recommended reference range Performed By: #### C BC, CMP, LIPASE #### [address] Potassium [Moles/Vol] 3.5 mmol/L Normal 3.5-5.[address] [facility] Comment on above: Performed By: #### C BC, CMP, LIPASE #### [address] Protein [Mass/Vol] 6.7 g/dL Normal 6.1-7.9 [facility] Comment on above: Performed By: #### C BC, CMP, LIPASE #### [address] [place] [address] [place] Sodium [Moles/Vol] 135 mmol/L Low 136-146 [facility] Comment on above: Performed By: #### C BC, CMP, LIPASE #### [facility] [address] [place] [id number] [place] Urea nitrogen [Mass/Vol] 15 mg/dL Normal 9-23 [facility] Comment on above: Performed By: #### C BC, CMP, LIPASE #### [facility] [address] [place] [address] [place] Creatinine and Glomerular fi ltration rate.predicted panel (S/P/Bld)Ordered By: Myles Felix on 12-15-2021 Creatinine [Mass/Vol] 0.99 mg/dL 0.44-1.[address] [facility] Dipstick and Microscopicon 0 12-15-2021 Appearance (U) Clear Normal Clear [facility] Comment on above: Order Comment: Name Collection Type:: Clean-Voided Midstream Performed By: #### A DDONUAPLUS #### [place] [address] [place] Bacteria,Urine None Seen Normal None Seen [facility] Comment on above: Order Comment: Name Collection Type:: Clean-Voided Midstream Performed By: #### A DDONUAPLUS #### [place] [address] [place] Bilirubin,Urine Negative Normal Negative [facility] Comment on above: Order Comment: Name Collection Type:: Clean-Voided Midstream Performed By: #### A DDONUAPLUS #### [place] [id number] [place] Color (U) Yellow Normal Yellow [facility] Comment on above: Order Comment: Name Collection Type:: Clean-Voided Midstream Performed By: #### A DDONUAPLUS #### [place] [id number] [place] Glucose Ql (U) Normal Normal Normal [facility] Comment on above: Order Comment: Name Collection Type:: Clean-Voided Midstream Performed By: #### A DDONUAPLUS #### [place] [address] [place] Hyaline Casts,Urine 0-8 Normal 0-8 [facility] Comment on above: Order Comment: Name Collection Type:: Clean-Voided Midstream Result Comment: PERF ORMED BY: [place] [address] PATHOLOGIST HEALTHCARE RECEPTIONIST KIERRA BROOKS M.D. Performed By: #### A DDONUAPLUS #### [address] Ketones Ql (U) Negative Normal Negative [facility] Comment on above: Order Comment: Name Collection Type:: Clean-Voided Midstream Performed By: #### A DDONUAPLUS #### [address] Leukocyte esterase Test strip Ql (U) Negative Normal Negative [facility] Comment on above: Order Comment: Name Collection Type:: Clean-Voided Midstream Performed By: #### A DDONUAPLUS #### [place] [address] [place] Nitrite,Urine Negative Normal Negative [facility] Comment on above: Order Comment: Name Collection Type:: Clean-Voided Midstream Performed By: #### A DDONUAPLUS #### [place] [address] [place] Occult Blood,Urine Trace High Negative [facility] Comment on above: Order Comment: Name Collection Type:: Clean-Voided Midstream Result Comment: PERF ORMED BY: [place] [address] PATHOLOGIST HEALTHCARE RECEPTIONIST KIERRA BROOKS M.D. Performed By: #### A DDONUAPLUS #### [place] [address] [place] pH (U) 6.0 [pH] Normal 5.0-9.0 [facility] Comment on above: Order Comment: Name Collection Type:: Clean-Voided Midstream Performed By: #### A DDONUAPLUS #### [address] [place] [address] [place] Protein,Urine Negative Normal Negative [facility] Comment on above: Order Comment: Name Collection Type:: Clean-Voided Midstream Performed By: #### A DDONUAPLUS #### [place] [address] [place] RBC,Urine 5-9 High 0-4 [facility] Comment on above: Order Comment: Name Collection Type:: Clean-Voided Midstream Performed By: #### A DDONUAPLUS #### [address] Specificy [place],Urine 1.014 Normal 1.001-1.030 [facility] Comment on above: Order Comment: Name Collection Type:: Clean-Voided Midstream Performed By: #### A DDONUAPLUS #### [place] [address] [place] Squamous Epithelial Cell,Urine 1-2 Normal 0-2 [facility] Comment on above: Order Comment: Name Collection Type:: Clean-Voided Midstream Performed By: #### A DDONUAPLUS #### [place] [address] [place] Urobilinogen,Urine Normal Normal Normal [facility] Comment on above: Order Comment: Name Collection Type:: Clean-Voided Midstream Performed By: #### A DDONUAPLUS #### [place] [address] [place] WBC,Urine 1-2 Normal 0-4 [facility] Comment on above: Order Comment: Name Collection Type:: Clean-Voided Midstream Performed By: #### A DDONUAPLUS #### [place] [address] [place] Eosinophils Auto (Bld) [#/Vo l]Ordered By: Myles Felix on 12-15-2021 Eosinophils (Bld) [#/Vol] 0.0 10*3/uL 0.0-0.45 [facility] Eosinophils/100 WBC Auto (Bl d)Ordered By: Myles Felix on 12-15-2021 Eosinophils/100 WBC (Bld) 0.1 % [facility] Erythrocyte distribution wid th Auto (RBC) [Ratio]Ordered By: Myles Felix on 12-15-2021 Erythrocyte distribution width (RBC) [Ratio] 15.8 % 11.9-15.3 [facility] Estimated glomerular filtrat ion rate (GFR) non- AmericanOrdered By: Myles Felix on 12-15-2021 GFR/1.73 sq M.predicted among non-blacks MDRD (S/P/Bld) [Vol rate/Area] > 60 mL/Min [facility] Globulin Calc (S) [Mass/Vol] Ordered By: Myles Felix on 12-15-2021 Globulin (S) [Mass/Vol] 3.3 g/dL [facility] HCG ( test) IA.rapi d Ql (U)Ordered By: Myles Felix on 12-15-2021 HCG ( test) Ql (U) Negative [facility] HCG,Urineon 12-15-2021 Beta HCG ( test) Ql (U) Negative Normal [facility] Comment on above: Result Comment: PERF ORMED BY: [place] [address] PATHOLOGIST HEALTHCARE RECEPTIONIST KIERRA BROOKS M.D. Performed By: #### U HCG #### [address] Hematocrit Auto (Bld) [Volum e fraction]Ordered By: Myles Felix on 12-15-2021 Hematocrit (Bld) [Volume fraction] 40.2 % 34.0-46.4 [facility] Ketones Auto test strip (U) [Mass/Vol]Ordered By: Myles Felix on 12-15-2021 Ketones (U) [Mass/Vol] Negative Negative [facility] - Chemistry and C hemistry - challengeOrdered By: Myles Felix on 12-15-2021 Lipase [Catalytic activity/Vol] 33.0 U/L 22-51 [facility] - Hematology and Cell countsOrdered By: Myles Felix on 12-15-2021 Nucleated RBC/100 WBC (Bld) [Ratio] 0.0 % 0-0.5 [facility] - UrinalysisOrder ed By: Myles Felix on 12-15-2021 Hyaline casts LM Ql (Urine sed) 0-8 [LPF] [facility] Lipaseon 12-15-2021 Lipase [Catalytic activity/Vol] 33.0 U/L Normal 22-51 [facility] Comment on above: Result Comment: PERF ORMED BY: [place] [address] PATHOLOGIST HEALTHCARE RECEPTIONIST KIERRA BROOKS M.D. Performed By: #### C BC, CMP, LIPASE #### [facility] [address] Lymphocytes Auto (Bld) [#/Vo l]Ordered By: Myles Felix on 12-15-2021 Lymphocytes (Bld) [#/Vol] 1.0 10*3/uL 1.00-4.8 [facility] Lymphocytes/100 WBC Auto (Bl d)Ordered By: Myles Felix on 12-15-2021 Lymphocytes/100 WBC (Bld) 12.6 % [facility] MCH Auto (RBC) [Entitic mass ]Ordered By: Myles Felix on 12-15-2021 MCH (RBC) [Entitic mass] 28.8 pg 24.7-34.3 [facility] MCHC Auto (RBC) [Mass/Vol]Or dered By: Myles Felix on 12-15-2021 MCHC (RBC) [Mass/Vol] 33.1 g/dL 32.0-35.[address] [facility] MCV Auto (RBC) [Entitic vol] Ordered By: Myles Felix on 12-15-2021 MCV (RBC) [Entitic vol] 86.9 fL 80-100 [facility] Monocytes Auto (Bld) [#/Vol] Ordered By: Myles Felix on 12-15-2021 Monocytes (Bld) [#/Vol] 0.6 10*3/uL 0.0-0.8 [facility] Monocytes/100 WBC Auto (Bld) Ordered By: Myles Felix on 12-15-2021 Monocytes/100 WBC (Bld) 6.8 % [facility] Neutrophils Auto (Bld) [#/Vo l]Ordered By: Myles Felix on 12-15-2021 Neutrophils (Bld) [#/Vol] 6.7 10*3/uL 1.8-7.7 [facility] Neutrophils/100 WBC Auto (Bl d)Ordered By: Myles Felix on 12-15-2021 Neutrophils/100 WBC (Bld) 80.3 % [facility] Nitrite Test strip Ql (U)Ord ered By: Myles Felix on 12-15-2021 Nitrite Ql (U) Negative Negative [facility] No Panel InformationOrdered By: Myles Felix on 12-15-2021 Estimated GFR () > 60 mL/Min [facility] Comment on above: GFR estimated refere nce range: According to KDOQI guidelines, <60 ml/min/1.73m2 is sufficient to diagnose a patient with chronic kidney disease. Pharmacy Creatinine Clearance (Chem 105.78 [facility] Platelet mean volume Auto (B ld) [Entitic vol]Ordered By: Myles Felix on 12-15-2021 Platelet mean volume (Bld) [Entitic vol] 7.5 fL 6.3-10.7 [facility] Platelets Auto (Bld) [#/Vol] Ordered By: Myles Felix on 12-15-2021 Platelets (Bld) [#/Vol] 321 10*3/uL 150-450 [facility] Protein Auto test strip (U) [Mass/Vol]Ordered By: Myles Felix on 12-15-2021 Protein (U) [Mass/Vol] Negative Negative [facility] Protein [Mass/volume] in Ser um or PlasmaOrdered By: Myles Felix on 12-15-2021 Protein [Mass/Vol] 6.7 g/dL 6.1-7.9 [facility] RBC Auto (Bld) [#/Vol]Ordere d By: Myles Felix on 12-15-2021 RBC (Bld) [#/Vol] 4.62 10*6/uL 3.60-5.00 [facility] Serum or plasma alanine villalobos otransferase measurement without P-5'-P (enzymatic activiOrdered By: Myles Felix on 12-15-2021 ALT No additional P-5'-P [Catalytic activity/Vol] 32 U/L 10-60 [facility] Serum or plasma albumin/glob ulin mass ratioOrdered By: Myles Felix on 12-15-2021 Albumin/Globulin [Mass ratio] 1.0 {ratio} [facility] Serum or plasma alkaline zan sphatase measurement (enzymatic activity/volume)Ordered By: Myles Felix on 12-15-2021 ALP [Catalytic activity/Vol] 54 U/L 32-92 [facility] Serum or plasma aspartate am inotransferase measurement (enzymatic activity/volume)Ordered By: Myles Felix on 12-15-2021 AST [Catalytic activity/Vol] 20 U/L 10-42 [facility] Serum or plasma calcium rosa m urement (mass/volume)Ordered By: Myles Felix on 12-15-2021 Calcium [Mass/Vol] 8.9 mg/dL 8.2-10.2 [facility] Serum or plasma chloride joshua surement (moles/volume)Ordered By: Myles Felix on 12-15-2021 Chloride [Moles/Vol] 97 mmol/L 95-114 [facility] Serum or plasma glucose rosa m urement (mass/volume)Ordered By: Myles Felix on 12-15-2021 Glucose [Mass/Vol] 207 mg/dL 70-100 [facility] Comment on above: ADA recommended refe rence range Random Glucose Reference Range is dependent on time and content of last meal. Glucose of more than 200 mg/dL in a nonstressed, ambulatory subject supports the diagnosis of Diabetes Mellitus. Serum or plasma potassium me asurement (moles/volume)Ordered By: Myles Felix on 12-15-2021 Potassium [Moles/Vol] 3.5 mmol/L 3.5-5.[address] [facility] Serum or plasma sodium measu rement (moles/volume)Ordered By: Myles Felix on 12-15-2021 Sodium [Moles/Vol] 135 mmol/L 136-146 [facility] Serum or plasma total biliru bin measurement (mass/volume)Ordered By: Myles Felix on 12-15-2021 Bilirubin [Mass/Vol] 0.5 mg/dL 0.3-1.2 [facility] Serum or plasma total carbon dioxide measurement (moles/volume)Ordered By: Myles Felix on 12-15-2021 CO2 [Moles/Vol] 24.8 mmol/L 22.0-30.0 [facility] Serum or plasma urea nitroge n measurement (mass/volume)Ordered By: Myles Felix on 12-15-2021 Urea nitrogen [Mass/Vol] 15 mg/dL 9-23 [facility] Specific gravity Auto test s trip (U) [Rel density]Ordered By: Myles Felix on 12-15-2021 Specific gravity (U) [Rel density] 1.014 1.001-1.030 [facility] Squamous epithelial cells de tection in urine sediment by light microscopyOrdered By: Myles Felix on 12-15-2021 Epithelial cells.squamous LM Ql (Urine sed) 1-2 [HPF] [facility] Urine bacteria detection by automated methodOrdered By: Myles Felix on 12-15-2021 Bacteria Auto Ql (U) None seen None Seen [facility] Urine clarity by refractomet ry automatedOrdered By: Myles Felix on 12-15-2021 Clarity Refractometry automated (U) Clear Clear [facility] Urine glucose measurement by automated test strip (mass/volume)Ordered By: Myles Felix on 12-15-2021 Glucose Auto test strip (U) [Mass/Vol] Normal mg/dL Normal [facility] Urine hemoglobin detection b y automated test stripOrdered By: Myles Felix on 12-15-2021 Hemoglobin Auto test strip Ql (U) Trace Negative [facility] Urine leukocyte esterase det ection by automated test stripOrdered By: Myles Felix on 12-15-2021 Leukocyte esterase Auto test strip Ql (U) Negative Negative [facility] Urobilinogen Auto test strip (U) [Mass/Vol]Ordered By: Myles Felix on 12-15-2021 Urobilinogen (U) [Mass/Vol] Normal mg/dL Normal [facility] pH Auto test strip (U)Ordere d By: Myles Felix on 12-15-2021 pH (U) 6.0 [pH] 5.0-9.0 [facility] AMYLASEon 12-02-2021 Amylase [Catalytic activity/Vol] 29 U/L Normal 25-115 [facility] Comment on above: Performed By: #### C MP, NICKI #### [facility] [address] [place] [address] Dr. Phi Souza CBC AUTO DIFFon 12-02-2021 BASO # 0.0 103/ul Normal 0.0-0.1 [facility] Comment on above: Performed By: #### C BC #### [facility] [address] [place] [address] Dr. Phi Souza Basophils/100 WBC (Bld) 0.8 % Normal 0.2-2.0 [facility] Comment on above: Performed By: #### C BC #### [facility] [address] [place] [address] Dr. Phi Souza EO # 0.1 103/ul Normal 0.0-0.7 [facility] Comment on above: Performed By: #### C BC #### [facility] [address] [place] [address] Dr. Phi Souza Eosinophils/100 WBC (Bld) 1.2 % Normal 0.9-7.0 [facility] Comment on above: Performed By: #### C BC #### [facility] [address] [place] [address] Dr. Phi Souza Erythrocyte distribution width (RBC) [Ratio] 13.6 % Normal 11.0-15.0 [facility] Comment on above: Performed By: #### C BC #### [facility] [address] [place] [address] Dr. Phi Souza Hematocrit (Bld) [Volume fraction] 38.4 % Normal 36.0-48.0 [facility] Comment on above: Performed By: #### C BC #### [facility] [address] [place] [address] Dr. Phi Souza Hemoglobin (Bld) [Mass/Vol] 12.9 g/dL Normal 12.0-16.0 [facility] Comment on above: Performed By: #### C BC #### [facility] [address] [place] [address] Dr. Phi Souza IG # 0.02 10e3/ul Normal 0.00-0.03 [facility] Comment on above: Performed By: #### C BC #### [facility] [address] [place] [address] Dr. Phi Souza IG % 0.4 % Normal 0.0-0.5 [facility] Comment on above: Performed By: #### C BC #### [facility] [address] [place] [address] Dr. Phi Souza LYMPH # 2.1 103/ul Normal 1.2-3.8 [facility] Comment on above: Performed By: #### C BC #### [facility] [address] [place] [address] Dr. Phi Souza Lymphocytes/100 WBC (Bld) 39.3 % Normal 20.5-60.0 [facility] Comment on above: Performed By: #### C BC #### [facility] [address] [place] [address] Dr. Phi Souza MANUAL DIFF REQ NO Normal [facility] Comment on above: Performed By: #### C BC #### [facility] [address] [place] [address] Dr. Phi Souza MCH (RBC) [Entitic mass] 28.5 pg Normal 26.7-34.0 [facility] Comment on above: Performed By: #### C BC #### [facility] [address] [place] [address] Dr. Phi Souza MCHC (RBC) [Mass/Vol] 33.6 g/dL Normal 29.9-35.2 [facility] Comment on above: Performed By: #### C BC #### [facility] [address] [place] [address] Dr. Phi Souza MCV (RBC) [Entitic vol] 85.0 fL Normal 81.0-99.0 [facility] Comment on above: Performed By: #### C BC #### [facility] [address] [place] [address] Dr. Phi Souza MONO # 0.6 103/ul Normal 0.3-0.8 [facility] Comment on above: Performed By: #### C BC #### [facility] [address] [place] [address] Dr. Phi Souza Monocytes/100 WBC (Bld) 11.1 % Normal 1.7-12.0 [facility] Comment on above: Performed By: #### C BC #### [facility] [address] [place] [address] Dr. Phi Souza NEUT # 2.5 103/ul Normal 1.4-6.5 [facility] Comment on above: Performed By: #### C BC #### [facility] [address] [place] [address] Dr. Phi Souza Neutrophils/100 WBC (Bld) 47.2 % Normal 43.0-75.0 [facility] Comment on above: Performed By: #### C BC #### [facility] [address] [place] [address] Dr. Phi Souza Platelet mean volume (Bld) [Entitic vol] 8.7 fL Critically low 9.5-13.5 [facility] Comment on above: Performed By: #### C BC #### [facility] [address] [place] [address] Dr. Phi Souza PLT 300 103/ul Normal 150-450 [facility] Comment on above: Performed By: #### C BC #### [facility] [address] [place] [address] Dr. Phi Souza RBC 4.52 106/ul Normal 4.20-5.40 [facility] Comment on above: Performed By: #### C BC #### [facility] [address] [place] [address] Dr. Phi Souza WBC 5.2 103/ul Normal 4.0-11.0 [facility] Comment on above: Performed By: #### C BC #### [facility] [address] [place] [address] Dr. Phi Souza PROF 14(COMP METB)on 022 Albumin [Mass/Vol] 3.3 g/dL Critically low 3.4-5.0 [facility] Comment on above: Performed By: #### C LORENA, NICKI ####[facility] [address] [place] [address]Dr. Phi Souza Albumin/Globulin [Mass ratio] 0.9 {ratio} Normal [facility] Comment on above: Performed By: #### C LORENA, NICKI ####[facility] [address] [place] [address]Dr. Phi Souza ALP [Catalytic activity/Vol] 68 U/L Normal 46-116 [facility] Comment on above: Performed By: #### C LORENA, NICKI ####[facility] [address] [place] [address]Dr. Phi Souza ALT [Catalytic activity/Vol] 36 U/L Normal 14-59 [facility] Comment on above: Performed By: #### C LORENA, NICKI ####[facility] [address] [place] [address]Dr. Phi Souza Anion gap [Moles/Vol] 9.8 mmol/L Normal [facility] Comment on above: Performed By: #### C LORENA, NICKI ####[facility] [address] [place] [address]Dr. Phi Souza AST [Catalytic activity/Vol] 16 U/L Normal 15-37 [facility] Comment on above: Performed By: #### C LORENA, NICKI ####[facility] [address] [place] [address]Dr. Phi Souza Bilirubin [Mass/Vol] 0.4 mg/dL Normal 0.2-1.0 [facility] Comment on above: Performed By: #### C LORENA, NICKI ####[facility] [address] [place] [address]Dr. Phi Souza Calcium [Mass/Vol] 9.0 mg/dL Normal 8.5-10.1 [facility] Comment on above: Performed By: #### C LORENA, NICKI ####[facility] [address] [place] [id number]. Phi Souza Chloride [Moles/Vol] 99 mmol/L Normal 98-107 [facility] Comment on above: Performed By: #### C MP, NICKI ####[facility] [address] [place] [id number]. Phi Souza CO2 [Moles/Vol] 28.4 mmol/L Normal 21.0-32.0 [facility] Comment on above: Performed By: #### C MP, NICKI ####[facility] [address] [place] [address]Dr. Phi Souza Creatinine [Mass/Vol] 0.96 mg/dL Normal 0.55-1.02 [facility] Comment on above: Performed By: #### C LORENA, NICKI ####[facility] [address] [place], [place] [address]Dr. Phi Souza EGFR-AF BAHRAINI >60 Normal >=60 [facility] Comment on above: Performed By: #### C LORENA, NICKI ####[facility] [address] [place], [place] [address]Dr. Phi Souza EGFR-NON AF BAHRAINI >60 Normal >=60 [facility] Comment on above: Performed By: #### C LORENA, NICKI ####[facility] [address] [place], [place] [address]Dr. Phi Souza Globulin (S) [Mass/Vol] 3.7 g/dL Normal [facility] Comment on above: Performed By: #### C LORENA, NICKI ####[facility] [address] [place], [place] [address]Dr. Phi Souza Glucose [Mass/Vol] 152 mg/dL Critically high 74-106 [facility] Comment on above: Performed By: #### C MP, NICKI ####[facility] [address] [place], [place] [address]Dr. Phi Souza Potassium [Moles/Vol] 3.2 mmol/L Critically low 3.5-5.1 [facility] Comment on above: Performed By: #### C MP, NICKI ####[facility] [address] [place], [place] [address]Wx. Phi Souza Protein [Mass/Vol] 7.0 g/dL Normal 6.4-8.2 [facility] Comment on above: Performed By: #### C MP, NICKI ####[facility] [address] [place], [place] [address]Kg. Phi Souza Sodium [Moles/Vol] 134 mmol/L Critically low 136-145 [facility] Comment on above: Performed By: #### C MP, NICKI ####[facility] [address] [place], [place] [address]Vw. Phi Souza Urea nitrogen [Mass/Vol] 13.0 mg/dL Normal 7.0-18.0 [facility] Comment on above: Performed By: #### C LORENA, NICKI ####[facility] [address] [place], [place] [address]Eq. Phi Souza Urea nitrogen/Creatinine [Mass ratio] 13.5 mg/mg Normal [facility] Comment on above: Performed By: #### C LORENA, NICKI ####[facility] [address] [place], [place] [address]Rx. Phi Souza XR ABD FLAT UP_PA Yung 12-02 [...] by: NARCISA CHEN Date: 2021-12-02 05:43 Normal [facility] .UA Microscp Aon 11-08-2021 UA Hyline Cast Qual 3-5 Normal Negative [facility] Comment on above: Performed By: #### E GFR #### [facility] [address] [place] [address] UA Mucus Present Abnormal Absent [facility] Comment on above: Performed By: #### E GFR #### [address] [address] UA RBC Quant 7 /HPF High 0-5 [facility] Comment on above: Performed By: #### E GFR #### [address] [address] UA Squepi Cells Quant 8 /HPF Normal 0-29 [place] Comment on above: Performed By: #### E GFR #### [address] [address] UA WBC Quant 2 /HPF Normal 0-5 [facility] Comment on above: Performed By: #### E GFR #### [address] [address] .eGFRon 11-08-2021 GFR/1.73 sq M.predicted MDRD (S/P/Bld) [Vol rate/Area] mL/min/{1.73_m2} Normal >=60 [facility] Comment on above: Result Comment: [facility] Laboratories have implemented the eGFR calculation approach [...] years Performed By: #### E GFR #### [address] [address] CBC w/ Diffon 11-08-2021 Erythrocyte distribution width (RBC) [Ratio] 15.3 % High 11.6-14.8 [facility] Comment on above: Performed By: #### E GFR #### [place] [address] Hematocrit (Bld) [Volume fraction] 36.1 % Normal 36.0-46.0 [facility] Comment on above: Performed By: #### E GFR #### [place] [address] Hemoglobin (Bld) [Mass/Vol] 12.0 g/dL Normal 12.0-16.0 [facility] Comment on above: Performed By: #### E GFR #### [place] [address] MCH (RBC) [Entitic mass] 28.5 pg Normal 27.0-35.0 [facility] Comment on above: Performed By: #### E GFR #### [place] [address] MCHC 33.3 % Normal 31.0-37.0 [facility] Comment on above: Performed By: #### E GFR #### [address] [address] MCV (RBC) [Entitic vol] 85.7 fL Normal 80.0-100.0 B [facility] Comment on above: Performed By: #### E GFR #### [place] [address] Platelet 212 x10*3/mcL Normal 150-350 [facility] Comment on above: Performed By: #### E GFR #### [address] [address] Platelet mean volume (Bld) [Entitic vol] 7.0 fL Normal 6.7-10.6 [facility] Comment on above: Performed By: #### E GFR #### [address] [address] RBC 4.22 x10*6/mcL Normal 3.80-5.20 [facility] Comment on above: Performed By: #### E GFR #### [address] [address] WBC 4.6 x10*3/mcL Normal 4.5-11.0 [facility] Comment on above: Performed By: #### E GFR #### [address] [address] CMPon 11-08-2021 Albumin [Mass/Vol] 3.3 g/dL Normal 3.2-4.9 [facility] Comment on above: Performed By: #### C OMP #### [address] [address] Albumin/Globulin [Mass ratio] 1.0 {ratio} Low 1.1-2.2 [facility] Comment on above: Performed By: #### C OMP #### [address] [address] Alk Phos 53 IU/L Normal 32-91 [facility] Comment on above: Performed By: #### C OMP #### [address] [address] ALT [Catalytic activity/Vol] 36 U/L Normal 14-54 [facility] Comment on above: Performed By: #### C OMP #### [address] [address] Anion gap [Moles/Vol] 12 mmol/L Normal 7-17 [place] Comment on above: Performed By: #### C OMP #### [address] [address] AST [Catalytic activity/Vol] 35 U/L Normal 15-41 [facility] Comment on above: Performed By: #### C OMP #### [address] [address] Bili Total 0.9 mg/dL Normal 0.3-1.2 [facility] Comment on above: Performed By: #### C OMP #### [address] [address] Calcium [Mass/Vol] 8.7 mg/dL Normal 8.5-10.3 [facility] Comment on above: Performed By: #### C OMP #### [address] [address] Chloride [Moles/Vol] 103 mmol/L Normal 98-[address] [facility] Comment on above: Performed By: #### C OMP #### [address] [address] CO2 [Moles/Vol] 27 mmol/L Normal 22-32 [facility] Comment on above: Performed By: #### C OMP #### [address] [address] Creatinine [Mass/Vol] 0.87 mg/dL Normal 0.44-1.03 [place] Comment on above: Performed By: #### C OMP #### [address] [address] Glucose [Mass/Vol] 146 mg/dL High 70-99 [facility] Comment on above: Performed By: #### C OMP #### [address] [address] Potassium [Moles/Vol] 3.5 mmol/L Normal 3.4-4.8 [place] Comment on above: Performed By: #### C OMP #### [address] [address] Protein [Mass/Vol] 6.5 g/dL Normal 6.5-8.1 [facility] Comment on above: Performed By: #### C OMP #### [address] [address] Sodium [Moles/Vol] 138 mmol/L Normal 133-142 [facility] Comment on above: Performed By: #### C OMP #### [address] [address] Urea nitrogen [Mass/Vol] 10 mg/dL Normal 8-26 [facility] Comment on above: Performed By: #### C OMP #### [address] [address] Urea nitrogen/Creatinine [Mass ratio] 11.5 mg/mg Normal 10.0-20.0 [facility] Comment on above: Performed By: #### C OMP #### [address] [address] Diff Autoon 11-08-2021 Baso Absolute 0.0 x10*3/mcL Normal 0.0-0.2 [facility] Comment on above: Performed By: #### . Automated Diff #### [address] [address] Basophils/100 WBC (Bld) 0.5 % Normal 0.0-1.5 [facility] Comment on above: Performed By: #### . Automated Diff #### [address] [address] Eos Absolute 0.0 x10*3/mcL Normal 0.0-0.4 [facility] Comment on above: Performed By: #### . Automated Diff #### [address] [address] Eosinophils/100 WBC (Bld) 1.1 % Normal 0.0-5.4 [facility] Comment on above: Performed By: #### . Automated Diff #### [address] [address] Lymph Absolute 1.0 x10*3/mcL Normal 1.0-4.[address] [facility] Comment on above: Performed By: #### . Automated Diff #### [address] [address] Lymphocytes/100 WBC (Bld) 21.6 % Low 27.2-40.8 [facility] Comment on above: Performed By: #### . Automated Diff #### [address] [address] Stephenson Absolute 0.5 x10*3/mcL Normal 0.1-1.1 [facility] Comment on above: Performed By: #### . Automated Diff #### [address] [address] Monocytes/100 WBC (Bld) 11.2 % Normal 3.7-11.9 [facility] Comment on above: Performed By: #### . Automated Diff #### [address] [address] Neutro Absolute 3.0 x10*3/mcL Normal 1.8-7.7 [facility] Comment on above: Performed By: #### . Automated Diff #### [address] [address] Neutro Auto 65.6 % Normal 47.2-70.8 [facility] Comment on above: Performed By: #### . Automated Diff #### [address] [address] ED Clinical Summaryon 2021 ED Clinical Summary [address] [address] ED Clinical Summary Person Information Name: Nicki Oviedo/[facility] Age: 46 Years : 1975 Sex: Female PCP: Marital Status: Single Phone: Race: White Ethnicity: Not or Language: Algerian Visit Reason: Abdominal pain; Abdominal pain Acuity: 3 Enc Type: Emergency Med Service: Emergency Medicine Arrival: 11/07/2021 23:42:16 Discharge: 11/08/2021 01:25:00 LOS: 000 01:43 Checkin: 11/07/2021 23:42:16 Checkout: 11/08/2021 01:25:00 Dispo Type: Home or Self Care Address: [address] [place] [address] Provider Notes: Diagnosis: 1:Diffuse abdominal pain; 2:History [...] range between ( 27.2 and 40.8 ) Stephenson Auto: 11.2 % -- Normal range between [...] range between ( 36.0 and 46.0 ) Stephenson Absolute: 0.5 x10 MCH: 28.5 pg -- [...] This Visit Final Med List: New Medications [facility], [address] [place], [place] [id number], [phone] methylPREDNISolone (Medrol 4 mg oral tablet) 1 Packets Oral (given by mouth) As Indicated for 6 Days. as directed on package labeling. Refills: 0. Last Dose: ____ Medications That Were Updated - Follow Current Instructions [facility], [address] [place], [place] [id number], [phone] Current ondansetron (Zofran ODT 4 mg oral tablet, disintegrating) 1 Tabs Oral (given by mouth) 3 times a day as needed nausea/vomiting. Refills: 0. Last Dose: ____ Other Medications Current ondansetron (Zofran 4 mg oral tablet) 1 Tabs Oral (given by mouth) every 8 hours as needed naus (more content not included)... Normal [facility] ED Note-Physicianon 11-09-19 ED Note-Physician Chief [...] Patient does reports a recent admission in [place] last month for abdominal pain, Crohn's flare [...] quadrants] : [No costovertebral angle tenderness] Skin: [[place], warm, dry, no injury, no rashes] Neuro: [...] tabs, 0 Refill(s), 11/14/21 1:03:00 EDT, Pharmacy: [facility] ondansetron, 1 tabs, Oral, TID, PRN, # 12 tabs, 0 Refill(s), Pharmacy: [facility] sodium chloride, 10 mL, IV Push, Injection, As Indicated, PRN flush, First Dose: 11/08/21 0:02:00 EDT, Dispense From Location: [facility], 11/08/21 0:02:00 EDT Discharge Patient NPO Peripheral [...] oral t (more content not included)... Normal [facility] Lipaseon 11-08-2021 Lipase Lvl 28 IU/L Normal 22-51 [facility] Comment on above: Performed By: #### L IP #### [address] [address] S Preg Qlon 11-08-2021 Serum Preg Negative Normal [facility] Comment on above: Result Comment: The hCG Combo Rapid Test has a sensitivity of 10 mIU/mL in serum and is capable of detecting as early as 1 day after the first missed menses. Performed By: #### S PTQ #### [address] [address] UA w Culture if Indon 2021 Color (U) Yellow Normal [facility] Comment on above: Performed By: #### E GFR #### [address] [address] Glucose (U) [Mass/Vol] 100 mg/dL Abnormal Negative [facility] Comment on above: Performed By: #### E GFR #### [address] [address] Ketones Ql (U) Negative Normal Negative [facility] Comment on above: Performed By: #### E GFR #### [address] [address] UA Blood 1+ Abnormal Negative [facility] Comment on above: Performed By: #### E GFR #### [address] [address] UA Clarity Turbid Normal [facility] Comment on above: Performed By: #### E GFR #### [address] [address] UA Leukocyte Esterase Negative Normal Negative [place] Comment on above: Performed By: #### E GFR #### [address] [place] [address] UA Nitrite Negative Normal Negative [facility] Comment on above: Performed By: #### E GFR #### [address] [address] UA pH 5.5 Normal 4.5 - 7.8 [facility] Comment on above: Performed By: #### E GFR #### [address] [address] UA Protein 20 mg/dL Normal Negative [facility] Comment on above: Performed By: #### E GFR #### [address] [address] UA Source Clean Catch Normal [facility] Comment on above: Performed By: #### E GFR #### [address] [address] UA Spec Grav 1.032 Normal 1.003-1.035 [facility] Comment on above: Performed By: #### E GFR #### [address] [address] UA Urobilinogen Normal Normal 0.2 - 1.0 [facility] Comment on above: Performed By: #### E GFR #### [address] [address] Urobilinogen (U) [Mass/Vol] Negative Normal Negative [facility] Comment on above: Performed By: #### E GFR #### [address] [address] CBC AND DIFFERENTIALon 09-15 % AUTOMATED IMMATURE GRAN 0.5 % Normal 0.0 - 0.9 [facility] Comment on above: Result Comment: Renita ture Granulocyte Count (IG) includes promyelocytes, myelocytes and metamyelocytes but does not include bands. Percent differential counts (%) should be interpreted in the context of the absolute cell counts (cells/L). Performed By: #### T RPHS #### [address] [id number] Basophils (Bld) [#/Vol] 0.03 10*3/uL Normal 0.00 - 0.1 0 [facility] Comment on above: Performed By: #### T RPHS #### [address] [id number] Basophils/100 WBC (Bld) 0.4 % Normal 0.0 - 2.0 [facility] [facility] Comment on above: Performed By: #### T RPHS #### [address] [id number] Eosinophils (Bld) [#/Vol] 0.01 10*3/uL Normal 0.00 - 0.70 [facility] Comment on above: Performed By: #### T RPHS #### [address] [id number] Eosinophils/100 WBC (Bld) 0.1 % Normal 0.0 - 6.0 [facility] Comment on above: Performed By: #### T RPHS #### [address] [id number] Erythrocyte distribution width (RBC) [Ratio] 13.2 % Normal 11.5 - 14.5 [facility] Comment on above: Performed By: #### T RPHS #### [address] [id number] Hematocrit (Bld) [Volume fraction] 44.0 % Normal 36.0 - 46.0 [facility] Comment on above: Performed By: #### T RPHS #### [address] [id number] Hemoglobin (Bld) [Mass/Vol] 14.2 g/dL Normal 12.0 - 16.0 [facility] Comment on above: Performed By: #### T RPHS #### [address] [id number] Lymphocytes (Bld) [#/Vol] 0.77 10*3/uL Low 1.20 - 4.80 [facility] Comment on above: Performed By: #### T RPHS #### [address] [id number] Lymphocytes/100 WBC (Bld) 10.0 % Normal 13.0 - 44.0 [facility] Comment on above: Performed By: #### T RPHS #### [address] [id number] MCHC (RBC) [Mass/Vol] 32.3 g/dL Normal 32.0 - 36.0 [facility] Comment on above: Performed By: #### T RPHS #### [address] [id number] MCV (RBC) [Entitic vol] 86 fL Normal 80 - 100 U [facility] Comment on above: Performed By: #### T RPHS #### [address] [id number] Monocytes (Bld) [#/Vol] 0.09 10*3/uL Low 0.10 - 1.0 0 [facility] Comment on above: Performed By: #### T RPHS #### [address] [id number] Monocytes/100 WBC (Bld) 1.2 % Normal 2.0 - 10.0 [facility] Comment on above: Performed By: #### T RPHS #### [address] [id number] Neutrophils (Bld) [#/Vol] 6.74 10*3/uL Normal 1.20 - 7.70 [facility] Comment on above: Performed By: #### T RPHS #### [address] [id number] Neutrophils/100 WBC (Bld) 87.8 % Normal 40.0 - 80.0 [facility] Comment on above: Performed By: #### T RPHS #### [address] [id number] Platelets (Bld) [#/Vol] 333 10*3/uL Normal 150 - 450 [facility] Comment on above: Performed By: #### T RPHS #### [address] [id number] RBC 5.12 x10E12/L Normal 4.00 - 5.20 [facility] Comment on above: Performed By: #### T RPHS #### [address] [id number] WBC (Bld) [#/Vol] 7.7 10*3/uL Normal 4.4 - 11.3 [facility] Comment on above: Performed By: #### T RP #### [address] [id number] COMPREHENSIVE PANELon 2021 Albumin [Mass/Vol] 4.0 g/dL Normal 3.4 - 5.0 [facility] Comment on above: Performed By: #### C MP #### [address] [id number] ALP [Catalytic activity/Vol] 66 U/L Normal 33 - 110 [facility] Comment on above: Performed By: #### C MP #### [address] [id number] ALT [Catalytic activity/Vol] 26 U/L Normal 7 - 45 [facility] Comment on above: Result Comment: Deisy ents treated with Sulfasalazine may generate falsely decreased results for ALT. Performed By: #### C MP #### [address] [id number] Anion gap [Moles/Vol] 14 mmol/L Normal 10 - 20 [facility] Comment on above: Performed By: #### C MP #### [address] [id number] AST [Catalytic activity/Vol] 18 U/L Normal 9 - 39 [facility] Comment on above: Performed By: #### C MP #### [address] [id number] Bilirubin [Mass/Vol] 0.5 mg/dL Normal 0.0 - 1.2 [facility] Comment on above: Performed By: #### C MP #### [address] [id number] Calcium [Mass/Vol] 9.3 mg/dL Normal 8.6 - 10.3 [facility] Comment on above: Performed By: #### C MP #### [address] [id number] Chloride [Moles/Vol] 99 mmol/L Normal 98 - 107 [facility] Comment on above: Performed By: #### C MP #### [address] [id number] Creatinine [Mass/Vol] 0.96 mg/dL Normal 0.50 - 1.05 [facility] Comment on above: Performed By: #### C MP #### [address] [id number] GFR/1.73 sq M.predicted among non-blacks MDRD (S/P/Bld) [Vol rate/Area] 75 mL/min/{1.73_m2} Normal >90 [facility] Comment on above: Result Comment: CALC ULATIONS OF ESTIMATED GFR ARE PERFORMED USING THE 2020 CKD-EPI STUDY REFIT EQUATION WITHOUT THE RACE VARIABLE FOR THE IDMS-TRACEABLE CREATININE METHODS. https://jasn.asnjournals.org/content//ASN.2020 975291 Performed By: #### C MP #### [address] [id number] Glucose [Mass/Vol] 370 mg/dL High 74 - 99 [facility] Comment on above: Performed By: #### C MP #### [address] [id number] HCO3 (Bld) [Moles/Vol] 25 mmol/L Normal 21 - 32 [facility] Comment on above: Performed By: #### C MP #### [address] [id number] Potassium [Moles/Vol] 4.8 mmol/L Normal 3.5 - 5.3 [facility] Comment on above: Performed By: #### C MP #### [address] [id number] Protein [Mass/Vol] 7.5 g/dL Normal 6.4 - 8.2 [facility] Comment on above: Performed By: #### C MP #### [address] [id number] Sodium [Moles/Vol] 133 mmol/L Low 136 - 145 [facility] Comment on above: Performed By: #### C MP #### [address] [id number] Urea nitrogen [Mass/Vol] 18 mg/dL Normal 6 - 23 [facility] Comment on above: Performed By: #### C MP #### [address] [id number] HCG,URINEon 09-15-2021 Beta HCG ( test) Ql (U) Negative Normal Negative [facility] Comment on above: Performed By: #### L ACT #### [address] [id number] LACTATEon 09-15-2021 Lactate [Moles/Vol] 2.0 mmol/L Normal 0.4 - 2.0 [facility] Comment on above: Result Comment: Delicia puncture immediately after or during the administration of Metamizole may lead to falsely low results. Testing should be performed immediately prior to Metamizole dosing. Performed By: #### L ACT #### [address] [id number] Lactate [Moles/Vol] 2.7 mmol/L High 0.4 - 2.0 [facility] Comment on above: Result Comment: Delicia puncture immediately after or during the administration of Metamizole may lead to falsely low results. Testing should be performed immediately prior to Metamizole dosing. Performed By: #### T RPHS #### [address] [id number] LIPASEon 09-15-2021 Lipase [Catalytic activity/Vol] 52 U/L Normal 9 - 82 [facility] Comment on above: Result Comment: Delicia puncture immediately after or during the administration of Metamizole may lead to falsely low results. Testing should be performed immediately prior to Metamizole dosing. J-xryqzg-g-benzoquinone imine (metabolite of Acetaminophen) will generate erroneously low results in samples for patients that have taken toxic doses of acetaminophen. Performed By: #### L IPAS #### [facility] [address], [place] [id number] Provider Note - ED v3on 03- Provider Note - ED v3 Provider Note: [...] smoke. She states that she is from [place] and is currently visiting in town. No further pain or complaints at this [...] Reference Range: STRAW,YELLOW Appearance, Urine CLEAR Specific [place], Urine 1.039 H pH, Urine 5.0 Protein, Urine NEGATIVE Glucose, Urine >=500 (3+) A Blood, Urine SMALL(1+) A Ketones, Urine NEGATIVE Bilirubin, Urine NEGATIVE Urobilinogen, Urine <2.0 Nitrite, Urine NEGATIVE Leukocyte Esterase, Urine NEGATIVE Urinalysis, Microscopic 15-Sep-2021 01:40:00 ResultValue White Cells 1 Red Blood Cells 2 Epithelial Cells, Squamous 1 Lactate, Level 15-Sep-2021 01:40:00 ResultValu (more content not included)... Normal [facility] Triage - EDon 09-15-2021 Triage - [...] Accompanied By: self Language: Spoken Language Preferred: Algerian Reading Language Preferred: Algerian Nurse Intern Requested: no layer up was requested CHIEF COMPLAINT NICKI OVIEDO is [...] obeys commands Best Verbal Response: (V5) oriented Meredith Score: 15 Cough lasting greater than 3 [...] 22:46 by Vonda Whiting (STAFF N) Normal [facility] UA MICROSCOPICon 09-15-2021 RBC 2 /HPF Normal 0-5 [facility] Comment on above: Performed By: #### T RPHS #### [address] [id number] SQUAMOUS EPITH. CELLS 1 /HPF Normal [facility] Comment on above: Performed By: #### T RPHS #### [address] [id number] WBC 1 /HPF Normal 0-5 [facility] Comment on above: Performed By: #### T RPHS #### [address] [id number] URINALYSISon 09-15-2021 Appearance (U) CLEAR Normal CLEAR [facility] Comment on above: Performed By: #### L ACT #### [address] [id number] Bilirubin Ql (U) Negative Normal NEGATIVE [facility] Comment on above: Performed By: #### L ACT #### [address] [id number] Color (U) STRAW Normal STRAW,YELLOW [facility] Comment on above: Performed By: #### L ACT #### [address] [id number] Glucose Ql (U) >=500 (3+) Abnormal NEGATIVE [facility] Comment on above: Performed By: #### L ACT #### [address] [id number] Hemoglobin Ql (U) SMALL(1+) Abnormal NEGATIVE [facility] Comment on above: Performed By: #### L ACT #### [address] [id number] Ketones Ql (U) Negative Normal NEGATIVE [facility] Comment on above: Performed By: #### L ACT #### [address] [id number] Leukocyte esterase Test strip Ql (U) Negative Normal NEGATIVE [facility] Comment on above: Performed By: #### L ACT #### [address] [id number] Nitrite Ql (U) Negative Normal NEGATIVE [facility] Comment on above: Performed By: #### L ACT #### [address] [id number] pH (U) 5.0 [pH] Normal 5.0 - 8.0 [facility] Comment on above: Performed By: #### L ACT #### [address] [id number] Protein Ql (U) Negative Normal NEGATIVE [facility] Comment on above: Performed By: #### L ACT #### [address] [id number] Specific gravity (U) [Rel density] 1.039 High 1.005 - 1.035 [facility] Comment on above: Performed By: #### L ACT #### [address] [id number] Urobilinogen (U) [Mass/Vol] mg/dL Normal 0.0 - 1.9 [facility] Comment on above: Performed By: #### L ACT #### [address] [id number] Albumin [Mass/volume] in Ser um or PlasmaOrdered By: Johnnie Pearson on 09-14-2021 Albumin [Mass/Vol] 3.5 g/dL 3.2-5.5 [facility] Basophils Auto (Bld) [#/Vol] Ordered By: Johnnie Pearson on 09-14-2021 Basophils (Bld) [#/Vol] 0.0 10*3/uL 0.0-0.2 [facility] Basophils/100 WBC Auto (Bld) Ordered By: Johnnie Pearson on 09-14-2021 Basophils/100 WBC (Bld) 0.4 % [facility] Blood hemoglobin measurement (mass/volume)Ordered By: Johnnie Pearson on 09-14-2021 Hemoglobin (Bld) [Mass/Vol] 15.1 g/dL 11.8-15.4 [facility] Blood leukocytes automated c ount (number/volume)Ordered By: Johnnie Pearson on 09-14-2021 WBC (Bld) [#/Vol] 6.6 10*3/uL 4.5-11.0 [facility] Creatinine and Glomerular fi ltration rate.predicted panel (S/P/Bld)Ordered By: Johnnie Pearson on 09-14-2021 Creatinine [Mass/Vol] 1.02 mg/dL 0.44-1.[address] [facility] Eosinophils Auto (Bld) [#/Vo l]Ordered By: Johnnie Pearson on 09-14-2021 Eosinophils (Bld) [#/Vol] 0.1 10*3/uL 0.0-0.45 [facility] Eosinophils/100 WBC Auto (Bl d)Ordered By: Johnnie Pearson on 09-14-2021 Eosinophils/100 WBC (Bld) 1.0 % [facility] Erythrocyte distribution wid th Auto (RBC) [Ratio]Ordered By: Johnnie Pearson on 09-14-2021 Erythrocyte distribution width (RBC) [Ratio] 14.2 % 11.9-15.3 [facility] Erythrocyte sedimentation ra te by Photometric methodOrdered By: Johnnie Perason on 09-14-2021 ESR Photometric method (Bld) [Velocity] 42 mm/hr 0-19 [facility] Estimated glomerular filtrat ion rate (GFR) non- AmericanOrdered By: Johnnie Pearson on 09-14-2021 GFR/1.73 sq M.predicted among non-blacks MDRD (S/P/Bld) [Vol rate/Area] 59 mL/Min [facility] Globulin Calc (S) [Mass/Vol] Ordered By: Johnnie Pearson on 09-14-2021 Globulin (S) [Mass/Vol] 3.6 g/dL [facility] Hematocrit Auto (Bld) [Volum e fraction]Ordered By: Johnnie Pearson on 09-14-2021 Hematocrit (Bld) [Volume fraction] 45.6 % 34.0-46.4 [facility] Laboratory - Chemistry and C hemistry - challengeOrdered By: Johnnie Pearson on 09-14-2021 Lipase [Catalytic activity/Vol] 50.0 U/L [facility] Laboratory - Hematology and Cell countsOrdered By: Johnnie Pearson on 09-14-2021 Nucleated RBC/100 WBC (Bld) [Ratio] 0.0 % 0-0.5 [facility] Lymphocytes Auto (Bld) [#/Vo l]Ordered By: Johnnie Pearson on 09-14-2021 Lymphocytes (Bld) [#/Vol] 2.2 10*3/uL 1.00-4.8 [facility] Lymphocytes/100 WBC Auto (Bl d)Ordered By: Johnnie Pearson on 09-14-2021 Lymphocytes/100 WBC (Bld) 33.6 % [facility] MCH Auto (RBC) [Entitic mass ]Ordered By: Johnnie Pearson on 09-14-2021 MCH (RBC) [Entitic mass] 28.4 pg 24.7-34.3 [facility] MCHC Auto (RBC) [Mass/Vol]Or dered By: Johnnie Pearson on 09-14-2021 MCHC (RBC) [Mass/Vol] 33.2 g/dL 32.0-35.[address] [facility] MCV Auto (RBC) [Entitic vol] Ordered By: Johnnie Pearson on 09-14-2021 MCV (RBC) [Entitic vol] 85.4 fL 80-100 [facility] Monocytes Auto (Bld) [#/Vol] Ordered By: Johnnie Pearson on 09-14-2021 Monocytes (Bld) [#/Vol] 0.6 10*3/uL 0.0-0.8 [facility] Monocytes/100 WBC Auto (Bld) Ordered By: Johnnie Pearson on 09-14-2021 Monocytes/100 WBC (Bld) 9.1 % [facility] Neutrophils Auto (Bld) [#/Vo l]Ordered By: Johnnie Pearson on 09-14-2021 Neutrophils (Bld) [#/Vol] 3.7 10*3/uL 1.8-7.7 [facility] Neutrophils/100 WBC Auto (Bl d)Ordered By: Johnnie Pearson on 09-14-2021 Neutrophils/100 WBC (Bld) 55.9 % [facility] No Panel InformationOrdered By: Johnnie Pearson on 09-14-2021 Estimated GFR () > 60 mL/Min [facility] Comment on above: GFR estimated refere nce range: According to KDOQI guidelines, <60 ml/min/1.73m2 is sufficient to diagnose a patient with chronic kidney disease. Pharmacy Creatinine Clearance (Chem 102.00 [facility] Platelet mean volume Auto (B ld) [Entitic vol]Ordered By: Johnnie Pearson on 09-14-2021 Platelet mean volume (Bld) [Entitic vol] 7.5 fL 6.3-10.7 [facility] Platelets Auto (Bld) [#/Vol] Ordered By: Johnnie Pearson on 09-14-2021 Platelets (Bld) [#/Vol] 343 10*3/uL 150-450 [facility] Protein [Mass/volume] in Ser um or PlasmaOrdered By: Johnnie Pearson on 09-14-2021 Protein [Mass/Vol] 7.1 g/dL 6.1-7.9 [facility] RBC Auto (Bld) [#/Vol]Ordere d By: Johnnie Pearson on 09-14-2021 RBC (Bld) [#/Vol] 5.33 10*6/uL 3.60-5.00 [facility] Serum or plasma C reactive p rotein measurement (mass/volume)Ordered By: Johnnie Pearson on 09-14-2021 CRP [Mass/Vol] 1.1 mg/dL 0.0-1.0 [facility] Serum or plasma alanine villalobos otransferase measurement without P-5'-P (enzymatic activiOrdered By: Johnnie Pearson on 03-30-2022 ALT No additional P-5'-P [Catalytic activity/Vol] 30 U/L 10-60 [facility] Serum or plasma albumin/glob ulin mass ratioOrdered By: Johnnie Pearson on 09-14-2021 Albumin/Globulin [Mass ratio] 1.0 {ratio} [facility] Serum or plasma alkaline zan sphatase measurement (enzymatic activity/volume)Ordered By: Johnnie Pearson on 09-14-2021 ALP [Catalytic activity/Vol] 66 U/L 32-92 [facility] Serum or plasma aspartate am inotransferase measurement (enzymatic activity/volume)Ordered By: Johnnie Pearson on 09-14-2021 AST [Catalytic activity/Vol] 20 U/L 10-42 [facility] Serum or plasma calcium rosa m urement (mass/volume)Ordered By: Johnnie Pearson on 09-14-2021 Calcium [Mass/Vol] 9.5 mg/dL 8.2-10.2 [facility] Serum or plasma chloride joshua surement (moles/volume)Ordered By: Johnnie Pearson on 09-14-2021 Chloride [Moles/Vol] 100 mmol/L 95-114 [facility] Serum or plasma glucose rosa m urement (mass/volume)Ordered By: Johnnie Pearson on 09-14-2021 Glucose [Mass/Vol] 186 mg/dL 70-100 [facility] Comment on above: ADA recommended refe rence rangeRandom Glucose Reference Range is dependent on time and content of last meal. Glucose of more than 200 mg/dL in a nonstressed, ambulatory subject supports the diagnosis of Diabetes Mellitus. Serum or plasma potassium me asurement (moles/volume)Ordered By: Johnnie Pearson on 09-14-2021 Potassium [Moles/Vol] 4.0 mmol/L 3.5-5.[address] [facility] Serum or plasma sodium measu rement (moles/volume)Ordered By: Johnnie Pearson on 09-14-2021 Sodium [Moles/Vol] 135 mmol/L 136-146 [facility] Serum or plasma total biliru bin measurement (mass/volume)Ordered By: Johnnie Pearson on 09-14-2021 Bilirubin [Mass/Vol] 0.4 mg/dL 0.3-1.2 [facility] Serum or plasma total carbon dioxide measurement (moles/volume)Ordered By: Johnnie Pearson on 09-14-2021 CO2 [Moles/Vol] 24.8 mmol/L 22.0-30.0 [facility] Serum or plasma urea nitroge n measurement (mass/volume)Ordered By: Johnnie Pearson on 09-14-2021 Urea nitrogen [Mass/Vol] 15 mg/dL 9-23 [facility] C-REACTIVE PROTEINon 022 CRP [Mass/Vol] 7.6 mg/L High 0.0-5.0 [facility] Comment on above: Performed By: #### C RP2 #### HEALTHCARE RECEPTIONIST: AJAY Abreu [facility]-JT[facility] [address] [place] [id number] CBC-MANUAL DIFF IF INDon IMMATURE GRAN., TOTAL 0.01 10*3/uL Normal 0.00-0.03 [facility] Comment on above: Result Comment: The Immature Granulocytes, Total represents an automated count of Metamyelocytes, Myelocytes, and Promyelocytes, and is NOT included in the Neutrophils, Total count. Performed By: #### C BC3 #### HEALTHCARE RECEPTIONIST: AJAY Abreu [facility] [address] [place] [address] IMMATURE GRANULOCYTE % 0.2 % Normal 0.0-0.4 [facility] Comment on above: Performed By: #### C BC3 #### HEALTHCARE RECEPTIONIST: AJAY Abreu [facility] [address] [place] [address] ANISOCYTOSIS cancelled Normal NONE-1+ [facility] Comment on above: Performed By: #### C BC3 #### HEALTHCARE RECEPTIONIST: AJAY Lois [facility]-JT[facility] [address] [place] [address] BASOPHIL % 0.5 % Normal 0.0-2.0 [facility] Comment on above: Performed By: #### C BC3 #### HEALTHCARE RECEPTIONIST: AJAY Abreu [facility]-J[facility] [address] [place] [address] BASOPHILS, TOTAL 0.0 10*3/uL Normal 0.0-0.1 [facility] Comment on above: Performed By: #### C BC3 #### HEALTHCARE RECEPTIONIST: AJAY [facility] [address] [place] [address] EOSINOPHIL % 1.3 % Normal 0.0-10.0 [facility] Comment on above: Performed By: #### C BC3 #### HEALTHCARE RECEPTIONIST: AJAY [facility]AS [facility] [address] [place] [address] EOSINOPHILS, TOTAL 0.1 10*3/uL Normal 0.0-0.7 [facility] Comment on above: Performed By: #### C BC3 #### HEALTHCARE RECEPTIONIST: AJAY ARIAS [facility] [address] [id number] HYPOCHROMIA cancelled Normal NONE-1+ [facility] Comment on above: Performed By: #### C BC3 #### HEALTHCARE RECEPTIONIST: AJAY ARIAS [facility] [address] [place] [address] LYMPHOCYTE % 28.3 % Normal 22.0-69.0 [facility] Comment on above: Performed By: #### C BC3 #### HEALTHCARE RECEPTIONIST: AJAY ARIAS [facility] [address] [place] [address] LYMPHOCYTES, TOTAL 1.8 10*3/uL Normal 1.5-3.5 [facility] Comment on above: Performed By: #### C BC3 #### HEALTHCARE RECEPTIONIST: AJAY ARIAS [facility] [address] [place] [address] MACROCYTOSIS cancelled Normal NONE-1+ [facility] Comment on above: Performed By: #### C BC3 #### HEALTHCARE RECEPTIONIST: AJAY ARIAS [facility] [address] [place] [address] MCH 28.7 pg Normal 27.0-31.0 [facility] Comment on above: Performed By: #### C BC3 #### HEALTHCARE RECEPTIONIST: AJAY ARIAS [facility] [address] [place] [address] MCHC 33.3 g/dL Normal 32.0-36.0 [facility] Comment on above: Performed By: #### C BC3 #### HEALTHCARE RECEPTIONIST: AJAY [facility] [address] [place] [address] MCV 86.2 fL Normal 78.0-100.0 [facility] Comment on above: Performed By: #### C BC3 #### HEALTHCARE RECEPTIONIST: AJAY [facility]AS [facility] [address] [place] [address] MICROCYTOSIS cancelled Normal NONE-1+ [facility] Comment on above: Performed By: #### C BC3 #### HEALTHCARE RECEPTIONIST: AJAY ARIAS [facility] [address] [place] [address] MONOCYTE % 12.3 % Normal 2.0-14.0 [facility] Comment on above: Performed By: #### C BC3 #### HEALTHCARE RECEPTIONIST: AJAY ARIAS [facility] [address] [place] [address] MONOCYTES, TOTAL 0.8 10*3/uL Normal 0.0-1.0 [facility] Comment on above: Performed By: #### C BC3 #### HEALTHCARE RECEPTIONIST: AJAY ARIAS [facility] [address] [place] [address] MPV 9.6 fL Normal 8.7-12.3 [facility] Comment on above: Performed By: #### C BC3 #### HEALTHCARE RECEPTIONIST: AJAY ARIAS [facility] [address] [place] [address] NEUTROPHIL % 57.4 % Normal 47.0-76.0 [facility] Comment on above: Performed By: #### C BC3 #### HEALTHCARE RECEPTIONIST: AJAY ARIAS [facility] [address] [place] [address] NEUTROPHILS, TOTAL 3.6 10*3/uL Normal 1.5-6.6 [facility] Comment on above: Performed By: #### C BC3 #### HEALTHCARE RECEPTIONIST: AJAY ARIAS [facility] [address] [place] [address] PLATELETS 262 10*3/uL Normal 150-450 [facility] Comment on above: Performed By: #### C BC3 #### HEALTHCARE RECEPTIONIST: AJAY ARIAS [facility] [address] [place] [address] RDW-CV 13.2 % Normal 11.5-14.0 [facility] Comment on above: Performed By: #### C BC3 #### HEALTHCARE RECEPTIONIST: AJAY ARIAS [facility] [address] [place] [address] RDW-SD 40.8 fL Normal 36.0-50.0 [facility] Comment on above: Performed By: #### C BC3 #### HEALTHCARE RECEPTIONIST: [facility] [address] [place] [address] RED BLOOD CELLS 4.42 10*6/uL Normal 4.20-5.40 [facility] Comment on above: Performed By: #### C BC3 #### HEALTHCARE RECEPTIONIST: AJAY ARIAS [facility] [address] [place] [address] WHITE BLOOD CELLS 6.2 10*3/uL Normal 4.0-10.5 [facility] Comment on above: Performed By: #### C BC3 #### HEALTHCARE RECEPTIONIST: AJAY ARIAS [facility] [address] [place] [address] LIPASEon 07-09-2021 Lipase [Catalytic activity/Vol] 33 U/L Normal 13-60 [facility] Comment on above: Performed By: #### L IPAS #### HEALTHCARE RECEPTIONIST: AJAY YOULM [facility] [address] [place] [address] METABOLIC PANEL, COMPREHENSI VEon 07-09-2021 Albumin [Mass/Vol] 3.8 g/dL Normal 3.5-5.0 [facility] Comment on above: Performed By: #### C MP #### HEALTHCARE RECEPTIONIST: AJAY YOULM [facility] [address] [place] [address] ALP [Catalytic activity/Vol] 69 U/L Normal 35-105 [facility] Comment on above: Result Comment: Resu lt may be affected by hemolysis Performed By: #### C MP #### HEALTHCARE RECEPTIONIST: AJAY ARIAS [facility] [address] [place] [address] ALT [Catalytic activity/Vol] 32 U/L Normal 0-33 [facility] Comment on above: Result Comment: Resu lt may be affected by hemolysis Performed By: #### C MP #### HEALTHCARE RECEPTIONIST: AJAY YOULM [facility] [address] [place] [address] Anion gap [Moles/Vol] 9 mmol/L Normal 7-16 [facility] Comment on above: Performed By: #### C MP #### HEALTHCARE RECEPTIONIST: AJAY YOULM [facility] [address] [place] [address] AST [Catalytic activity/Vol] 34 U/L High 0-32 [facility] Comment on above: Result Comment: Resu lt may be affected by hemolysis Performed By: #### C MP #### HEALTHCARE RECEPTIONIST: AJAY ARIAS [facility] [address] [place] [address] Bilirubin [Mass/Vol] 0.3 mg/dL Normal 0.0-1.0 [facility] Comment on above: Performed By: #### C MP #### HEALTHCARE RECEPTIONIST: AJAY YOULM [facility] [address] [place] [address] Calcium [Mass/Vol] 9.1 mg/dL Normal 8.4-10.2 [facility] Comment on above: Performed By: #### C MP #### HEALTHCARE RECEPTIONIST: AJAY YOULM [facility] [address] [place] [address] Chloride [Moles/Vol] 97 mmol/L Low 98-107 [facility] Comment on above: Performed By: #### C MP #### HEALTHCARE RECEPTIONIST: AJAY ARIAS [facility] [address] [place] [address] CO2 [Moles/Vol] 28 mmol/L Normal 22-29 [facility] Comment on above: Performed By: #### C MP #### HEALTHCARE RECEPTIONIST: AJAY ARIAS [facility] [address] [place] [address] Creatinine [Mass/Vol] 0.9 mg/dL Normal 0.5-0.9 [facility] Comment on above: Performed By: #### C MP #### HEALTHCARE RECEPTIONIST: AJAY Lois ARIAS [facility] [address] [place] [address] GFR/1.73 sq M.predicted MDRD (S/P/Bld) [Vol rate/Area] 78 mL/min/{1.73_m2} Abnormal [facility] Comment on above: Result Comment: GFR CATEGORIES [...] as recommended by National Kidney Foundation and [place] Society of Nephrology Task Force (2020). The calculation is imprecise due to physiological limitations of using serum creatinine as a filtration marker, and individual variability in muscle mass and nutritional status. Performed By: #### C MP #### HEALTHCARE RECEPTIONIST: AJAY ARIAS [facility] [address] [place] [address] Glucose [Mass/Vol] 147 mg/dL High 74-99 [facility] Comment on above: Performed By: #### C MP #### HEALTHCARE RECEPTIONIST: AJAY K HUGO [facility] [address] [place] [address] Potassium [Moles/Vol] 5.3 mmol/L High 3.5-5.1 [facility] Comment on above: Result Comment: Resu lt may be affected by hemolysis Performed By: #### C MP #### HEALTHCARE RECEPTIONIST: AJAY ARIAS [facility] [address] [place] [address] Protein [Mass/Vol] 6.8 g/dL Normal 6.4-8.3 [facility] Comment on above: Performed By: #### C MP #### HEALTHCARE RECEPTIONIST: AJAY YOULM [facility] [address] [place] [address] Sodium [Moles/Vol] 134 mmol/L Low 136-145 [facility] Comment on above: Performed By: #### C MP #### HEALTHCARE RECEPTIONIST: AJAY YOULM [facility] [address] [place] [address] UN/CREA RATIO 10 {ratio} Low 12-20 [facility] Comment on above: Performed By: #### C MP #### HEALTHCARE RECEPTIONIST: AJAY YOULM [facility] [address] [place] [address] Urea nitrogen [Mass/Vol] 9 mg/dL Normal 6-20 [facility] Comment on above: Performed By: #### C MP #### HEALTHCARE RECEPTIONIST: AJAY YOULM [facility] [address] [place] [address] SED RATE (WESTERGREN)on 06-19 SED RATE (WESTERGREN) 21 mm/h High 0-20 [facility] Comment on above: Performed By: #### S EDW #### HEALTHCARE RECEPTIONIST: AJAY YOULM [facility] [address] [place] [address] BASIC METABOLIC PANELon 05-19 Anion gap [Moles/Vol] 15 mmol/L Normal 10 - 20 [facility] Comment on above: Performed By: #### T RP #### [facility] [address] [place], [place] [id number] Calcium [Mass/Vol] 9.7 mg/dL Normal 8.6 - 10.3 [facility] Comment on above: Performed By: #### T RP #### [address] [id number] Chloride [Moles/Vol] 100 mmol/L Normal 98 - 107 [facility] Comment on above: Performed By: #### T RPHS #### [address] [id number] Creatinine [Mass/Vol] 1.02 mg/dL Normal 0.50 - 1.05 [facility] Comment on above: Performed By: #### T RPHS #### [address] [id number] GFR- AM. 71 mL/min/1.73m2 Normal >60 [facility] Comment on above: Result Comment: CALC ULATIONS OF ESTIMATED GFR ARE PERFORMED USING THE MDRD STUDY EQUATION FOR THE IDMS-TRACEABLE CREATININE METHODS. CLIN CHEM 2007;53:766-72 Performed By: #### T RPHS #### [address] [id number] GFR-NON AM. 59 mL/min/1.73m2 Abnormal >60 [facility] Comment on above: Performed By: #### T RPHS #### [address] [id number] Glucose [Mass/Vol] 141 mg/dL High 74 - 99 [facility] Comment on above: Performed By: #### T RPHS #### [address] [id number] HCO3 (Bld) [Moles/Vol] 24 mmol/L Normal 21 - 32 [facility] Comment on above: Performed By: #### T RPHS #### [address] [id number] Potassium [Moles/Vol] 4.2 mmol/L Normal 3.5 - 5.3 [facility] Comment on above: Performed By: #### T RPHS #### [address] [id number] Sodium [Moles/Vol] 135 mmol/L Low 136 - 145 [facility] Comment on above: Performed By: #### T RP #### [address] [id number] Urea nitrogen [Mass/Vol] 15 mg/dL Normal 6 - 23 [facility] Comment on above: Performed By: #### T RPHS #### [address] [id number] CBC AND DIFFERENTIALon 06-08 % AUTOMATED IMMATURE GRAN 0.4 % Normal 0.0 - 0.9 [facility] Comment on above: Result Comment: Renita ture Granulocyte Count (IG) includes promyelocytes, myelocytes and metamyelocytes but does not include bands. Percent differential counts (%) should be interpreted in the context of the absolute cell counts (cells/L). Performed By: #### B MP #### [address] [id number] Basophils (Bld) [#/Vol] 0.04 10*3/uL Normal 0.00 - 0.1 0 [facility] Comment on above: Performed By: #### B MP #### [address] [id number] Basophils/100 WBC (Bld) 0.7 % Normal 0.0 - 2.0 [facility] Comment on above: Performed By: #### B MP #### [address] [id number] Eosinophils (Bld) [#/Vol] 0.04 10*3/uL Normal 0.00 - 0.70 [facility] Comment on above: Performed By: #### B MP #### [address] [id number] Eosinophils/100 WBC (Bld) 0.7 % Normal 0.0 - 6.0 [facility] Comment on above: Performed By: #### B MP #### [address] [id number] Erythrocyte distribution width (RBC) [Ratio] 12.5 % Normal 11.5 - 14.5 [facility] Comment on above: Performed By: #### B MP #### [address] [id number] Hematocrit (Bld) [Volume fraction] 41.1 % Normal 36.0 - 46.0 [facility] Comment on above: Performed By: #### B MP #### [address] [id number] Hemoglobin (Bld) [Mass/Vol] 13.2 g/dL Normal 12.0 - 16.0 [facility] Comment on above: Performed By: #### B MP #### [address] [id number] Lymphocytes (Bld) [#/Vol] 2.25 10*3/uL Normal 1.20 - 4.80 [facility] Comment on above: Performed By: #### B MP #### [address] [id number] Lymphocytes/100 WBC (Bld) 40.6 % Normal 13.0 - 44.0 [facility] Comment on above: Performed By: #### B MP #### [address] [id number] MCHC (RBC) [Mass/Vol] 32.1 g/dL Normal 32.0 - 36.0 [facility] Comment on above: Performed By: #### B MP #### [address] [id number] MCV (RBC) [Entitic vol] 90 fL Normal 80 - 100 [facility] Comment on above: Performed By: #### B MP #### [address] [id number] Monocytes (Bld) [#/Vol] 0.49 10*3/uL Normal 0.10 - 1.0 0 [facility] Comment on above: Performed By: #### B MP #### [address] [id number] Monocytes/100 WBC (Bld) 8.8 % Normal 2.0 - 10.0 [facility] Comment on above: Performed By: #### B MP #### [address] [id number] Neutrophils (Bld) [#/Vol] 2.70 10*3/uL Normal 1.20 - 7.70 [facility] Comment on above: Performed By: #### B MP #### [address] [id number] Neutrophils/100 WBC (Bld) 48.8 % Normal 40.0 - 80.0 [facility] Comment on above: Performed By: #### B MP #### [address] [id number] Platelets (Bld) [#/Vol] 360 10*3/uL Normal 150 - 450 [facility] Comment on above: Performed By: #### B MP #### [address] [id number] RBC 4.58 x10E12/L Normal 4.00 - 5.20 [facility] Comment on above: Performed By: #### B MP #### [address] [id number] WBC (Bld) [#/Vol] 5.5 10*3/uL Normal 4.4 - 11.3 [facility] Comment on above: Performed By: #### B MP #### [address] [id number] HEPATIC FUNCTION PANELon Albumin [Mass/Vol] 4.3 g/dL Normal 3.4 - 5.0 [facility] Comment on above: Performed By: #### B MP #### [address] [id number] ALP [Catalytic activity/Vol] 75 U/L Normal 33 - 110 [facility] Comment on above: Performed By: #### B MP #### [address] [id number] ALT [Catalytic activity/Vol] 26 U/L Normal 7 - 45 [facility] Comment on above: Result Comment: Deisy ents treated with Sulfasalazine may generate falsely decreased results for ALT. Performed By: #### B MP #### [address] [id number] AST [Catalytic activity/Vol] 21 U/L Normal 9 - 39 [facility] Comment on above: Performed By: #### B MP #### [address] [id number] Bilirubin [Mass/Vol] 0.4 mg/dL Normal 0.0 - 1.2 [facility] Comment on above: Performed By: #### B MP #### [address] [id number] Bilirubin.indirect [Mass/Vol] 0.1 mg/dL Normal 0.0 - 0.3 [facility] Comment on above: Performed By: #### B MP #### [address] [id number] Protein [Mass/Vol] 7.6 g/dL Normal 6.4 - 8.2 [facility] Comment on above: Performed By: #### B MP #### [address] [id number] LACTATEon 06-08-2021 Lactate [Moles/Vol] 1.3 mmol/L Normal 0.4 - 2.0 [facility] Comment on above: Result Comment: Delicia puncture immediately after or during the administration of Metamizole may lead to falsely low results. Testing should be performed immediately prior to Metamizole dosing. Performed By: #### B MP #### [address] [id number] LIPASEon 06-08-2021 Lipase [Catalytic activity/Vol] 38 U/L Normal 9 - 82 [facility] Comment on above: Result Comment: Delicia puncture immediately after or during the administration of Metamizole may lead to falsely low results. Testing should be performed immediately prior to Metamizole dosing. S-hpstoh-d-benzoquinone imine (metabolite of Acetaminophen) will generate erroneously low results in samples for patients that have taken toxic doses of acetaminophen. Performed By: #### B #### [address] [id number] Provider Note - ED v3on 05-19 Provider [...] Crohn's flareup. She is visiting here from [place]. The pain is described as sharp and [...] + Differentia (more content not included)... Normal [facility] Triage - EDon 06-08-2021 Triage - ED Quick Triage: Are You no Have You Given In The Last 6 Weeksno Are You Currently Breastfeedingno Chart Review: PRIMARY ASSESSMENT NICKI OVIEDO's primary assessment is Within Defined Limits. The airway is open and patent. Breathing spontaneous and unlabored with clear breath sounds bilaterally. Circulation is normal with good peripheral pulses. Skin is warm and dry and color is normal for race. ARRIVAL INFORMATION Means of Arrival: Ambulatory Mode of Arrival: private vehicle Arrival From: home Accompanied By: self Language: Spoken Language Preferred: Algerian Reading Language Preferred: Algerian CHIEF COMPLAINT NICKI OVIEDO is a Female [...] Mask applied: yes Last menstrual period: 13-May-2021 MEDICAL TRANSCRIBER History: (None) Patient has homicidal thoughts: no [...] International locations in the past 30 days ([place], [place]) PAIN Pain Scale Used: ROCKY Pain Assessment: [...] 08-Jun-2021 04:15 by Cindy Zapien (ADRIANNA) Normal [facility] URINALYSISon 06-08-2021 Appearance (U) HAZY Normal CLEAR [facility] Comment on above: Performed By: #### T [facility] #### [address] [id number] Bilirubin Ql (U) Negative Normal NEGATIVE [facility] Comment on above: Performed By: #### T RPHS #### [address] [id number] Color (U) YELLOW Normal STRAW,YELLOW [facility] Comment on above: Performed By: #### T RPHS #### [address] [id number] Glucose Ql (U) Negative Normal NEGATIVE [facility] Comment on above: Performed By: #### T RPHS #### [address] [id number] Hemoglobin Ql (U) Negative Normal NEGATIVE [facility] Comment on above: Performed By: #### T RPHS #### [address] [id number] Ketones Ql (U) Negative Normal NEGATIVE [facility] Comment on above: Performed By: #### T RP #### [address] [id number] Leukocyte esterase Test strip Ql (U) Negative Normal NEGATIVE [facility] Comment on above: Performed By: #### T RPHS #### [address] [id number] Nitrite Ql (U) Negative Normal NEGATIVE [facility] Comment on above: Performed By: #### T RPHS #### [address] [id number] pH (U) 5.0 [pH] Normal 5.0 - 8.0 [facility] Comment on above: Performed By: #### T RPHS #### [address] [id number] Protein Ql (U) Negative Normal NEGATIVE [facility] Comment on above: Performed By: #### T RPHS #### [address] [id number] Specific gravity (U) [Rel density] 1.020 Normal 1.005 - 1.035 [facility] Comment on above: Performed By: #### T RPHS #### [address] [id number] Urobilinogen (U) [Mass/Vol] mg/dL Normal 0.0 - 1.9 [facility] Comment on above: Performed By: #### T RPHS #### [address] [id number] BASIC METABOLIC PANELon 12- Anion gap [Moles/Vol] 16 mmol/L Normal 10 - 20 [facility] Comment on above: Performed By: #### B MP #### [address] [id number] Calcium [Mass/Vol] 9.1 mg/dL Normal 8.6 - 10.3 [facility] Comment on above: Performed By: #### B MP #### [address] [id number] Chloride [Moles/Vol] 102 mmol/L Normal 98 - 107 [facility] Comment on above: Performed By: #### B MP #### [address] [id number] Creatinine [Mass/Vol] 0.79 mg/dL Normal 0.50 - 1.05 [facility] Comment on above: Performed By: #### B MP #### [address] [id number] GFR- AM. >60 Normal >60 [facility] Comment on above: Result Comment: CALC ULATIONS OF ESTIMATED GFR ARE PERFORMED USING THE MDRD STUDY EQUATION FOR THE IDMS-TRACEABLE CREATININE METHODS. CLIN CHEM 2007;53:766-72 Performed By: #### B MP #### [address] [id number] GFR-NON AM. >60 Normal >60 [facility] Comment on above: Performed By: #### B MP #### [address] [id number] Glucose [Mass/Vol] 171 mg/dL High 74 - 99 [facility] Comment on above: Performed By: #### B MP #### [address] [id number] HCO3 (Bld) [Moles/Vol] 21 mmol/L Normal 21 - 32 [facility] Comment on above: Performed By: #### B MP #### [address] [id number] Potassium [Moles/Vol] 4.5 mmol/L Normal 3.5 - 5.3 [facility] Comment on above: Result Comment: MILD HEMOLYSIS DETECTED. The result may be falsely elevated due to hemolysis or other interferents. Clinical correlation is recommended. Repeat testing may be considered. Performed By: #### B MP #### [address] [id number] Sodium [Moles/Vol] 134 mmol/L Low 136 - 145 [facility] Comment on above: Performed By: #### B MP #### [address] [id number] Urea nitrogen [Mass/Vol] 10 mg/dL Normal 6 - 23 [facility] Comment on above: Performed By: #### B MP #### [address] [id number] BLOOD CULTURE, BACTERIALon 1 07-31-2020 BLOOD CULTURE, BACTERIAL PATIENT: NICKI OVIEDO LOCATION: [facility] IMAN#: [id number] : 79 AGE: SEX: F ORDERED BY: MARTY NEVES SOURCE: Blood COLLECTED: 05/30/21 08:35 ANTIBIOTICS AT JULI.: RECEIVED : 05/30/21 13:50 SITE: R E S U L T S BLOOD CULTURE, BACTERIAL FINAL 06/04/21 15:42 No Growth at 1 days No Growth at 2 days No Growth at 3 days No Growth at 4 days NO GROWTH - FINAL REPORT Normal [facility] Comment on above: Performed By: #### B C #### [facility] [address] [place] [address] BLOOD CULTURE, BACTERIAL PATIENT: NICKI OVIEDO LOCATION: [place] [facility]#: [id number] : 79 AGE: SEX: F ORDERED BY: MARTY NEVES SOURCE: Blood COLLECTED: 05/30/21 08:35 ANTIBIOTICS AT JULI.: RECEIVED : 05/30/21 13:52 SITE: R E S U L T S BLOOD CULTURE, BACTERIAL FINAL 06/04/21 15:42 No Growth at 1 days No Growth at 2 days No Growth at 3 days No Growth at 4 days NO GROWTH - FINAL REPORT Normal [facility] Comment on above: Performed By: #### T RPHS #### [address] [id number] CBC AND DIFFERENTIALon 05-30 % AUTOMATED IMMATURE GRAN 0.4 % Normal 0.0 - 0.9 [facility] Comment on above: Order Comment: Previ ous sample clotted Result Comment: Renita ture Granulocyte Count (IG) includes promyelocytes, myelocytes and metamyelocytes but does not include bands. Percent differential counts (%) should be interpreted in the context of the absolute cell counts (cells/L). Performed By: #### L IPAS #### [address] [id number] Basophils (Bld) [#/Vol] 0.04 10*3/uL Normal 0.00 - 0.1 0 [facility] Comment on above: Order Comment: Previ ous sample clotted Performed By: #### L IPAS #### [address] [id number] Basophils/100 WBC (Bld) 0.8 % Normal 0.0 - 2.0 [facility] Comment on above: Order Comment: Previ ous sample clotted Performed By: #### L IPAS #### [address] [id number] Eosinophils (Bld) [#/Vol] 0.07 10*3/uL Normal 0.00 - 0.70 [facility] Comment on above: Order Comment: Previ ous sample clotted Performed By: #### L IPAS #### [address] [id number] Eosinophils/100 WBC (Bld) 1.4 % Normal 0.0 - 6.0 [facility] Comment on above: Order Comment: Previ ous sample clotted Performed By: #### L IPAS #### [address] [id number] Erythrocyte distribution width (RBC) [Ratio] 12.4 % Normal 11.5 - 14.5 [facility] Comment on above: Order Comment: Previ ous sample clotted Performed By: #### L IPAS #### [address] [id number] Hematocrit (Bld) [Volume fraction] 37.7 % Normal 36.0 - 46.0 [facility] Comment on above: Order Comment: Previ ous sample clotted Performed By: #### L IPAS #### [address] [id number] Hemoglobin (Bld) [Mass/Vol] 12.2 g/dL Normal 12.0 - 16.0 [facility] Comment on above: Order Comment: Previ ous sample clotted Performed By: #### L IPAS #### [address] [id number] Lymphocytes (Bld) [#/Vol] 1.54 10*3/uL Normal 1.20 - 4.80 [facility] Comment on above: Order Comment: Previ ous sample clotted Performed By: #### L IPAS #### [address] [id number] Lymphocytes/100 WBC (Bld) 30.2 % Normal 13.0 - 44.0 [facility] Comment on above: Order Comment: Previ ous sample clotted Performed By: #### L IPAS #### [address] [id number] MCHC (RBC) [Mass/Vol] 32.4 g/dL Normal 32.0 - 36.0 [facility] Comment on above: Order Comment: Previ ous sample clotted Performed By: #### L IPAS #### [address] [id number] MCV (RBC) [Entitic vol] 89 fL Normal 80 - 100 U [facility] Comment on above: Order Comment: Previ ous sample clotted Performed By: #### L IPAS #### [address] [id number] Monocytes (Bld) [#/Vol] 0.54 10*3/uL Normal 0.10 - 1.0 0 [facility] Comment on above: Order Comment: Previ ous sample clotted Performed By: #### L IPAS #### [address] [id number] Monocytes/100 WBC (Bld) 10.6 % Normal 2.0 - 10.0 U [facility] Comment on above: Order Comment: Previ ous sample clotted Performed By: #### L IPAS #### [address] [id number] Neutrophils (Bld) [#/Vol] 2.89 10*3/uL Normal 1.20 - 7.70 [facility] Comment on above: Order Comment: Previ ous sample clotted Performed By: #### L IPAS #### [address] [id number] Neutrophils/100 WBC (Bld) 56.6 % Normal 40.0 - 80.0 [facility] Comment on above: Order Comment: Previ ous sample clotted Performed By: #### L IPAS #### [address] [id number] Platelets (Bld) [#/Vol] 322 10*3/uL Normal 150 - 450 [facility] Comment on above: Order Comment: Previ ous sample clotted Performed By: #### L IPAS #### [address] [id number] RBC 4.23 x10E12/L Normal 4.00 - 5.20 [facility] Comment on above: Order Comment: Previ ous sample clotted Performed By: #### L IPAS #### [address] [id number] WBC (Bld) [#/Vol] 5.1 10*3/uL Normal 4.4 - 11.3 [facility] Comment on above: Order Comment: Previ ous sample clotted Performed By: #### L IPAS #### [address] [id number] % AUTOMATED IMMATURE GRAN Canceled Normal [facility] Comment on above: Order Comment: TEST CBC AND DIFFERENTIAL WAS CANCELLED, 05/30/2021 08:57 SPECIMENCLOTTED.PLEASE RESUBMIT. Result Comment: Renita ture Granulocyte Count (IG) includes promyelocytes, myelocytes and metamyelocytes but does not include bands. Percent differential counts (%) should be interpreted in the context of the absolute cell counts (cells/L). Performed By: #### B MP #### [address] [id number] % BASOPHIL Canceled Normal [facility] Comment on above: Order Comment: TEST CBC AND DIFFERENTIAL WAS CANCELLED, 05/30/2021 08:57 SPECIMENCLOTTED.PLEASE RESUBMIT. Performed By: #### B MP #### [address] [id number] % EOSINOPHIL Canceled Normal [facility] Comment on above: Order Comment: TEST CBC AND DIFFERENTIAL WAS CANCELLED, 05/30/2021 08:57 SPECIMENCLOTTED.PLEASE RESUBMIT. Performed By: #### B MP #### [address] [id number] % LYMPHOCYTE Canceled Normal [facility] Comment on above: Order Comment: TEST CBC AND DIFFERENTIAL WAS CANCELLED, 05/30/2021 08:57 SPECIMENCLOTTED.PLEASE RESUBMIT. Performed By: #### B MP #### [address] [id number] % MONOCYTE Canceled Normal [facility] Comment on above: Order Comment: TEST CBC AND DIFFERENTIAL WAS CANCELLED, 05/30/2021 08:57 SPECIMENCLOTTED.PLEASE RESUBMIT. Performed By: #### B MP #### [address] [id number] % NEUTROPHIL Canceled Normal [facility] Comment on above: Order Comment: TEST CBC AND DIFFERENTIAL WAS CANCELLED, 05/30/2021 08:57 SPECIMENCLOTTED.PLEASE RESUBMIT. Performed By: #### B MP #### [address] [address] [id number] BASOPHIL Canceled Normal [facility] Comment on above: Order Comment: TEST CBC AND DIFFERENTIAL WAS CANCELLED, 05/30/2021 08:57 SPECIMENCLOTTED.PLEASE RESUBMIT. Performed By: #### B MP #### [address] [id number] DIFFERENTIAL Canceled Normal [facility] Comment on above: Order Comment: TEST CBC AND DIFFERENTIAL WAS CANCELLED, 05/30/2021 08:57 SPECIMENCLOTTED.PLEASE RESUBMIT. Performed By: #### B MP #### [address] [id number] EOSINOPHIL Canceled Normal [facility] Comment on above: Order Comment: TEST CBC AND DIFFERENTIAL WAS CANCELLED, 05/30/2021 08:57 SPECIMENCLOTTED.PLEASE RESUBMIT. Performed By: #### B MP #### [address] [id number] HCT Canceled Normal [facility] Comment on above: Order Comment: TEST CBC AND DIFFERENTIAL WAS CANCELLED, 05/30/2021 08:57 SPECIMENCLOTTED.PLEASE RESUBMIT. Performed By: #### B MP #### [address] [id number] HGB Canceled Normal [facility] Comment on above: Order Comment: TEST CBC AND DIFFERENTIAL WAS CANCELLED, 05/30/2021 08:57 SPECIMENCLOTTED.PLEASE RESUBMIT. Performed By: #### B MP #### [address] [id number] LYMPHOCYTE Canceled Normal [facility] Comment on above: Order Comment: TEST CBC AND DIFFERENTIAL WAS CANCELLED, 05/30/2021 08:57 SPECIMENCLOTTED.PLEASE RESUBMIT. Performed By: #### B MP #### [address], [place] [id number] MCHC Canceled Normal [facility] Comment on above: Order Comment: TEST CBC AND DIFFERENTIAL WAS CANCELLED, 05/30/2021 08:57 SPECIMENCLOTTED.PLEASE RESUBMIT. Performed By: #### B MP #### [address] [id number] MCV Canceled Normal [facility] Comment on above: Order Comment: TEST CBC AND DIFFERENTIAL WAS CANCELLED, 05/30/2021 08:57 SPECIMENCLOTTED.PLEASE RESUBMIT. Performed By: #### B MP #### [address], [place] [id number] MONOCYTE Canceled Normal [facility] Comment on above: Order Comment: TEST CBC AND DIFFERENTIAL WAS CANCELLED, 05/30/2021 08:57 SPECIMENCLOTTED.PLEASE RESUBMIT. Performed By: #### B MP #### [address], [place] [id number] NEUTROPHIL Canceled Normal [facility] Comment on above: Order Comment: TEST CBC AND DIFFERENTIAL WAS CANCELLED, 05/30/2021 08:57 SPECIMENCLOTTED.PLEASE RESUBMIT. Performed By: #### B MP #### [address] [id number] NUCLEATED RBC Canceled Normal [facility] Comment on above: Order Comment: TEST CBC AND DIFFERENTIAL WAS CANCELLED, 05/30/2021 08:57 SPECIMENCLOTTED.PLEASE RESUBMIT. Performed By: #### B MP #### [address] [id number] PLT Canceled Normal [facility] Comment on above: Order Comment: TEST CBC AND DIFFERENTIAL WAS CANCELLED, 05/30/2021 08:57 SPECIMENCLOTTED.PLEASE RESUBMIT. Performed By: #### B MP #### [address], [place] [id number] RBC Canceled Normal [facility] Comment on above: Order Comment: TEST CBC AND DIFFERENTIAL WAS CANCELLED, 05/30/2021 08:57 SPECIMENCLOTTED.PLEASE RESUBMIT. Performed By: #### B MP #### [address] [id number] RDW-CV Canceled Normal [facility] Comment on above: Order Comment: TEST CBC AND DIFFERENTIAL WAS CANCELLED, 05/30/2021 08:57 SPECIMENCLOTTED.PLEASE RESUBMIT. Performed By: #### B MP #### [address] [id number] WBC Canceled Normal [facility] Comment on above: Order Comment: TEST CBC AND DIFFERENTIAL WAS CANCELLED, 05/30/2021 08:57 SPECIMENCLOTTED.PLEASE RESUBMIT. Performed By: #### B MP #### [address] [id number] Clinical Event Noteon 2020 Clinical Event Note [...] on chronic medication for Crohn's. Patient took Ellinger for pain prior to arrival with minimal [...] 30-May-2021 05:29 by Marty Neves (PAC) Normal [facility] Consult-Acute Care Surgeryon 05-30-2021 Consult-Acute Care [...] and was evaluated by her PCP in [place] (where patient is from and is currently visiting family in [place]). She notes an ultrasound was completed and [...] she was evaluated by her PCP (in [place]) where ultrasound was obtained with findings concerning for hematoma/seroma. Since ultrasound 1 week ago, area has increased in size with worsening pain, erythema and warmth. She is from [place] and is visiting her family here in [place]. She is scheduled to return to [place] tomorrow. CT abdomen/pelvis reviewed. Shows 13 cm [...] week Patient (more content not included)... Normal [facility] FUNGAL CULTURE/SM, Brittney FUNGAL CULTURE/SM, [facility] [place] [place] PATIENT: NICKI OVIEDO LOCATION: [place]IO#: [id number] : 79 AGE: SEX: F ORDERED BY: EDEI RODRIGES SOURCE: WOUND/ABSCESS COLLECTED: 05/30/21 15:12 ANTIBIOTICS AT JULI.: RECEIVED : 05/30/21 21:11 SITE: abdominal wall R E S U L T S FUNGAL SMEAR FINAL 05/31/21 12:47 FLUORESCENT FUNGAL STAIN: NEGATIVE FUNGAL CULTURE/SM, MISC FINAL 06/20/21 15:33 NO FUNGI ISOLATED. Normal [facility] Comment on above: Performed By: #### B MP #### [address] [id number] HCG,SERUM QUALITATIVEon 05-18 HCG,SERUM QUALITATIVE Negative Normal Negative [facility] Comment on above: Performed By: #### H CGS #### [address] [id number] HEPATIC FUNCTION PANELon Albumin [Mass/Vol] 3.9 g/dL Normal 3.4 - 5.0 [facility] Comment on above: Performed By: #### T RPHS #### [address] [id number] ALP [Catalytic activity/Vol] 97 U/L Normal 33 - 110 [facility] Comment on above: Performed By: #### T RPHS #### [address] [id number] ALT [Catalytic activity/Vol] 18 U/L Normal 7 - 45 [facility] Comment on above: Result Comment: Deisy ents treated with Sulfasalazine may generate falsely decreased results for ALT. Performed By: #### T RPHS #### [address] [id number] AST [Catalytic activity/Vol] 19 U/L Normal 9 - 39 [facility] Comment on above: Result Comment: MILD HEMOLYSIS DETECTED. The result may be falsely elevated due to hemolysis or other interferents. Clinical correlation is recommended. Repeat testing may be considered. Performed By: #### T RPHS #### [address] [id number] Bilirubin [Mass/Vol] 0.5 mg/dL Normal 0.0 - 1.2 [facility] Comment on above: Performed By: #### T RPHS #### [address] [id number] Bilirubin.indirect [Mass/Vol] 0.1 mg/dL Normal 0.0 - 0.3 [facility] Comment on above: Result Comment: MILD HEMOLYSIS DETECTED. The result may be falsely decreased due to hemolysis or other interferents. Clinical correlation is recommended. Repeat testing may be considered. Performed By: #### T RPHS #### [address] [id number] Protein [Mass/Vol] 7.2 g/dL Normal 6.4 - 8.2 [facility] Comment on above: Performed By: #### T RPHS #### [address] [id number] INFLUENZA A/B, COVID 2019 PC R,SYMPTOMATICon 05-30-2021 DATE OF SYMPTOM ONSET [YYYYMMDD]? Canceled Normal [facility] Comment on above: Order Comment: TEST INFLUENZA A/B, COVID 2019 PCR,SYMPTOMATIC WAS CANCELLED, 117:22 Performed By: #### L IPAS #### [address] [id number] INFLUENZA A, PCR Canceled Normal [facility] Comment on above: Order Comment: TEST INFLUENZA A/B, COVID 2019 PCR,SYMPTOMATIC WAS CANCELLED, 117:22 Result Comment: Resp iratory virus testing is performed routinely by PCR for Influenza A/B and RSV. Not Detected results do not preclude Influenza A/B or RSV infections since the adequacy of sample collection or low viral burden may impact the clinical sensitivity of this test method. Performed By: #### L IPAS #### [address] [id number] INFLUENZA B, PCR Canceled Normal [facility] Comment on above: Order Comment: TEST INFLUENZA A/B, COVID 2019 PCR,SYMPTOMATIC WAS CANCELLED, 117:22 Result Comment: Resp iratory virus testing is performed routinely by PCR for Influenza A/B and RSV. Not Detected results do not preclude Influenza A/B or RSV infections since the adequacy of sample collection or low viral burden may impact the clinical sensitivity of this test method. Performed By: #### L IPAS #### [address] [id number] SARS-CoV-2 (COVID-19) RNA MIGUEL+probe Ql (Unsp spec) Canceled Normal [facility] Comment on above: Order Comment: TEST INFLUENZA A/B, COVID 2019 PCR,SYMPTOMATIC WAS CANCELLED, 117:22 Result Comment: . This test has received FDA Emergency Use Authorization (EUA) and has been verified by [facility]. This test is only authorized for the duration of time that circumstances exist to justify the authorization of the emergency use of in vitro diagnostic tests for the detection of SARS-CoV-2 virus and/or diagnosis of COVID-19 infection under section 564(b)(1) of the Act, 21 U.S.C. 360bbb-3(b)(1), unless the authorization is terminated or revoked sooner. [facility] is certified under CLIA-88 as qualified to perform high complexity testing. Testing is performed in the [facility] laboratory located at [address] [place] [address]. SARS-CoV-2/Flu/RSV Multiplex Test: Fact sheet for providers: https://www.fda.gov/media/694201/download Fact sheet for patients: https://www.fda.gov/media/040676/download Performed By: #### L IPAS #### [address] [id number] DATE OF SYMPTOM ONSET [YYYYMMDD]? Canceled Normal [facility] Comment on above: Order Comment: TEST INFLUENZA A/B, COVID 2019 PCR,SYMPTOMATIC WAS CANCELLED, 111:25 Performed By: #### L IPAS #### [address] [id number] INFLUENZA A, PCR Canceled Normal [facility] Comment on above: Order Comment: TEST [...] method. Performed By: #### L IPAS #### [address] [id number] INFLUENZA B, PCR Canceled Normal [facility] Comment on above: Order Comment: TEST [...] method. Performed By: #### L IPAS #### [address] [id number] SARS-CoV-2 (COVID-19) RNA MIGUEL+probe Ql (Unsp spec) Canceled Normal [facility] Comment on above: Order Comment: TEST INFLUENZA A/B, COVID 2019 PCR,SYMPTOMATIC WAS CANCELLED, :25 Result Comment: . This test has received FDA Emergency Use Authorization (EUA) and has been verified by [facility]. This test is only authorized for the duration of time that circumstances exist to justify the authorization of the emergency use of in vitro diagnostic tests for the detection of SARS-CoV-2 virus and/or diagnosis of COVID-19 infection under section 564(b)(1) of the Act, 21 U.S.C. 360bbb-3(b)(1), unless the authorization is terminated or revoked sooner. [facility] is certified under CLIA-88 as qualified to perform high complexity testing. Testing is performed in the [facility] laboratory located at [address] [place] [address], [place] [address]. SARS-CoV-2/Flu/RSV Multiplex Test: Fact sheet for providers: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 Performed By: #### C MP #### [address] [id number] Urea nitrogen [Mass/Vol] 11 mg/dL Normal 6 - 23 [facility] Comment on above: Performed By: #### C MP #### [address] [id number] CORONAVIRUS 2019 BY PCRon SARS-CoV-2 (COVID-19) RNA MIGUEL+probe Ql (Unsp spec) Not detected Normal Not Detected [facility] Comment on above: Result Comment: . This test has received FDA Emergency Use Authorization (EUA) and has been verified by [facility]. This test is only authorized for the duration of time that circumstances exist to justify the authorization of the emergency use of in vitro diagnostic tests for the detection of SARS-CoV-2 virus and/or diagnosis of COVID-19 infection under section 564(b)(1) of the Act, 21 U.S.C. 360bbb-3(b)(1), unless the authorization is terminated or revoked sooner. [facility] is certified under CLIA-88 as qualified to perform high complexity testing. Testing is performed in the [facility] laboratory located at [address] [place] [address]. SARS-CoV-2/Flu/RSV Multiplex Test: Fact sheet for providers: https://www.fda.gov/media/715752/download Fact sheet for patients: https://www.fda.gov/media/986092/download Performed By: #### U AMIC #### [address] [id number] Lab Specimen Source Nasal, Nasopharyngeal Normal [facility] Comment on above: Performed By: #### U AMIC #### [address] [id number] DATE OF SYMPTOM ONSET [YYYYMMDD]? [id number] Normal [facility] Comment on above: Performed By: #### U AMIC #### [address] [id number] [address] ABD/PELVIS WO CONon 04-09 CT ABD/PELVIS [...] by: OWEN CLEMENTS Date: 2021-04-09 03:28 Normal [facility] Covid 19 Resultson SARS-CoV-2 (COVID-19) RNA MIGUEL+probe Ql (Unsp spec) [...] You may also be contacted by the [facility] [place] [facility] to see if any of your close [...] or Naproxen (Aleve) can also be used. Vtwh-gse-yihtdqd cough and cold medicines can be used according to the instructions on the package. Some yvnd-eyp-muyfxjj medicines also contain acetaminophen. Make sure you [...] water are not available, use alcohol-based hand cascade operator. Avoid touching your eyes, nose, and mouth [...] 24 gloria (more content not included)... Normal [facility] ED Clinical Summaryon 2020 ED Clinical Summary [facility] Emergency Department [address] [place] [id number] ED Clinical Summary PERSON INFORMATION Name: NICKI OVIEDO Age: 45 Years Sex: FEMALE : 1975 MRN: Acct#: Visit Reason: Diarrhea; Abdominal pain; ABD PAIN, VOMITING, DIARRHEA Arrival: 04/09/2021 00:04:46 Discharge: 04/09/2021 01:21:00 LOS: 000 01:17 Check In: 04/09/2021 00:04:46 Checkout:04/09/2021 01:21:00 Address: [address] [place] [address] PCP: Duke Velazquez PROVIDER INFORMATION Provider Role Assigned Unassigned Jorge A Paulino DO ED Provider 04/09/2021 00:11:01 Anders Grant TUBE CARRIER Nurse 04/09/2021 00:14:23 VITALS INFORMATION Vital Sign [...] did not see her family doctor in [place], came down here to visit family this [...] can follow-up with her family doctor in [place]. To this the patient agrees. She states [...] PO, Once. Impression and Plan Diagnosis Enteritis (LXR42-NQ K52.9, Discharge, Medical) hx Crohn's Plan Condition: [...] T H JEFFERSON< ER PHYSICIAN< H Rodrigo Medina. DISCHARGE INFORMATION: Discharge Disposition: Home Discharge Location: Home PATIENT EDUCATION INFORMATION Instructions: Viral Gastroenteritis, Adult Follow-Up: With: Address: When: Duke Velazquez [address] [place] [address] Business (1) Within 3 to 5 days Comments: home we have provided Zofran, and steroids clear liquids only for 24 hours, then move to more solids, but no dairy for 48 hours You are welcomed to return anytime T H JEFFERSON< ER PHYSICIAN< H Rodrigo Medina DIAGNOSIS: Enteritis Patient Understands: Yes - Patient/family/caregi debo verbalizes understanding of instructions given Comment: [facility] ED Note - Physicianon 2020 ED [...] did not see her family doctor in [place], came down here to visit family this [...] can follow-up with her family doctor in [place]. To this the patient agrees. She states [...] PO, Once. Impression and Plan Diagnosis Enteritis (QFB90-RY K52.9, Discharge, Medical) hx Crohn's Plan Condition: [...] return anytime T H JEFFERSON< ER PHYSICIAN< Merrill Medina. [Electronically Signed on: 04/09/2021 00:53 EDT] Jorge A Paulino DO [Electronically Signed on: 04/09/2021 01:01 EDT] Jorge A Paulino DO [Verified on: 04/09/2021 00:53 EDT] Jorge A Paulino DO [facility] ED Note-Nursingon 04-09-2021 ED Note-Nursing Patient came in C/O abdominal pain 8 on pain scale with nausea and vomiting. patient stated this happens due to Crohn's disease. [facility] ED Patient Summaryon 021 ED Patient Summary [facility] - Emergency Department [address] [place] [address] PATIENT DISCHARGE INSTRUCTIONS Patient Information Name: NICKI OVIEDO Age: 45 Years Date of : 1975 Reason For Visit: Diarrhea; Abdominal pain; ABD PAIN, VOMITING, DIARRHEA Arrival Time: 04/09/2021 00:04:46 Primary Care Physician: Duke Velazquez Attending Physician: Jorge A Paulino DO Comment: Visit Diagnosis: Diagnoses This Visit Abdominal pain ([id number]) Diarrhea ([id number]) Enteritis (K52.9) Prescription Information: If you have been given a prescription for narcotics, seek immediate medical attention if you have any difficulty breathing or any sudden status changes such as confusion and sleepiness. If you or anyone you know is experiencing suicidal thoughts, mental health, alcohol and/or drug addiction problems; contact the [facility] 08/01 Crisis Hotline -Text 3VTRZ lb 796064. If you received any narcotics, sedation, or [...] any legal documents With: Address: When: Duke Velazquez [address] [place] [address] Business (1) Within 3 to 5 days Comments: home we have provided Zofran, and steroids clear liquids only for 24 hours, then move to more solids, but no dairy for 48 hours You are welcomed to return anytime T H JEFFERSON< ER PHYSICIAN< H B [facility] Medication Information: The exam and treatment you received today in the [facility] Emergency Department were for an urgent problem and are not intended as complete care. It is important for you to follow up with a doctor, nurse practitioner, or physician?s commercial escrow assistant for ongoing care. If your symptoms [...] so we can reach you if necessary. [facility] Emergency Department has provided you with a complete list of medications post discharge. 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 Normal [facility] ER URINE PROFILEon 1 Bilirubin Ql (U) Negative Normal NEGATIVE [facility] Comment on above: Performed By: #### E RUR ####[facility] [address] [place] [address]Dr. Phi Souza Clarity (U) CLEAR Normal CLEAR [facility] Comment on above: Performed By: #### E RUR ####[facility] [address] [place], [place] [address]Dr. Phi Souza Color (U) LT. YELLOW Normal YELLOW [facility] Comment on above: Performed By: #### E RUR ####[facility] [address] [place], [place] [address]Dr. Donnaerika Souza ERUAHD A micrscopic examination will be performed if indicated. Normal [facility] Comment on above: Performed By: #### E RUR ####[facility] [address] [place], [place] [address]Dr. Phi Souza Glucose Ql (U) Negative Normal NEGATIVE [facility] Comment on above: Performed By: #### E RUR ####[facility] [address] [place], [place] [address]Dr. Phi Souza Hemoglobin Ql (U) Negative Normal NEGATIVE [facility] Comment on above: Performed By: #### E RUR ####[facility] [address] [place], [place] [address]Dr. Phi Souza Ketones Ql (U) Negative Normal NEGATIVE [facility] Comment on above: Performed By: #### E RUR ####[facility] [address] [place], [place] [address]Dr. Phi Souza LEUKOCYTES Negative Normal NEGATIVE [facility] Comment on above: Performed By: #### E RUR ####[facility] [address] [place], [place] [address]Dr. Phi Souza Nitrite Ql (U) Negative Normal NEGATIVE [facility] Comment on above: Performed By: #### E RUR ####[facility] [address] [place], [place] [address]Dr. Donnaerika Souza pH (U) 6.0 [pH] Normal 5-9 [facility] Comment on above: Performed By: #### E RUR ####[facility] [address] [place] [id number]. Phi Souza SPEC GRAVITY 1.025 Normal 1.005-<=1.02 5 [facility] Comment on above: Performed By: #### E RUR ####[facility] [address] [place] [id number]. Phi Souza UA PROTEIN Negative Normal NEGATIVE/ TRACE [facility] Comment on above: Performed By: #### E RUR ####[facility] [address] [place] [id number]. Phi Souza UR MICRO IND NOT INDICATED Normal [facility] Comment on above: Performed By: #### E RUR ####[facility] [address] [place] [id number]. Phi Souza Urobilinogen Qn (U) 0.2 {Gianni'U}/dL Normal 0.2 - 1. 0 [facility] Comment on above: Performed By: #### E RUR ####[facility] [id number] [place] [id number]. Phi Souza HCG,URINEon 04-09-2021 Beta HCG ( test) Ql (U) Negative Normal Negative [facility] Comment on above: Performed By: #### L IPAS #### [address] [id number] LIPASEon 04-09-2021 Lipase [Catalytic activity/Vol] 20 U/L Normal 9 - 82 [facility] Comment on above: Result Comment: Delicia puncture immediately after or during the administration of Metamizole may lead to falsely low results. Testing should be performed immediately prior to Metamizole dosing. I-wnyvwa-n-benzoquinone imine (metabolite of Acetaminophen) will generate erroneously low results in samples for patients that have taken toxic doses of acetaminophen. Performed By: #### L IPAS #### [address] [id number] Lipase [Catalytic activity/Vol] 80.0 U/L Normal 23.0-300.0 [facility] Comment on above: Performed By: #### C LORENA LIPA, NICKI ####[facility] [id number] [place] [id number]. Phi Souza PROF 14(COMP METB)on 021 Albumin [Mass/Vol] 3.3 g/dL Critically low 3.5-5.0 [facility] Comment on above: Performed By: #### C MP LIPA, NICKI ####[facility] [id number] [place] [id number]. Phi Souza Albumin/Globulin [Mass ratio] 0.8 {ratio} Normal [facility] Comment on above: Performed By: #### C LORENA LIPA, NICKI ####[facility] Bhbf[address]hiqsi[address] [place], [place] [address]Dr. Phi Souza ALP [Catalytic activity/Vol] 79 U/L Normal 38-126 [facility] Comment on above: Performed By: #### C LORENA LIPA, NICKI ####[facility] Iihpxodnxg[address] [place], [place] [address]Dr. Phi Souza ALT [Catalytic activity/Vol] 39 U/L Normal 9-52 [facility] Comment on above: Performed By: #### C LORENA LIPA, NICKI ####[facility] Mvffwalsbc[address] [place], [place] [address]Dr. Phi Souza Anion gap [Moles/Vol] 8.6 mmol/L Normal [facility] Comment on above: Performed By: #### C MP LIPA, NICKI ####[facility] Hdryilndsm[address] [place], [place] [address]Dr. Phi Souza AST [Catalytic activity/Vol] 18 U/L Normal 14-36 [facility] Comment on above: Performed By: #### C LORENA LIPA, NICKI ####[facility] Slgnzqanhe[address] [place], [place] [address]Dr. Phi Souza Bilirubin [Mass/Vol] 0.4 mg/dL Normal 0.2-1.3 [facility] Comment on above: Performed By: #### C MP LIPA, NICKI ####[facility] Mdmuwtdlou[address] [place], [place] [address]Dr. Phi Souza Calcium [Mass/Vol] 8.9 mg/dL Normal 8.4-10.2 [facility] Comment on above: Performed By: #### C NELA CARRILLO NICKI ####[facility] Oepmyteary[address] [place] [address]Dr. Phi Souza Chloride [Moles/Vol] 101 mmol/L Normal 98-107 [facility] Comment on above: Performed By: #### C NELA CARRILLO, NICKI ####[facility] Btxqadvmbx[address] [place], [place] [address]Dr. Phi Souza CO2 [Moles/Vol] 28.3 mmol/L Normal 22.0-30.0 [facility] Comment on above: Performed By: #### C NELA CARRILLO, NICKI ####[facility] Qwikfyywut[address] [place], [place] [address]Dr. Phi Souza Creatinine [Mass/Vol] 1.03 mg/dL Normal 0.52-1.04 [facility] Comment on above: Performed By: #### C NELA CARRILLO, NICKI ####[facility] Gptqqrozyl[address] [place], [place] [address]Dr. Phi Souza EGFR-AF BAHRAINI >60 Normal >=60 [facility] Comment on above: Performed By: #### C NELA CARRILLO, NICKI ####[facility] Scdnemzwew[address] [place], [place] [address]Dr. Phi Souza EGFR-NON AF BAHRAINI 58 mL/min/1.73m2 Critically low >=60 [facility] Comment on above: Performed By: #### C NELA CARRILLO, NICKI ####[facility] Unargsiazx[address] [place], [place] [address]Dr. Phi Souza Globulin (S) [Mass/Vol] 4.1 g/dL Normal [facility] Comment on above: Performed By: #### C NELA CARRILLO, NICKI ####[facility] Rwijxlcqgb[address] [place] [address]Dr. Phi Souza Glucose [Mass/Vol] 167 mg/dL Critically high 74-106 [facility] Comment on above: Performed By: #### C NELA CARRILLO, NICKI ####[facility] Evadlcctcs[address] [place] [address]Dr. Phi Souza Potassium [Moles/Vol] 3.9 mmol/L Normal 3.4-5.0 [facility] Comment on above: Performed By: #### C NELA CARRILLO, NICKI ####[facility] Dsbksrxpmx[address] [place] [address]Dr. Phi Souza Protein [Mass/Vol] 7.4 g/dL Normal 6.1-8.2 [facility] Comment on above: Performed By: #### C NELA CARRILLO, NICKI ####[facility] Falpuyzzfl[address] [place] [address]Dr. Phi Souza Sodium [Moles/Vol] 134 mmol/L Critically low 137-145 [facility] Comment on above: Performed By: #### C NELA CARRILLO, NICKI ####[facility] Fzxkrfpmmo[address] [place] [address]Dr. Phi Souza Urea nitrogen [Mass/Vol] 10.0 mg/dL Normal 7.0-17.0 [facility] Comment on above: Performed By: #### C NELA CARRILLO NICKI ####[facility] Tdcvmggqjt[address] [place] [address]Dr. Phi Souza Urea nitrogen/Creatinine [Mass ratio] 9.7 mg/mg Normal [facility] Comment on above: Performed By: #### C NELA CARRILLO, NICKI ####[facility] Kvxuytliyn[address] [place], [place] [address]Dr. Phi Souza Provider Note - ED v3on [...] endometriosis and Crohn's. HISTORY OF PRESENTING ILLNESS NCIKI is a 45 year old Female and [...] Reference Range: STRAW,YELLOW Appearance, Urine CLEAR Specific [place], Urine 1.014 pH, Urine 6.0 Protein, Urine [...] Authorization (EUA) and has been verified by [facility]. This test is only authorized for the duration of time that circumsta Date of Symptom Onset [id number] Complete Blood Count + Differential 09-Apr-2021 06:21:00 [...] CL 100 (more content not included)... Normal [facility] Risk Screen - Adult Emergenc yon [...] video; written material Cultural Considerationsnone Developmental Considerationsnone Episcopalian Considerationsnone Learning Assessment (Other Learner): Learning Assessment (Other Learner): Other learner availableno Pressure Injury/TB/Substance: Pressure Injury: Pressure Injury Present on Admissionno Do you have a coughno Smoking Statusnever smoker Alcohol Usedenies Drug Usedenies Admission Risk Screen: Significant IndicatorsComplete CAGE: CAGE: Is this an injured patient at a Trauma Center ([facility]/[place]/[facility]/[place]): no Electronic Signatures: Cindy Zapien (ADRIANNA) (Signed 09-Apr-2021 05:42) Authored: Preferred Language, Advanced Directives, Family Violence Adult, Learning Assessment (Patient), Learning Assessment (Other Learner), Pressure Injury/TB/Substance, Pressure Injury, CAGE Last Updated: 09-Apr-2021 05:42 by Cindy Zapien (RN) Normal [facility] UA MICROSCOPICon 04-09-2021 Mucus Ql (Urine sed) 1+ /LPF Normal [facility] Comment on above: Performed By: #### U AMIC #### [address] [id number] RBC 1 /HPF Normal 0-5 [facility] Comment on above: Performed By: #### U AMIC #### [address] [id number] SQUAMOUS EPITH. CELLS 1 /HPF Normal [facility] Comment on above: Performed By: #### U AMIC #### [address] [id number] WBC NONE Normal 0-5 [facility] Comment on above: Performed By: #### U AMIC #### [address] [id number] URINALYSIS WITH CULTURE IF I NDICATEDon 04-09-2021 Appearance (U) CLEAR Normal CLEAR [facility] Comment on above: Performed By: #### L IPAS #### [address] [id number] Bilirubin Ql (U) Negative Normal NEGATIVE [facility] Comment on above: Performed By: #### L IPAS #### [address] [id number] Color (U) YELLOW Normal STRAW,YELLOW [facility] Comment on above: Performed By: #### L IPAS #### [address] [id number] Glucose Ql (U) Negative Normal NEGATIVE [facility] Comment on above: Performed By: #### L IPAS #### [address] [id number] Hemoglobin Ql (U) MODERATE(2+) Abnormal NEGATIVE [facility] Comment on above: Performed By: #### L IPAS #### [address] [phone] Ketones Ql (U) Negative Normal NEGATIVE [facility] Comment on above: Performed By: #### L IPAS #### [address] [id number] Leukocyte esterase Test strip Ql (U) Negative Normal NEGATIVE [facility] Comment on above: Performed By: #### L IPAS #### [address] [id number] Nitrite Ql (U) Negative Normal NEGATIVE [facility] Comment on above: Performed By: #### L IPAS #### [address] [id number] pH (U) 6.0 [pH] Normal 5.0 - 8.0 [facility] Comment on above: Performed By: #### L IPAS #### [address] [id number] Protein Ql (U) Negative Normal NEGATIVE [facility] Comment on above: Performed By: #### L IPAS #### [address] [id number] Specific gravity (U) [Rel density] 1.014 Normal 1.005 - 1.035 [facility] Comment on above: Performed By: #### L IPAS #### [address] [id number] Urobilinogen (U) [Mass/Vol] mg/dL Normal 0.0 - 1.9 [facility] Comment on above: Performed By: #### L IPAS #### [address] [id number] CBC W Auto Differential pane l (Bld)on 01-30-2021 BASOPHIL ABSOLUTE COUNT 0.03 x10*3/uL Normal 0.0-0.1 [facility] Comment on above: Performed By: #### 5 7021-8 #### [facility] [address] [address] [facility] Basophils/100 WBC (Bld) 0.3 % Normal 0.0-1.1 [facility] Comment on above: Performed By: #### 5 7021-8 #### [facility] [address] [address] [facility] EOS ABSOLUTE COUNT 0.00 x10*3/uL Normal 0.0-0.5 [facility] Comment on above: Performed By: #### 5 7021-8 #### [facility] [address] [address] [facility] Eosinophils/100 WBC (Bld) 0.0 % Normal 0.0-6.0 [facility] Comment on above: Performed By: #### 5 7021-8 #### [facility] [address] [address] [facility] Hematocrit (Bld) [Volume fraction] 40.4 % Normal 36.0-48.0 [facility] Comment on above: Performed By: #### 5 7021-8 #### [facility] [address] Hemoglobin (Bld) [Mass/Vol] 13.5 g/dL Normal 11.0-17.0 [facility] Comment on above: Performed By: #### 5 7021-8 #### [facility] [address] IMMATURE GRAN ABSOLUTE COUNT 0.12 x10*3/uL Normal 0.0-0.5 [facility] Comment on above: Performed By: #### 5 7021-8 #### [facility] [address] Immature granulocytes/100 WBC (Bld) 1.0 % Normal 0.0-2.99 [facility] Comment on above: Performed By: #### 5 7021-8 #### [facility] [address] LYMPHOCYTE ABSOLUTE COUNT 0.82 x10*3/uL Normal 0.5-3.2 [facility] Comment on above: Performed By: #### 5 7021-8 #### [facility] [address] Lymphocytes/100 WBC (Bld) 7.1 % Low 13.0-39.0 [facility] Comment on above: Performed By: #### 5 7021-8 #### [facility] [address] MCH (RBC) [Entitic mass] 30.1 pg Normal 26.0-33.0 [facility] Comment on above: Performed By: #### 5 7021-8 #### [facility] [address] MCV (RBC) [Entitic vol] 90.2 fL Normal 81.0-98.0 [facility] Comment on above: Performed By: #### 5 7021-8 #### [facility] [address] MEAN CORPUSCULAR HGB CONC 33.4 g/dl Normal 31.0-35.0 [facility] Comment on above: Performed By: #### 5 7021-8 #### [facility] [address] MONOCYTE ABSOLUTE COUNT 0.36 x10*3/uL Normal 0.0-1.0 [facility] Comment on above: Performed By: #### 5 7021-8 #### [facility] [address] Monocytes/100 WBC (Bld) 3.1 % Low 4.0-13.0 [facility] Comment on above: Performed By: #### 5 7021-8 #### [facility] [address] NEUTROPHIL COUNT ABSOLUTE 10.16 x10*3/uL High 1.5-6.2 [facility] Comment on above: Performed By: #### 5 7021-8 #### [facility] [address] Neutrophils/100 WBC (Bld) 88.5 % High 47.0-76.0 [facility] Comment on above: Performed By: #### 5 7021-8 #### [facility] [address] NUCLEATED RBC ABSOLUTE COUNT 0.00 x10*3/uL Normal [facility] Comment on above: Performed By: #### 5 7021-8 #### [facility] [address] Nucleated RBC/100 WBC (Bld) [Ratio] 0.0 % Normal [facility] Comment on above: Performed By: #### 5 7021-8 #### [facility] [address] PLATELET COUNT 335 x10*3/uL Normal 150-400 [facility] Comment on above: Performed By: #### 5 7021-8 #### [facility] [address] Platelet mean volume (Bld) [Entitic vol] 9.2 fL Normal 9.0-12.1 [facility] Comment on above: Performed By: #### 5 7021-8 #### [facility] [address] RED BLOOD COUNT 4.48 x10*6/uL Normal 3.8-6.0 [facility] Comment on above: Performed By: #### 5 7021-8 #### [facility] [address] RED CELL DISTRIBUTION WIDTH 40.3 fL Normal 36.7-49.4 [facility] Comment on above: Performed By: #### 5 7021-8 #### [facility] [address] WHITE BLOOD COUNT 11.49 X10*3/uL Normal 3.8-11.5 [facility] Comment on above: Performed By: #### 5 7021-8 #### [facility] [address] COMPREHENSIVE METABOLIC PANE Johan 01-30-2021 Albumin [Mass/Vol] 3.6 g/dL Normal 3.2-5.0 [facility] Comment on above: Performed By: #### M PC, LIP #### [facility] [address] Albumin/Globulin [Mass ratio] 0.9 {ratio} Normal [facility] Comment on above: Performed By: #### M PC, LIP #### [facility] [address] ALP [Catalytic activity/Vol] 74 U/L Normal 50-136 [facility] Comment on above: Performed By: #### M PC, LIP #### [facility] [place] [id number] [facility] ALT [Catalytic activity/Vol] 35 U/L Normal 30-65 [facility] Comment on above: Performed By: #### M PC, LIP #### [facility] [address] Anion gap [Moles/Vol] 13 mmol/L Normal 10-20 [facility] Comment on above: Performed By: #### M PC, LIP #### [facility] [address] AST [Catalytic activity/Vol] 16 U/L Normal 15-37 [facility] Comment on above: Performed By: #### M PC, LIP #### [facility] [address] Bilirubin [Mass/Vol] 0.3 mg/dL Normal 0.0-1.0 [facility] Comment on above: Performed By: #### M PC, LIP #### [facility] [address] Calcium [Mass/Vol] 8.7 mg/dL Normal 8.7-10.5 [facility] Comment on above: Performed By: #### M PC, LIP #### [facility] [address] Chloride [Moles/Vol] 101 mmol/L Normal 99-111 [facility] Comment on above: Performed By: #### M PC, LIP #### [facility] [address] CO2 [Moles/Vol] 26 mmol/L Normal 21.0-32.0 [facility] Comment on above: Performed By: #### M PC, LIP #### [facility] [address] Creatinine [Mass/Vol] 1.1 mg/dL Normal 0.5-1.2 [facility] Comment on above: Performed By: #### M PC, LIP #### [place] [address] [place] GFR/1.73 sq M.predicted among non-blacks MDRD (S/P/Bld) [Vol rate/Area] 58 mL/min/{1.73_m2} Normal >59 [facility] Comment on above: Performed By: #### M PC, LIP #### [facility] [address] Globulin (S) [Mass/Vol] 3.8 g/dL Normal 1.3-4.7 [facility] Comment on above: Performed By: #### M PC, LIP #### [facility] [address] Glucose [Mass/Vol] 209 mg/dL High 70-100 [facility] Comment on above: Performed By: #### M PC, LIP #### [facility] [address] Potassium [Moles/Vol] 4.2 mmol/L Normal 3.5-5.0 [facility] Comment on above: Performed By: #### M PC, LIP #### [facility] [address] Protein [Mass/Vol] 7.4 g/dL Normal 6.0-8.5 [facility] Comment on above: Performed By: #### M PC, LIP #### [facility] [address] Sodium [Moles/Vol] 136 mmol/L Low 137-147 [facility] Comment on above: Performed By: #### M PC, LIP #### [facility] [address] Urea nitrogen [Mass/Vol] 18 mg/dL Normal 7-22 [facility] Comment on above: Performed By: #### M PC, LIP #### [facility] [address] Urea nitrogen/Creatinine [Mass ratio] 16.4 mg/mg Normal 6-25 [facility] Comment on above: Performed By: #### M PC, LIP #### [facility] [address] Abdomen / Pelvis With Con ton 01-30-2021 CT Abdomen / Pelvis With Cont [address] [address] SCAN Name: NICKI OVIEDO Dev Type: REG ER MR #: [id number] Room & Bed: Date of : 1975 Date of Service: 01/30/21 Age: 45 Ordering Doctor: Maegan Liang MD Sex: Female Family Doctor: Miscellaneous Physician Order #: [id number] Dictating Doctor: Sadiq Medina M.D. Admit Date: [...] SIGNED BY: 01/30/2021 21:38: Sadiq Medina DO 01/30/210 DICTATED BY: Sadiq Medina M.D. CC: CONFIDENTIALITY NOTICE: This report is for the sole use of the intended recipient and may contain confidential and privileged information. Any unauthorized review, use, disclosure or distribution is prohibited. If you are not the intended recipient, please contact [facility] at [phone] and destroy all copies of the original. Normal [facility] Choriogonadotropin (pregnanc y test) [Presence] in Urineon 01-30-2021 HCG ( test) Ql (U) Negative Normal Negative [facility] Comment on above: Performed By: #### 2 106-3 ####[facility]ATORY[address] LIPASEon 01-30-2021 Lipase [Catalytic activity/Vol] 108 U/L Low 114-286 [facility] Comment on above: Performed By: #### M PC, LIP ####CLINICAL [address] Microscopic observation LM N om (Urine sed)on 01-30-2021 Bacteria LM Ql (Urine sed) Trace Normal Trace [facility] Comment on above: Performed By: #### 1 2235-8, 75753-5 #### [facility] [address] Epithelial cells Ql (U) 0-5 Normal 0-5 [facility] Comment on above: Performed By: #### 1 2235-8, 84136-2 #### [facility] [address] RBC Ql (U) 3-10 Normal 0-3 [facility] Comment on above: Performed By: #### 1 5-8, 49997-4 #### [facility] [address] WBC Visual Ql (U) None Seen Normal 0-5 [facility] Comment on above: Performed By: #### 1 2235-8, 32172-8 #### [facility] [address] Physician Documentationon Physician Documentation [place] [address] Medical Records Department ED Physician Documentation Name: NICKI OVIEDO Pt Type: DEP ER MR #: [id number] Room AND Bed: Date of : 1975 [...] PO BEDTIME 09/12/20 [Confirmed 01/30/21] hydrocodone-acetamino phen [Ellinger] 1 tab PO Q6H PRN 01/30/21 [Confirmed [...] and c (more content not included)... Normal [facility] Urinalysis dipstick panel Au to test strip (U)on 01-30-2021 Appearance (U) CLEAR Normal Clear [facility] Comment on above: Performed By: #### 1 2235-01, 73050-8 #### [facility] [address] [address] [place] Bilirubin Ql (U) Negative Normal Negative [facility] Comment on above: Performed By: #### 1 2235-01, 54739-4 #### [facility] [address] [address] [place] Color (U) YELLOW Normal Yellow [facility] Comment on above: Performed By: #### 1 2235-01, 47828-0 #### [facility] [address] [address] [place] Glucose Ql (U) Negative Normal Negative [facility] Comment on above: Performed By: #### 1 2235-01, 65264-5 #### [facility] [address] Ketones Auto test strip Ql (U) Negative Normal Negative [facility] Comment on above: Performed By: #### 1 2235-01, 70147-4 #### [facility] [address] Leukocyte esterase Auto test strip Ql (U) Negative Normal Negative [facility] Comment on above: Performed By: #### 1 2235-01, 19112-7 #### [facility] [address] Nitrate Ql (U) Negative Normal Negative [facility] Comment on above: Performed By: #### 1 2235-01, 09286-2 #### [facility] [address] pH (U) 6.0 [pH] Normal 5.0-8.5 [facility] Comment on above: Performed By: #### 1 2235-01, 02142-9 #### [facility] [address] Protein Ql (U) Negative Normal Negative [facility] Comment on above: Performed By: #### 1 2235-01, 34477-0 #### [facility] [address] RBC Ql (U) MODERATE Abnormal Negative [facility] Comment on above: Performed By: #### 1 2235-01, 68360-7 #### [facility] [address] SPECIFIC GRAVITY,URINE 1.010 Normal 1.005-1.030 [facility] Comment on above: Performed By: #### 1 2235-01, 04649-7 #### [facility] [address] Urinalysis dipstick W Reflex Culture panel (U) Normal [facility] Comment on above: Result Comment: IF T HE DIPSTICK NITRITE IS POSITIVE AND/OR GREATER THAN 5 WBC'S ARE SEEN MICROSCOPICALLY, THEN A URINE CULTURE IS ORDERED AND REPORTED Performed By: #### 1 2235-01, 18583-4 #### [facility] [address] [address] [facility] Urobilinogen Ql (U) 0.2 Normal [facility] Comment on above: Performed By: #### 1 2235-8, 35270-2 #### [facility] [address] [address] [facility] Coding Summaryon 01-27-2021 Coding Summary HTMLBase 64 VxcuofkoVSq2jKy+PGhlY WQ+EM3LRBJzE43ujYAblS 5NC0gWPM5YAUQKPFUFZX1 NOR7keIR2SPviG4OfckSz KnvvzUAcWA69UOh7JAT2h HysJWrusW8qsCEnK9e0Uw NiOX99aP85JMsbVODzPzX 3LjZpbjsgbWFy H2qzWqKauOXvXkf+PHRhY mxlIHdpZHRoPScxMDAlJy JwfWllLK4nHu5cYOWhPXC vbGxhcHNlOiBj m3tuUKNoNHwdXW1hcRmmG 2HteGG9ZMXlm8x9Kz20zU I+IPJuPSC8tXkkMUgjt13 6YlEum4fsJUI7 xEWeHYzaHQF9Q97do4Q1J POiIUXaOGV0aSS8nI1kpA uydqukU1CspBEaFwO5TTV 5pNTfgK8dbFqe hcvmuG7cQco+U87UYI5BB MRUFI7VVgv7V0CnXgtesW I+LS24USWuGV49dPUdjYP lw3fxpHm8PlUg JIVuTRP3uFfwPAhnv7HjY BBjY84nxSVle5R4EYEvtV hsgSZmVdGoaBV9rI1uAFy gzsmoo0pzikot Mjldf6yxjg05fW38M20rW ZqgGUKvNRO5EMRiNTWssO kfhp0mmR5iXx7+ABkjw8t qs8vvbIc8UiMn XZHbyjPetTwfAHY6x8MfR n25B9GooGvrw5FkNfe7ct 84nZFyn7T4eEL2EXtaTAX kyZ7gAIspGzJ8 SPXeJbOzeB59kSIbVEsoS t9xpAgxoYieMG8cFDCnls otGWWfrB8rMYYsgZFbaTs vUJ3lBWNumjsj q701McOqYRY3QVKicLXkA 4PgkC3zQwXeWLSeDFMvD8 NwvNOnNStbT975VNjfZgA 1EHEzjzReB8Ml TWXlsSdjNlI3v0D3Bl7Ai 7QyksbnCJW9YOyeILG6Tk BdNoUfHxY4I3GpVsd7PFR xhQzgCP8cI4Yv UWUqwjmlpntvxPE9BCQmF BIchK82hZUkLHsoDd5nf1 R0v611OUHkYCStdG59Mb3 udDogMTBwdCBU zP5oruruz9kizpajGxQtJ PXxZWw6FDb4YJYsgChjMt JnABV9AgI5QDD6cRAxfI9 nhAribzpcpK3p Oyc+I53weV7wFSB3CIB3t ertMKZwotWdEZ01RB07J4 RyPjwvdGFibGU+PGRpdiB phZbxHT0oLsPa g9nyr5LkVNueP1KcTZKsU AedTel6CWVvSBO3aYK1iX 0gVGOeSDqwc2H5oKC0W5J ueyRmtx5oo6km FPGlIHttE80voDYja9S9O BEdvWT4TLCsrPusWtLqwV 93Oyc+RLOafWdtx9QwSyk nm8rru8jhbKf5 TkQcXTNojqLuqBumUZX6x 6EiJx75W83bSEzoPYBtIR SwIZNnJYQzqKwcrx8wfB9 wIi8+PGNvbCB3 gFI2rZ8wAYMpZgJ8FXpyE 462HeEdlAGkSxqjc3oji9 sgcEx6KzDqNKBoxmIqoQl xXUC6n3IbRs55 R50kNZsmVOKvGBVwMQQeR UYcjDxsoc8pbO7kCd1+PC 2zh9pglh45tX53wEB+PHR gBYG0lSizXZey ELPjsV3tWWcaBoU2FEZfG hOzwS82zHWrXBfnHy6ujF kdcChpRZ3qZSWafmdvx22 1IuNeq9usRBOi sWVvJFomWCL9N90qe8M9H USiXHLmIHA1hAL1vH7htF lnbjogbGVmdDsgdmVydGl pFTnhJYajC910 IHRvcDsnPlBhdGllbnQgT sYeLPr1Z0MjXsl0XPEzzR wzFA8bkYAqTOapUo0vfLw euAwyMC6lCPEm bapma274MbElx7xdSILbx TDqPDvdNUI8R22pw6Z2PV EoEIUsSXG8qEQ1yS0doUg nbjogbGVmdDsg toPelEliOZgfKQjjI537S HRvcDsnPkJpcnRoIERhdG L3UK91JK71uTDjw3F5bUH 7C7WdEXPheopk ywrreBU0XBYxQBQgeK41K u0fiZcwXd4kCAUfIUD2FG ZlvCHrX2VmjA6zGhOnPXY jTAGxW3ZcoCLm EOysI141XYzkOeT9OLIyi pLgD7MzUHXxlVyxFuR5q0 P2Rk0TY3S0IB20RM03lMG xl0Y1hVU1J9Fm UJJpfsyktmxhfFB4BCBzQ ESmlY74Eg9slVhxXx9yJN QxHUQ2CBJqvJZwB6AevK1 yOiAjMDAwMDAw C4WixDKxRAcdJ190LNavW cD7VFNdagNwS3RzMUVddH clVgP1o1A0Bc5TBMw2KP5 5SL78zVQgm1G8 gQE5V7LtTSJtzpdbfckmc IF3RJPpQJKdtL00Nc5utF kpUp3yWMYtNQH0WCUlmOT nW7WbyH1pUfPl TYSiQCNoO1ZgiNCuMGjlJ 520LKdbTsG4YTDyyfWpZ7 PdOCIakIrvXbX5n2K6Qo9 GFGVmQV34ZOC3 oZZ0BP90JP34I1BpApxqy GFibGU+PHRhYmxlIHdpZH RoPScxMDAlJyBzdHlsZT0 yHp8sKECaAWEe rMoqzIMfQeUod4jqZJQeT LjmCZ7viXxcH9TvpYP5XT Uml2e6Gh52S51sT1MrlXC +LYUxrDY9kII2 eQ4mMaVbHzS2WMuhV387L tGloDKpAaxop7dty8fcvA r6YjR6TOIqtwSpiWywNBZ 8b9RxTw16Y44i IHdpZHRoPSIxNSUiIHZhb Dwepg3reT6nCg3+PGNvbC K6iGF3xC7aKdGtToX6FFh cA285PnSftEOm Lotch7cxm4eeuAj8KrVvX ACkprGtzVadVMT3s6ZqKh 22S1ChxDmwh0XhXlt1et1 9oVVnw4R4yOK9 E9VnYUPxmgnpfKRxgHmrE P9qCJWxofkmIQBgzO1aRN NrD3j5DrCwOnO1MMpnO7X hueH7THQhhAIf PVtzAVL7T52kr4H6RQAaN LNdYCY1cNM9qR3xfHfptr ogbGVmdDsgdmVydGljYWw tHYbwE711LTXf cEwlVGPsnG7sNEEkuOFah QvvFU3oENYkjiaoVdsEIi DRLyweUI7SAVYBHXzRNkJ USDwvdGQ+PHRk QLJ6tOryLFktPABfsQ9yQ ZMtP4v8YkRqItW9DDijE0 HlRVGslddgEy77gB2kMlC yOzJ4PQpmA6Kq ykP7SSQucADnJEceEIX7X 35mx7V4PUJbARDnRBV6pH M8dS2kvUnfyjolnIJipUo gdmVydGljYWwt CPyxY555ZZTovJacBuCwS kWzRsF0Ixi0G7OkTvr3OG WacPreNW6epUMiAHvwKq1 ohUuwcBjmRN2p FIZdytmsTDVfgX5hTILqg RLywBgfJY9aDUZktfnej2 47YkCtGHD5SJGwvPBqZ9I amP1gYsVhYEXp BUNfV1NeqCCuCNonC519H UnpPxI0WCCodzXlJ8UpZF PrkFzoZxK0o0Y4Fo18BfI ZZWFyczwvdGQ+ MYYzYJT1rOeqWAgiTYWla I8rHDZoE3s2TwAtRwT3YI edO8AmUQAdkiggTv02xD1 nZwSeEuE0PUcu B1ImoxV5AZVhyMLkPOmsK GY7Y67rg3Z1PKMjNKJuVW K5fDE1uG2xwNdwfadigLO mdDsgdmVydGlj JMctWVqqO632HKFynHkmW kZFTUFMRTwvdGQ+PHRkIH M5bPxsJDzqYLSdwB5eHEB uZ4i3SxIuCxM9 UNhpT0GeUXYgujjlHo32n V1lIjWoKdU4HAunK2Ripf Q6CWHabKBwEAvlUAA4J21 bb7Q7XDCdRWQy SNY1nHD7oH3bjTvnkvmkl GVmdDsgdmVydGljYWwtYW bwH740VRBzeKymMn2BUR5 8IC90S0CbGkko dGFibGU+PHRhYmxlIHdpZ HRoPScxMDAlJyBzdHlsZT 6fVi4dFLPaVCPrqEhocBJ eWnMqm9wzORPf ONnoBW0yuRnqF9LiuXK0R XOji1o8Tu51G49sW1ZvqT A+JMSuyXJ7fYX3nW5pNhU aKcX2TUrhK660 LrTdmIIcAqnqz8ote0ndv Qk4IaIdASVccfKnsCknTM R4u4QtOw22Z88oGUggUEC oPSIyMCUiIHZh dKzisf8rdA5xSv7+PGNvb ZN4zWQ8jY2rCuBdJzH5HZ xrQ698AeDcxSQrMjryY08 sV2EbjYH+PHRy Ggh3YAQqgGqlTX9hxUOwD UsfHj7pRSL0ZdUtQdNdVO mgI4MeRHMrtezmvykffMU 2ZAYxHSRzyZ23 Qk8piCsxUh9bMAKoKHE3C DQrqIBvB8XbzI7dUnUuOZ IhZPPwU0DtjZBsXZfoI22 8VLclOzA3ZUEa tjCrF5OfVORqvDngLoB1t 0E0Xv4GxFzqsWPlEK3zJw VuVEa1C7MqEbl3JWMdwBr dXM6wzFAsVJuo Ss5nbJrkaWoeGP6oDLKzb ljvb121MoLdw8wjAJMkyP TaCSreWUG5T24yj9M8RNR iGIEmJUR6lQK8 zY1wrCyevonbpSKqrCcha kBskTtpRGjjFMayN149NY FneDpaEjKLCwg4X1VuAnm 8BYVtgSbtXR8p kQRuJWxjZs3szRvjmPxwP E3eZZQmgqluw337BkIwy7 zmLQIutCPgPCpoVRP1Y47 tr6R2ETKgIAGo SEQ1pED0yP3cuSkpvghxf GVmdDsgdmVydGljYWwtYW qiK323WROktNcgNk4APal 8X9TgRum8UGVv sRtaZA2vaLKqZAtsUc3ik HtgkSrbMM7oRASsfswcb2 39CdEji5vuOENjnXMsYNq xWTK7K20ix1E3 POEgPDJhHJN2wBW3hN4eq GlnbjogbGVmdDsgdmVydG roCCilRKzzH569MYRdyAc nPlBheWVyOjwv dGQ+DE83zr97F8UtPoklJ xy9RJXhBND1bBF0gI5fUX JwJVwdh9T5bEY7L9PcypS xzd9bv3lrHFAh ZTo (more content not included)... [facility] Coding Summary HTMLBase 64 VfaiszjjMRn1gEi+PGhlY WQ+CP9MIIDvL27uwHDugG 9TS2uMZD9YHAWHAJUARX5 WOC0jgCW7MAnvY4CoxuEl EdsuaQVxNF50RBi7JDA8s AcfUCxbqN0gsHGnN0m2Cl AbCQ40pG20VTraCVXjOvH 3LjZpbjsgbWFy Z9ewTtVopTLiBhj+PHRhY mxlIHdpZHRoPScxMDAlJy QwvOveMC2qNj1cQUSaLQD vbGxhcHNlOiBj k7flWWNhHTqvPN7sxFuiO 3QrxQI4RBJzn1n8Rs69fG I+IIQvOLB1fHnrILkwr05 9GoQcn4wqFFF7 iPBjZMhrQRY0O88en9X4S OGgHOOdJEV2uTK3lH3zyT ktiqusB1UavBRaPiF7YGM 2mVXrdY2odQws fswcxJ8rYll+Q68ISP0VV GRNIG2ZFqx1X0SiHsfhtT I+JW60QTErVE54tBDssWR cl5qopFa6WiGc FRBxFHX6xGrdJVmzk0HyH HFzS94fyWPwo5K2BEWscJ ngvGOvYiRgdGU0lM7iZWt vmuxff2jnwffo Cjqxx6nbmw93mI15Q07bM UnvDFNtGCL5MXRcBINflI eymd4ppU7bAs4+RNjho4v is3pffOb1AkGe PQGpdpQruPuiBBD2q3QfP l40Y3EsoMznv4JqJrc9rx 12kNIyg0S8tFM2YSzsURZ gmN3jQAvxItC2 WFPsDeKpxD38tFDzAFqoH p8ekQrrdAjvDQ0sCJQsaa fpEMHpvZ6eOXXhbYEyyHn aPP0jULDhzhqg p035PoFlUGR9QYVolRYtI 5HjeT7cZjNxNWTwDYPoM1 BcxXSxPJyxK245ECfiYtA 5BUTpbhJfH5Id MXMkjBscVzN5s9Y4Hw8Pz 6DzsmyuGET6VJpzOWR6El HxDoAlArG9O2LcCqn8NCI ocLoyNC8zS1Uw NYPubogakqojkFL6PMWaX HFrrU97aLExTNeaOj3rm9 J2r300LFIpVNKbjC76Pl5 udDogMTBwdCBU hP4shqryv8armkpcDoXxN AZkNJx1LSd9HHKwlFgnIr NdLYQ8GlV4VLP7fRVsvJ4 ijPponthmhV8i Oyc+L74xnY9iUWB1NIS6b hwbOZFbuiPxDE29TX19W1 RyPjwvdGFibGU+PGRpdiB vrUuiHK7bWsLl h0uhu2DzMSwxS4LnEGOaE ChzNde1BUQoBHF5oFS3uV 0yJAHlBDkgx2B9nKC6Z0L eagRqcq6kg7cm DOZuBXciG20kzJFar7R6D UZorWW9WAWygKacZhEthF 93Oyc+GPLqbXlax4PyDww tu2ies3ldbWe9 ShJsDDCwdqByoOfhBDI2t 5LlEj84V00aYHshOFLpAN LuEBTjAYBjtDqxum6dmL6 wIi8+PGNvbCB3 fAT6nS4qTRNcMbA4YXyxH 955QfRryNSfVhuzo2yjs0 yuoOj6EwRbFXAqnyAstKy uEQG3l5WyQe46 N79yLHxmPJEjDBHvAKJkW LWouTkbzl0unH1dKs0+PC 7qd1xawa70tN34pSX+PHR aUXX5qGaeNCmc BTKdoH5vEWhoVnD1CCDyZ nRsvZ39bVEbMOcyGe9uzX ukgRryEX1vPLCvdvsop13 7ErDzw1ceCXJh oZYbZWqwUGM4Q71qh1O2O UFwMNVbMIE7kGJ4fO9ahX lnbjogbGVmdDsgdmVydGl tDWmhBCpbD495 IHRvcDsnPlBhdGllbnQgT vVlMNd4Q6McBkl8MFMoyW saVK8riJBxVQbrQd3exTk msAyxOJ6zRGPx ldxwi743GnTuc4qdEGRwt CKcDOjrHEO9B13xp5I3TE GxAMNlOVP9xNP4vW1hsMw nbjogbGVmdDsg erHudMobXTymWDxsU847I HRvcDsnPkJpcnRoIERhdG P6JI07SD06tYVga7D5dSY 4T1GuXSGgjbji xnehsBB3UIUnQXJbbZ97R y5esSzvNx5xMSPuESN3NJ AyyIGrW8YnpM1oOvVmRZK wZWTzH3YiwNQb QYmcU077FOizJaQ3FOXaq mMdM4YgIDBytCwmLdE2e9 C2Ru4PR1J1KM39BE37yDG sh0D7bPB1C1Tw CCIzvaorcjiahES7WSDfP FUnxG98Gr1rgNzsHu1iZM OhHKF9EWZebXIbU2WpzH3 yOiAjMDAwMDAw Q7FstEAsJJoiM068FSdbH wJ1WMInmsPiC4LhVCDxdI rlUkW1c0W8Pl2HQJg1NP2 0QK02eHGea0G8 tFS1Q5RhDNZabhqbhaiuf WT9UZKyMMFzfS91Er8clE grZv5pSMUfCIF3GOCgmCO vD4UhvB8hLtAe KFBjYPDmX1RekUVgVHkmH 329SXkcDgL2VCMosdGqO2 WfVRDfnNsoRrS8b0J6Ai8 FEHIoAD36LFF2 lGK1CM36XX57U5EjVjhfz GFibGU+PHRhYmxlIHdpZH RoPScxMDAlJyBzdHlsZT0 dRe4vESMyBFDs iAyzhSJdXpUwn9rpMZEpA HnzYD6ynIbxY4OmeHB7IR Sor6i6Hm98A62eT5HcoBN +HTPzmQQ8lKT2 xF1oVsDtXmA5KXayQ417P kOizDDkDudew0dhd9rrzQ q2SjY7BITxsvFqmQhwTGT 4s5UlIm35A06i IHdpZHRoPSIxNSUiIHZhb Jazie8ztA5jXz6+PGNvbC E0dKQ4qS1mTcNaZsF0IXc bJ631LcSdwOTq Osbsa1xvq8lizTh7VpWqF SHrbnNzvIblTBV8d6HrBl 11Z6WegWbrj1CfAsi2vs8 2xJMaw3W6vQI5 A0YyBLUlmywizLKtbDnoI A1gNURvfrgtUBQpnO3pJX BxT4u1EjAsCyY0KRokE9I sqsN1PRGkiNJj RIxhUTJ2G58pm6D6LNCbP YKtPNP5zHV1cR0xsKufzy ogbGVmdDsgdmVydGljYWw jARfiO082RPOc jJurCWThoB2wOXVnaGQwg LcrBJ5xGPJfbilkQgmUVk IHCsqrGD9RTWUFKUkYBpH USDwvdGQ+PHRk OOI8bChhYImaQHPffG9eH INiR1d3HoCfMgJ8FUgfA9 JvYQXzzrooMr19kR0oYlK oXwY1YEdkH7Lv vmI6LROboOEbYXxuMMR9V 05ny1W8FCBzZVFmNXP8eS Q7sE3tlFkupmztnKEewLz gdmVydGljYWwt PSqwP150NZRcxRdqDuJbO kSaYiQ7Ezb2C4WpRdu6QB PgkBcxSH0gvZYfZVuyZo6 mxWwynZuqCD4i SYOafvluIQDtoS5cFZVyn NRttLpvFX9nNWAuqqkzb3 04JrXmZQH5XFVgxRErE4O ozK8xNyHxLNRf XIHyA1FibFEnRNqvW424M GyxOgF7PGOmrgIuS9RpBR HocVelZzN8m8O6Au30TyF ZZWFyczwvdGQ+ XPSzAIQ2hGmfGKffAIGkm B6pUTGaA7u4HtTzLoW9AQ hlH6XhJOMghigyEl58rP1 tEtAqEyS3KVez K8YgyjS1EVGciHChDNarO AC5T70yi6G9WERpJDKeEK S6pGE4dY2stMrqsodkuUT mdDsgdmVydGlj RPdaUZpyC444QHAoaJjfN kZFTUFMRTwvdGQ+PHRkIH E3kEnmWDptNOGvkJ3qYJE cM0z8SrMmLtR4 TVjuI1ZgUXPamjekYl28y W4gExAsVgE6QUzwV1Uqiq V6DETagUEnSDdzNAQ4Q11 mt0L0JXAeEVGd SYU3gCW8rU7spUelrccfj GVmdDsgdmVydGljYWwtYW dbI726WYExxRkaAbZqRNS yZP7ajIddhUB+ DU69xy00M3LyRhhyQrk1P LVtHSM3iKP8tE7sETPuVN vks1V9kDK3V7AmecRjso3 qn4pwFOUcXQof I46hyAEss6C3LMFxzDK9W HNcoJfyYoTcwI11Ckb+PG SfjKuvr0DvJtrgk3xhk0k xnLh3OcPgEAQh cmXepVamQKZ0m8JvHl81H 29sIHdpZHRoPSIzMCUiIH KwsYjdsf2bkS6mYg4+PGN jsGZ1eRQ1mV6m YkKuHaC0EDxuV858VqHaa XJjUcsck8fmj9cjaKq6Sm WlEPTynqEkaOtjCYK9l6H rTq49N2OntDph h1TjZqo1kc44cVRzm5N2u SV7Z7RbGJWxlldleZQfwX aiWA8aXDZclilkWASbwK3 zADOjC5n8PgSu JaV2YBunS2MlsbE5LHPzg YPgBKLhqZSUnS9lhepss2 ccvdpcTyIlEIEbVNz0TTq 0LWFsaWduOiBs VSL9LjF1IHO9yEFdbS5ws RznpkcqxV5uZhm+UGh5c2 eruSEmBH8xzSG7CF25JW5 6iBZxb1X1eFD0 J0CzWENewosytbuvlPP6N FNqGODqiX66Go9qtThlJw 4jTTIxTQU6VBYhkGAdI9B zfO4wZtGrIKRt WBZiQ2UcqYQxAOnlK739H MlsYnZ5XNOeieBbR4OmWG VxqOriQxV1k5Q4Kv3GWH1 8DM60OY19hHVh k9T5gXY8D3UkHUPjnztkn egxrHL4NZDnBJYatJ63Jw 5cwCsnXq4jLFBnKDP9FYV thNAmY7XgpC8a MfJpPIChSIKgB6DxeXYsI YfrH210PSryBuF5ZKSvqb WqH4QwVVRcdAhoPsJ9u4F 8Bl8GQz39NR11 CV32yWWfr0R2tCL9U0YxR GIaweasnguqaCT6EKIgWC GaxJ08Tu0ndZxdTb1nYMH cBMB5EVYwxLUo I9CpqN2wDrHiRYDeABHzI 0OqoLMwGKtcJ619INtcHh F8LYZceyXeB0YbRGDggBo pNtX4s8Z5Wm3W NOpldfe8C4VlZbhwoKT+P N41ALVbWP01pFXutBKtr5 khwLe5XuGsIAVqGZY5tAs xWXpau3NrNFYg Y29 (more content not included)... Normal [facility] .Auto Diff 1on 01-16-2021 Auto Stephenson % 10 % Normal -12 [facility] Comment on above: Performed By: #### 2 [id number] #### [facility] (DEFAULT) [address] [place] [address] 74924 Baso Abs# 0.0 x10 Normal 0.0-0.2 [facility] Comment on above: Performed By: #### 2 [id number] #### [facility] (DEFAULT) [address] [place] [address] 31572 Basophils/100 WBC (Bld) 0.3 % Normal 0.2-2.0 [facility] [place] Comment on above: Performed By: #### 2 [id number] #### [facility] (DEFAULT) [address] [place] [address] 90116 Eos Abs# 0.1 x10 Normal 0.0-0.4 [facility] Comment on above: Performed By: #### 2 [id number] #### [facility] (DEFAULT) [address] [place] [address] 51558 Eosinophils/100 WBC (Bld) 1.3 % Normal 0.9-4.0 [facility] Comment on above: Performed By: #### 2 [id number] #### [facility] (DEFAULT) [address] [place] [address] 74629 Lymph Abs# 2.4 x10 Normal 1.3-2.9 [facility] Comment on above: Performed By: #### 2 [id number] #### [facility] (DEFAULT) [address] [place] [address] 48503 Lymphocytes/100 WBC (Bld) 32 % Normal 14-48 [facility] Comment on above: Performed By: #### 2 [id number] #### [facility] (DEFAULT) [address] [place] [address] 63070 Stephenson Abs# 0.8 x10 Normal 0.0-0.8 [facility] Comment on above: Performed By: #### 2 [id number] #### [facility] (DEFAULT) [address] [place] [address] 72303 Neut Abs# 4.3 x10 Normal 1.5-9.2 [facility] Comment on above: Performed By: #### 2 [id number] #### [facility] (DEFAULT) [address] [place] [address] 02734 Neutrophils/100 WBC (Bld) 56 % Normal 44-88 [facility] Comment on above: Performed By: #### 2 [id number] #### [facility] (DEFAULT) [address] [place] [address] 86281 CBC w/ Auto Diffon Erythrocyte distribution width (RBC) [Ratio] 12.7 % Normal 11.5-15.0 [facility] Comment on above: Performed By: #### 2 [id number] #### [facility] (DEFAULT) [address] [place] [address] 58816 Hematocrit (Bld) [Volume fraction] 41.1 % High 33.7-40.4 [facility] Comment on above: Performed By: #### 2 [id number] #### [facility] (DEFAULT) [address] [place] [address] 04730 Hemoglobin (Bld) [Mass/Vol] 13.6 g/dL Normal 11.3-15.9 [facility] Comment on above: Performed By: #### 2 [id number] #### [facility] (DEFAULT) [address] [place] [address] 13707 Instr WBC 7.7 x10 Invalid Interpretation Code [facility] Comment on above: Performed By: #### 2 [id number] #### [facility] (DEFAULT) [address] [place] [address] 29184 Man Diff? Auto Normal [facility] Comment on above: Performed By: #### 2 [id number] #### [facility] (DEFAULT) [address] [place] [address] 56681 MCH (RBC) [Entitic mass] 30 pg Normal 24-34 [facility] Comment on above: Performed By: #### 2 [id number] #### [facility] (DEFAULT) [address] [place] [address] 01333 MCHC (RBC) [Mass/Vol] 33 g/dL Normal 26-37 [facility] Comment on above: Performed By: #### 2 [id number] #### [facility] (DEFAULT) [address] [place] [address] 90918 MCV (RBC) [Entitic vol] 91 fL Normal 81-100 [facility] [place] Comment on above: Performed By: #### 2 [id number] #### [facility] (DEFAULT) [address] [place] [address] 38557 Platelet 288 x10 Normal 138-427 [facility] Comment on above: Performed By: #### 2 [id number] #### [facility] (DEFAULT) [address] [place] [address] 08482 Platelet mean volume (Bld) [Entitic vol] 9.4 fL Normal 6.3-10.2 [facility] Comment on above: Performed By: #### 2 [id number] #### [facility] (DEFAULT) [address] [place] [address] 46585 RBC 4.53 x10 Normal 3.70-5.30 [facility] Comment on above: Performed By: #### 2 [id number] #### [facility] (DEFAULT) [address] [place] [address] 98658 WBC 7.7 x10 Normal 3.5-10.5 [facility] Comment on above: Performed By: #### 2 [id number] #### [facility] (DEFAULT) [address] [place] [address] 32391 CMP Standardon 01-16-2021 eGFR Non AA >60 Invalid Interpretation Code [facility] Comment on above: Performed By: #### 2 [id number], [id number], [id number], [id number], [id number], [id number] ####[facility] (DEFAULT)[address] [place] [address] 28269 eGFR AA >60 Invalid Interpretation Code [facility] Comment on above: Result Comment: [employer] chris Kidney disease could be indicated at eGFRs of less than 60 ml/min/1.73m2. Kidney Failure is indicated at less than 15 ml/min/1.73m2 Performed By: #### 2 [id number], [id number], [id number], [id number], [id number], [id number] ####[facility] (DEFAULT)[address] [place] [address] 31150 Albumin [Mass/Vol] 3.9 g/dL Normal 3.5-5.0 [facility] Comment on above: Performed By: #### 2 [id number], [id number], [id number], [id number], [id number], [id number] ####[facility] (DEFAULT)[address] [place] [address] 00084 Albumin/Globulin [Mass ratio] 1.3 {ratio} Low 1.4-2.6 [facility] Comment on above: Performed By: #### 2 [id number], [id number], [id number], 6625213, [id number], [id number] ####[facility] (DEFAULT)[address] [place] [address] 71748 Alk Phos 55 IU/L Normal 32-91 [facility] Comment on above: Performed By: #### 2 [id number], [id number], [id number], 3284319, [id number], [id number] ####[facility] (DEFAULT)[address] [place] [address] 78127 ALT [Catalytic activity/Vol] 40.0 U/L Normal 14.0-54.0 [facility] Comment on above: Performed By: #### 2 [id number], [id number], [id number], 1461568, [id number], [id number] ####[facility] (DEFAULT)[address] [place] [address] 41105 Anion gap [Moles/Vol] 18.0 mmol/L Normal 5.0-19.0 [facility] Comment on above: Performed By: #### 2 [id number], [id number], [id number], 1824554, [id number], [id number] ####[facility] (DEFAULT)[address] [place] [address] 92835 AST [Catalytic activity/Vol] 21 U/L Normal 15-41 [facility] Comment on above: Performed By: #### 2 [id number], [id number], [id number], [id number], [id number], ####[facility] (DEFAULT)[address] [place] [address] 50183 Bili Total 0.7 mg/dL Normal 0.3-1.2 [facility] Comment on above: Performed By: #### 2 [id number], [id number], [id number], 0927335, [id number], [id number] ####[facility] (DEFAULT)[address] [place] [address] 92674 Calcium [Mass/Vol] 8.7 mg/dL Low 8.9-10.3 [facility] Comment on above: Performed By: #### 2 [id number], [id number], [id number], 0087107, 0909613518, [id number] ####[facility] (DEFAULT)[address] [place] [address] 71654 Chloride [Moles/Vol] 99 mmol/L Low 101-111 [facility] Comment on above: Performed By: #### 2 [id number], [id number], 3222356370, 9663017, [id number], [id number] ####[facility] (DEFAULT)[address] [place] [address] CO2 [Moles/Vol] 22 mmol/L Normal 21-32 [facility] Comment on above: Performed By: #### 2 [id number], [id number], 0856037111, 4488033, 3724813485, [id number] ####[facility] (DEFAULT)[address] [place] [address] 22271 Creatinine [Mass/Vol] 0.53 mg/dL Low 0.60-1.30 [facility] Comment on above: Performed By: #### 2 [id number], [id number], [id number], 9414768, 8108375099, [id number] ####[facility] (DEFAULT)[address] [place] [address] 83388 Globulin (S) [Mass/Vol] 2.9 g/dL Normal 1.5-4.3 [facility] Comment on above: Performed By: #### 2 [id number], [id number], [id number], 9172282, [id number], [id number] ####[facility] (DEFAULT)[address] [place] [address] 97445 Glucose [Mass/Vol] 123.0 mg/dL High 74.0-118.0 [facility] Comment on above: Performed By: #### 2 [id number], [id number], [id number], [id number], [id number], [id number] ####[facility] (DEFAULT)[address] [place] [address] 20272 Osmolality 270 mOsm/L Invalid Interpretation Code [facility] Comment on above: Performed By: #### 2 [id number], [id number], [id number], 5411333, [id number], [id number] ####[facility] (DEFAULT)[address] [place] [address] 36717 Potassium [Moles/Vol] 3.5 mmol/L Low 3.6-5.1 [facility] Comment on above: Performed By: #### 2 [id number], [id number], 7761712830, 3564515, 7703122995, [id number] ####[facility] (DEFAULT)[address] [place] [address] 53634 Protein [Mass/Vol] 6.8 g/dL Normal 6.5-8.1 [facility] Comment on above: Performed By: #### 2 [id number], [id number], [id number], 7997887, 5069099789, [id number] ####[facility] (DEFAULT)[address] [place] [address] 80105 Sodium [Moles/Vol] 135.0 mmol/L Low 136.0-144.0 [facility] Comment on above: Performed By: #### 2 [id number], [id number], 2069135422, 5759385, 6725866186, [id number] ####[facility] (DEFAULT)[address] [place] [address] 15275 Urea nitrogen [Mass/Vol] 10 mg/dL Normal 8-26 [facility] Comment on above: Performed By: #### 2 [id number], [id number], 7855006755, 6834687, 9530246564, [id number] ####[facility] (DEFAULT)[address] [place] [address] 95709 Urea nitrogen/Creatinine [Mass ratio] 19.0 mg/mg High 4.6-16.2 [facility] Comment on above: Performed By: #### 2 [id number], [id number], 0174626600, 0213064, 7115731593, [id number] ####[facility] (DEFAULT)[address] [place] [address] 14562 ED Clinical Summaryon 2020 ED Clinical Summary [facility] - Emergency Department [address] [place] [address] 39697 ED Clinical Summary PERSON INFORMATION Name: NICKI OVIEDO Age: 45 Years Sex: FEMALE : 1975 MRN: Acct#: Visit Reason: Abdominal pain; Vomiting; Abdominal pain; ABD PAIN, VOMITING Arrival: 01/15/2021 23:33:45 Discharge: 01/16/2021 03:40:00 LOS: 000 04:07 Check In: 01/15/2021 23:33:45 Checkout:01/16/2021 03:40:00 Address: [address] [place] [address] [facility] [address] PCP: Duke Velazquez PROVIDER INFORMATION Provider Role Assigned Unassigned Luna Rubin TUBE CARRIER Nurse 01/15/2021 23:55:09 Jorge A Paulino DO [...] Instructions: Abdominal Pain, Adult Follow-Up: With: Address: Erum: Duke Velazquez [address] [phone] Business (1) Within 3 to 5 days Comments: home Percocet refill --just enough to allow you to return home/[place] Zofran for nausea See your physician at home You are welcomed to return anytime. T H OMLEY< ER PHYSICAN< H B Carol DIAGNOSIS: Abdominal pain; Chronic abdominal pain Patient Understands: Yes - Patient/family/caregi debo verbalizes understanding of instructions given Comment: [facility] ED Note - Physicianon 2020 ED [...] taking her medications. She is visiting from [place], she will be going back home in [...] or recorded. , Crohn's, no sx, from [place], out of her chronic Percocet. Surgical history: [...] Per Radiologi (more content not included)... Normal [facility] ED Patient Summaryon 021 ED Patient Summary [facility] - Emergency Department [address] [place] [address] PATIENT DISCHARGE INSTRUCTIONS Patient Information Name: NICKI OVIEDO Age: 45 Years Date of : 1975 Reason For Visit: Abdominal pain; Vomiting; Abdominal pain; ABD PAIN, VOMITING Arrival Time: 01/15/2021 23:33:45 Primary Care Physician: Duke Velazquez Attending Physician: Jorge A Paulino DO Comment: Visit Diagnosis: Diagnoses This Visit Abdominal pain (R10.9) Abdominal pain ([id number]) Abdominal pain ([id number]) Chronic abdominal pain (R10.9) Vomiting ([id number]) Prescription Information: If you have been given a prescription for narcotics, seek immediate medical attention if you have any difficulty breathing or any sudden status changes such as confusion and sleepiness. If you or anyone you know is experiencing suicidal thoughts, mental health, alcohol and/or drug addiction problems; contact the [facility] Recovery [facility] 08/01 Crisis Hotline -Text 7SKXD pz 529268. If you received any narcotics, sedation, or [...] any legal documents With: Address: When: [place] [address] Business (1) Within 3 to 5 days Comments: home Percocet refill --just enough to allow you to return home/Chanel Hobbs for nausea See your physician at home You are welcomed to return anytime. Iris PAULINO< BIENVENIDO VARGAS< H Rodrigo [facility] Medication Information: The exam and treatment you received today in the [facility] Emergency Department were for an urgent problem and are not intended as complete care. It is important for you to follow up with a doctor, nurse practitioner, or physician?s commercial escrow assistant for ongoing care. If your symptoms [...] so we can reach you if necessary. [facility] Emergency Department has provided you with a complete list of medications post discharge. 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 Normal [facility] Extra [facility] 01-16-2021 Tube Collected Yes Invalid Interpretation Code [facility] Comment on above: Performed By: #### 2 [id number], [id number], [id number], [id number], [id number], [id number] ####[facility] (DEFAULT)[address] [place] [address] [facility] Collected Yes Invalid Interpretation Code [facility] Comment on above: Performed By: #### 2 [id number], [id number], [id number], [id number], [id number], [id number] ####[facility] (DEFAULT)[address] [place] [address] Lactic Acidon 01-16-2021 Lactic Acid 12.9 mg/dL Normal 4.5-19.8 [facility] Comment on above: Result Comment: Was drawn as extra fallon tube and run immediately offline. DLW Performed By: #### 2 [id number] #### [facility] (DEFAULT) [address] [place] [address] Lipaseon 01-16-2021 Lipase Level 32.0 IU/L Normal 22.0-51.0 [facility] Comment on above: Performed By: #### 2 [id number], [id number], [id number], 1605524, [id number], [id number] ####[facility] (DEFAULT)[address] [place] [address] Test Urine 1on U Preg Negative [facility] Comment on above: Performed By: #### 3 [id number] ####[facility] (DEFAULT)[address] [place] [address] U Preg Internal Control Pass Normal [facility] Comment on above: Performed By: #### 3 [id number] ####[facility] (DEFAULT)[address] [place] [address] 47417 UA [id number] 01-16-2021 UA Amorph. 1+ Normal [facility] Comment on above: Order Comment: Urina lysis Microscopic order added on by [employer] Expert Rules system. Performed By: #### 1 [id number], [id number] ####[facility] (DEFAULT)[address] [place] [address] 45526 UA Bacteria Rare [facility] Comment on above: Order Comment: Urina lysis Microscopic order added on by [employer] Rules system. Performed By: #### 1 [id number], [id number] ####[facility] (DEFAULT)[address] [place] [address] UA CA Ox Crystal Rare [facility] Comment on above: Order Comment: Urina lysis Microscopic order added on by [employer] Rules system. Performed By: #### 1 [id number], [id number] ####[facility] (DEFAULT)[address] [place] [address] UA Mucous Trace [facility] Comment on above: Order Comment: Urina lysis Microscopic order added on by Discern Expert Rules system. Performed By: #### 1 [id number], [id number] ####[facility] (DEFAULT)[address] [place] [address] UA RBC 3-5 [facility] Comment on above: Order Comment: Urina lysis Microscopic order added on by Dis[employer] Expert Rules system. Performed By: #### 1 [id number], [id number] ####[facility] (DEFAULT)[address] [place] [address] UA Squam Epi Moderate [facility] Comment on above: Order Comment: Urina lysis Microscopic order added on by Dis[employer] Expert Rules system. Performed By: #### 1 [id number], [id number] ####[facility] (DEFAULT)[address] [place] [address] UA WBC 0-2 [facility] Comment on above: Order Comment: Urina lysis Microscopic order added on by [employer] Expert Rules system. Performed By: #### 1 [id number], [id number] ####[facility] (DEFAULT)[address] [place] [address] UA w Culture if Ind Standard on 01-16-2021 Breakpoint UA [facility] Comment on above: Performed By: #### 1 [id number], [id number] ####[facility] (DEFAULT)[address] [place] [address] Color (U) Yellow [facility] Comment on above: Performed By: #### 1 [id number], [id number] ####[facility] (DEFAULT)[address] [place] [address] Culture? Not Indicated Invalid Interpretation Code [facility] Comment on above: Result Comment: Resu lt created by rule GL_MAGR_ADD_UA_CULT Result created by rule GL_MAGR_ADD_UA_CULT Result created by rule GL_MAGR_ADD_UA_CULT1 Performed By: #### 1 [id number], [id number] ####[facility] (DEFAULT)[address] [place] [address] Glucose (U) [Mass/Vol] Negative Normal [facility] Comment on above: Performed By: #### 1 [id number], [id number] ####[facility] (DEFAULT)[address] [place] [address] Ketones Ql (U) Negative [facility] Comment on above: Performed By: #### 1 [id number], [id number] ####[facility] (DEFAULT)[address] [place] [address] 38890 Micro? Indicated Invalid Interpretation Code [facility] Comment on above: Result Comment: Resu lt created by rule GL_MAGR_ADD_UA_MICRO Performed By: #### 1 [id number], [id number] ####[facility] (DEFAULT)[address] [place] [address] UA Bilirubin Negative Normal [facility] Comment on above: Performed By: #### 1 [id number], [id number] ####[facility] (DEFAULT)[address] [place] [address] UA Blood TRACE Abnormal NEGATIVE [facility] Comment on above: Performed By: #### 1 [id number], [id number] ####[facility] (DEFAULT)[address] [place] [address] UA Clarity SL CLOUDY Abnormal CLEAR [facility] Comment on above: Performed By: #### 1 [id number], [id number] ####[facility] (DEFAULT)[address] [place] [address]97 UA Leuk Est Negative Normal [facility] Comment on above: Performed By: #### 1 [id number], [id number] ####[facility] (DEFAULT)[address] [place] [address] UA Nitrite Negative Normal NEGATIVE [facility] Comment on above: Performed By: #### 1 [id number], [id number] ####[facility] (DEFAULT)[address] [place] [address] UA pH 5.5 Normal 5-8 [facility] Comment on above: Performed By: #### 1 [id number], [id number] ####[facility] (DEFAULT)[address] [place] [address]34 UA Protein Negative Normal NEGATIVE [facility] Comment on above: Performed By: #### 1 [id number], [id number] ####[facility] (DEFAULT)[address] [place] [address] 87815 UA Spec Grav 1.015 Normal 1.001-1.035 [facility] Comment on above: Performed By: #### 1 [id number], [id number] ####[facility] (DEFAULT)[address] [place] [address] 14959 UA Urobilinogen 0.2 mg/dL Normal 0.2-1.0 [facility] Comment on above: Performed By: #### 1 [id number], [id number] ####[facility] (DEFAULT)[address] [place] [address] 33456 Urine Source Clean Catch Normal [facility] Comment on above: Performed By: #### 1 [id number], [id number] ####[facility] (DEFAULT)[address] [place] [address] 13988 XR Abdomen 2 Viewson 021 XR Abdomen [...] Signature): Joshua Esquivel 01/16/21 4:59 am Technologist: VICKIE [facility] COMPLETE BLOOD COUNT W/DIFFo n 11-04-2020 BASOPHIL # 0.0 10'3/uL Low 0.1-0.2 [facility] Comment on above: Performed By: #### C BCD #### [facility] CLIA # [id number] [address] [place] [address] Basophils/100 WBC (Bld) 0.4 % Normal 0.0-1.7 [facility] Comment on above: Performed By: #### C BCD #### [facility] CLIA # [id number] [address] [facility] [place] [address] EOSINOPHIL # 0.1 10'3/uL Normal 0.0-0.4 [facility] Comment on above: Performed By: #### C BCD #### [facility] CLIA # [id number] [address] [place] [address] Eosinophils/100 WBC (Bld) 1.7 % Normal 0.0-6.4 [facility] Comment on above: Performed By: #### C BCD #### [facility] CLIA # [id number] [address] [place] [address] Erythrocyte distribution width (RBC) [Ratio] 12.3 % Normal 12.2-15.8 [facility] Comment on above: Performed By: #### C BCD #### [facility] CLIA # [id number] [address] [place] [address] Hematocrit (Bld) [Volume fraction] 37.5 % Normal 34.6-44.1 [facility] Comment on above: Performed By: #### C BCD #### [facility] CLIA # [id number] [address] [place] [address] Hemoglobin (Bld) [Mass/Vol] 12.7 g/dL Normal 11.7-14.9 [facility] Comment on above: Performed By: #### C BCD #### [facility] CLIA # [id number] [address] [place] [address] LYMPHOCYTE # 2.2 10'3/uL Normal 0.5-3.5 [facility] Comment on above: Performed By: #### C BCD #### [facility] CLIA # [id number] [address] [place] [address] Lymphocytes/100 WBC (Bld) 32.5 % Normal 17.4-45.9 [facility] Comment on above: Performed By: #### C BCD #### [facility] CLIA # [id number] [address] [place] [address] MCH (RBC) [Entitic mass] 30.8 pg Normal 27.8-33.2 [facility] Comment on above: Performed By: #### C BCD #### [facility] CLIA # [id number] [address] [place] [address] MCV (RBC) [Entitic vol] 91.0 fL Normal 83.0-97.4 [facility] Comment on above: Performed By: #### C BCD #### [facility] CLIA # [id number] [address] [place] [address] MEAN CORPUSCULAR HGB CONC 33.9 g/dL Normal 32.7-34.8 [facility] Comment on above: Performed By: #### C BCD #### [facility] CLIA # [id number] [address] [place] [address] MONOCYTE # 0.8 10'3/uL Normal 0.2-0.8 [facility] Comment on above: Performed By: #### C BCD #### [facility] CLIA # [id number] [address] [place] [address] Monocytes/100 WBC (Bld) 10.9 % Normal 4.4-12.0 [facility] Comment on above: Performed By: #### C BCD #### [facility] CLIA # [id number] [address] [place] [address] NEUTROPHIL # 3.7 10'3/uL Normal 1.5-5.6 [facility] Comment on above: Performed By: #### C BCD #### [facility] CLIA # [id number] [address] [place] [address] Neutrophils/100 WBC (Bld) 54.5 % Normal 41.2-72.1 [facility] Comment on above: Performed By: #### C BCD #### [facility] CLIA # [id number] [address] [place] [address] PLATELET COUNT 253 10'3/uL Normal 122-359 [facility] Comment on above: Performed By: #### C BCD #### [facility] CLIA # [id number] [address] [place] [address] Platelet mean volume (Bld) [Entitic vol] 9.2 fL Normal 7.6-10.6 [facility] Comment on above: Performed By: #### C BCD #### [facility] CLIA # [id number] [address] [place] [address] RED BLOOD COUNT 4.12 10'6/uL Normal 3.85-4.88 [facility] Comment on above: Performed By: #### C BCD #### [facility] CLIA # [id number] [address] [place] [address] WHITE BLOOD COUNT 6.9 10'3/uL Normal 3.2-9.3 [facility] Comment on above: Performed By: #### C BCD #### [facility] CLIA # [id number] [address] [place] [address] COMPREHENSIVE METABOLIC PROF on 11-04-2020 Albumin [Mass/Vol] 3.8 g/dL Normal 3.5-5.2 [facility] Comment on above: Performed By: #### L IP, CM #### [facility] CLIA # [id number] [address] [place] [address] ALP [Catalytic activity/Vol] 61 U/L Normal 40-150 [facility] Comment on above: Performed By: #### L IP, CM #### [facility] CLIA # [id number] [address] [place] [address] ALT [Catalytic activity/Vol] 44 U/L Normal 0-55 [facility] Comment on above: Performed By: #### L IP, CM #### [facility] CLIA # [id number] [address] [place] [address] Anion gap [Moles/Vol] 12 mmol/L Normal 5-13 [facility] Comment on above: Performed By: #### L IP, CM #### [facility] CLIA # [id number] [address] [place] [address] AST [Catalytic activity/Vol] 26 U/L Normal 5-34 [facility] Comment on above: Performed By: #### L IP, CM #### [facility] CLIA # [id number] [address] [place] [address] Bilirubin [Mass/Vol] 0.6 mg/dL Normal 0.0-1.0 [facility] Comment on above: Performed By: #### L IP, CM #### [facility] CLIA # [id number] [address] [place] [address] Calcium [Mass/Vol] 9.2 mg/dL Normal 8.4-10.2 [facility] Comment on above: Performed By: #### L IP, CM #### [facility] CLIA # [id number] [address] [place] [address] Chloride [Moles/Vol] 100 mmol/L Normal 98-107 [facility] Comment on above: Performed By: #### L IP, CM #### [facility] CLIA # [id number] [address] [place] [address] CO2 [Moles/Vol] 25 mmol/L Normal 22-29 [facility] Comment on above: Performed By: #### L IP, CM #### [facility] CLIA # [id number] [address] [place] [address] Creatinine [Mass/Vol] 0.95 mg/dL Normal 0.57-1.11 [facility] Comment on above: Performed By: #### L IP, CM #### [facility] CLIA # [id number] [address] [place] [address] GFR > 60 Normal ml/min/1.73m 2 [facility] Comment on above: Result Comment: GFR values >60 are not clinically significant. Performed By: #### L IP, CM #### [facility] CLIA # [id number] [address] [place] [address] Glucose [Mass/Vol] 148 mg/dL High 70-99 [facility] Comment on above: Performed By: #### L IP, CM #### [facility] CLIA # [id number] [address] [facility] [place] [address] Potassium [Moles/Vol] 4.2 mmol/L Normal 3.5-5.1 [facility] Comment on above: Performed By: #### L IP, CM #### [facility] CLIA # [id number] [address] [place] [address] Protein [Mass/Vol] 6.7 g/dL Normal 6.4-8.2 [facility] Comment on above: Performed By: #### L IP, CM #### [facility] CLIA # [id number] [address] [place] [address] Sodium [Moles/Vol] 137 mmol/L Normal 136-145 [facility] Comment on above: Performed By: #### L IP, CM #### [facility] CLIA # [id number] [address] [place] [address] Urea nitrogen [Mass/Vol] 11 mg/dL Normal 7-18 [facility] Comment on above: Performed By: #### L IP, CM #### [facility] CLIA # [id number] [address] [place] [address] HISTORY PRESENT ILLNESSon HISTORY PRESENT ILLNESS Name: NICKI OVIEDO : 1975 Unit #: [id number] Age: 45 Family Physician: Pt Location: ER Arrival Date 11/04/201756 ER Physician: CHARISSE NORIEGA MD-ER [facility] Attending Attestation Attending Attestation I performed a history and physical examination of the patient and discussed management with the CONTINUOUS ABSORPTION PROCESS OPERATOR/PA. I reviewed the CONTINUOUS ABSORPTION PROCESS OPERATOR/PA's note and agree with the documented findings [...] and Medical Decision Making performed by the CONTINUOUS ABSORPTION PROCESS OPERATOR/PA is based on my personal performance of the HPI, PE and MDM. For CONTINUOUS ABSORPTION PROCESS OPERATOR/PA cases/ documentation I have personally evaluated this [...] NORIEGA MD 11/04/20 1836 CHARISSE NORIEGA MD [phone] cc: UNKNOWN Normal [facility] HISTORY PRESENT ILLNESS Name: NICKI OVIEDO : 1975 Unit #: [id number] Age: 45 Family Physician: Pt Location: ER Arrival Date 11/04/201756 ER Physician: CHARISSE NORIEGA MD-ER [facility] History of Present Illness History of Present Illness Time Seen: 18:19 History of Present Illness The patient is a 45 year old female who presented to the Emergency Department with the complaint of chrone's flare-up. Patient reports she feels as though she is having a Crohn's flare up. Her last colonoscopy was 2016. Patient follows with GI service from [place]. She denies any recent evaluation for her [...] pH 6.0 (5.5 - 8.0) Urine Specific [place] 1.025 (1.005-1.030) Urine Protein Negative mg/dL (NEGATIVE) Urine Glucose (UA) Negative g/dL (NEGATIVE) Urine Ketones Negative mg/dL (NEGATIVE) Urine Occult Blood Moderate (NEGATIVE) Urine Nitrite Negative (NEGATIVE) Urine Bili (more content not included)... Normal [facility] LACTIC ACID LEVELon 11-05-19 Lactate [Moles/Vol] 1.4 mmol/L Normal 0.4-2.0 [facility] Comment on above: Result Comment: Refl ex Lactic Acid if Result Greater Than 2 N Performed By: #### L AC #### [facility] CLIA # [id number] [address] [place] [address] LIPASEon 11-04-2020 Lipase [Catalytic activity/Vol] 19 U/L Normal 8-78 [facility] Comment on above: Performed By: #### L IP, CM #### [facility] CLIA # [id number] [address] [place] [address] UA WITH REFLEX CULTUREon BACTERIA, URINE OCCASIONAL Normal 0 [facility] Comment on above: Order Comment: Has S pecimen Been Collected? Y Does patient have any new or worsening URINARY symptoms? N Performed By: #### U ACS #### [facility] CLIA # [id number] [address] [place] [address] RBC, URINE OCCASIONAL Normal 0 [facility] Comment on above: Order Comment: Has S pecimen Been Collected? Y Does patient have any new or worsening URINARY symptoms? N Performed By: #### U ACS #### [facility] CLIA # [id number] [address] [place] [address] WBC, URINE OCCASIONAL Normal 0 [facility] Comment on above: Order Comment: Has S pecimen Been Collected? Y Does patient have any new or worsening URINARY symptoms? N Performed By: #### U ACS #### [facility] CLIA # [id number] [address] [place] [address] SQUAMOUS EPITHELIAL CELL URINE 1+ /lpf Normal 0 [facility] Comment on above: Order Comment: Has S pecimen Been Collected? Y Does patient have any new or worsening URINARY symptoms? N Performed By: #### U ACS #### [facility] CLIA # [id number] [address] [place] [address] Appearance (U) CLEAR Normal CLEAR [facility] Comment on above: Order Comment: Has S pecimen Been Collected? Y Does patient have any new or worsening URINARY symptoms? N Performed By: #### U ACS #### [facility] CLIA # [id number] [address] [place] [address] BILIRUBIN, URINE Negative Normal NEGATIVE [facility] Comment on above: Order Comment: Has S pecimen Been Collected? Y Does patient have any new or worsening URINARY symptoms? N Performed By: #### U ACS #### [facility] CLIA # [id number] [address] [place] [address] Color (U) YELLOW Normal YELLOW [facility] Comment on above: Order Comment: Has S pecimen Been Collected? Y Does patient have any new or worsening URINARY symptoms? N Performed By: #### U ACS #### [facility] CLIA # [id number] [address] [place] [address] Glucose Ql (U) Negative Normal NEGATIVE [facility] Comment on above: Order Comment: Has S pecimen Been Collected? Y Does patient have any new or worsening URINARY symptoms? N Performed By: #### U ACS #### [facility] CLIA # [id number] [address] [place] [address] KETONE, URINE Negative Normal NEGATIVE [facility] Comment on above: Order Comment: Has S pecimen Been Collected? Y Does patient have any new or worsening URINARY symptoms? N Performed By: #### U ACS #### [facility] CLIA # [id number] [address] [place] [address] Leukocyte esterase Test strip Ql (U) Negative Normal NEGATIVE [facility] Comment on above: Order Comment: Has S pecimen Been Collected? Y Does patient have any new or worsening URINARY symptoms? N Performed By: #### U ACS #### [facility] CLIA # [id number] [address] [place] [address] NITRITE, URINE Negative Normal NEGATIVE [facility] Comment on above: Order Comment: Has S pecimen Been Collected? Y Does patient have any new or worsening URINARY symptoms? N Performed By: #### U ACS #### [facility] CLIA # [id number] [address] [place] [address] OCCULT BLOOD URINE MODERATE Abnormal NEGATIVE [facility] Comment on above: Order Comment: Has S pecimen Been Collected? Y Does patient have any new or worsening URINARY symptoms? N Performed By: #### U ACS #### [facility] CLIA # [id number] [address] [place] [address] pH (U) 6.0 [pH] Normal 5.5 - 8.0 [facility] Comment on above: Order Comment: Has S pecimen Been Collected? Y Does patient have any new or worsening URINARY symptoms? N Performed By: #### U ACS #### [facility] CLIA # [id number] [address] [place] [address] PROTEIN, URINE, (MULTISTIX) Negative Normal NEGATIVE [facility] Comment on above: Order Comment: Has S pecimen Been Collected? Y Does patient have any new or worsening URINARY symptoms? N Performed By: #### U ACS #### [facility] CLIA # [id number] [address] [place] [address] SPECIFIC GRAVITY,URINE 1.025 Normal 1.005-1.030 [facility] Comment on above: Order Comment: Has S pecimen Been Collected? Y Does patient have any new or worsening URINARY symptoms? N Performed By: #### U ACS #### [facility] CLIA # [id number] [address] [place] [address] UROBILINOGEN, URINE 0.2 EU/dl Normal 0.1 - 1.0 [facility] Comment on above: Order Comment: Has S pecimen Been Collected? Y Does patient have any new or worsening URINARY symptoms? N Performed By: #### U ACS #### [facility] CLIA # [id number] [address] [place] [address] Coding Summaryon 10-29-2020 Coding Summary HTMLBase 64 ZvdzyuuwGKu5nKv+PGhlY WQ+DW4EAWXwS16grPFzxA 0GF7uCZX8SBRSQZEEOJX7 VCH0knJR3WObeQ9EtpkRz PjqzqEIjMW70RGo1JFO3d CosHEzffF9ubXDbO3d8Vy RlMK46tB01ZZdlKEJcNyC 3LjZpbjsgbWFy N7bqZvDzzYQdZpx+PHRhY mxlIHdpZHRoPScxMDAlJy GtsYmxVL3pBl3yKPIxAUX vbGxhcHNlOiBj r4bpLDInEBuiFL9zmJgqM 4RhgKE1HKEed9k2Bx61oH I+XVYaMZT4oRaxGPknm75 3AmZvz2gwARL7 zBThHToyYKS5E36he8X5M VVyGXDcBYH0zLS6uD2idX gvxojaI4GxmGUhElQ7LMP 3mCVixH0mrOmz ldrzhL2dTgn+F27XOO5UH HVFER6ZKpz0W8SeOvragV I+CW47HYWzDD69wYFpbGO do3jmyXr3NeQe SDFzUAG9mDnjWErmb8NnD QLqT09pxDGez9J0PIXcrI twiVBnTyDtqQF3cM3nGXs yxgihs5evmlhr Irfhs8ukdb55dC39X31xK TaeJRYkHRT0WIHrDAItvS lihq5jmF4hXa3+FSenx1e lh3vtiVr0ZtNr PXVqxmAihNegPQJ6w4ShZ u47H2OtlOqyh2WyWko7dq 28yOHzt2R3cZJ9HHvxNEX orC2iGWjnLbI8 WMRsDnNibO92fWKyEAisM x1dlEmxfEnwNG1qQHNhbf vrBVMzsC6vDBSwlSJfsQj iZF0xDCYdgbcv c848DsCzMZN7AUMwaZNyV 9KfkD1vMxAaTQEmEGDqS3 TupZSxVCkyB940PVzdXvN 4UMNamvHcP0Za VEHaqJanFiN0f8K9Xl2Gi 0WoadlgOXD1HAdjDRA1Sq Y1VaZlCcK4X9IdCra1OMB eyNvnOE7zI8Mi BOZvuuduxbpfkJU0VZVrR WBwqA47dNEmBWusAu6uj4 Q5n599MAKdTQRejS13Bu2 udDogMTBwdCBU uA2bbqtdw3qjqozuOnBjD ERaYRv4VNp4HEMyqFbtAl AaBMF0PjO3VKZ7wABwcW7 ibEpybfuuzJ8t Oyc+C33wwV9lDWC4BVA3i kmkHXAulwClKD90MN29S4 RyPjwvdGFibGU+PGRpdiB lmNoqVG6uSsFa m1qmf6FbHDrpL1RgDJWwI YibOfy2VLCrNQJ9lVI5kE 9zCQVoPQsdm5Y5sRZ5I1M oqoUjqf3lb6az UAFwKNkqL99dyFBzc2K7K IAyuEP0BCMsdQikXkEuyO 93Oyc+IMGdlEcmw2HoFgb sj0ciz6qerKp2 YcNvJHMhwuVjrGynMRL1b 7UlZj55O89vPNrbEBYrWH UhMOYnGNSmoTzmuz3ykC0 wIi8+PGNvbCB3 vHL5lM4oUVVlOkG3UGjvD 663PdCopBTfZjews5wxf8 zocFd8NtNqJQOpljXuzEb sLDV1c7VsKx10 G30nOZumESMlTIAbCQOcI DCrtAhuuc7waJ1vCf2+PC 3gd8fdug53nS33jJJ+PHR qTST3eNduIWeq MKCwwV0pWDjsFpL3RFCdB iJtnJ16rFXgPAsfCz4myK dfjDpkDB1jNLImmgksv33 1ZwAhg6lcAFHv tDJsNLgmPMY9X32mi5V3W BMnKBLxXVB6hPI4xA6eyD lnbjogbGVmdDsgdmVydGl jAVxmETsjU172 IHRvcDsnPlBhdGllbnQgT cZvVWw4A7GqXkb2RSVmsU oqDL3wmWZwSHutQp8kdCq meWcxXD6zSSHp jlbxi983TmLpk7kyZMYsy EMwQNnnHLJ2T46xe9M3KJ QxRUEdAHJ2mOX4pK6pdTo nbjogbGVmdDsg xsZixShhJUtuXKooT307N HRvcDsnPkJpcnRoIERhdG P5TK62WG99lCBtm0E3cTG 4Y7DkRDRfwpfi ubtgyHB7XYWtEZNnvD23E f8geQgnYp4mHNGwNLC8FL SucAVxO1PpkY3pEkDsSBP oLXZvK0HfkGBk LNrcM004URuuSkS2JTLym fKtT3ApWRStlObhVqH1g7 T1Ej9KJ7U9VN40SZ59hVS zn6K8sFR2K6Lf KKYflhwgdlyopGL1ZREgF BAyhS98Cb5kbAiuRm9iTQ EaSCW6XPTrgAGtL9QfxR9 yOiAjMDAwMDAw I1OvwLPtJNeyU145RVlqG zA0BHZnpxKeK4CdOTKhiJ yaHcE8p2M8Hp4FZWo3PF7 2VD80fEPvc9C8 cCH9G5GuERNhbvigxfbvq MG2AWXsYBPsbO07Vq7bvN ctGd6bDWJwOMR5TOEhvHR eJ9DpxQ5nRkCx AETqZRAnL1AzrAGpLMkwZ 439SUgqHsF6BUSfyxNuK1 OxLBXlmUukHjL2c9F6Id6 WZYNkRP49EJP0 uRH4NH36AH71G5GbJzgbw GFibGU+PHRhYmxlIHdpZH RoPScxMDAlJyBzdHlsZT0 iNi6gCFPcDZMm aEndxCVjXhDlx1yjAHOnK LvaRK1boVpkO5XkxTR8NI Nlc3y3Rv28F19pY9NjjUR +RNBtqAW6bTQ4 tB6wQaObDxQ0ASroG651P vDoeMBqMobuq4clp1icdP p8LrE2CNBfvoCblRldKTY 6d4LjGs76C94d IHdpZHRoPSIxNSUiIHZhb Xqyes1ltA4nEp0+PGNvbC E6xZB8mY7oSqOkQcR1OMl gO085QbGpbCVo Kzgbw4lnq7viiGy4UcQmZ VFuyaYezUtaXRW8s8PxSg 67W8IxmAfqm9IfYac4px8 1eAErq1N3qWE6 U3XxEPQdahoioOGfbHgyI O8zLOYdbcvbKPDweS8cDG LwN2o7AoJkHhQ9MAtyH6I lgaE0XNQsuGCk HXxmJUN9H81zl1X9SQFaX XHrSYM1aNY7zH9nxUalgl ogbGVmdDsgdmVydGljYWw sIDvaO200JAQl gBvzRIMblD3hEMKmyIHcz FylAO9wWSHbdujsZwoMDh XDWsldBL6MYSPLQUnVJnG USDwvdGQ+PHRk XQL9bYkcUChoHBYsgB6uQ QYeH7d0BkXzWgG0MBizP8 NgNKSnoramUm36lW5zStH vOiD2FRufP3Nu nyR2WUQraFLeCCoyZKG8X 78oa8U9WWYoVMPfVXP9lC J7pO7cxQsdxqdwsQImjEl gdmVydGljYWwt FAvbY537MSYvcMxjNiRkH yOzLyY6Hah9F3MzBbn6EM CscKzbVV2tqJFpORgxCa1 ojAixuRkxEB0t TOVusfeaDZTybE3gRALyf QLhjPlqBA9cMPJuthowo8 24ZaLbXKB0BRDzoHPaF1F iwB7tXuNgJZLl VMCmP0DebQOyGSubT498Z AmgLiK8TMUvslAyQ6XzYY ScpKeeDoO3p1O7Cw01OaE ZZWFyczwvdGQ+ HXKkOMK7kFtjBQspFSDro X4lSLGgD2i3QsMbBgD0PU nlV4ZnQOGxvrdhCa52kN9 sCxBqDrU6RRvy F5NhkvK8XVBczYRgBIheB LG4N87dg5P6ZANcCKRiXD T1wRB8rI3ykJzandfkxAN mdDsgdmVydGlj PGszQZaeH443IIImkLgyX kZFTUFMRTwvdGQ+PHRkIH A8uCisHOsfBTXblQ6rDUN xV8s3JfDbYsS5 URpvU8QyXMTbdyseVc17s X5fOgZoLfW7CPjoX7Kjfb Z4EOMygLVaELkjXTI1Q65 jr6Z9ADQeRAMw VPB5wXW4wK8nfIvbyawjm GVmdDsgdmVydGljYWwtYW scH077HFXdzZisIh0WJY7 0TA59W0UaSfku dGFibGU+PHRhYmxlIHdpZ HRoPScxMDAlJyBzdHlsZT 4bEg5bQPOuLQXmmUxorKZ aTyUrf7tzKXXk FOhoBI7ahAzxK0CupNS1S QBma8e0Oa84T45fD4HogN A+QKHrtUV5gER3uU4jTeK yFzI5GMzrQ291 NiQzoGLwJkjth1rff1ecd Zo6OzFqPLOvysTmnHlpUH H0w3YqMc66W53zCBboJYG oPSIyMCUiIHZh oHuafi5hvW2cHx7+PGNvb SD0uVY8xQ3eTyMeSuN1YH tnW944SpXbcMHeLitfP68 xB3WwsAF+PHRy Szr9WLQtqBsfDO4dbPMxM JhdIm0lFOA0JiNsJuBqKM qtF6IkKIFwfefqpnrmaUH 6RSZxZMNnoG45 Rh2viTufEy8xNIKvFSC4E KQszVKtL2QgeY9nGvSrWX AbDRRtJ9AdeJGuSNiaB34 6IPlmScG3GYLb vlEvF5HsBOVtgLuhQfG3g 7Z8Xd1GoJblsTGkUP0qIm FmLOw9Q6EdQxv4NQBczRp mDQ0vdRVtYLxc Bb8gaIndwEpvFR6cOKDzh xixi588KxQmh6mlDZCqaM MuAMjsSHE4J99oh6J1BRI uXVFuCRK5tOA4 oE9xjZxeipxxuDDbnYvln xMfxAlzZKhfIXvwU091RJ AazJmgVxXULpe6P3MyCsm 4SKBsbXlyPI7q gQHfISshHs7daRzzqHutD H8pGMMrdqpwh233SqErw2 joFWMaePEcROqwBMW0Y88 ei0L3KNEtSUOn RDE1sFT4hF0slQfuxnion GVmdDsgdmVydGljYWwtYW qrY281UOUlsTmmVw7RQkg 6S0QsNau3MZPs nBeeQE8usPAsOYqoIb7xa ErgpBklHZ2dCYAyywyfh1 07PbJmr2fdBIZhtUVwYJa yBPL3Z97mu9N9 HZHpAGGcUML6oVY5tK4mm GlnbjogbGVmdDsgdmVydG nhHTrhHBguK068NMNggFk nPlBheWVyOjwv dGQ+HP23bd74T2IcTjmtD dt4KLLkDUH2bLT9mF5oXZ ThVOgcw6R2mFA4E3UtylN mmk9ju8nzOOPb ZTo (more content not included)... [facility] Coding Summary HTMLBase 64 JjkmibyfKWs3oWg+PGhlY WQ+RR9OMMUqJ69meIRbwK 1RH8uCVM4QTYYJCIYBYM4 CEV3hiKB9QUjlG5RmnjPw FvaabLImNF34JUt3HHU4v XikCKqwyB4rbRQzP9n7Nq SvXG67lR32JBtePPIvOiL 3LjZpbjsgbWFy L7rgSjKxhEKeOad+PHRhY mxlIHdpZHRoPScxMDAlJy GzuWnqID3dUd3tGNRfDVO vbGxhcHNlOiBj u3ypEUSxJBioKG3wyJhpO 3WvmCQ3QNOpi0i8Ow83gX I+EVNeOVT4zAmpZBxxp86 7XuPuc5yyZCX3 cQLtYUzoKAG2M57zd3F0I OReDTUjKRA4pPF5bQ9ncK axzhtxN4CsrKAaCzB1OQM 1mWTswG7xpGiw kuwzxI6kRzi+U22SZX3QU OFNGY0ZXlt8P7MwRqcipC I+MS35OZHuKV53fUBwqVT uy7izsRg5GpJs SGZaTYR5tAmeOYlwj5AzM EPpL16kgYVam2S3YBHaaP esaBLfJxAjjHZ1mP8aOQn wyalyc7gcbfef Cecgg4hhsx51mH81N26pU EmvCHWzZIV6GHRrMCNymG eifg7swO8qQx3+IThlw2a uy5hfyWo4EcGo PJWdhoEkaMqwJGZ3q2WrQ e87M4VwaKdvx0OkJle0dy 27zJRhx6I8pQC0UUizXLD fnQ6zOZpnCoX6 MTCcLuYegT65cXEmAXswU w7ifWfbxHjfCZ7fIRBfzi itHLVsjC3jCWTcfGFooWf tZM4iAWRjvhnd e247DvPbKHH9EJHupLReM 6HwcX0dAdExFDWhIACsL5 HhvFPdCHmkH625FVrhHpG 0UMGmagBtV1Tp XWEzjZykFcI8n8K4Hc0Yi 4CssaupRCI4UZknCPI1Fg C2BlNxSaU0D6OkTlz7ZOY gxTyhVN3lJ0Uy NGRgxdxzwjpunME4ICDoG TKsgV01zIXoCMknNx2rh0 V1l924FDArDZKngK75Tt8 udDogMTBwdCBU cN9wjkqii1wozkinZvUnN PRoBSs7YIb1GQRohZjvJx OzUWR5ZdI5UQR8gSYdoP7 tmMekadysnD7y Oyc+N28cxX1wPYV5ODG3s ypbHZZxxyNqUD36EO33E2 RyPjwvdGFibGU+PGRpdiB baQwbBV6lLuSh r6kfz5UfOVcnB4TjBVGrI WbkQut2MULzBMZ5zZU3qG 9qHQPjLIvzt7G3zDM8C9K kbgPtwg2yy6iz MDQpENyyJ51qbPUlr0K7M UWtwOO0DXBdrLxdUnLfxH 93Oyc+UIUtxBbpc2GuNxl oq4qqp3yduZa3 FdVvVYCnfaMnhPvaDGA1s 7LbQk69Y76yKSmjHSXaLF UgUJEaWFOtaWjdhp0ggG4 wIi8+PGNvbCB3 pOH8tO8bZNMkKjE8NDbcB 694UcWjfZTdNwqwn5bes8 jrvQh1FbIbCFWlhlCwmKj aUWV4f5DsCg48 B78qOHhhMWOoQBXtKWDuG BXgkTamww1xaQ6oSb7+PC 1ba3ioiw76eU94pXH+PHR iOBO4xShkVRqd ASEjaA6xIWcdZxU7DRMuK iXdqX59aOAoFBnsOp4uqN velTaqYM5eZDVnxvhkl84 0TgPuj2uzOHHd fUUrHWeoHWQ4C51xg8O6J QMoKRUpMBG7hSQ2oG2nyU lnbjogbGVmdDsgdmVydGl yUAcjTHlqT106 IHRvcDsnPlBhdGllbnQgT uSeCKo8O2LcSom9AAGctY utCD0krAImHQatKi9yzGj hlQyuFV7mGMNq ggirr003VrAbb6ukKOGyl QCpIGwtZDI0Y25rs1D5BE PwYZFcCML6lNV1qE6fuCo nbjogbGVmdDsg kdNecTepYBwfSBnxM873Z HRvcDsnPkJpcnRoIERhdG A2JD23ZR00rTFna6I6oSX 3A1SfROPfzxtp bbttyWB1IKGiRKHrxX17Q t2uvMbpWe5pAKElIYO3YB TtjCKlL3DdmC4iMmRyAWG aESDqU5YrqXAl BUfvK299CYzqXgS9ZPNaz nPpY9KtAWGslOtwFzA7n3 S3Xx3JA1S0KI66JG74xPD oq6U8mDX9H6Xf NPTqkecvhqvnrYZ1KXEaV EHeeK18Eu0otFdiXy4iWX RyGGK4GPWtjXJhI3BxiN2 yOiAjMDAwMDAw K4AjzXZwOFieB177NYcmR dT2FZWnsgIfG4ZxDQQlyC auZqJ1y2U8Mc5XTUp2KL8 0AQ84cVZzh0S9 pJL3A8IsHMJfxnxpngzoz IQ2NLOaTSPoaS25Yk9hmV zoIa0bQSElMJZ5LVWebGD sT7YjkG2sRvRx PRYgLTXaU5TwaESfQLnkS 038ALzjJwP2QGDxmlKbU8 FxDCAueMdgJdS8u1Y6Wj7 NORTiVD49YVA3 mFH3FT40RU83I3ZuLxtjm GFibGU+PHRhYmxlIHdpZH RoPScxMDAlJyBzdHlsZT0 eBx8hANVmFVXw bRattHUpRoJbl2ybLVVkU KhuMN1tmAupC3RupUY0DO Nbu8w4Zk58K35tC9KoyVR +WPXjwOT7fRQ1 nG3yOrBlEkZ9XZlxE282B tUoxJJkWidaf8xlj0jpvV z9ZiN8KDCkloXuqRzmWCY 8e0XsTq03A53i IHdpZHRoPSIxNSUiIHZhb Zkmqj6hrQ5yMz4+PGNvbC B5bDG2wY2rZqJnQbR6SEo gZ822RuImaLIp Ffzcj7iev8sgoHj5MnVmC HGutjVqkVhbVSJ7w7IoEw 00M7AnnQiub1OzFyw7xv3 0dSDlm1H8lKL9 J4DnJZAnjlmrnJMlzFskH V5jLXRetvqtFXPorR6jTL KaA3t6OnEcRdN6WNrwV3M lpcA4HWRltNMt MHrcQGR4E78mo5J6LOYhG TXiRHP0nRP8bX7ipNxgju ogbGVmdDsgdmVydGljYWw kKNltG958HTVc vIvvGHGbaF2eSZAsxEOqh YxoEF8bNKBrrgkyXmgBLe EFTxvdSF3ZHXBBWPvFDoI USDwvdGQ+PHRk ZFS6zPotBWwsFVYegI0hE PHbM3v4KeIhGvB4MKzxJ9 GlBEXqadcwAo68nN4yOkB tIoW7ZJdyJ6Lp naQ8MDLgmAUuMAgsOVO3B 12zg0I2NRXnTVCtUVI9mV R5dH2rfPbkkkqehVRztIu gdmVydGljYWwt REgvI771GGJaoFhrGwCpU zAmUaE8Onf1U9TnCyj1TO ZycSdcGB1ciBWnCEyiPh3 ynUyvlDsxZK5i NBVqyrhsZFFjkR2bWKGpz EHioVysZM1jZQSbiosza1 80IaVzAWL7MPVotGGpY8D emK7iOxYtUNTc UFUlE5UooTXcRIgxK145U MnySnE4YYTluhGvE6MtFS QskOfgNhC8u2S9Ga67HmD ZZWFyczwvdGQ+ BZXsVXX5wVsjAOocAPXue P6sQJAtN9r8QdBzAlR7VJ szC5DhQZHlxogvAs57jA0 oObClNrG0ERzw E2DjuvT9QDUrwNXbNAcjM OE8A47ly9E1GEQzZHLyTR U9mZI0cE1tyZyjtwevxIJ mdDsgdmVydGlj RDbbGTlqK366PUCtoHkjN kZFTUFMRTwvdGQ+PHRkIH Z2rLonEYjrPRNlwX0oBWG mB0g5IiGuCvH4 EBqxW9BwABCpgkzeVy18m P6yZtBgWaU5CJcbE4Mowd H3ARPocJMhEAwdEGV3B72 bu5G5WKYpNLXg XFB6hKX7vB2gfNzwmbsjn GVmdDsgdmVydGljYWwtYW mkB029SZNgsVjwMvZzOBZ oOW2sbFfthKP+ EU54lm06M1FrIfexBgj9U WLiIFL9aVC2mL7hVJFlHF rwb6P8xQQ1P8VsjdDfst4 nf6wzWOSvLTdi N94llXTes8Z1DGLsrTC2D HNspUsjEiEybP62Vul+PG IutOjaw5CrSxjxa9xvt4z anAu3MlXaNLCj ywZdlDigFAQ3a0OqTu74C 29sIHdpZHRoPSIzMCUiIH KkjQxosk6txK8yYe8+PGN idAV2kEW8bF3r FkTxMtT8TUsrC427QbGcp HCvJflat3osq1cfgUs1Fi OrBWZnqeAgfOmgYCF0k3S rLk38Q4JjrOll q8BtScc7vc49oSTml0Z4p VN4R3KwITPqrbehgJLwaN mtLI4yDUUnadkhBZOcmP1 pIHUpE5b7CvBz TvT8VFytY5HdcpN7CQVhw VKfCLDoqDYYtX8pinubf9 vcyqpyDbCgCCRzUPy6VNb 0LWFsaWduOiBs PWW6HrM6JKX4xQWulE5pe ByhemicaR6wLvq+UGh5c2 agoOMlIT3kqDZ3CU60MU3 1qMHns4F5hDY8 F0RxKMYxemzhlgtxbUE9Q XVeNVMkvK21Fe1khRhsJd 5eJABnREC3SIEogLYzN9T qbG0pWcMxDTRv WPWeT9LzbFJzMKvbA030M DejRcP6WZThaeTeC6XnWV DpxBrbWiY5e4C3Ym6JQA6 5CD44KS11hCFm q2C6zBV8U5JvKUJcpvnul qfvaHE8BJGhEDBhoA36Tx 2neSxeZo1lXSOiXBC4JEL ruRJdP5LrnC9l GvAiNTGxDJIyE3VupSLcF JyfA711HMvrLhR7APFcwm NqC1NjORRhjPujSxD3e6D 5Bf8GJz38DL12 WB30gKVjp2K0hCQ2Z3MwB NLetuisuvihjEA3VHMbGJ FmcQ35Ig0wnFwiSp4uKWS tQOF6VIHoqBBq R0QbzJ4yVhYnZXEqOCSiC 2MhhREsDBbbD982ORvbFi E0PSZwlbLcT9BrIPNkyEz tByD2a0W5Ko4O RRcpezc0P6GlZhpqpAZ+P H56OPOqXP45mTAxuHNtb3 psyGo4FiRjTDGvQRD8uTu uVLcyb9IhMTTd Y29 (more content not included)... Normal [facility] C Urineon 10-26-2020 C Urine Urine Culture ordere d as a result of parameters set on specific urine dip and urine microsopic results. Mixed skin, or urogenital maria c. Clinically insignificant Normal [facility] Comment on above: Performed By: #### 1 [id number], [id number], [id number] #### [facility] (DEFAULT) [address] [place] [address] .Auto Diff 110-24-2020 Auto Stephenson % 9 % Normal 1-12 [facility] Comment on above: Performed By: #### 2 555031, 48020484, [id number], 8446478057, 6513354, 0379041341 ####[facility] (DEFAULT)[address] [place] [address] 90366 Baso Abs# 0.0 x10 Normal 0.0-0.2 [facility] Comment on above: Performed By: #### 2 838187, 88013030, 1897943200, 0893077518, 0391074, [id number] ####[facility] (DEFAULT)[address] [place] [address] 00091 Basophils/100 WBC (Bld) 0.2 % Normal 0.2-2.0 [facility] Comment on above: Performed By: #### 2 239881, 28633557, 7151546546, 9018347730, 4016109, [id number] ####[facility] (DEFAULT)[address] [place] [address] 49689 Eos Abs# 0.1 x10 Normal 0.0-0.4 [facility] Comment on above: Performed By: #### 2 108529, 87681891, 2967422196, 6039192402, 0151351, 0121110521 ####[facility] (DEFAULT)[address] [place] [address] 31175 Eosinophils/100 WBC (Bld) 0.9 % Normal 0.9-4.0 [facility] Comment on above: Performed By: #### 2 639169, 89778988, 2558824119, 8666356362, 3099457, 1584198403 ####[facility] (DEFAULT)[address] [place] [address] 68203 Lymph Abs# 3.1 x10 High 1.3-2.9 [facility] Comment on above: Performed By: #### 2 083179, 68646658, 0098241338, 3574264729, 0056049, 3214024303 ####[facility] (DEFAULT)[address] [place] [address] 57097 Lymphocytes/100 WBC (Bld) 37 % Normal 14-48 [facility] Comment on above: Performed By: #### 2 518488, 67866323, 2122455593, 6491762080, 0961132, 2140385070 ####[facility] (DEFAULT)[address] [place] [address] Stephenson Abs# 0.7 x10 Normal 0.0-0.8 [facility] Comment on above: Performed By: #### 2 486615, 64456923, 2096501332, 9651856580, 7560497, 3006276128 ####[facility] (DEFAULT)[address] [place] [address] Neut Abs# 4.5 x10 Normal 1.5-9.2 [facility] Comment on above: Performed By: #### 2 825009, 75369502, 3303873386, 0713593862, 2609608, 0638882630 ####[facility] (DEFAULT)[address] [place] [address] Neutrophils/100 WBC (Bld) 53 % Normal 44-88 [facility] Comment on above: Performed By: #### 2 613261, 04740441, 4456411749, 6689081714, 4115943, 1305998885 ####[facility] (DEFAULT)[address] [place] [address] CBC w/ Auto Diffon Erythrocyte distribution width (RBC) [Ratio] 13.4 % Normal 11.5-15.0 [facility] Comment on above: Performed By: #### 2 735375, 02362614, 9766316153, 7791455527, 4199234, 7244335597 #### [facility] (DEFAULT) [address] [place] [address] Hematocrit (Bld) [Volume fraction] 41.2 % High 33.7-40.4 [facility] Comment on above: Performed By: #### 2 994199, 64486669, 9805154964, 6595820044, 4261619, 1523675512 #### [facility] (DEFAULT) [address] [place] [address] Hemoglobin (Bld) [Mass/Vol] 13.5 g/dL Normal 11.3-15.9 [facility] Comment on above: Performed By: #### 2 357031, 99665144, 3773238169, 5866238823, 2990776, 4632582884 #### [facility] (DEFAULT) [address] [place] [address] 37001 Instr WBC 8.4 x10 Invalid Interpretation Code [facility] Comment on above: Performed By: #### 2 235425, 07753008, 1710523027, 2060904522, 6233464, 1020637165 #### [facility] (DEFAULT) [address] [place] [address] 56958 Man Diff? Auto Normal [facility] Comment on above: Performed By: #### 2 857966, 72736365, 3727841639, 4168315987, 3575192, 8508482557 #### [facility] (DEFAULT) [address] [place] [address] 69355 MCH (RBC) [Entitic mass] 30 pg Normal 24-34 [facility] Comment on above: Performed By: #### 2 661072, 98793081, 9261773855, 3242231290, 1975261, 4148976707 #### [facility] (DEFAULT) [address] [place] [address] 42914 MCHC (RBC) [Mass/Vol] 33 g/dL Normal 26-37 [facility] Comment on above: Performed By: #### 2 131526, 66449950, 8129489212, 3001931235, 6151492, 3081167081 #### [facility] (DEFAULT) [address] [place] [address] 28185 MCV (RBC) [Entitic vol] 92 fL Normal 81-100 [facility] Comment on above: Performed By: #### 2 487664, 23193264, 3477086784, 8216399229, 1647125, 2917031126 #### [facility] (DEFAULT) [address] [place] [address] 50193 Platelet 312 x10 Normal 138-427 [facility] Comment on above: Performed By: #### 2 785880, 21180144, 5343018673, 7597600840, 1573357, 0949041293 #### [facility] (DEFAULT) [address] [place] [address] Platelet mean volume (Bld) [Entitic vol] 8.9 fL Normal 6.3-10.2 [facility] Comment on above: Performed By: #### 2 110509, 39723184, 7196319808, 5210791197, 8380226, 4844944096 #### [facility] (DEFAULT) [address] [place] [address] RBC 4.46 x10 Normal 3.70-5.30 [facility] Comment on above: Performed By: #### 2 897696, 01791644, 6926824071, 7060453388, 9275803, 7327595262 #### [facility] (DEFAULT) [address] [place] [address] WBC 8.4 x10 Normal 3.5-10.5 [facility] Comment on above: Performed By: #### 2 955167, 90650854, 8516161264, 7395658257, 3517577, 2490967600 #### [facility] (DEFAULT) [address] [place] [address] Standardon 10-24-2020 eGFR Non AA >60 Invalid Interpretation Code [facility] Comment on above: Performed By: #### 2 067292, 77383720, 3107511886, 3677664343, 9992256, 3988282056 ####[facility] (DEFAULT)[address] [place] [address] eGFR AA >60 Invalid Interpretation Code [facility] Comment on above: Result Comment: [employer] chris Kidney disease could be indicated at eGFRs of less than 60 ml/min/1.73m2. Kidney Failure is indicated at less than 15 ml/min/1.73m2 Performed By: #### 2 577932, 09366722, 8255033032, 9311687760, 3298496, 9120838490 ####[facility] (DEFAULT)[address] [place] [address] Albumin [Mass/Vol] 4.0 g/dL Normal 3.5-5.0 [facility] Comment on above: Performed By: #### 2 954885, 17190492, 3846605438, 8134483650, 7117978, 1663482771 ####[facility] (DEFAULT)[address] [place] [address] 18975 Albumin/Globulin [Mass ratio] 1.2 {ratio} Low 1.4-2.6 [facility] Comment on above: Performed By: #### 2 027706, 81528944, 6456161398, 9434388138, 4902125, 0353603163 ####[facility] (DEFAULT)[address] [place] [address] 83708 Alk Phos 58 IU/L Normal 32-91 [facility] Comment on above: Performed By: #### 2 204689, 37865644, 3282338968, 4330835528, 5715453, 7344056754 ####[facility] (DEFAULT)[address] [place] [address] 61495 ALT [Catalytic activity/Vol] 36.0 U/L Normal 14.0-54.0 [facility] Comment on above: Performed By: #### 2 779174, 56454682, 9037148747, 1314970329, 2557586, 7031778288 ####[facility] (DEFAULT)[address] [place] [address] 58132 Anion gap [Moles/Vol] 16.0 mmol/L Normal 5.0-19.0 [facility] Comment on above: Performed By: #### 2 119167, 22153313, 6138128547, 5157577022, 0388005, 8841802399 ####[facility] (DEFAULT)[address] [place] [address] 50852 AST [Catalytic activity/Vol] 22 U/L Normal 15-41 [facility] Comment on above: Performed By: #### 2 201943, 97202958, 7830671026, 1446726261, 5991008, 7064459300 ####[facility] (DEFAULT)[address] [place] [address] 30007 Bili Total 0.7 mg/dL Normal 0.3-1.2 [facility] Comment on above: Performed By: #### 2 246811, 65177306, 8424339740, 1001735877, 3061339, 7334217182 ####[facility] (DEFAULT)[address] [place] [address] 71360 Calcium [Mass/Vol] 9.2 mg/dL Normal 8.9-10.3 [facility] Comment on above: Performed By: #### 2 359639, 25423446, 5494189898, 6484900957, 9060320, 8627657550 ####[facility] (DEFAULT)[address] [place] [address] 74393 Chloride [Moles/Vol] 98 mmol/L Low 101-111 [facility] Comment on above: Performed By: #### 2 098643, 81372480, 6651481910, 3572473757, 3275792, 3160522762 ####[facility] (DEFAULT)[address] [place] [address] 87598 CO2 [Moles/Vol] 26 mmol/L Normal 21-32 [facility] Comment on above: Performed By: #### 2 405256, 31840466, 8786746500, 9314320437, 6415069, 3660498109 ####[facility] (DEFAULT)[address] [place] [address] 93367 Creatinine [Mass/Vol] 0.93 mg/dL Normal 0.60-1.30 [facility] Comment on above: Performed By: #### 2 191328, 01745543, 3598403445, 9706319225, 7772381, 9684915205 ####[facility] (DEFAULT)[address] [place] [address] 89733 Globulin (S) [Mass/Vol] 3.2 g/dL Normal 1.5-4.3 [facility] Comment on above: Performed By: #### 2 204513, 91785324, 7719954969, 1587088576, 1800032, 8056198209 ####[facility] (DEFAULT)[address] [place] [address] 71062 Glucose [Mass/Vol] 183.0 mg/dL High 74.0-118.0 [facility] Comment on above: Performed By: #### 2 674336, 47394993, 4342703735, 9362102564, 9903975, 6712565121 ####[facility] (DEFAULT)[address] [place] [address] 61794 Osmolality 278 mOsm/L Invalid Interpretation Code [facility] Comment on above: Performed By: #### 2 049980, 84900812, 3986059558, 8942032565, 5346574, 4094028164 ####[facility] (DEFAULT)[address] [place] [address] 27560 Potassium [Moles/Vol] 3.7 mmol/L Normal 3.6-5.1 [facility] Comment on above: Performed By: #### 2 494486, 05473940, 2222779171, 8807483520, 8467898, 4425781641 ####[facility] (DEFAULT)[address] [place] [address] 80246 Protein [Mass/Vol] 7.2 g/dL Normal 6.5-8.1 [facility] Comment on above: Performed By: #### 2 544849, 63080410, 8115645302, 9711792852, 6717658, 3943207604 ####[facility] (DEFAULT)[address] [place] [address] 20577 Sodium [Moles/Vol] 136.0 mmol/L Normal 136.0-144.0 [facility] Comment on above: Performed By: #### 2 896190, 78121443, 1541315904, 5051652691, 1001659, 7955194376 ####[facility] (DEFAULT)[address] [place] [address] 85479 Urea nitrogen [Mass/Vol] 17 mg/dL Normal 8-26 [facility] Comment on above: Performed By: #### 2 [id number], [id number], [id number], [id number], [id number], [id number] ####[facility] (DEFAULT)[address] [place] [address] Urea nitrogen/Creatinine [Mass ratio] 18.0 mg/mg High 4.6-16.2 [facility] Comment on above: Performed By: #### 2 [id number], [id number], [id number], [id number], [id number], [id number] ####[facility] (DEFAULT)[address] [place] [address] ED Clinical Summaryon 2020 ED Clinical Summary [facility] - Emergency Department [address] [place] [address] ED Clinical Summary PERSON INFORMATION Name: NICKI OVIEDO Age: 45 Years Sex: FEMALE : 1975 MRN: Acct#: Visit Reason: Nausea; Vomiting; Diarrhea; ABD PAIN, NAUSEA Arrival: 10/24/2020 10:46:34 Discharge: 10/24/2020 12:28:00 LOS: 000 01:42 Check In: 10/24/2020 10:46:34 Checkout:10/24/2020 12:28:00 Address: [address] [place], [place] [id number] PCP: Duke Velazquez PROVIDER INFORMATION Provider Role Assigned Unassigned DOMINGUEZ EDWARDS ED PA 10/24/2020 10:47:33 Luna Bender TUBE CARRIER Nurse 10/24/2020 11:07:26 VITALS INFORMATION Vital Sign [...] provider. She reports that she is from [place] visiting for Mother[place] Day. Patient states that [...] ENT: -pharynx pink and moist. NECK: -Supple (bpnr-ky-mdiby): non-tender. CARD: -Rate and rhythm: Regular -Edema: [...] flareups flora (more content not included)... Normal [facility] ED Note - Physicianon 2020 ED [...] provider. She reports that she is from [place] visiting for Mother[place] Day. Patient states that [...] ENT: -pharynx pink and moist. NECK: -Supple (jkmi-og-djemb): non-tender. CARD: -Rate and rhythm: Regular -Edema: [...] she declined (more content not included)... Normal [facility] ED Note-Nursingon 10-24-2020 ED Note-Nursing Pt presenting ambulatory to ED with c/o nausea, vomiting, diarrhea, and abdominal pain worsening this morning. Pt has a hx of Crohn's. Rates pain 02/25 currently. Normal [facility] ED Patient Summaryon 021 ED Patient Summary [facility] - Emergency Department [address] [place] [address] PATIENT DISCHARGE INSTRUCTIONS Patient Information Name: NICKI OVIEDO Age: 45 Years Date of : 1975 Reason For Visit: Nausea; Vomiting; Diarrhea; ABD PAIN, NAUSEA Arrival Time: 10/24/2020 10:46:34 Primary Care Physician: Duke Velazquez Attending Physician: Maico Sykes MD Comment: Visit Diagnosis: Diagnoses This Visit Abdominal pain (R10.9) Diarrhea (R19.7) Diarrhea ([id number]) Nausea ([id number]) Nausea & vomiting (R11.2) Vomiting ([id number]) Prescription Information: If you have been given a prescription for narcotics, seek immediate medical attention if you have any difficulty breathing or any sudden status changes such as confusion and sleepiness. If you or anyone you know is experiencing suicidal thoughts, mental health, alcohol and/or drug addiction problems; contact the [facility] 08/01 Crisis Hotline -text 4hope to 741741. If you received any narcotics, sedation, or [...] any legal documents With: Address: When: Duke Velazquez [address] [place], [place] [id number] Business (1) Within 2 to 4 days Comments: Follow-up primary care provider next couple days for reevaluation. Continue with prednisone over the next few days, your normal pain medication at home along with Zofran as needed. Continue to stay hydrated. Return to the emergency department for any worsening issues. Medication Information: The exam and treatment you received today in the [facility] were for an urgent problem and are not intended as complete care. It is important for you to follow up with a doctor, nurse practitioner, or physician?s commercial escrow assistant for ongoing care. If your symptoms [...] so we can reach you if necessary. [facility] Emergency Department has provided you with a complete list of medications post discharge. 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 [facility] Extra Redon 10-24-2020 Tube Collected Yes Invalid Interpretation Code [facility] Comment on above: Performed By: #### 2 [id number], [id number], [id number], [id number], [id number], [id number] #### [facility] (DEFAULT) [address] [place] [address] Lactic Acidon 10-24-2020 Lactic Acid 17.7 mg/dL Normal 4.5-19.8 [facility] Comment on above: Performed By: #### 2 [id number] ####[facility] (DEFAULT)[address] [place] [address] Lipaseon 10-24-2020 Lipase Level 24.0 IU/L Normal 22.0-51.0 [facility] Comment on above: Performed By: #### 2 [id number], [id number], [id number], [id number], [id number], [id number] ####[facility] (DEFAULT)[address] [place] [address] UA Ifshp8zi 10-24-2020 UA Amorph. Few [facility] Comment on above: Order Comment: Urina lysis Microscopic order added on by [employer] Expert Rules system. Performed By: #### 1 [id number], [id number], [id number] #### [facility] (DEFAULT) [address] [place] [address] UA Bacteria 1+ [facility] Comment on above: Order Comment: Urina lysis Microscopic order added on by [employer] Expert Rules system. Performed By: #### 1 [id number], [id number] #### [facility] (DEFAULT) [address] [place] [address] UA Mucous 1+ Normal [facility] Comment on above: Order Comment: Urina lysis Microscopic order added on by [employer] Expert Rules system. Performed By: #### 1 [id number], [id number], [id number] #### [facility] (DEFAULT) [address] [place] [address] UA RBC 3-5 [facility] Comment on above: Order Comment: Urina lysis Microscopic order added on by [employer] Rules system. Performed By: #### 1 [id number], [id number], [id number] #### [facility] (DEFAULT) [address] [place] [address] UA Squam Epi Moderate [facility] Comment on above: Order Comment: Urina lysis Microscopic order added on by [employer] Rules system. Performed By: #### 1 [id number], [id number], [id number] #### [facility] (DEFAULT) [address] [place] [address] UA WBC 0-2 [facility] Comment on above: Order Comment: Urina lysis Microscopic order added on by [employer] Expert Rules system. Performed By: #### 1 [id number], [id number], [id number] #### [facility] (DEFAULT) [address] [place] [address] UA w Culture if Ind Standard on 10-24-2020 Breakpoint UA [facility] Comment on above: Performed By: #### 1 [id number], [id number], [id number] #### [facility] (DEFAULT) [address] [place] [address] Color (U) Yellow [facility] Comment on above: Performed By: #### 1 [id number] #### [facility] (DEFAULT) [address] [place] [address] Culture? Indicated Invalid Interpretation Code [facility] Comment on above: Performed By: #### 1 [id number] #### [facility] (DEFAULT) [address] [place] [address]11[address] Glucose (U) [Mass/Vol] Negative Normal [facility] Comment on above: Performed By: #### 1 [id number] #### [facility] (DEFAULT) [address] [place] [address] 97528 Ketones Ql (U) Negative Normal [facility] Comment on above: Performed By: #### 1 [id number] #### [facility] (DEFAULT) [address] [place] [address] 94763 Micro? Indicated Invalid Interpretation Code [facility] Comment on above: Performed By: #### 1 [id number] #### [facility] (DEFAULT) [address] [place] [address] 42583 UA Bilirubin Negative Normal [facility] Comment on above: Performed By: #### 1 [id number] #### [facility] (DEFAULT) [address] [place] [address] 03233 UA Blood SMALL Abnormal NEGATIVE [facility] Comment on above: Performed By: #### 1 [id number] #### [facility] (DEFAULT) [address] [place] [address]12 UA Clarity CLEAR Normal [facility] Comment on above: Performed By: #### 1 [id number] #### [facility] (DEFAULT) [address] [place] [address] 87437 UA Leuk Est Negative Normal NEGATIVE [facility] Comment on above: Performed By: #### 1 [id number] #### [facility] (DEFAULT) [address] [place] [address] 84854 UA Nitrite Negative Normal NEGATIVE [facility] Comment on above: Performed By: #### 1 [id number] #### [facility] (DEFAULT) [address] [place] [address] 97415 UA pH 5.0 Normal 5-8 [facility] Comment on above: Performed By: #### 1 [id number] #### [facility] (DEFAULT) [address] [place] [address] 61692 UA Protein Negative Normal NEGATIVE [facility] Comment on above: Performed By: #### 1 [id number] #### [facility] (DEFAULT) [address] [place] [address] 44846 UA Spec Grav 1.025 Normal 1.001-1.035 [facility] Comment on above: Performed By: #### 1 [id number] #### [facility] (DEFAULT) [address] [place] [address] 17637 UA Urobilinogen 0.2 mg/dL Normal 0.2-1.0 [facility] Comment on above: Performed By: #### 1 [id number] #### [facility] (DEFAULT) [address] [place] [address]191 Urine Source Clean Catch Normal [facility] Comment on above: Performed By: #### 1 [id number] #### [facility] (DEFAULT) [address] [place] [address] Coding Summaryon 10-14-2020 Coding Summary [facility] DndqvcxrWIc9eAz+PGhlY WQ+WC3TBIRrC44cgWGlbK 5VN0mRNF3THDNUFLZFDJ4 PHI0tgFK9KKbqG2MemkIe BfaqiYDaDQ28WIj2NHD9z JbvAOuggO1vwKLtK2a7Gj QrGN80xX27KArjCZAkHuN 3LjZpbjsgbWFy M8jfNdDgnFBsPda+PHRhY mxlIHdpZHRoPScxMDAlJy JbmEyxBY8jKv4wHYYnDES vbGxhcHNlOiBj n9adTSBbIVkjAS1usRcfR 8BfuHV8UPPgo0e2Jq48jG I+TAFyEWM5iQpnWTdvt84 3KvJsu6saZQW8 oVVrJUhbDRY1H51hq2H9C MKrFUWsZCO1rRL1uN8xzF uejlnzY6WcsUYpBuE2WQR 7dYAbmM7fpYyr tzpsaP3gNzz+A76FUU4MQ DVCRS8EWnp3C2XcPgeurC I+KK36SGKoUW65dZEkaTQ la0eieMz7VtGp EGLtQBD0gFdcHNkwv3TgH DVyQ93qpUPyf3E8AFAyaN rqfDGzKzBxkGR6dB6pBSu uzkxrr9lriavk Qikmn2alyi66aP49B45kU AqyJXMvZAU9YSDvYBRttW qfpd7zmD0wFm1+VMldn6k es6kpnSb5FhKs KYHdccBajDnrTKT1d0AuG v62R8DhmDxnp1RkRax3ul 45pXTwh2X6xXW4RTqgECX vqO0bQAnoWfU0 JPVjGlXulT42zFVdEZxhG t3iyTvqmPmoOA8tCBNdjy zdFJUrjX4uISIhhMBvzWl uFT3lXHWhuiiw s721OxEzMKP4WNFadNUvE 6MaoF6hCkDmZBIhHZHjX4 ZouZPhCFmlH011GYpeHoD 0ZDSggkTvK3Jx UHFfvXitYjO0u0S8Au1Wd 7TtekbtEXI7FEkgKGN1Au N6GkGmOrZ0X3VoXvt0SLN voEjyUA2aC7Bi VGMfxocrsveldOX2GFJoW JNasW91jVChRKexIx2ic0 W0c518YTAaDFAqoI61Jr3 udDogMTBwdCBU sD3cofrsd0jeobdhXdKcB MHsHVu0XOs0LANayEzkNx ExQIL5EqD5SRE8mQZqkA5 brRkkztsqtC0d Oyc+J99gsK1qDQW0FSN0w rwtDCHnzrVgNN29SA72K4 RyPjwvdGFibGU+PGRpdiB rmCsgMD9wEfWi n9nks4TlEXdoS7TiDCLcA VnqBrt1XAPtVNH0tXY9dX 5mNRQdWPsdc4D3jDZ5Z0T smbGzek6xm0jg ACEwDUgaN61vfYOud5V4L RMofIA5XWAxxAstRtMygS 93Oyc+LULaeNwrb5EaJmt wx3oic5yygDn8 EuBbUYQgljQnqCmpESL6b 1IaSk78S59eHUwkQNAiHC UpUOLiRNUzcOzuxw7xaF2 wIi8+PGNvbCB3 wLB7iH5uAPVkVnF6ZNlhM 467EtUeiNLrHmhmm3aoa0 podUr5HzIkJTCfphLfrEi wNSU6k0KiHk20 W39iQMuvSHJzWLEpZNTpO OOmqLujbg9giO4qMe9+PC 3ar0deek27hH54zNW+PHR uZEO5tRdiFXyh PFFpgV2xNJnrWzH8NCNlS sGiaO27rFHkPYdfNw3qrP senOpkIO0fMCPnilxdm97 2YzRve6bwYSYk wUEtBCfhHIZ6V47yu2Y9U PAeKLMeSOE6dQR7qG6flY lnbjogbGVmdDsgdmVydGl wYVgtFVbnK406 IHRvcDsnPlBhdGllbnQgT rVeQLw7A2ZmJat0MXEkfN kfLP1uaXSyYGzwLt1bsFw uzOehMX9uIAYg qxskm942CkZkl5qrCNLwa SEdQAudCSJ9L24ty1I0VM LqFEXqTPL1zBR6zX7vnAa nbjogbGVmdDsg izUmlWioFMlnPEgtM522P HRvcDsnPkJpcnRoIERhdG C3NM56RU55lEMez6C6tHQ 0F6UdETKicngp wzezyHJ1XCHsKSOetH34D l1swHxfYz9dAOWdJEK3NA XwxFAaO2CvrC3hAoXuCFI vJRBcS9NuhUZm NCeeF538EZvtBpL9VCBkv sBoZ6NyNRSaoKraYlW0h7 W9Lt7KP6A2TB46ZS86xVD hj7F8tJA0X4Bp VAVhvuglqigioCD6TNDcY AYlrY12Sr8acVkiSw1hEM ZzHEB3ZHYaiLOoF9YsiC6 yOiAjMDAwMDAw T9OxmRTeQUvjK262KKuxE cA3WPDjvjAeR2FfQWBcvW wkJeB6j4P9Nu7APSw7DW1 3BX06fOVnt4K1 zYC9C5LgTRObdbqidwftr AA8FMWeSNYstD70Vq0tyG ggDo5gZIAiYTZ3AROvdXK nH3PuuP9zVlOf ZAXrMACoC9JwaKFsRWreM 990SElkWjP7FRJiipXsO1 HjNSRkcLpwEjS6c9G0Uj2 OWOXzDE72ZXE7 hZG4SP93ZO89G2SqKhhqz GFibGU+PHRhYmxlIHdpZH RoPScxMDAlJyBzdHlsZT0 mTe8mURDvKVCl vYdwvPIuUiKsm9fjNLMcG OqeVT3zwAddO6CxzIL1YY Yts7v0Ky48C60dC4KosIQ +GQZbvCZ6hNL8 sE6aNfMjCcO0BTslQ680C uDcrQCiJutvc6rfg4ivjE g3RdN8MZXypuBggRdwQPR 5u9YgUc33Y88e IHdpZHRoPSIxNSUiIHZhb Tkhjw3xzF5yWj9+PGNvbC W8bBW8eO7fMlNnHnZ0AJl pN592IwYzfTDv Pdddw8nry0okcEl6SyRoC FUtujCmcCpoTVV0y8YgTi 60N3KzuMviq6NgUwq1vf1 8fBGpc7I7wYE4 G3MwYAErgbgmvVMduRhyI J3wKUSvuhmjTCYouB8aEK NuM3y4SjLoHxA5IMkcN7S gepA1BRYgiEFx LAdfGBZ5F12dz4Q8PRTxV CYaBET4qOI2iE0alHqvye ogbGVmdDsgdmVydGljYWw uEKzfH430FSVw bTtxYEMffU1zTFVidETzu NmsZX1zAEHxpvvsPshFHs PZUgudCJ9PPRLRQGuFZiP USDwvdGQ+PHRk KPN6tEjlRCfzVNHvaP9tK DNvM9n7ZeOaYuT4AFluY5 QbATThwunzOu90eJ4jWhR dPgG3OEhkG9Sr krS6UWMivNGzQWkpKUB2B 11om9G9CLUgDNZqBBM8qH R0cK6kwWdslxkaoUJeaVp gdmVydGljYWwt CSfkG387EDZdfFgrJxUuO aJuWdR7Ojp0L7EiZoz1GP CkkMmbCX2tvSWhAIvoNc9 lhPvjoMkmDM7r QNWtfamsQXTckL7cJEVcv WDdqFwzFJ8zYBZzystig9 16OkBbJFI9RBCqdHTtM1U unK9sPzGgWNFl MRHrZ9UioHYaUTshV673I OwnPeS9UELxvdGiM5SsWG ZluLlyGtD7a3H9Qv68ErK ZZWFyczwvdGQ+ OTGfVKH6fOfbAPpcASClk X0uPFCoV2j1NrBvApD3QZ vbM6XjNHOhjdzdVg29iW9 iJbAkQqB3VFjr H2IdgaA8BGRduOOjUWnkN LM4D95bw7Z2YBTxWHHaKS L3xJU7tW6jaCkwvozcxOA mdDsgdmVydGlj OCnkYIftK883KLUliDyxH kZFTUFMRTwvdGQ+PHRkIH D9ySptZUcnTKJetL0nIQT mI1i9GyQuLyZ4 VFpvI9FnHCLlidivDl91u T4yJuWmNcW4NBicX0Enyk Y4AGGsoYKaAAggZLV5Y30 kt5A4WXOwFJJt MCR5fXY9hX0jaCyrazxnx GVmdDsgdmVydGljYWwtYW psU827YJSpnSvyMjHpSAY cQK3gsGeanCS+ SG45oj60P5RtVnjoUnm0R UUnPZI9rRG9uQ0yYBIsNK odv5D7kPP9E4JjzlQgfn6 tz5doTQJrLBho P91olBUdj2Y7RFYxpBD6C CYgaFeiLgBysF66Wdt+PG CysHxex7QfQgtfg8xpe0g gdAn9PoFjDYId pxYxzSisUWD3g1OiDn71V 29sIHdpZHRoPSIzMCUiIH ZhvYfdng3nyA8fTy3+PGN rsWZ5qPH0bE4a RxWzGqQ6AJxxB274WaTal ZTnKkkqz9fvi4vorRk8Bd RcUCEmpyJzwHsfULZ5l3I lMd21Z5ZpqPaq y7SnOmu4nc82rXNmd8L2v UL7N1JuIZIbvkjdoBPuyZ rvIC9wOLCtyxjoCKGttW2 aMQWlV5r5YwUm NfW8TSewT0ScwtM6IUQfx WJvDLKspYNQiN4kmoalx9 sklorvGeCjGRLfWZh2RYw 0LWFsaWduOiBs CQQ8PiI8NFE4fYXdhD5ui HrwhzfroW5sGsr+UGh5c2 djmMIbKJ7zjFI4JP42RF0 3eVAuk0O6qEP1 G3WzCOXzygfukbaroMY4E KIvEHZtaG96We8lzItdSd 6rPPWaOWS0ANTkwDPrR5O iyP9nCaEgTWNq TDEeQ6YmhDLtYDzkR760V BxkNgL6JDBxdiLjE0OwQM ZjuKqvAuN7r6N5Cv2KQD6 2EI24AF98hBEr n9B7lFD0O5DwEPZuojlpd ubeqGB3ZOSpNJIaeM25Fw 9pzNqwSs8lGYWiHXI1PHX kySOzP5IizY8s YrIcCBKfZYRdU0HquMUaS NnzJ536TCcoOuW5CNDohb MuT1ZxOVOqtHifQjA3i5X 4Ox7KLk12VM26 UD42vJOlw3F3cZO9T4JpV PZbywlxlumoeOB8OGAfET MtbO26Ar4sdCgpKj1lSJY rMRZ9RYGbkKCi T4VjkE2tRxBcIGUuTERkZ 7GmvEUaHCwbQ958SHrfNg H3BQZjtxLjK8MaXQNtsPo pPlN4r4U6Id8P SAywsyo0X7UpJuiguHA+P M54PZOaET41zTNclYDkm6 eeiQa4KeOgETLjTBP7hOk xDBsng4OxCGRk Y29 (more content not included)... [facility] Coding Summary HTMLBase 64 SvfoweecCJr1gNr+PGhlY WQ+VX3SZQQzY06awJQhqU 1OM8wIPM1ODIDBXKKTPY6 GYF5jiET9OObdD5OxtgHc BkzzbPJhJF46TCw6AKI6n MawBCcsiB9gpULiL9v0Mj BdMS20wW56ETtqLOCeJjA 3LjZpbjsgbWFy P3kaKqReyJOoDrq+PHRhY mxlIHdpZHRoPScxMDAlJy VigMgtXP1nAx3lMEXfRSV vbGxhcHNlOiBj l0wjQSYjDIkjJW9vtHcsZ 3TacJN2YQVmr1h4Bn12cO I+DMDwIUI0rTjtFVlql97 0AqCla6vsXOI0 rSMtRZdnNTW8D19al8E4T IQpHOJwRWU7fPL5uB3gyA gilwrhL7YwdTDsNiH1MZI 8wCQrbH4puPuk njhfpX6bFjh+J38KGR4PU JDCKX3RWos8M4YqAtlxgH I+OG98EAWoHY28fLPkuLX nr1fmvEp0ZwWr TBJfZLX0zTfrDRynk2UmV OQpJ09lySLxl7M7FESwaC rynBOuKmIayPI8hX4nUUc gymbpp2lcwdvn Ngvog9rcdd13qW57D09xZ GzrYIXiGDG5ZDPjXXDsyB ejma0oxS7lNt5+LQuwj3l im9vfbUv7HrPv NLCywdPdsEcmACF7x5BqD n00L3WggLtlh3RpAmd3tb 51lREzr4L5zLS5DUpsWIA ptY4wIGuePsY2 WWRxWyXjcT81hICsBBjvR b9nfNqipPxuDL4lMIXlht afKKWxfF3fLYCruMHdmBb pID4zOEScoaaa c275OiEjMCS0UECgrPTeM 6PcsW1fFuJhVRFcPHGaH3 KozJSdMAvrY914EDihWiM 6LVPvhvEyP2Bi QXKbnAprGqU5o4R0Sg9Nc 4ReynsrOZA0GWhjLAC6Ht M0OlDiAlO4L8CtXcm0BJQ paBopXK9tK6Qi PUQxrkbjepbrkWC4KJCmO FJmmX50yAKhHWyeYx7cy5 H3c884CNVqKOBoxN51An3 udDogMTBwdCBU wU8rdouaa0zcojjoBzJpH RMcATm3WHr8ZDNnoNwjYk FwSHB3NoG4YDL4rSNtmC5 cwXclgnvphV2c Oyc+F54qfX2yRUO7WUM1k buaYKSrfaBgNI28ZG82R2 RyPjwvdGFibGU+PGRpdiB cdZjcAQ5tRuCq i8emc5HpBXmaU8EcPXCuN PxeOhb6FQUuZPF0pCD7xK 4eOXXiSUxgl0T1rXF6Q1V mhyFmin8no8mw HZRaKEfrP11ffWUbw0M4E KNsvTJ3YJUojFwgFbTcwP 93Oyc+OINhbXpcb0NiSha xq7cpz7lcbKe9 FiCfJANvrfCohXioCEU7q 8EuKr31L62rXIlkNLVaUD SsJKQpDINomRcber5jnL5 wIi8+PGNvbCB3 wFK6iI9oOZFpHiZ8KWonD 907CfMexTSbTfsec4vjv5 lsgUu8WvXeYTWvhlWppHw fWJR7y4FhVj65 V10eTIgaHYMlNDQnMNLfM GHcyRngrr7ujP8mDm4+PC 1dd9qxuz13yR73nZP+PHR zKHR2aUeqYIza LVZvcO1qUQbwPeQ0AKXlV mVsrF80oZKeDNylQs5fgX sbqZlzZH1mPVThoepki54 0VrMag8ieSZLz bFZcIQtuQYP1E63mg8J7Y KHnEONbLHL8sNN9pD8oiM lnbjogbGVmdDsgdmVydGl mBGfgGDfaL482 IHRvcDsnPlBhdGllbnQgT lYcXJt1S0VvVcz3DAKezF svIQ8hfGHnTDamUp1meXl cpCthVG3sPNDi brbfq166XgCpl9veNDYau HVfJKjfIZC9D08gl5D6OF UwYXAzCJT8mCN1yB7hcTy nbjogbGVmdDsg vqBokVivIDyzMFnkF974H HRvcDsnPkJpcnRoIERhdG R3MM48KX46zURtx4G8yGM 8X9PpOQWfktwg xoffxTZ8WRMiFNZiaY14D v9knJnqHp1sRLXxBNS4PV HroXChF7XwjW7lHuIwEIA bMTCdZ8LhaPWd EHtvL800FYtsObL3TSTvb yQiB6OrUISubMavAtX3l6 U7Ug5TE0P4KY77RZ68mVE yk2U5tAI0X6Vl MYCqezvwnvtwoRI1MEDbL TAokC63Mg5jrFonLk6eCM KvTKH6AVZqyCOcZ4VmoH5 yOiAjMDAwMDAw G2SbqTUjLCnnW956NUuoX wU3ATFwiwXlU4EyOPWmxF otMaP9f8D8Sr3EMBd3HC1 1CS80tOHht5K1 mBI9A0DfMSUzryynshehm ZB0JHZlDLLflB85Fs6vbC dyFu0vFHGaPFF5EYXrfGQ xR4QnuH4qYtHg WZCdGVLvO8WmqXHhEFpoK 621ZKggAkS6MMUsceHaT1 FcHFVvyDkpLhO0o3E2Jn8 UXYVoNU49VTA2 mIC0OH68CU02Z9QuObrvi GFibGU+PHRhYmxlIHdpZH RoPScxMDAlJyBzdHlsZT0 gJv9hNKVfTEGn cMzuaWEzVlGzw7kgTAHsM XdiOX3xzOohZ5HqiMQ7JW Ubn2v8Gj78K02fD8HztKO +OHXeoYL2mAO1 nS8dVpPsMtS0IKqhR493K fTrtAEpAlbmw7eie0zrfH m7HcU5OJCbgcFwmOyqWIP 1y0VoGj81L15b IHdpZHRoPSIxNSUiIHZhb Hgtqo1jvU4mEk0+PGNvbC A9eON3vZ6mGeJfGtZ8THi kJ603KxQghMVg Zdjmv4fkz2jytXk6QrNbI FOzgeXblCddWGQ4o4WhDd 43W7UykJovh4OaVdv6wq0 9fMCgu1J9lEK0 P4UrJZTglsxjfJBpcWltZ E1vHLPhniieFVBggT4zUL RtH3v4BqEjJdJ2TUzhU7R ovyI4DUDbjOQq PYvmQFM8P63ey3N4AZVmP XVsPZU4dBU4yN5isRmbya ogbGVmdDsgdmVydGljYWw aJWxbI656AHKs sIzeDMQkpR6hZFWooRHpb MrxVU2qQHMrcbnpGghITc GCLzotLB2DWYHNFXxPGqA USDwvdGQ+PHRk DQB6cNzxGCflSCSkcG7nH ZHmP0u5PmWuJwL3JWydS0 EvCYFbmwjaRy82kG6hYjU cXpI6NDftN0Mj niH7AJVyzYFlGZpgZKZ0M 76xl6E6UQAzSBSpZFR3kP Q2sC3knHcnleokmDVftVa gdmVydGljYWwt SXexV560WIWstAitHuUpT bEnOiE6Mzl6Q0SqWje3RX UhqHsvCH5wyUStTVcvGr0 blFfiyGbbSB9h TOTrqtswWUCfaS3tXXIjc YBxwCzzMT0lBSNebafmm8 56OfWgQCZ6PBTnuOCeK4U msF0oXhQbDYIf RTAcS3XriXIrBAxjK345H AhbQrL8GYCnzlKnS3ZgPH RwcGcpGhE1g1X9Gm25RdI ZZWFyczwvdGQ+ LIYuIIB7uCjtWCtrWMDsn I3hGOWsQ8r1BkLrPaU2YU brT5GfPWRmidfuOr48sY3 dDaFiNqD1YQnh C4OodtH1CJBovNOlJIvqM YP8Q87oz1M4YAOgARIlMX B4vPO3pH5okPgdjwgxwHU mdDsgdmVydGlj YMmkPJybU078INZszHaeL kZFTUFMRTwvdGQ+PHRkIH G0kQucZXunJEMmtZ6xJHU gS6g2HiEdHbA4 CBxvW0ZdNGSxblvxWv65y J8oWqPfRqA2ZZmtG2Evor S5BPNckYYoKVfbGYA2K57 cc0L0QPPaRHWw SBL8vKO2oB7elYxavdnyu GVmdDsgdmVydGljYWwtYW efG546AVJjlLnyJzHjHQT aKM4koPhfuQK+ BZ45pf42D3SjRghmCmt4O MQwUDP5aOE5xI8vTXVoWH tqx0D8sNV9P9MvbhMvvp8 rr8azPLOjULxo Y82mtETct2H4FLPwcWF8Z EJtoLkiToHhhT66Ehs+PG SivJlap4LzSccfy9onm8y qgGq3YkRqAWZi vvCurGzyVNE1y4TyWm24Q 29sIHdpZHRoPSIzMCUiIH VxrIosbd6blQ9eWf9+PGN jkXP7jRS0lA5t ErCzMzC0LOagG983XnWvk NIrTtobh3gsv7pyeAi3Ug VgHDIwmqWdjBmnCES1z0W dFl78L2YxkUab g8NeUbc4bw58oVZhx9M3l FR6K7QiOQWdweztgZWebS xhCL8jKJFtwssyAQEkyV2 iMVWjV1h1WjTb QhJ7IKxhV7QytvQ2GVVfy WWiFCXrzWDGiK3lhnmfn8 lzilboSyIoKSPfWTt3WZh 0LWFsaWduOiBs ENV0JjH8LUG6oBRouL2zw KevvqlogM3vPnh+UGh5c2 cduMMlWK1wxPN0XF71UH5 8rWSwx9T4xNC3 I1QcKNBwlgyfykgbmUN0S XLsSRZbaC89Ll5koEkqXa 2wMXElOQS8DQPfjLWjL3O btQ6zEyPuANBq UTQxI4TbiCUaGHctG029E ZstTgB7AZVumkEyU6DaEF EdjMjnRxQ0l9A1Ez9BAE5 5UC51UB97bFUh g2U6aYZ8J7NiUBPtlhbjd hlwbPP3WDCzNONuhK76Ra 7ejEcxBd8bAMYmRPP9FBE ysFEcE0BtbS2r MiNvFVFmZXIdC4HauTThL IdsU029GFzgIvE6EESvji PwE1MeTRGbeLtvVmT5u8C 5Kt1UQl68TM96 FV99jCEdy4I9xJV2S3TvC EAaerwncpkamVN0QIFkNJ FvjA44Jk6zjDpfLg4fOQR fFRP7SQThrZOq R3SqkE9jRcBwICIqXRRhH 6LbuLHvNBxqW543BFriUa K6QLJcgvEwT6NbOUHfkXw yRqA1g9A9Vd1E QKoiuya2N6YhAycnuFR+P H60QXGpVT78rBKasZDol0 exaEn5EkQeTKEiMQH6cLn uTQknt4AeBQUc Y29 (more content not included)... Normal [facility] .Auto Diff 10-09-2020 Auto Stephenson % 9 % Normal 06-29 [facility] Comment on above: Performed By: #### 7 486201, 61157717, 8713367, [id number], 7593486 ####[facility] (DEFAULT)[address] [place] [address] 11877 Baso Abs# 0.0 x10 Normal 0.0-0.2 [facility] Comment on above: Performed By: #### 7 428587, 97132103, 9223944, [id number], 3938607 ####[facility] (DEFAULT)[address] [place] [address] 68290 Basophils/100 WBC (Bld) 0.2 % Normal 0.2-2.0 [facility] [place] Comment on above: Performed By: #### 7 218984, 29202210, 6300592, [id number], 5242444 ####[facility] (DEFAULT)[address] [place] [address] 10716 Eos Abs# 0.2 x10 Normal 0.0-0.4 [facility] Comment on above: Performed By: #### 7 111897, 75590432, 2606909, 3681930757, 3319414 ####[facility] (DEFAULT)[address] [place] [address] 56584 Eosinophils/100 WBC (Bld) 1.8 % Normal 0.9-4.0 [facility] Comment on above: Performed By: #### 7 274850, 54520701, 6329842, 5049197280, 8945007 ####[facility] (DEFAULT)[address] [place] [address] 36988 Lymph Abs# 2.6 x10 Normal 1.3-2.9 [facility] Comment on above: Performed By: #### 7 501973, 89696168, 3952550, 5414775520, 8532152 ####[facility] (DEFAULT)[address] [place] [address] 78214 Lymphocytes/100 WBC (Bld) 28 % Normal 14-48 [facility] Comment on above: Performed By: #### 7 854400, 40413973, 2552285, 1390637303, 4778589 ####[facility] (DEFAULT)[address] [place] [address] Stephenson Abs# 0.9 x10 High 0.0-0.8 [facility] Comment on above: Performed By: #### 7 951983, 21539885, 1682484, 3323728733, 6283492 ####[facility] (DEFAULT)[address] [place] [address] Neut Abs# 5.7 x10 Normal 1.5-9.2 [facility] Comment on above: Performed By: #### 7 418554, 33791210, 8796281, 9465031449, 1993046 ####[facility] (DEFAULT)[address] [place] [address] Neutrophils/100 WBC (Bld) 61 % Normal 44-88 [facility] Comment on above: Performed By: #### 7 777385, 14534213, 6079010, 7156831645, 9212985 ####[facility] (DEFAULT)[address] [place] [address] Amylaseon 10-09-2020 Amylase [Catalytic activity/Vol] 42.0 U/L Normal 28.0-100.0 [facility] Comment on above: Performed By: #### 7 307058, 92733818, 6159741, 2865391611, 7853901 ####[facility] (DEFAULT)[address] [place] [address] CBC w/ Auto Diffon Erythrocyte distribution width (RBC) [Ratio] 13.1 % Normal 11.5-15.0 [facility] Comment on above: Performed By: #### 7 486817, 61450186, 4521638, 2731623863, 6170161 ####[facility] (DEFAULT)[address] [place] [address] Hematocrit (Bld) [Volume fraction] 39.5 % Normal 33.7-40.4 [facility] Comment on above: Performed By: #### 7 205150, 99431236, 9399346, 9926135188, 5387813 ####[facility] (DEFAULT)[address] [place] [address] Hemoglobin (Bld) [Mass/Vol] 13.1 g/dL Normal 11.3-15.9 [facility] Comment on above: Performed By: #### 7 315381, 82838324, 7445098, 9485327814, 7003752 ####[facility] (DEFAULT)[address] [place] [address] Instr WBC 9.4 x10 Invalid Interpretation Code [facility] Comment on above: Performed By: #### 7 367336, 31787791, 9842076, 5882989507, 3301231 ####[facility] (DEFAULT)[address] [place] [address] 24083 Man Diff? Auto Normal [facility] Comment on above: Performed By: #### 7 209151, 93064258, 3157495, 0709583589, 6755850 ####[facility] (DEFAULT)[address] [place] [address] 96752 MCH (RBC) [Entitic mass] 30 pg Normal 24-34 [facility] Comment on above: Performed By: #### 7 327585, 14505147, 3163501, 9721929062, 9218556 ####[facility] (DEFAULT)[address] [place] [address] 08198 MCHC (RBC) [Mass/Vol] 33 g/dL Normal 26-37 [facility] Comment on above: Performed By: #### 7 226397, 38617386, 5072001, 9631764969, 7670200 ####[facility] (DEFAULT)[address] [place] [address] 74224 MCV (RBC) [Entitic vol] 91 fL Normal 81-100 [facility] [place] Comment on above: Performed By: #### 7 416824, 22303224, 9233505, 7693210160, 5047547 ####[facility] (DEFAULT)[address] [place] [address] 84663 Platelet 298 x10 Normal 138-427 [facility] Comment on above: Performed By: #### 7 602137, 41490543, 0879805, 2179742763, 8440206 ####[facility] (DEFAULT)[address] [place] [address] 18152 Platelet mean volume (Bld) [Entitic vol] 9.1 fL Normal 6.3-10.2 [facility] Comment on above: Performed By: #### 7 500109, 78448604, 6998187, 6352314295, 7790378 ####[facility] (DEFAULT)[address] [place] [address] RBC 4.34 x10 Normal 3.70-5.30 [facility] Comment on above: Performed By: #### 7 970293, 23382873, 7671827, 4348574149, 2153680 ####[facility] (DEFAULT)[address] [place] [address] WBC 9.4 x10 Normal 3.5-10.5 [facility] Comment on above: Performed By: #### 7 719552, 23017372, 5114546, 8208826397, 7444962 ####[facility] (DEFAULT)[address] [place] [address] Standardon 10-09-2020 eGFR Non AA >60 Invalid Interpretation Code [facility] Comment on above: Performed By: #### 7 578181, 80174600, 4310704, 1863372317, 0204201 ####[facility] (DEFAULT)[address] [place] [address] eGFR AA >60 Invalid Interpretation Code [facility] Comment on above: Result Comment: [employer] chris Kidney disease could be indicated at eGFRs of less than 60 ml/min/1.73m2. Kidney Failure is indicated at less than 15 ml/min/1.73m2 Performed By: #### 7 934192, 95161097, 2723990, 6429602638, 7395660 ####[facility] (DEFAULT)[address] [place] [address] Albumin [Mass/Vol] 3.4 g/dL Low 3.5-5.0 [facility] Comment on above: Performed By: #### 7 209092, 26617559, 7401800, 5574439707, 8664433 ####[facility] (DEFAULT)[address] [place] [address] Albumin/Globulin [Mass ratio] 0.9 {ratio} Low 1.4-2.6 [facility] Comment on above: Performed By: #### 7 673324, 80385491, 4475028, 9836819880, 7678495 ####[facility] (DEFAULT)[address] [place] [address] 38784 Alk Phos 62 IU/L Normal 32-91 [facility] Comment on above: Performed By: #### 7 084791, 00093232, 5585415, 3131966549, 6620928 ####[facility] (DEFAULT)[address] [place] [address] 25888 ALT [Catalytic activity/Vol] 25.0 U/L Normal 14.0-54.0 [facility] Comment on above: Performed By: #### 7 561312, 32823675, 4370588, 4001694466, 3410453 ####[facility] (DEFAULT)[address] [place] [address] 40316 Anion gap [Moles/Vol] 14.0 mmol/L Normal 5.0-19.0 [facility] Comment on above: Performed By: #### 7 783570, 63960008, 2821671, 7062326781, 8766610 ####[facility] (DEFAULT)[address] [place] [address] 00137 AST [Catalytic activity/Vol] 15 U/L Normal 15-41 [facility] Comment on above: Performed By: #### 7 432952, 09822633, 8645001, 1793381586, 7480553 ####[facility] (DEFAULT)[address] [place] [address] 25051 Bili Total 0.5 mg/dL Normal 0.3-1.2 [facility] Comment on above: Performed By: #### 7 754144, 75320388, 3698911, 4267198424, 9219113 ####[facility] (DEFAULT)[address] [place] [address] 39879 Calcium [Mass/Vol] 9.1 mg/dL Normal 8.9-10.3 [facility] Comment on above: Performed By: #### 7 815997, 25302093, 6311681, 3680940281, 4997848 ####[facility] (DEFAULT)[address] [place] [address] Chloride [Moles/Vol] 96 mmol/L Low 101-111 [facility] Comment on above: Performed By: #### 7 939458, 47392355, 0547243, 2922513288, 5933760 ####[facility] (DEFAULT)[address] [place] [address] 36022 CO2 [Moles/Vol] 28 mmol/L Normal 21-32 [facility] Comment on above: Performed By: #### 7 114780, 53619907, 2299113, 6522650797, 7217563 ####[facility] (DEFAULT)[address] [place] [address] 62496 Creatinine [Mass/Vol] 0.98 mg/dL Normal 0.60-1.30 [facility] Comment on above: Performed By: #### 7 170632, 02701328, 7042975, 1499939714, 5773565 ####[facility] (DEFAULT)[address] [place] [address] 03490 Globulin (S) [Mass/Vol] 3.6 g/dL Normal 1.5-4.3 [facility] [place] Comment on above: Performed By: #### 7 569799, 21579659, 1226074, 2777499839, 4443195 ####[facility] (DEFAULT)[address] [place] [address] 49043 Glucose [Mass/Vol] 141.0 mg/dL High 74.0-118.0 [facility] Comment on above: Performed By: #### 7 798474, 19456535, 4545076, 9154152482, 2573844 ####[facility] (DEFAULT)[address] [place] [address] 11027 Osmolality 271 mOsm/L Invalid Interpretation Code [facility] Comment on above: Performed By: #### 7 346717, 24790051, 8524650, 2191206800, 2806479 ####[facility] (DEFAULT)[address] [place] [address] 21165 Potassium [Moles/Vol] 4.2 mmol/L Normal 3.6-5.1 [facility] Comment on above: Performed By: #### 7 923834, 22215269, 5691490, 5405933584, 1212522 ####[facility] (DEFAULT)[address] [place] [address] 59322 Protein [Mass/Vol] 7.0 g/dL Normal 6.5-8.1 [facility] Comment on above: Performed By: #### 7 373215, 00585463, 5494034, 4945769333, 2666380 ####[facility] (DEFAULT)[address] [place] [address] 92752 Sodium [Moles/Vol] 134.0 mmol/L Low 136.0-144.0 [facility] Comment on above: Performed By: #### 7 730868, 41565543, 9734694, 5433096355, 7237879 ####[facility] (DEFAULT)[address] [place] [address] 14862 [place] nitrogen [Mass/Vol] 15 mg/dL Normal 8-26 [facility] Comment on above: Performed By: #### 7 [id number], [id number], [id number], [id number], [id number] ####[facility] (DEFAULT)[address] [place] [address] Urea nitrogen/Creatinine [Mass ratio] 15.0 mg/mg Normal 4.6-16.2 [facility] Comment on above: Performed By: #### 7 [id number], [id number], [id number], [id number], [id number] ####[facility] (DEFAULT)[address] [place] [address] ED Clinical Summaryon 2020 ED Clinical Summary [facility] - Emergency Department [address] [place] [address] ED Clinical Summary PERSON INFORMATION Name: NICKI OVIEDO Age: 45 Years Sex: FEMALE : 1975 MRN: Acct#: Visit Reason: Vomiting; ABDOMINAL PAIN Arrival: 10/09/2020 00:47:50 Discharge: 10/09/2020 03:47:00 LOS: 000 03:00 Check In: 10/09/2020 00:47:50 Checkout:10/09/2020 03:47:00 Address: [address] [place] [address] PCP: Provider, Unlisted PROVIDER INFORMATION Provider Role Assigned Unassigned Mendoza Robertson MD ED Provider 10/09/2020 00:50:03 Cherry RN, Ayesha ED Nurse 10/09/2020 00:50:41 VITALS INFORMATION Vital [...] Normal pharynx pink and moist. NECK: -Supple ([id number]). CARD: -Rate and rhythm: Regular -Murmurs: No [...] weekend Impression and Plan Diagnosis Abdominal pain (GXS85-QS R10.9, Discharge, Medical) Exacerbation of Crohn's disease (HFV76-AK K50.90, Discharge, Medical) Plan Condition: Improved. Disposition: Discharged: Time 10/09/2020 02:05:00, to home. (more content not included)... Normal [facility] ED Note - Physicianon 2020 ED [...] Normal pharynx pink and moist. NECK: -Supple ([id number]). CARD: -Rate and rhythm: Regular -Murmurs: No [...] weekend Impression and Plan Diagnosis Abdominal pain (KQT89-WZ R10.9, Discharge, Medical) Exacerbation of Crohn's disease (OJB07-KR K50.90, Discharge, Medical) Plan Condition: Improved. Disposition: [...] on: 10/09/2020 02:17 EDT] Mendoza Robertson MD [facility] ED Note-Nursingon 10-09-2020 ED Note-Nursing Patient [...] movements. Patient ambulated to ER room 8. [facility] ED Patient Summaryon 021 ED Patient Summary [facility] - Emergency Department [address] [place], [place] [id number] PATIENT DISCHARGE INSTRUCTIONS Patient Information Name: NICKI OVIEDO Age: 45 Years Date of : 1975 Reason For Visit: Vomiting; ABDOMINAL PAIN Arrival Time: 10/09/2020 00:47:50 Primary Care Physician: Provider, Unlisted Attending Physician: Mendoza Robertson MD Comment: Visit Diagnosis: Diagnoses This Visit Abdominal pain (R10.9) Exacerbation of Crohn's disease (K50.90) Vomiting ([id number]) Prescription Information: If you have been given a prescription for narcotics, seek immediate medical attention if you have any difficulty breathing or any sudden status changes such as confusion and sleepiness. If you or anyone you know is experiencing suicidal thoughts, mental health, alcohol and/or drug addiction problems; contact the [facility] 08/01 Crisis Hotline -Text 2PYQR he 795387. If you received any narcotics, sedation, or [...] treatment you received today in the [facility] were for an urgent problem and are not intended as complete care. It is important for you to follow up with a doctor, nurse practitioner, or physician?s commercial escrow assistant for ongoing care. If your symptoms [...] so we can reach you if necessary. [facility] Emergency Department has provided you with a complete list of medications post discharge. 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 Normal [facility] Lipaseon 10-09-2020 Lipase Level 29.0 IU/L Normal 22.0-51.0 [facility] Comment on above: Performed By: #### 7 [id number], [id number], [id number], [id number], [id number] ####[facility] (DEFAULT)[address] [place] [address] CBC W/DIFFon 09-30-2020 ABS IMM GRANS 0.0 10*3/uL Normal 0.0-0.2 [facility] Comment on above: Performed By: #### 5 0103 #### [facility] [address] [place] [address], [facility] ABS NEUTROPHILS 4.0 10*3/uL Normal 1.6-7.6 [facility] Comment on above: Performed By: #### 5 0103 #### [facility] [address] [place] [address], [facility] Basophils (Bld) [#/Vol] 0.0 10*3/uL Normal 0.0-0.2 [facility] Comment on above: Performed By: #### 5 0103 #### [facility] [address] [place] [address], [facility] Basophils/100 WBC (Bld) 0.6 % Normal 0.0-1.0 T [facility] Comment on above: Performed By: #### 5 0103 #### [facility] [address] [place] [address], [facility] Eosinophils (Bld) [#/Vol] 0.1 10*3/uL Normal 0.0-0.5 [facility] Comment on above: Performed By: #### 5 0103 #### [facility] [address] [place] [address], [facility] Eosinophils/100 WBC (Bld) 1.5 % Normal 0.0-6.0 [facility] Comment on above: Performed By: #### 5 0103 #### [facility] [address] [place] [id number], [facility] Erythrocyte distribution width (RBC) [Ratio] 12.6 % Normal 11.5-15.0 [facility] Comment on above: Performed By: #### 5 0103 #### [facility] [address] [place] [id number], [facility] Hematocrit (Bld) [Volume fraction] 36.4 % Normal 36.0-45.0 [facility] Comment on above: Performed By: #### 5 3 #### [facility] [address] [facility] [place] [address], [facility] Hemoglobin (Bld) [Mass/Vol] 12.2 g/dL Normal 12.0-15.0 [facility] Comment on above: Performed By: #### 3 #### [facility] [address] [facility] [place] [address], [facility] IMMATURE GRANS 0.3 % Normal 0.0-1.0 [facility] Comment on above: Performed By: #### 3 #### [facility] [address] Lymphocytes (Bld) [#/Vol] 2.3 10*3/uL Normal 1.2-4.0 [facility] Comment on above: Performed By: #### 102 #### [facility] [address] Lymphocytes/100 WBC (Bld) 32.4 % Normal 20.0-45.0 [facility] Comment on above: Performed By: #### 3 #### [facility] [address] MCH (RBC) [Entitic mass] 30.2 pg Normal 27.0-33.0 [facility] Comment on above: Performed By: #### 3 #### [facility] [address] [facility]. [address] MCHC (RBC) [Mass/Vol] 33.5 g/dL Normal 32.0-35.0 [facility] Comment on above: Performed By: #### 3 #### [facility] [address] [place] [address], [facility] MCV (RBC) [Entitic vol] 90.1 fL Normal 82.0-98.0 [facility] Comment on above: Performed By: #### 3 #### [facility] [address] [place] [address], [facility] Monocytes (Bld) [#/Vol] 0.7 10*3/uL Normal 0.1-1.0 [facility] Comment on above: Performed By: #### 3 #### [facility] [address] [place] [address], [facility] MONOS 9.8 % Normal 5.0-12.0 [facility] Comment on above: Performed By: #### 102 #### [facility] [address] [facility] [place] [address], [facility] Neutrophils/100 WBC (Bld) 55.4 % Normal 40.0-72.0 [facility] Comment on above: Performed By: #### 102 #### [facility] [address] [facility] [place] [address], [facility] Nucleated RBC/100 WBC (Bld) [Ratio] 0 % Normal 0-0 [facility] Comment on above: Performed By: #### 102 #### [facility] [address] [facility] [place] [address], [facility] PLAT CNT 263 10*3/uL Normal 150-400 [facility] Comment on above: Performed By: #### 102 #### [facility] [address] [facility] [place] [id number], [facility] RBC (Bld) [#/Vol] 4.04 10*6/uL Normal 3.80-5.00 [facility] Comment on above: Performed By: #### 102 #### [facility] [address] [facility] [place] [id number], [facility] WBC (Bld) [#/Vol] 7.14 10*3/uL Normal 4.00-10.60 [facility] Comment on above: Performed By: #### 102 #### [facility] [address] [place] [address], [facility] COMP METABOLIC PANELon 09-30 Albumin [Mass/Vol] 3.8 g/dL Normal 3.5-5.7 [facility] Comment on above: Performed By: #### 0 0121, [id number] #### [facility] [address] [place] [address], [place] ALKALINE PHOSPH 49 IU/L Normal 34-104 [facility] Comment on above: Performed By: #### 0 0121, [id number] #### [facility] [address] [place] [address], [place] ALT [Catalytic activity/Vol] 18 U/L Normal 7-52 [facility] Comment on above: Performed By: #### 0 0121, [id number] #### [facility] [address] [place] [address], [place] AST [Catalytic activity/Vol] 13 U/L Normal 13-39 [facility] Comment on above: Performed By: #### 0 0121, [id number] #### [facility] [address] [place] [address], [place] Bilirubin [Mass/Vol] 0.3 mg/dL Normal 0.3-1.0 [facility] Comment on above: Performed By: #### 0 0121, 14592 #### [facility] [address] [place] [address], [place] Calcium [Mass/Vol] 8.6 mg/dL Normal 8.6-10.3 [facility] Comment on above: Performed By: #### 0 0121, 63343 #### [facility] [address] [place] [address], [place] Chloride [Moles/Vol] 104 mmol/L Normal 98-107 [facility] Comment on above: Performed By: #### 0 0121, 56046 #### [facility] [address] [place] [address], [place] CO2 [Moles/Vol] 27 mmol/L Normal 21-31 [facility] Comment on above: Performed By: #### 0 0121, 65382 #### [facility] [address] [place] [address], [place] Creatinine [Mass/Vol] 0.70 mg/dL Normal 0.60-1.20 [facility] Comment on above: Performed By: #### 0 0121, 18198 #### [facility] [address] [place] [address], [place] GFR/1.73 sq M.predicted among blacks MDRD (S/P/Bld) [Vol rate/Area] mL/min/{1.73_m2} Normal >60 [facility] Comment on above: Performed By: #### 0 0121, 92189 #### [facility] [address] [place] [address], [place] GFR/1.73 sq M.predicted among non-blacks MDRD (S/P/Bld) [Vol rate/Area] mL/min/{1.73_m2} Normal >60 [facility] Comment on above: Performed By: #### 0 0121, 06649 #### [facility] [address] [place] [address], [place] Glucose [Mass/Vol] 131 mg/dL High 70-100 [facility] Comment on above: Performed By: #### 0 0121, 31679 #### [facility] [address] [place] [address], [place] Potassium [Moles/Vol] 4.0 mmol/L Normal 3.5-5.1 [facility] Comment on above: Performed By: #### 0 0121, 74967 #### [facility] [address] [place] [address], [place] Protein [Mass/Vol] 6.5 g/dL Normal 6.0-8.3 [facility] Comment on above: Performed By: #### 0 0121, 48995 #### [facility] [address] [place] [address], [facility] Sodium [Moles/Vol] 138 mmol/L Normal 136-145 [facility] Comment on above: Performed By: #### 0 0121, 26906 #### [facility] [address] [place] [address], [facility] Urea nitrogen [Mass/Vol] 19 mg/dL Normal 7-25 [facility] Comment on above: Performed By: #### 0 0121, 47556 #### [facility] [address] [place] [address], [facility] LACTATE BLOODon 09-30-2020 Lactate [Moles/Vol] 1.1 mmol/L Normal 0.5-2.2 [facility] Comment on above: Performed By: #### 5 0103 #### [facility] [address] [place] [address], [facility] LIPASE BLOODon 09-30-2020 LIPASE 55 Units/L Normal 11-82 [facility] Comment on above: Performed By: #### 0 0121, 65576 #### [facility] [address] [facility] [place] [address], [facility] POC URINE PREGNANCYon 2020 Beta HCG ( test) Ql (U) Negative Normal NEGATIVE [facility] Comment on above: Performed By: #### 5 0103 #### [facility] [address] [place] [address], [facility] BASIC METABOLIC PANELon 10- Calcium [Mass/Vol] 8.9 mg/dL Normal 8.6-10.3 [facility] Comment on above: Performed By: #### 5 0103 #### [facility] [address] [place] [address], [facility] Chloride [Moles/Vol] 106 mmol/L Normal 98-107 [facility] Comment on above: Performed By: #### 5 0103 #### [facility] [address] [place] [address], [place] CO2 [Moles/Vol] 26 mmol/L Normal 21-31 [facility] Comment on above: Performed By: #### 5 0103 #### [facility] [address] [place] [address], [place] Creatinine [Mass/Vol] 0.81 mg/dL Normal 0.60-1.20 [facility] Comment on above: Performed By: #### 5 0103 #### [facility] [address] [place] [address], [place] GFR/1.73 sq M.predicted among blacks MDRD (S/P/Bld) [Vol rate/Area] mL/min/{1.73_m2} Normal >60 [facility] Comment on above: Performed By: #### 5 0103 #### [facility] [address] [place] [address], [place] GFR/1.73 sq M.predicted among non-blacks MDRD (S/P/Bld) [Vol rate/Area] mL/min/{1.73_m2} Normal >60 [facility] Comment on above: Performed By: #### 5 0103 #### [facility] [address] [place] [address], [place] Glucose [Mass/Vol] 124 mg/dL High 70-100 [facility] Comment on above: Performed By: #### 5 0103 #### [facility] [address] [place] [address], [place] Potassium [Moles/Vol] 3.9 mmol/L Normal 3.5-5.1 [facility] Comment on above: Performed By: #### 5 0103 #### [facility] [address] [place] [address], [place] Sodium [Moles/Vol] 135 mmol/L Low 136-145 [facility] Comment on above: Performed By: #### 5 0103 #### [facility] [address] Urea nitrogen [Mass/Vol] 11 mg/dL Normal 7-25 [facility] Comment on above: Performed By: #### 5 0103 #### [facility] [address] [place] [address], [facility] CBC W/DIFFon 04-03-2020 ABS IMM GRANS 0.0 10*3/uL Normal 0.0-0.2 [facility] Comment on above: Performed By: #### 5 0103 #### [facility] [address] ABS NEUTROPHILS 2.9 10*3/uL Normal 1.6-7.6 [facility] Comment on above: Performed By: #### 5 0103 #### [facility] [address] [place] [address], [facility] Basophils (Bld) [#/Vol] 0.0 10*3/uL Normal 0.0-0.2 [facility] Comment on above: Performed By: #### 5 0103 #### [facility] [address] [place] [address], [facility] Basophils/100 WBC (Bld) 0.5 % Normal 0.0-1.0 T davina [facility] Comment on above: Performed By: #### 5 0103 #### [facility] [address] [place] [address], [facility] Eosinophils (Bld) [#/Vol] 0.1 10*3/uL Normal 0.0-0.5 [facility] Comment on above: Performed By: #### 5 3 #### [facility] [address] [place] [address], [facility] Eosinophils/100 WBC (Bld) 2.1 % Normal 0.0-6.0 [facility] Comment on above: Performed By: #### 5 3 #### [facility] [address] [facility]. [address] Erythrocyte distribution width (RBC) [Ratio] 12.9 % Normal 11.5-15.0 [facility] Comment on above: Performed By: #### 3 #### [facility] [address] [facility] [place] [address], [facility] Hematocrit (Bld) [Volume fraction] 35.7 % Low 36.0-45.0 [facility] Comment on above: Performed By: #### 3 #### [facility] [address] [facility]. [address] Hemoglobin (Bld) [Mass/Vol] 11.7 g/dL Low 12.0-15.0 [facility] Comment on above: Performed By: #### 5 3 #### [facility] [address] [facility]. [address] IMMATURE GRANS 0.3 % Normal 0.0-1.0 [facility] Comment on above: Performed By: #### 5 3 #### [facility] [address] [facility] [address] Lymphocytes (Bld) [#/Vol] 2.1 10*3/uL Normal 1.2-4.0 [facility] Comment on above: Performed By: #### 3 #### [facility] [address] Lymphocytes/100 WBC (Bld) 35.9 % Normal 20.0-45.0 [facility] Comment on above: Performed By: #### 102 #### [facility] [address] MCH (RBC) [Entitic mass] 29.5 pg Normal 27.0-33.0 [facility] Comment on above: Performed By: #### 0103 #### [facility] [address] [facility] [place] [address], [facility] MCHC (RBC) [Mass/Vol] 32.8 g/dL Normal 32.0-35.0 [facility] Comment on above: Performed By: #### 3 #### [facility] [address] [facility] [place] [address], [facility] MCV (RBC) [Entitic vol] 90.2 fL Normal 82.0-98.0 T he [facility] Comment on above: Performed By: #### 102 #### [facility] [address] [facility] [place] [address], [facility] Monocytes (Bld) [#/Vol] 0.7 10*3/uL Normal 0.1-1.0 [facility] Comment on above: Performed By: #### 5 102 #### [facility] [address] [facility] [place] [address], [facility] MONOS 11.4 % Normal 5.0-12.0 [facility] Comment on above: Performed By: #### 5 102 #### [facility] [address] [facility] [place] [address], [facility] Neutrophils/100 WBC (Bld) 49.8 % Normal 40.0-72.0 [facility] Comment on above: Performed By: #### 3 #### [facility] [address] [facility] [place] [address], [facility] Nucleated RBC/100 WBC (Bld) [Ratio] 0 % Normal 0-0 [facility] Comment on above: Performed By: #### 5 102 #### [facility] [address] [facility] [place] [address], [facility] PLAT CNT 250 10*3/uL Normal 150-400 [facility] Comment on above: Performed By: #### 102 #### [facility] [address] [facility] [place] [address], [facility] RBC (Bld) [#/Vol] 3.96 10*6/uL Normal 3.80-5.00 [facility] Comment on above: Performed By: #### 5 0103 #### [facility] [address] [facility] [place] [address], [facility] WBC (Bld) [#/Vol] 5.80 10*3/uL Normal 4.00-10.60 [facility] Comment on above: Performed By: #### 5 0103 #### [facility] [address] [facility] [place] [address], [facility] LACTATE BLOODon 04-03-2020 Lactate [Moles/Vol] 0.9 mmol/L Normal 0.5-2.2 [facility] Comment on above: Performed By: #### 1 0054 #### [facility] [address] [facility]. [address] LIPASE BLOODon 04-03-2020 LIPASE 36 Units/L Normal 11-82 [facility] Comment on above: Performed By: #### 5 0103 #### [facility] [address] [facility]. [address] LIVER BATTERYon 04-03-2020 Albumin [Mass/Vol] 3.6 g/dL Normal 3.5-5.7 [facility] Comment on above: Performed By: #### 5 0103 #### [facility] [address] [facility] [place] [address], [facility] ALKALINE PHOSPH 59 IU/L Normal 34-104 [facility] Comment on above: Performed By: #### 5 0103 #### [facility] [address] [facility]. [address] ALT [Catalytic activity/Vol] 24 U/L Normal 7-52 [facility] Comment on above: Performed By: #### 5 0103 #### [facility] [address] [facility]. [address] AST [Catalytic activity/Vol] 16 U/L Normal 13-39 [facility] Comment on above: Performed By: #### 5 0103 #### [facility] [address] [facility] [place] [address], [facility] Bilirubin [Mass/Vol] 0.3 mg/dL Normal 0.3-1.0 [facility] Comment on above: Performed By: #### 5 0103 #### [facility] [address] [facility] [place] [address], [facility] Bilirubin.direct [Mass/Vol] 0.1 mg/dL Normal 0.0-0.2 [facility] Comment on above: Performed By: #### 5 0103 #### [facility] [address] [facility] [place] [address], [facility] Protein [Mass/Vol] 6.3 g/dL Normal 6.0-8.3 [facility] Comment on above: Performed By: #### 5 0103 #### [facility] [address] [facility] [place] [address], [facility] POC URINE PREGNANCYon 2019 Beta HCG ( test) Ql (U) Negative Normal NEGATIVE [facility] Comment on above: Result Comment: Perf ormed in Emergency Department. Performed By: #### 5 0103 #### [facility] [address] [facility] [place] [address], [facility] URINALYSIS REFLEXon 04-03-20 20 Appearance (U) CLOUDY Abnormal CLEAR [facility] Comment on above: Order Comment: Crite nancy for reflexing a culture was not met. Please call the lab [id number] within 24 hours of collection time if culture is needed Performed By: #### 5 0103 #### [facility] [address] [place] [address], [facility] Bilirubin Ql (U) Negative Normal NEGATIVE [facility] Comment on above: Order Comment: Crite nancy for reflexing a culture was not met. Please call the lab [id number] within 24 hours of collection time if culture is needed Performed By: #### 5 0103 #### [facility] [address] [place] [address], [facility] Color (U) YELLOW Normal YELLOW [facility] Comment on above: Order Comment: Crite nancy for reflexing a culture was not met. Please call the lab [id number] within 24 hours of collection time if culture is needed Performed By: #### 5 0103 #### [facility] [address] [place] [address], [place] EPIS MOD Abnormal FEW,OCC,NONE SEEN [facility] Comment on above: Order Comment: Crite nancy for reflexing a culture was not met. Please call the lab [id number] within 24 hours of collection time if culture is needed Performed By: #### 5 0103 #### [facility] [address] [facility] [place] [address], [facility] Glucose Ql (U) Negative Normal NEGATIVE [facility] Comment on above: Order Comment: Crite nancy for reflexing a culture was not met. Please call the lab [phone] within 24 hours of collection time if culture is needed Performed By: #### 5 0103 #### [facility] [address] [place] [address], [place] Hemoglobin Ql (U) LARGE Abnormal NEGATIVE [facility] Comment on above: Order Comment: Crite nancy for reflexing a culture was not met. Please call the lab [id number] within 24 hours of collection time if culture is needed Performed By: #### 5 0103 #### [facility] [address] [place] [address], [place] KETONE Negative Normal NEGATIVE [facility] Comment on above: Order Comment: Crite nancy for reflexing a culture was not met. Please call the lab [id number] within 24 hours of collection time if culture is needed Performed By: #### 5 0103 #### [facility] [address] [place] [address], [place] LEUK PALLAVI Negative Normal NEGATIVE [facility] Comment on above: Order Comment: Crite nancy for reflexing a culture was not met. Please call the lab [id number] within 24 hours of collection time if culture is needed Performed By: #### 5 0103 #### [facility] [address] [place] [address], [facility] MUCUS THREADS OCC Abnormal NONE SEEN [facility] Comment on above: Order Comment: Crite nancy for reflexing a culture was not met. Please call the lab [id number] within 24 hours of collection time if culture is needed Performed By: #### 5 0103 #### [facility] [address] [place] [address], [facility] Nitrite Ql (U) Negative Normal NEGATIVE [facility] Comment on above: Order Comment: Crite nancy for reflexing a culture was not met. Please call the lab [id number] within 24 hours of collection time if culture is needed Performed By: #### 5 0103 #### [facility] [address] [place] [address], [facility] pH (U) 6.0 [pH] Normal 5.0-8.0 [facility] Comment on above: Order Comment: Crite nancy for reflexing a culture was not met. Please call the lab [id number] within 24 hours of collection time if culture is needed Performed By: #### 5 0103 #### [facility] [address] [place] [address], [facility] Protein Ql (U) 100 mg/dL Abnormal NEGATIVE [facility] Comment on above: Order Comment: Crite nancy for reflexing a culture was not met. Please call the lab [id number] within 24 hours of collection time if culture is needed Performed By: #### 5 0103 #### [facility] [address] [place] [address], [facility] RBC (U) [#/Vol] /uL Abnormal NONE SEEN [facility] Comment on above: Order Comment: Crite nancy for reflexing a culture was not met. Please call the lab [id number] within 24 hours of collection time if culture is needed Performed By: #### 5 0103 #### [facility] [address] [facility] [place] [address], [facility] SPEC GRAV 1.025 High 1.015-1.020 [facility] Comment on above: Order Comment: Crite nancy for reflexing a culture was not met. Please call the lab [id number] within 24 hours of collection time if culture is needed Performed By: #### 5 0103 #### [facility] [address] [facility] [place] [address], [facility] WBC UA 11-20 Abnormal NONE SEEN [facility] Comment on above: Order Comment: Crite nancy for reflexing a culture was not met. Please call the lab [id number] within 24 hours of collection time if culture is needed Performed By: #### 5 0103 #### [facility] [address] [facility]. [address] BASIC METABOLIC PANELon 05-0 -2020 Calcium [Mass/Vol] 8.5 mg/dL Low 8.6-10.3 [facility] Comment on above: Performed By: #### 5 0103 #### [facility] [address] [facility] [place] [address], [facility] Chloride [Moles/Vol] 104 mmol/L Normal 98-107 [facility] Comment on above: Performed By: #### 5 0103 #### [facility] [address] [facility] [place] [address], [facility] CO2 [Moles/Vol] 24 mmol/L Normal 21-31 [facility] Comment on above: Performed By: #### 5 0103 #### [facility] [address] [facility] [place] [address], [facility] Creatinine [Mass/Vol] 0.80 mg/dL Normal 0.60-1.20 [facility] Comment on above: Performed By: #### 5 0103 #### [facility] [address] [facility] [place] [address], [facility] GFR/1.73 sq M.predicted among blacks MDRD (S/P/Bld) [Vol rate/Area] mL/min/{1.73_m2} Normal >60 [facility] Comment on above: Performed By: #### 5 0103 #### [facility] [address] [place] [address], [facility] GFR/1.73 sq M.predicted among non-blacks MDRD (S/P/Bld) [Vol rate/Area] mL/min/{1.73_m2} Normal >60 [facility] Comment on above: Performed By: #### 5 3 #### [facility] [address] Glucose [Mass/Vol] 167 mg/dL High 70-100 [facility] Comment on above: Performed By: #### 5 3 #### [facility] [address] Potassium [Moles/Vol] 3.6 mmol/L Normal 3.5-5.1 [facility] Comment on above: Performed By: #### 5 3 #### [facility] [address] [place] [address], [facility] Sodium [Moles/Vol] 135 mmol/L Low 136-145 [facility] Comment on above: Performed By: #### 5 3 #### [facility] [address] Urea nitrogen [Mass/Vol] 12 mg/dL Normal 7-25 [facility] Comment on above: Performed By: #### 5 3 #### [facility] [address] [place] [address], [facility] CBC W/DIFFon 10-19-2019 ABS IMM GRANS 0.1 10*3/uL Normal 0.0-0.2 [facility] Comment on above: Performed By: #### 5 0103 #### [facility] [address] [facility] [place] [address], [facility] ABS NEUTROPHILS 8.1 10*3/uL High 1.6-7.6 [facility] Comment on above: Performed By: #### 5 0103 #### [facility] [address] [place] [address], [facility] Basophils (Bld) [#/Vol] 0.0 10*3/uL Normal 0.0-0.2 [facility] Comment on above: Performed By: #### 5 0103 #### [facility] [address] [facility] [place] [address], [facility] Basophils/100 WBC (Bld) 0.3 % Normal 0.0-1.0 T davina [facility] Comment on above: Performed By: #### 5 102 #### [facility] [address] [facility] [place] [address], [facility] Eosinophils (Bld) [#/Vol] 0.0 10*3/uL Normal 0.0-0.5 [facility] Comment on above: Performed By: #### 5 0103 #### [facility] [address] [facility] [place] [address], [facility] Eosinophils/100 WBC (Bld) 0.1 % Normal 0.0-6.0 [facility] Comment on above: Performed By: #### 5 3 #### [facility] [address] Erythrocyte distribution width (RBC) [Ratio] 12.4 % Normal 11.5-15.0 [facility] Comment on above: Performed By: #### 5 3 #### [facility] [address] [place] [address], [facility] Hematocrit (Bld) [Volume fraction] 36.3 % Normal 36.0-45.0 [facility] Comment on above: Performed By: #### 5 3 #### [facility] [address] [facility] [place] [address], [facility] Hemoglobin (Bld) [Mass/Vol] 12.0 g/dL Normal 12.0-15.0 [facility] Comment on above: Performed By: #### 5 3 #### [facility] [address] [facility] [place] [address], [facility] IMMATURE GRANS 1.0 % Normal 0.0-1.0 [facility] Comment on above: Performed By: #### 102 #### [facility] [address] [place] [address], [facility] Lymphocytes (Bld) [#/Vol] 2.3 10*3/uL Normal 1.2-4.0 [facility] Comment on above: Performed By: #### 102 #### [facility] [address] Lymphocytes/100 WBC (Bld) 20.1 % Normal 20.0-45.0 [facility] Comment on above: Performed By: #### 5 3 #### [facility] [address] [place] [address], [facility] MCH (RBC) [Entitic mass] 30.2 pg Normal 27.0-33.0 [facility] Comment on above: Performed By: #### 5 3 #### [facility] [address] [place] [address], [facility] MCHC (RBC) [Mass/Vol] 33.1 g/dL Normal 32.0-35.0 [facility] Comment on above: Performed By: #### 5 3 #### [facility] [address] [place] [address], [facility] MCV (RBC) [Entitic vol] 91.4 fL Normal 82.0-98.0 [facility] Comment on above: Performed By: #### 5 3 #### [facility] [address] [facility] [place] [address], [facility] Monocytes (Bld) [#/Vol] 0.9 10*3/uL Normal 0.1-1.0 [facility] Comment on above: Performed By: #### 5 0103 #### [facility] [address] [place] [address], [facility] MONOS 7.5 % Normal 5.0-12.0 [facility] Comment on above: Performed By: #### 5 0103 #### [facility] [address] [place] [address], [facility] Neutrophils/100 WBC (Bld) 71.0 % Normal 40.0-72.0 [facility] Comment on above: Performed By: #### 5 102 #### [facility] [address] [facility] [place] [address], [facility] Nucleated RBC/100 WBC (Bld) [Ratio] 0 % Normal 0-0 [facility] Comment on above: Performed By: #### 5 0103 #### [facility] [address] [facility] [place] [address], [facility] PLAT CNT 281 10*3/uL Normal 150-400 [facility] Comment on above: Performed By: #### 5 3 #### [facility] [address] [place] [address], [facility] RBC (Bld) [#/Vol] 3.97 10*6/uL Normal 3.80-5.00 [facility] Comment on above: Performed By: #### 5 0103 #### [facility] [address] [facility] [place] [id number], [facility] WBC (Bld) [#/Vol] 11.37 10*3/uL High 4.00-10.60 [facility] Comment on above: Performed By: #### 3 #### [facility] [address] [place] [address], [facility] LACTATE BLOODon 05-03-2020 Lactate [Moles/Vol] 1.4 mmol/L Normal 0.5-2.2 [facility] Comment on above: Performed By: #### 5 0103 #### [facility] [address] [place] [address], [facility] LIPASE BLOODon 10-19-2019 LIPASE 10 Units/L Low 11-82 [facility] Comment on above: Performed By: #### 5 0103 #### [facility] [address] [place] [address], [facility] LIVER BATTERYon 10-19-2019 Albumin [Mass/Vol] 3.6 g/dL Normal 3.5-5.7 [facility] Comment on above: Performed By: #### 5 0103 #### [facility] [address] [place] [address], [facility] ALKALINE PHOSPH 51 IU/L Normal 34-104 [facility] Comment on above: Performed By: #### 5 0103 #### [facility] [address] [place] [address], [facility] ALT [Catalytic activity/Vol] 21 U/L Normal 7-52 [facility] Comment on above: Performed By: #### 5 0103 #### [facility] [address] [place] [address], [facility] AST [Catalytic activity/Vol] 11 U/L Low 13-39 [facility] Comment on above: Performed By: #### 5 0103 #### [facility] [address] [place] [address], [facility] Bilirubin [Mass/Vol] 0.3 mg/dL Normal 0.3-1.0 [facility] Comment on above: Performed By: #### 5 0103 #### [facility] [address] [place] [address], [facility] Bilirubin.direct [Mass/Vol] 0.1 mg/dL Normal 0.0-0.2 [facility] Comment on above: Performed By: #### 5 0103 #### [facility] [address] [place] [address], [facility] Protein [Mass/Vol] 6.3 g/dL Normal 6.0-8.3 [facility] Comment on above: Performed By: #### 5 0103 #### [facility] [address] [place] [address], [facility] SERUM TESTon 10-18 TEST Negative Normal [facility] Comment on above: Performed By: #### 5 0103 #### [facility] [address] [place] [address], [facility] BASIC METABOLIC PANELon Calcium [Mass/Vol] 8.4 mg/dL Low 8.6-10.3 [facility] Comment on above: Performed By: #### 3 6901, 10288, 53633 #### [facility] [address] [place] [address], [place] Chloride [Moles/Vol] 103 mmol/L Normal 98-107 [facility] Comment on above: Performed By: #### 3 1281, 83663, 26257 #### [facility] [address] [place] [address], [place] CO2 [Moles/Vol] 26 mmol/L Normal 21-31 [facility] Comment on above: Performed By: #### 3 6901, 40635, 28318 #### [facility] [address] [place] [address], [place] Creatinine [Mass/Vol] 0.87 mg/dL Normal 0.60-1.20 [facility] Comment on above: Performed By: #### 3 2131, 87884, 52957 #### [facility] [address] [place] [address], [place] GFR/1.73 sq M.predicted among blacks MDRD (S/P/Bld) [Vol rate/Area] mL/min/{1.73_m2} Normal >60 [facility] Comment on above: Performed By: #### 3 6301, 43865, 50374 #### [facility] [address] [place] [address], [facility] GFR/1.73 sq M.predicted among non-blacks MDRD (S/P/Bld) [Vol rate/Area] mL/min/{1.73_m2} Normal >60 [facility] Comment on above: Performed By: #### 3 6901, 15862, 34784 #### [facility] [address] [facility]. [address] Glucose [Mass/Vol] 117 mg/dL High 70-100 [facility] Comment on above: Performed By: #### 3 295, 56959, 44236 #### [facility] [address] [facility] [place] [address], [facility] Potassium [Moles/Vol] 4.2 mmol/L Normal 3.5-5.1 [facility] Comment on above: Performed By: #### 3 0441, 96836, 57589 #### [facility] [address] [facility] [place] [address], [facility] Sodium [Moles/Vol] 135 mmol/L Low 136-145 [facility] Comment on above: Performed By: #### 3 690, 38289, 65400 #### [facility] [address] [facility] [place] [address], [facility] Urea nitrogen [Mass/Vol] 10 mg/dL Normal 7-25 [facility] Comment on above: Performed By: #### 3 1251, 73952, 20957 #### [facility] [address] [facility] [place] [address], [facility] CBC W/DIFFon 10-17-2019 ABS IMM GRANS 0.0 10*3/uL Normal 0.0-0.2 [facility] Comment on above: Performed By: #### 5 0103 #### [facility] [address] [place] [address], [facility] ABS NEUTROPHILS 3.0 10*3/uL Normal 1.6-7.6 [facility] Comment on above: Performed By: #### 5 0103 #### [facility] [address] [place] [address], [facility] Basophils (Bld) [#/Vol] 0.0 10*3/uL Normal 0.0-0.2 [facility] Comment on above: Performed By: #### 5 0103 #### [facility] [address] [place] [address], [facility] Basophils/100 WBC (Bld) 0.5 % Normal 0.0-1.0 T [facility] Comment on above: Performed By: #### 5 0103 #### [facility] [address] [facility] [place] [address], [facility] Eosinophils (Bld) [#/Vol] 0.1 10*3/uL Normal 0.0-0.5 [facility] Comment on above: Performed By: #### 5 0103 #### [facility] [address] [place] [address], [facility] Eosinophils/100 WBC (Bld) 1.2 % Normal 0.0-6.0 [facility] Comment on above: Performed By: #### 5 0103 #### [facility] [address] [place] [id number], [facility] Erythrocyte distribution width (RBC) [Ratio] 12.4 % Normal 11.5-15.0 [facility] Comment on above: Performed By: #### 5 3 #### [facility] [address] [place] [id number], [facility] Hematocrit (Bld) [Volume fraction] 35.7 % Low 36.0-45.0 [facility] Comment on above: Performed By: #### 5 102 #### [facility] [address] [facility] [place] [address], [facility] Hemoglobin (Bld) [Mass/Vol] 11.6 g/dL Low 12.0-15.0 [facility] Comment on above: Performed By: #### 3 #### [facility] [address] [facility] [place] [address], [facility] IMMATURE GRANS 0.4 % Normal 0.0-1.0 [facility] Comment on above: Performed By: #### 3 #### [facility] [address] Lymphocytes (Bld) [#/Vol] 2.0 10*3/uL Normal 1.2-4.0 [facility] Comment on above: Performed By: #### 102 #### [facility] [address] Lymphocytes/100 WBC (Bld) 34.6 % Normal 20.0-45.0 [facility] Comment on above: Performed By: #### 3 #### [facility] [address] MCH (RBC) [Entitic mass] 30.1 pg Normal 27.0-33.0 [facility] Comment on above: Performed By: #### 3 #### [facility] [address] [facility]. [address] MCHC (RBC) [Mass/Vol] 32.5 g/dL Normal 32.0-35.0 [facility] Comment on above: Performed By: #### 3 #### [facility] [address] [place] [address], [facility] MCV (RBC) [Entitic vol] 92.5 fL Normal 82.0-98.0 [facility] Comment on above: Performed By: #### 3 #### [facility] [address] [place] [address], [facility] Monocytes (Bld) [#/Vol] 0.6 10*3/uL Normal 0.1-1.0 [facility] Comment on above: Performed By: #### 3 #### [facility] [address] [place] [address], [facility] MONOS 10.2 % Normal 5.0-12.0 [facility] Comment on above: Performed By: #### 102 #### [facility] [address] [facility] [place] [address], [facility] Neutrophils/100 WBC (Bld) 53.1 % Normal 40.0-72.0 [facility] Comment on above: Performed By: #### 102 #### [facility] [address] [facility] [place] [address], [facility] Nucleated RBC/100 WBC (Bld) [Ratio] 0 % Normal 0-0 [facility] Comment on above: Performed By: #### 102 #### [facility] [address] [facility] [place] [address], [facility] PLAT CNT 236 10*3/uL Normal 150-400 [facility] Comment on above: Performed By: #### 102 #### [facility] [address] [facility] [place] [address], [facility] RBC (Bld) [#/Vol] 3.86 10*6/uL Normal 3.80-5.00 [facility] Comment on above: Performed By: #### 3 #### [facility] [address] [facility] [place] [address], [facility] WBC (Bld) [#/Vol] 5.66 10*3/uL Normal 4.00-10.60 [facility] Comment on above: Performed By: #### 3 #### [facility] [address] [place] [place] [address], [facility] LIPASE BLOODon 10-17-2019 LIPASE 124 Units/L High 11-82 [facility] Comment on above: Performed By: #### 3 6901, 90069, 51272 #### [facility] [address] [place] [address], [place] LIVER BATTERYon 10-17-2019 Albumin [Mass/Vol] 3.4 g/dL Low 3.5-5.7 [facility] Comment on above: Performed By: #### 3 6901, 18156, 92876 #### [facility] [address] [place] [id number], [facility] ALKALINE PHOSPH 50 IU/L Normal 34-104 [facility] Comment on above: Performed By: #### 3 6901, 52893, 74432 #### [facility] [address] [place] [address], [facility] ALT [Catalytic activity/Vol] 23 U/L Normal 7-52 [facility] Comment on above: Performed By: #### 3 6901, 99210, 52350 #### [facility] [address] [place] [id number], [facility] AST [Catalytic activity/Vol] 18 U/L Normal 13-39 [facility] Comment on above: Performed By: #### 3 6901, 33670, 02172 #### [facility] [address] [place] [id number], [place] Bilirubin [Mass/Vol] 0.4 mg/dL Normal 0.3-1.0 [facility] Comment on above: Performed By: #### 3 6901, 14192, 87510 #### [facility] [address] [place] [id number], [facility] Bilirubin.direct [Mass/Vol] 0.1 mg/dL Normal 0.0-0.2 [facility] Comment on above: Performed By: #### 3 6901, 30068, 58796 #### [facility] [address] [place] [address], [facility] Protein [Mass/Vol] 5.9 g/dL Low 6.0-8.3 [facility] Comment on above: Performed By: #### 3 6901, 86950, 68564 #### [facility] [address] [facility] [place] [address], [facility] POC URINE PREGNANCYon 2019 Beta HCG ( test) Ql (U) Negative Normal NEGATIVE [facility] Comment on above: Result Comment: Perf ormed in Emergency Department. Performed By: #### 8 4140 #### [facility] [address] [facility] [place] [address], [facility] URINALYSIS REFLEXon 10-17-19 20 Appearance (U) SL CLOUDY Abnormal CLEAR [facility] Comment on above: Order Comment: Crite nancy for reflexing a culture was not met. Please call the lab [id number] within 24 hours of collection time if culture is needed Performed By: #### 5 0103 #### [facility] [address] [facility] [place] [address], [facility] Bilirubin Ql (U) Negative Normal NEGATIVE [facility] Comment on above: Order Comment: Crite nancy for reflexing a culture was not met. Please call the lab [id number] within 24 hours of collection time if culture is needed Performed By: #### 5 0103 #### [facility] [address] [facility] [place] [address], [facility] Color (U) YELLOW Normal YELLOW [facility] Comment on above: Order Comment: Crite nancy for reflexing a culture was not met. Please call the lab [id number] within 24 hours of collection time if culture is needed Performed By: #### 5 0103 #### [facility] [address] [facility] [place] [address], [place] Glucose Ql (U) Negative Normal NEGATIVE [facility] Comment on above: Order Comment: Crite nancy for reflexing a culture was not met. Please call the lab [id number] within 24 hours of collection time if culture is needed Performed By: #### 5 0103 #### [facility] [address] [place] [address], [place] Hemoglobin Ql (U) Negative Normal NEGATIVE [facility] Comment on above: Order Comment: Crite anncy for reflexing a culture was not met. Please call the lab [id number] within 24 hours of collection time if culture is needed Performed By: #### 5 0103 #### [facility] [address] [place] [address], [place] KETONE Negative Normal NEGATIVE [facility] Comment on above: Order Comment: Crite nancy for reflexing a culture was not met. Please call the lab [id number] within 24 hours of collection time if culture is needed Performed By: #### 5 0103 #### [facility] [address] [place] [address], [place] LEUK PALLAVI Negative Normal NEGATIVE [facility] Comment on above: Order Comment: Crite nancy for reflexing a culture was not met. Please call the lab [id number] within 24 hours of collection time if culture is needed Performed By: #### 5 0103 #### [facility] [address] [facility] [place] [address], [facility] MICRO NOT DONE Normal [facility] Comment on above: Order Comment: Crite nancy for reflexing a culture was not met. Please call the lab [id number] within 24 hours of collection time if culture is needed Result Comment: Micr oscopics not performed on urines with negative chemical reactions unless requested in original order Performed By: #### 5 0103 #### [facility] [address] [place] [address], [place] Nitrite Ql (U) Negative Normal NEGATIVE [facility] Comment on above: Order Comment: Crite nancy for reflexing a culture was not met. Please call the lab [id number] within 24 hours of collection time if culture is needed Performed By: #### 5 0103 #### [facility] [address] [place] [address], [place] pH (U) 7.0 [pH] Normal 5.0-8.0 [facility] Comment on above: Order Comment: Crite nancy for reflexing a culture was not met. Please call the lab [id number] within 24 hours of collection time if culture is needed Performed By: #### 5 0103 #### [facility] [address] [facility] [place] [address], [facility] Protein Ql (U) Negative Normal NEGATIVE [facility] Comment on above: Order Comment: Crite nancy for reflexing a culture was not met. Please call the lab [phone] within 24 hours of collection time if culture is needed Performed By: #### [id number] #### [facility] [address] [place] [address], [facility] SPEC GRAV 1.014 Low 1.015-1.020 [facility] Comment on above: Order Comment: Crite nancy for reflexing a culture was not met. Please call the lab [phone] within 24 hours of collection time if culture is needed Performed By: #### 5 [id number] #### [facility] [address] [place], [place] [id number] [place] [address] C-Reactive Proteinon 020 CRP [Mass/Vol] 6.5 mg/L High 0.0-5.0 [facility] Comment on above: Performed By: #### C DP, HCG, CP, CRP, LIP, MG, SED #### [facility] [address] [place] [address] Blacking Machine Operator: Reynold Madison DO CRP [Mass/Vol] 6.5 mg/L High 0 - 5 mg/L [place], [place] CBC Auto Differentialon Basophils (Bld) [#/Vol] 0.00 10*3/uL [place] Basophils/100 WBC (Bld) 1 % 0 - 2 % [place] Differential Type NOT REPORTED [place] Eosinophils (Bld) [#/Vol] 0.10 10*3/uL [place] Eosinophils/100 WBC (Bld) 2 % 0 - 4 % [place] Erythrocyte distribution width (RBC) [Ratio] 13.6 % 11.5 - 14.9 % [place] Hematocrit (Bld) [Volume fraction] 40.6 % 36 - 46 % [place] Hemoglobin (Bld) [Mass/Vol] 13.4 g/dL 12 - 16 g/dL [place] Interpretation and review of laboratory results Abnormal [place] Lymphocytes (Bld) [#/Vol] 1.60 10*3/uL [place] Lymphocytes/100 WBC (Bld) 33 % 24 - 44 % [place] MCH (RBC) [Entitic mass] 29.9 pg 26 - 34 pg [place] MCHC (RBC) [Mass/Vol] 33.0 g/dL 31 - 37 g/dL [place] MCV (RBC) [Entitic vol] 90.4 fL 80 - 100 fL [place] Monocytes (Bld) [#/Vol] 0.50 10*3/uL [place] Monocytes/100 WBC (Bld) 11 % High 1 - 7 % [place] Platelet mean volume (Bld) [Entitic vol] 7.3 fL 6 - 12 fL [place] Platelets (Bld) [#/Vol] 269 10*3/uL [place] Platelets (Bld) [#/Vol] NOT REPORTED [place] RBC (Bld) [#/Vol] 4.48 10*6/uL 4 - 5.2 m/uL [place] RBC morphology finding Nom (Bld) NOT REPORTED [place] Segmented neutrophils/100 WBC (Bld) 53 % 36 - 66 % [place] Segs Absolute 2.70 [place] WBC (Bld) [#/Vol] 5.0 10*3/uL [place] WBC (Bld) [#/Vol] NOT REPORTED per 100 WBC [place] WBC Morphology NOT REPORTED [place] CBC with Diffon 08-20-2019 Abs. Basophil 0.00 k/uL Normal 0.0-0.2 [facility] Comment on above: Performed By: #### C DP, HCG, CP, CRP, LIP, MG, SED #### [facility] [address] [facility] [place] [address] Blacking Machine Operator: Reynold Madison DO Abs.Neutrophil (Seg) 2.70 k/uL Normal 1.3-9.1 [facility] Comment on above: Performed By: #### C DP, HCG, CP, CRP, LIP, MG, SED #### [facility] [address] [facility] [place] [address] Blacking Machine Operator: Reynold Madison DO Basophils/100 WBC (Bld) 1 % Normal 0-2 [facility] Comment on above: Performed By: #### C DP, HCG, CP, CRP, LIP, MG, SED #### [facility] [address] [facility] [place] [address] Blacking Machine Operator: eRynold Madison DO Eosinophils (Bld) [#/Vol] 0.10 10*3/uL Normal 0.0-0.4 [facility] Comment on above: Performed By: #### C DP, HCG, CP, CRP, LIP, MG, SED #### [facility] [address] [facility] [place] [address] Blacking Machine Operator: Reynold Madison DO Eosinophils/100 WBC (Bld) 2 % Normal 0-4 [facility] Comment on above: Performed By: #### C DP, HCG, CP, CRP, LIP, MG, SED #### [facility] [address] [facility] [place] [address] Blacking Machine Operator: Reynold Madison DO Erythrocyte distribution width (RBC) [Ratio] 13.6 % Normal 11.5-14.9 [facility] Comment on above: Performed By: #### C DP, HCG, CP, CRP, LIP, MG, SED #### [facility] [address] [facility] [place] [address] Blacking Machine Operator: Reynold Madison DO Hematocrit (Bld) [Volume fraction] 40.6 % Normal 36-46 [facility] Comment on above: Performed By: #### C DP, HCG, CP, CRP, LIP, MG, SED #### [facility] [address] [facility] [place] [address] Blacking Machine Operator: Reynold Madison DO Hemoglobin (Bld) [Mass/Vol] 13.4 g/dL Normal 12.0-16.0 [facility] Comment on above: Performed By: #### C DP, HCG, CP, CRP, LIP, MG, SED #### [facility] [address] [place] [address]. [place] [address] Blacking Machine Operator: Reynold Madison DO Lymphocytes (Bld) [#/Vol] 1.60 10*3/uL Normal 1.0-4.8 [facility] Comment on above: Performed By: #### C DP, HCG, CP, CRP, LIP, MG, SED #### [facility] [place] [address] Blacking Machine Operator: Reynold Madison DO Lymphocytes/100 WBC (Bld) 33 % Normal 24-44 [facility] Comment on above: Performed By: #### C DP, HCG, CP, CRP, LIP, MG, SED #### [facility] [place] [address] Blacking Machine Operator: Reynold Madison DO MCH (RBC) [Entitic mass] 29.9 pg Normal 26-34 [facility] Comment on above: Performed By: #### C DP, HCG, CP, CRP, LIP, MG, SED #### [facility] [address] [place] [address] Blacking Machine Operator: Reynold Madison DO MCHC (RBC) [Mass/Vol] 33.0 g/dL Normal 31-37 [facility] Comment on above: Performed By: #### C DP, HCG, CP, CRP, LIP, MG, SED #### [facility] [address] [place] [address] Blacking Machine Operator: Reynold Madison DO MCV (RBC) [Entitic vol] 90.4 fL Normal 80-100 [facility] Comment on above: Performed By: #### C DP, HCG, CP, CRP, LIP, MG, SED #### [facility] [address] [place] [address] Blacking Machine Operator: Reynold Madison DO Monocytes (Bld) [#/Vol] 0.50 10*3/uL Normal 0.1-1.3 [facility] Comment on above: Performed By: #### C DP, HCG, CP, CRP, LIP, MG, SED #### [facility] [address] [place] [address] Blacking Machine Operator: Reynold Madison DO Monocytes/100 WBC (Bld) 11 % High 1-7 [facility] Comment on above: Performed By: #### C DP, HCG, CP, CRP, LIP, MG, SED #### [facility] [address] [place] [address] Blacking Machine Operator: Reynold Madison DO Neutrophil (Seg) 53 % Normal 36-66 [facility] Comment on above: Performed By: #### C DP, HCG, CP, CRP, LIP, MG, SED #### [facility] [address] [place] [address] Blacking Machine Operator: Reynold Madison DO Platelet mean volume (Bld) [Entitic vol] 7.3 fL Normal 6.0-12.0 [facility] Comment on above: Performed By: #### C DP, HCG, CP, CRP, LIP, MG, SED #### [facility] [place] [address] Blacking Machine Operator: Reynold Madison DO Platelets (Bld) [#/Vol] 269 10*3/uL Normal 150-450 [facility] Comment on above: Performed By: #### C DP, HCG, CP, CRP, LIP, MG, SED #### [facility] [place] [address] Blacking Machine Operator: eRynold Madison DO RBC (Bld) [#/Vol] 4.48 10*6/uL Normal 4.0-5.2 [facility] Comment on above: Performed By: #### C DP, HCG, CP, CRP, LIP, MG, SED #### [facility] [address] [place] [address] Blacking Machine Operator: Reynold Madison DO WBC (Bld) [#/Vol] 5.0 10*3/uL Normal 3.5-11.0 [facility] Comment on above: Performed By: #### C DP, HCG, CP, CRP, LIP, MG, SED #### [facility] [address] [place] [address] Blacking Machine Operator: Reynold Madison DO Abs.Imm.Granulocyte NOT REPORTED Normal 0.00-0.30 [facility] Comment on above: Performed By: #### C DP, HCG, CP, CRP, LIP, MG, SED #### [facility] [address] [place] [address] Blacking Machine Operator: Reynold Madison DO Auto Diff Performed NOT REPORTED Normal [facility] Comment on above: Performed By: #### C DP, HCG, CP, CRP, LIP, MG, SED #### [facility] [place] [address] Blacking Machine Operator: Reynold Madison DO Immature granulocytes (Bld) [#/Vol] NOT REPORTED Normal 0 [facility] Comment on above: Performed By: #### C DP, HCG, CP, CRP, LIP, MG, SED #### [facility] [address] [place] [address]. [place] [address] Blacking Machine Operator: Reynold Madison DO NRBC Automated NOT REPORTED Normal [facility] Comment on above: Performed By: #### C DP, HCG, CP, CRP, LIP, MG, SED #### [facility] [address] [place] [address]. [place] [address] Blacking Machine Operator: Reynold Madison DO Platelets (Bld) [#/Vol] NOT REPORTED Normal [facility] Comment on above: Performed By: #### C DP, HCG, CP, CRP, LIP, MG, SED #### [facility] [address] [place] [address]. [place] [address] Blacking Machine Operator: Reynold Madison DO RBC morphology finding Nom (Bld) NOT REPORTED Normal [facility] Comment on above: Performed By: #### C DP, HCG, CP, CRP, LIP, MG, SED #### [facility] [address] [place] [address]. [place] [address] Blacking Machine Operator: Reynold Madison DO WBC Morphology NOT REPORTED Normal [facility] Comment on above: Performed By: #### C DP, HCG, CP, CRP, LIP, MG, SED #### [facility] [address] [place] [address]. [place] [address] Blacking Machine Operator: Reynold Madison DO CT ABDOMEN PELVIS W [...] Aries Moise DO 08/20/19 Final result Normal [facility] CT ABDOMEN PELVIS W IV CONTR AST Additional Contrast? Noneon 08-20-2019 1. Multiple small bilateral nonobstructing kidney stones. No obstructive uropathy. 2. No bowel obstruction. Prior appendectomy. No evidence of active bowel inflammation. 3. Prior cholecystectomy. [facility]- [place], [place], [facility] Incoming Radiant Results From [facility] - 08/20/2019 5:28 AM EST EXAMINATION: CT [...] of active bowel inflammation. 3. Prior cholecystectomy. [facility], [place] EXAMINATION: CT OF THE ABDOMEN AND PELVIS [...] No lymphadenopathy in the abdomen or pelvis. [facility], [place] Comp Metabolic Profon 2019 (cont.) Normal [facility] Comment on above: Result Comment: Aver age GFR for 40-49 years old: 99 mL/min/1.73sq m Chronic Kidney Disease: <60 mL/min/1.73sq m Kidney failure: <15 mL/min/1.73sq m eGFR calculated using average adult body mass. Additional eGFR calculator available at: http://www.Loopback.[employer]/multiple_crcl_2012.htm Performed By: #### C DP, HCG, CP, CRP, LIP, MG, SED #### [facility] [address] [place] [address] Blacking Machine Operator: Fanelly, Reynold, DO Albumin [Mass/Vol] 3.9 g/dL Normal 3.5-5.2 [facility] Comment on above: Performed By: #### C DP, HCG, CP, CRP, LIP, MG, SED #### [facility] [address] [place] [address] Blacking Machine Operator: Reynold Madison DO Alkaline Phos 67 U/L Normal 35-104 [facility] Comment on above: Performed By: #### C DP, HCG, CP, CRP, LIP, MG, SED #### [facility] [address] [facility] [place] [address] Blacking Machine Operator: Reynold Madison DO ALT [Catalytic activity/Vol] 39 U/L High 5-33 [facility] Comment on above: Performed By: #### C DP, HCG, CP, CRP, LIP, MG, SED #### [facility] [address] [facility] [place] [address] Blacking Machine Operator: Reynold Madison DO Anion gap [Moles/Vol] 12 mmol/L Normal 9-17 [facility] Comment on above: Performed By: #### C DP, HCG, CP, CRP, LIP, MG, SED #### [facility] [place] [address] Blacking Machine Operator: Reynold Madison DO AST [Catalytic activity/Vol] 23 U/L Normal <32 [facility] Comment on above: Performed By: #### C DP, HCG, CP, CRP, LIP, MG, SED #### [facility] [address] [facility] [place] [address] Blacking Machine Operator: Reynold Madison DO Bilirubin Ql (U) 0.32 mg/dL Normal 0.3-1.2 [facility] Comment on above: Performed By: #### C DP, HCG, CP, CRP, LIP, MG, SED #### [facility] [address] [place] [address] Blacking Machine Operator: Reynold Madison DO Calcium [Mass/Vol] 9.3 mg/dL Normal 8.6-10.4 [facility] Comment on above: Performed By: #### C DP, HCG, CP, CRP, LIP, MG, SED #### [facility] [place] [address] Blacking Machine Operator: Reynold Madison DO Chloride [Moles/Vol] 99 mmol/L Normal 98-107 [facility] Comment on above: Performed By: #### C DP, HCG, CP, CRP, LIP, MG, SED #### [facility] [address] [facility] [place] [address] Blacking Machine Operator: Reynold Madison DO CO2 [Moles/Vol] 26 mmol/L Normal 20-31 [facility] Comment on above: Performed By: #### C DP, HCG, CP, CRP, LIP, MG, SED #### [facility] [place] [address] Blacking Machine Operator: Reynold Madison DO Creatinine [Mass/Vol] 0.94 mg/dL High 0.50-0.90 [facility] Comment on above: Performed By: #### C DP, HCG, CP, CRP, LIP, MG, SED #### [facility] [address] [place] [address] Blacking Machine Operator: Reynold Madison DO GFR, Amer >60 Normal >60 [facility] Comment on above: Performed By: #### C DP, HCG, CP, CRP, LIP, MG, SED #### [facility] [place] [address] Blacking Machine Operator: Reynold Madison DO GFR,non Amer >60 Normal >60 [facility] Comment on above: Performed By: #### C DP, HCG, CP, CRP, LIP, MG, SED #### [facility] [address] [place] [address] Blacking Machine Operator: Reynold Madison DO Glucose [Mass/Vol] 159 mg/dL High 70-99 [facility] Comment on above: Performed By: #### C DP, HCG, CP, CRP, LIP, MG, SED #### [facility] [address] [place] [address] Blacking Machine Operator: Reynold Madison DO Potassium [Moles/Vol] 4.4 mmol/L Normal 3.7-5.3 [facility] Comment on above: Performed By: #### C DP, HCG, CP, CRP, LIP, MG, SED #### [facility] [place] [address] Blacking Machine Operator: Reynold Madison DO Protein [Mass/Vol] 6.9 g/dL Normal 6.4-8.3 [facility] Comment on above: Performed By: #### C DP, HCG, CP, CRP, LIP, MG, SED #### [facility] [place] [address] Blacking Machine Operator: Reynold Madison DO Sodium [Moles/Vol] 137 mmol/L Normal 135-144 [facility] Comment on above: Performed By: #### C DP, HCG, CP, CRP, LIP, MG, SED #### [facility] [address] [facility] [place] [address] Blacking Machine Operator: Reynold Madison DO Urea nitrogen [Mass/Vol] 13 mg/dL Normal 6-20 [facility] Comment on above: Performed By: #### C DP, HCG, CP, CRP, LIP, MG, SED #### [facility] [address] [place] [address] Blacking Machine Operator: Reynold Madison DO Albumin/Globulin [Mass ratio] NOT REPORTED Normal 1.0-2.5 [facility] Comment on above: Performed By: #### C DP, HCG, CP, CRP, LIP, MG, SED #### [facility] [address] [facility] [place] [address] Blacking Machine Operator: Reynold Madison DO BUN/CRE Ratio NOT REPORTED Normal 9-20 [facility] Comment on above: Performed By: #### C DP, HCG, CP, CRP, LIP, MG, SED #### [facility] [address] [facility] [place] [address] Blacking Machine Operator: Reynold Madison DO Staging: NOT REPORTED Normal [facility] Comment on above: Performed By: #### C DP, HCG, CP, CRP, LIP, MG, SED #### [facility] [address] [facility] [place] [address] Blacking Machine Operator: Reynold Madison DO Comprehensive Metabolic Pane johan 08-20-2019 Albumin [Mass/Vol] 3.9 g/dL 3.5 - 5.2 g/dL [place] Albumin/Globulin [Mass ratio] NOT REPORTED [place] ALP [Catalytic activity/Vol] 67 U/L 35 - 104 U/L [place] ALT [Catalytic activity/Vol] 39 U/L High 5 - 33 U/L [place] Anion gap [Moles/Vol] 12 mmol/L 9 - 17 mmol/L [place] AST [Catalytic activity/Vol] 23 U/L <32 [place] Bilirubin Ql (U) 0.32 mg/dL 0.3 - 1.2 mg/dL [place] Bun/Cre Ratio NOT REPORTED [place] Calcium [Mass/Vol] 9.3 mg/dL 8.6 - 10. 4 mg/dL [place] Chloride [Moles/Vol] 99 mmol/L 98 - 10 7 mmol/L [place] CO2 [Moles/Vol] 26 mmol/L 20 - 31 mmol/L [place] Creatinine [Mass/Vol] 0.94 mg/dL High 0.5 - 0.9 mg/dL [place] GFR >60 >60 mL/min [place] GFR Non- >60 >60 mL/min [place] GFR/1.73 sq M predicted among non-blacks MDRD (S/P/Bld) [Vol rate/Area] [place] Comment on above: Average GFR for 40-4 9 years old: 99 mL/min/1.73sq m Chronic Kidney Disease: <60 mL/min/1.73sq m Kidney failure: <15 mL/min/1.73sq m eGFR calculated using average adult body mass. Additional eGFR calculator available at: http://www.goDog Fetch/Waze_crcl_2012.htm GFR/1.73 sq M predicted among non-blacks MDRD (S/P/Bld) [Vol rate/Area] NOT REPORTED [place] Glucose [Mass/Vol] 159 mg/dL High 70 - 99 mg/dL [place] Potassium [Moles/Vol] 4.4 mmol/L 3.7 - 5.3 mmol/L [place] Protein [Mass/Vol] 6.9 g/dL 6.4 - 8.3 g/dL [place] Sodium [Moles/Vol] 137 mmol/L 135 - 144 mmol/L [place] Urea nitrogen [Mass/Vol] 13 mg/dL 6 - 20 mg/dL [place] Drug Scr, Abuse, Uron 2019 Amphetamine(s),Ur Negative Normal NEG [facility] Comment on above: Result Comment: (Positive cutoff 1000 ng/mL) Performed By: #### U Ev, SYLWIA #### [facility] [address] [place] [address] Blacking Machine Operator: Reynold Madison DO Barbiturate(s),Ur Negative Normal NEG [facility] Comment on above: Result Comment: (Positive cutoff 200 ng/mL) Performed By: #### U A, SYLWIA #### [facility] [address] [place] [address] Blacking Machine Operator: Reynold Madison DO Base excess Calc (Bld) [Moles/Vol] Negative Normal NEG [facility] Comment on above: Result Comment: (Positive cutoff 300 ng/mL) Performed By: #### U A, SYLWIA #### [facility] [address] [place] [address] Blacking Machine Operator: Reynold Madison DO Benzodiazepine(s) Negative [facility] Comment on above: Result Comment: (Positive cutoff 200 ng/mL) Performed By: #### U A, SYLWIA #### [facility] [address] [place] [address] Blacking Machine Operator: Reynold Madison DO Cannabinoid(s),Ur Negative [facility] Comment on above: Result Comment: (Positive cutoff 50 ng/mL) Performed By: #### U A, SYLWIA #### [facility] [address] [place] [address] Blacking Machine Operator: Reynold Madison DO Interpretive Info Assay provides medical screening only. The absence of expected drug(s) and/or Normal [facility] Comment on above: Result Comment: meta bolite(s) may indicate diluted or adulterated urine, limitations of testing or timing of collection. Testing for legal purposes should be confirmed by another method. To request confirmation of test result, please call the lab within 7 days of sample submission. Performed By: #### U A, SYLWIA #### [facility] [address] [place] [address] Blacking Machine Operator: Reynold Madison DO Methadone Ql (U) Negative Normal [facility] Comment on above: Result Comment: (Positive cutoff 300 ng/mL) Performed By: #### U A, SYLWIA #### [facility] [address] [place] [address] Blacking Machine Operator: Reynold Madison DO Opiate(s), Ur Negative Normal NEG [facility] Comment on above: Result Comment: (Positive cutoff 300 ng/mL) Performed By: #### U A, SYLWIA #### [facility] [address] [place] [address] Blacking Machine Operator: Reynold Madison DO Oxycodone, Urine Negative Normal NEG [facility] Comment on above: Result Comment: (Positive cutoff 100 ng/mL) Performed By: #### U A, SYLWIA #### [facility] [address] [place] [address] Blacking Machine Operator: Reynold Madison DO Phencyclidine, Ur Negative Normal NEG [facility] Comment on above: Result Comment: (Positive cutoff 25 ng/mL) Performed By: #### U A, SYLWIA #### [facility] [address] [place] [address] Blacking Machine Operator: Reynold Madison DO Buprenorphrine, Ur NOT REPORTED Normal [facility] Comment on above: Performed By: #### U A, SYLWIA #### [facility] [address] [place] [address] Blacking Machine Operator: Reynold Madison DO MDMA, Urine NOT REPORTED Normal NEG [facility] Comment on above: Performed By: #### U A, SYLWIA #### [facility] [address] [place] [address] Blacking Machine Operator: Reynold Madison DO Methamphetamine, Ur NOT REPORTED Normal NEG [facility] Comment on above: Performed By: #### U A, SYLWIA #### [facility] [address] [place] [address] Blacking Machine Operator: Reynold Madison DO Propoxyphene,Urine NOT REPORTED Normal NEG [facility] Comment on above: Performed By: #### U A, SYLWIA #### [facility] [address] [facility] [place] [address] Blacking Machine Operator: Reynold Madisno DO Tricyclic antidepressants Screen Ql (U) NOT REPORTED Normal NEG [facility] Comment on above: Performed By: #### U A SYLWIA #### [facility] [address] [facility] [place] [address] Blacking Machine Operator: Reynold Madison DO HCG Qualitative, Serumon hCG Qual Negative NEGATIVE [place] Comment on above: Specimens with hCG l [...] 08-20-19 20 HCG Qn Negative Normal NEG [facility] Comment on above: Result Comment: Spec imens [...] HCG, CP, CRP, LIP, MG, SED #### [facility] [address] [facility] [place] [address] Blacking Machine Operator: Reynold Madison DO Lipaseon 08-20-2019 Lipase [Catalytic activity/Vol] 18 U/L Normal 13-60 [facility] Comment on above: Performed By: #### C DP, HCG, CP, CRP, LIP, MG, SED #### [facility] [address] [facility] [place] [address] Blacking Machine Operator: Reynold Madison DO Lipase [Catalytic activity/Vol] 18 U/L 13 - 60 U/L [place], [place] Magnesiumon 08-20-2019 Magnesium [Mass/Vol] 1.9 mg/dL Normal 1.6-2.6 [facility] Comment on above: Performed By: #### C DP, HCG, CP, CRP, LIP, MG, SED #### [facility] [address] [place] [address] Blacking Machine Operator: Reynold Madison DO Magnesium [Mass/Vol] 1.9 mg/dL 1.6 - 2 .6 mg/dL [facility], [place] Otheron 08-20-2019 Interpretation and review of laboratory results Abnormal [place], [place] Immature granulocytes (Bld) [#/Vol] NOT REPORTED [place] Sedimentation Rateon 020 Sedimentation Rate 19 mm Normal 0-20 [facility] Comment on above: Performed By: #### C DP, HCG, CP, CRP, LIP, MG, SED #### [facility] [address] [place] [address] Blacking Machine Operator: Reynold Madison DO Sed Rate 19 mm 0 - 20 mm [place], [place] Urinalysison 08-20-2019 Bilirubin Urine Negative NEGATIVE [facility], [place] Color, UA YELLOW YELLOW [place], [place] Glucose, Ur Negative NEGATIVE [facility] Ketones Ql (U) Negative NEGATIVE [place] Leukocyte esterase Test strip Ql (U) Negative NEGATIVE [facility] Nitrite, Urine Negative NEGATIVE [facility] pH, UA 5.5 [facility] Protein (U) [Mass/Vol] Negative NEGATIVE [facility], [place] Specific [place], UA 1.018 [facility], [place] Turbidity UA CLEAR CLEAR [facility] Urinalysis Comments Microscopic exam not performed based on chemical results unless requested in original order. [facility] Urine Hgb Negative NEGATIVE [facility] Urobilinogen, Urine Normal Normal [facility], [place] Urinalysis, Routineon 2019 Acetoacetic Acid,Ur Negative Normal NEG [facility] Comment on above: Performed By: #### U A, SYLWIA #### [facility] [address] [place] [address] Blacking Machine Operator: Reynold Madison DO Bilirubin, SemiQt,Ur Negative Normal NEG [facility] Comment on above: Performed By: #### U A, SYLWIA #### [facility] [address] [place] [address] Blacking Machine Operator: Reynold Madison DO Color (U) YELLOW Normal YEL [facility] Comment on above: Performed By: #### U A, SYLWIA #### [facility] [address] [place] [address] Blacking Machine Operator: Reynodl Madison DO Comment Microscopic exam not performed based on chemical results unless requested in Normal [facility] Comment on above: Result Comment: orig inal order. Performed By: #### U A, SYLWIA #### [facility] [address] [place] [address] Blacking Machine Operator: Reynold Madison DO Glucose Ql (U) Negative Normal NEG [facility] Comment on above: Performed By: #### U A, SYLWIA #### [facility] [address] [place] [address] Blacking Machine Operator: Reynold Madison DO Hemoglobin, Ur Negative Normal NEG [facility] Comment on above: Performed By: #### U A, SYLWIA #### [facility] [address] [place] [address] Blacking Machine Operator: Reynold Madison DO Leukocyte esterase Test strip Ql (U) Negative Normal NEG [facility] Comment on above: Performed By: #### U A, SYLWIA #### [facility] [place] [address] Blacking Machine Operator: Reynold Madison DO Nitrite,Ur Negative Normal NEG [facility] Comment on above: Performed By: #### U A, SYLWIA #### [facility] [address] [place] [address] Blacking Machine Operator: Reynold Madison DO pH (U) 5.5 [pH] Normal 5.0-8.0 [facility] Comment on above: Performed By: #### U A, SYLWIA #### [facility] [address] [place] [address] Blacking Machine Operator: Reynold Madison DO Protein Ql (U) Negative Normal NEG [facility] Comment on above: Performed By: #### U A, SYLWIA #### [facility] [address] [place] [address] Blacking Machine Operator: Reynold Madison DO Specific gravity (U) [Rel density] 1.018 Normal 1.000-1.030 [facility] Comment on above: Performed By: #### U A, SYLWIA #### [facility] [address] [place] [address] Blacking Machine Operator: Reynold Madison DO Turbidity CLEAR Normal CLEAR [facility] Comment on above: Performed By: #### U A, SYLWIA #### [facility] [address] [place] [address] Blacking Machine Operator: Reynold Madison DO Urobilinogen,Ur Normal Normal NORM [facility] Comment on above: Performed By: #### U A, SYLWIA #### [facility] [address] [place] [address] Blacking Machine Operator: Reynold Madison DO Urine Drug Screenon 08-20-19 20 Amphetamine Screen, Ur Negative NEGATIVE [place], [place] Comment on above: (Positive cutoff 1000 ng/mL) Barbiturate Screen, Ur Negative NEGATIVE [place] Comment on above: (Positive cutoff 200 ng/mL) Benzodiazepine Screen, Urine Negative NEGATIVE [place] Comment on above: (Positive cutoff 200 ng/mL) Buprenorphine Urine NOT REPORTED NEGATIVE [place], [place] Cannabinoid Scrn, Ur Negative NEGATIVE [place], [place] Comment on above: (Positive cutoff 50 ng/mL) Cocaine Metabolite, Urine Negative NEGATIVE [place] Comment on above: (Positive cutoff 300 ng/mL) MDMA, Urine NOT REPORTED NEGATIVE [place] Methadone Screen, Urine Negative NEGATIVE [place] Comment on above: (Positive cutoff 300 ng/mL) Methamphetamine, Urine NOT REPORTED NEGATIVE [place] Opiates, Urine Negative NEGATIVE [place] Comment on above: (Positive cutoff 300 ng/mL) Oxycodone Screen, Ur Negative NEGATIVE [place] Comment on above: (Positive cutoff 100 ng/mL) Phencyclidine, Urine Negative NEGATIVE [place] Comment on above: (Positive cutoff 25 ng/mL) Propoxyphene, Urine NOT REPORTED NEGATIVE [place], [place] Test Information Assay provides medical screening only. The absence of expected drug(s) and/or metabolite(s) may indicate diluted or adulterated urine, limitations of testing or timing of collection. [place], [place] Comment on above: Testing for legal pu rposes should be confirmed by another method. To request confirmation of test result, please call the lab within 7 days of sample submission. Tricyclic Antidepressants, Urine NOT REPORTED NEGATIVE [place], [place] ED Clinical Summaryon 2019 ED Clinical Summary [address] [address] ED Clinical Summary Person Information Name: Nicki Oviedo [facility] Age: 44 Years : 1975 Sex: Female PCP: Marital Status: Single Phone: Race: White Ethnicity: Not or Language: Algerian Visit Reason: Abdominal pain; Diarrhea; Diarrhea - Adult Acuity: 3 Enc Type: Emergency Med Service: Emergency Medicine Arrival: 08/12/2019 04:25:28 Discharge: 08/12/2019 04:59:00 LOS: 000 00:34 Checkin: 08/12/2019 04:25:28 Checkout: 08/12/2019 04:59:00 Dispo Type: Home or Self Care Address: [address] [place] [address] Provider Notes: Diagnosis: 1:Abdominal pain; 2:Diarrhea; 3:Crohn [...] Information: DIARRHEA, Viral (8y-Adult); Abdominal Pain, Adult AAPCC Poison Help line: . [facility] Hotline: [place] Tobacco Quit Line: [facility] ([place], [place]) [address]: [phone] [facility] ([place], [place]) [address]: [phone] [facility] [address] [place], [place]: [phone] Normal [facility] ED Note-Physicianon 08-12-19 ED Note-Physician Chief [...] Barone III, MD 08/12/19 05:15 EST Normal [facility] CBC with Diffon 06-12-2019 Abs. Basophil 0.06 k/uL Normal 0.00-0.20 [facility] Comment on above: Performed By: #### C DP, HCG, CP, LIP, IPF #### [place] [address] Blacking Machine Operator: Cooper Castro MD Abs.Imm.Granulocyte 0.05 k/uL Normal 0.00-0.30 [facility] Comment on above: Performed By: #### C DP, HCG, CP, LIP, IPF #### [place] [address] Blacking Machine Operator: Cooper Castro MD Abs.Neutrophil (Seg) 6.57 k/uL Normal 1.50-8.10 [facility] Comment on above: Performed By: #### C DP, HCG, CP, LIP, IPF #### [place] [address] Blacking Machine Operator: Cooper Castro MD Basophils/100 WBC (Bld) 1 % Normal 0-2 [facility] Comment on above: Performed By: #### C DP, HCG, CP, LIP, IPF #### [place] [address] Blacking Machine Operator: Cooper Castro MD Eosinophils (Bld) [#/Vol] 0.22 10*3/uL Normal 0.00-0.44 [facility] Comment on above: Performed By: #### C DP, HCG, CP, LIP, IPF #### [place] [address] Blacking Machine Operator: Cooper Castro MD Eosinophils/100 WBC (Bld) 2 % Normal 1-4 [facility] Comment on above: Performed By: #### C DP, HCG, CP, LIP, IPF #### [place] [address] Blacking Machine Operator: Cooper Castro MD Erythrocyte distribution width (RBC) [Ratio] 12.6 % Normal 11.8-14.4 [facility] Comment on above: Performed By: #### C DP, HCG, CP, LIP, IPF #### [address] [address] Blacking Machine Operator: Cooper Castro MD Hematocrit (Bld) [Volume fraction] 42.3 % Normal 36.3-47.1 [facility] Comment on above: Performed By: #### C DP, HCG, CP, LIP, IPF #### [address] [address] Blacking Machine Operator: Cooper Castro MD Hemoglobin (Bld) [Mass/Vol] 13.5 g/dL Normal 11.9-15.1 [facility] Comment on above: Performed By: #### C DP, HCG, CP, LIP, IPF #### [address] [address] Blacking Machine Operator: Cooper Castro MD Immature granulocytes (Bld) [#/Vol] 1 % High 0 [facility] Comment on above: Performed By: #### C DP, HCG, CP, LIP, IPF #### [address] [address] Blacking Machine Operator: Cooper Castro MD Lymphocytes (Bld) [#/Vol] 2.82 10*3/uL Normal 1.10-3.70 [facility] Comment on above: Performed By: #### C DP, HCG, CP, LIP, IPF #### [address] [address] Blacking Machine Operator: Cooper Castro MD Lymphocytes/100 WBC (Bld) 27 % Normal 24-43 [facility] Comment on above: Performed By: #### C DP, HCG, CP, LIP, IPF #### [address] [address] Blacking Machine Operator: Cooper Castro MD MCH (RBC) [Entitic mass] 29.7 pg Normal 25.2-33.5 [facility] Comment on above: Performed By: #### C DP, HCG, CP, LIP, IPF #### [address] [address] Blacking Machine Operator: Cooper Castro MD MCHC (RBC) [Mass/Vol] 31.9 g/dL Normal 28.4-34.8 [facility] Comment on above: Performed By: #### C DP, HCG, CP, LIP, IPF #### [address] [address] Blacking Machine Operator: Cooper Castro MD MCV (RBC) [Entitic vol] 93.2 fL Normal 82.6-102.9 [facility] Comment on above: Performed By: #### C DP, HCG, CP, LIP, IPF #### [place] [address] Blacking Machine Operator: Cooper Castro MD Monocytes (Bld) [#/Vol] 0.94 10*3/uL Normal 0.10-1.20 [facility] Comment on above: Performed By: #### C DP, HCG, CP, LIP, IPF #### [address] [address] Blacking Machine Operator: Cooper Castro MD Monocytes/100 WBC (Bld) 9 % Normal 3-12 [facility] Comment on above: Performed By: #### C DP, HCG, CP, LIP, IPF #### [address] [address] Blacking Machine Operator: Cooper Castro MD Neutrophil (Seg) 62 % Normal 36-65 [facility] Comment on above: Performed By: #### C DP, HCG, CP, LIP, IPF #### [address] [address] Blacking Machine Operator: Cooper Castro MD NRBC Automated 0.0 per 100 WBC Normal 0.0 [facility] Comment on above: Performed By: #### C DP, HCG, CP, LIP, IPF #### [address] [address] Blacking Machine Operator: Cooper Castro MD Platelet mean volume (Bld) [Entitic vol] 9.1 fL Normal 8.1-13.5 [facility] Comment on above: Performed By: #### C DP, HCG, CP, LIP, IPF #### [address] [address] Blacking Machine Operator: Cooper Castro MD Platelets (Bld) [#/Vol] 300 10*3/uL Normal 138-453 [facility] Comment on above: Performed By: #### C DP, HCG, CP, LIP, IPF #### [place] [address] Blacking Machine Operator: Cooper Castro MD RBC (Bld) [#/Vol] 4.54 10*6/uL Normal 3.95-5.11 [facility] Comment on above: Performed By: #### C DP, HCG, CP, LIP, IPF #### [address] [address] Blacking Machine Operator: Cooper Castro MD WBC (Bld) [#/Vol] 10.7 10*3/uL Normal 3.5-11.3 [facility] Comment on above: Performed By: #### C DP, HCG, CP, LIP, IPF #### [address] [address] Blacking Machine Operator: Cooper Castro MD Auto Diff Performed NOT REPORTED Normal [facility] Comment on above: Performed By: #### C DP, HCG, CP, LIP, IPF #### [address] [address] Blacking Machine Operator: Cooper Castro MD Platelets (Bld) [#/Vol] NOT REPORTED Normal [facility] Comment on above: Performed By: #### C DP, HCG, CP, LIP, IPF #### [address] [address] Blacking Machine Operator: Cooper Castro MD RBC morphology finding Nom (Bld) NOT REPORTED Normal [facility] Comment on above: Performed By: #### C DP, HCG, CP, LIP, IPF #### [facility] [employer] [address] [place] [address] Blacking Machine Operator: Cooper Castro MD WBC Morphology NOT REPORTED Normal [facility] Comment on above: Performed By: #### C DP, HCG, CP, LIP, IPF #### [address] [address] Blacking Machine Operator: Cooper Castro MD Comp Metabolic Profon 2018 (cont.) Normal [facility] Comment on above: Result Comment: Aver age GFR for 40-49 years old: 99 mL/min/1.73sq m Chronic Kidney Disease: <60 mL/min/1.73sq m Kidney failure: <15 mL/min/1.73sq m eGFR calculated using average adult body mass. Additional eGFR calculator available at: http://www.[employer]back.[employer]/multiple_crcl_2012.htm Performed By: #### C DP, HCG, CP, LIP, IPF #### [address] [address] Blacking Machine Operator: Cooper Castro MD Alkaline Phos 69 U/L Normal 35-104 [facility] Comment on above: Performed By: #### C DP, HCG, CP, LIP, IPF #### [facility] [employer] [address] [place] [address] Blacking Machine Operator: Cooper Castro MD Bilirubin Ql (U) 0.51 mg/dL Normal 0.3-1.2 [facility] Comment on above: Performed By: #### C DP, HCG, CP, LIP, IPF #### [address] [address] Blacking Machine Operator: Cooper Castro MD GFR, Amer >60 Normal >60 [facility] Comment on above: Performed By: #### C DP, HCG, CP, LIP, IPF #### [address] [address] Blacking Machine Operator: Cooper Castro MD GFR,non Amer >60 Normal >60 [facility] Comment on above: Performed By: #### C DP, HCG, CP, LIP, IPF #### [address] [address] Blacking Machine Operator: Cooper Castro MD BUN/CRE Ratio NOT REPORTED Normal - [facility] Comment on above: Performed By: #### C DP, HCG, CP, LIP, IPF #### [address] [address] Blacking Machine Operator: Cooper Castro MD Staging: NOT REPORTED Normal [facility] Comment on above: Performed By: #### C DP, HCG, CP, LIP, IPF #### [address] [address] Blacking Machine Operator: Cooper Castro MD HCG, ,Urineon 06-12 Beta HCG ( test) Ql (U) Negative Normal NEG [facility] Comment on above: Result Comment: Spec imens [...] C DP, HCG, CP, LIP, IPF #### [address] [address] Blacking Machine Operator: Cooper Castro MD Urinalysis, Routineon 2018 Acetoacetic Acid,Ur Negative Normal NEG [facility] Comment on above: Performed By: #### C DP, HCG, CP, LIP, IPF #### [address] [address] Blacking Machine Operator: Cooper Castro MD Bilirubin, SemiQt,Ur Negative Normal NEG [facility] Comment on above: Performed By: #### C DP, HCG, CP, LIP, IPF #### [address] [address] Blacking Machine Operator: Cooper Castro MD Color (U) YELLOW Normal YEL [facility] Comment on above: Performed By: #### C DP, HCG, CP, LIP, IPF #### [address] [address] Blacking Machine Operator: Cooper Castro MD Comment Microscopic exam not performed based on chemical results unless requested in Normal [facility] Comment on above: Result Comment: orig inal order. Performed By: #### C DP, HCG, CP, LIP, IPF #### [address] [address] Blacking Machine Operator: Cooper Castro MD Glucose Ql (U) Negative Normal NEG [facility] Comment on above: Performed By: #### C DP, HCG, CP, LIP, IPF #### [address] [address] Blacking Machine Operator: Cooper Castro MD Hemoglobin, Ur Negative Normal NEG [facility] Comment on above: Performed By: #### C DP, HCG, CP, LIP, IPF #### [address] [address] Blacking Machine Operator: Cooper Castro MD Leukocyte esterase Test strip Ql (U) Negative Normal NEG [facility] Comment on above: Performed By: #### C DP, HCG, CP, LIP, IPF #### [address] [address] Blacking Machine Operator: Cooper Castro MD Nitrite,Ur Negative Normal NEG [facility] Comment on above: Performed By: #### C DP, HCG, CP, LIP, IPF #### [address] [address] Blacking Machine Operator: Cooper Castro MD pH (U) 5.5 [pH] Normal 5.0-8.0 [facility] Comment on above: Performed By: #### C DP, HCG, CP, LIP, IPF #### [address] [address] Blacking Machine Operator: Cooper Castro MD Protein Ql (U) Negative Normal NEG [facility] Comment on above: Performed By: #### C DP, HCG, CP, LIP, IPF #### [address] [address] Blacking Machine Operator: Cooper Castro MD Specific gravity (U) [Rel density] 1.018 Normal 1.005-1.030 [facility] Comment on above: Performed By: #### C DP, HCG, CP, LIP, IPF #### [address] [address] Blacking Machine Operator: Cooper Castro MD Turbidity CLEAR Normal CLEAR [facility] Comment on above: Performed By: #### C DP, HCG, CP, LIP, IPF #### [address] [address] Blacking Machine Operator: Cooper Castro MD Urobilinogen,Ur Normal Normal NORM [facility] Comment on above: Performed By: #### C DP, HCG, CP, LIP, IPF #### [address] [address] Blacking Machine Operator: Cooper Castro MD XR ACUTE ABD SERIES [...] Alvarado Brandon MD 06/12/19 Final result Normal [facility] XR Acute Abd Series Chest 1 VWOrdered By: Xander Lazaro on 06-12-2019 No acute cardiopulmonary process. Nonobstructed bowel-gas pattern. Small amount of stool throughout the colon. [employer] Phone: EXAMINATION: TWO XRA Y VIEWS OF [...] the colon. Right upper quadrant cholecystectomy clips. [employer] Phone: Ellis, Mhpn Incoming Radiant Results From [facility] - 06/12/2019 12:05 AM EST EXAMINATION: TWO [...] Small amount of stool throughout the colon. [employer] Phone: CBC Auto DifferentialOrdered By: Xander Lazaro on 06-11-2019 [employer]os # 0.22 adicate timeads [facility] Work Phone: Absolute Immature Granulocyte 0.05 [employer] Work Phone: Absolute Lymph # 2.[address] [facility] Work Phone: Absolute [place] # 0.94 [facility] Work Phone: Basophils (Bld) [#/Vol] 0.06 10*3/uL [employer] Phone: Basophils/100 WBC (Bld) 1 % 0 - 2 % M [facility] Phone: Differential Type NOT REPORTED [facility] Phone: Eosinophils/100 WBC (Bld) 2 % 1 - 4 % [facility] Phone: Erythrocyte distribution width (RBC) [Ratio] 12.6 % 11.8 - 14.4 % [employer] Phone: Hematocrit (Bld) [Volume fraction] 42.3 % 36.3 - 47.1 % [employer] Phone: Hemoglobin (Bld) [Mass/Vol] 13.5 g/dL 11.9 - 15.1 g/dL [employer] Phone: Immature granulocytes/100 WBC (Bld) 1 % High 0 [employer] Phone: Interpretation and review of laboratory results Abnormal [facility] Phone: Lymphocytes/100 WBC (Bld) 27 % 24 - 43 % [employer] Phone: MCH (RBC) [Entitic mass] 29.7 pg 25.2 - 33.5 pg [employer] Phone: MCHC (RBC) [Mass/Vol] 31.9 g/dL 28.4 - 34.8 g/dL [employer] Phone: MCV (RBC) [Entitic vol] 93.2 fL 82.6 - 102.9 fL [employer] Phone: Monocytes/100 WBC (Bld) 9 % 3 - 12 % M [facility] Phone: NRBC Automated 0.0 0.0 per 100 WBC [employer] Phone: Platelet Estimate NOT REPORTED [employer] Phone: Platelet mean volume (Bld) [Entitic vol] 9.1 fL 8.1 - 13.5 fL [employer] Phone: Platelets (Bld) [#/Vol] 300 10*3/uL [employer] Phone: RBC (Bld) [#/Vol] 4.54 10*6/uL 3.95 - 5.1 1 m/uL [employer] Phone: RBC morphology finding Nom (Bld) NOT REPORTED [facility] Phone: Segmented neutrophils/100 WBC (Bld) 62 % 36 - 65 % [facility] Phone: Segs [employer] 6[employer] Work Phone: WBC (Bld) [#/Vol] 10.7 10*3/uL [employer] Phone: WBC Morphology NOT REPORTED [facility] [employer] Phone: Comp Metabolic ProfOrdered B y: Xander Lazaro on 06-11-2019 Albumin [Mass/Vol] 3.5 g/dL Normal 3.5-5.2 [facility] [employer] Phone: Comment on above: Performed By: #### C DP, HCG, CP, LIP, IPF #### [employer] [address] [place] [address] Blacking Machine Operator: Cooper Castro MD Albumin/Globulin [Mass ratio] 1.0 {ratio} Normal 1.0-2.5 [facility] [employer] Phone: Comment on above: Performed By: #### C DP, HCG, CP, LIP, IPF #### [employer] [address] [place] [address] Blacking Machine Operator: Cooper Castro MD ALT [Catalytic activity/Vol] 27 U/L Normal 5-33 [facility] [employer] Phone: Comment on above: Performed By: #### C DP, HCG, CP, LIP, IPF #### [employer] [address] [place] [address] Blacking Machine Operator: Cooper Castro MD Anion gap [Moles/Vol] 12 mmol/L Normal 9-17 [facility] [employer] Phone: Comment on above: Performed By: #### C DP, HCG, CP, LIP, IPF #### [employer] [address] [place] [address] Blacking Machine Operator: Cooper Castro MD AST [Catalytic activity/Vol] 18 U/L Normal <32 [facility] [employer] Phone: Comment on above: Performed By: #### C DP, HCG, CP, LIP, IPF #### [employer] [address] [place] [address] Blacking Machine Operator: Cooper Castro MD Calcium [Mass/Vol] 8.7 mg/dL Normal 8.6-10.4 [facility] Work Phone: Comment on above: Performed By: #### C DP, HCG, CP, LIP, IPF #### [employer] [address] [place] [address] Blacking Machine Operator: Cooper Castro MD Chloride [Moles/Vol] 99 mmol/L Normal 98-107 [facility] [employer] Work Phone: Comment on above: Performed By: #### C DP, HCG, CP, LIP, IPF #### [employer] [address] [place] [address] Blacking Machine Operator: Cooper Castro MD CO2 [Moles/Vol] 22 mmol/L Normal 20-31 [facility] Work Phone: Comment on above: Performed By: #### C DP, HCG, CP, LIP, IPF #### [employer] [address] [place] [address] Blacking Machine Operator: Cooper Castro MD Creatinine [Mass/Vol] 0.67 mg/dL Normal 0.50-0.90 [facility] [employer] Work Phone: Comment on above: Performed By: #### C DP, HCG, CP, LIP, IPF #### [employer] [address] [place] [address] Blacking Machine Operator: Cooper Castro MD Glucose [Mass/Vol] 151 mg/dL High 70-99 [facility] Work Phone: Comment on above: Performed By: #### C DP, HCG, CP, LIP, IPF #### [employer] [address] [place] [address] Blacking Machine Operator: Cooper Castro MD Potassium [Moles/Vol] 3.5 mmol/L Low 3.7-5.3 [facility] [employer] Work Phone: Comment on above: Performed By: #### C DP, HCG, CP, LIP, IPF #### [facility] [address] [place] [id number] [employer]ing Machine Operator: Cooper Castro MD Protein [Mass/Vol] 7.0 g/dL Normal 6.4-8.3 [facility] Phone: Comment on above: Performed By: #### C DP, HCG, CP, LIP, IPF #### [facility] [address] [place] [address] [phone] Blacking Machine Operator: Cooper Castro MD Sodium [Moles/Vol] 133 mmol/L Low 135-144 [employer] Phone: Comment on above: Performed By: #### C DP, HCG, CP, LIP, IPF #### [facility] [address] [place] [address] [phone] [employer]ing [employer] Operator: Cooper Castro MD Urea nitrogen [Mass/Vol] 14 mg/dL Normal 6-20 [employer] Phone: Comment on above: Performed By: #### C DP, HCG, CP, LIP, IPF #### [facility] [address] [place] [address] [phone] [employer] Operator: Cooper Castro MD Comprehensive Metabolic Pane lOrdered By: Xander Lazaro on 06-11-2019 ALP [Catalytic activity/Vol] 69 U/L 35 - 104 U/L [facility] Phone: Bilirubin [Mass/Vol] 0.51 mg/dL 0.3 - 1 .2 mg/dL [facility] Phone: Bun/Cre Ratio NOT REPORTED [facility] Work Phone: GFR >60 >60 mL/min [employer] Work Phone: GFR Comment [employer] Phone: Comment on above: Average GFR for 40-4 9 years old: 99 mL/min/1.73sq m Chronic Kidney Disease: <60 mL/min/1.73sq m Kidney failure: <15 mL/min/1.73sq m eGFR calculated using average adult body mass. Additional eGFR calculator available at: http://www.goDog Fetch/multiple_crcl_2012.htm GFR Non- >60 >60 mL/min [facility] Phone: GFR Staging NOT REPORTED [facility] Work Phone: Interpretation and review of laboratory results Abnormal [employer] Work Phone: , URINEOrdered By: Xander Lazaro on 06-11-2019 Beta HCG ( test) Ql (U) Negative NEGATIVE [facility] Phone: Comment on above: Specimens with hCG [...] Lazaro on 06-11-2019 Bilirubin Urine Negative NEGATIVE [facility] Work Phone: Color, UA YELLOW YELLOW [employer] Work Phone: Glucose, Ur Negative NEGATIVE [employer] Work Phone: Ketones Ql (U) Negative NEGATIVE [employer] Work Phone: Leukocyte esterase Test strip Ql (U) Negative NEGATIVE [employer] Work Phone: Nitrite, Urine Negative NEGATIVE [employer] Work Phone: pH, UA 5.5 [facility] Phone: Protein, UA Negative NEGATIVE [employer] Work Phone: Specific [place], UA 1.018 [employer] Phone: Turbidity UA CLEAR CLEAR [facility] Phone: Urinalysis Comments Microscopic exam not performed based on chemical results unless requested in original order. [employer] Work Phone: Urine Hgb Negative NEGATIVE [facility] Phone: Urobilinogen, Urine Normal Normal [facility] Phone: CBC WITH AUTO DIFFERENTIALOr dered By: Haylee Givens on 06-08-2019 Absolute Eos # 0.08 adicate timeads [facility] Work Phone: Absolute Immature Granulocyte 0.04 [employer] Work Phone: Absolute Lymph # 2.10 [facility] Work Phone: Absolute Stephenson # 0.48 [facility] Work Phone: Basophils (Bld) [#/Vol] 0.05 10*3/uL [facility] Phone: Basophils/100 WBC (Bld) 1 % 0 - 2 % M [facility] Phone: Differential Type NOT REPORTED [facility] Phone: Eosinophils/100 WBC (Bld) 1 % 1 - 4 % [employer] Phone: Erythrocyte distribution width (RBC) [Ratio] 12.6 % 11.8 - 14.4 % [employer] Phone: Hematocrit (Bld) [Volume fraction] 41.2 % 36.3 - 47.1 % [facility] Phone: Hemoglobin (Bld) [Mass/Vol] 13.5 g/dL 11.9 - 15.1 g/dL [facility] Phone: Immature granulocytes/100 WBC (Bld) 1 % High 0 [employer] Phone: Interpretation and review of laboratory results Abnormal [facility] Phone: Lymphocytes/100 WBC (Bld) 31 % 24 - 43 % [facility] Phone: MCH (RBC) [Entitic mass] 30.1 pg 25.2 - 33.5 pg [facility] Phone: MCHC (RBC) [Mass/Vol] 32.8 g/dL 28.4 - 34.8 g/dL [facility] [employer] Phone: MCV (RBC) [Entitic vol] 92.0 fL 82.6 - 102.9 fL [facility] [employer] Work Phone: Monocytes/100 WBC (Bld) 7 % 3 - 12 % M [facility] [employer] Work Phone: NRBC Automated 0.0 0.0 per 100 WBC [facility] [employer] Phone: Platelet Estimate NOT REPORTED [facility] [employer] Phone: Platelet mean volume (Bld) [Entitic vol] 9.3 fL 8.1 - 13.5 fL [facility] [employer] Phone: Platelets (Bld) [#/Vol] 310 10*3/uL [facility] [employer] Work Phone: RBC (Bld) [#/Vol] 4.48 10*6/uL 3.95 - 5.1 1 m/uL [facility] [employer] Work Phone: RBC morphology finding Nom (Bld) NOT REPORTED [facility] [employer] Phone: Segmented neutrophils/100 WBC (Bld) 59 % 36 - 65 % [facility] [employer] Work Phone: Segs Absolute 4.10 [facility] Work Phone: WBC (Bld) [#/Vol] 6.9 10*3/uL [facility] [employer] Work Phone: WBC Morphology NOT REPORTED adicate timeads [facility] Work Phone: CBC with Diffon 06-08-2019 Abs. Basophil 0.05 k/uL Normal 0.00-0.20 [facility] Comment on above: Performed By: #### C DP, HCG, CP, LIP, IPF #### [address] [address] Blacking Machine Operator: Cooper Castro MD Abs.Imm.Granulocyte 0.04 k/uL Normal 0.00-0.30 [facility] Comment on above: Performed By: #### C DP, HCG, CP, LIP, IPF #### [place] [address] [employer] Operator: Cooper Castro MD Abs.Neutrophil (Seg) 4.10 k/uL Normal 1.50-8.10 [facility] Comment on above: Performed By: #### C DP, HCG, CP, LIP, IPF #### [place] [address] [employer] Operator: Cooper Castro MD Basophils/100 WBC (Bld) 1 % Normal 0-2 [facility] Comment on above: Performed By: #### C DP, HCG, CP, LIP, IPF #### [place] [address] [employer] Operator: Cooper Castro MD Eosinophils (Bld) [#/Vol] 0.08 10*3/uL Normal 0.00-0.44 [facility] Comment on above: Performed By: #### C DP, HCG, CP, LIP, IPF #### [place] [address] [employer] Operator: Cooper Castro MD Eosinophils/100 WBC (Bld) 1 % Normal 1-4 [facility] Comment on above: Performed By: #### C DP, HCG, CP, LIP, IPF #### [place] [address] [employer] Operator: Cooper Castro MD Erythrocyte distribution width (RBC) [Ratio] 12.6 % Normal 11.8-14.4 [facility] Comment on above: Performed By: #### C DP, HCG, CP, LIP, IPF #### [address] [address] Blacking Machine Operator: Cooper Castro MD Hematocrit (Bld) [Volume fraction] 41.2 % Normal 36.3-47.1 [facility] Comment on above: Performed By: #### C DP, HCG, CP, LIP, IPF #### [place] [address] [employer] Operator: Cooper Castro MD Hemoglobin (Bld) [Mass/Vol] 13.5 g/dL Normal 11.9-15.1 [facility] Comment on above: Performed By: #### C DP, HCG, CP, LIP, IPF #### [place] [address] [employer] Operator: Cooper Castro MD Immature granulocytes (Bld) [#/Vol] 1 % High 0 [facility] Comment on above: Performed By: #### C DP, HCG, CP, LIP, IPF #### [place] [address] [employer]ing Machine Operator: Cooper Castro MD Lymphocytes (Bld) [#/Vol] 2.10 10*3/uL Normal 1.10-3.70 [facility] Comment on above: Performed By: #### C DP, HCG, CP, LIP, IPF #### [place] [address] [employer]ing Machine Operator: Cooper Castro MD Lymphocytes/100 WBC (Bld) 31 % Normal 24-43 [facility] Comment on above: Performed By: #### C DP, HCG, CP, LIP, IPF #### [place] [address] [employer]ing Machine Operator: Cooper Castro MD MCH (RBC) [Entitic mass] 30.1 pg Normal 25.2-33.5 [facility] Comment on above: Performed By: #### C DP, HCG, CP, LIP, IPF #### [address] [address] [employer]ing Machine Operator: Cooper Castro MD MCHC (RBC) [Mass/Vol] 32.8 g/dL Normal 28.4-34.8 [facility] Comment on above: Performed By: #### C DP, HCG, CP, LIP, IPF #### [place] [address] Blacking Machine Operator: Cooper Castro MD MCV (RBC) [Entitic vol] 92.0 fL Normal 82.6-102.9 [facility] Comment on above: Performed By: #### C DP, HCG, CP, LIP, IPF #### [place] [address] [employer]ing Machine Operator: Cooper Castro MD Monocytes (Bld) [#/Vol] 0.48 10*3/uL Normal 0.10-1.20 [facility] Comment on above: Performed By: #### C DP, HCG, CP, LIP, IPF #### [place] [address] Blacking Machine Operator: Cooper Castro MD Monocytes/100 WBC (Bld) 7 % Normal 3-12 [facility] Comment on above: Performed By: #### C DP, HCG, CP, LIP, IPF #### [place] [address] Blacking Machine Operator: Cooper Castro MD Neutrophil (Seg) 59 % Normal 36-65 [facility] Comment on above: Performed By: #### C DP, HCG, CP, LIP, IPF #### [place] [address] Blacking Machine Operator: Cooper Castro MD NRBC Automated 0.0 per 100 WBC Normal 0.0 [facility] Comment on above: Performed By: #### C DP, HCG, CP, LIP, IPF #### [address] [address] Blacking Machine Operator: Cooper Castro MD Platelet mean volume (Bld) [Entitic vol] 9.3 fL Normal 8.1-13.5 [facility] Comment on above: Performed By: #### C DP, HCG, CP, LIP, IPF #### [address] [address] Blacking Machine Operator: Cooper Castro MD Platelets (Bld) [#/Vol] 310 10*3/uL Normal 138-453 [facility] Comment on above: Performed By: #### C DP, HCG, CP, LIP, IPF #### [address] [address] Blacking Machine Operator: Cooper Castro MD RBC (Bld) [#/Vol] 4.48 10*6/uL Normal 3.95-5.11 [facility] Comment on above: Performed By: #### C DP, HCG, CP, LIP, IPF #### [address] [address] Blacking Machine Operator: Cooper Castro MD WBC (Bld) [#/Vol] 6.9 10*3/uL Normal 3.5-11.3 [facility] Comment on above: Performed By: #### C DP, HCG, CP, LIP, IPF #### [address] [address] Blacking Machine Operator: Cooper Castro MD Auto Diff Performed NOT REPORTED Normal [facility] Comment on above: Performed By: #### C DP, HCG, CP, LIP, IPF #### [address] [address] Blacking Machine Operator: Cooper Castro MD Platelets (Bld) [#/Vol] NOT REPORTED Normal [facility] Comment on above: Performed By: #### C DP, HCG, CP, LIP, IPF #### [facility] [employer] [address] [place] [address] Blacking Machine Operator: Cooper Castro MD RBC morphology finding Nom (Bld) NOT REPORTED Normal [facility] Comment on above: Performed By: #### C DP, HCG, CP, LIP, IPF #### [facility] [employer] [address] [place] [address] Blacking Machine Operator: Cooper Castro MD WBC Morphology NOT REPORTED Normal [facility] Comment on above: Performed By: #### C DP, HCG, CP, LIP, IPF #### [facility] [employer] [address] [place] [id number] Blacking Machine Operator: Cooper Castro MD Comp Metabolic Profon 2018 AST [Catalytic activity/Vol] 18 U/L Normal <32 [facility] Comment on above: Performed By: #### C DP, HCG, CP, LIP, IPF #### [facility] [employer] [address] [place] [address] [employer]ing Machine Operator: Cooper Castro MD (cont.) Normal [facility] Comment on above: Result Comment: Aver age GFR for 40-49 years old: 99 mL/min/1.73sq m Chronic Kidney Disease: <60 mL/min/1.73sq m Kidney failure: <15 mL/min/1.73sq m eGFR calculated using average adult body mass. Additional eGFR calculator available at: http://www.Loopback.com/multiple_crcl_2012.htm Performed By: #### C DP, HCG, CP, LIP, IPF #### [facility] [employer] [address] [place] [id number] Blacking Machine Operator: Cooper Castro MD Albumin [Mass/Vol] 3.6 g/dL Normal 3.5-5.2 [facility] Comment on above: Performed By: #### C DP, HCG, CP, LIP, IPF #### [facility] [address] [place] [address] Blacking Machine Operator: Cooper Castro MD Albumin/Globulin [Mass ratio] 1.1 {ratio} Normal 1.0-2.5 [facility] Comment on above: Performed By: #### C DP, HCG, CP, LIP, IPF #### [address] [address] Blacking Machine Operator: Cooper Castro MD Alkaline Phos 65 U/L Normal 35-104 [facility] Comment on above: Performed By: #### C DP, HCG, CP, LIP, IPF #### [address] [address] Blacking Machine Operator: Cooper Castro MD ALT [Catalytic activity/Vol] 29 U/L Normal 5-33 [facility] Comment on above: Performed By: #### C DP, HCG, CP, LIP, IPF #### [address] [address] Blacking Machine Operator: Cooper Castro MD Anion gap [Moles/Vol] 11 mmol/L Normal 9-17 [facility] Comment on above: Performed By: #### C DP, HCG, CP, LIP, IPF #### [address] [address] Blacking Machine Operator: Cooper Castro MD Bilirubin Ql (U) 0.43 mg/dL Normal 0.3-1.2 [facility] Comment on above: Performed By: #### C DP, HCG, CP, LIP, IPF #### [address] [address] Blacking Machine Operator: Cooper Castro MD Calcium [Mass/Vol] 9.0 mg/dL Normal 8.6-10.4 [facility] Comment on above: Performed By: #### C DP, HCG, CP, LIP, IPF #### [address] [address] Blacking Machine Operator: Cooper Castro MD Chloride [Moles/Vol] 101 mmol/L Normal 98-107 [facility] Comment on above: Performed By: #### C DP, HCG, CP, LIP, IPF #### [address] [address] Blacking Machine Operator: Cooper Castro MD CO2 [Moles/Vol] 24 mmol/L Normal 20-31 [facility] Comment on above: Performed By: #### C DP, HCG, CP, LIP, IPF #### [address] [address] Blacking Machine Operator: Cooper Castro MD Creatinine [Mass/Vol] 0.78 mg/dL Normal 0.50-0.90 [facility] Comment on above: Performed By: #### C DP, HCG, CP, LIP, IPF #### [address] [address] Blacking Machine Operator: Cooper Castro MD GFR, Amer >60 Normal >60 [facility] Comment on above: Performed By: #### C DP, HCG, CP, LIP, IPF #### [address] [address] Blacking Machine Operator: Cooper Castro MD GFR,non Amer >60 Normal >60 [facility] Comment on above: Performed By: #### C DP, HCG, CP, LIP, IPF #### [address] [address] Blacking Machine Operator: Cooper Castro MD Glucose [Mass/Vol] 172 mg/dL High 70-99 [facility] Comment on above: Performed By: #### C DP, HCG, CP, LIP, IPF #### [facility] [employer] [address] [place] [address] Blacking Machine Operator: Cooper Castro MD Potassium [Moles/Vol] 3.8 mmol/L Normal 3.7-5.3 [facility] Comment on above: Performed By: #### C DP, HCG, CP, LIP, IPF #### [facility] [employer] [address] [place] [address] Blacking Machine Operator: Cooper Castro MD Protein [Mass/Vol] 6.8 g/dL Normal 6.4-8.3 [facility] Comment on above: Performed By: #### C DP, HCG, CP, LIP, IPF #### [facility] [employer] [address] [place] [address] Blacking Machine Operator: Cooper Castro MD Sodium [Moles/Vol] 136 mmol/L Normal 135-144 [facility] Comment on above: Performed By: #### C DP, HCG, CP, LIP, IPF #### [address] [address] Blacking Machine Operator: Cooper Castro MD Urea nitrogen [Mass/Vol] 10 mg/dL Normal -20 [facility] Comment on above: Performed By: #### C DP, HCG, CP, LIP, IPF #### [facility] [employer] [address] [place] [address] Blacking Machine Operator: Cooper Castro MD BUN/CRE Ratio NOT REPORTED Normal - [facility] Comment on above: Performed By: #### C DP, HCG, CP, LIP, IPF #### [facility] [employer] [address] [place] [address] Blacking Machine Operator: Cooper Castro MD Staging: NOT REPORTED Normal [facility] Comment on above: Performed By: #### C DP, HCG, CP, LIP, IPF #### [facility] [employer] [address] [place] [address] Blacking Machine Operator: Cooper Castro MD Comprehensive Metabolic Pane lOrdered By: Haylee Givens on 06-08-2019 Albumin [Mass/Vol] 3.6 g/dL 3.5 - 5.2 g/dL [employer] Phone: Albumin/Globulin [Mass ratio] 1.1 {ratio} [facility] Phone: ALP [Catalytic activity/Vol] 65 U/L 35 - 104 U/L [facility] Phone: ALT [Catalytic activity/Vol] 29 U/L 5 - 33 U/L [facility] Phone: Anion gap [Moles/Vol] 11 mmol/L 9 - 17 mmol/L [facility] Phone: AST [Catalytic activity/Vol] 18 U/L <32 [facility] Phone: Bilirubin [Mass/Vol] 0.43 mg/dL 0.3 - 1 .2 mg/dL [facility] Phone: Bun/Cre Ratio NOT REPORTED [employer] Work Phone: Calcium [Mass/Vol] 9.0 mg/dL 8.6 - 10. 4 mg/dL [facility] Phone: Chloride [Moles/Vol] 101 mmol/L 98 - 10 7 mmol/L [facility] Phone: CO2 [Moles/Vol] 24 mmol/L 20 - 31 mmol/L [facility] Phone: Creatinine [Mass/Vol] 0.78 mg/dL 0.5 - 0.9 mg/dL [facility] Phone: GFR >60 >60 mL/min [employer] Phone: GFR Comment [employer] Phone: Comment on above: Average GFR for 40-4 9 years old: 99 mL/min/1.73sq m Chronic Kidney Disease: <60 mL/min/1.73sq m Kidney failure: <15 mL/min/1.73sq m eGFR calculated using average adult body mass. Additional eGFR calculator available at: http://www.Loopback.[employer]/multiple_crcl_2012.htm GFR Non- >60 >60 mL/min [facility] Phone: GFR Staging NOT REPORTED [employer] Work Phone: Glucose [Mass/Vol] 172 mg/dL High 70 - 99 mg/dL [facility] Phone: Interpretation and review of laboratory results Abnormal [facility] Phone: Potassium [Moles/Vol] 3.8 mmol/L 3.7 - 5.3 mmol/L [employer] Phone: Protein [Mass/Vol] 6.8 g/dL 6.4 - 8.3 g/dL [employer] Phone: Sodium [Moles/Vol] 136 mmol/L 135 - 144 mmol/L [employer] Phone: Urea nitrogen [Mass/Vol] 10 mg/dL 6 - 20 mg/dL [employer] Phone: HCG Qualitative, SerumOrdere d By: Haylee Givens on 06-08-2019 hCG Qual Negative NEGATIVE [employer] Phone: Comment on above: Specimens with hCG l evels near the threshold of the test (25 mIU/mL) may give a negative or indeterminate result. In such cases, another test should be performed with a new specimen in 48-72 hours. If early is suspected clinically in this setting, correlation with quantitative serum b-hCG level is suggested. [facility] has confirmed the use of plasma for this test. This has not been cleared or approved by the U.S. Food and Drug Administration. The FDA has determined that such clearance is not necessary. HCG Screen, Bloodon 06-08-20 19 HCG Qn Negative Normal NEG [facility] Comment on above: Result Comment: Spec imens with hCG levels near the threshold of the test (25 mIU/mL) may give a negative or indeterminate result. In such cases, another test should be performed with a new specimen in 48-72 hours. If early is suspected clinically in this setting, correlation with quantitative serum b-hCG level is suggested. [facility] has confirmed the use of plasma for this test. This has not been cleared or approved by the U.S. Food and Drug Administration. The FDA has determined that such clearance is not necessary. Performed By: #### C DP, HCG, CP, LIP, IPF #### [facility] [address] [phone] Blacking Machine Operator: Cooper Castro MD LIPASEOrdered By: Haylee greer on 06-08-2019 Lipase [Catalytic activity/Vol] 25 U/L 13 - 60 U/L [facility] [employer] Work Phone: Lipaseon 06-08-2019 Lipase [Catalytic activity/Vol] 25 U/L Normal - [facility] Comment on above: Performed By: #### C DP, HCG, CP, LIP, IPF #### [facility] [address] [place] [address] [phone] Blacking Machine Operator: Cooper Castro MD IBD sgi Diagnosticon 658 IBD sgi Diagnostic PATTERN NOT CONSISTENT WITH IBD Normal [facility] Comment on above: Result Comment: See separate report for additional information. PERFORMED AT [address] [address] Performed By: #### C DP, HCG, CP, LIP, IPF #### [facility] [address] [place] [address] [phone] Blacking Machine Operator: Cooper Castro MD Sedimentation Rateon 230 Sedimentation Rate 28 mm High 0-20 [facility] Comment on above: Performed By: #### C DP, HCG, CP, LIP, IPF #### [facility] [address] [place] [address] [phone] Blacking Machine Operator: Cooper Castro MD C-Reactive Proteinon 019 CRP [Mass/Vol] 20.3 mg/L High 0.0-5.0 [facility] Comment on above: Performed By: #### C RP, IBDSGI #### [place] [address] Blacking Machine Operator: Cooper Castro MD Cult,Urineon 11-08-2018 Cult,Urine Specimen Description .URINE Special Requests NOT REPORTED Culture NO SIGNIFICANT GROWTH Report Status FINAL 11/08/2018 Normal [facility] Comment on above: Performed By: #### U RC #### [place] [address] [employer]ing Machine Operator: Cooper Castro MD CBC with Diffon 11-07-2018 Abs. Basophil 0.04 k/uL Normal 0.00-0.20 [facility] Comment on above: Performed By: #### C DP, HCG, CP, LIP, IPF #### [place] [address] [employer] Operator: Cooper Castro MD Abs.Imm.Granulocyte 0.05 k/uL Normal 0.00-0.30 [facility] Comment on above: Performed By: #### C DP, HCG, CP, LIP, IPF #### [place] [address] [employer] Operator: Cooper Castro MD Abs.Neutrophil (Seg) 7.09 k/uL Normal 1.50-8.10 [facility] Comment on above: Performed By: #### C DP, HCG, CP, LIP, IPF #### [place] [address] [employer]ing Machine Operator: Cooper Castro MD Basophils/100 WBC (Bld) 0 % Normal 0-2 [facility] Comment on above: Performed By: #### C DP, HCG, CP, LIP, IPF #### [place] [address] [employer]ing Machine Operator: Cooper Castro MD Eosinophils (Bld) [#/Vol] 0.07 10*3/uL Normal 0.00-0.44 [facility] Comment on above: Performed By: #### C DP, HCG, CP, LIP, IPF #### [address] [address] [employer]ing [employer] Operator: Cooper Castro MD Eosinophils/100 WBC (Bld) 1 % Normal 1-4 [facility] Comment on above: Performed By: #### C DP, HCG, CP, LIP, IPF #### [place] [address] [employer] Operator: Cooper Castro MD Immature granulocytes (Bld) [#/Vol] 1 % High 0 [facility] Comment on above: Performed By: #### C DP, HCG, CP, LIP, IPF #### [place] [address] [employer] Operator: Cooper Castro MD Lymphocytes (Bld) [#/Vol] 2.61 10*3/uL Normal 1.10-3.70 [facility] Comment on above: Performed By: #### C DP, HCG, CP, LIP, IPF #### [address] [address] [employer] Operator: Cooper Castro MD Lymphocytes/100 WBC (Bld) 24 % Normal 24-43 [facility] Comment on above: Performed By: #### C DP, HCG, CP, LIP, IPF #### [place] [address] [employer] Operator: Cooper Castro MD Monocytes (Bld) [#/Vol] 0.90 10*3/uL Normal 0.10-1.20 [facility] Comment on above: Performed By: #### C DP, HCG, CP, LIP, IPF #### [address] [address] [employer] Operator: Cooper Castro MD Monocytes/100 WBC (Bld) 8 % Normal 3-12 [facility] Comment on above: Performed By: #### C DP, HCG, CP, LIP, IPF #### [address] [address] [employer] Operator: Cooper Castro MD Neutrophil (Seg) 66 % High 36-65 [facility] Comment on above: Performed By: #### C DP, HCG, CP, LIP, IPF #### [address] [address] [employer] Operator: Cooper Castro MD Erythrocyte distribution width (RBC) [Ratio] 12.8 % Normal 11.8-14.4 [facility] Comment on above: Performed By: #### C DP, HCG, CP, LIP, IPF #### [address] [address] [employer] Operator: Cooper Castro MD Hematocrit (Bld) [Volume fraction] 39.1 % Normal 36.3-47.1 [facility] Comment on above: Performed By: #### C DP, HCG, CP, LIP, IPF #### [address] [address] [employer] Operator: Cooper Castro MD Hemoglobin (Bld) [Mass/Vol] 12.7 g/dL Normal 11.9-15.1 [facility] Comment on above: Performed By: #### C DP, HCG, CP, LIP, IPF #### [address] [address] [employer] Operator: Cooper Castro MD MCH (RBC) [Entitic mass] 30.0 pg Normal 25.2-33.5 [facility] Comment on above: Performed By: #### C DP, HCG, CP, LIP, IPF #### [address] [address] [employer] Operator: Cooper Castro MD MCHC (RBC) [Mass/Vol] 32.5 g/dL Normal 28.4-34.8 [facility] Comment on above: Performed By: #### C DP, HCG, CP, LIP, IPF #### [address] [address] [employer] Operator: Cooper Castro MD MCV (RBC) [Entitic vol] 92.4 fL Normal 82.6-102.9 [facility] Comment on above: Performed By: #### C DP, HCG, CP, LIP, IPF #### [address] [address] [employer] Operator: Cooper Castro MD NRBC Automated 0.0 per 100 WBC Normal 0.0 [facility] Comment on above: Performed By: #### C DP, HCG, CP, LIP, IPF #### [address] [address] [employer] Operator: Cooper Castro MD Platelets (Bld) [#/Vol] See Reflexed IPF Result Normal 138-453 [facility] Comment on above: Performed By: #### C DP, HCG, CP, LIP, IPF #### [address] [address] [employer] Operator: Cooper Castro MD RBC (Bld) [#/Vol] 4.23 10*6/uL Normal 3.95-5.11 [facility] Comment on above: Performed By: #### C DP, HCG, CP, LIP, IPF #### [address] [address] [employer] Operator: Cooper Castro MD WBC (Bld) [#/Vol] 10.8 10*3/uL Normal 3.5-11.3 [facility] Comment on above: Performed By: #### C DP, HCG, CP, LIP, IPF #### [address] [address] [employer] Operator: Cooper Castro MD Auto Diff Performed NOT REPORTED Normal [facility] Comment on above: Performed By: #### C DP, HCG, CP, LIP, IPF #### [address] [address] [employer] Operator: Cooper Castro MD Platelet mean volume (Bld) [Entitic vol] NOT REPORTED Normal 8.1-13.5 [facility] Comment on above: Performed By: #### C DP, HCG, CP, LIP, IPF #### [address] [address] [employer] Operator: Cooper Castro MD Platelets (Bld) [#/Vol] NOT REPORTED Normal [facility] Comment on above: Performed By: #### C DP, HCG, CP, LIP, IPF #### [address] [address] [employer] Operator: Cooper Castro MD RBC morphology finding Nom (Bld) NOT REPORTED Normal [facility] Comment on above: Performed By: #### C DP, HCG, CP, LIP, IPF #### [address] [address] [employer] Operator: Cooper Castro MD WBC Morphology NOT REPORTED Normal [facility] Comment on above: Performed By: #### C DP, HCG, CP, LIP, IPF #### [address] [address] Blacking Machine Operator: Cooper Castro MD CT ABDOMEN PELVIS WO [...] Amy Hester MD 11/07/18 Final result Normal [facility] Comp Metabolic Profon 2018 (cont.) Normal [facility] Comment on above: Result Comment: Aver age GFR for 40-49 years old: 99 mL/min/1.73sq m Chronic Kidney Disease: <60 mL/min/1.73sq m Kidney failure: <15 mL/min/1.73sq m eGFR calculated using average adult body mass. Additional eGFR calculator available at: http://www.[employer]/multiple_crcl_2012.htm Performed By: #### C DP, HCG, CP, LIP, IPF #### [employer] [address] [place] [address] [id number] [employer] Operator: Cooper Castro MD Albumin [Mass/Vol] 3.8 g/dL Normal 3.5-5.2 [facility] Comment on above: Performed By: #### C DP, HCG, CP, LIP, IPF #### [employer] [address] [place] [address] [employer] Operator: Cooper Castro MD Albumin/Globulin [Mass ratio] 1.3 {ratio} Normal 1.0-2.5 [facility] Comment on above: Performed By: #### C DP, HCG, CP, LIP, IPF #### [address] [address] [employer] Operator: Cooper Castro MD Alkaline Phos 86 U/L Normal 35-104 [facility] Comment on above: Performed By: #### C DP, HCG, CP, LIP, IPF #### [address] [address] [employer] Operator: Cooper Castro MD ALT [Catalytic activity/Vol] 26 U/L Normal 5-33 [facility] Comment on above: Performed By: #### C DP, HCG, CP, LIP, IPF #### [address] [address] [employer] Operator: Cooper Castro MD Anion gap [Moles/Vol] 9 mmol/L Normal 9-17 [facility] Comment on above: Performed By: #### C DP, HCG, CP, LIP, IPF #### [address] [address] [employer] Operator: Cooper Castro MD AST [Catalytic activity/Vol] 17 U/L Normal <32 [facility] Comment on above: Performed By: #### C DP, HCG, CP, LIP, IPF #### [address] [address] [employer] Operator: Cooper Castro MD Bilirubin Ql (U) 0.32 mg/dL Normal 0.3-1.2 [facility] Comment on above: Performed By: #### C DP, HCG, CP, LIP, IPF #### [address] [address] [employer] Operator: Cooper Castro MD Calcium [Mass/Vol] 9.1 mg/dL Normal 8.6-10.4 [facility] Comment on above: Performed By: #### C DP, HCG, CP, LIP, IPF #### [facility] [employer] [address] [place] [address] [employer] Operator: Cooper Castro MD Chloride [Moles/Vol] 99 mmol/L Normal 98-107 [facility] Comment on above: Performed By: #### C DP, HCG, CP, LIP, IPF #### [address] [address] [employer] Operator: Cooper Castro MD CO2 [Moles/Vol] 27 mmol/L Normal 20-31 [facility] Comment on above: Performed By: #### C DP, HCG, CP, LIP, IPF #### [address] [address] [employer] Operator: Cooper Castro MD Creatinine [Mass/Vol] 1.02 mg/dL High 0.50-0.90 [facility] Comment on above: Performed By: #### C DP, HCG, CP, LIP, IPF #### [address] [address] [employer] Operator: Cooper Castro MD GFR, Amer >60 Normal >60 [facility] Comment on above: Performed By: #### C DP, HCG, CP, LIP, IPF #### [address] [address] [employer] Operator: Cooper Castro MD GFR,non Amer 60 mL/min Low >60 [facility] Comment on above: Performed By: #### C DP, HCG, CP, LIP, IPF #### [address] [address] [employer] Operator: Cooper Castro MD Glucose [Mass/Vol] 118 mg/dL High 70-99 [facility] Comment on above: Performed By: #### C DP, HCG, CP, LIP, IPF #### [facility] [address] [place] [address] [employer] Operator: Cooper Castro MD Potassium [Moles/Vol] 4.2 mmol/L Normal 3.7-5.3 [facility] Comment on above: Performed By: #### C DP, HCG, CP, LIP, IPF #### [address] [address] [employer] Operator: Cooper Castro MD Protein [Mass/Vol] 6.7 g/dL Normal 6.4-8.3 [facility] Comment on above: Performed By: #### C DP, HCG, CP, LIP, IPF #### [address] [address] [employer] Operator: Cooper Castro MD Sodium [Moles/Vol] 135 mmol/L Normal 135-144 [facility] Comment on above: Performed By: #### C DP, HCG, CP, LIP, IPF #### [address] [address] [employer] Operator: Cooper Castro MD Urea nitrogen [Mass/Vol] 12 mg/dL Normal - [facility] Comment on above: Performed By: #### C DP, HCG, CP, LIP, IPF #### [address] [address] [employer] Operator: Cooper Castro MD BUN/CRE Ratio NOT REPORTED Normal - [facility] Comment on above: Performed By: #### C DP, HCG, CP, LIP, IPF #### [facility] [employer] [address] [place] [address] [employer] Operator: Cooper Castro MD Staging: NOT REPORTED Normal [facility] Comment on above: Performed By: #### C DP, HCG, CP, LIP, IPF #### [facility] [employer] [address] [place] [address] [employer] Operator: Cooper Castro MD HCG Screen, Bloodon 11-08-19 19 HCG Qn Negative Normal NEG [facility] Comment on above: Result Comment: Spec imens with hCG levels near the threshold of the test (25 mIU/mL) may give a negative or indeterminate result. In such cases, another test should be performed with a new specimen in 48-72 hours. If early is suspected clinically in this setting, correlation with quantitative serum b-hCG level is suggested. [facility] has confirmed the use of plasma for this test. This has not been cleared or approved by the U.S. Food and Drug Administration. The FDA has determined that such clearance is not necessary. Performed By: #### C DP, HCG, CP, LIP, IPF #### [address] [address] [employer] Operator: Cooper Castro MD Lipaseon 11-07-2018 Lipase [Catalytic activity/Vol] 33 U/L Normal 13-60 [facility] Comment on above: Performed By: #### C DP, HCG, CP, LIP, IPF #### [address] [address] [employer] Operator: Cooper Castro MD PLT, Immature Fract.on 11-07 Platelet, Fluoresc. Platelet clumps present, count appears adequate. Normal 138-453 [facility] Comment on above: Result Comment: ORDE RED BY LAB Performed By: #### C DP, HCG, CP, LIP, IPF #### [facility] [employer] [address] [place] [address] [employer] Operator: Cooper Castro MD PLT, Immature Fract. NOT REPORTED Normal 1.1-10.3 [facility] Comment on above: Performed By: #### C DP, HCG, CP, LIP, IPF #### [facility] [employer] [address] [place] [address] [employer] Operator: Cooper Castro MD Urinalysis w/ Microon 2018 ----- Normal [facility] Comment on above: Performed By: #### U AMIC #### [address] [address] [employer] Machine Operator: Cooper Castro MD Acetoacetic Acid,Ur Negative Normal NEG [facility] Comment on above: Performed By: #### U AMIC #### [address] [address] [employer] Machine Operator: Cooper Castro MD Bilirubin, SemiQt,Ur Negative Normal NEG [facility] Comment on above: Performed By: #### U AMIC #### [address] [address] [employer] Operator: Cooper Castro MD Casts LM.LPF (Urine sed) [#/Area] 0 TO 2 HYALINE Normal 0-8 [facility] Comment on above: Result Comment: Refe rence range defined for non-centrifuged specimen. Performed By: #### U AMIC #### [address] [address] [employer] Operator: Cooper Castro MD Color (U) YELLOW Normal YEL [facility] Comment on above: Performed By: #### U AMIC #### [address] [address] [employer] Operator: Cooper Castro MD Epithelial cells LM.HPF (Urine sed) [#/Area] 0 TO 2 Normal 0-5 [facility] Comment on above: Performed By: #### U AMIC #### [address] [address] [employer] Operator: Cooper Castro MD Glucose Ql (U) Negative Normal NEG [facility] Comment on above: Performed By: #### U AMIC #### [address] [address] [employer]ing Machine Operator: Cooper Castro MD Hemoglobin, Ur Negative Normal NEG [facility] Comment on above: Performed By: #### U AMIC #### [address] [address] [employer] Operator: Cooper Castro MD Leukocyte esterase Test strip Ql (U) Negative Normal NEG [facility] Comment on above: Performed By: #### U AMIC #### [address] [address] [employer] Operator: Cooper Castro MD Nitrite,Ur Negative Normal NEG [facility] Comment on above: Performed By: #### U AMIC #### [address] [address] [employer] Operator: Cooper Castro MD pH (U) 5.5 [pH] Normal 5.0-8.0 [facility] Comment on above: Performed By: #### U AMIC #### [address] [address] [employer] Operator: Cooper Castro MD Protein Ql (U) Negative Normal NEG [facility] Comment on above: Performed By: #### U AMIC #### [address] [address] [employer] Operator: Cooper Castro MD RBC (U) [#/Vol] None Normal 0-4 [facility] Comment on above: Result Comment: Refe rence range defined for non-centrifuged specimen. Performed By: #### U AMIC #### [address] [address] [employer] Operator: Cooper Castro MD Specific gravity (U) [Rel density] 1.023 Normal 1.005-1.030 [facility] Comment on above: Performed By: #### U AMIC #### [address] [address] [employer] Operator: Cooper Castro MD Turbidity CLEAR Normal CLEAR [facility] Comment on above: Performed By: #### U AMIC #### [address] [address] [employer] Machine Operator: Cooper Castro MD Urobilinogen,Ur Normal Normal NORM [facility] Comment on above: Performed By: #### U AMIC #### [address] [address] [employer] Machine Operator: Cooper Castro MD WBC (U) [#/Vol] None Normal 0-5 [facility] Comment on above: Performed By: #### U AMIC #### [address] [address] [employer]ing Machine Operator: Cooper Castro MD Amorphous sediment LM Ql (Urine sed) NOT REPORTED Normal NONE [facility] Comment on above: Performed By: #### U AMIC #### [address] [address] [employer] Operator: Cooper Castro MD Bacteria LM.HPF (Urine sed) [#/Area] NOT REPORTED Normal NONE [facility] Comment on above: Performed By: #### U AMIC #### [address] [address] [employer] Operator: Cooper Castro MD Crystals LM Nom (Urine sed) NOT REPORTED Normal NONE [facility] Comment on above: Performed By: #### U AMIC #### [address] [address] [employer] Operator: Cooper Castro MD Epithelial, Renal NOT REPORTED Normal 0 [facility] Comment on above: Performed By: #### U AMIC #### [address] [address] [employer]ing Machine Operator: Cooper Castro MD Mucus Strands NOT REPORTED Normal NONE [facility] Comment on above: Performed By: #### U AMIC #### [address] [place] [address] [employer] Operator: Cooper Castro MD Other Observations NOT REPORTED Normal NREQ [facility] Comment on above: Performed By: #### U AMIC #### [facility] [address] [place] [address] Black[employer] Machine Operator: Cooper Castro MD Trichomonas NOT REPORTED Normal NONE [facility] Comment on above: Performed By: #### U AMIC #### [facility] [address] [place] [address] [employer] Operator: Cooper Castro MD Yeast LM Ql (Urine sed) NOT REPORTED Normal NONE [facility] Comment on above: Performed By: #### U AMIC #### [address] [place] [address] Black[employer] Machine Operator: Cooper Castro MD XR ACUTE ABD SERIES CHEST 1 VWon 11-07-2018 XR ACUTE ABD SERIES CHEST 1 VW EXAMINATION: TWO XRAY VIEWS OF THE ABDOMEN AND SINGLE XRAY VIEW OF THE CHEST 11/07/2018 6:40 am COMPARISON: 01/31/2018. HISTORY: ORDERING SYSTEM PROVIDED HISTORY: hx of [employer] TECHNOLOGIST PROVIDED HISTORY: hx of [employer] Ordering Physician Provided Reason for Exam: hx of [employer] Acuity: Unknown Type of Exam: Unknown Acute. [...] A Ortiz MD 11/07/18 Final result Normal [facility] Vital Signs Date Time Vital Sign Value Performing Clinician Facility 09-05-2023 12:22-0400 Heart rate 72 /min [facility] 09-05-2023 12:22-0400 Respiratory rate 18 /min [facility] 09-05-2023 12:22-0400 SaO2% (BldA) [Mass fraction] 97 % [facility] 09-05-2023 12:00-0400 Diastolic blood pressure 66 mm[Hg] [facility] 09-05-2023 12:00-0400 Mean blood pressure 84 mm[Hg] [facility] 09-05-2023 12:00-0400 Respiratory rate 16 /min [facility] 09-05-2023 12:00-0400 SaO2% (BldA) [Mass fraction] 100 % [facility] 09-05-2023 12:00-0400 Systolic blood pressure 119 mm[Hg] [facility] 09-05-2023 11:27-0400 Diastolic blood pressure 85 mm[Hg] [facility] 09-05-2023 11:27-0400 Heart rate 83 /min [facility] 09-05-2023 11:27-0400 Mean blood pressure 99 mm[Hg] [facility] 09-05-2023 11:27-0400 Respiratory rate 18 /min [facility] 09-05-2023 11:27-0400 SaO2% (BldA) [Mass fraction] 99 % [facility] 09-05-2023 11:27-0400 Systolic blood pressure 127 mm[Hg] [facility] 09-05-2023 10:28-0400 Body temperature 98.24 [degF] [facility] 09-05-2023 10:28-0400 Diastolic blood pressure 74 mm[Hg] [facility] 09-05-2023 10:28-0400 Heart rate 75 /min Juanjo Espinoza [facility] 09-05-2023 10:28-0400 Systolic blood pressure 149 mm[Hg] Juanjo Espinoza [facility] 07-25-2023 13:18-0500 Body height 170.2 cm Dionysios Marinakis PA-C Work Phone: [facility] 07-25-2023 13:18-0500 Body mass index (BMI) [Ratio] 46.99 kg/m2 Dionysios Marinakis PA-C Work Phone: [facility] [employer] [facility] 07-25-2023 13:18-0500 Body weight 136.08 kg Dionysios Marinakis PA-C Work Phone: [facility] [employer] [facility] 07-25-2023 13:18-0500 Diastolic blood pressure 91 mm[Hg] Dionysios Marinakis PA-C Work Phone: [facility] [employer] [facility] 07-25-2023 13:18-0500 Heart rate 95 /min Dionysios Marinakis PA-C [facility] [employer] 07-25-2023 13:18-0500 SaO2% (BldA) [Mass fraction] 95 % Dionysios Marinakis PA-C Work Phone: [facility] [employer] [facility] 07-25-2023 13:18-0500 Systolic blood pressure 143 mm[Hg] Dionysios Marinakis PA-C Work Phone: [facility] 07-06-2023 06:42-0500 Body height 170.18 cm No Provider [facility] 07-06-2023 06:42-0500 Body mass index (BMI) [Ratio] 50.3 kg/m2 No Provider [facility] 07-06-2023 06:42-0500 Body temperature 98.1 [degF] No Provider [facility] 07-06-2023 06:42-0500 Body weight 145.77 kg No [facility] 07-06-2023 06:42-0500 Diastolic blood pressure 64 mm[Hg] No Provider [facility] 07-06-2023 06:42-0500 Heart rate 91 /min No Provider [facility] 07-06-2023 06:42-0500 Respiratory rate 16 /min No Provider [facility] 07-06-2023 06:42-0500 SaO2% (BldA) [Mass fraction] 94 % No Provider [facility] 07-06-2023 06:42-0500 Systolic blood pressure 117 mm[Hg] No Provider [facility] 03-16-2022 06:15-0400 Body temperature 97 [degF] PHYSICIAN NO [facility] 03-16-2022 06:15-0400 Diastolic blood pressure 75 mm[Hg] PHYSICIAN NO [facility] 03-16-2022 06:15-0400 Heart rate 82 /min PHYSICIAN NO [facility] 03-16-2022 06:15-0400 Respiratory rate 20 /min PHYSICIAN NO [facility] 03-16-2022 06:15-0400 SaO2% (BldA) [Mass fraction] 98 % PHYSICIAN NO [facility] 03-16-2022 06:15-0400 Systolic blood pressure 174 mm[Hg] PHYSICIAN NO [facility] 03-16-2022 04:13-0400 Body height 170.18 cm PHYSICIAN NO [facility] 03-16-2022 04:13-0400 Body weight 133.8 kg PHYSICIAN NO [facility] 12-16-2021 06:16-0400 Diastolic blood pressure 81 mm[Hg] No Pcp Required [facility] 12-16-2021 06:16-0400 Heart rate 81 /min No Pcp Required [facility] 12-16-2021 06:16-0400 Respiratory rate 18 /min No Pcp Required [facility] 12-16-2021 06:16-0400 SaO2% (BldA) [Mass fraction] 98 % No Pcp Required [facility] 12-16-2021 06:16-0400 Systolic blood pressure 174 mm[Hg] No Pcp Required [facility] 12-15-2021 18:40-0400 Diastolic blood pressure 75 mm[Hg] [facility] 12-15-2021 18:40-0400 Heart rate 86 /min [facility] 12-15-2021 18:40-0400 Respiratory rate 18 /min [facility] 12-15-2021 18:40-0400 SaO2% (BldA) [Mass fraction] 100 % [facility] 12-15-2021 18:40-0400 Systolic blood pressure 144 mm[Hg] [facility] 12-15-2021 16:07-0400 Body height 170.18 cm [facility] 12-15-2021 16:07-0400 Body mass index (BMI) [Ratio] 47.8 kg/m2 [facility] 12-15-2021 16:07-0400 Body temperature 98.3 [degF] [facility] 12-15-2021 16:07-0400 Body weight 138.6 kg [facility] 09-14-2021 20:44-0400 Body temperature 98.7 [degF] [facility] 09-14-2021 20:44-0400 Diastolic blood pressure 85 mm[Hg] [facility] 09-14-2021 20:44-0400 Heart rate 99 /min [facility] 09-14-2021 20:44-0400 Respiratory rate 18 /min [facility] 09-14-2021 20:44-0400 SaO2% (BldA) [Mass fraction] 95 % [facility] 09-14-2021 20:44-0400 Systolic blood pressure 149 mm[Hg] [facility] 09-14-2021 17:53-0400 Body height 170.18 cm [facility] 09-14-2021 17:53-0400 Body mass index (BMI) [Ratio] 47.3 kg/m2 [facility] 09-14-2021 17:53-0400 Body weight 137.1 kg [facility] 06-08-2021 06:11-0500 Body height 170.1 cm No Pcp Required [facility] 06-08-2021 06:11-0500 Body temperature 97.16 [degF] No Pcp Required [facility] 06-08-2021 06:11-0500 Body weight 136 kg [facility] 06-08-2021 06:11-0500 Diastolic blood pressure 100 mm[Hg] No Pcp Required [facility] 06-08-2021 06:11-0500 Heart rate 91 /min No Pcp Required [facility] 06-08-2021 06:11-0500 Respiratory rate 18 /min No Pcp Required [facility] 06-08-2021 06:11-0500 SaO2% (BldA) [Mass fraction] 97 % No Pcp Required [facility] 06-08-2021 06:11-0500 Systolic blood pressure 176 mm[Hg] No Pcp Required [facility] 05-30-2021 21:22-0500 Diastolic blood pressure 100 mm[Hg] No Pcp Required [facility] 05-30-2021 21:22-0500 Heart rate 96 /min No Pcp Required [facility] 05-30-2021 21:22-0500 Respiratory rate 18 /min No Pcp Required [facility] 05-30-2021 21:22-0500 SaO2% (BldA) [Mass fraction] 95 % No Pcp Required [facility] 05-30-2021 21:22-0500 Systolic blood pressure 180 mm[Hg] No Pcp Required [facility] 05-30-2021 06:05-0500 Body height 170.1 cm No Pcp Required [facility] 05-30-2021 06:05-0500 Body temperature 97.7 [degF] No Pcp Required [facility] 05-30-2021 06:05-0500 Body weight 136 kg No Pcp Required [facility] 04-09-2021 11:40-0400 Diastolic blood pressure 87 mm[Hg] No Pcp Required [facility] 04-09-2021 11:40-0400 Heart rate 90 /min [facility]-09-[facility]21 11:40-0400 Respiratory rate 18 /min No Pcp Required [facility] 04-09-2021 11:40-0400 SaO2% (BldA) [Mass fraction] 95 % No Pcp Required [facility] 04-09-2021 11:40-0400 Systolic blood pressure 145 mm[Hg] No Pcp Required [facility] 04-09-2021 07:33-0400 Body height 170.1 cm No Pcp Required [facility] 04-09-2021 07:33-0400 Body temperature 97.16 [degF] No Pcp Required [facility] 04-09-2021 07:33-0400 Body weight 136 kg No Pcp Required [facility] 08-20-2019 03:56-0500 BMI (Body Mass Index) 46.99 kg/m2 [place] 08-20-2019 03:56-0500 Body Temperature 98.2 [degF] [facility] [place] 08-20-2019 03:56-0500 Body weight 136.08 kg [place], [place] 08-20-2019 03:56-0500 BP Diastolic 95 mm[Hg] [facility] [place] 08-20-2019 03:56-0500 BP Systolic 150 mm[Hg] [place], [place] 08-20-2019 03:56-0500 Height 170.2 cm [place] 08-20-2019 03:56-0500 Pulse (Heart Rate) 92 /min [facility] [place] [facility], [place] 08-20-2019 03:56-0500 Pulse Oximetry 95 % [place], [place] 08-20-2019 03:56-0500 Respiratory Rate 16 /min [place] 06-11-2019 23:06-0500 Diastolic blood pressure 93 mm[Hg] Yoon Erazo MD Work Phone: [facility] Work Phone: 06-11-2019 23:06-0500 SaO2% (BldA) [Mass fraction] 91 % Yoon Erazo MD Work Phone: [employer] Work Phone: 06-11-2019 23:06-0500 Systolic blood pressure 143 mm[Hg] Yoon Erazo MD Work Phone: [employer] Work Phone: 06-11-2019 22:10-0500 Body height 170.2 cm Yoon Erazo MD Work Phone: [employer] Work Phone: 06-11-2019 22:10-0500 Body mass index (BMI) [Ratio] 46.99 kg/m2 Yoon Erazo MD Work Phone: [employer] Work Phone: 06-11-2019 22:10-0500 Body temperature 97.7 [degF] Yoon Erazo MD Work Phone: [employer] Work Phone: 06-11-2019 22:10-0500 Body weight 136.08 kg Yoon Erazo MD Work Phone: [employer] Work Phone: 06-11-2019 22:10-0500 Heart rate 91 /min Yoon Erazo MD Work Phone: [employer] Work Phone: 06-11-2019 22:10-0500 Respiratory rate 14 /min Yoon Erazo MD Work Phone: [facility] Work Phone: 06-08-2019 01:59-0500 Body height 170.2 cm Ruddy Braden MD [employer] Work Phone: 06-08-2019 01:59-0500 Body mass index (BMI) [Ratio] 46.99 kg/m2 Ruddy Braden MD [employer] Work Phone: 06-08-2019 01:59-0500 Body temperature 97.9 [degF] Ruddy Braden MD [facility] Phone: 06-08-2019 01:59-0500 Body weight 136.08 kg Ruddy Braden MD [facility] Phone: 06-08-2019 01:59-0500 Diastolic blood pressure 94 mm[Hg] Ruddy Braden MD [employer] Work Phone: 06-08-2019 01:59-0500 Heart rate 90 /min Ruddy Braden MD [employer] Work Phone: 06-08-2019 01:59-0500 Respiratory rate 20 /min Ruddy Braden MD [facility] Phone: 06-08-2019 01:59-0500 SaO2% (BldA) [Mass fraction] 95 % Ruddy Braden MD [facility] Phone: 06-08-2019 01:59-0500 Systolic blood pressure 164 mm[Hg] Ruddy Braden MD [facility] Phone: Encounters Encounter Date Encounter Type Care Provider Facility Start: 09-05-2023 End: 09-05-2023 Emergency department patient visit Juanjo Espinoza Facility:[facility] Start: 09-05-2023 End: 09-05-2023 Emergency department patient visit [facility] Merrill Espinoza [facility] Start: 09-02-2023 End: 09-03-2023 Emergency department patient visit CANDIDA JOHN [facility] Start: 08-16-2023 Refill Daniela Suggs LPN [facility] Comment on above: Endometriosis (Prima ry Dx) Start: 07-25-2023 End: 07-25-2023 ambulatory DIONYSIOS Beatrice BELL [facility] Start: 07-25-2023 End: 07-25-2023 Office outpatient new 45 minutes Ngozi Bell PA-C Work Phone: [facility] Comment on above: Endometriosis (Prima ry Dx); Chronic pelvic pain in female; Sacroiliitis (CMS-HCC); Lumbosacral spondylosis without myelopathy; Encounter for long-term use of opiate analgesic; Pelvic pain; Visit for screening mammogram; Dysmenorrhea Start: 07-16-2023 End: 07-17-2023 Emergency department patient visit CINDY Lai ESTHELA [facility] Start: 07-06-2023 End: 07-06-2023 Emergency department patient visit Xander Barone Facility:[facility] Start: 07-06-2023 End: 07-06-2023 Emergency department patient visit No Provider [facility] Start: 03-16-2022 End: 03-16-2022 Emergency department patient visit Huey Maharaj Jr Facility:[facility] Start: 03-16-2022 End: 03-16-2022 Emergency department patient visit PHYSICIAN LOKI NARAYAN [facility] Start: 03-16-2022 End: 03-16-[address] CORTNEY MARTINEZ Facility:[facility] Start: 01-22-2022 End: 01-22-2022 Emergency department patient visit DO Monique Cruz Facility:[facility] Start: 12-15-2021 End: 12-16-2021 Emergency department patient visit Joseph Donovan [facility] Start: 12-15-2021 End: 12-15-2021 Emergency department patient visit NON STAFF Facility:[facility] Start: 12-15-2021 End: 12-15-2021 Emergency department patient visit [facility] Start: 12-02-2021 End: 12-02-[address] CORTNEY MARTINEZ Facility:[facility] Start: 11-08-2021 End: 11-08-2021 Emergency department patient visit OLGA LIDIA Rubalcava Facility:[facility] Start: 09-14-2021 End: 09-14-2021 Emergency department patient visit [facility] Start: 06-08-2021 End: 06-08-2021 Emergency department patient visit Deidra Manyria ED Chair 02 Start: 05-30-2021 End: 05-30-2021 Emergency department patient visit Aries Merrill [facility] Consultation Start: 04-09-2021 End: 04-09-2021 Emergency department patient visit Mikael Morel [facility] 02 Start: 04-09-2021 End: 04-09-[address] DOCTOR GALLEGOS Facility: Start: 09-30-2020 End: 09-30-2020 Emergency department patient visit KRISTOPHER MARTINEZ Facility:[facility] Start: 04-03-2020 End: 04-03-2020 Emergency department patient visit KRISTOPHER MARTINEZ Facility:[facility] Start: 10-19-2019 End: 10-19-2019 Emergency department patient visit MAICO MONY Facility:[facility] Start: 10-17-2019 End: 10-17-2019 Emergency department patient visit KRISTOPHER MARTINEZ Facility:[facility] Start: 08-20-2019 End: 08-20-2019 Emergency department patient visit [facility] Start: 08-20-2019 End: 08-20-2019 Emergency department patient visit Arron Peterson Work Phone: [facility] ED Comment on above: Abdominal pain, unsp ecified abdominal location (Primary Dx) Start: 08-12-2019 End: 08-12-2019 Emergency department patient visit Xander Barone Facility:[facility] Start: 06-11-2019 End: 06-12-2019 Emergency department patient visit [facility] Start: 06-11-2019 End: 06-12-2019 Emergency department patient visit Yoon Erazo MD Work Phone: [facility] ED Comment on above: Lower abdominal pain (Primary Dx) Start: 06-08-2019 End: 06-08-2019 Emergency department patient visit [facility] Start: 06-08-2019 End: 06-08-2019 Emergency department patient visit Ruddy Braden MD [facility] ED Comment on above: Right lower quadrant abdominal pain (Primary Dx) Start: 11-07-2018 End: 11-08-2018 Patient encounter procedure [facility] Procedures Date Procedure Procedure Detail Performing Clinician Start: 05-17-2023 Microalbumin [Mass/v olume] in Urine by Test strip Ngozi Bell PA-C Work Phone: Start: 12-30-2021 Colonoscopy Ngozi Bell PA-C Work Phone: Start: 12-16-2021 End: 12-16-2021 EKG impression Marty Edwards s Start: 12-15-2021 CT of abdomen and pe lvis without contrast Start: 09-14-2021 Computed tomography of abdomen and pelvis with contrast Start: 07-09-2021 Blood count hemoglobin Comment on above: Performed By: #### C BC3 #### HEALTHCARE RECEPTIONIST: AJAY ARIAS [employer] [facility] [address] [place] [address] Start: 08-20-2019 Ct abdomen & pelvis w/contrast material [facility] Start: 08-20-2019 Drug screen class list a [facility] Start: 08-20-2019 Urnls dip stick/tabl et rgnt auto w/o microscopy [facility] Start: 08-20-2019 Assay of lipase [facility] B [facility] Start: 08-20-2019 Assay of magnesium [facility] R BHURGRI Start: 08-20-2019 Blood count complete auto&auto difrntl wbc [facility] Start: 08-20-2019 C-reactive protein AA[facility] R BHURGRI Start: 08-20-2019 Comprehensive metabo lic panel [facility] Start: 08-20-2019 Gonadotropin chorion ic qualitative [facility] Start: 08-20-2019 Sedimentation rate r bc automated [facility] Start: 08-20-2019 Ct abdomen & pelvis w/contrast material Arron Peterson Work Phone: Start: 08-20-2019 Drug screen class list a Arron Peterson Work Phone: Start: 08-20-2019 Urnls dip stick/tabl et rgnt auto w/o microscopy Arron Peterson Work Phone: Start: 08-20-2019 Assay of lipase Diego Peterson Work Phone: Start: 08-20-2019 Assay of magnesium Stella Peterson Work Phone: Start: 08-20-2019 Blood count complete [...] aqt abd w/s/e/d views 1 view ch [facility] Start: 06-12-2019 Urine test visual color cmprsn meths [facility] Start: 06-12-2019 Urnls dip stick/tabl et rgnt auto w/o microscopy [facility] Start: 06-12-2019 Blood count complete auto&auto difrntl wbc [facility] Start: 06-12-2019 Comprehensive metabo lic panel [facility] Start: 06-11-2019 Radiologic exam comp lete acute abdomen series Xander Lazaro DO Work Phone: Start: 06-11-2019 Urnls dip stick/tabl et rgnt auto w/o microscopy Xander Lazaro DO Work Phone: Start: 06-11-2019 Comprehensive metabo lic panel Xander Lazaro DO Work Phone: Start: 06-08-2019 Assay of lipase [facility] Start: 06-08-2019 Blood count complete auto&auto difrntl wbc [facility] Start: 06-08-2019 Comprehensive metabo lic panel [facility] Start: 06-08-2019 Gonadotropin chorion ic qualitative [facility] Start: 06-08-2019 Comprehensive metabo lic panel Haylee Givens MD Work Phone: Start: 11-08-2018 DISCHARGE PATIENT [facility] Start: 11-08-2018 DIET [facility] Start: 11-08-2018 [facility] Start: 11-08-2018 Extractable nuclear antigen antibody any method [facility] Start: 11-08-2018 Sedimentation rate r bc automated [facility] Start: 11-08-2018 Assay of calprotectin fecal [facility] Start: 11-08-2018 Cul bact stool aerob ic isol salmonella&shigell [facility] Start: 11-08-2018 Inf agent det nuclei c acid clostridium amp probe [facility] Start: 11-08-2018 IP CONSULT TO GI [facility] Start: 11-07-2018 FULL CODE [facility] Start: 11-07-2018 NOTIFY PHYSICIAN (SPECIFY) [facility] Start: 11-07-2018 REASON FOR NO MECHAN ICAL VTE PROPHYLAXIS [facility] Start: 11-07-2018 PATIENT STATUS (FROM ED OR OR/PROCEDURAL) [facility] Start: 11-07-2018 Ct abdomen & pelvis w/o contrast material [facility] Start: 11-07-2018 Assay of lipase [facility] Start: 11-07-2018 Blood count complete auto&auto difrntl wbc [facility] Start: 11-07-2018 Comprehensive metabo lic panel [facility] Start: 11-07-2018 Gonadotropin chorion ic qualitative [facility] Start: 11-07-2018 Reticulated platelet assay [facility] Start: 11-07-2018 Culture bacterial quanttative colony count urine [facility] Start: 11-07-2018 Urnls dip stick/tabl et reagent auto microscopy [facility] Start: 11-07-2018 VITAL SIGNS [facility] Start: 11-07-2018 Radex abd compl aqt abd w/s/e/d views 1 view ch [facility] Start: 12-23-2014 Microscopic observat ion [Identifier] in Cervix by Cyto stain Ngozi Bell PA-C Work Phone: Plan of Treatment Date Care Activity Detail Author Start: 05-16-2032 DTaP,Tdap and Td Vaccines (3 - Td or Tdap) DTaP,Tdap and Td Vaccines (3 - Td or Tdap) [facility] Start: 2027 Shingles Vaccine (1 of 2) Shingles Vaccine (1 of 2) [place] Start: 12-30-2026 Screening for malignant neoplasm of colon Colonoscopy [facility] Start: 07-25-2024 Adult BMI Screening Adult BMI Screening [facility] Start: 07-25-2024 Tobacco Screening Tobacco Screening [facility] Start: 05-17-2024 Urine screening for protein Urine Microalbumin [facility] Start: 04-04-2024 Adult BMI Follow Up Plan Adult BMI Follow Up Plan [facility] Start: 09-17-2023 End: 09-17-2023 Patient encounter procedure 09/17/2023 11:40 AM EDT Office Visit [facility] [address] [id number] Ngozi Bell PA-C [address] [place], [place] [id number] [facility] Start: 08-08-2023 End: 08-08-2023 Clinical Support 08/08/2023 3:45 PM EST Clinical Support [facility] [address] [place] [id number] Leandra Gonzalez DO [address] [place], [place] [id number] [facility] Start: 02-16-2023 COVID-19 Vaccine ( season) COVID-19 Vaccine () [facility] Start: 02-16-2023 Influenza vaccination Influenza Vaccine [facility] [employer] [facility] Start: 08-19-2020 Creatinine monitoring Creatinine monitoring [place], [place] Start: 08-19-2020 Potassium monitoring Potassium monitoring [facility] Start: 06-08-2020 Creatinine monitoring Creatinine monitoring [employer] Phone: Start: 06-08-2020 Potassium monitoring Potassium monitoring [facility] Phone: Start: 11-08-2019 Creatinine monitoring Creatinine monitoring [employer] Phone: Start: 11-08-2019 Potassium monitoring Potassium monitoring [facility] Phone: Start: 02-16-2019 Influenza vaccination Flu vaccine (#1) [facility] Phone: Start: 12-23-2017 Screening for malignant neoplasm of cervix [facility] Start: 2017 Diabetes screen Diabetes screen [facility] Phone: Start: 2017 Lipid screen Lipid screen [facility] Phone: Start: 1998 Cervical cancer screen Cervical cancer screen [employer] Phone: Start: 1995 Diabetic foot examination Diabetic Foot Exam [facility] [employer] Start: 1992 HIV screen HIV screen [facility] Phone: Start: 1989 Depression Screening Depression Screening [facility] [employer] Start: 1988 DTaP/Tdap/Td vaccine (1 - Tdap) DTaP/Tdap/Td vaccine (1 - Tdap) [facility] Phone: Start: 1977 Glaucoma screening Diabetic Ophthalmology Exam [facility] Patient Education [facility] Work Phone: Patient referral [facility] Work Phone: Immunizations Immunization Date Immunization Notes Care Provider Rola estrada 03-20-2022 influenza virus vaccine, unspecified formulation Ngozi Bell PA-C Work Phone: [facility] Payers Date Payer Category Payer Medicaid [id number] 2021 Self-pay [id number] 2019 Unknown 2018 Unknown [id number] 2018 Unknown [employer] xxxxxxxxxx 2018-Present [phone] [place] [address] xxxxxxxxxx [id number] 1977 Unknown [id number] [id number]5 1977 Unknown [id number] 2.16.840.1.936816.3.579.2.175 1977 Unknown [id number] 2.16.840.1.790500.3.579.2.175 1977 Unknown [id number] 2.16.840.1.218017.3.579.2.196 1977 Unknown [id number] 2.16.840.1.653907.3.579.2.176 1977 Unknown [id number] 2.16.840.1.722245.3.579.2.647 1977 Unknown [id number] 2.16.840.1.754269.3.579.2.647 1977 Unknown [id number] 2.16.840.1.973790.3.579.2.647 1977 Unknown [id number] 2.16.840.1.808849.3.579.2.647 1977 Unknown [id number] 2.16.840.1.122624.3.579.2.196 1977 Unknown [id number] 2.16.840.1.434057.3.579.2.196 1977 Unknown [id number] 2.16.840.1.443879.3.579.2.593 1977 Unknown [id number] 2.16.840.1.484971.3.579.2.593 1977 Unknown [id number] 2.16.840.1.534443.3.579.2.593 1977 Unknown [id number] 2.16.840.1.374981.3.579.2.1286 1977 Unknown [id number] 2.16.840.1.816764.3.579.2.1286 1977 Unknown [id number] 2.16.840.1.680224.3.579.2.1286 1977 Unknown [id number] 2.16840.1.162511.3.579.2.1286 1977 Unknown [id number] 2.840.1.068092.3.579.2.1286 1977 Unknown [id number] 2.16840.1.125826.3.579.2.727 1959 Unknown [id number] 1959 Unknown [id number] Unknown [id number] Unknown [id number] 2.16840.1.139071.3.579.2.531 Unknown [employer] [id number] Unknown [id number] [id number] Social History Date Type Detail Facility Start: 08-20-2019 End: 05-16-2022 Tobacco smoking status MAIS Never smoker [facility] Start: 08-20-2019 End: 07-25-2023 Alcohol intake Current non-drinker of alcohol (finding) [employer] Work Phone: Sex Assigned At Not on file [facility] Phone: Tobacco smoking consumption unknown [facility] Start: 1977 Sex Assigned At Female F [facility] Start: 07-06-2023 house [facility] Start: 07-06-2023 never [facility] Start: 07-06-2023 does not use [facility] Start: 05-16-2022 Tobacco use and exposure Smokeless tobacco non-user [facility] Start: 07-05-2020 End: 07-25-2023 History of Social function [facility] Start: 07-05-2020 End: 07-25-2023 Tobacco use panel [facility] Childcare Unknown [facility] Start: 08-11-2020 Gender identity Identifies as female gender (finding) [facility] Start: 08-11-2020 Sexual orientation Heterosexual (fin fara) [facility] Tobacco smoking status No Smokin g Status Entered [facility] NEGATED: Highlighted row [facility] Functional Status Date Assessment Result Facility 09-05-2023 Functional Status N/A [facility] Mental Status Date Assessment Result Facility 07-06-2023 Cognitive function Level of Cons ciousness Alert;Appropriate;Awake;Follow s Commands [facility] Work Phone: Clinical Notes 10-09-2020 to 09-05-2023 Note Date & Type Note Facility 09-05-2023 Hospital Discharg e instructions Patient Education 09/05/2023 13:49:47 Bloody Diarrhea Bloody Diarrhea Bloody diarrhea is frequent loose and watery bowel movements that contain blood. The blood can be hard to see or notice (occult). Bloody diarrhea may be caused by medical conditions such as: Ulcerative colitis. Crohn's disease. Intestinal infection. Viral gastroenteritis or bacterial gastroenteritis. Finding out why there is blood in your diarrhea is necessary so that your health care provider can prescribe the right treatment for you. Follow the instructions from your health care provider about treating the cause of your bloody diarrhea. Any type of diarrhea can make you feel weak and dehydrated. Dehydration can make you tired and thirsty, cause you to have a dry mouth, and decrease how often you urinate. Follow these instructions at home: Eating and drinking Follow these recommendations as told by your health care provider: Take an oral rehydration solution (ORS). This is an oyer-kku-lxqtheo medicine that helps return your body to its normal balance of nutrients and water. It is found at pharmacies and retail stores. Drink enough fluid to keep your urine pale yellow. ?Drink fluids such as water, ice chips, diluted fruit juice, and low-calorie sports drinks. You can also drink milk products, if desired. ?Avoid drinking fluids that contain a lot of sugar or caffeine, such as energy drinks, regular sports drinks, and soda. ?Avoid alcohol. Eat bland, hmoc-zw-ykpuxa foods in small amounts as you are able. These foods include bananas, applesauce, rice, lean meats, toast, and crackers. Avoid spicy or fatty foods. Medicines Take xfhq-vig-fyzavcp and prescription medicines only as told by your health care provider. ?Your health care provider may prescribe medicine to slow down the frequency of diarrhea or to ease stomach discomfort. If you were prescribed an antibiotic medicine, take it as told by your health care provider. Do not stop using the antibiotic even if you start to feel better. General instructions Wash your hands often using soap and water. If soap and water are not available, use a hand cascade operator. Others in the household should wash their hands as well. Hands should be washed: ?After using the toilet or changing a diaper. ?Before preparing, cooking, or serving food. ?While caring for a sick person or while visiting someone in a hospital. Rest at home while you recover. Take a warm bath to relieve any burning or pain from frequent diarrhea episodes. Watch your condition for any changes. Keep all follow-up visits as told by your health care provider. This is important. Contact a health care provider if: You have a fever. Your diarrhea gets worse. You have new symptoms. You cannot keep fluids down. You feel light-headed or dizzy. You have a headache. You have muscle cramps. Get help right away if: You have chest pain. You feel extremely weak or you faint. The blood in your diarrhea increases or turns a different color. You vomit and the vomit is bloody or looks black. You have persistent diarrhea. You have severe pain, cramping, or bloating in your abdomen. You have trouble breathing or you are breathing very quickly. Your heart is beating very quickly. Your skin feels cold and clammy. You feel confused. You have signs of dehydration, such as: ?Dark urine, very little urine, or no urine. ?Cracked lips. ?Dry mouth. ?Sunken eyes. ?Sleepiness. ?Weakness. Summary Bloody diarrhea is frequent loose and watery bowel movements that contain blood. The blood can be hard to see or notice (occult). Follow the instructions from your health care provider about treating the cause of your bloody diarrhea. Any type of diarrhea can make you feel weak and dehydrated. Follow your health care provider's recommendations for eating and drinking and for taking medicines. Contact your health care provider if your symptoms get worse. Get help right away if you have signs of dehydration. This information is not intended to replace advice given to you by your health care provider. Make sure you discuss any questions you have with your health care provider. Document Revised: 08/25/2022 Document Reviewed: 12/14/2021 [employer] Patient Education 2022 [employer]. 09/05/2023 13:49:47 Nausea and Vomiting, Adult Nausea and Vomiting, Adult Nausea is the feeling that you have an upset stomach or that you are about to vomit. As nausea gets worse, it can lead to vomiting. Vomiting is when stomach contents forcefully come out of your mouth as a result of nausea. Vomiting can make you feel weak and cause you to become dehydrated. Dehydration can make you feel tired and thirsty, cause you to have a dry mouth, and decrease how often you urinate. Older adults and people with other diseases or a weak disease-fighting system (immune system) are at higher risk for dehydration. It is important to treat your nausea and vomiting as told by your health care provider. Follow these instructions at home: Watch your symptoms for any changes. Tell your health care provider about them. Eating and drinking Take an oral rehydration solution (ORS). This is a drink that is sold at pharmacies and retail stores. Drink clear fluids slowly and in small amounts as you are able. Clear fluids include water, ice chips, low-calorie sports drinks, and fruit juice that has water added (diluted fruit juice). Eat bland, hbtg-nl-qnlpuh foods in small amounts as you are able. These foods include bananas, applesauce, rice, lean meats, toast, and crackers. Avoid fluids that contain a lot of sugar or caffeine, such as energy drinks, sports drinks, and soda. Avoid alcohol. Avoid spicy or fatty foods. General instructions Take wjul-yth-uatwjcs and prescription medicines only as told by your health care provider. Drink enough fluid to keep your urine pale yellow. Wash your hands often using soap and water for at least 20 seconds. If soap and water are not available, use hand cascade operator. Make sure that everyone in your household washes their hands well and often. Rest at home while you recover. Watch your condition for any changes. Take slow and deep breaths when you feel nauseous. Keep all follow-up visits. This is important. Contact a health care provider if: Your symptoms get worse. You have new symptoms. You have a fever. You cannot drink fluids without vomiting. Your nausea does not go away after 2 days. You feel light-headed or dizzy. You have a headache. You have muscle cramps. You have a rash. You have pain while urinating. Get help right away if: You have pain in your chest, neck, arm, or jaw. You feel extremely weak or you faint. You have persistent vomiting. You have vomit that is bright red or looks like black coffee grounds. You have bloody or black stools (feces) or stools that look like tar. You have a severe headache, a stiff neck, or both. You have severe pain, cramping, or bloating in your abdomen. You have difficulty breathing, or you are breathing very quickly. Your heart is beating very quickly. Your skin feels cold and clammy. You feel confused. You have signs of dehydration, such as: ?Dark urine, very little urine, or no urine. ?Cracked lips. ?Dry mouth. ?Sunken eyes. ?Sleepiness. ?Weakness. These symptoms may be an emergency. Get help right away. Call 911. Do not wait to see if the symptoms will go away. Do not drive yourself to the hospital. Summary Nausea is the feeling that you have an upset stomach or that you are about to vomit. As nausea gets worse, it can lead to vomiting. Vomiting can make you feel weak and cause you to become dehydrated. Follow instructions from your health care provider about eating and drinking to prevent dehydration. Take pqso-zou-nvqyyqi and prescription medicines only as told by your health care provider. Contact your health care provider if your symptoms get worse, or you have new symptoms. Keep all follow-up visits. This is important. This information is not intended to replace advice given to you by your health care provider. Make sure you discuss any questions you have with your health care provider. Document Revised: 12/09/2021 Document Reviewed: 12/09/2021 [employer]Wallet Patient Education 2022 SUNDAYTOZ. Follow Up Care 09/05/2023 10:23:21 With:Deidra Lala Address: [address] [place] [address] When:09/08/2023 12:17:09 Comments:Make sure to follow-up with your GI as instructed. Return to the emergency room if your symptoms get worse, abdominal pain gets worse, fever or any new symptoms. [facility] 09-05-2023 Evaluation + Plan note Extrac chelsie from: Title:ED Note Author:Juanjo Espinoza M.D. te:09/05/23 1. Abdominal pain (R10.9: Un specified abdominal pain) 2. Vomiting and diarrhea (R11.10: Vomiting, unspecified) Diarrhea, unspecified (R19.7: Diarrhea, unspecified) Orders: dicyclomine, 20 mg = 2 mL, Injection, IntraMuscular, Once, Stop date 09/05/23 10:51:00 EDT, STAT, Start date 09/05/23 10:51:00 EDT, 09/05/23 10:51:00 EDT diphenhydrAMINE, 25 mg = 0.5 mL, Injection, IV Push, Once, Stop date 09/05/23 11:51:00 EDT, Start date 09/05/23 11:51:00 EDT famotidine, 20 mg = 2 mL, Soln-IV, IV Push, Once, Stop date 09/05/23 10:51:00 EDT, STAT, Start date 09/05/23 10:51:00 EDT, 09/05/23 10:51:00 EDT methylPREDNISolone, 125 mg = 2 mL, Injection, IV Push, Once, Stop date 09/05/23 10:51:00 EDT, STAT, Start date 09/05/23 10:51:00 EDT, 09/05/23 10:51:00 EDT morphine, 4 mg = 1 mL, Injection, IV Push, Once, Stop date 09/05/23 11:42:00 EDT, STAT, Start date 09/05/23 11:42:00 EDT, 09/05/23 11:42:00 EDT ondansetron, 4 mg = 2 mL, Injection, IV Push, Once, Stop date 09/05/23 10:51:00 EDT, STAT, Start date 09/05/23 10:51:00 EDT, 09/05/23 10:51:00 EDT ondansetron, 4 mg = 1 tab(s), Oral, q6hr, PRN Nausea/Vomiting, # 12 tab(s), Refills(s) 0, Pharmacy: [facility]/pharmacy #[id number], 170.2, cm, 09/05/23 10:32:00 EDT, Height/Length Dosing, 146.3, kg, 09/05/23 10:32:00 EDT, Weight Dosing Sodium Chloride 0.9% intravenous solution, 1,000 mL, Soln-IV, IV, Once, Stop date 09/05/23 10:51:00 EDT, STAT, Start date 09/05/23 10:51:00 EDT, Infuse over 61, minute(s) Basic Metabolic Panel Beta hCG Qual CBC w/ Auto Diff eGFR Hepatic Function Panel Lipase Level PT & PTT UA with Cult Rflx [facility]02-29-2024 Miscellaneous Notes* Telephone Encounter - Daniela Suggs LPN - 08/16/2023 2:02 PM EST Patient called and stated her Insurance would only fill #20 tablets per 30 days. Patient would likeanother script sent for the balance. Patient was told a message would be sent to the provider to send a script for the balance. Patient verbalized understanding. documented in [facility] Telephone encounter Note* Telephone Encounter - Daniela Suggs LPN - 08/16/2023 2:02 PM EST Patient called and stated her Insurance would only fill #20 tablets per 30 days. Patient would likeanother script sent for the balance. Patient was told a message would be sent to the provider to send a script for the balance. Patient verbalized understanding. [employer]02-07-2024 History of Present illness Narrative* Ngozi Bell PA-C - 07/25/2023 1:20 PM EST Images from the original note were not included. [facility] [address] [place] [address] * [address] [place] [address] Patient ID: Nicki Oviedo 1975 Referral Source: uDke Velazquez MD Date:07/25/23 Chief Complaint: Abdominal Pain [...] a 5 on a scale of 0-10. Thepain intensity is rated 4 on the BEST [...] is right lower pelvic pain. History of en dometriosis. She also history of Crohn's disease but states that has been relatively well controlled with Humira. More recently she has been having some pain over her right SI joint. [facility] [...] gluteal area radiating to her right lateral hi p. She denies any lower extremity pain otherwise. [...] 12/30/2021 Performed by Kenroy Arias MD at [facility] Coronary angiogram Left 01/20/2022 Performed by Edgar Villalobos MD at [facility] ESOPHAGOGASTRODUODENOSCOPY ESOPHAGOGASTRODUODENOSCOPY N/A 12/30/2021 Performed by Kenroy Arias MD at [facility] LAPAROTOMY OOPHERECTOMY Right OOPHORECTOMY 05/2016 Right [...] Initiating event: Pain scale rating BEST day: 4/10 Pain scale rating WORST day: 10/10 Imaging: lumbar x-rays outside institution Mobility aids: COT: Surgeries related to pain: Previously seen by surgeon: Previous pain treatments: medications, massage, and surgery Previous PT: Previous Injections: none Failed Medications: Opioids: Ellinger and Tramadol NSAIDS: Ibuprofen Anti-Depressants: Amitriptyline Anti-Convulsants: Lyrica Work Status: The following portions of the patient's history were reviewed and updated as appropriate: allergies, current medications, past family history, past medical history, past social history, past surgicalhistory, problem list, and medication reconciliation was completed including current medication andpost discharge medication. PHYSICAL EXAM Vitals: 07/25/23 1318 [...] One has been managed relatively well by mold shifter who is transferring careto this facility. We will go ahead and [...] risk nature of this patient's pain medication regimen,frequent office visit refill appointments are medically necessary [...] Chronic pelvic pain in female 3. Sacroiliitis ([facility]) 4. Lumbosacral spondylosis without myelopathy 5. Encounter [...] appointment visit was >45 min minutes of qjfn-am-oqaf time with the patient. At least 50% of this time was spent in counseling, explanation of diagnosis, review of available imaging, planning of further management, and coordination of care. Ngozi Bell PA-C 07/25/23 1348 documented in this encounterMer[facility]12[facility] NotePre-procedure Verification and Time Out: Pre-Procedure Verification and Time Out: Procedure Locationbedside PRE-PROCEDURE Verificationcompleted TIME OUT - Final Verificationcompleted immediately prior to procedure start General Information: Anesthesia Critical Care: Non-Anesthesia Date/Time of Procedure: 30-May-2021 Post-Procedure Diagnosis: Infected abdominal wall seroma Procedure Name: Incision of drainage of infected abdominal wall seroma Findings: grossly normal anatomy Procedure performed by: mo Tongue Binder(s): none Estimated Blood Loss (mL): 5 ml [...] Completion Last Updated: 30-May-2021 15:51 by Edie Rodriges)[facility] 04-09-2021 NoteEducation Materials Gastroenterology Viral Gastroenteritis, Adult Viral gastroenteritis [...] including rotavirus and norovirus. Norovirus is the mostcommon cause in adults. You can get sick [...] 2 years old. ? Live in a fci. ? Travel on cruise ships. What are the signs or symptoms? Symptoms of this condition start suddenly 1?3 days after exposure to a virus. Symptoms may last fora few days or for as long as [...] focus of treatment is to prevent dehydration andrestore lost fluids (rehydration). This condition may be treated with: ? An oral rehydration solution (ORS) to replace important salts and minerals (electrolytes) in yourbody. Take this if told by your health [...] and water are not available, use hand cascade operator. ? Make sure that all people in your household wash their hands well and often. ? Take nzas-vhn-zlbfqez and prescription medicines only as told by [...] condition can be passed (more content not included)...[facility] 01-16-2021 NoteEducation Materials Gastroenterology Abdominal Pain, Adult Pain in [...] these instructions at home: Medicines ? Take ppsm-vvu-srfebkm and prescription medicines only as told by [...] your condition for any changes. ? Take cugl-rfu-zyetswj and prescription medicines only as told by [...] provider. Document Revised: 10/13/2019 Document Reviewed: 10/13/2019 [employer]Wallet Patient Education ? 2019 SUNDAYTOZ.[facility] [id number] Note [id number]05-09-2021 NoteEducation Materials Gastroenterology Food Choices to Help Relieve [...] with your health care provider about what dietarychoices are best for you. Grains White rice. White, Thai, or odette breads (fresh or toasted), including plain rolls, buns, or bagels. White pasta. Saltine, soda, or zarina crackers. Pretzels. Low-fiber cereal. Cooked cereals made with water (such as cornmeal, farina, or cream cereals). Plain muffins. Matzo. Brewster toast. Zwieback. Vegetables Potatoes (without the skin). [...] with your health care provider about what dietarychoices are best for you. Grains Whole grain, whole wheat, bran, or rye breads, rolls, pastas, and crackers. Wild or brown rice. Whole grain or bran cereals. Barley. Oats and oatmeal. Kerkhoven tortillas or taco shells. Granola. Popcorn. Vegetables Raw vegetables. Fried vegetables. Cabbage, broccoli, Davenport sprouts, artichokes, baked beans, beet greens, corn, kale, legumes, peas, sweet potatoes, and yams. Potato skins. Cooked spinach and cabbage. Fruits Dried fruit, including raisins and dates. Raw fruits. Stewed or dried prunes. Canned fruits with syrup. Meat and other protein foods Fried or fatty meats. Deli meats. Hedley nut butters. Nuts and seeds. Beans and lentils. Stanford. Hotdogs. Sausage. Dairy High-fat cheeses. Whole milk, chocolate milk, and beverages made with milk, such as milk shakes. Pgbe-uvt-phfj. Cream. sour cream. Ice cream. Beverages Caffeinated beverages (such as coffee, tea, soda, or energy drinks). Alcoholic beverages. Fruit juices with pulp. Prune juice. Soft drinks sweetened with high- fructose corn syrup or sugar alcohols. High (more content not included)... [facility] [id number] Note [id number]04-24-2021 NoteEducation Materials Gastroenterology Abdominal Pain, Adult Pain in [...] these instructions at home: Medicines ? Take eqwb-dmw-glprbak and prescription medicines only as told by [...] your condition for any changes. ? Take crux-xpl-xzlxmet and prescription medicines only as told by [...] 03/14/2006 Document Revised: 10/13/2019 Document Reviewed: 10/13/2019 [employer]Wallet Patient Education ? 2019 SUNDAYTOZ. Immunology Crohn's Disease Crohn's disease is a long-lasting (chronic) disease that affects the gastrointestinal (GI) tract. Crohn's disease often causes irritation and inflammation in the small intestine and the beginning of the large intestine, but it can affect any part of the GI tract. Crohn's disease is part of a group o f illnesses that are known as inflammatory bowel [...] attack healthy cells and tissues (autoimmune response). Bacteria,genes, and your environment may also play a [...] physical exam. ? Tests, (more content not included)...[facility]* Constitutional: Awake/alert/oriented x3, no distress, alert and [...] and sensation intactPsychological: Appropriate mood and behavior [facility]* Diagnosis Right lower quadrant abdominal pain- Primary Abdominal pain, right lower quadrant documented in this encounter [employer] Phone: evaluation note* Diagnosis Lower abdominal pain- Primary Abdominal pain, other specified site documented in this encounter [employer] Phone: evaluation noteNo assessment information available [facility] Work Phone: Evaluation note* Diagnosis Endometriosis- Primary Endometriosis, site unspecified Chronic pelvic pain in female Unspecified symptom associated with female genital organs Sacroiliitis ([facility]) Sacroiliitis, not elsewhere classified Lumbosacral spondylosis without myelopathy Encounter for long-term use of opiate analgesic Encounter for long-term (current) use of other medications Pelvic pain Visit for screening mammogram Dysmenorrhea documented in this encounter [facility]* Diagnosis Endometriosis- Primary Endometriosis, site unspecified documented [facility] this 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 Return to the emergency department for any new or worsening symptoms. THANK YOU!!! From [facility] On behalf of the Emergency Department staff at [facility] Emergency [facility], I would like to thank you for giving [facility] the opportunity to address your health care needs and concerns. We hope that during your visit, our service was delivered in a professional and caring manner. [facility] as we walk with you down the path to your own personal wellness. Please expect an automated phone call from so we can ask a few questions about your health and progress. Based on your answers, a clinician may call you back to offer help and instructions. documented in this encounterAdams County Regional Medical Centerwhodoyou Phone: Hospital Discharge instructions* Instructions* Xander Lazaro, DO - 06/12/2019 Focus on oral hydration, continue to take your medications as prescribed, follow-up with your GI doctor as scheduled, return to emergency department if you develop any fever, chills increasing pain, blood in your stool. documented in this encounterInvup Phone: Hospital Discharge instructions Additional Instructions Follow-up with your primary care doctor Return to the ED if develop worsening symptoms or concernsFlower Hospital Work Phone: InstructionsNot on filedocumented in this encounter [facility] [employer] SystemInstructionsNot on filedocumented in this encounter [facility] SystemProgress note No data available for this section [facility] Summary Purpose Family History No Family History [...] History Records FoundNo Family History Records Found No data available for this section No Family History Records Found Advance Directives No Advanced Directives Records FoundDocuments on File Type Date Recorded Patient Disability Rater Expl anation Advance Directives and Living Will Power of Services Rep Latest Code Status on File Code Status [...] sent through Care Everywhere. * Abdominal Pain (Algerian) documented in this encounter Assessments Diagnosis Abdominal pain, unspecified abdominal location- Primary Chief Complaint and Reason for Visit Chief Complaint abd pain,vomiting Chief Complaint Lower abd pain Chief Complaint abd pain hx crohns Chief Complaint Crohn's flare up Reason for Referral Specialty Diagnoses / Procedures Referred By Dianna martins Referred To Contact Diagnoses Endometriosis Ngozi Bell PA-C [address] [place] [address] Referral ID Status Reason Start Date Expiration Date V isits Requested Visits Authorized [id number] Pending Review 1 1 Additional Source Comments INFORMATION SOURCE (unrecogn ized section and content) DATE CREATED AUTHOR 06/13/2019 [facility] DATE CREATED AUTHOR AUTHOR'S ORGANIZ ATION 08/12/2019 [facility] DATE CREATED AUTHOR AUTHOR'S ORGANIZ ATION 08/20/2019 [facility] DATE CREATED AUTHOR AUTHOR'S ORGANIZ ATION 10/08/2020 [facility] DATE CREATED AUTHOR AUTHOR'S ORGANIZ ATION 11/11/2020 [facility] DATE CREATED AUTHOR AUTHOR'S ORGANIZ ATION 04/21/2021 [facility] DATE CREATED AUTHOR AUTHOR'S ORGANIZ ATION 09/06/2021 [facility] DATE CREATED AUTHOR AUTHOR'S ORGANIZ ATION 12/17/2021 [facility] DATE CREATED AUTHOR AUTHOR'S ORGANIZ ATION 01/22/2022 [facility] DATE CREATED AUTHOR AUTHOR'S ORGANIZ ATION 01/23/2022 [facility] DATE CREATED AUTHOR AUTHOR'S ORGANIZ ATION 02/12/2022 [facility] DATE CREATED AUTHOR AUTHOR'S ORGANIZ ATION 03/21/2022 [facility] DATE CREATED AUTHOR AUTHOR'S ORGANIZ ATION 09/27/2022 [facility] DATE CREATED AUTHOR AUTHOR'S ORGANIZ ATION 07/28/2023 [facility] DATE CREATED AUTHOR AUTHOR'S ORGANIZ ATION 09/03/2023 [facility] DATE CREATED AUTHOR AUTHOR'S ORGANIZ ATION 09/06/2023 [facility] Reason for Visit (unrecogniz ed section and [...] July 06, 2023 End: July 06, 2023 [employer] 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 [employer]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 Relationship Specialty [place] [address] [place] [id number] PCP - General Internal Medicine 08/30/17 [employer]orer Relationship Specialty Start Date End Date Duke Velazquez MD [address] [place] [address] PCP - General Internal Medicine 08/30/17 Goals (unrecognized section and content) Goals may be documented in a n alternate sectionGoals may be documented in an alternate sectionGoals may be documented in an alternate sectionGoals may be documented in an alternate sectionNot on filedocumented as of this encounterNot on filedocumented as of this encounter No data available for this section FOR RECORDS PERTAINING TO PATIENTS WHO ARE [...] BE BASED ON THE PRIMARY CLINICAL RECORDS. [employer] provides no warranty or guarantee of the accuracy or completeness of information in this document.
--- NOTE | 2023-09-15 16:56 | CT_ITS ---
The [address] [address] Patient Name: AYLIN HAYWOOD MRN: [id number] date: 1975 Sex: F Assigned Patient Location: ER Current Patient Location: Accession/Order Number: [id number] Exam Date: 09/15/2023 19:01 Report Date: 09/15/2023 19:51 At the request of: AYLIN NEW Procedure: CT abdomen pelvis w con EXAM: CT abdomen pelvis w con CLINICAL INDICATION: diarrhea h/o chrohns COMPARISON: None . TECHNIQUE: After the injection of intravenous nonionic iodinated contrast, axial CT of the abdomen, and pelvis was performed from the top of the hemidiaphragms to the inferior osseous pelvis. 2D reformats were obtained. Automatic exposure control radiation dose reduction technology was utilized. FINDINGS: Visualized portion of the lung bases are unremarkable. Probable mild diffuse hepatic steatosis. Small nonobstructing bilateral renal calculi. No hydronephrosis. The spleen, adrenal glands and pancreas are within normal limits. Gallbladder is without calcified stones. No abdominal aortic aneurysm. No enlarged lymph nodes, free fluid, or free air. Mild diverticulosis coli without evidence for diverticulitis. The bowel is without evidence of obstruction or adjacent inflammatory changes. The appendix is not visualized with certainty. Bladder unremarkable. Grossly no suspicious osseous lesions are identified. CT/CT abdomen pelvis w con IMPRESSION: 1. No significant acute abnormality identified in the abdomen or pelvis, as described above. Electronically authenticated by: ALEJANDRO JARAMILLO Date: 09/15/2023 19:51
[2023-09-15] MEDS: ONDANSETRON PF 4 MG/2 ML VIAL IV (17:13)
[2023-09-15] MEDS: 0.9 % SODIUM CHLORIDE 1,000 ML 999 ML IV (17:13)
[2023-09-15] MEDS: MORPHINE SULFATE 2 MG/ML SYRINGE IV (17:14)
[2023-09-15 17:19] LABS: Basophils Absolute Auto 0.1 10^3/uL (0.0-0.1); Basophils Percent Auto 0.6 % (0.2-2.0); Eosinophils Absolute Auto 0.1 10^3/uL (0.0-0.7); Eosinophils Percent Auto 1.2 % (0.9-7.0); Hematocrit 40.5 % (36.0-48.0); Hemoglobin 12.9 g/dL (12.0-16.0); Immature Granulocytes Abs Auto 0.05 10^3/uL (0.00-0.03); Immature Granulocytes Pct Auto 0.6 % (0.0-0.5); Lymphocytes Absolute Auto 1.5 10^3/uL (1.2-3.8); Lymphocytes Percent Auto 17.5 % (20.5-60.0); Mean Corpuscular HGB Conc 31.9 g/dL (29.9-35.2); Mean Corpuscular Hemoglobin 27.7 pg (26.7-34.0); Mean Corpuscular Volume 87.1 fL (81.0-99.0); Mean Platelet Volume 9.2 fL (9.5-13.5); Monocytes Absolute Auto 0.7 10^3/uL (0.3-0.8); Monocytes Percent Auto 8.5 % (1.7-12.0); Neutrophils Absolute Auto 6.2 10^3/uL (1.4-6.5); Neutrophils Percent Auto 71.6 % (43.0-75.0); Platelet Count 309 10^3/uL (150-450); Red Blood Count 4.65 10^6/uL (4.20-5.40); Red Cell Distribution Width 13.5 % (11.0-15.0); White Blood Count 8.6 10^3/uL (4.0-11.0)
[2023-09-15] MEDS: DIPHENHYDRAMINE HCL 50 MG/ML (1ML) VIAL 25 MG IV (17:23)
[2023-09-15 17:39] LABS: Lactate/Lactic Acid 1.8 mmol/L (0.4-2.0)
[2023-09-15 17:46] LABS: Alanine Aminotransferase 31 U/L (14-59); Albumin Globulin Ratio 0.8; Alkaline Phosphatase 84 U/L (46-116); Anion Gap 12.2; Aspartate Amino Transferase 15 U/L (15-37); BUN Creatinine Ratio 18.4; Bilirubin Total 0.5 mg/dL (0.2-1.0); Calcium 8.9 mg/dL (8.5-10.1); Carbon Dioxide 26.4 mmol/L (21.0-32.0); Chloride 103 mmol/L (98-107); Estimated GFR (African America >60 (>=60); Estimated GFR (Non-African Ame >60 (>=60); Globulin 3.6 g/dL; Glucose 221 mg/dL (74-106); Potassium 3.6 mmol/L (3.5-5.1); Sodium 138 mmol/L (136-145); Total Protein 6.6 g/dL (6.4-8.2)
[2023-09-15] MEDS: METHYLPREDNISOLONE SOD SUCC PF 125 MG/2 ML VIAL IVP (17:50)
[2023-09-15] MEDS: HYDROMORPHONE HCL 0.5 MG/0.5 ML SYRINGE IV (18:17)
[2023-09-15 18:55] LABS: Bilirubin Urine NEGATIVE (NEGATIVE); Blood Urine NEGATIVE (NEGATIVE); Clarity Urine CLEAR (CLEAR); Color Urine LT. YELLOW (YELLOW); Glucose Urine UA NEGATIVE (NEGATIVE); Ketones Urine NEGATIVE (NEGATIVE); Leukocyte Esterase Urine NEGATIVE (NEGATIVE); Nitrite Urine NEGATIVE (NEGATIVE); Protein Urine NEGATIVE (NEG/TRACE); Specific Gravity Urine 1.015 (1.005-1.025); Urobilinogen Urine 0.2 EU/dL (0.2-1.0); pH Urine 5.5 (5.0-9.0)
[2023-09-15 18:56] LABS: HCG Qualitative Urine* NEGATIVE (NEGATIVE); Urine Microscopic Indicated NO
--- NOTE | 2023-09-15 18:59 | ED_ITS ---
HPI - Abdominal Pain General Chief Complaint: Abdominal Pain Stated Complaint: abd pain Time Seen by Provider: 09/15/23 16:45 Source: patient Mode of arrival: walk-in History of Present Illness HPI narrative: 48-year-old female presents here with chief complaint of generalized abdominal pain and diarrhea. She states she has a history of Crohn's disease. She states she has generalized pain and feels miserable. she states she has had 2 to 3 days of diarrhea, with nausea typical of her Crohn's disease. She is afebrile nontoxic. Patient has no pain to palpation. She denied fever. No urinary symptoms. PSHx includes cholecystectomy, appendectomy and oophorectomy. Denied any chance of . Gets Humira injections every two weeks. Related Data Home Medications ?Medication ?Instructions ?Recorded ?Confirmed albuterol sulfate 90 mcg/actuation 2 puff inhalation Q6H PRN 01/19/23 09/15/23 aerosol inhaler (Ventolin HFA) shortness of breath or wheezing empagliflozin 25 mg tablet 25 mg PO DAILY 01/19/23 09/15/23 (Jardiance) escitalopram oxalate 10 mg tablet 10 mg PO DAILY 01/19/23 09/15/23 insulin glargine 100 unit/mL (3 32 unit subcut QAM 01/19/23 09/15/23 mL) subcutaneous pen (Lantus Solostar U-100 Insulin) insulin lispro 100 unit/mL 1 sliding scale dose subcut 01/19/23 09/15/23 subcutaneous pen (Humalog KwikPen TIDWMEAL (U-100) Insulin) lisinopril 20 mg tablet 20 mg PO DAILY 01/19/23 09/15/23 magnesium oxide 400 mg (241.3 mg 400 mg PO DAILY 01/19/23 09/15/23 magnesium) tablet oxycodone-acetaminophen 10 mg-325 1 tab PO Q8H PRN pain 01/19/23 09/15/23 mg tablet tiotropium bromide 1.25 2 puff inhalation DAILY 01/19/23 09/15/23 mcg/actuation mist for inhalation (Spiriva Respimat) tizanidine 4 mg tablet 4 mg PO TID 01/19/23 09/15/23 trazodone 150 mg tablet 150 mg PO DAILY 01/19/23 09/15/23 atorvastatin 20 mg tablet 20 mg PO QPM 07/03/23 09/15/23 azithromycin 250 mg tablet 250 mg PO DAILY 09/15/23 09/15/23 benzonatate 200 mg capsule 200 mg PO DAILY 09/15/23 09/15/23 hydrochlorothiazide 25 mg tablet 25 mg PO DAILY 09/15/23 09/15/23 methylprednisolone 4 mg tablets in 4 mg PO DAILY 09/15/23 09/15/23 a dose pack Allergies Allergy/AdvReac Type Severity Reaction Status Date / Time prochlorperazine Allergy Intermediate Shakiness Verified 08/29/23 19:22 [From Compazine] haloperidol [From Haldol] Allergy Unknown Verified 08/29/23 19:22 Iodinated Contrast Media Allergy Hives Verified 08/29/23 19:22 NSAIDS (Non-Steroidal AdvReac Severe Anaphylaxis Verified 08/29/23 19:22 Anti-Inflamma promethazine [From Phenergan] AdvReac Intermediate Shakiness Verified 08/29/23 19:22 Review of Systems ROS Narrative All Systems are negative except as noted/marked.All systems reviewed and otherwise negative [facility] Medical History (Updated 09/15/23 @ 20:00 by Nicki Basilio) Crohn's disease ?K50.90 - Crohn's disease, unspecified, without complications (ICD-10) Social History Smoking status: Never smoker Exam Narrative Exam Narrative: Nurses note and vital signs reviewed and patient is not hypoxic. General: The patient appears well and in no apparent distress. Patient is resting comfortably on cart. Skin: Warm, dry, no pallor noted. There is no rash noted. Head: Normocephalic, atraumatic Eye: Normal conjunctiva, no drainage, EOMI. PERRL Ears, Nose, Mouth, and Throat: oral mucosa is moist. Nares patent. Mouth without vesicles. Ear canals patent. Tm's without Erythema Cardiovascular: Regular Rate and Rhythm Respiratory: Patient is in no distress, no accessory muscle use, lungs are clear to auscultation, no wheezing, rales or rhonchi Back: non-tender, no CVA tenderness bilaterally to percussion. GI: Normal bowel sounds, no tenderness to palpation, no masses appreciated. No rebound, guarding, or rigidity noted. Musculoskeletal: The patient has no evidence of calf tenderness, no pitting edema, symmetrical pulses noted bilaterally Neurological: A&O x4, normal speech Psychiatric: Cooperative Constitutional Vital Signs, click to edit/add: Last Vital Signs Temp 97.6 F 09/15/23 16:42 Pulse 102 H 09/15/23 16:42 Resp 20 09/15/23 16:42 BP 161/94 H 09/15/23 16:42 Pulse Ox 95 09/15/23 16:42 O2 Del Method Room Air 09/15/23 16:42 Course Vital Signs Vital signs: Vital Signs Temperature 97.6 F 09/15/23 16:42 Pulse Rate 102 H 09/15/23 16:42 Respiratory Rate 20 09/15/23 16:42 Blood Pressure 161/94 H 09/15/23 16:42 Pulse Oximetry 95 09/15/23 16:42 Oxygen Delivery Method Room Air 09/15/23 16:42 Temperature 97.6 F 09/15/23 16:42 Pulse Rate 102 H 09/15/23 16:42 Respiratory Rate 20 09/15/23 16:42 Blood Pressure 161/94 H 09/15/23 16:42 Pulse Oximetry 95 09/15/23 16:42 Oxygen Delivery Method Room Air 09/15/23 16:42 MDM - Abdominal Pain Differential Diagnosis Differential diagnosis: Likely abdominal pain, diverticulitis and gastroenteritis Medical Records Attestation: I reviewed the patient's medical records. Lab Data Attestation: I reviewed the patient's lab results. Lab results narrative: CBC and CMP reviewed. glucose is 221, Including urinalysis are within normal limits. CT head scan with contrast was performed. We are currently awaiting results. Patient was medicated here with IV Benadryl Solu-Medrol due to contrast reaction to contrast. Patient is stable at this time. She has been medicated with fluids Zofran morphine which she stated did not help and 0.5 mg of Dilaudid. . Shows no acute abnormalities. Patient was given IV fluids here. She is happily discharged home. Follow-up with her primary care physician. No medications needed at discharge. Labs: Lab Results 09/15/23 09/15/23 Range/Units 17:04 18:28 WBC 8.6 (4.0-11.0) 10^3/uL RBC 4.65 (4.20-5.40) 10^6/uL Hgb 12.9 (12.0-16.0) g/dL Hct 40.5 (36.0-48.0) % MCV 87.1 (81.0-99.0) fL MCH 27.7 (26.7-34.0) pg MCHC 31.9 (29.9-35.2) g/dL RDW 13.5 (11.0-15.0) % Plt Count 309 (150-450) 10^3/uL MPV 9.2 L (9.5-13.5) fL Neut % (Auto) 71.6 (43.0-75.0) % Lymph % (Auto) 17.5 L (20.5-60.0) % [place] % (Auto) 8.5 (1.7-12.0) % Eos % (Auto) 1.2 (0.9-7.0) % Baso % (Auto) 0.6 (0.2-2.0) % Neut # (Auto) 6.2 (1.4-6.5) 10^3/uL Lymph # (Auto) 1.5 (1.2-3.8) 10^3/uL [place] # (Auto) 0.7 (0.3-0.8) 10^3/uL Eos # (Auto) 0.1 (0.0-0.7) 10^3/uL Baso # (Auto) 0.1 (0.0-0.1) 10^3/uL Abs Immat Gran (auto) 0.05 H (0.00-0.03) 10^3/uL Imm/Tot Granulo (auto) 0.6 H (0.0-0.5) % Sodium 138 (136-145) mmol/L Potassium 3.6 (3.5-5.1) mmol/L Chloride 103 (98-107) mmol/L Carbon Dioxide 26.4 (21.0-32.0) mmol/L Anion Gap 12.2 BUN 16.0 (7.0-18.0) mg/dL Creatinine 0.87 (0.55-1.02) mg/dL Est GFR ( Amer) >60 (>=60) Est GFR (Non-Af Amer) >60 (>=60) BUN/Creatinine Ratio 18.4 Glucose 221 H (74-106) mg/dL Lactate 1.8 (0.4-2.0) mmol/L Calcium 8.9 (8.5-10.1) mg/dL Total Bilirubin 0.5 (0.2-1.0) mg/dL AST 15 (15-37) U/L ALT 31 (14-59) U/L Alkaline Phosphatase 84 (46-116) U/L Total Protein 6.6 (6.4-8.2) g/dL Albumin 3.0 L (3.4-5.0) g/dL Globulin 3.6 g/dL Albumin/Globulin Ratio 0.8 Lipase 38.0 (16.0-77.0) U/L Urine Color Lt. yellow (YELLOW) Urine Clarity Clear (CLEAR) Urine pH 5.5 (5.0-9.0) Ur Specific [place] 1.015 (1.005-1.025) Urine Protein Negative (NEG/TRACE) mg/dL Urine Glucose (UA) Negative (NEGATIVE) mg/dL Urine Ketones Negative (NEGATIVE) mg/dL Urine Occult Blood Negative (NEGATIVE) Urine Nitrite Negative (NEGATIVE) Urine Bilirubin Negative (NEGATIVE) Urine Urobilinogen 0.2 (0.2-1.0) EU/dL Ur Leukocyte Esterase Negative (NEGATIVE) Urine HCG, Qual Negative (NEGATIVE) Imaging Data CT scan - abdomen: Radiologist's impression: ITS Impressions Abdomen/Pelvis CT 09/15/23 16:56 IMPRESSION: 1. No significant acute abnormality identified in the abdomen or pelvis, as described above. Electronically authenticated by: ALEJANDRO JARAMILLO Date: 09/15/2023 19:51 Discharge Plan Discharge Stand Alone Forms: Portal Instructions Chief Complaint: Abdominal Pain Clinical Impression: Nausea, Crohn's disease, Diarrhea Patient Disposition: Home, Self-Care Time of Disposition Decision: 19:59 Condition: Good Prescriptions / Home Meds: No Action tizanidine 4 mg tablet 4 mg PO TID lisinopril 20 mg tablet 20 mg PO DAILY magnesium oxide 400 mg (241.3 mg magnesium) tablet 400 mg PO DAILY oxycodone-acetaminophen 10-325 mg tablet 1 tab PO Q8H PRN (Reason: pain) trazodone 150 mg tablet 150 mg PO DAILY albuterol sulfate [Ventolin HFA] 90 mcg/actuation HFA aerosol inhaler 2 puff INHALATION Q6H PRN (Reason: shortness of breath or wheezing) insulin lispro [Humalog KwikPen Insulin] 100 unit/mL insulin pen 1 sliding scale dose SUBCUT TIDWMEAL escitalopram oxalate 10 mg tablet 10 mg PO DAILY insulin glargine [Lantus Solostar U-100 Insulin] 100 unit/mL (3 mL) insulin pen 32 unit SUBCUT QAM Jardiance 25 mg tablet 25 mg PO DAILY Spiriva Respimat 1.25 mcg/actuation mist 2 puff INHALATION DAILY azithromycin 250 mg tablet 250 mg PO DAILY benzonatate 200 mg capsule 200 mg PO DAILY hydrochlorothiazide 25 mg tablet 25 mg PO DAILY methylprednisolone 4 mg tablets,dose pack 4 mg PO DAILY Rx Instructions: Dose pack atorvastatin 20 mg tablet 20 mg PO QPM Print Language: Syriac Instructions: Acute Diarrhea (ED) Referrals: Physician,Non-Staff, MD [Primary Care Provider] - 1 week
[2023-09-15 20:08] VITALS: BP 125/84; PULSE 90; TEMP 36.6; O2SAT 95
== END 2023-09-15 20:09 | disposition home or self-care (01) ==
PROVIDERS: Physician Assistant; Emergency Provider Emergency Medicine
DX: K50.90 Crohn's disease, unspecified, without complications (principal); R19.7 Diarrhea, unspecified; R11.0 Nausea; Z90.49 Acquired absence of other specified parts of digestive tract; Z79.4 Long term (current) use of insulin; Z79.899 Other long term (current) drug therapy
CPT/HCPCS: 36415; 74177; 80053; 81003; 83605; 83690; 84703; 85025; 96361; 96374; 96375; 99285; J1170; J2930; Q9967

== ENCOUNTER 2023-10-08 18:22 | Emergency (ER) | payer OTHER, SELFPAY ==
[2023-10-08 18:34] VITALS: BP 151/89; PULSE 102; TEMP 37; O2SAT 97; BMI 47.0
--- NOTE | 2023-10-08 18:45 | ED_ITS ---
HPI HPI - General Adult General Chief complaint: Abdominal Pain Stated complaint: Nausea/Vomiting/Diarrhea Time Seen by Provider: 10/08/23 18:43 Source: patient Mode of arrival: walk-in Limitations: no limitations History of Present Illness HPI narrative: Patient is a 48-year-old female well-known to this emergency department with a history of Crohn's disease who presents to the ER For the evaluation of abdominal pain, nausea and vomiting. Patient states 4 days ago she developed abdominal pain in the right upper quadrant and was seen at [facility] because she was there visiting family. The patient lives in [place] and she comes to this emergency department frequently because she states she has family in the area. She states she was discharged today after being admitted for 4 days for pancreatitis. She states they gave her oxycodone from the hospital, she has not been able to take it because she had a return of nausea and vomiting this afternoon. She is due to go back to [place] Tomorrow but states she had an increase in pain and vomiting and was concerned and return to this hospital. She has not had any fevers. She has had a previous cholecystectomy, kalie endectomy and removal of the right ovary. She states a CT scan was done at [facility], she states she has had pancreatitis in the past and it is thought to be due to her Crohn's disease. She states she is typically given IV Dilaudid for her symptoms. She is not concerned for . Related Data Home Medications ?Medication ?Instructions ?Recorded ?Confirmed albuterol sulfate 90 mcg/actuation 2 puff inhalation Q6H PRN 01/19/23 09/15/23 aerosol inhaler (Ventolin HFA) shortness of breath or wheezing empagliflozin 25 mg tablet 25 mg PO DAILY 01/19/23 09/15/23 (Jardiance) escitalopram oxalate 10 mg tablet 10 mg PO DAILY 01/19/23 09/15/23 insulin glargine 100 unit/mL (3 32 unit subcut QAM 01/19/23 09/15/23 mL) subcutaneous pen (Lantus Solostar U-100 Insulin) insulin lispro 100 unit/mL 1 sliding scale dose subcut 01/19/23 09/15/23 subcutaneous pen (Humalog KwikPen TIDWMEAL (U-100) Insulin) lisinopril 20 mg tablet 20 mg PO DAILY 01/19/23 09/15/23 magnesium oxide 400 mg (241.3 mg 400 mg PO DAILY 01/19/23 09/15/23 magnesium) tablet oxycodone-acetaminophen 10 mg-325 1 tab PO Q8H PRN pain 01/19/23 09/15/23 mg tablet tiotropium bromide 1.25 2 puff inhalation DAILY 01/19/23 09/15/23 mcg/actuation mist for inhalation (Spiriva Respimat) tizanidine 4 mg tablet 4 mg PO TID 01/19/23 09/15/23 trazodone 150 mg tablet 150 mg PO DAILY 01/19/23 09/15/23 atorvastatin 20 mg tablet 20 mg PO QPM 07/03/23 09/15/23 azithromycin 250 mg tablet 250 mg PO DAILY 09/15/23 09/15/23 benzonatate 200 mg capsule 200 mg PO DAILY 09/15/23 09/15/23 hydrochlorothiazide 25 mg tablet 25 mg PO DAILY 09/15/23 09/15/23 methylprednisolone 4 mg tablets in 4 mg PO DAILY 09/15/23 09/15/23 a dose pack Previous Rx's ?Medication ?Instructions ?Recorded famotidine 20 mg tablet (Pepcid) 20 mg PO BID #10 tabs 10/08/23 ondansetron 4 mg disintegrating 4 mg PO Q6H PRN nausea and 10/08/23 tablet vomiting #12 tabs Allergies Allergy/AdvReac Type Severity Reaction Status Date / Time prochlorperazine Allergy Intermediate Shakiness Verified 08/29/23 19:22 [From Compazine] haloperidol [From Haldol] Allergy Unknown Verified 08/29/23 19:22 Iodinated Contrast Media Allergy Hives Verified 08/29/23 19:22 NSAIDS (Non-Steroidal AdvReac Severe Anaphylaxis Verified 08/29/23 19:22 Anti-Inflamma promethazine [From Phenergan] AdvReac Intermediate Shakiness Verified 08/29/23 19:22 Opioid HPI Opioid Management Most Recent Opioid Data: Last Pain Scale 8 10/08/23 19:37 Last MAR Pain Assessment 10/08/23 19:37 Review of Systems ROS Constitutional Denies: fever or chills Ears, nose, mouth, and throat Denies: throat pain or nasal congestion Cardiovascular Denies: chest pain Respiratory Denies: shortness of breath or cough Gastrointestinal Reports: abdominal pain, nausea and vomiting; Denies: diarrhea Musculoskeletal Denies: back pain Integumentary/Breast Denies: rash Hematologic/Lymphatic Denies: easy bruising [facility] Medical History (Updated 10/08/23 @ 20:02 by OLGA LIDIA Buck) Crohn's disease ?K50.90 - Crohn's disease, unspecified, without complications (ICD-10) Social History Smoking status: Never smoker Exam Narrative Exam Narrative: Gen.: Awake, alert, in no distress, Obese female Head: Normocephalic, atraumatic ENT: Moist mucous membranes Respiratory: No respiratory distress, lungs clear bilaterally Cardio: Regular rate and rhythm Gastrointestinal: Abdomen is soft, nondistended and Mildly tender to palpation in the epigastrium and right upper quadrant Extremities: Moves extremities equally Psych: Normal mood and affect Neuro: No focal neuro deficit Skin: Warm, dry, intact Constitutional Vital Signs, click to edit/add: Last Vital Signs Temp 98.6 F 10/08/23 18:34 Pulse 96 H 10/08/23 20:26 Resp 14 10/08/23 20:26 BP 140/71 10/08/23 20:26 Pulse Ox 94 L 10/08/23 20:26 O2 Del Method Room Air 10/08/23 20:26 Course Vital Signs Vital signs: Vital Signs Temperature 98.6 F 10/08/23 18:34 Pulse Rate 102 H 10/08/23 18:34 Respiratory Rate 18 10/08/23 18:34 Blood Pressure 151/89 H 10/08/23 18:34 Pulse Oximetry 97 10/08/23 18:34 Oxygen Delivery Method Room Air 10/08/23 18:34 Temperature 98.6 F 10/08/23 18:34 Pulse Rate 96 H 10/08/23 20:26 Respiratory Rate 14 10/08/23 20:26 Blood Pressure 140/71 10/08/23 20:26 Pulse Oximetry 94 L 10/08/23 20:26 Oxygen Delivery Method Room Air 10/08/23 20:26 Medical Decision Making MDM Narrative Medical decision making narrative: Patient was medicated with IV fluids, Dilaudid and Zofran. She had no episodes of emesis in the ER. Her vital signs are within normal limits. Lab studies show that the patient has a normal lipase, no leukocytosis and normal lactic acid. No indication for admission or further imaging at this time as she had a CAT scan over the weekend and she has had multiple CT scans at this facility. Patient will be discharged home with Pepcid and Zofran. No additional narcotics will be given. Patient's behavior of going to multiple facilities across multiple states is concerning, she can continue her home medications and return to the ER if symptoms change or worsen. She was reevaluated by attending physician prior to discharge. After the patient was discharged from the emergency department, she was witnessed by nursing staff walking to her vehicle and possibly driving herself home. Recommend requesting patient's ride come into the emergency department if she returns before narcotics are given. Medical Records Medical records reviewed: Yes I reviewed the patient's medical records Lab Data Lab results reviewed: Yes I reviewed the patient's lab results Labs: Lab Results 10/08/23 10/08/23 Range/Units 19:22 19:50 WBC 6.9 (4.0-11.0) 10^3/uL RBC 4.01 L (4.20-5.40) 10^6/uL Hgb 11.4 L (12.0-16.0) g/dL Hct 35.1 L (36.0-48.0) % MCV 87.5 (81.0-99.0) fL MCH 28.4 (26.7-34.0) pg MCHC 32.5 (29.9-35.2) g/dL RDW 13.5 (11.0-15.0) % Plt Count 241 (150-450) 10^3/uL MPV 9.1 L (9.5-13.5) fL Neut % (Auto) 67.7 (43.0-75.0) % Lymph % (Auto) 20.3 L (20.5-60.0) % [place] % (Auto) 9.2 (1.7-12.0) % Eos % (Auto) 1.9 (0.9-7.0) % Baso % (Auto) 0.3 (0.2-2.0) % Neut # (Auto) 4.7 (1.4-6.5) 10^3/uL Lymph # (Auto) 1.4 (1.2-3.8) 10^3/uL [place] # (Auto) 0.6 (0.3-0.8) 10^3/uL Eos # (Auto) 0.1 (0.0-0.7) 10^3/uL Baso # (Auto) 0.0 (0.0-0.1) 10^3/uL Abs Immat Gran (auto) 0.04 H (0.00-0.03) 10^3/uL Imm/Tot Granulo (auto) 0.6 H (0.0-0.5) % Sodium 141 (136-145) mmol/L Potassium 3.7 (3.5-5.1) mmol/L Chloride 103 (98-107) mmol/L Carbon Dioxide 31.3 (21.0-32.0) mmol/L Anion Gap 10.4 BUN 7.0 (7.0-18.0) mg/dL Creatinine 0.91 (0.55-1.02) mg/dL Est GFR ( Amer) >60 (>=60) Est GFR (Non-Af Amer) >60 (>=60) BUN/Creatinine Ratio 7.7 Glucose 138 H (74-106) mg/dL Lactate 1.7 (0.4-2.0) mmol/L Calcium 8.8 (8.5-10.1) mg/dL Total Bilirubin 0.6 (0.2-1.0) mg/dL AST 19 (15-37) U/L ALT 32 (14-59) U/L Alkaline Phosphatase 74 (46-116) U/L Total Protein 6.4 (6.4-8.2) g/dL Albumin 2.8 L (3.4-5.0) g/dL Globulin 3.6 g/dL Albumin/Globulin Ratio 0.8 Lipase 41.0 (16.0-77.0) U/L Urine Color Lt. yellow (YELLOW) Urine Clarity Clear (CLEAR) Urine pH 7.5 (5.0-9.0) Ur Specific [place] 1.015 (1.005-1.025) Urine Protein Negative (NEG/TRACE) mg/dL Urine Glucose (UA) Negative (NEGATIVE) mg/dL Urine Ketones Negative (NEGATIVE) mg/dL Urine Occult Blood Negative (NEGATIVE) Urine Nitrite Negative (NEGATIVE) Urine Bilirubin Negative (NEGATIVE) Urine Urobilinogen 0.2 (0.2-1.0) EU/dL Ur Leukocyte Esterase Negative (NEGATIVE) Discharge Plan Discharge Stand Alone Forms: Portal Instructions Chief Complaint: Abdominal Pain Clinical Impression: Abdominal pain Patient Disposition: Home, Self-Care Time of Disposition Decision: 20:02 Condition: Good Prescriptions / Home Meds: New famotidine [Pepcid] 20 mg tablet 20 mg PO BID Qty: 10 0RF ondansetron 4 mg tablet,disintegrating 4 mg PO Q6H PRN (Reason: nausea and vomiting) Qty: 12 0RF No Action tizanidine 4 mg tablet 4 mg PO TID lisinopril 20 mg tablet 20 mg PO DAILY magnesium oxide 400 mg (241.3 mg magnesium) tablet 400 mg PO DAILY oxycodone-acetaminophen 10-325 mg tablet 1 tab PO Q8H PRN (Reason: pain) trazodone 150 mg tablet 150 mg PO DAILY albuterol sulfate [Ventolin HFA] 90 mcg/actuation HFA aerosol inhaler 2 puff INHALATION Q6H PRN (Reason: shortness of breath or wheezing) insulin lispro [Humalog KwikPen Insulin] 100 unit/mL insulin pen 1 sliding scale dose SUBCUT TIDWMEAL escitalopram oxalate 10 mg tablet 10 mg PO DAILY insulin glargine [Lantus Solostar U-100 Insulin] 100 unit/mL (3 mL) insulin pen 32 unit SUBCUT QAM Jardiance 25 mg tablet 25 mg PO DAILY Spiriva Respimat 1.25 mcg/actuation mist 2 puff INHALATION DAILY azithromycin 250 mg tablet 250 mg PO DAILY benzonatate 200 mg capsule 200 mg PO DAILY hydrochlorothiazide 25 mg tablet 25 mg PO DAILY methylprednisolone 4 mg tablets,dose pack 4 mg PO DAILY Rx Instructions: Dose pack atorvastatin 20 mg tablet 20 mg PO QPM Print Language: Algerian Instructions: Abdominal Pain (ED) Referrals: Physician,Non-Staff, MD [Primary Care Provider] - 1 week Discharge Date/Time: 10/08/23 20:31
[2023-10-08] MEDS: 0.9 % SODIUM CHLORIDE 1,000 ML 999 ML IV (19:29)
[2023-10-08 19:31] LABS: Basophils Percent Auto 0.3 % (0.2-2.0); Eosinophils Absolute Auto 0.1 10^3/uL (0.0-0.7); Eosinophils Percent Auto 1.9 % (0.9-7.0); Hematocrit 35.1 % (36.0-48.0); Hemoglobin 11.4 g/dL (12.0-16.0); Immature Granulocytes Abs Auto 0.04 10^3/uL (0.00-0.03); Immature Granulocytes Pct Auto 0.6 % (0.0-0.5); Lymphocytes Absolute Auto 1.4 10^3/uL (1.2-3.8); Lymphocytes Percent Auto 20.3 % (20.5-60.0); Mean Corpuscular HGB Conc 32.5 g/dL (29.9-35.2); Mean Corpuscular Hemoglobin 28.4 pg (26.7-34.0); Mean Corpuscular Volume 87.5 fL (81.0-99.0); Mean Platelet Volume 9.1 fL (9.5-13.5); Monocytes Absolute Auto 0.6 10^3/uL (0.3-0.8); Monocytes Percent Auto 9.2 % (1.7-12.0); Neutrophils Absolute Auto 4.7 10^3/uL (1.4-6.5); Neutrophils Percent Auto 67.7 % (43.0-75.0); Platelet Count 241 10^3/uL (150-450); Red Blood Count 4.01 10^6/uL (4.20-5.40); Red Cell Distribution Width 13.5 % (11.0-15.0); White Blood Count 6.9 10^3/uL (4.0-11.0)
[2023-10-08] MEDS: HYDROMORPHONE HCL 1 MG/ML CARTRIDGE IV (19:37)
[2023-10-08] MEDS: ONDANSETRON PF 4 MG/2 ML VIAL IV (19:38)
[2023-10-08 19:46] LABS: Alanine Aminotransferase 32 U/L (14-59); Albumin Globulin Ratio 0.8; Albumin Level 2.8 g/dL (3.4-5.0); Alkaline Phosphatase 74 U/L (46-116); Anion Gap 10.4; Aspartate Amino Transferase 19 U/L (15-37); BUN Creatinine Ratio 7.7; Bilirubin Total 0.6 mg/dL (0.2-1.0); Calcium 8.8 mg/dL (8.5-10.1); Carbon Dioxide 31.3 mmol/L (21.0-32.0); Chloride 103 mmol/L (98-107); Estimated GFR (African America >60 (>=60); Estimated GFR (Non-African Ame >60 (>=60); Globulin 3.6 g/dL; Glucose 138 mg/dL (74-106); Potassium 3.7 mmol/L (3.5-5.1); Sodium 141 mmol/L (136-145); Total Protein 6.4 g/dL (6.4-8.2)
[2023-10-08 19:51] LABS: Lactate/Lactic Acid 1.7 mmol/L (0.4-2.0)
[2023-10-08 20:02] LABS: Bilirubin Urine NEGATIVE (NEGATIVE); Blood Urine NEGATIVE (NEGATIVE); Clarity Urine CLEAR (CLEAR); Color Urine LT. YELLOW (YELLOW); Glucose Urine UA NEGATIVE (NEGATIVE); Ketones Urine NEGATIVE (NEGATIVE); Leukocyte Esterase Urine NEGATIVE (NEGATIVE); Nitrite Urine NEGATIVE (NEGATIVE); Protein Urine NEGATIVE (NEG/TRACE); Specific Gravity Urine 1.015 (1.005-1.025); Urobilinogen Urine 0.2 EU/dL (0.2-1.0); pH Urine 7.5 (5.0-9.0)
[2023-10-08 20:12] LABS: Urine Microscopic Indicated NO
[2023-10-08 20:26] VITALS: BP 140/71; PULSE 96; O2SAT 94
== END 2023-10-08 20:31 | disposition home or self-care (01) ==
PROVIDERS: Physician Assistant; Emergency Provider Emergency Medicine
DX: R10.9 Unspecified abdominal pain (principal); K50.90 Crohn's disease, unspecified, without complications; Z90.49 Acquired absence of other specified parts of digestive tract; Z90.721 Acquired absence of ovaries, unilateral; Z79.899 Other long term (current) drug therapy; Z79.4 Long term (current) use of insulin
CPT/HCPCS: 36415; 80053; 81003; 83605; 83690; 85025; 96361; 96374; 96375; 99284; J1170

== ENCOUNTER 2023-12-03 03:14 | Emergency (ER) | payer OTHER, SELFPAY ==
[2023-12-03 03:16] VITALS: BP 146/82; PULSE 100; TEMP 36.6; O2SAT 96; BMI 50.1
--- NOTE | 2023-12-03 03:26 | XR_ITS ---
The [address] [address] Patient Name: AYLIN HAYWOOD MRN: [id number] date: 1975 Sex: F Assigned Patient Location: ER Current Patient Location: ED.MAIN Accession/Order Number: [id number] Exam Date: 12/03/2023 03:34 Report Date: 12/03/2023 05:33 At the request of: NAVI FISHER Procedure: XR acute abdomen series EXAMINATION: XR acute abdomen series HISTORY: abd pain , bloody stool COMPARISON: No relevant comparison available. FINDINGS: LUNGS: No infiltrate, pneumothorax, or pleural effusion. MEDIASTINUM: No abnormal widening. BOWEL GAS PATTERN: Non-obstructed. No abnormal dilation or suspicious fluid levels. Moderate amount of stool throughout the colon. FREE AIR: None. CALCIFICATIONS: Multiple stones projecting over the kidneys, largest is 7 mm. BONES: No fracture or visible bone lesion. OTHER: Negative. XR/XR acute abdomen series IMPRESSION: 1. No acute cardiopulmonary process. 2. Normal bowel gas pattern. 3. Bilateral nephrolithiasis. Electronically authenticated by: MICHAEL KOTHARI Date: 12/03/2023 05:33
--- NOTE | 2023-12-03 03:32 | ED_ITS ---
HPI - Abdominal Pain General Chief Complaint: Abdominal Pain Stated Complaint: abd pain bloody stool Time Seen by Provider: 12/03/23 03:15 Source: patient Mode of arrival: walk-in History of Present Illness HPI narrative: 48-year-old female to the emergency department with chief complaint of abdominal pain and blood in the stool. She reports she has a history of Crohn's. This is typical presentation for her when she has a Crohn's flare. She reports she occasionally has some nausea and vomiting associated as well. She denies any fever, sweats, chills. She denies . She lives in [facility]. She follows with gastroenterology in [place]. She reports she was in town visiting family for Father's Day. Patient reports that she took her Percocet 10's and they just were not cutting it . Related Data Home Medications ?Medication ?Instructions ?Recorded ?Confirmed albuterol sulfate 90 mcg/actuation 2 puff inhalation Q6H PRN 01/19/23 09/15/23 aerosol inhaler (Ventolin HFA) shortness of breath or wheezing empagliflozin 25 mg tablet 25 mg PO DAILY 01/19/23 09/15/23 (Jardiance) escitalopram oxalate 10 mg tablet 10 mg PO DAILY 01/19/23 09/15/23 insulin glargine 100 unit/mL (3 32 unit subcut QAM 01/19/23 09/15/23 mL) subcutaneous pen (Lantus Solostar U-100 Insulin) insulin lispro 100 unit/mL 1 sliding scale dose subcut 01/19/23 09/15/23 subcutaneous pen (Humalog KwikPen TIDWMEAL (U-100) Insulin) lisinopril 20 mg tablet 20 mg PO DAILY 01/19/23 09/15/23 magnesium oxide 400 mg (241.3 mg 400 mg PO DAILY 01/19/23 09/15/23 magnesium) tablet oxycodone-acetaminophen 10 mg-325 1 tab PO Q8H PRN pain 01/19/23 09/15/23 mg tablet tiotropium bromide 1.25 2 puff inhalation DAILY 01/19/23 09/15/23 mcg/actuation mist for inhalation (Spiriva Respimat) tizanidine 4 mg tablet 4 mg PO TID 01/19/23 09/15/23 trazodone 150 mg tablet 150 mg PO DAILY 01/19/23 09/15/23 atorvastatin 20 mg tablet 20 mg PO QPM 07/03/23 09/15/23 azithromycin 250 mg tablet 250 mg PO DAILY 09/15/23 09/15/23 benzonatate 200 mg capsule 200 mg PO DAILY 09/15/23 09/15/23 hydrochlorothiazide 25 mg tablet 25 mg PO DAILY 09/15/23 09/15/23 methylprednisolone 4 mg tablets in 4 mg PO DAILY 09/15/23 09/15/23 a dose pack Previous Rx's ?Medication ?Instructions ?Recorded famotidine 20 mg tablet (Pepcid) 20 mg PO BID #10 tabs 10/08/23 ondansetron 4 mg disintegrating 4 mg PO Q6H PRN nausea and 10/08/23 tablet vomiting #12 tabs prednisone 10 mg tablet 10 mg PO DAILY #42 tabs 12/03/23 Allergies Allergy/AdvReac Type Severity Reaction Status Date / Time prochlorperazine Allergy Intermediate Shakiness Verified 08/29/23 19:22 [From Compazine] haloperidol [From Haldol] Allergy Unknown Verified 08/29/23 19:22 Iodinated Contrast Media Allergy Hives Verified 08/29/23 19:22 NSAIDS (Non-Steroidal AdvReac Severe Anaphylaxis Verified 08/29/23 19:22 Anti-Inflamma promethazine [From Phenergan] AdvReac Intermediate Shakiness Verified 08/29/23 19:22 Review of Systems ROS Status of ROS 10 or more systems reviewed and unremark able except as noted in history and below [facility] Medical History (Updated 12/03/23 @ 03:49 by Selvin Still MD) Crohn's disease ?K50.90 - Crohn's disease, unspecified, without complications (ICD-10) Social History Smoking status: Never smoker Exam Narrative Exam Narrative: VITALS: I have reviewed the triage vital signs. GENERAL: Morbidly obese adult female in no distress NEURO: Alert and oriented. Moves all extremities. Face is symmetric and expressive. EYES: PERRL. No scleral icterus or conjunctival injection. No discharge. HENT: Normocephalic, atraumatic. Hearing is grossly intact. Nares grossly patent and without discharge. Mucous membranes moist. NECK: No JVD. Patient moves neck without restriction. CARDIO: Rhythm regular. Normal rate. No murmur, rub, or gallop. Pulses equal bilaterally in the upper and lower extremity. No lower extremity edema. PULM: Lungs clear to auscultation in all mccabe. No wheezes, rales, or rhonchi. No conversational dyspnea. No splinting, stridor, or accessory muscle use. GI/: Abdomen is soft. Mild lower tenderness. No focal tenderness. Normoactive bowel sounds. EXTREMITIES: Symmetric muscle bulk. No joint swelling. No clubbing, cyanosis, or deformity. SKIN: Warm and dry. Normal turgor. No rash or lesions appreciated. PSYCH: Mood, affect, and interaction is appropriate to the setting. Constitutional Vital Signs, click to edit/add: Last Vital Signs Temp 97.9 F 12/03/23 03:16 Pulse 100 H 12/03/23 03:16 Resp 16 12/03/23 03:16 BP 146/82 H 12/03/23 03:16 Pulse Ox 96 12/03/23 03:16 O2 Del Method Room Air 12/03/23 03:16 Course Vital Signs Vital signs: Vital Signs Temperature 97.9 F 12/03/23 03:16 Pulse Rate 100 H 12/03/23 03:16 Respiratory Rate 16 12/03/23 03:16 Blood Pressure 146/82 H 12/03/23 03:16 Pulse Oximetry 96 12/03/23 03:16 Oxygen Delivery Method Room Air 12/03/23 03:16 Temperature 97.9 F 12/03/23 03:16 Pulse Rate 100 H 12/03/23 03:16 Respiratory Rate 16 12/03/23 03:16 Blood Pressure 146/82 H 12/03/23 03:16 Pulse Oximetry 96 12/03/23 03:16 Oxygen Delivery Method Room Air 12/03/23 03:16 MDM - Abdominal Pain MDM Narrative Medical decision making narrative: 48-year-old female to the emergency department chief complaint of abdominal pain and blood in the stool in the setting of Crohn's disease. Vital stable, the patient is afebrile. Abdominal examination is benign. Basic labs, abdominal series are ordered for medical screening exam. Patient requests Dilaudid for pain control reports this is usually given to her. I offered Bentyl, Zofran, Solu-Medrol, fluids. Patient lives in a different state however has multiple visits to the facility for the same complaint. She asked for Dilaudid by name at this visit and documented in previous visits. She is on chronic narcotic pain medications per her report. I am concerned that there may be drug seeking behavior involved; she has multiple visits at this site, other sites, lives out of state, asked for drugs by name, knows doses, has higher dose chronic scripts. I do not feel comfortable giving a dose in the emergency department or prescribing narcotic pain medications to this patient. Early boundary was sent with this patient after my chart review and initial interview with her that I would not be using narcotic pain medications for her treatment today. We discussed that opiate use both short and long-term has been shown to increase the risk of complications, morbidity and mortality in patients with inflammatory bowel disease. There is also data that shows that narcotic pain medication does not improve the perception of pain in patients with inflammatory bowel disease. She agreed with my plan. CBC and chemistry without acute abnormalities. Her abdominal series is without acute findings. Urinalysis without acute findings. Her ESR is mildly elevated which may suggest she has an acute Crohn's flare. Patient reexamined. She remains comfortable in appearance and in no distress. Will prescribe prednisone taper. She is instructed to call and follow-up with her GI doctor. Return precautions were discussed. All questions were answered. The patient was discharged home. Medical Records Attestation: I reviewed the patient's medical records. Lab Data Attestation: I reviewed the patient's lab results. Labs: Lab Results 12/03/23 12/03/23 Range/Units 03:25 04:05 WBC 6.7 (4.0-11.0) 10^3/uL RBC 4.50 (4.20-5.40) 10^6/uL Hgb 12.7 (12.0-16.0) g/dL Hct 39.0 (36.0-48.0) % MCV 86.7 (81.0-99.0) fL MCH 28.2 (26.7-34.0) pg MCHC 32.6 (29.9-35.2) g/dL RDW 13.0 (11.0-15.0) % Plt Count 297 (150-450) 10^3/uL MPV 9.2 L (9.5-13.5) fL Neut % (Auto) 54.6 (43.0-75.0) % Lymph % (Auto) 33.1 (20.5-60.0) % [place] % (Auto) 9.4 (1.7-12.0) % Eos % (Auto) 1.5 (0.9-7.0) % Baso % (Auto) 0.4 (0.2-2.0) % Neut # (Auto) 3.7 (1.4-6.5) 10^3/uL Lymph # (Auto) 2.2 (1.2-3.8) 10^3/uL [place] # (Auto) 0.6 (0.3-0.8) 10^3/uL Eos # (Auto) 0.1 (0.0-0.7) 10^3/uL Baso # (Auto) 0.0 (0.0-0.1) 10^3/uL Abs Immat Gran (auto) 0.07 H (0.00-0.03) 10^3/uL Imm/Tot Granulo (auto) 1.0 H (0.0-0.5) % ESR 90 H (<=20) mm/hr Sodium 135 L (136-145) mmol/L Potassium 3.9 (3.5-5.1) mmol/L Chloride 101 (98-107) mmol/L Carbon Dioxide 29.4 (21.0-32.0) mmol/L Anion Gap 8.5 BUN 16.0 (7.0-18.0) mg/dL Creatinine 1.02 (0.55-1.02) mg/dL Est GFR ( Amer) >60 (>=60) Est GFR (Non-Af Amer) 58 L (>=60) BUN/Creatinine Ratio 15.7 Glucose 182 H (74-106) mg/dL Calcium 9.4 (8.5-10.1) mg/dL Total Bilirubin 0.4 (0.2-1.0) mg/dL AST 16 (15-37) U/L ALT 37 (14-59) U/L Alkaline Phosphatase 83 (46-116) U/L Total Protein 7.2 (6.4-8.2) g/dL Albumin 3.2 L (3.4-5.0) g/dL Globulin 4.0 g/dL Albumin/Globulin Ratio 0.8 Urine Color Lt. yellow (YELLOW) Urine Clarity Clear (CLEAR) Urine pH 6.0 (5.0-9.0) Ur Specific [place] 1.020 (1.005-1.025) Urine Protein Negative (NEG/TRACE) mg/dL Urine Glucose (UA) Negative (NEGATIVE) mg/dL Urine Ketones Negative (NEGATIVE) mg/dL Urine Occult Blood Negative (NEGATIVE) Urine Nitrite Negative (NEGATIVE) Urine Bilirubin Negative (NEGATIVE) Urine Urobilinogen 0.2 (0.2-1.0) EU/dL Ur Leukocyte Esterase Negative (NEGATIVE) Urine RBC 0-2 (0-2) #/HPF Urine WBC None seen (NONE SEEN) #/HPF Ur Squamous Epith Cells Rare (NONE/RARE) #/LPF Urine Crystals None seen (None Seen) #/HPF Urine Bacteria None seen (NONE SEEN) #/HPF Urine Casts None seen (NONE SEEN) #/LPF Urine Mucus None seen (NONE SEEN) Ur Culture Indicated? No Imaging Data X-ray abdominal series: Attestation: I have reviewed the pertinent imaging results. Radiologist's impression: ITS Impressions Chest/Abdomen X-ray 12/03/23 03:26 IMPRESSION: 1. No acute cardiopulmonary process. 2. Normal bowel gas pattern. 3. Bilateral nephrolithiasis. Electronically authenticated by: MICHAEL KOTHARI Date: 12/03/2023 05:33 Discharge Plan Discharge Stand Alone Forms: Portal Instructions Chief Complaint: Abdominal Pain Clinical Impression: Chronic abdominal pain, Crohn's disease Patient Disposition: Home, Self-Care Time of Disposition Decision: 05:38 Condition: Good Mode of Transportation: Private Vehicle Prescriptions / Home Meds: New prednisone 10 mg tablet 10 mg PO DAILY Qty: 42 0RF Rx Instructions: Take six Tablets daily for two days. Take five tablets daily for two days. Take four tablets daily for two days. Take three tablets daily for two days. Take two tablets daily for two days. Take one tablet daily for two days. No Action tizanidine 4 mg tablet 4 mg PO TID lisinopril 20 mg tablet 20 mg PO DAILY magnesium oxide 400 mg (241.3 mg magnesium) tablet 400 mg PO DAILY oxycodone-acetaminophen 10-325 mg tablet 1 tab PO Q8H PRN (Reason: pain) trazodone 150 mg tablet 150 mg PO DAILY albuterol sulfate [Ventolin HFA] 90 mcg/actuation HFA aerosol inhaler 2 puff INHALATION Q6H PRN (Reason: shortness of breath or wheezing) insulin lispro [Humalog KwikPen Insulin] 100 unit/mL insulin pen 1 sliding scale dose SUBCUT TIDWMEAL escitalopram oxalate 10 mg tablet 10 mg PO DAILY insulin glargine [Lantus Solostar U-100 Insulin] 100 unit/mL (3 mL) insulin pen 32 unit SUBCUT QAM Jardiance 25 mg tablet 25 mg PO DAILY Spiriva Respimat 1.25 mcg/actuation mist 2 puff INHALATION DAILY azithromycin 250 mg tablet 250 mg PO DAILY benzonatate 200 mg capsule 200 mg PO DAILY hydrochlorothiazide 25 mg tablet 25 mg PO DAILY methylprednisolone 4 mg tablets,dose pack 4 mg PO DAILY Rx Instructions: Dose pack famotidine [Pepcid] 20 mg tablet 20 mg PO BID Qty: 10 0RF ondansetron 4 mg tablet,disintegrating 4 mg PO Q6H PRN (Reason: nausea and vomiting) Qty: 12 0RF atorvastatin 20 mg tablet 20 mg PO QPM Print Language: Slovenian Instructions: Crohn Disease (ED), Abdominal Pain (ED) Additional Instructions: Call the office of your primary care doctor to arrange for follow-up within the above-stated timeframe. Follow-up with your primary care doctor about this ED visit. You should review your labs, imaging, and diagnoses from this ED visit with your primary care physician. There may be non-emergent findings that need further evaluation. If you were prescribed medications you should discuss possible side-effects and drug interactions with your pharmacist. Call 911 or go to the nearest Emergency Department if you develop any new or worsening symptoms. Seek immediate medical attention if you develop: worsening abdominal pain, new or worsening nausea, new or worsening vomiting, ne w or worsening diarrhea, chest pain, shortness of breath, pain with urination, problems urinating, fever, chills, weakness, or any new or worsening symptoms. Referrals: Physician,Non-Staff, MD [Primary Care Provider] - 1 week (Follow-up with your GI doctor in [place]. Call their office tomorrow and notify them of your flare. Notify them you are on steroids.)
[2023-12-03 03:36] LABS: Basophils Percent Auto 0.4 % (0.2-2.0); Eosinophils Absolute Auto 0.1 10^3/uL (0.0-0.7); Eosinophils Percent Auto 1.5 % (0.9-7.0); Hemoglobin 12.7 g/dL (12.0-16.0); Immature Granulocytes Abs Auto 0.07 10^3/uL (0.00-0.03); Lymphocytes Absolute Auto 2.2 10^3/uL (1.2-3.8); Lymphocytes Percent Auto 33.1 % (20.5-60.0); Mean Corpuscular HGB Conc 32.6 g/dL (29.9-35.2); Mean Corpuscular Hemoglobin 28.2 pg (26.7-34.0); Mean Corpuscular Volume 86.7 fL (81.0-99.0); Mean Platelet Volume 9.2 fL (9.5-13.5); Monocytes Absolute Auto 0.6 10^3/uL (0.3-0.8); Monocytes Percent Auto 9.4 % (1.7-12.0); Neutrophils Absolute Auto 3.7 10^3/uL (1.4-6.5); Neutrophils Percent Auto 54.6 % (43.0-75.0); Platelet Count 297 10^3/uL (150-450); White Blood Count 6.7 10^3/uL (4.0-11.0)
[2023-12-03 03:40] LABS: Erythrocyte Sedimentation Rate 90 mm/hr (<=20)
[2023-12-03 03:47] LABS: Alanine Aminotransferase 37 U/L (14-59); Albumin Globulin Ratio 0.8; Albumin Level 3.2 g/dL (3.4-5.0); Alkaline Phosphatase 83 U/L (46-116); Anion Gap 8.5; Aspartate Amino Transferase 16 U/L (15-37); BUN Creatinine Ratio 15.7; Bilirubin Total 0.4 mg/dL (0.2-1.0); Calcium 9.4 mg/dL (8.5-10.1); Carbon Dioxide 29.4 mmol/L (21.0-32.0); Chloride 101 mmol/L (98-107); Estimated GFR (African America >60 (>=60); Estimated GFR (Non-African Ame 58 (>=60); Glucose 182 mg/dL (74-106); Potassium 3.9 mmol/L (3.5-5.1); Sodium 135 mmol/L (136-145); Total Protein 7.2 g/dL (6.4-8.2)
[2023-12-03] MEDS: DICYCLOMINE HCL 20 MG/2 ML VIAL IM (03:54)
[2023-12-03] MEDS: METHYLPREDNISOLONE SOD SUCC PF 125 MG/2 ML VIAL IVP (03:54)
[2023-12-03] MEDS: ONDANSETRON PF 4 MG/2 ML VIAL IV (03:54)
[2023-12-03] MEDS: 0.9 % SODIUM CHLORIDE 1,000 ML 999 ML IV (03:54)
[2023-12-03 04:10] LABS: Bilirubin Urine NEGATIVE (NEGATIVE); Blood Urine NEGATIVE (NEGATIVE); Clarity Urine CLEAR (CLEAR); Color Urine LT. YELLOW (YELLOW); Glucose Urine UA NEGATIVE (NEGATIVE); Ketones Urine NEGATIVE (NEGATIVE); Leukocyte Esterase Urine NEGATIVE (NEGATIVE); Nitrite Urine NEGATIVE (NEGATIVE); Protein Urine NEGATIVE (NEG/TRACE); Urobilinogen Urine 0.2 EU/dL (0.2-1.0)
[2023-12-03 04:18] LABS: Bacteria Urine NONE SEEN #/HPF (NONE SEEN); Cast Seen? NONE SEEN #/LPF (NONE SEEN); Crystals Seen? None Seen #/HPF (None Seen); Mucus Urine NONE SEEN (NONE SEEN); RBC Urine 0-2 #/HPF (0-2); Squamous Epithelial Cell Urine RARE #/LPF (NONE/RARE); Urine Culture Indicated NO; WBC Urine NONE SEEN #/HPF (NONE SEEN)
== END 2023-12-03 05:49 | disposition home or self-care (01) ==
PROVIDERS: Emergency Provider Student in an Organized Health Care Education/Training Program
DX: R10.9 Unspecified abdominal pain (principal); G89.29 Other chronic pain; K50.90 Crohn's disease, unspecified, without complications
CPT/HCPCS: 36415; 74022; 80053; 81001; 85025; 85652; 96361; 96372; 96374; 96375; 99284; J0500; J2405; J2919

== ENCOUNTER 2024-05-31 00:35 | Emergency (ER) | payer OTHER, SELFPAY ==
[2024-05-31 00:39] VITALS: BP 161/93; PULSE 77; TEMP 36.5; O2SAT 96; BMI 40.6
[2024-05-31 01:00] VITALS: O2SAT 97
--- NOTE | 2024-05-31 01:05 | XR_ITS ---
The [address] [address] Patient Name: AYLIN HAYWOOD MRN: [id number] date: 1975 Sex: F Assigned Patient Location: ER Current Patient Location: Accession/Order Number: [id number] Exam Date: 05/31/2024 01:15 Report Date: 05/31/2024 05:31 At the request of: NALLELY SANTAMARIA Procedure: XR acute abdomen series EXAM: XR acute abdomen series HISTORY: abd pain COMPARISON: Acute abdominal series 12/03/2023. TECHNIQUE: PA view of the chest and 4 AP views of the abdomen performed. FINDINGS: Chest: The trachea is midline. The heart size is normal. The cardiomediastinal silhouette and hilar shadows are normal. There is no consolidation, pleural effusion or pulmonary vascular congestion. There is no pneumothorax. The osseous structures are unremarkable. Abdomen: Nonobstructive bowel gas pattern with a moderate amount of stool within the colon. There is no free air. Previous cholecystectomy. There are calculi overlying both kidneys, largest on the right measuring 5.2 mm in largest on the left measuring 6.4 mm. There are no abnormal mass shadows. There is no acute osseous abnormality. There is slight levoscoliosis. XR/XR acute abdomen series IMPRESSION: The PA view of the chest is unremarkable. Nonobstructive bowel gas pattern with a moderate amount of stool within the colon. Bilateral renal calculi measuring up to 5.2 mm on the right and 6.4 mm on the left. Electronically authenticated by: MAHOGANY SOSA Date: 05/31/2024 05:31
--- NOTE | 2024-05-31 01:06 | ED.ABDPAIN1 ---
HPI - Abdominal Pain General Chief Complaint: Abdominal Pain Stated Complaint: ABD PAIN Time Seen by Provider: 05/31/24 00:42 Source: patient Mode of arrival: walk-in Limitations: no limitations History of Present Illness HPI narrative: pt with self-reported history of Crohn's and pancreatitis presents with right sided abd pain that began yesterday and worsened tonight. No fever or chills tonight. Mild radiation of pain into right flank. Had some diarrhea tonight that was reported as bloody. no urinary symptoms. Nausea but no vomiting. She said that she has been battling pancreatitis throughout the year and been hospitalized in [place] for the same. 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 Related Data Home Medications ?Medication ?Instructions ?Recorded ?Confirmed albuterol sulfate 90 mcg/actuation 2 puff inhalation Q6H PRN 01/19/23 09/15/23 aerosol inhaler (Ventolin HFA) shortness of breath or wheezing empagliflozin 25 mg tablet 25 mg PO DAILY 01/19/23 09/15/23 (Jardiance) escitalopram oxalate 10 mg tablet 10 mg PO DAILY 01/19/23 09/15/23 insulin glargine 100 unit/mL (3 32 unit subcut QAM 01/19/23 09/15/23 mL) subcutaneous pen (Lantus Solostar U-100 Insulin) insulin lispro 100 unit/mL 1 sliding scale dose subcut 01/19/23 09/15/23 subcutaneous pen (Humalog KwikPen TIDWMEAL (U-100) Insulin) lisinopril 20 mg tablet 20 mg PO DAILY 01/19/23 09/15/23 magnesium oxide 400 mg (241.3 mg 400 mg PO DAILY 01/19/23 09/15/23 magnesium) tablet oxycodone-acetaminophen 10 mg-325 1 tab PO Q8H PRN pain 01/19/23 09/15/23 mg tablet tiotropium bromide 1.25 2 puff inhalation DAILY 01/19/23 09/15/23 mcg/actuation mist for inhalation (Spiriva Respimat) tizanidine 4 mg tablet 4 mg PO TID 01/19/23 09/15/23 trazodone 150 mg tablet 150 mg PO DAILY 01/19/23 09/15/23 atorvastatin 20 mg tablet 20 mg PO QPM 07/03/23 09/15/23 azithromycin 250 mg tablet 250 mg PO DAILY 09/15/23 09/15/23 benzonatate 200 mg capsule 200 mg PO DAILY 09/15/23 09/15/23 hydrochlorothiazide 25 mg tablet 25 mg PO DAILY 09/15/23 09/15/23 methylprednisolone 4 mg tablets in 4 mg PO DAILY 09/15/23 09/15/23 a dose pack Previous Rx's ?Medication ?Instructions ?Recorded famotidine 20 mg tablet (Pepcid) 20 mg PO BID #10 tabs 10/08/23 ondansetron 4 mg disintegrating 4 mg PO Q6H PRN nausea and 10/08/23 tablet vomiting #12 tabs prednisone 10 mg tablet 10 mg PO DAILY #42 tabs 12/03/23 Allergies Allergy/AdvReac Type Severity Reaction Status Date / Time prochlorperazine (From Allergy Intermediate Shakiness Verified 05/31/24 00:47 Compazine) haloperidol (From Haldol) Allergy Unknown Shakiness Verified 05/31/24 00:47 Iodinated Contrast Media Allergy Hives Verified 05/31/24 00:47 NSAIDS (Non-Steroidal AdvReac Severe Anaphylaxis Verified 05/31/24 00:47 Anti-Inflamma promethazine (From Phenergan) AdvReac Intermediate Shakiness Verified 05/31/24 00:47 [facility] Medical History (Updated 05/31/24 @ 05:29 by Paulo Arshad) Crohn's disease ?K50.90 - Crohn's disease, unspecified, without complications (ICD-10) Social History Smoking status: Never smoker Little interest or pleasure in doing things: not at all Feeling down, depressed, or hopeless: not at all Exam Narrative Exam Narrative: Nurses notes and vital signs reviewed and patient is not hypoxic. afebrile General: Well-appearing and in no apparent distress. Skin: Warm, dry, no pallor noted. No rash. Head: Normocephalic, atraumatic. Eye: Pupils are equal, round and EOMI. No scleral icterus. Cardiovascular: Regular Rate and Rhythm without murmur, gallop or rub. Respiratory: No accessory muscle use or respiratory distress. Lungs are clear to auscultation, no wheezing, rales or rhonchi Back: No CVA tenderness Musculoskeletal: normal ROM GI: Abdomen is soft, non-distended. Normal bowel sounds. No masses appreciated. Diffuse Right Sided Abd tenderness to palpation. No rebound, guarding, or rigidity noted. Neurological: A&O x4. No cranial nerve dysfunction observed. No truncal ataxia. Moves all extremities. Sensation intact. Psychiatric: Cooperative and interactive. Normal mood and affect. Constitutional Vital Signs, click to edit/add: Last Vital Signs Temp 97.7 F 05/31/24 00:39 Pulse 77 05/31/24 00:39 Resp 18 05/31/24 00:39 BP 161/93 H 05/31/24 00:39 Pulse Ox 97 05/31/24 01:00 O2 Del Method Room Air 05/31/24 01:00 Course Vital Signs Vital signs: Vital Signs Temperature 97.7 F 05/31/24 00:39 Pulse Rate 77 05/31/24 00:39 Respiratory Rate 18 05/31/24 00:39 Blood Pressure 161/93 H 05/31/24 00:39 Pulse Oximetry 96 05/31/24 00:39 Oxygen Delivery Method Room Air 05/31/24 00:39 Temperature 97.7 F 05/31/24 00:39 Pulse Rate 77 05/31/24 00:39 Respiratory Rate 18 05/31/24 00:39 Blood Pressure 161/93 H 05/31/24 00:39 Pulse Oximetry 97 05/31/24 01:00 Oxygen Delivery Method Room Air 05/31/24 01:00 MDM - Abdominal Pain MDM Narrative Medical decision making narrative: Peripheral IV established and blood drawn and sent for testing. Patient was given IV Zofran and IV Solu-Medrol. Abdominal x-rays were obtained. I reviewed the patient's charts from previous ED visits. Dr. Still had a discussion with this patient in November about the negative effects of opiates and inflammatory bowel disease, irritable bowel syndrome, abdominal disorders. He expressed concern, per his note, about her use of multiple emergency departments to be evaluated and treated for her abdominal pain as well as prescriptions being filled in multiple locations, requesting Dilaudid by name. Our PA Mariella Tucker wrote of similar concerns in her note during the ED visit prior to that. Her workups in this ED have not revealed pancreatitis or Crohn's disease. I am holding off giving opiates for pain until I see her lab results. Blood tests did not reveal acute pancreatitis or other worrisome pathology. Acute abd series with non-specific stool and gas pattern without obstruction or perforation. Patient informed of findings and was discharged home with prescriptions for zofran, prednisone and Levsin. She was instructed to see her professor of counseling for follow up. Lab Data Attestation: I reviewed the patient's lab results. Labs: Lab Results 05/31/24 Range/Units 00:45 WBC 6.6 (4.0-11.0) 10^3/uL RBC 4.64 (4.20-5.40) 10^6/uL Hgb 13.9 (12.0-16.0) g/dL Hct 41.6 (36.0-48.0) % MCV 89.7 (81.0-99.0) fL MCH 30.0 (26.7-34.0) pg MCHC 33.4 (29.9-35.2) g/dL RDW 12.7 (11.0-15.0) % Plt Count 278 (150-450) 10^3/uL MPV 9.4 L (9.5-13.5) fL Neut % (Auto) 55.8 (43.0-75.0) % Lymph % (Auto) 29.5 (20.5-60.0) % [place] % (Auto) 10.9 (1.7-12.0) % Eos % (Auto) 2.7 (0.9-7.0) % Baso % (Auto) 0.8 (0.2-2.0) % Neut # (Auto) 3.7 (1.4-6.5) 10^3/uL Lymph # (Auto) 2.0 (1.2-3.8) 10^3/uL [place] # (Auto) 0.7 (0.3-0.8) 10^3/uL Eos # (Auto) 0.2 (0.0-0.7) 10^3/uL Baso # (Auto) 0.1 (0.0-0.1) 10^3/uL Abs Immat Gran (auto) 0.02 (0.00-0.03) 10^3/uL Imm/Tot Granulo (auto) 0.3 (0.0-0.5) % Sodium 140 (136-145) mmol/L Potassium 3.2 L (3.5-5.1) mmol/L Chloride 103 (98-107) mmol/L Carbon Dioxide 31.5 (21.0-32.0) mmol/L Anion Gap 8.7 BUN 18.0 (7.0-18.0) mg/dL Creatinine 1.02 (0.55-1.02) mg/dL Est GFR ( Amer) >60 (>=60 mL/min/1.73m^2) Est GFR (Non-Af Amer) 58 L (>=60 mL/min/1.73m^2) BUN/Creatinine Ratio 17.6 Glucose 116 H (74-106) mg/dL Calcium 9.1 (8.5-10.1) mg/dL Total Bilirubin 0.6 (0.2-1.0) mg/dL AST 21 (15-37) U/L ALT 34 (14-59) U/L Alkaline Phosphatase 85 (46-116) U/L Total Protein 7.3 (6.4-8.2) g/dL Albumin 3.5 (3.4-5.0) g/dL Globulin 3.8 g/dL Albumin/Globulin Ratio 0.9 Lipase 45.0 (16.0-77.0) U/L Imaging Data Abdominal x-ray: Attestation: I personally reviewed and interpreted this imaging study as follows: My impression: NAD Discharge Plan Discharge Chief Complaint: Abdominal Pain Clinical Impression: Abdominal pain, Nausea Patient Disposition: Home, Self-Care Time of Disposition Decision: 05:28 Prescriptions / Home Meds: No Action tizanidine 4 mg tablet 4 mg PO TID lisinopril 20 mg tablet 20 mg PO DAILY magnesium oxide 400 mg (241.3 mg magnesium) tablet 400 mg PO DAILY oxycodone-acetaminophen 10-325 mg tablet 1 tab PO Q8H PRN (Reason: pain) trazodone 150 mg tablet 150 mg PO DAILY albuterol sulfate [Ventolin HFA] 90 mcg/actuation HFA aerosol inhaler 2 puff INHALATION Q6H PRN (Reason: shortness of breath or wheezing) insulin lispro [Humalog KwikPen Insulin] 100 unit/mL insulin pen 1 sliding scale dose SUBCUT TIDWMEAL escitalopram oxalate 10 mg tablet 10 mg PO DAILY insulin glargine [Lantus Solostar U-100 Insulin] 100 unit/mL (3 mL) insulin pen 32 unit SUBCUT QAM Jardiance 25 mg tablet 25 mg PO DAILY Spiriva Respimat 1.25 mcg/actuation mist 2 puff INHALATION DAILY azithromycin 250 mg tablet 250 mg PO DAILY benzonatate 200 mg capsule 200 mg PO DAILY hydrochlorothiazide 25 mg tablet 25 mg PO DAILY methylprednisolone 4 mg tablets,dose pack 4 mg PO DAILY Rx Instructions: Dose pack famotidine [Pepcid] 20 mg tablet 20 mg PO BID Qty: 10 0RF ondansetron 4 mg tablet,disintegrating 4 mg PO Q6H PRN (Reason: nausea and vomiting) Qty: 12 0RF atorvastatin 20 mg tablet 20 mg PO QPM prednisone 10 mg tablet 10 mg PO DAILY Qty: 42 0RF Rx Instructions: Take six Tablets daily for two days. Take five tablets daily for two days. Take four tablets daily for two days. Take three tablets daily for two days. Take two tablets daily for two days. Take one tablet daily for two days. Print Language: [place] Island[place] Instructions: Abdominal Pain (ED) Referrals: Physician,Non-Staff, MD [Primary Care Provider] - 1 week Discharge Date/Time: 05/31/24 03:25
[2024-05-31 01:10] LABS: Basophils Absolute Auto 0.1 10^3/uL (0.0-0.1); Basophils Percent Auto 0.8 % (0.2-2.0); Eosinophils Absolute Auto 0.2 10^3/uL (0.0-0.7); Eosinophils Percent Auto 2.7 % (0.9-7.0); Hematocrit 41.6 % (36.0-48.0); Hemoglobin 13.9 g/dL (12.0-16.0); Immature Granulocytes Abs Auto 0.02 10^3/uL (0.00-0.03); Immature Granulocytes Pct Auto 0.3 % (0.0-0.5); Lymphocytes Percent Auto 29.5 % (20.5-60.0); Mean Corpuscular HGB Conc 33.4 g/dL (29.9-35.2); Mean Corpuscular Volume 89.7 fL (81.0-99.0); Mean Platelet Volume 9.4 fL (9.5-13.5); Monocytes Absolute Auto 0.7 10^3/uL (0.3-0.8); Monocytes Percent Auto 10.9 % (1.7-12.0); Neutrophils Absolute Auto 3.7 10^3/uL (1.4-6.5); Neutrophils Percent Auto 55.8 % (43.0-75.0); Platelet Count 278 10^3/uL (150-450); Red Blood Count 4.64 10^6/uL (4.20-5.40); Red Cell Distribution Width 12.7 % (11.0-15.0); White Blood Count 6.6 10^3/uL (4.0-11.0)
[2024-05-31] MEDS: 0.9 % SODIUM CHLORIDE 500 ML IV (01:21)
[2024-05-31] MEDS: METHYLPREDNISOLONE SOD SUCC PF 125 MG/2 ML VIAL IVP (01:22)
[2024-05-31] MEDS: ONDANSETRON PF 4 MG/2 ML VIAL IV (01:22)
[2024-05-31 01:24] LABS: Alanine Aminotransferase 34 U/L (14-59); Albumin Globulin Ratio 0.9; Albumin Level 3.5 g/dL (3.4-5.0); Alkaline Phosphatase 85 U/L (46-116); Anion Gap 8.7; Aspartate Amino Transferase 21 U/L (15-37); BUN Creatinine Ratio 17.6; Bilirubin Total 0.6 mg/dL (0.2-1.0); Calcium 9.1 mg/dL (8.5-10.1); Carbon Dioxide 31.5 mmol/L (21.0-32.0); Chloride 103 mmol/L (98-107); Estimated GFR (African America >60 (>=60 mL/min/1.73m^2); Estimated GFR (Non-African Ame 58 (>=60 mL/min/1.73m^2); Globulin 3.8 g/dL; Glucose 116 mg/dL (74-106); Potassium 3.2 mmol/L (3.5-5.1); Sodium 140 mmol/L (136-145); Total Protein 7.3 g/dL (6.4-8.2)
== END 2024-05-31 03:25 | disposition home or self-care (01) ==
LOC: ER 00:38
PROVIDERS: Emergency Provider Emergency Medicine
DX: R10.9 Unspecified abdominal pain (principal); R11.0 Nausea; Z90.49 Acquired absence of other specified parts of digestive tract
CPT/HCPCS: 36415; 74022; 80053; 83690; 85025; 96374; 96375; 99284; J2405; J2919